=== PATIENT | female | born 1970 | race American Indian/Alaskan Native ===

== ENCOUNTER 2018-01-18 09:27 | Inpatient (IN) | payer MEDICARE ==
[2018-01-18] MEDS ORDERED: SOLU-Medrol IV ONE (09:54)
[2018-01-18] MEDS ORDERED: ATROVENT IH ONE (09:54)
[2018-01-18] MEDS ORDERED: PROVENTIL IH ONE (09:54)
[2018-01-18 10:16] LABS: Basophils # (Auto) 0.1 K/mm3 (0.0-0.1); Basophils % (Auto) 1.3 % (0.0-1.8); Eosinophils # (Auto) 0.1 K/mm3 (0.0-0.4); Eosinophils % (Auto) 1.2 % (0.0-4.3); Hematocrit 39.3 % (30.3-42.9); Hemoglobin 12.8 gm/dl (10.1-14.3); Lymphocytes # (Auto) 2.8 K/mm3 (1.2-5.4); Lymphocytes % (Auto) 37.7 % (13.4-35.0); Mean Corpuscular HGB Conc 33 % (30-34); Mean Corpuscular Hemoglobin 31 pg (28-32); Mean Corpuscular Volume 95 fl (79-97); Monocytes # (Auto) 0.8 K/mm3 (0.0-0.8); Monocytes % (Auto) 11.5 % (0.0-7.3); Platelet Count 247 K/mm3 (140-440); Red Blood Count 4.14 M/mm3 (3.65-5.03); Red Cell Distribution Width 15.2 % (13.2-15.2)
[2018-01-18] MEDS ORDERED: MAGNESIUM SULFATE 2GM/50ML 2 GM/50 ML BAG IV ONE (10:30)
[2018-01-18 10:32] LABS: BUN/Creatinine Ratio 20; Blood Urea Nitrogen 16 mg/dL (7-17); Calcium 9.4 mg/dL (8.4-10.2); Hemolysis Index 8
--- NOTE | 2018-01-18 10:35 | Emergency Department Report ---
ED Shortness of Breath HPI - General Chief Complaint: Dyspnea/Respdistress Stated Complaint: Time Seen by Provider: 01/18/18 09:43 Source: patient, EMS Mode of arrival: Stretcher Limitations: Other - History of Present Illness Initial Comments: 47 yo old female with a past medical history CHF, COPD (2 L oxygen dependent), diabetes, and hypertension presents to the hospital complaints of wheezing, shortness of breath, and hypoxia. Patient presents from [facility] with reported O2 saturation of 74% on room air. Patient apparently was recently discharged from [facility] with a diagnosis of pneumonia. Patient continues to have coughing, wheezing, and shortness of breath. Recently treated with antibiotics and steroids. As per medical record review patient was admitted here in September with acute hypoxic respiratory failure requiring intubation. No pain reported. - Related Data Home Medications Medication Instructions Recorded Confirmed Last Taken Docusate Sodium [Colace CAP] 100 mg PO BID 08/22/17 01/18/18 Unknown Fluticasone [Flonase] 1 spray NS BID 08/22/17 01/18/18 Unknown Loratadine [Claritin] 10 mg PO DAILY 08/22/17 01/18/18 Unknown Metformin HCl [Glucophage] 1,000 mg PO BID 08/22/17 01/18/18 Unknown Methadone [Dolophine] 5 mg PO BID 08/22/17 01/18/18 Unknown Furosemide [Lasix] 20 mg PO DAILY 01/18/18 01/18/18 Unknown Magnesium Citrate [Citrate of 300 ml PO DAILY 01/18/18 01/18/18 Unknown Magnesia] Previous Rx's Medication Instructions Recorded Last Taken Type Aspirin [Aspirin TAB] 325 mg PO QDAY #30 tablet 09/02/17 Unknown Rx Carvedilol [Coreg] 3.125 mg PO BID #60 tablet 09/02/17 Unknown Rx Losartan [Cozaar] 100 mg PO QDAY #30 tablet 09/02/17 Unknown Rx Famotidine [Pepcid] 20 mg PO BID #60 tablet 10/06/17 Unknown Rx Allergies Allergy/AdvReac Type Severity Reaction Status Date / Time Penicillins Allergy Unknown Verified 08/22/17 02:40 Sulfa (Sulfonamide Allergy Unknown Verified 08/22/17 02:41 Antibiotics) sulfabenzamide Allergy Unknown Verified 08/22/17 02:41 ED Review of Systems ROS: Stated complaint: Other details as noted in HPI Comment: All other systems reviewed and negative ED Past Medical Hx - Past Medical History Hx Hypertension: Yes Hx Heart Attack/AMI: No Hx Congestive Heart Failure: Yes Hx Diabetes: Yes Hx Deep Vein Thrombosis: No Hx Asthma: Yes Hx COPD: Yes - Surgical History Hx Pacemaker: No Hx Internal Defibrillator: No Additional Surgical History: Partial hysterectomy - Social History Smoking Status: Never Smoker Substance Use Type: None - Medications Home Medications: Home Medications Medication Instructions Recorded Confirmed Last Taken Type Docusate Sodium [Colace CAP] 100 mg PO BID 08/22/17 01/18/18 Unknown History Fluticasone [Flonase] 1 spray NS BID 08/22/17 01/18/18 Unknown History Loratadine [Claritin] 10 mg PO DAILY 08/22/17 01/18/18 Unknown History Metformin HCl [Glucophage] 1,000 mg PO BID 08/22/17 01/18/18 Unknown History Methadone [Dolophine] 5 mg PO BID 08/22/17 01/18/18 Unknown History Aspirin [Aspirin TAB] 325 mg PO QDAY #30 tablet 09/02/17 01/18/18 Unknown Rx Carvedilol [Coreg] 3.125 mg PO BID #60 tablet 09/02/17 01/18/18 Unknown Rx Losartan [Cozaar] 100 mg PO QDAY #30 tablet 09/02/17 01/18/18 Unknown Rx Famotidine [Pepcid] 20 mg PO BID #60 tablet 10/06/17 01/18/18 Unknown Rx Furosemide [Lasix] 20 mg PO DAILY 01/18/18 01/18/18 Unknown History Magnesium Citrate [Citrate of 300 ml PO DAILY 01/18/18 01/18/18 Unknown History Magnesia] ED Physical Exam - General Limitations: Other - Other Other exam information: General: No limitations, patient is alert in no acute distress Head exam: Atraumatic, normocephalic Eyes exam: Normal appearance ENT: Moist mucous membrane, nasal congestion Neck exam: Normal inspection, full range of motion, no meningismus nontender Respiratory exam: Bilateral wheezing, productive cough, chest wall nontender Cardiovascular: Normal rate and rhythm, normal heart sounds Abdomen: Soft, nondistended, and nontender, with normal bowel sounds, no rebound, or guarding Extremity: Full range of motion normal inspection no deformity, no edema or calf tenderness Back: Normal Inspection, full range of motion, no tenderness Neurologic: Alert, oriented x3, cranial nerves intact, right wrist drop from ( chronic). Equal arm and leg strength without focal deficit. Psychiatric: normal affect, normal mood Skin: Warm, dry, intact ED Course Vital Signs 01/18/18 01/18/18 01/18/18 09:59 10:00 10:15 Temperature Pulse Rate 90 104 H Pulse Rate [ 98 H Anterior Bilateral Throughout] Respiratory 21 18 Rate Respiratory 16 Rate [Anterior Bilateral Throughout] Blood Pressure 153/126 O2 Sat by Pulse 93 100 Oximetry 01/18/18 01/18/18 01/18/18 11:00 11:25 11:51 Temperature Pulse Rate 96 H 98 H Pulse Rate [ 97 H Anterior Bilateral Throughout] Respiratory 18 16 Rate Respiratory 16 Rate [Anterior Bilateral Throughout] Blood Pressure 119/82 119/82 O2 Sat by Pulse 95 97 Oximetry 01/18/18 01/18/18 01/18/18 11:56 12:00 12:11 Temperature 97.5 F L Pulse Rate 97 H 97 H Pulse Rate [ Anterior Bilateral Throughout] Respiratory 21 16 Rate Respiratory Rate [Anterior Bilateral Throughout] Blood Pressure 116/92 119/82 O2 Sat by Pulse 95 96 Oximetry 01/18/18 01/18/18 01/18/18 12:21 12:29 12:31 Temperature Pulse Rate 103 H 98 H 98 H Pulse Rate [ Anterior Bilateral Throughout] Respiratory 15 18 17 Rate Respiratory Rate [Anterior Bilateral Throughout] Blood Pressure 119/82 116/92 119/82 O2 Sat by Pulse 97 94 94 Oximetry 01/18/18 01/18/18 01/18/18 12:41 12:51 13:00 Temperature Pulse Rate 99 H 96 H 95 H Pulse Rate [ Anterior Bilateral Throughout] Respiratory 15 18 16 Rate Respiratory Rate [Anterior Bilateral Throughout] Blood Pressure 119/82 119/82 123/80 O2 Sat by Pulse 94 95 94 Oximetry ED Medical Decision Making - Lab Data Result diagrams: 01/18/18 09:53 01/18/18 09:53 Lab Results 01/18/18 01/18/18 01/18/18 Range/Units 09:53 09:53 10:05 WBC 7.4 (4.5-11.0) K/mm3 RBC 4.14 (3.65-5.03) M/mm3 Hgb 12.8 (10.1-14.3) gm/dl Hct 39.3 (30.3-42.9) % MCV 95 (79-97) fl MCH 31 (28-32) pg MCHC 33 (30-34) % RDW 15.2 (13.2-15.2) % Plt Count 247 (140-440) K/mm3 Lymph % (Auto) 37.7 H (13.4-35.0) % Ashley % (Auto) 11.5 H (0.0-7.3) % Eos % (Auto) 1.2 (0.0-4.3) % Baso % (Auto) 1.3 (0.0-1.8) % Lymph # 2.8 (1.2-5.4) K/mm3 Ashley # 0.8 (0.0-0.8) K/mm3 Eos # 0.1 (0.0-0.4) K/mm3 Baso # 0.1 (0.0-0.1) K/mm3 Seg Neutrophils % 48.3 (40.0-70.0) % Seg Neutrophils # 3.6 (1.8-7.7) K/mm3 POC ABG pH (7.35-7.45) POC ABG pCO2 (35-45) POC ABG pO2 (80-105) POC ABG HCO3 POC ABG Total CO2 POC ABG O2 Sat POC ABG Base Excess FiO2 % Sodium 136 L (137-145) mmol/L Potassium 4.5 (3.6-5.0) mmol/L Chloride 98.6 (98-107) mmol/L Carbon Dioxide 28 (22-30) mmol/L Anion Gap 14 mmol/L BUN 16 (7-17) mg/dL Creatinine 0.8 (0.7-1.2) mg/dL Estimated GFR > 60 ml/min BUN/Creatinine Ratio 20 % Glucose 105 H (65-100) mg/dL Calcium 9.4 (8.4-10.2) mg/dL NT-Pro-B Natriuret Pep 100.8 (0-450) pg/mL 01/18/18 Range/Units 10:16 WBC (4.5-11.0) K/mm3 RBC (3.65-5.03) M/mm3 Hgb (10.1-14.3) gm/dl Hct (30.3-42.9) % MCV (79-97) fl MCH (28-32) pg MCHC (30-34) % RDW (13.2-15.2) % Plt Count (140-440) K/mm3 Lymph % (Auto) (13.4-35.0) % Ashley % (Auto) (0.0-7.3) % Eos % (Auto) (0.0-4.3) % Baso % (Auto) (0.0-1.8) % Lymph # (1.2-5.4) K/mm3 Ashley # (0.0-0.8) K/mm3 Eos # (0.0-0.4) K/mm3 Baso # (0.0-0.1) K/mm3 Seg Neutrophils % (40.0-70.0) % Seg Neutrophils # (1.8-7.7) K/mm3 POC ABG pH 7.303 L (7.35-7.45) POC ABG pCO2 70.1 H (35-45) POC ABG pO2 68 L (80-105) POC ABG HCO3 34.7 POC ABG Total CO2 37 POC ABG O2 Sat 90 POC ABG Base Excess 8 FiO2 40 % Sodium (137-145) mmol/L Potassium (3.6-5.0) mmol/L Chloride (98-107) mmol/L Carbon Dioxide (22-30) mmol/L Anion Gap mmol/L BUN (7-17) mg/dL Creatinine (0.7-1.2) mg/dL Estimated GFR ml/min BUN/Creatinine Ratio % Glucose (65-100) mg/dL Calcium (8.4-10.2) mg/dL NT-Pro-B Natriuret Pep (0-450) pg/mL - EKG Data -: EKG Interpreted by Wi EKG shows normal: sinus rhythm, axis (qrs -16), QRS complexes (qrsd 89), ST-T waves (no stemi/t inv) Rate: tachycardia (101) - EKG Data When compared to previous EKG there are: no significant change - Radiology Data Radiology results: report reviewed AP CHEST: HISTORY: Shortness of breath Borderline heart size and pulmonary venous structures appear stable since 10/09/17. Mild linear scarring in the perihilar regions is also stable. No consolidation, pleural effusion or pneumothorax is identified. IMPRESSION: Borderline heart size and pulmonary venous structures. Perihilar scarring. No change since 10/09/17. - Medical Decision Making copd exacerbation pt requiring additional o2 support (above 2L) for adequate oxygenation tx with nebs, steroids, mag + co2 retention likely chronic given ph however compared to pervious values this year particulary May PH and co2 normal. BIPAP will be initiated cxr naf hosptitalist informed for admission repeat abg after 1.5 hr on bipap shows slightly worsening resp acidosis. BIPAP settings changed, Dr Daniels aware, dispo changed tele. pt will be monitored and abg repeated after changes as per further hospitalist orders - Differential Diagnosis pneumonia, CHF, bronchitis and COPD Critical Care Time: No Critical care attestation.: If time is entered above; I have spent that time in minutes in the direct care of this critically ill patient, excluding procedure time. ED Disposition Clinical Impression: COPD exacerbation, CO2 retention, Hypoxia, O2 dependent Disposition: 09 OP ADMIT IP TO THIS HOSP Is pt being admited?: Yes Condition: Stable Time of Disposition: 11:50 (Dr daniels/hosp)
--- NOTE | 2018-01-18 10:48 | XRay Report ---
AP CHEST: HISTORY: Shortness of breath Borderline heart size and pulmonary venous structures appear stable since 10/09/17. Mild linear scarring in the perihilar regions is also stable. No consolidation, pleural effusion or pneumothorax is identified. IMPRESSION: Borderline heart size and pulmonary venous structures. Perihilar scarring. No change since 10/09/17.
[2018-01-18] MEDS ORDERED: NON-FORMULARY (Metformin Hcl [Glucophage] 1,000 MG) PO SCH (15:30)
[2018-01-18] MEDS ORDERED: SODIUM CHLORIDE FLUSH SYRINGE 10 ML IV PRN ×2 (15:31→17:52)
[2018-01-18] MEDS ORDERED: DILAUDID IV PRN (15:31)
[2018-01-18] MEDS ORDERED: TYLENOL PO PRN ×2 (15:31→17:52)
[2018-01-18] MEDS ORDERED: ZOFRAN IV PRN ×2 (15:31→17:52)
[2018-01-18] MEDS ORDERED: PERCOCET 5/325 PO PRN ×2 (15:31→17:51)
[2018-01-18] MEDS ORDERED: SOLU-Medrol IV SCH (16:00)
[2018-01-18] MEDS: FLONASE NS SCH ×2 (16:00→22:00)
[2018-01-18] MEDS: DOLOPHINE PO SCH ×2 (16:00→22:53)
[2018-01-18] MEDS: CLARITIN PO SCH (16:00)
[2018-01-18] MEDS ORDERED: PEPCID PO SCH (16:00)
[2018-01-18] MEDS ORDERED: DUONEB *Not for PRN Use IH ONE (16:53)
[2018-01-18] MEDS: DUONEB *Not for PRN Use IH SCH ×2 (17:02→21:09)
[2018-01-18] MEDS: LEVAQUIN 750MG/150ML 750 MG/150 ML BAG IV SCH ×2 (17:53→18:06)
[2018-01-18] MEDS ORDERED: PROVENTIL IH PRN (17:56)
[2018-01-18] MEDS: ASPIRIN PO SCH (18:03)
[2018-01-18] MEDS ORDERED: HumuLIN R ONE (18:04)
[2018-01-18] MEDS ORDERED: GLUCOPHAGE ONE (18:05)
[2018-01-18] MEDS ORDERED: ASPIRIN ONE (18:05)
[2018-01-18] MEDS: GLUCOPHAGE PO SCH (18:06)
[2018-01-18] MEDS ORDERED: PERCOCET 5/325 ONE (18:06)
[2018-01-18] MEDS: HumaLOG SUB-Q SCH ×2 (18:06→21:51)
[2018-01-18] MEDS ORDERED: LEVAQUIN 750MG/150ML 750 MG/150 ML BAG IV ONE (18:09)
[2018-01-18] MEDS ORDERED: LASIX ONE (19:52)
[2018-01-18] MEDS ORDERED: PEPCID ONE (19:52)
[2018-01-18] MEDS ORDERED: CITRATE OF MAGNESIA PO ONE (19:52)
[2018-01-18] MEDS ORDERED: SOLU-Medrol ONE ×2 (19:53→19:54)
[2018-01-18] MEDS ORDERED: COLACE ONE (19:53)
[2018-01-18] MEDS ORDERED: COREG ONE (19:53)
[2018-01-18] MEDS ORDERED: COZAAR ONE (19:54)
[2018-01-18] MEDS: CITRATE OF MAGNESIA PO SCH (20:29)
[2018-01-18] MEDS: COLACE PO SCH ×2 (20:29→22:54)
[2018-01-18] MEDS: COREG PO SCH ×2 (20:29→22:55)
[2018-01-18] MEDS: SOLU-Medrol IV SCH ×2 (20:37→22:55)
[2018-01-18] MEDS: COZAAR PO SCH (20:37)
[2018-01-18] MEDS: LASIX PO SCH (20:37)
[2018-01-18] MEDS ORDERED: SODIUM CHLORIDE FLUSH SYRINGE 10 ML IV SCH (22:00)
[2018-01-18] MEDS: PEPCID PO SCH (22:54)
[2018-01-18] MEDS: SODIUM CHLORIDE FLUSH SYRINGE 10 ML IV SCH (22:56)
[2018-01-19 05:16] LABS: Basophils % (Auto) 0.3 % (0.0-1.8); Hematocrit 41.4 % (30.3-42.9); Lymphocytes % (Auto) 14.8 % (13.4-35.0); Mean Corpuscular HGB Conc 32 % (30-34); Mean Corpuscular Hemoglobin 30 pg (28-32); Mean Corpuscular Volume 95 fl (79-97); Monocytes # (Auto) 0.1 K/mm3 (0.0-0.8); Monocytes % (Auto) 1.8 % (0.0-7.3); Platelet Count 252 K/mm3 (140-440); Red Blood Count 4.35 M/mm3 (3.65-5.03)
[2018-01-19] MEDS: SOLU-Medrol IV SCH ×3 (05:34→21:59)
[2018-01-19 05:44] LABS: Alanine Aminotransferase 12 units/L (7-56); Albumin 4.2 g/dL (3.9-5); BUN/Creatinine Ratio 29; Blood Urea Nitrogen 23 mg/dL (7-17); Calcium 9.3 mg/dL (8.4-10.2); Hemolysis Index 3
[2018-01-19] MEDS: MORPHINE IV PRN ×2 (06:21→17:33)
[2018-01-19] MEDS: DUONEB *Not for PRN Use IH SCH ×3 (07:39→19:58)
--- NOTE | 2018-01-19 08:26 | History and Physical Report ---
History of Present Illness Date of examination: 01/18/18 Date of admission: 01/18/18 12:11 Chief complaint: CC Increasing SOB for 1 day History of present illness: History of Present Illness: 47 yo old female with a past medical history CHF, COPD (2 L oxygen dependent), diabetes, and hypertension presents to the hospital complaints of wheezing, shortness of breath, and hypoxia. Patient presents from [facility] with reported O2 saturation of 74% on room air. Patient apparently was recently discharged from [facility] with a diagnosis of pneumonia. Patient continues to have coughing, wheezing, and shortness of breath. Recently treated with antibiotics and steroids. As per medical record review patient was admitted here in September with acute hypoxic respiratory failure requiring intubation. No pain reported. Past Medical History Hx Hypertension: Yes Hx Heart Attack/AMI: No Hx Congestive Heart Failure: Yes Hx Diabetes: Yes Hx Deep Vein Thrombosis: No Hx Asthma: Yes Hx COPD: Yes Surgical History Partial hysterectomy Social History Smoking Status: Never Smoker Substance Use Type: None Family History Htn - Medications Home Medications: Home Medications Medication Instructions Recorded Confirmed Last Taken Type Docusate Sodium [Colace CAP] 100 mg PO BID 08/22/17 01/18/18 Unknown History Fluticasone [Flonase] 1 spray NS BID 08/22/17 01/18/18 Unknown History Loratadine [Claritin] 10 mg PO DAILY 08/22/17 01/18/18 Unknown History Metformin HCl [Glucophage] 1,000 mg PO BID 08/22/17 01/18/18 Unknown History Methadone [Dolophine] 5 mg PO BID 08/22/17 01/18/18 Unknown History Aspirin [Aspirin TAB] 325 mg PO QDAY #30 tablet 09/02/17 01/18/18 Unknown Rx Carvedilol [Coreg] 3.125 mg PO BID #60 tablet 09/02/17 01/18/18 Unknown Rx Losartan [Cozaar] 100 mg PO QDAY #30 tablet 09/02/17 01/18/18 Unknown Rx Famotidine [Pepcid] 20 mg PO BID #60 tablet 10/06/17 01/18/18 Unknown Rx Furosemide [Lasix] 20 mg PO DAILY 01/18/18 01/18/18 Unknown History Magnesium Citrate [Citrate of 300 ml PO DAILY 01/18/18 01/18/18 Unknown History Magnesia] Review of Systems ROS: Stated complaint: Other details as noted in HPI Comment: All other systems reviewed and negative Medications and Allergies Allergies Allergy/AdvReac Type Severity Reaction Status Date / Time Penicillins Allergy Unknown Verified 08/22/17 02:40 Sulfa (Sulfonamide Allergy Unknown Verified 08/22/17 02:41 Antibiotics) sulfabenzamide Allergy Unknown Verified 08/22/17 02:41 Home Medications Medication Instructions Recorded Confirmed Last Taken Type Docusate Sodium [Colace CAP] 100 mg PO BID 08/22/17 01/18/18 Unknown History Fluticasone [Flonase] 1 spray NS BID 08/22/17 01/18/18 Unknown History Loratadine [Claritin] 10 mg PO DAILY 08/22/17 01/18/18 Unknown History Metformin HCl [Glucophage] 1,000 mg PO BID 08/22/17 01/18/18 Unknown History Methadone [Dolophine] 5 mg PO BID 08/22/17 01/18/18 Unknown History Aspirin [Aspirin TAB] 325 mg PO QDAY #30 tablet 09/02/17 01/18/18 Unknown Rx Carvedilol [Coreg] 3.125 mg PO BID #60 tablet 09/02/17 01/18/18 Unknown Rx Losartan [Cozaar] 100 mg PO QDAY #30 tablet 09/02/17 01/18/18 Unknown Rx Famotidine [Pepcid] 20 mg PO BID #60 tablet 10/06/17 01/18/18 Unknown Rx Furosemide [Lasix] 20 mg PO DAILY 01/18/18 01/18/18 Unknown History Magnesium Citrate [Citrate of 300 ml PO DAILY 01/18/18 01/18/18 Unknown History Magnesia] Active Meds: Active Medications Acetaminophen (Tylenol) 650 mg PO Q4H PRN PRN Reason: Pain MILD(1-3)/Fever >100.5/ARMSTRONG Albuterol (Proventil) 2.5 mg IH Q4HRT PRN PRN Reason: Shortness Of Breath Albuterol/Ipratropium (Duoneb *Not For Prn Use*) 1 ampul IH TIDRT [facility] Aspirin (Aspirin) 325 mg PO QDAY [facility] Last Admin: 01/18/18 18:03 Dose: 325 mg Carvedilol (Coreg) 3.125 mg PO BID [facility] Last Admin: 01/18/18 22:55 Dose: 3.125 mg Docusate Sodium (Colace) 100 mg PO BID [facility] Last Admin: 01/18/18 22:54 Dose: 100 mg Famotidine (Pepcid) 20 mg PO BID [facility] Last Admin: 01/18/18 22:54 Dose: 20 mg Fluticasone Propionate (Flonase) 50 mcg NS BID [facility] Furosemide (Lasix) 20 mg PO DAILY [facility] Last Admin: 01/18/18 20:37 Dose: 20 mg Hydromorphone HCl (Dilaudid) 0.5 mg IV Q3H PRN PRN Reason: Pain , Severe (7-10) Levofloxacin/Dextrose (Levaquin 750mg/150ml) 750 mg in 150 mls @ 100 mls/hr IV Q24HR [facility]; Protocol Last Infusion: 01/18/18 19:36 Dose: Infused Insulin Human Lispro (Humalog) 0 unit SUB-Q ACHS [facility]; Protocol Last Admin: 01/18/18 21:51 Dose: 3 unit Loratadine (Claritin) 10 mg PO DAILY [facility] Losartan Potassium (Cozaar) 100 mg PO QDAY [facility] Last Admin: 01/18/18 20:37 Dose: 100 mg Magnesium Citrate (Citrate Of Magnesia) 300 ml PO DAILY [facility] Last Admin: 01/18/18 20:29 Dose: 300 ml Metformin HCl (Glucophage) 1,000 mg PO BIDDIAB [facility] Last Admin: 01/18/18 18:06 Dose: 1,000 mg Methadone HCl (Dolophine) 5 mg PO BID [facility] Last Admin: 01/18/18 22:53 Dose: 5 mg Methylprednisolone Sodium Succinate (Solu-Medrol) 80 mg IV Q8HR [facility] Last Admin: 01/19/18 05:34 Dose: 80 mg Morphine Sulfate (Morphine) 2 mg IV Q4H PRN PRN Reason: Pain, Moderate (4-6) Last Admin: 01/19/18 06:21 Dose: 2 mg Ondansetron HCl (Zofran) 4 mg IV Q8H PRN PRN Reason: Nausea And Vomiting Ondansetron HCl (Zofran) 4 mg IV Q8H PRN PRN Reason: Nausea And Vomiting Oxycodone/Acetaminophen (Percocet 5/325) 1 tab PO Q6H PRN PRN Reason: Pain, Moderate (4-6) Last Admin: 01/18/18 18:07 Dose: 1 tab Sodium Chloride (Sodium Chloride Flush Syringe 10 Ml) 10 ml IV BID [facility] Last Admin: 01/18/18 22:56 Dose: 10 ml Sodium Chloride (Sodium Chloride Flush Syringe 10 Ml) 10 ml IV PRN PRN PRN Reason: LINE FLUSH Exam - Constitutional Vitals: Temp Pulse Resp BP Pulse Ox 97.8 F 92 H 12 126/91 96 01/19/18 08:00 01/19/18 07:50 01/19/18 07:50 01/19/18 07:00 01/19/18 07:45 General appearance: Present: mild distress, well-nourished - EENT Eyes: Present: PERRL ENT: hearing intact, clear oral mucosa - Neck Neck: Present: supple, normal ROM - Respiratory Respiratory effort: normal Respiratory: bilateral: rhonchi - Cardiovascular Heart rate: 78 Rhythm: regular Heart Sounds: Present: S1 & S2. Absent: rub, click - Extremities Extremities: no ischemia, pulses intact, pulses symmetrical, No edema Peripheral Pulses: within normal limits - Abdominal General gastrointestinal: Present: soft, non-tender, non-distended, normal bowel sounds Female genitourinary: Present: normal - Integumentary Integumentary: Present: clear, warm, dry - Musculoskeletal Musculoskeletal: gait normal, strength equal bilaterally - Psychiatric Psychiatric: appropriate mood/affect, intact judgment & insight - Neurologic Neurologic: CNII-XII intact, moves all extremities - Allied Health Allied health notes reviewed: nursing, case management Results - Labs CBC & Chem 7: 01/19/18 04:09 01/19/18 04:09 Labs: Laboratory Last Values WBC 6.8 K/mm3 (4.5-11.0) 01/19/18 04:09 RBC 4.35 M/mm3 (3.65-5.03) 01/19/18 04:09 Hgb 13.0 gm/dl (10.1-14.3) 01/19/18 04:09 Hct 41.4 % (30.3-42.9) 01/19/18 04:09 MCV 95 fl (79-97) 01/19/18 04:09 MCH 30 pg (28-32) 01/19/18 04:09 MCHC 32 % (30-34) 01/19/18 04:09 RDW 15.0 % (13.2-15.2) 01/19/18 04:09 Plt Count 252 K/mm3 (140-440) 01/19/18 04:09 Lymph % (Auto) 14.8 % (13.4-35.0) 01/19/18 04:09 [place] % (Auto) 1.8 % (0.0-7.3) 01/19/18 04:09 Eos % (Auto) 0.0 % (0.0-4.3) 01/19/18 04:09 Baso % (Auto) 0.3 % (0.0-1.8) 01/19/18 04:09 Lymph # 1.0 K/mm3 (1.2-5.4) L 01/19/18 04:09 [place] # 0.1 K/mm3 (0.0-0.8) 01/19/18 04:09 Eos # 0.0 K/mm3 (0.0-0.4) 01/19/18 04:09 Baso # 0.0 K/mm3 (0.0-0.1) 01/19/18 04:09 Seg Neutrophils % 83.1 % (40.0-70.0) H 01/19/18 04:09 Seg Neutrophils # 5.7 K/mm3 (1.8-7.7) 01/19/18 04:09 POC ABG pH 7.431 (7.35-7.45) 01/19/18 06:30 POC ABG pCO2 50.9 (35-45) H 01/19/18 06:30 POC ABG pO2 91 (80-105) 01/19/18 06:30 POC ABG HCO3 33.9 01/19/18 06:30 POC ABG Total CO2 35 01/19/18 06:30 POC ABG O2 Sat 97 01/19/18 06:30 POC ABG Base Excess 10 01/19/18 06:30 FiO2 5 % 01/19/18 06:30 Sodium 138 mmol/L (137-145) 01/19/18 04:09 Potassium 5.7 mmol/L (3.6-5.0) H D 01/19/18 04:09 Chloride 98.8 mmol/L (98-107) 01/19/18 04:09 Carbon Dioxide 31 mmol/L (22-30) H 01/19/18 04:09 Anion Gap 14 mmol/L 01/19/18 04:09 BUN 23 mg/dL (7-17) H 01/19/18 04:09 Creatinine 0.8 mg/dL (0.7-1.2) 01/19/18 04:09 Estimated GFR > 60 ml/min 01/19/18 04:09 BUN/Creatinine Ratio 29 % 01/19/18 04:09 Glucose 169 mg/dL (65-100) H 01/19/18 04:09 POC Glucose 186 (70-105) H 01/19/18 07:59 Hemoglobin A1c 7.9 % (4-6) H 01/18/18 16:18 Calcium 9.3 mg/dL (8.4-10.2) 01/19/18 04:09 Total Bilirubin < 0.20 mg/dL (0.1-1.2) 01/19/18 04:09 AST 11 units/L (5-40) 01/19/18 04:09 ALT 12 units/L (7-56) 01/19/18 04:09 Alkaline Phosphatase 90 units/L (35-129) 01/19/18 04:09 NT-Pro-B Natriuret Pep 100.8 pg/mL (0-450) 01/18/18 10:05 Total Protein 7.1 g/dL (6.3-8.2) 01/19/18 04:09 Albumin 4.2 g/dL (3.9-5) 01/19/18 04:09 Albumin/Globulin Ratio 1.4 % 01/19/18 04:09 Short CBC 01/18/18 01/19/18 Range/Units 09:53 04:09 WBC 7.4 6.8 (4.5-11.0) K/mm3 Hgb 12.8 13.0 (10.1-14.3) gm/dl Hct 39.3 41.4 (30.3-42.9) % Plt Count 247 252 (140-440) K/mm3 BMP 01/18/18 01/19/18 09:53 04:09 Sodium 136 L 138 Potassium 4.5 5.7 H D Chloride 98.6 98.8 Carbon Dioxide 28 31 H BUN 16 23 H Creatinine 0.8 0.8 Glucose 105 H 169 H Calcium 9.4 9.3 Liver Function 01/19/18 Range/Units 04:09 Total Bilirubin < 0.20 (0.1-1.2) mg/dL AST 11 (5-40) units/L ALT 12 (7-56) units/L Alkaline Phosphatase 90 (35-129) units/L Albumin 4.2 (3.9-5) g/dL - Imaging and Cardiology EKG: report reviewed Imaging and Cardiology: CXR IMPRESSION: Borderline heart size and pulmonary venous structures. Perihilar scarring. No change since 10/09/17. Assessment and Plan Assessment and plan: Critical care Statement: The high probability of a clinically significant, sudden or life threatening deterioration of the [Pulmonary, cadiac, renal] system(s) required my full and direct attention, intervention and personal management. The aggregate critical care time was [45] minutes. This time is in addition to time spent performing reported procedures but includes the following: [x] Data Review and interpretation [x] Patient assessment and monitoring of vital signs [x] Documentation [x] Medication orders and management Advance Directives: Yes (Full code) VTE prophylaxis?: Chemical Plan of care discussed with patient/family: Yes - Patient Problems (1) Hypercapnic respiratory failure Current Visit: No Status: Acute Qualifiers: Chronicity: acute on chronic Qualified Code(s): J96.22 - Acute and chronic respiratory failure with hypercapnia Plan to address problem: COnt Bipap If necessary intubate ICU admit Senior System Operator consult (2) COPD exacerbation Current Visit: Yes Status: Acute Plan to address problem: IV Solumedrol IV Levaquin and Duonebs Bipap (3) HTN (hypertension) Current Visit: Yes Status: Chronic Qualifiers: Hypertension type: essential hypertension Qualified Code(s): I10 - Essential (primary) hypertension Plan to address problem: Cont Antihypertensives (4) CHF (congestive heart failure) Current Visit: Yes Status: Chronic Qualifiers: Heart failure type: combined systolic and diastolic Plan to address problem: Cont Furosemide ARB'sand Beta pedro (5) GERD (gastroesophageal reflux disease) Current Visit: Yes Status: Acute Qualifiers: Esophagitis presence: without esophagitis Qualified Code(s): K21.9 - Gastro -esophageal reflux disease without esophagitis Plan to address problem: Cont PPI's (6) T2DM (type 2 diabetes mellitus) Current Visit: Yes Status: Chronic Qualifiers: Diabetes mellitus intermediate frame tender insulin use: without intermediate frame tender use Plan to address problem: Cont Oral Hypoglycemics and coverage (7) DVT prophylaxis Current Visit: Yes Status: Acute Plan to address problem: On lovenox and GI prophylaxis
[2018-01-19] MEDS: HumaLOG SUB-Q SCH ×4 (08:58→22:13)
[2018-01-19] MEDS: COLACE PO SCH ×2 (09:04→22:00)
[2018-01-19] MEDS: ASPIRIN PO SCH (09:04)
[2018-01-19] MEDS: CLARITIN PO SCH (09:04)
[2018-01-19] MEDS: DOLOPHINE PO SCH ×2 (09:04→22:00)
[2018-01-19] MEDS: COZAAR PO SCH (09:04)
[2018-01-19] MEDS: LEVAQUIN 750MG/150ML 750 MG/150 ML BAG IV SCH (09:05)
[2018-01-19] MEDS: PEPCID PO SCH ×2 (09:05→22:00)
[2018-01-19] MEDS: GLUCOPHAGE PO SCH ×2 (09:05→17:33)
[2018-01-19] MEDS: COREG PO SCH ×2 (09:05→22:01)
[2018-01-19] MEDS: LASIX PO SCH (09:05)
[2018-01-19] MEDS: CITRATE OF MAGNESIA PO SCH (09:05)
[2018-01-19] MEDS: FLONASE NS SCH ×2 (09:06→22:19)
[2018-01-19] MEDS: SODIUM CHLORIDE FLUSH SYRINGE 10 ML IV SCH ×2 (09:06→22:03)
[2018-01-19] MEDS ORDERED: KIONEX PO ONE (10:00)
[2018-01-19] MEDS: ATIVAN PO SCH ×4 (10:00→22:12)
[2018-01-19] MEDS: MIRALAX 3350 PO SCH (10:01)
[2018-01-19] MEDS: celeXA PO SCH (10:01)
--- NOTE | 2018-01-19 10:57 | Consultation ---
History of Present Illness Consult date: 01/19/18 Requesting physician: JENNY JIMENEZ Medications and Allergies Allergies Allergy/AdvReac Type Severity Reaction Status Date / Time Penicillins Allergy Unknown Verified 08/22/17 02:40 Sulfa (Sulfonamide Allergy Unknown Verified 08/22/17 02:41 Antibiotics) sulfabenzamide Allergy Unknown Verified 08/22/17 02:41 Home Medications Medication Instructions Recorded Confirmed Last Taken Type Docusate Sodium [Colace CAP] 100 mg PO BID 08/22/17 01/18/18 Unknown History Fluticasone [Flonase] 1 spray NS BID 08/22/17 01/18/18 Unknown History Loratadine [Claritin] 10 mg PO DAILY 08/22/17 01/18/18 Unknown History Metformin HCl [Glucophage] 1,000 mg PO BID 08/22/17 01/18/18 Unknown History Methadone [Dolophine] 5 mg PO BID 08/22/17 01/18/18 Unknown History Aspirin [Aspirin TAB] 325 mg PO QDAY #30 tablet 09/02/17 01/18/18 Unknown Rx Carvedilol [Coreg] 3.125 mg PO BID #60 tablet 09/02/17 01/18/18 Unknown Rx Losartan [Cozaar] 100 mg PO QDAY #30 tablet 09/02/17 01/18/18 Unknown Rx Famotidine [Pepcid] 20 mg PO BID #60 tablet 10/06/17 01/18/18 Unknown Rx Furosemide [Lasix] 20 mg PO DAILY 01/18/18 01/18/18 Unknown History Magnesium Citrate [Citrate of 300 ml PO DAILY 01/18/18 01/18/18 Unknown History Magnesia] Active Meds: Active Medications Acetaminophen (Tylenol) 650 mg PO Q4H PRN PRN Reason: Pain MILD(1-3)/Fever >100.5/ARMSTRONG Albuterol (Proventil) 2.5 mg IH Q4HRT PRN PRN Reason: Shortness Of Breath Albuterol/Ipratropium (Duoneb *Not For Prn Use*) 1 ampul IH TIDRT [facility] Aspirin (Aspirin) 325 mg PO QDAY [facility] Last Admin: 01/19/18 09:04 Dose: 325 mg Carvedilol (Coreg) 3.125 mg PO BID [facility] Last Admin: 01/19/18 09:05 Dose: 3.125 mg Citalopram Hydrobromide (Celexa) 20 mg PO QDAY [facility] Last Admin: 01/19/18 10:01 Dose: 20 mg Docusate Sodium (Colace) 100 mg PO BID [facility] Last Admin: 01/19/18 09:04 Dose: 100 mg Famotidine (Pepcid) 20 mg PO BID [facility] Last Admin: 01/19/18 09:05 Dose: 20 mg Fluticasone Propionate (Flonase) 50 mcg NS BID [facility] Last Admin: 01/19/18 09:06 Dose: 50 mcg Furosemide (Lasix) 20 mg PO DAILY [facility] Last Admin: 01/19/18 09:05 Dose: 20 mg Heparin Sodium (Porcine) (Heparin) 5,000 unit SUB-Q Q8HR [facility] Hydromorphone HCl (Dilaudid) 0.5 mg IV Q3H PRN PRN Reason: Pain , Severe (7-10) Levofloxacin/Dextrose (Levaquin 750mg/150ml) 750 mg in 150 mls @ 100 mls/hr IV Q24HR [facility]; Protocol Last Admin: 01/19/18 09:05 Dose: 750 mls/hr Insulin Human Lispro (Humalog) 0 unit SUB-Q ACHS [facility]; Protocol Last Admin: 01/19/18 08:58 Dose: 2 unit Loratadine (Claritin) 10 mg PO DAILY [facility] Last Admin: 01/19/18 09:04 Dose: 10 mg Lorazepam (Ativan) 1 mg PO Q4H [facility] Last Admin: 01/19/18 10:00 Dose: 1 mg Losartan Potassium (Cozaar) 100 mg PO QDAY [facility] Last Admin: 01/19/18 09:04 Dose: 100 mg Magnesium Citrate (Citrate Of Magnesia) 300 ml PO DAILY [facility] Last Admin: 01/19/18 09:05 Dose: 300 ml Metformin HCl (Glucophage) 1,000 mg PO BIDDIAB [facility] Last Admin: 01/19/18 09:05 Dose: 1,000 mg Methadone HCl (Dolophine) 5 mg PO BID [facility] Last Admin: 01/19/18 09:04 Dose: 5 mg Methylprednisolone Sodium Succinate (Solu-Medrol) 40 mg IV Q8HR [facility] Morphine Sulfate (Morphine) 2 mg IV Q4H PRN PRN Reason: Pain, Moderate (4-6) Last Admin: 01/19/18 06:21 Dose: 2 mg Ondansetron HCl (Zofran) 4 mg IV Q8H PRN PRN Reason: Nausea And Vomiting Oxycodone/Acetaminophen (Percocet 5/325) 1 tab PO Q6H PRN PRN Reason: Pain, Moderate (4-6) Last Admin: 01/18/18 18:07 Dose: 1 tab Polyethylene Glycol (Miralax 3350) 17 gm PO QDAY [facility] Last Admin: 01/19/18 10:01 Dose: 17 gm Quetiapine Fumarate (Seroquel) 200 mg PO QHS [facility] Sodium Chloride (Sodium Chloride Flush Syringe 10 Ml) 10 ml IV BID [facility] Last Admin: 01/19/18 09:06 Dose: 10 ml Sodium Chloride (Sodium Chloride Flush Syringe 10 Ml) 10 ml IV PRN PRN PRN Reason: LINE FLUSH Trazodone HCl (Desyrel) 50 mg PO QHS [facility] Physical Examination Vital signs: Vital Signs Pulse Resp Pulse Ox 90 21 93 01/18/18 09:59 01/18/18 09:59 01/18/18 09:59 Results - Laboratory Findings CBC and BMP: 01/19/18 04:09 01/19/18 04:09 ABG POC ABG pH 7.431 (7.35-7.45) 01/19/18 06:30 POC ABG pCO2 50.9 (35-45) H 01/19/18 06:30 POC ABG pO2 91 (80-105) 01/19/18 06:30 POC ABG HCO3 33.9 01/19/18 06:30 POC ABG Total CO2 35 01/19/18 06:30 POC ABG O2 Sat 97 01/19/18 06:30 Abnormal lab findings: Abnormal Labs 01/18/18 01/18/18 01/18/18 09:53 09:53 10:16 Lymph % (Auto) 37.7 H [place] % (Auto) 11.5 H Lymph # Seg Neutrophils % POC ABG pH 7.303 L POC ABG pCO2 70.1 H POC ABG pO2 68 L Sodium 136 L Potassium Carbon Dioxide BUN Glucose 105 H POC Glucose Hemoglobin A1c 01/18/18 01/18/18 01/18/18 14:12 16:18 17:00 Lymph % (Auto) [place] % (Auto) Lymph # Seg Neutrophils % POC ABG pH 7.247 L 7.285 L POC ABG pCO2 74.3 H 68.6 H POC ABG pO2 Sodium Potassium Carbon Dioxide BUN Glucose POC Glucose Hemoglobin A1c 7.9 H 01/18/18 01/18/18 01/19/18 17:28 21:46 04:09 Lymph % (Auto) [place] % (Auto) Lymph # 1.0 L Seg Neutrophils % 83.1 H POC ABG pH POC ABG pCO2 POC ABG pO2 Sodium Potassium Carbon Dioxide BUN Glucose POC Glucose 153 H 236 H Hemoglobin A1c 01/19/18 01/19/18 01/19/18 04:09 06:30 07:59 Lymph % (Auto) [place] % (Auto) Lymph # Seg Neutrophils % POC ABG pH POC ABG pCO2 50.9 H POC ABG pO2 Sodium Potassium 5.7 H D Carbon Dioxide 31 H BUN 23 H Glucose 169 H POC Glucose 186 H Hemoglobin A1c
[2018-01-19] MEDS: HEPARIN SUB-Q SCH ×2 (14:16→21:59)
[2018-01-19] MEDS: DESYREL PO SCH (22:19)
[2018-01-20] MEDS: ATIVAN PO SCH ×6 (02:32→21:35)
[2018-01-20] MEDS: SOLU-Medrol IV SCH ×3 (05:51→21:34)
[2018-01-20] MEDS: HEPARIN SUB-Q SCH ×3 (05:51→21:37)
[2018-01-20] MEDS: HumaLOG SUB-Q SCH ×4 (09:23→21:37)
--- NOTE | 2018-01-20 09:23 | Progress Note ---
Subjective Date of service: 01/20/18 Objective Vital Signs - 12hr 01/19/18 01/19/18 01/19/18 22:00 22:01 23:35 Temperature 98.3 F Pulse Rate 97 H Respiratory 20 18 Rate Blood Pressure 129/62 111/63 O2 Sat by Pulse Oximetry 01/20/18 01/20/18 01/20/18 00:07 05:00 06:00 Temperature 97.9 F Pulse Rate 86 79 Respiratory 20 20 Rate Blood Pressure 149/89 O2 Sat by Pulse 96 95 88 Oximetry 01/20/18 09:00 Temperature Pulse Rate Respiratory 18 Rate Blood Pressure O2 Sat by Pulse Oximetry CBC and BMP: 01/19/18 04:09 01/19/18 04:09 ABG, PT/INR, D-dimer: ABG POC ABG pH 7.431 (7.35-7.45) 01/19/18 06:30 POC ABG pCO2 50.9 (35-45) H 01/19/18 06:30 POC ABG pO2 91 (80-105) 01/19/18 06:30 POC ABG HCO3 33.9 01/19/18 06:30 POC ABG Total CO2 35 01/19/18 06:30 POC ABG O2 Sat 97 01/19/18 06:30 Abnormal lab findings: Abnormal Labs 01/18/18 01/18/18 01/18/18 09:53 09:53 10:16 Lymph % (Auto) 37.7 H [place] % (Auto) 11.5 H Lymph # Seg Neutrophils % POC ABG pH 7.303 L POC ABG pCO2 70.1 H POC ABG pO2 68 L Sodium 136 L Potassium Carbon Dioxide BUN Glucose 105 H POC Glucose Hemoglobin A1c 01/18/18 01/18/18 01/18/18 14:12 16:18 17:00 Lymph % (Auto) [place] % (Auto) Lymph # Seg Neutrophils % POC ABG pH 7.247 L 7.285 L POC ABG pCO2 74.3 H 68.6 H POC ABG pO2 Sodium Potassium Carbon Dioxide BUN Glucose POC Glucose Hemoglobin A1c 7.9 H 01/18/18 01/18/18 01/19/18 17:28 21:46 04:09 Lymph % (Auto) [place] % (Auto) Lymph # 1.0 L Seg Neutrophils % 83.1 H POC ABG pH POC ABG pCO2 POC ABG pO2 Sodium Potassium Carbon Dioxide BUN Glucose POC Glucose 153 H 236 H Hemoglobin A1c 01/19/18 01/19/18 01/19/18 04:09 06:30 07:59 Lymph % (Auto) [place] % (Auto) Lymph # Seg Neutrophils % POC ABG pH POC ABG pCO2 50.9 H POC ABG pO2 Sodium Potassium 5.7 H D Carbon Dioxide 31 H BUN 23 H Glucose 169 H POC Glucose 186 H Hemoglobin A1c 01/19/18 01/19/18 01/19/18 11:54 16:05 21:39 Lymph % (Auto) [place] % (Auto) Lymph # Seg Neutrophils % POC ABG pH POC ABG pCO2 POC ABG pO2 Sodium Potassium Carbon Dioxide BUN Glucose POC Glucose 253 H 131 H 232 H Hemoglobin A1c 01/20/18 07:19 Lymph % (Auto) [place] % (Auto) Lymph # Seg Neutrophils % POC ABG pH POC ABG pCO2 POC ABG pO2 Sodium Potassium Carbon Dioxide BUN Glucose POC Glucose 230 H Hemoglobin A1c
[2018-01-20] MEDS: DUONEB *Not for PRN Use IH SCH ×3 (09:42→19:49)
[2018-01-20] MEDS: COZAAR PO SCH (10:12)
[2018-01-20] MEDS: DOLOPHINE PO SCH ×2 (10:12→21:34)
[2018-01-20] MEDS: COLACE PO SCH ×2 (10:13→21:35)
[2018-01-20] MEDS: FLONASE NS SCH ×2 (10:13→21:36)
[2018-01-20] MEDS: COREG PO SCH ×2 (10:13→21:35)
[2018-01-20] MEDS: PEPCID PO SCH ×2 (10:13→21:35)
[2018-01-20] MEDS: CLARITIN PO SCH (10:13)
[2018-01-20] MEDS: LASIX PO SCH (10:13)
[2018-01-20] MEDS: celeXA PO SCH (10:13)
[2018-01-20] MEDS: ASPIRIN PO SCH (10:14)
[2018-01-20] MEDS: LEVAQUIN 750MG/150ML 750 MG/150 ML BAG IV SCH (10:14)
[2018-01-20] MEDS: SODIUM CHLORIDE FLUSH SYRINGE 10 ML IV SCH ×2 (10:30→21:34)
[2018-01-20] MEDS: CITRATE OF MAGNESIA PO SCH (10:31)
[2018-01-20] MEDS: MIRALAX 3350 PO SCH (10:31)
[2018-01-20] MEDS: GLUCOPHAGE PO SCH ×2 (10:34→17:35)
[2018-01-20] MEDS: MORPHINE IV PRN ×2 (12:41→19:56)
--- NOTE | 2018-01-20 17:27 | Progress Note ---
Assessment and Plan Critical care Statement: The high probability of a clinically significant, sudden or life threatening deterioration of the [Pulmonary, cadiac, renal] system(s) required my full and direct attention, intervention and personal management. The aggregate critical care time was [45] minutes. This time is in addition to time spent performing reported procedures but includes the following: [x] Data Review and interpretation [x] Patient assessment and monitoring of vital signs [x] Documentation [x] Medication orders and management - Patient Problems (1) Hypercapnic respiratory failure Current Visit: No Status: Acute Qualifiers: Chronicity: acute on chronic Qualified Code(s): J96.22 - Acute and chronic respiratory failure with hypercapnia Plan to address problem: Improved Off Bipap Wants to be transferred to floor (2) COPD exacerbation Current Visit: Yes Status: Acute Plan to address problem: IV Solumedrol IV Levaquin and Duonebs Bipap (3) HTN (hypertension) Current Visit: Yes Status: Chronic Qualifiers: Hypertension type: essential hypertension Qualified Code(s): I10 - Essential (primary) hypertension Plan to address problem: Cont Antihypertensives (4) CHF (congestive heart failure) Current Visit: Yes Status: Chronic Qualifiers: Heart failure type: combined systolic and diastolic Plan to address problem: Cont Furosemide ARB'sand Beta pedro (5) GERD (gastroesophageal reflux disease) Current Visit: Yes Status: Acute Qualifiers: Esophagitis presence: without esophagitis Qualified Code(s): K21.9 - Gastro -esophageal reflux disease without esophagitis Plan to address problem: Cont PPI's (6) T2DM (type 2 diabetes mellitus) Current Visit: Yes Status: Chronic Qualifiers: Diabetes mellitus half-way insulin use: without heavy media operator use Plan to address problem: Cont Oral Hypoglycemics and coverage (7) DVT prophylaxis Current Visit: Yes Status: Acute Plan to address problem: On lovenox and GI prophylaxis Subjective Date of service: 01/19/18 Principal diagnosis: Acute resp failure Interval history: Doing better Off Bipap Objective - Constitutional Vitals: Vital Signs - 12hr 01/20/18 01/20/18 01/20/18 06:00 09:00 09:30 Temperature 97.9 F Pulse Rate 79 Pulse Rate [ 100 H Anterior Bilateral Throughout] Respiratory 20 18 Rate Respiratory 18 Rate [Anterior Bilateral Throughout] Blood Pressure 149/89 O2 Sat by Pulse 88 Oximetry 1001/20/18 01/20/18 09:37 10:12 11:43 Temperature Pulse Rate 95 H Pulse Rate [ 98 H Anterior Bilateral Throughout] Respiratory Rate Respiratory 18 Rate [Anterior Bilateral Throughout] Blood Pressure 127/62 O2 Sat by Pulse 94 Oximetry 01/20/18 01/20/18 01/20/18 12:02 12:04 12:06 Temperature 98.2 F 98.1 F 98.1 F Pulse Rate 68 85 Pulse Rate [ Anterior Bilateral Throughout] Respiratory 20 20 20 Rate Respiratory Rate [Anterior Bilateral Throughout] Blood Pressure 162/108 100/57 O2 Sat by Pulse 91 91 Oximetry 01/20/18 01/20/18 13:25 13:37 Temperature Pulse Rate Pulse Rate [ 102 H 100 H Anterior Bilateral Throughout] Respiratory Rate Respiratory 20 20 Rate [Anterior Bilateral Throughout] Blood Pressure O2 Sat by Pulse Oximetry General appearance: Present: no acute distress, mild distress, well-nourished - EENT Eyes: PERRL, EOM intact ENT: hearing intact, clear oral mucosa Ears: bilateral: normal - Neck Neck: supple, normal ROM - Respiratory Respiratory effort: normal Respiratory: bilateral: CTA, rhonchi - Breasts Breasts: deferred - Cardiovascular Heart rate: 86 Rhythm: regular Heart Sounds: Present: S1 & S2. Absent: gallop, rub Extremities: no ischemia, pulses intact, No edema, normal color, Full ROM - Gastrointestinal General gastrointestinal: Present: soft, non-tender, non-distended, normal bowel sounds - Genitourinary Female genitourinary: normal - Integumentary Integumentary: clear, warm, dry - Musculoskeletal Musculoskeletal: 1, strength equal bilaterally - Neurologic Neurologic: moves all extremities - Psychiatric Psychiatric: memory intact, appropriate mood/affect, intact judgment & insight - Labs CBC & Chem 7: 01/19/18 04:09 01/19/18 04:09 Labs: Abnormal lab results 01/19/18 01/20/18 01/20/18 Range/Units 21:39 07:19 11:14 POC Glucose 232 H 230 H 242 H (70-105) 01/20/18 Range/Units 16:20 POC Glucose 150 H (70-105)
--- NOTE | 2018-01-20 17:30 | Progress Note ---
Assessment and Plan Critical care Statement: The high probability of a clinically significant, sudden or life threatening deterioration of the [Pulmonary, cadiac, renal] system(s) required my full and direct attention, intervention and personal management. The aggregate critical care time was [45] minutes. This time is in addition to time spent performing reported procedures but includes the following: [x] Data Review and interpretation [x] Patient assessment and monitoring of vital signs [x] Documentation [x] Medication orders and management - Patient Problems (1) Hypercapnic respiratory failure Current Visit: No Status: Acute Qualifiers: Chronicity: acute on chronic Qualified Code(s): J96.22 - Acute and chronic respiratory failure with hypercapnia Plan to address problem: Improved Off Bipap Doing well (2) COPD exacerbation Current Visit: Yes Status: Acute Plan to address problem: IV Solumedrol IV Levaquin and Duonebs Bipap (3) HTN (hypertension) Current Visit: Yes Status: Chronic Qualifiers: Hypertension type: essential hypertension Qualified Code(s): I10 - Essential (primary) hypertension Plan to address problem: Cont Antihypertensives (4) CHF (congestive heart failure) Current Visit: Yes Status: Chronic Qualifiers: Heart failure type: combined systolic and diastolic Plan to address problem: Cont Furosemide ARB'sand Beta pedro (5) GERD (gastroesophageal reflux disease) Current Visit: Yes Status: Acute Qualifiers: Esophagitis presence: without esophagitis Qualified Code(s): K21.9 - Gastro -esophageal reflux disease without esophagitis Plan to address problem: Cont PPI's (6) T2DM (type 2 diabetes mellitus) Current Visit: Yes Status: Chronic Qualifiers: Diabetes mellitus fdc insulin use: without fdc use Plan to address problem: Cont Oral Hypoglycemics and coverage (7) DVT prophylaxis Current Visit: Yes Status: Acute Plan to address problem: On lovenox and GI prophylaxis Subjective Date of service: 01/20/18 Principal diagnosis: Acute resp failure Interval history: Doing better Off Bipap Objective - Constitutional Vitals: Vital Signs - 12hr 01/20/18 01/20/18 01/20/18 06:00 09:00 09:30 Temperature 97.9 F Pulse Rate 79 Pulse Rate [ 100 H Anterior Bilateral Throughout] Respiratory 20 18 Rate Respiratory 18 Rate [Anterior Bilateral Throughout] Blood Pressure 149/89 O2 Sat by Pulse 88 Oximetry 01/20/18 01/20/18 01/20/18 09:37 10:12 11:43 Temperature Pulse Rate 95 H Pulse Rate [ 98 H Anterior Bilateral Throughout] Respiratory Rate Respiratory 18 Rate [Anterior Bilateral Throughout] Blood Pressure 127/62 O2 Sat by Pulse 94 Oximetry 01/20/18 01/20/18 01/20/18 12:02 12:04 12:06 Temperature 98.2 F 98.1 F 98.1 F Pulse Rate 68 85 Pulse Rate [ Anterior Bilateral Throughout] Respiratory 20 20 20 Rate Respiratory Rate [Anterior Bilateral Throughout] Blood Pressure 162/108 100/57 O2 Sat by Pulse 91 91 Oximetry 01/20/18 01/20/18 13:25 13:37 Temperature Pulse Rate Pulse Rate [ 102 H 100 H Anterior Bilateral Throughout] Respiratory Rate Respiratory 20 20 Rate [Anterior Bilateral Throughout] Blood Pressure O2 Sat by Pulse Oximetry General appearance: Present: no acute distress, well-nourished - EENT Eyes: PERRL, EOM intact ENT: hearing intact, clear oral mucosa Ears: bilateral: normal - Neck Neck: supple, normal ROM - Respiratory Respiratory effort: normal Respiratory: bilateral: CTA, rhonchi - Breasts Breasts: deferred - Cardiovascular Heart rate: 78 Rhythm: regular Heart Sounds: Present: S1 & S2. Absent: gallop, rub Extremities: pulses intact, No edema, normal color, Full ROM - Gastrointestinal General gastrointestinal: Present: soft, non-tender, non-distended, normal bowel sounds Rectal Exam: deferred - Genitourinary Female genitourinary: normal - Integumentary Integumentary: clear, warm, dry - Musculoskeletal Musculoskeletal: 1, strength equal bilaterally - Neurologic Neurologic: moves all extremities - Psychiatric Psychiatric: memory intact, appropriate mood/affect, intact judgment & insight - Labs CBC & Chem 7: 01/19/18 04:09 01/19/18 04:09 Labs: Abnormal lab results 01/19/18 01/20/18 01/20/18 Range/Units 21:39 07:19 11:14 POC Glucose 232 H 230 H 242 H (70-105) 01/20/18 Range/Units 16:20 POC Glucose 150 H (70-105)
[2018-01-20] MEDS: DESYREL PO SCH (21:35)
[2018-01-21] MEDS: ATIVAN PO SCH ×6 (01:42→22:43)
[2018-01-21] MEDS: HEPARIN SUB-Q SCH ×3 (05:38→22:36)
[2018-01-21] MEDS: SOLU-Medrol IV SCH ×3 (05:39→22:34)
[2018-01-21] MEDS: MORPHINE IV PRN ×3 (05:43→20:44)
[2018-01-21] MEDS: DUONEB *Not for PRN Use IH SCH ×4 (08:32→19:32)
[2018-01-21] MEDS: GLUCOPHAGE PO SCH ×2 (08:37→18:36)
[2018-01-21] MEDS: HumaLOG SUB-Q SCH ×4 (08:38→22:35)
--- NOTE | 2018-01-21 09:04 | Progress Note ---
Assessment and Plan Acute on chronic respiratory failure with hypercapnia and hypoxia Acute COPD exacerbation HTN SIRS Chronic systolic CHF , EF 20-25% GERD Mild hyperkalemia, Undifferentiated Schizophrenia Diabetes type II Morbid obesity - Continue with BIPAP support qhs (prn daytime use) - continue supplemental oxygen to keep sats > 90% - continue VTE prophylaxis - complete empiric AB's (Levaquin) - continue Cardio-protective measures - continue to monitor electrolytes - continue systemic steroid taper (tapered to p.o. steroids) - continue accucheck with glycemic control per SSI - PT/OT as tolerated - continue other care per attending / other consultants ... re-evaluate in am & prn .....d/c planning for next 24 hours if no decompensation Subjective Date of service: 01/21/18 Principal diagnosis: Acute on Ch. hypercapnic hypoxemic respiratory failure; AE COPD; Obesity Interval history: Patient is seen today for: Acute on Ch. hypercapnic hypoxemic respiratory failure; AE COPD; Obesity Seen and examined at bedside; 24hour events reviewed; nursing and respiratory care staff consulted; no adverse overnight events reported to me; resting peacefully in bed; feels better; she is still on 3.5 L NC and has a home baseline of 2L/min flow; No N/V/F/C; no chest pains or palpitations Objective Vital Signs - 12hr 01/20/18 01/20/18 01/21/18 21:08 23:30 00:01 Temperature 97.3 F L Pulse Rate 72 74 Pulse Rate [ 92 H Anterior Bilateral Throughout] Respiratory 20 20 Rate Respiratory 20 Rate [Anterior Bilateral Throughout] Blood Pressure 158/97 O2 Sat by Pulse 94 97 Oximetry 01/21/18 04:38 Temperature 97.6 F Pulse Rate 83 Pulse Rate [ Anterior Bilateral Throughout] Respiratory 18 Rate Respiratory Rate [Anterior Bilateral Throughout] Blood Pressure 141/99 O2 Sat by Pulse 85 Oximetry Constitutional: no acute distress, alert, other (obese middle aged AAF, normocephalic and atraumatic) Eyes: non-icteric ENT: oropharynx moist, other (Mallampati 3) Neck: supple, no lymphadenopathy, no JVD, other (no thyromegaly; large neck circumference) Effort: mildly labored Ascultation: Bilateral: diminished breath sounds, rhonchi Percussion: Bilateral: not dull Cardiovascular: regular rate and rhythm, other (No R/M) Gastrointestinal: normoactive bowel sounds, soft, non-tender, non-distended, other (No HSM) Integumentary: normal Extremities: no cyanosis, no edema, pulses normal, no ischemia or petechiae Neurologic: normal mental status, non-focal exam (grossly), pupils equal and round, CN II-XII normal Psychiatric: mood appropriate, affect normal CBC and BMP: 01/19/18 04:09 01/19/18 04:09 ABG, PT/INR, D-dimer: ABG POC ABG pH 7.431 (7.35-7.45) 01/19/18 06:30 POC ABG pCO2 50.9 (35-45) H 01/19/18 06:30 POC ABG pO2 91 (80-105) 01/19/18 06:30 POC ABG HCO3 33.9 01/19/18 06:30 POC ABG Total CO2 35 01/19/18 06:30 POC ABG O2 Sat 97 01/19/18 06:30 Abnormal lab findings: Abnormal Labs 01/18/18 01/18/18 01/18/18 09:53 09:53 10:16 Lymph % (Auto) 37.7 H [place] % (Auto) 11.5 H Lymph # Seg Neutrophils % POC ABG pH 7.303 L POC ABG pCO2 70.1 H POC ABG pO2 68 L Sodium 136 L Potassium Carbon Dioxide BUN Glucose 105 H POC Glucose Hemoglobin A1c 01/18/18 01/18/18 01/18/18 14:12 16:18 17:00 Lymph % (Auto) [place] % (Auto) Lymph # Seg Neutrophils % POC ABG pH 7.247 L 7.285 L POC ABG pCO2 74.3 H 68.6 H POC ABG pO2 Sodium Potassium Carbon Dioxide BUN Glucose POC Glucose Hemoglobin A1c 7.9 H 01/18/18 01/18/18 01/19/18 17:28 21:46 04:09 Lymph % (Auto) [place] % (Auto) Lymph # 1.0 L Seg Neutrophils % 83.1 H POC ABG pH POC ABG pCO2 POC ABG pO2 Sodium Potassium Carbon Dioxide BUN Glucose POC Glucose 153 H 236 H Hemoglobin A1c 01/19/18 01/19/18 01/19/18 04:09 06:30 07:59 Lymph % (Auto) [place] % (Auto) Lymph # Seg Neutrophils % POC ABG pH POC ABG pCO2 50.9 H POC ABG pO2 Sodium Potassium 5.7 H D Carbon Dioxide 31 H BUN 23 H Glucose 169 H POC Glucose 186 H Hemoglobin A1c 01/19/18 01/19/18 01/19/18 11:54 16:05 21:39 Lymph % (Auto) [place] % (Auto) Lymph # Seg Neutrophils % POC ABG pH POC ABG pCO2 POC ABG pO2 Sodium Potassium Carbon Dioxide BUN Glucose POC Glucose 253 H 131 H 232 H Hemoglobin A1c 01/20/18 01/20/18 01/20/18 07:19 11:14 16:20 Lymph % (Auto) [place] % (Auto) Lymph # Seg Neutrophils % POC ABG pH POC ABG pCO2 POC ABG pO2 Sodium Potassium Carbon Dioxide BUN Glucose POC Glucose 230 H 242 H 150 H Hemoglobin A1c 01/20/18 01/21/18 20:50 07:52 Lymph % (Auto) [place] % (Auto) Lymph # Seg Neutrophils % POC ABG pH POC ABG pCO2 POC ABG pO2 Sodium Potassium Carbon Dioxide BUN Glucose POC Glucose 279 H 321 H Hemoglobin A1c Chest x-ray: image reviewed (chronic RLL scaring)
--- NOTE | 2018-01-21 10:11 | Progress Note ---
Assessment and Plan Assessment and plan: Acute hypoxemic hypercapnic respiratory failure. Continue O2 and BiPAP as clinically indicated. Acute COPD exacerbation. Continue IV Solu-Medrol, IV antibiotics and DuoNeb's. Taper steroids. Hypertension. Continue antibiotics his medications. Chronic CHF. Continue Lasix, ARB and beta pedro. Diabetes mellitus type 2. Continue oral hypoglycemics, Accu-Cheks and sliding scale insulin as needed. DVT prophylaxis. Continue Lovenox Disposition. Likely discharge in a.m. History Interval history: Doing better but still SOB with exertion on 3L here with 2 L at home Hospitalist Physical - Constitutional Vitals: Temp Pulse Resp BP Pulse Ox 97.6 F 83 18 141/99 85 01/21/18 04:38 01/21/18 04:38 01/21/18 04:38 01/21/18 04:38 01/21/18 04:38 General appearance: Present: no acute distress, well-nourished - EENT Eyes: Present: PERRL, EOM intact ENT: hearing intact, clear oral mucosa, dentition normal - Neck Neck: Present: supple, normal ROM - Respiratory Respiratory effort: normal Respiratory: bilateral: diminished, wheezing - Cardiovascular Rhythm: regular Heart Sounds: Present: S1 & S2. Absent: gallop, rub - Extremities Extremities: no ischemia, No edema, Full ROM - Abdominal General gastrointestinal: soft, non-tender, non-distended, normal bowel sounds - Integumentary Integumentary: Present: clear, warm, dry - Neurologic Neurologic: CNII-XII intact, moves all extremities Results - Labs CBC & Chem 7: 01/19/18 04:09 01/19/18 04:09 Labs: Laboratory Last Values WBC 6.8 K/mm3 (4.5-11.0) 01/19/18 04:09 RBC 4.35 M/mm3 (3.65-5.03) 01/19/18 04:09 Hgb 13.0 gm/dl (10.1-14.3) 01/19/18 04:09 Hct 41.4 % (30.3-42.9) 01/19/18 04:09 MCV 95 fl (79-97) 01/19/18 04:09 MCH 30 pg (28-32) 01/19/18 04:09 MCHC 32 % (30-34) 01/19/18 04:09 RDW 15.0 % (13.2-15.2) 01/19/18 04:09 Plt Count 252 K/mm3 (140-440) 01/19/18 04:09 Lymph % (Auto) 14.8 % (13.4-35.0) 01/19/18 04:09 [place] % (Auto) 1.8 % (0.0-7.3) 01/19/18 04:09 Eos % (Auto) 0.0 % (0.0-4.3) 01/19/18 04:09 Baso % (Auto) 0.3 % (0.0-1.8) 01/19/18 04:09 Lymph # 1.0 K/mm3 (1.2-5.4) L 01/19/18 04:09 [place] # 0.1 K/mm3 (0.0-0.8) 01/19/18 04:09 Eos # 0.0 K/mm3 (0.0-0.4) 01/19/18 04:09 Baso # 0.0 K/mm3 (0.0-0.1) 01/19/18 04:09 Seg Neutrophils % 83.1 % (40.0-70.0) H 01/19/18 04:09 Seg Neutrophils # 5.7 K/mm3 (1.8-7.7) 01/19/18 04:09 POC ABG pH 7.431 (7.35-7.45) 01/19/18 06:30 POC ABG pCO2 50.9 (35-45) H 01/19/18 06:30 POC ABG pO2 91 (80-105) 01/19/18 06:30 POC ABG HCO3 33.9 01/19/18 06:30 POC ABG Total CO2 35 01/19/18 06:30 POC ABG O2 Sat 97 01/19/18 06:30 POC ABG Base Excess 10 01/19/18 06:30 FiO2 5 % 01/19/18 06:30 Sodium 138 mmol/L (137-145) 01/19/18 04:09 Potassium 5.7 mmol/L (3.6-5.0) H D 01/19/18 04:09 Chloride 98.8 mmol/L (98-107) 01/19/18 04:09 Carbon Dioxide 31 mmol/L (22-30) H 01/19/18 04:09 Anion Gap 14 mmol/L 01/19/18 04:09 BUN 23 mg/dL (7-17) H 01/19/18 04:09 Creatinine 0.8 mg/dL (0.7-1.2) 01/19/18 04:09 Estimated GFR > 60 ml/min 01/19/18 04:09 BUN/Creatinine Ratio 29 % 01/19/18 04:09 Glucose 169 mg/dL (65-100) H 01/19/18 04:09 POC Glucose 321 (70-105) H 01/21/18 07:52 Hemoglobin A1c 7.9 % (4-6) H 01/18/18 16:18 Calcium 9.3 mg/dL (8.4-10.2) 01/19/18 04:09 Total Bilirubin < 0.20 mg/dL (0.1-1.2) 01/19/18 04:09 AST 11 units/L (5-40) 01/19/18 04:09 ALT 12 units/L (7-56) 01/19/18 04:09 Alkaline Phosphatase 90 units/L (35-129) 01/19/18 04:09 NT-Pro-B Natriuret Pep 100.8 pg/mL (0-450) 01/18/18 10:05 Total Protein 7.1 g/dL (6.3-8.2) 01/19/18 04:09 Albumin 4.2 g/dL (3.9-5) 01/19/18 04:09 Albumin/Globulin Ratio 1.4 % 01/19/18 04:09
[2018-01-21] MEDS: PEPCID PO SCH ×2 (11:44→22:33)
[2018-01-21] MEDS: MIRALAX 3350 PO SCH (11:44)
[2018-01-21] MEDS: ASPIRIN PO SCH (11:45)
[2018-01-21] MEDS: COZAAR PO SCH (11:46)
[2018-01-21] MEDS: CLARITIN PO SCH (11:46)
[2018-01-21] MEDS: LASIX PO SCH (11:46)
[2018-01-21] MEDS: COREG PO SCH ×2 (11:47→22:33)
[2018-01-21] MEDS: DOLOPHINE PO SCH ×2 (11:47→22:33)
[2018-01-21] MEDS: celeXA PO SCH (11:47)
[2018-01-21] MEDS: COLACE PO SCH ×2 (11:48→22:34)
[2018-01-21] MEDS: FLONASE NS SCH ×2 (11:52→22:36)
[2018-01-21] MEDS: LEVAQUIN 750MG/150ML 750 MG/150 ML BAG IV SCH (11:54)
[2018-01-21] MEDS: CITRATE OF MAGNESIA PO SCH (11:58)
[2018-01-21] MEDS: SODIUM CHLORIDE FLUSH SYRINGE 10 ML IV SCH ×2 (12:05→22:35)
[2018-01-21] MEDS: DESYREL PO SCH (22:34)
[2018-01-22] MEDS: ATIVAN PO SCH ×4 (01:52→13:54)
[2018-01-22] MEDS: HEPARIN SUB-Q SCH (06:00)
[2018-01-22] MEDS: SOLU-Medrol IV SCH (06:00)
[2018-01-22] MEDS: MORPHINE IV PRN (06:40)
[2018-01-22] MEDS: DUONEB *Not for PRN Use IH SCH ×2 (08:31→13:02)
--- NOTE | 2018-01-22 08:41 | Progress Note ---
Assessment and Plan Patient sleepy but easily arousable. Resting on 3 litres O2.O2 saturation 93% .Patient says she has home O2. Recommend sleep study as out patient. - Patient Problems (1) COPD exacerbation Current Visit: Yes Status: Acute Plan to address problem: O2 3 litres via nasal canula. Albuterol/atrovent aerosol treatments q 6 hours. Continue I/V solumedral. Continue S/C Heparin Continue Famotidine. Continue Levaquin. (2) GERD (gastroesophageal reflux disease) Current Visit: Yes Status: Acute Qualifiers: Esophagitis presence: without esophagitis Qualified Code(s): K21.9 - Gastro -esophageal reflux disease without esophagitis Plan to address problem: Patient is on famotidine. (3) CHF (congestive heart failure) Current Visit: Yes Status: Chronic Qualifiers: Heart failure type: combined systolic and diastolic (4) HTN (hypertension) Current Visit: Yes Status: Chronic Qualifiers: Hypertension type: essential hypertension Qualified Code(s): I10 - Essential (primary) hypertension Plan to address problem: Management as per primary care. (5) T2DM (type 2 diabetes mellitus) Current Visit: Yes Status: Chronic Qualifiers: Diabetes mellitus filler leaf cutter long insulin use: without filler leaf cutter long use Plan to address problem: Managent as per primary care. (6) Hypercapnic respiratory failure Current Visit: No Status: Acute Qualifiers: Chronicity: acute on chronic Qualified Code(s): J96.22 - Acute and chronic respiratory failure with hypercapnia Plan to address problem: O2 3 litres via nasal canula. BIPAP Albuterol/atrovent aerosol treatments q 6 hours. Continue I/V solumedral. Continue S/C Heparin Continue Famotidine. Continue Levaqui (7) Morbid obesity with BMI of 45.0-49.9, adult Current Visit: Yes Status: Acute Plan to address problem: Weight reduction diet. (8) Obesity hypoventilation syndrome Current Visit: Yes Status: Acute Plan to address problem: Recommend sleep study as out patient. (9) Sleep apnea syndrome Current Visit: Yes Status: Acute Plan to address problem: Recommend sleep study as out patient. Subjective Date of service: 01/22/18 Principal diagnosis: Acute on Ch. hypercapnic hypoxemic respiratory failure; AE COPD; Obesity Interval history: Patient sleepy but easily arousable. Resting on 3 litres O2.O2 saturation 93% .Patient says she has home O2. Recommend sleep study as out patient. Objective Vital Signs - 12hr 01/21/18 01/21/18 01/21/18 20:44 21:14 22:00 Temperature Pulse Rate Respiratory 22 19 20 Rate Blood Pressure O2 Sat by Pulse 92 Oximetry 01/21/18 01/21/18 01/21/18 22:33 23:24 23:33 Temperature 98.1 F Pulse Rate 90 85 Respiratory 21 18 19 Rate Blood Pressure 155/90 155/93 O2 Sat by Pulse 90 Oximetry 01/21/18 01/22/18 01/22/18 23:45 04:26 06:40 Temperature 97.6 F Pulse Rate 77 69 Respiratory 18 18 19 Rate Blood Pressure 146/102 O2 Sat by Pulse 98 93 Oximetry 01/22/18 07:10 Temperature Pulse Rate Respiratory 18 Rate Blood Pressure O2 Sat by Pulse Oximetry Constitutional: no acute distress, alert, other (obese middle aged AAF, normocephalic and atraumatic) Eyes: non-icteric ENT: oropharynx moist, other (Mallampati 3) Neck: supple, no lymphadenopathy, no JVD, other (no thyromegaly; large neck circumference) Effort: mildly labored Ascultation: Bilateral: diminished breath sounds, rhonchi Percussion: Bilateral: not dull Cardiovascular: regular rate and rhythm, other (No R/M) Gastrointestinal: normoactive bowel sounds, soft, non-tender, non-distended, other (No HSM) Integumentary: normal Extremities: no cyanosis, no edema, pulses normal, no ischemia or petechiae Neurologic: normal mental status, non-focal exam (grossly), pupils equal and round, CN II-XII normal Psychiatric: mood appropriate, affect normal CBC and BMP: 01/19/18 04:09 01/19/18 04:09 ABG, PT/INR, D-dimer: ABG POC ABG pH 7.431 (7.35-7.45) 01/19/18 06:30 POC ABG pCO2 50.9 (35-45) H 01/19/18 06:30 POC ABG pO2 91 (80-105) 01/19/18 06:30 POC ABG HCO3 33.9 01/19/18 06:30 POC ABG Total CO2 35 01/19/18 06:30 POC ABG O2 Sat 97 01/19/18 06:30 Abnormal lab findings: Abnormal Labs 01/18/18 01/18/18 01/18/18 09:53 09:53 10:16 Lymph % (Auto) 37.7 H [place] % (Auto) 11.5 H Lymph # Seg Neutrophils % POC ABG pH 7.303 L POC ABG pCO2 70.1 H POC ABG pO2 68 L Sodium 136 L Potassium Carbon Dioxide BUN Glucose 105 H POC Glucose Hemoglobin A1c 01/18/18 01/18/18 01/18/18 14:12 16:18 17:00 Lymph % (Auto) [place] % (Auto) Lymph # Seg Neutrophils % POC ABG pH 7.247 L 7.285 L POC ABG pCO2 74.3 H 68.6 H POC ABG pO2 Sodium Potassium Carbon Dioxide BUN Glucose POC Glucose Hemoglobin A1c 7.9 H 01/18/18 01/18/18 01/19/18 17:28 21:46 04:09 Lymph % (Auto) [place] % (Auto) Lymph # 1.0 L Seg Neutrophils % 83.1 H POC ABG pH POC ABG pCO2 POC ABG pO2 Sodium Potassium Carbon Dioxide BUN Glucose POC Glucose 153 H 236 H Hemoglobin A1c 01/19/18 01/19/18 01/19/18 04:09 06:30 07:59 Lymph % (Auto) [place] % (Auto) Lymph # Seg Neutrophils % POC ABG pH POC ABG pCO2 50.9 H POC ABG pO2 Sodium Potassium 5.7 H D Carbon Dioxide 31 H BUN 23 H Glucose 169 H POC Glucose 186 H Hemoglobin A1c 01/19/18 01/19/18 01/19/18 11:54 16:05 21:39 Lymph % (Auto) [place] % (Auto) Lymph # Seg Neutrophils % POC ABG pH POC ABG pCO2 POC ABG pO2 Sodium Potassium Carbon Dioxide BUN Glucose POC Glucose 253 H 131 H 232 H Hemoglobin A1c 01/20/18 01/20/18 01/20/18 07:19 11:14 16:20 Lymph % (Auto) [place] % (Auto) Lymph # Seg Neutrophils % POC ABG pH POC ABG pCO2 POC ABG pO2 Sodium Potassium Carbon Dioxide BUN Glucose POC Glucose 230 H 242 H 150 H Hemoglobin A1c 01/20/18 01/21/18 01/21/18 20:50 07:52 11:46 Lymph % (Auto) [place] % (Auto) Lymph # Seg Neutrophils % POC ABG pH POC ABG pCO2 POC ABG pO2 Sodium Potassium Carbon Dioxide BUN Glucose POC Glucose 279 H 321 H 306 H Hemoglobin A1c 01/21/18 01/21/18 01/22/18 17:03 21:59 07:29 Lymph % (Auto) [place] % (Auto) Lymph # Seg Neutrophils % POC ABG pH POC ABG pCO2 POC ABG pO2 Sodium Potassium Carbon Dioxide BUN Glucose POC Glucose 203 H 289 H 253 H Hemoglobin A1c Chest x-ray: report reviewed (Borderline hear size, perihilar scarring.), image reviewed
--- NOTE | 2018-01-22 08:42 | Discharge Summary ---
Providers - Providers Date of Admission: 01/18/18 12:11 Date of discharge: 01/22/18 Attending physician: CRISTELA RUFFIN 01/18/18 15:31 Consult to Physician [CONS] Routine Comment: Consulting Provider: MILEY GALLEGOS Physician Instructions: Reason For Exam: Resp failure Primary care physician: ARTIST CONSULTANT Hospitalization Reason for admission: COPD exac Condition: Stable Hospital course: 47 yo old female with a past medical history CHF, COPD (2 L oxygen dependent), diabetes, and hypertension presents to the hospital complaints of wheezing, shortness of breath, and hypoxia. Patient presented from [facility] with reported O2 saturation of 74% on room air. Patient apparently was recently discharged from [facility] with a diagnosis of pneumonia. The patient was admitted to our facility with acute on chronic respiratory failure with hypercapnia and hypoxia secondary to acute COPD exacerbation. Patient was treated appropriately with initially BiPAP support, supplemental oxygen, bronchodilators, empiric antibiotics and systemic steroids. The patient has slow but significant improvement throughout hospitalization. The patient returned to her respiratory baseline status of requiring 2 L of oxygen. Patient was felt to have received maximal hospital benefit and will be discharged home. Dedicated discharge time 32 minutes. Disposition: [id number] Time spent for discharge: 32 - Discharge Diagnoses (1) CO2 retention Status: Acute (2) COPD exacerbation Status: Acute (3) Hypoxia Status: Acute (4) O2 dependent Status: Acute (5) HTN (hypertension) Status: Chronic Qualifiers: Hypertension type: essential hypertension Qualified Code(s): I10 - Essential (primary) hypertension (6) T2DM (type 2 diabetes mellitus) Status: Chronic Qualifiers: Diabetes mellitus manager terminal insulin use: without alf use (7) Hypercapnic respiratory failure Status: Acute Qualifiers: Chronicity: acute on chronic Qualified Code(s): J96.22 - Acute and chronic respiratory failure with hypercapnia (8) Respiratory failure Status: Acute Core Measure Documentation - Palliative Care Palliative Care/ Comfort Measures: Not Applicable - Core Measures Any of the following diagnoses?: none Exam - Constitutional Vitals: Temp Pulse Resp BP Pulse Ox 97.6 F 69 18 146/102 93 01/22/18 04:26 01/22/18 04:26 01/22/18 07:10 01/22/18 04:26 01/22/18 04:26 General appearance: Present: no acute distress, obese - EENT Eyes: Present: PERRL ENT: hearing intact, clear oral mucosa - Neck Neck: Present: supple, normal ROM - Respiratory Respiratory effort: normal Respiratory: bilateral: CTA - Cardiovascular Heart Sounds: Present: S1 & S2. Absent: rub, click - Extremities Extremities: pulses symmetrical, No edema Peripheral Pulses: within normal limits - Abdominal General gastrointestinal: Present: soft, non-tender, non-distended, normal bowel sounds Female genitourinary: Present: normal - Integumentary Integumentary: Present: clear, warm, dry - Musculoskeletal Musculoskeletal: gait normal, strength equal bilaterally - Psychiatric Psychiatric: appropriate mood/affect, intact judgment & insight - Neurologic Neurologic: CNII-XII intact, moves all extremities Plan Activity: advance as tolerated Weight Bearing Status: Weight Bear as Tolerated Diet: low fat Follow up with: PRIMARY CARE, [Primary Care Provider] - 3-5 Days MILEY GALLEGOS MD [Staff Physician] - 7 Days Prescriptions: levoFLOXacin [Levaquin] 750 mg PO QDAY #7 tablet Prednisone [predniSONE 10 mg (6-Day Pack, 21 Tabs)] 10 mg PO .TAPER #1 tab.ds.pk
[2018-01-22] MEDS: HumaLOG SUB-Q SCH ×2 (09:03→13:55)
[2018-01-22] MEDS ORDERED: LEVAQUIN PO SCH (10:00)
[2018-01-22] MEDS: COZAAR PO SCH (11:11)
[2018-01-22] MEDS: PEPCID PO SCH (11:11)
[2018-01-22] MEDS: COLACE PO SCH (11:11)
[2018-01-22] MEDS: celeXA PO SCH (11:12)
[2018-01-22] MEDS: MIRALAX 3350 PO SCH (11:13)
[2018-01-22] MEDS: ASPIRIN PO SCH (11:13)
[2018-01-22] MEDS: DOLOPHINE PO SCH (11:13)
[2018-01-22] MEDS: CITRATE OF MAGNESIA PO SCH (11:13)
[2018-01-22] MEDS: CLARITIN PO SCH (11:14)
[2018-01-22] MEDS: COREG PO SCH (11:14)
[2018-01-22] MEDS: GLUCOPHAGE PO SCH (11:26)
[2018-01-22] MEDS: FLONASE NS SCH (11:31)
[2018-01-22] MEDS: LASIX PO SCH (11:31)
[2018-01-22] MEDS: SODIUM CHLORIDE FLUSH SYRINGE 10 ML IV SCH (11:33)
[2018-01-22] MEDS ORDERED: CATAPRES PO ONE (13:59)
[2018-01-22 15:06] VITALS: BP 170/90
== END 2018-01-22 13:00 | DRG 189 ==
LOC: ED 09:27 → 3A 12:11 → CC1 19:07 → 3A 01-19 14:36
PROVIDERS: ADMIT Internal Medicine; ATTEND Hospitalist
PROC: 5A09457 Assistance with Respiratory Ventilation, 24-96 Consecutive Hours, Continuous Positive Airway Pressure (ICD-10-PCS; principal; 2018-01-18)
PROC: 5A09357 Assistance with Respiratory Ventilation, Less than 24 Consecutive Hours, Continuous Positive Airway Pressure (ICD-10-PCS; 2018-01-18)
PROC: 4A033R1 Measurement of Arterial Saturation, Peripheral, Percutaneous Approach (ICD-10-PCS; 2018-01-18)
DX: J96.01 Acute respiratory failure with hypoxia (principal); E87.2 Acidosis; J44.1 Chronic obstructive pulmonary disease with (acute) exacerbation; I50.42 Chronic combined systolic (congestive) and diastolic (congestive) heart failure; Z68.42 Body mass index [BMI] 45.0-49.9, adult; E66.2 Morbid (severe) obesity with alveolar hypoventilation; R65.10 Systemic inflammatory response syndrome (SIRS) of non-infectious origin without acute organ dysfunction; J96.22 Acute and chronic respiratory failure with hypercapnia; I11.0 Hypertensive heart disease with heart failure; K21.9 Gastro-esophageal reflux disease without esophagitis; E11.9 Type 2 diabetes mellitus without complications; E87.5 Hyperkalemia; F20.3 Undifferentiated schizophrenia; Z88.0 Allergy status to penicillin; Z99.81 Dependence on supplemental oxygen; Z87.01 Personal history of pneumonia (recurrent); Z88.2 Allergy status to sulfonamides; Z79.82 Long term (current) use of aspirin; Z79.899 Other long term (current) drug therapy; Z90.710 Acquired absence of both cervix and uterus
CPT/HCPCS: 36415; 36600; 71045; 80048; 80053; 82803; 82962; 83036; 83880; 85025; 87040; 93005; 93010; 94640; 94660; 94760; 96365; 96367; 96375; J1644; J1815; J1956; J2270; J2920; J2930; J3475

== ENCOUNTER 2018-04-26 11:04 | Inpatient (IN) | payer MEDICARE ==
[2018-04-26] MEDS ORDERED: NACL 0.9% 500 ML 500 ML IV ONE ×2 (11:12→11:13)
[2018-04-26] MEDS ORDERED: PROVENTIL IH ONE (11:27)
[2018-04-26] MEDS ORDERED: SOLU-Medrol IV ONE (11:27)
[2018-04-26] MEDS ORDERED: ATROVENT IH ONE (11:27)
[2018-04-26] MEDS ORDERED: LASIX IV ONE (11:27)
--- NOTE | 2018-04-26 11:29 | Emergency Department Report ---
ED General Adult HPI - General Chief complaint: Dyspnea/Respdistress Stated complaint: ROBERTO Time Seen by Provider: 04/26/18 11:09 Source: patient, EMS (ems notes not available at time of chart dictation), RN notes reviewed, old records reviewed Mode of arrival: Wheelchair Limitations: Altered Mental Status, Physical Limitation - History of Present Illness Initial comments: This is a 47-year-old female. The patient has a history of respiratory failure, COPD, obesity, reported dilated nonischemic cardiomyopathy, with a reported documented left heart catheterization at [facility] in 2013 ( ? in [place]), which demonstrated an ejection fraction of 45% subsequently had echocardiogram in 2018 which demonstrated an ejection fraction of 20-25%, with chronically elevated troponin The patient has been admitted to this hospital in the past for multifactorial respiratory failure. She was admitted in March for respiratory failure. Patient was seen by cardiology, who recommended fluid and sodium restriction, continue medical therapy for chronic systolic heart failure, and conservative cardiac management. The patient is sent to the ER by her local assisted for weakness, malaise, shortness of breath and altered mental status. Unknown how long the symptoms have been going on for. The patient is not able to describe exacerbating or relieving factors. The patient is sleepy but arousable, and when she is woken up, she denies pain. Her primary care doctors are Dr. Hansen, and Dr. Washington, and her documented power of securities attorney is Genesisyumiko bledsoe; [phone]. In addition, the patient apparently has a DO NOT RESUSCITATE, DO NOT INTUBATE, which the assisted has faxed over. -: unknown Quality: other Consistency: other Improves with: other Worsens with: other Associated Symptoms: confusion, other - Related Data Home Medications Medication Instructions Recorded Confirmed Last Taken Docusate Sodium [Colace CAP] 100 mg PO BID 08/22/17 04/26/18 Unknown Fluticasone [Flonase] 1 spray NS BID 08/22/17 04/26/18 Unknown Loratadine [Claritin] 10 mg PO DAILY 08/22/17 04/26/18 Unknown AtorvaSTATin [Lipitor] 40 mg PO QHS 02/02/18 04/26/18 Unknown Budesonide [Pulmicort] 0.5 mg IH BID 02/02/18 04/26/18 Unknown Famotidine [Pepcid] 20 mg PO DAILY 02/02/18 04/26/18 Unknown Montelukast [Singulair] 10 mg PO QHS 02/02/18 04/26/18 Unknown Sennosides [Senna] 17.2 mg PO QHS 02/02/18 04/26/18 Unknown Sorbitol 70% 30 ml PO BID 02/02/18 04/26/18 Unknown Spironolactone [Aldactone] 12.5 mg PO DAILY 02/02/18 04/26/18 Unknown Hydralazine HCl 37.5 mg PO Q8H 03/28/18 04/26/18 Unknown Isosorbide Dinitrate [Isordil 20 mg PO Q8H 03/28/18 04/26/18 Unknown Titradose] Losartan [Cozaar] 100 mg PO QDAY 03/28/18 04/26/18 Unknown Metformin HCl [Glucophage] 1,000 mg PO BID 03/28/18 04/26/18 Unknown ALBUTEROL NEB's [Proventil 0.083% 2.5 mg IH Q4HR PRN 04/26/18 04/26/18 Unknown NEBS] Acetaminophen [Tylenol] 650 mg PO Q6HR PRN 04/26/18 04/26/18 Unknown Aspirin EC [Ecotrin] 325 mg PO QDAY 04/26/18 04/26/18 Unknown Insulin Regular, Human [HumuLIN R] See Protocol SUB-Q AC 04/26/18 04/26/18 Unknown Ipratropium/Albuterol Sulfate 1 ampul IH TID 04/26/18 04/26/18 Unknown [DUONEB *Not for PRN Use*] Polyethylene Glycol 3350 [Miralax 17 gm PO QDAY PRN 04/26/18 04/26/18 Unknown 3350] Potassium Chloride 20 meq PO QDAY 04/26/18 04/26/18 Unknown oxyCODONE /ACETAMINOPHEN [Percocet 1 tab PO DAILY PRN 04/26/18 04/26/18 Unknown 5/325] Previous Rx's Medication Instructions Recorded Last Taken Type Carvedilol [Coreg] 3.125 mg PO BID #60 tablet 09/02/17 Unknown Rx QUEtiapine [SEROquel] 200 mg PO QHS tablet 01/22/18 Unknown Rx traZODone [Desyrel] 50 mg PO QHS tablet 01/22/18 Unknown Rx Furosemide [Lasix TAB] 40 mg PO DAILY@0600 #30 tablet 02/05/18 Unknown Rx LORazepam [Ativan] 1 mg PO Q6H #7 tablet 02/05/18 Unknown Rx Methadone [Dolophine] 5 mg PO BID #7 tablet 02/05/18 Unknown Rx Allergies Allergy/AdvReac Type Severity Reaction Status Date / Time Penicillins Allergy Unknown Verified 03/28/18 09:27 Sulfa (Sulfonamide Allergy Unknown Verified 03/28/18 09:27 Antibiotics) sulfabenzamide Allergy Unknown Verified 03/28/18 09:27 ED Review of Systems ROS: Stated complaint: ROBERTO Other details as noted in HPI Comment: Unobtainable due to pts medical conditions ED Past Medical Hx - Past Medical History Previous Medical History?: Yes Hx Hypertension: Yes Hx Heart Attack/AMI: No Hx Congestive Heart Failure: Yes Hx Diabetes: Yes Hx Deep Vein Thrombosis: No Hx Psychiatric Treatment: Yes (hx of schizophrenia, major depressive disorder) Hx Asthma: Yes Hx COPD: Yes Additional medical history: Dysphasia. obstructive sleep apnea - Surgical History Past Surgical History?: Yes Hx Pacemaker: No Hx Internal Defibrillator: No Additional Surgical History: Partial hysterectomy. Tracheostomy - Social History Smoking Status: Unknown if ever smoked Substance Use Type: None - Medications Home Medications: Home Medications Medication Instructions Recorded Confirmed Last Taken Type Docusate Sodium [Colace CAP] 100 mg PO BID 08/22/17 04/26/18 Unknown History Fluticasone [Flonase] 1 spray NS BID 08/22/17 04/26/18 Unknown History Loratadine [Claritin] 10 mg PO DAILY 08/22/17 04/26/18 Unknown History Carvedilol [Coreg] 3.125 mg PO BID #60 tablet 09/02/17 04/26/18 Unknown Rx QUEtiapine [SEROquel] 200 mg PO QHS tablet 01/22/18 04/26/18 Unknown Rx traZODone [Desyrel] 50 mg PO QHS tablet 01/22/18 04/26/18 Unknown Rx AtorvaSTATin [Lipitor] 40 mg PO QHS 02/02/18 04/26/18 Unknown History Budesonide [Pulmicort] 0.5 mg IH BID 02/02/18 04/26/18 Unknown History Famotidine [Pepcid] 20 mg PO DAILY 02/02/18 04/26/18 Unknown History Montelukast [Singulair] 10 mg PO QHS 02/02/18 04/26/18 Unknown History Sennosides [Senna] 17.2 mg PO QHS 02/02/18 04/26/18 Unknown History Sorbitol 70% 30 ml PO BID 02/02/18 04/26/18 Unknown History Spironolactone [Aldactone] 12.5 mg PO DAILY 02/02/18 04/26/18 Unknown History Furosemide [Lasix TAB] 40 mg PO DAILY@0600 #30 tablet 02/05/18 04/26/18 Unknown Rx LORazepam [Ativan] 1 mg PO Q6H #7 tablet 02/05/18 04/26/18 Unknown Rx Methadone [Dolophine] 5 mg PO BID #7 tablet 02/05/18 04/26/18 Unknown Rx Hydralazine HCl 37.5 mg PO Q8H 03/28/18 04/26/18 Unknown History Isosorbide Dinitrate [Isordil 20 mg PO Q8H 03/28/18 04/26/18 Unknown History Titradose] Losartan [Cozaar] 100 mg PO QDAY 03/28/18 04/26/18 Unknown History Metformin HCl [Glucophage] 1,000 mg PO BID 03/28/18 04/26/18 Unknown History ALBUTEROL NEB's [Proventil 0.083% 2.5 mg IH Q4HR PRN 04/26/18 04/26/18 Unknown History NEBS] Acetaminophen [Tylenol] 650 mg PO Q6HR PRN 04/26/18 04/26/18 Unknown History Aspirin EC [Ecotrin] 325 mg PO QDAY 04/26/18 04/26/18 Unknown History Insulin Regular, Human [HumuLIN R] See Protocol SUB-Q AC 04/26/18 04/26/18 Un known History Ipratropium/Albuterol Sulfate 1 ampul IH TID 04/26/18 04/26/18 Unknown History [DUONEB *Not for PRN Use*] Polyethylene Glycol 3350 [Miralax 17 gm PO QDAY PRN 04/26/18 04/26/18 Unknown History 3350] Potassium Chloride 20 meq PO QDAY 04/26/18 04/26/18 Unknown History oxyCODONE /ACETAMINOPHEN [Percocet 1 tab PO DAILY PRN 04/26/18 04/26/18 Unknown History 5/325] ED Physical Exam - General Limitations: Altered Mental Status, Physical Limitation General appearance: lethargic - Head Head exam: Present: atraumatic - Eye Eye exam: Present: EOMI - ENT ENT exam: Present: normal exam, normal orophraynx, normal external ear exam - Neck Neck exam: Present: normal inspection. Absent: tenderness, meningismus - Respiratory Respiratory exam: Present: respiratory distress, wheezes, rales, rhonchi - Cardiovascular Cardiovascular Exam: Present: normal rhythm, tachycardia, normal heart sounds - GI/Abdominal GI/Abdominal exam: Present: soft. Absent: distended, tenderness, guarding, rebound, rigid, normal bowel sounds, pulsatile mass - Extremities Exam Extremities exam: Present: normal inspection, pedal edema, other (Extraocular movements intact. Tongue midline. No facial droop. Facial sensation intact to light touch in the V1, V2, V3 distribution bilaterally. 5 and 5 strength in 4 extremities.. Sensation is intact to light touch in 4 extremities.). Absent: calf tenderness - Back Exam Back exam: Present: full ROM. Absent: tenderness, CVA tenderness (R), paraspinal tenderness, vertebral tenderness - Neurological Exam Neurological exam: Present: altered, other (sleepy, but arousable. When aroused, was 4 extremities spontaneously and to command, answers her name ap propriately, year appropriately, location appropriately, has no obvious facial droop, and sensation is intact to light touch in 4 extremities) - Psychiatric Psychiatric exam: Present: flat affect - Skin Skin exam: Present: warm, dry, intact ED Course Vital Signs 04/26/18 04/26/18 04/26/18 10:54 11:00 11:08 Temperature 99.4 F Pulse Rate 104 H 103 H Respiratory 28 H 26 H Rate Blood Pressure 153/87 148/85 O2 Sat by Pulse 93 95 97 Oximetry 04/26/18 04/26/18 04/26/18 11:17 11:30 12:00 Temperature Pulse Rate 103 H 108 H Respiratory 33 H 25 H Rate Blood Pressure 148/93 141/76 O2 Sat by Pulse 97 97 91 Oximetry 04/26/18 04/26/1819 12:05 12:30 13:00 Temperature 100.0 F H Pulse Rate 106 H 102 H Respiratory 32 H 27 H Rate Blood Pressure 141/118 O2 Sat by Pulse 90 94 Oximetry 04/26/18 04/26/18 04/26/18 13:30 14:00 14:30 Temperature Pulse Rate 100 H 98 H 96 H Respiratory 22 23 23 Rate Blood Pressure 153/95 140/87 O2 Sat by Pulse 98 99 100 Oximetry 04/26/18 04/26/18 04/26/18 15:00 15:30 16:00 Temperature Pulse Rate 98 H 104 H 110 H Respiratory 31 H 29 H 27 H Rate Blood Pressure 143/77 143/77 136/97 O2 Sat by Pulse 98 98 95 Oximetry - Reevaluation(s) Reevaluation #1: 04/26/18 12:18 Differential diagnosis, including not limited to: Congestive heart failure, COPD exacerbation, pulmonary hypertension, multifactorial acute on chronic respiratory failure, pneumonia, vasomotor nephropathy Assessment and plan: 47-year-old female with multiple medical and respiratory co morbidities, presenting with multifactorial respiratory failure, most likely combination of her underlying chronic medical conditions. Has a low-grade temperature, sleepy but arousable, has a nonfocal motor examination. We will start the patient on high flow, high humidity nasal cannula, provide albuterol, Atrovent, steroids and diuretics. Clinically doubt pneumonia at this time. Elevated troponin reviewed and appreciated, this is a chronically elevated troponin, and I doubts that this is a manifestation of underlying acute coronary syndrome, given her documented cardiac history, but rather a leak secondary to her underlying cardiomyopathy. Lactic acid is reviewed and appreciated, clinically doubt pneumonia or bacteremia at this time, suspect that this is secondary to poor tissue perf usion, secondary to her underlying cardiac myopathy, and poor oxygenation based on acute on chronic respiratory failure. Nevertheless, given underlying history, for pulmonary toilet, low-grade temperature, we will cover empirically with Levaquin, as per review of old medical records, patient has tolerated this antibiotic in the past. Arterial blood gases pending at this time, patient has been maintained on high flow hydrating nasal cannula, they have vasomotor nephropathy, but appears to be globally fluid overloaded, and we will therefore withhold fluid therapy at this time. Case presented to Hospital physician, Dr. Martinez, who accepts the patient to the medical service. 04/26/18 12:22 Reevaluation #2: 04/26/18 12:33 Given poor mental status at this time, would consider BiPAP unsafe, given aspiration risk, therefore we will attempt trial of high flow high humidity nasal cannula. Reevaluation #3: 04/26/18 17:05 Mental status improved, therefore initiated trial of BiPAP therapy. ED Medical Decision Making - Lab Data Result diagrams: 04/26/18 11:19 04/26/18 11:19 Vital Signs 04/26/18 04/26/18 04/26/18 11:08 11:17 12:05 Temperature 99.4 F 100.0 F H Pulse Rate 103 H Respiratory 26 H Rate Blood Pressure 148/85 O2 Sat by Pulse 97 97 Oximetry Lab Results 04/26/18 04/26/18 04/26/18 Range/Units 11:19 11:19 11:19 WBC 8.9 (4.5-11.0) K/mm3 RBC 4.14 (3.65-5.03) M/mm3 Hgb 12.1 (10.1-14.3) gm/dl Hct 38.5 (30.3-42.9) % MCV 93 (79-97) fl MCH 29 (28-32) pg MCHC 31 (30-34) % RDW 19.3 H (13.2-15.2) % Plt Count 175 (140-440) K/mm3 Lymph % (Auto) 19.7 (13.4-35.0) % [place] % (Auto) 10.2 H (0.0-7.3) % Eos % (Auto) 0.1 (0.0-4.3) % Baso % (Auto) 0.6 (0.0-1.8) % Lymph # 1.8 (1.2-5.4) K/mm3 [place] # 0.9 H (0.0-0.8) K/mm3 Eos # 0.0 (0.0-0.4) K/mm3 Baso # 0.1 (0.0-0.1) K/mm3 Seg Neutrophils % 69.4 (40.0-70.0) % Seg Neutrophils # 6.2 (1.8-7.7) K/mm3 PT 14.1 (12.2-14.9) Sec. INR 1.05 (0.87-1.13) APTT (24.2-36.6) Sec. VBG pH (7.320-7.420) Sodium 136 L (137-145) mmol/L Potassium 5.6 H (3.6-5.0) mmol/L Chloride 96.9 L (98-107) mmol/L Carbon Dioxide 28 (22-30) mmol/L Anion Gap 17 mmol/L BUN 14 (7-17) mg/dL Creatinine 1.3 H (0.7-1.2) mg/dL Estimated GFR 53 ml/min BUN/Creatinine Ratio 11 % Glucose 113 H (65-100) mg/dL Lactic Acid (0.7-2.0) mmol/L Calcium 8.9 (8.4-10.2) mg/dL Total Bilirubin 0.30 (0.1-1.2) mg/dL AST 40 (5-40) units/L ALT 29 (7-56) units/L Alkaline Phosphatase 98 (35-129) units/L Total Creatine Kinase (30-135) units/L Troponin T (0.00-0.029) ng/mL Total Protein 7.1 (6.3-8.2) g/dL Albumin 4.3 (3.9-5) g/dL Albumin/Globulin Ratio 1.5 % Salicylates (2.8-20.0) mg/dL Acetaminophen (10.0-30.0) ug/mL 04/26/18 04/26/18 04/26/18 Range/Units 11:19 11:19 11:19 WBC (4.5-11.0) K/mm3 RBC (3.65-5.03) M/mm3 Hgb (10.1-14.3) gm/dl Hct (30.3-42.9) % MCV (79-97) fl MCH (28-32) pg MCHC (30-34) % RDW (13.2-15.2) % Plt Count (140-440) K/mm3 Lymph % (Auto) (13.4-35.0) % [place] % (Auto) (0.0-7.3) % Eos % (Auto) (0.0-4.3) % Baso % (Auto) (0.0-1.8) % Lymph # (1.2-5.4) K/mm3 [place] # (0.0-0.8) K/mm3 Eos # (0.0-0.4) K/mm3 Baso # (0.0-0.1) K/mm3 Seg Neutrophils % (40.0-70.0) % Seg Neutrophils # (1.8-7.7) K/mm3 PT (12.2-14.9) Sec. INR (0.87-1.13) APTT 30.9 (24.2-36.6) Sec. VBG pH 7.292 L (7.320-7.420) Sodium (137-145) mmol/L Potassium (3.6-5.0) mmol/L Chloride (98-107) mmol/L Carbon Dioxide (22-30) mmol/L Anion Gap mmol/L BUN (7-17) mg/dL Creatinine (0.7-1.2) mg/dL Estimated GFR ml/min BUN/Creatinine Ratio % Glucose (65-100) mg/dL Lactic Acid 2.10 H* (0.7-2.0) mmol/L Calcium (8.4-10.2) mg/dL Total Bilirubin (0.1-1.2) mg/dL AST (5-40) units/L ALT (7-56) units/L Alkaline Phosphatase (35-129) units/L Total Creatine Kinase (30-135) units/L Troponin T (0.00-0.029) ng/mL Total Protein (6.3-8.2) g/dL Albumin (3.9-5) g/dL Albumin/Globulin Ratio % Salicylates (2.8-20.0) mg/dL Acetaminophen (10.0-30.0) ug/mL 04/26/18 04/26/18 04/26/18 Range/Units 11:19 11:30 11:30 WBC (4.5-11.0) K/mm3 RBC (3.65-5.03) M/mm3 Hgb (10.1-14.3) gm/dl Hct (30.3-42.9) % MCV (79-97) fl MCH (28-32) pg MCHC (30-34) % RDW (13.2-15.2) % Plt Count (140-440) K/mm3 Lymph % (Auto) (13.4-35.0) % [place] % (Auto) (0.0-7.3) % Eos % (Auto) (0.0-4.3) % Baso % (Auto) (0.0-1.8) % Lymph # (1.2-5.4) K/mm3 [place] # (0.0-0.8) K/mm3 Eos # (0.0-0.4) K/mm3 Baso # (0.0-0.1) K/mm3 Seg Neutrophils % (40.0-70.0) % Seg Neutrophils # (1.8-7.7) K/mm3 PT (12.2-14.9) Sec. INR (0.87-1.13) APTT (24.2-36.6) Sec. VBG pH (7.320-7.420) Sodium (137-145) mmol/L Potassium (3.6-5.0) mmol/L Chloride (98-107) mmol/L Carbon Dioxide (22-30) mmol/L Anion Gap mmol/L BUN (7-17) mg/dL Creatinine (0.7-1.2) mg/dL Estimated GFR ml/min BUN/Creatinine Ratio % Glucose (65-100) mg/dL Lactic Acid (0.7-2.0) mmol/L Calcium (8.4-10.2) mg/dL Total Bilirubin (0.1-1.2) mg/dL AST (5-40) units/L ALT (7-56) units/L Alkaline Phosphatase (35-129) units/L Total Creatine Kinase 131 (30-135) units/L Troponin T 0.175 H* (0.00-0.029) ng/mL Total Protein (6.3-8.2) g/dL Albumin (3.9-5) g/dL Albumin/Globulin Ratio % Salicylates < 0.3 L (2.8-20.0) mg/dL Acetaminophen (10.0-30.0) ug/mL 04/26/18 Range/Units 11:30 WBC (4.5-11.0) K/mm3 RBC (3.65-5.03) M/mm3 Hgb (10.1-14.3) gm/dl Hct (30.3-42.9) % MCV (79-97) fl MCH (28-32) pg MCHC (30-34) % RDW (13.2-15.2) % Plt Count (140-440) K/mm3 Lymph % (Auto) (13.4-35.0) % [place] % (Auto) (0.0-7.3) % Eos % (Auto) (0.0-4.3) % Baso % (Auto) (0.0-1.8) % Lymph # (1.2-5.4) K/mm3 [place] # (0.0-0.8) K/mm3 Eos # (0.0-0.4) K/mm3 Baso # (0.0-0.1) K/mm3 Seg Neutrophils % (40.0-70.0) % Seg Neutrophils # (1.8-7.7) K/mm3 PT (12.2-14.9) Sec. INR (0.87-1.13) APTT (24.2-36.6) Sec. VBG pH (7.320-7.420) Sodium (137-145) mmol/L Potassium (3.6-5.0) mmol/L Chloride (98-107) mmol/L Carbon Dioxide (22-30) mmol/L Anion Gap mmol/L BUN (7-17) mg/dL Creatinine (0.7-1.2) mg/dL Estimated GFR ml/min BUN/Creatinine Ratio % Glucose (65-100) mg/dL Lactic Acid (0.7-2.0) mmol/L Calcium (8.4-10.2) mg/dL Total Bilirubin (0.1-1.2) mg/dL AST (5-40) units/L ALT (7-56) units/L Alkaline Phosphatase (35-129) units/L Total Creatine Kinase (30-135) units/L Troponin T (0.00-0.029) ng/mL Total Protein (6.3-8.2) g/dL Albumin (3.9-5) g/dL Albumin/Globulin Ratio % Salicylates (2.8-20.0) mg/dL Acetaminophen < 5.0 L (10.0-30.0) ug/mL - EKG Data -: EKG Interpreted by Me - EKG Data 04/26/18 12:17 Sinus tachycardia, 100 to be 2 minute, borderline left axis deviation, motion artifact, atrial enlargement, QTC prolonged, abnormal EKG, not consistent with ST elevation myocardial infarction. - Radiology Data Radiology results: report reviewed, image reviewed X-ray of the chest shows cardiomegaly, pulmonary vascular congestion Critical Care Time: Yes Critical care time in (mins) excluding proc time.: 35 Critical care attestation.: If time is entered above; I have spent that time in minutes in the direct care of this critically ill patient, excluding procedure time. ED Disposition Clinical Impression: Respiratory failure, Acute and chronic respiratory failure with hypercapnia Disposition: 09 OP ADMIT IP TO THIS HOSP Is pt being admited?: Yes Condition: Serious
[2018-04-26 11:32] LABS: Basophils # (Auto) 0.1 K/mm3 (0.0-0.1); Basophils % (Auto) 0.6 % (0.0-1.8); Eosinophils % (Auto) 0.1 % (0.0-4.3); Hematocrit 38.5 % (30.3-42.9); Hemoglobin 12.1 gm/dl (10.1-14.3); Lymphocytes # (Auto) 1.8 K/mm3 (1.2-5.4); Lymphocytes % (Auto) 19.7 % (13.4-35.0); Mean Corpuscular HGB Conc 31 % (30-34); Mean Corpuscular Volume 93 fl (79-97); Monocytes # (Auto) 0.9 K/mm3 (0.0-0.8); Monocytes % (Auto) 10.2 % (0.0-7.3); Platelet Count 175 K/mm3 (140-440); Red Blood Count 4.14 M/mm3 (3.65-5.03); Red Cell Distribution Width 19.3 % (13.2-15.2)
[2018-04-26 11:47] LABS: Albumin 4.3 g/dL (3.9-5); Calcium 8.9 mg/dL (8.4-10.2); INR 1.05 (0.87-1.13)
--- NOTE | 2018-04-26 11:55 | XRay Report ---
AP CHEST: HISTORY: Possible sepsis Mild cardiomegaly and mild pulmonary venous congestion. Minor linear scarring or atelectatic changes in the lower lung zones are noted. No evidence for consolidation, large pleural effusion or pneumothorax. No overwhelming change since 03/28/18. IMPRESSION: Mild cardiomegaly and pulmonary venous congestion.
[2018-04-26] MEDS ORDERED: KIONEX PR ONE (12:02)
[2018-04-26] MEDS ORDERED: SODIUM BICARBONATE IV ONE (12:02)
[2018-04-26] MEDS ORDERED: HumuLIN R IV ONE (12:02)
[2018-04-26] MEDS ORDERED: D50W (25GM) Syringe IV ONE (12:02)
[2018-04-26] MEDS ORDERED: LEVAQUIN 500MG/100ML 500 MG/100 ML BAG IV ONE (12:22)
[2018-04-26 12:23] LABS: Chol/HDL Ratio 2.11 %
[2018-04-26 12:51] LABS: Bacteria,Urine 2+ /HPF (Negative); Bilirubin,Urine NEG (Negative); Blood,Urine NEG (Negative); Color,Urine Yellow (Yellow); Protein,Urine <15 mg/dL mg/dL (Negative); Urobilinogen,Urine < 2.0 mg/dL (<2.0)
--- NOTE | 2018-04-26 14:47 | History and Physical Report ---
History of Present Illness Date of examination: 04/26/18 Date of admission: 04/26/18 12:21 Chief complaint: Increasing shortness of breath for 2 days History of present illness: 47-year-old female comes in for severe shortness of breath of 2 days' duration. Patient has history of nonischemic cardiomyopathy, COPD and chronic respiratory failure. Patient has been getting worsening shortness of breath in spite of using the nebulizer treatments. Cough productive of mucoid sputum. Orthopnea present. Shortness of breath on minimal exertion. No fever or chills. No PND attacks. No recent travel. Patient apparently has a ejection fraction of 45% by echocardiogram done in [place] which is decreased to 20-25% recently by echocardiogram. Patient is a resident of local retirement. Patient also send for weakness and malaise and out of mental status. Patient is not able to describe exacerbating or relieving factors. Patient is DO NOT RESUSCITATE and DO NOT INTUBATE Past Medical History Previous Medical History?: Yes Hypertension: Yes Congestive Heart Failure: Yes Diabetes: Yes Deep Vein Thrombosis: No Psychiatric Treatment: Yes (hx of schizophrenia, major depressive disorder) Asthma: Yes COPD: Yes Additional medical history: Dysphasia. obstructive sleep apnea Surgical History Past Surgical History?: Yes Hx Pacemaker: No Hx Internal Defibrillator: No Additional Surgical History: Partial hysterectomy. Tracheostomy Social History Smoking Status: Unknown if ever smoked Substance Use Type: None Family history Htn: Medications Home Medications: Home Medications Medication Instructions Recorded Confirmed Last Taken Type Docusate Sodium [Colace CAP] 100 mg PO BID 08/22/17 04/26/18 Unknown History Fluticasone [Flonase] 1 spray NS BID 08/22/17 04/26/18 Unknown History Loratadine [Claritin] 10 mg PO DAILY 08/22/17 04/26/18 Unknown History Carvedilol [Coreg] 3.125 mg PO BID #60 tablet 09/02/17 04/26/18 Unknown Rx QUEtiapine [SEROquel] 200 mg PO QHS tablet 01/22/18 04/26/18 Unknown Rx traZODone [Desyrel] 50 mg PO QHS tablet 01/22/18 04/26/18 Unknown Rx AtorvaSTATin [Lipitor] 40 mg PO QHS 02/02/18 04/26/18 Unknown History Budesonide [Pulmicort] 0.5 mg IH BID 02/02/18 04/26/18 Unknown History Famotidine [Pepcid] 20 mg PO DAILY 02/02/18 04/26/18 Unknown History Montelukast [Singulair] 10 mg PO QHS 02/02/18 04/26/18 Unknown History Sennosides [Senna] 17.2 mg PO QHS 02/02/18 04/26/18 Unknown History Sorbitol 70% 30 ml PO BID 02/02/18 04/26/18 Unknown History Spironolactone [Aldactone] 12.5 mg PO DAILY 02/02/18 04/26/18 Unknown History Furosemide [Lasix TAB] 40 mg PO DAILY@0600 #30 tablet 02/05/18 04/26/18 Unknown Rx LORazepam [Ativan] 1 mg PO Q6H #7 tablet 02/05/18 04/26/18 Unknown Rx Methadone [Dolophine] 5 mg PO BID #7 tablet 02/05/18 04/26/18 Unknown Rx Hydralazine HCl 37.5 mg PO Q8H 03/28/18 04/26/18 Unknown History Isosorbide Dinitrate [Isordil 20 mg PO Q8H 03/28/18 04/26/18 Unknown History Titradose] Losartan [Cozaar] 100 mg PO QDAY 03/28/18 04/26/18 Unknown History Metformin HCl [Glucophage] 1,000 mg PO BID 03/28/18 04/26/18 Unknown History ALBUTEROL NEB's [Proventil 0.083% 2.5 mg IH Q4HR PRN 04/26/18 04/26/18 Unknown History NEBS] Acetaminophen [Tylenol] 650 mg PO Q6HR PRN 04/26/18 04/26/18 Unknown History Aspirin EC [Ecotrin] 325 mg PO QDAY 04/26/18 04/26/18 Unknown History Insulin Regular, Human [HumuLIN R] See Protocol SUB-Q AC 04/26/18 04/26/18 Unknown History Ipratropium/Albuterol Sulfate 1 ampul IH TID 04/26/18 04/26/18 Unknown History [DUONEB *Not for PRN Use*] Polyethylene Glycol 3350 [Miralax 17 gm PO QDAY PRN 04/26/18 04/26/18 Unknown History 3350] Potassium Chloride 20 meq PO QDAY 04/26/18 04/26/18 Unknown History oxyCODONE /ACETAMINOPHEN [Percocet 1 tab PO DAILY PRN 04/26/18 04/26/18 Unknown History 5/325] Medications and Allergies Allergies Allergy/AdvReac Type Severity Reaction Status Date / Time Penicillins Allergy Unknown Verified 03/28/18 09:27 Sulfa (Sulfonamide Allergy Unknown Verified 03/28/18 09:27 Antibiotics) sulfabenzamide Allergy Unknown Verified 03/28/18 09:27 Home Medications Medication Instructions Recorded Confirmed Last Taken Type Docusate Sodium [Colace CAP] 100 mg PO BID 08/22/17 04/26/18 Unknown History Fluticasone [Flonase] 1 spray NS BID 08/22/17 04/26/18 Unknown History Loratadine [Claritin] 10 mg PO DAILY 08/22/17 04/26/18 Unknown History Carvedilol [Coreg] 3.125 mg PO BID #60 tablet 09/02/17 04/26/18 Unknown Rx QUEtiapine [SEROquel] 200 mg PO QHS tablet 01/22/18 04/26/18 Unknown Rx traZODone [Desyrel] 50 mg PO QHS tablet 01/22/18 04/26/18 Unknown Rx AtorvaSTATin [Lipitor] 40 mg PO QHS 02/02/18 04/26/18 Unknown History Budesonide [Pulmicort] 0.5 mg IH BID 02/02/18 04/26/18 Unknown History Famotidine [Pepcid] 20 mg PO DAILY 02/02/18 04/26/18 Unknown History Montelukast [Singulair] 10 mg PO QHS 02/02/18 04/26/18 Unknown History Sennosides [Senna] 17.2 mg PO QHS 02/02/18 04/26/18 Unknown History Sorbitol 70% 30 ml PO BID 02/02/18 04/26/18 Unknown History Spironolactone [Aldactone] 12.5 mg PO DAILY 02/02/18 04/26/18 Unknown History Furosemide [Lasix TAB] 40 mg PO DAILY@0600 #30 tablet 02/05/18 04/26/18 Unknown Rx LORazepam [Ativan] 1 mg PO Q6H #7 tablet 02/05/18 04/26/18 Unknown Rx Methadone [Dolophine] 5 mg PO BID #7 tablet 02/05/18 04/26/18 Unknown Rx Hydralazine HCl 37.5 mg PO Q8H 03/28/18 04/26/18 Unknown History Isosorbide Dinitrate [Isordil 20 mg PO Q8H 03/28/18 04/26/18 Unknown History Titradose] Losartan [Cozaar] 100 mg PO QDAY 03/28/18 04/26/18 Unknown History Metformin HCl [Glucophage] 1,000 mg PO BID 03/28/18 04/26/18 Unknown History ALBUTEROL NEB's [Proventil 0.083% 2.5 mg IH Q4HR PRN 04/26/18 04/26/18 Unknown History NEBS] Acetaminophen [Tylenol] 650 mg PO Q6HR PRN 04/26/18 04/26/18 Unknown History Aspirin EC [Ecotrin] 325 mg PO QDAY 04/26/18 04/26/18 Unknown History Insulin Regular, Human [HumuLIN R] See Protocol SUB-Q AC 04/26/18 04/26/18 Unknown History Ipratropium/Albuterol Sulfate 1 ampul IH TID 04/26/18 04/26/18 Unknown History [DUONEB *Not for PRN Use*] Polyethylene Glycol 3350 [Miralax 17 gm PO QDAY PRN 04/26/18 04/26/18 Unknown History 3350] Potassium Chloride 20 meq PO QDAY 04/26/18 04/26/18 Unknown History oxyCODONE /ACETAMINOPHEN [Percocet 1 tab PO DAILY PRN 04/26/18 04/26/18 Unknown History 5/325] Review of Systems All systems: negative Constitutional: no weight loss, no weight gain, no fever, no chills Ears, nose, mouth and throat: no dysphagia, no hoarseness, no sore throat, no swelling in mouth Breasts: no deferred Cardiovascular: shortness of breath, dyspnea on exertion, no chest pain, no orthopnea, no palpitations, no rapid/irregular heart beat, no edema, no syncope, no lightheadedness Respiratory: shortness of breath, dyspnea on exertion, congestion, wheezing Gastrointestinal: no abdominal pain, no nausea, no vomiting, no diarrhea, no constipation, no change in bowel habits, no hematemesis, no coffee ground emesis Rectal: no pain Musculoskeletal: no neck stiffness, no neck pain, no shooting arm pain, no arm numbness/tingling, no low back pain Integumentary: no rash, no pruritis, no redness, no sores Neurological: no seizures, no syncope Psychiatric: anxiety, sleep disturbances, hypersomnia Endocrine: no cold intolerance, no heat intolerance, no polyphagia, no excessive thirst, no polydipsia Hematologic/Lymphatic: no easy bruising, no easy bleeding Allergic/Immunologic: no urticaria, no allergic rhinitis, no wheezing Exam - Physical Exam Narrative exam: Patient lying on stretcher in serious distress with BiPAP mask on her She is tachypneic - Constitutional Vitals: Temp Pulse Resp BP Pulse Ox 100.0 F H 103 H 26 H 148/85 97 04/26/18 12:05 04/26/18 11:08 04/26/18 11:08 04/26/18 11:08 04/26/18 11:17 General appearance: Present: severe distress, well-nourished - EENT Eyes: Present: PERRL ENT: hearing intact, clear oral mucosa - Neck Neck: Present: supple, normal ROM - Respiratory Respiratory effort: normal Respiratory: bilateral: diminished, rhonchi, wheezing - Cardiovascular Heart rate: 88 Rhythm: irregularly irregular Heart Sounds: Present: S1 & S2. Absent: rub, click - Extremities Extremities: no ischemia, pulses intact, pulses symmetrical, No edema Extremity abnormal: edema Peripheral Pulses: within normal limits - Abdominal General gastrointestinal: Present: soft, non-tender, non-distended, normal bowel sounds Female genitourinary: Present: normal - Rectal Rectal Exam: deferred - Integumentary Integumentary: Present: clear, warm, dry - Musculoskeletal Musculoskeletal: gait normal, strength equal bilaterally - Psychiatric Psychiatric: appropriate mood/affect, intact judgment & insight - Neurologic Neurologic: CNII-XII intact, moves all extremities - Allied Health Allied health notes reviewed: nursing, case management Results - Labs CBC & Chem 7: 04/26/18 11:19 04/26/18 11:19 Labs: Laboratory Last Values WBC 8.9 K/mm3 (4.5-11.0) 04/26/18 11:19 RBC 4.14 M/mm3 (3.65-5.03) 04/26/18 11:19 Hgb 12.1 gm/dl (10.1-14.3) 04/26/18 11:19 Hct 38.5 % (30.3-42.9) 04/26/18 11:19 MCV 93 fl (79-97) 04/26/18 11:19 MCH 29 pg (28-32) 04/26/18 11:19 MCHC 31 % (30-34) 04/26/18 11:19 RDW 19.3 % (13.2-15.2) H 04/26/18 11:19 Plt Count 175 K/mm3 (140-440) 04/26/18 11:19 Lymph % (Auto) 19.7 % (13.4-35.0) 04/26/18 11:19 [place] % (Auto) 10.2 % (0.0-7.3) H 04/26/18 11:19 Eos % (Auto) 0.1 % (0.0-4.3) 04/26/18 11:19 Baso % (Auto) 0.6 % (0.0-1.8) 04/26/18 11:19 Lymph # 1.8 K/mm3 (1.2-5.4) 04/26/18 11:19 [place] # 0.9 K/mm3 (0.0-0.8) H 04/26/18 11:19 Eos # 0.0 K/mm3 (0.0-0.4) 04/26/18 11:19 Baso # 0.1 K/mm3 (0.0-0.1) 04/26/18 11:19 Seg Neutrophils % 69.4 % (40.0-70.0) 04/26/18 11:19 Seg Neutrophils # 6.2 K/mm3 (1.8-7.7) 04/26/18 11:19 PT 14.1 Sec. (12.2-14.9) 04/26/18 11:19 INR 1.05 (0.87-1.13) 04/26/18 11:19 APTT 30.9 Sec. (24.2-36.6) 04/26/18 11:19 VBG pH 7.292 (7.320-7.420) L 04/26/18 11:19 Sodium 136 mmol/L (137-145) L 04/26/18 11:19 Potassium 5.6 mmol/L (3.6-5.0) H 04/26/18 11:19 Chloride 96.9 mmol/L (98-107) L 04/26/18 11:19 Carbon Dioxide 28 mmol/L (22-30) 04/26/18 11:19 Anion Gap 17 mmol/L 04/26/18 11:19 BUN 14 mg/dL (7-17) 04/26/18 11:19 Creatinine 1.3 mg/dL (0.7-1.2) H 04/26/18 11:19 Estimated GFR 53 ml/min 04/26/18 11:19 BUN/Creatinine Ratio 11 % 04/26/18 11:19 Glucose 113 mg/dL (65-100) H 04/26/18 11:19 Lactic Acid 1.50 mmol/L (0.7-2.0) 04/26/18 12:09 Calcium 8.9 mg/dL (8.4-10.2) 04/26/18 11:19 Total Bilirubin 0.30 mg/dL (0.1-1.2) 04/26/18 11:19 AST 40 units/L (5-40) 04/26/18 11:19 ALT 29 units/L (7-56) 04/26/18 11:19 Alkaline Phosphatase 98 units/L (35-129) 04/26/18 11:19 Total Creatine Kinase 131 units/L (30-135) 04/26/18 11:30 Troponin T 0.175 ng/mL (0.00-0.029) H* 04/26/18 11:19 Total Protein 7.1 g/dL (6.3-8.2) 04/26/18 11:19 Albumin 4.3 g/dL (3.9-5) 04/26/18 11:19 Albumin/Globulin Ratio 1.5 % 04/26/18 11:19 Triglycerides 62 mg/dL (2-149) 04/26/18 11:19 Cholesterol 110 mg/dL (50-199) 04/26/18 11:19 LDL Cholesterol Direct 51 mg/dL (50-130) 04/26/18 11:19 HDL Cholesterol 52 mg/dL (40-59) 04/26/18 11:19 Cholesterol/HDL Ratio 2.11 % 04/26/18 11:19 Urine Color Yellow (Yellow) 04/26/18 12:05 Urine Turbidity Slightly-cloudy (Clear) 04/26/18 12:05 Urine pH 5.0 (5.0-7.0) 04/26/18 12:05 Ur Specific [place] 1.006 (1.003-1.030) 04/26/18 12:05 Urine Protein <15 mg/dl mg/dL (Negative) 04/26/18 12:05 Urine Glucose (UA) Neg mg/dL (Negative) 04/26/18 12:05 Urine Ketones Neg mg/dL (Negative) 04/26/18 12:05 Urine Blood Neg (Negative) 04/26/18 12:05 Urine Nitrite Neg (Negative) 04/26/18 12:05 Urine Bilirubin Neg (Negative) 04/26/18 12:05 Urine Urobilinogen < 2.0 mg/dL (<2.0) 04/26/18 12:05 Ur Leukocyte Esterase Tr (Negative) 04/26/18 12:05 Urine WBC (Auto) 3.0 /HPF (0.0-6.0) 04/26/18 12:05 Urine RBC (Auto) 6.0 /HPF (0.0-6.0) 04/26/18 12:05 Urine Bacteria (Auto) 2+ /HPF (Negative) 04/26/18 12:05 Salicylates < 0.3 mg/dL (2.8-20.0) L 04/26/18 11:30 Acetaminophen < 5.0 ug/mL (10.0-30.0) L 04/26/18 11:30 - Imaging and Cardiology EKG: report reviewed (atrial fibrillation heart rate of 88/m EKG interpreted by me) Chest x-ray: report reviewed Imaging and Cardiology: Chest x-ray Mild cardiomegaly and mild pulmonary venous congestion. Minor linear scarring or atelectatic changes in the lower lung zones are noted. No evidence for consolidation, large pleural effusion or pneumothorax. No overwhelming change since 03/28/18. IMPRESSION: Mild cardiomegaly and pulmonary venous congestion. Assessment and Plan Advance Directives: Yes VTE prophylaxis?: Chemical Plan of care discussed with patient/family: Yes - Patient Problems (1) Acute and chronic respiratory failure with hypercapnia Current Visit: Yes Status: Acute Plan to address problem: Patient in acute distress or failure with hypoxia and hypercapnia. Patient initiated on BiPAP machine. Tolerating well. Patient is DO NOT INTUBATE IV steroids and nebulizer treatments and IV antibiotics for now Pulmonary consult requested (2) COPD exacerbation Current Visit: No Status: Acute Plan to address problem: Nebulizer treatments IV Solu-Medrol and IV antibiotics Pulmicort inhalation twice a day (3) Hyperkalemia Current Visit: Yes Status: Acute Plan to address problem: Treated in the emergency room We will recheck the potassium level (4) Acute kidney injury Current Visit: Yes Status: Acute Plan to address problem: Gentle hydration Check BMP (5) Hyperlipidemia Current Visit: Yes Status: Chronic Qualifiers: Hyperlipidemia type: mixed hyperlipidemia Qualified Code(s): E78.2 - Mixed hyperlipidemia Plan to address problem: Continue statins (6) Asthma Current Visit: Yes Status: Chronic Qualifiers: Asthma severity: severe Plan to address problem: Continue Singulair (7) Hypertension Current Visit: Yes Status: Chronic Qualifiers: Hypertension type: essential hypertension Qualified Code(s): I10 - Essential (primary) hypertension Plan to address problem: Continue antihypertensive (8) Insulin dependent diabetes mellitus Current Visit: Yes Status: Chronic Plan to address problem: Continue home insulin and coverage Check hemoglobin A1c.. 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
[2018-04-26] MEDS ORDERED: ZOFRAN IV PRN (14:48)
[2018-04-26] MEDS ORDERED: TYLENOL PO PRN ×2 (14:48→14:57)
[2018-04-26] MEDS ORDERED: PROVENTIL IH PRN (14:53)
[2018-04-26] MEDS ORDERED: NON-FORMULARY (Losartan [Cozaar] 100 MG) PO SCH (15:00)
[2018-04-26] MEDS ORDERED: NON-FORMULARY (Potassium Chloride [Potassium Chloride] 20 MEQ) PO SCH (15:00)
[2018-04-26] MEDS ORDERED: NON-FORMULARY (Metformin Hcl [Glucophage] 1,000 MG) PO SCH (15:00)
[2018-04-26] MEDS ORDERED: ATIVAN ONE ×2 (16:08→20:54)
[2018-04-26] MEDS ORDERED: COREG ONE ×2 (16:09→21:48)
[2018-04-26] MEDS ORDERED: APRESOLINE ONE ×2 (16:10→21:48)
[2018-04-26] MEDS ORDERED: COZAAR ONE (16:10)
[2018-04-26] MEDS ORDERED: ASPIRIN ONE (16:11)
[2018-04-26] MEDS ORDERED: GLUCOPHAGE ONE (16:11)
[2018-04-26] MEDS: APRESOLINE PO SCH ×2 (16:16→22:18)
[2018-04-26] MEDS: ATIVAN PO SCH ×2 (16:16→21:23)
[2018-04-26] MEDS: COREG PO SCH ×2 (16:16→22:19)
[2018-04-26] MEDS: COZAAR PO SCH (16:16)
[2018-04-26] MEDS: GLUCOPHAGE PO SCH (16:16)
[2018-04-26] MEDS: ECOTRIN PO SCH (16:16)
[2018-04-26] MEDS: HumaLOG SUB-Q SCH ×2 (17:57→22:20)
[2018-04-26] MEDS ORDERED: PEPCID ONE (18:06)
[2018-04-26] MEDS ORDERED: COLACE ONE (18:06)
[2018-04-26] MEDS ORDERED: CLARITIN ONE (18:08)
[2018-04-26] MEDS: PEPCID PO SCH (18:12)
[2018-04-26] MEDS: CLARITIN PO SCH (18:12)
[2018-04-26] MEDS: COLACE PO SCH (18:12)
--- NOTE | 2018-04-26 19:21 | Consultation ---
History of Present Illness Consult date: 04/26/18 Reason for consult: dyspnea, cough, COPD History of present illness: pulmonary and critical care consultation Dr. Martinez thank you for asking us to participate in the care of this patient. 47-year-old female came to ER for severe shortness of breath of 2 days' duration. Patient has history of nonischemic cardiomyopathy, COPD and chronic respiratory failure. Patient has been getting worsening shortness of breath in spite of using the nebulizer treatments. Cough productive of mucoid sputum. Orthopnea present. Shortness of breath on minimal exertion. No fever or chills. No PND attacks. No recent travel. Patient apparently has a ejection fraction of 45% by echocardiogram done in [place] which is decreased to 20-25% recently by Echocardiogram. Patient is a resident of local [place] [facility]. Patient has history of smoking. Denies alcohol or drug abuse. Patient allergic to pencillins, Sulfa drugs and Sulfabenzamide. Patient has history of Tracheostomy in the past. Unable to get furthur history.Patient is sleepy. Past History Past Medical History: COPD, diabetes, hypertension Medications and Allergies Allergies Allergy/AdvReac Type Severity Reaction Status Date / Time Penicillins Allergy Unknown Verified 03/28/18 09:27 Sulfa (Sulfonamide Allergy Unknown Verified 03/28/18 09:27 Antibiotics) sulfabenzamide Allergy Unknown Verified 03/28/18 09:27 Home Medications Medication Instructions Recorded Confirmed Last Taken Type Docusate Sodium [Colace CAP] 100 mg PO BID 08/22/17 04/26/18 Unknown History Fluticasone [Flonase] 1 spray NS BID 08/22/17 04/26/18 Unknown History Loratadine [Claritin] 10 mg PO DAILY 08/22/17 04/26/18 Unknown History Carvedilol [Coreg] 3.125 mg PO BID #60 tablet 09/02/17 04/26/18 Unknown Rx QUEtiapine [SEROquel] 200 mg PO QHS tablet 01/22/18 04/26/18 Unknown Rx traZODone [Desyrel] 50 mg PO QHS tablet 01/22/18 04/26/18 Unknown Rx AtorvaSTATin [Lipitor] 40 mg PO QHS 02/02/18 04/26/18 Unknown History Budesonide [Pulmicort] 0.5 mg IH BID 02/02/18 04/26/18 Unknown History Famotidine [Pepcid] 20 mg PO DAILY 02/02/18 04/26/18 Unknown History Montelukast [Singulair] 10 mg PO QHS 02/02/18 04/26/18 Unknown History Sennosides [Senna] 17.2 mg PO QHS 02/02/18 04/26/18 Unknown History Sorbitol 70% 30 ml PO BID 02/02/18 04/26/18 Unknown History Spironolactone [Aldactone] 12.5 mg PO DAILY 02/02/18 04/26/18 Unknown History Furosemide [Lasix TAB] 40 mg PO DAILY@0600 #30 tablet 02/05/18 04/26/18 Unknown Rx LORazepam [Ativan] 1 mg PO Q6H #7 tablet 02/05/18 04/26/18 Unknown Rx Methadone [Dolophine] 5 mg PO BID #7 tablet 02/05/18 04/26/18 Unknown Rx Hydralazine HCl 37.5 mg PO Q8H 03/28/18 04/26/18 Unknown History Isosorbide Dinitrate [Isordil 20 mg PO Q8H 03/28/18 04/26/18 Unknown History Titradose] Losartan [Cozaar] 100 mg PO QDAY 03/28/18 04/26/18 Unknown History Metformin HCl [Glucophage] 1,000 mg PO BID 03/28/18 04/26/18 Unknown History ALBUTEROL NEB's [Proventil 0.083% 2.5 mg IH Q4HR PRN 04/26/18 04/26/18 Unknown History NEBS] Acetaminophen [Tylenol] 650 mg PO Q6HR PRN 04/26/18 04/26/18 Unknown History Aspirin EC [Ecotrin] 325 mg PO QDAY 04/26/18 04/26/18 Unknown History Insulin Regular, Human [HumuLIN R] See Protocol SUB-Q AC 04/26/18 04/26/18 Unknown History Ipratropium/Albuterol Sulfate 1 ampul IH TID 04/26/18 04/26/18 Unknown History [DUONEB *Not for PRN Use*] Polyethylene Glycol 3350 [Miralax 17 gm PO QDAY PRN 04/26/18 04/26/18 Unknown History 3350] Potassium Chloride 20 meq PO QDAY 04/26/18 04/26/18 Unknown History oxyCODONE /ACETAMINOPHEN [Percocet 1 tab PO DAILY PRN 04/26/18 04/26/18 Unknown History 5325] Active Meds: Active Medications Acetaminophen (Tylenol) 650 mg PO Q4H PRN PRN Reason: Pain MILD(1-3)/Fever >100.5/ARMSTRONG Albuterol (Proventil) 2.5 mg IH Q4HRT PRN PRN Reason: Shortness Of Breath Albuterol/Ipratropium (Duoneb *Not For Prn Use*) 1 ampul IH Q6HRT [facility] Aspirin (Ecotrin) 325 mg PO QDAY [facility] Last Admin: 04/26/18 16:16 Dose: 325 mg Documented by: Atorvastatin Calcium (Lipitor) 40 mg PO QHS [facility] Budesonide (Pulmicort) 0.5 mg IH Q12HRT [facility] Carvedilol (Coreg) 3.125 mg PO BID [facility] Last Admin: 04/26/18 16:16 Dose: 3.125 mg Documented by: Docusate Sodium (Colace) 100 mg PO BID [facility] Last Admin: 04/26/18 18:12 Dose: 100 mg Documented by: Famotidine (Pepcid) 20 mg PO DAILY [facility] Last Admin: 04/26/18 18:12 Dose: 20 mg Documented by: Fluticasone Propionate (Flonase) 50 mcg NS BID [facility] Furosemide (Lasix) 40 mg PO DAILY@0600 [facility] Hydralazine HCl (Apresoline) 37.5 mg PO Q8HR [facility] Last Admin: 04/26/18 16:16 Dose: 37.5 mg Documented by: Hydromorphone HCl (Dilaudid) 0.5 mg IV Q3H PRN PRN Reason: Pain , Severe (7-10) Levofloxacin/Dextrose (Levaquin 750mg/150ml) 750 mg in 150 mls @ 100 mls/hr IV Q24HR [facility]; Protocol Insulin Human Lispro (Humalog) 0 unit SUB-Q ACHS [facility]; Protocol Last Admin: 04/26/18 17:57 Dose: Not Given Documented by: Isosorbide Dinitrate (Isordil Titradose) 20 mg PO Q8HR [facility] Loratadine (Claritin) 10 mg PO DAILY [facility] Last Admin: 04/26/18 18:12 Dose: 10 mg Documented by: Lorazepam (Ativan) 1 mg PO Q6H [facility] Last Admin: 04/26/18 16:16 Dose: 1 mg Documented by: Losartan Potassium (Cozaar) 100 mg PO QDAY [facility] Last Admin: 04/26/18 16:16 Dose: 100 mg Documented by: Metformin HCl (Glucophage) 1,000 mg PO BIDDIAB [facility] Last Admin: 04/26/18 16:16 Dose: 1,000 mg Documented by: Methadone HCl (Dolophine) 5 mg PO BID [facility] Methylprednisolone Sodium Succinate (Solu-Medrol) 125 mg IV Q8H [facility] Montelukast Sodium (Singulair) 10 mg PO QHS [facility] Ondansetron HCl (Zofran) 4 mg IV Q8H PRN PRN Reason: Nausea And Vomiting Oxycodone/Acetaminophen (Percocet 5/325) 1 tab PO Q6H PRN PRN Reason: Pain, Moderate (4-6) Quetiapine Fumarate (Seroquel) 200 mg PO QHS [facility] Senna (Senokot) 17.2 mg PO QHS [facility] Sodium Chloride (Sodium Chloride Flush Syringe 10 Ml) 10 ml IV BID [facility] Sodium Chloride (Sodium Chloride Flush Syringe 10 Ml) 10 ml IV PRN PRN PRN Reason: LINE FLUSH Sorbitol (Sorbitol 70%) 30 ml PO BID [facility] Spironolactone (Aldactone) 12.5 mg PO DAILY [facility] Trazodone HCl (Desyrel) 50 mg PO QHS [facility] Review of Systems All systems: negative Physical Examination Vital signs: Vital Signs Pulse Ox 93 04/26/18 10:54 General appearance: asleep Eyes: non-icteric ENT: oropharynx moist Neck: supple, no JVD Ascultation: Bilateral: wheezes Cardiovascular: regular rate and rhythm Gastrointestinal: normoactive bowel sounds, soft, non-tender Integumentary: normal Extremities: no cyanosis, no edema Musculoskeletal: no deformities Gait: other (Unable to evaluate gait. Patient lying in bed.) non-focal exam, pupils equal and round, CN II-XII normal other (Patient sleeping at this time.) Results - Laboratory Findings CBC and BMP: 04/27/18 05:23 04/27/18 05:23 ABG POC ABG pH 7.316 (7.35-7.45) L 04/26/18 15:32 POC ABG pCO2 68.5 (35-45) H 04/26/18 15:32 POC ABG pO2 63 (80-105) L 04/26/18 15:32 POC ABG HCO3 35.0 04/26/18 15:32 POC ABG Total CO2 37 04/26/18 15:32 POC ABG O2 Sat 89 04/26/18 15:32 PT/INR, D-dimer PT 14.1 Sec. (12.2-14.9) 04/26/18 11:19 INR 1.05 (0.87-1.13) 04/26/18 11:19 Abnormal lab findings: Abnormal Labs 04/26/18 04/26/18 04/26/18 11:19 11:19 11:19 RDW 19.3 H [place] % (Auto) 10.2 H [place] # 0.9 H POC ABG pH POC ABG pCO2 POC ABG pO2 VBG pH Sodium 136 L Potassium 5.6 H Chloride 96.9 L Creatinine 1.3 H Glucose 113 H POC Glucose Lactic Acid 2.10 H* Troponin T Salicylates Acetaminophen 04/26/18 04/26/18 04/26/18 11:19 11:19 11:30 RDW [place] % (Auto) [place] # POC ABG pH POC ABG pCO2 POC ABG pO2 VBG pH 7.292 L Sodium Potassium Chloride Creatinine Glucose POC Glucose Lactic Acid Troponin T 0.175 H* Salicylates < 0.3 L Acetaminophen 04/26/18 04/26/18 04/26/18 11:30 13:14 15:32 RDW [place] % (Auto) [place] # POC ABG pH 7.277 L 7.316 L POC ABG pCO2 70.5 H 68.5 H POC ABG pO2 27 L 63 L VBG pH Sodium Potassium Chloride Creatinine Glucose POC Glucose Lactic Acid Troponin T Salicylates Acetaminophen < 5.0 L 04/26/18 17:56 RDW [place] % (Auto) [place] # POC ABG pH POC ABG pCO2 POC ABG pO2 VBG pH Sodium Potassium Chloride Creatinine Glucose POC Glucose 119 H Lactic Acid Troponin T Salicylates Acetaminophen - Diagnostic Findings Chest x-ray: report reviewed (Mild cardiomegaly and pulmonary vascular congestion.), image reviewed Assessment and Plan 47-year-old female came to ER for severe shortness of breath of 2 days' duration. Patient has history of nonischemic cardiomyopathy, COPD and chronic respiratory failure. Patient has been getting worsening shortness of breath in spite of using the nebulizer treatments. Cough productive of mucoid sputum. Orthopnea present. Shortness of breath on minimal exertion. No fever or chills. No PND attacks. No recent travel. Patient apparently has a ejection fraction of 45% by echocardiogram done in [place] which is decreased to 20-25% recently by Echocardiogram. Patient is a resident of local [place] [facility]. Patient has history of smoking. Denies alcohol or drug abuse. Patient allergic to pencillins, Sulfa drugs and Sulfabenzamide. Patient has history of Tracheostomy in the past. Unable to get furthur history.Patient is sleepy. - Patient Problems (1) Acute and chronic respiratory failure with hypercapnia Current Visit: Yes Status: Acute Plan to address problem: O2 4 litres via nasal canula. BIPAP 16/6, rate 16, FIO2 35% Albuterol/atrovent aerosol treatments q 6 hours. Continue I/V solumedral. SCDs Continue Famotidine Continue Levaquin. (2) Acute exacerbation of CHF (congestive heart failure) Current Visit: Yes Status: Acute Qualifiers: Heart failure type: combined systolic and diastolic Qualified Code(s): I50.43 - Acute on chronic combined systolic (congestive) and diastolic (congestive) heart failure Plan to address problem: Management as per cardiology. (3) Acute kidney injury Current Visit: Yes Status: Acute Plan to address problem: Management as per nephrology.
[2018-04-26] MEDS ORDERED: SOLU-Medrol ONE (20:52)
[2018-04-26] MEDS: SOLU-Medrol IV SCH (21:00)
[2018-04-26] MEDS: ISORDIL TITRADOSE PO SCH ×2 (21:22→22:20)
[2018-04-26] MEDS: ALDACTONE PO SCH (21:22)
[2018-04-26] MEDS ORDERED: DESYREL PO ONE (21:49)
[2018-04-26] MEDS: PULMICORT IH SCH (22:18)
[2018-04-26] MEDS: DUONEB *Not for PRN Use IH SCH (22:18)
[2018-04-26] MEDS: DOLOPHINE PO SCH (22:19)
[2018-04-26] MEDS: DESYREL PO SCH (22:19)
[2018-04-26] MEDS: FLONASE NS SCH (22:19)
[2018-04-26] MEDS: SODIUM CHLORIDE FLUSH SYRINGE 10 ML IV SCH (22:21)
[2018-04-26] MEDS: SINGULAIR PO SCH (22:21)
[2018-04-26] MEDS: SENOKOT PO SCH (23:30)
[2018-04-26] MEDS: SORBITOL 70% PO SCH (23:30)
[2018-04-27] MEDS: ATIVAN PO SCH ×4 (03:30→22:21)
[2018-04-27] MEDS: SOLU-Medrol IV SCH ×3 (04:30→20:37)
[2018-04-27] MEDS: ISORDIL TITRADOSE PO SCH ×3 (04:59→22:23)
[2018-04-27] MEDS: APRESOLINE PO SCH ×3 (05:06→22:20)
[2018-04-27 05:55] LABS: Basophils % (Auto) 0.4 % (0.0-1.8); Hematocrit 33.1 % (30.3-42.9); Hemoglobin 10.8 gm/dl (10.1-14.3); Lymphocytes # (Auto) 1.1 K/mm3 (1.2-5.4); Mean Corpuscular HGB Conc 33 % (30-34); Mean Corpuscular Volume 90 fl (79-97); Monocytes # (Auto) 0.4 K/mm3 (0.0-0.8); Monocytes % (Auto) 6.7 % (0.0-7.3); Platelet Count 178 K/mm3 (140-440); Red Blood Count 3.68 M/mm3 (3.65-5.03); Red Cell Distribution Width 18.4 % (13.2-15.2)
[2018-04-27] MEDS ORDERED: LASIX PO SCH (06:00)
[2018-04-27 06:22] LABS: Alanine Aminotransferase 22 units/L (7-56); Albumin 3.8 g/dL (3.9-5); BUN/Creatinine Ratio 23; Blood Urea Nitrogen 21 mg/dL (7-17); Calcium 8.2 mg/dL (8.4-10.2); Hemolysis Index 14
[2018-04-27] MEDS: DUONEB *Not for PRN Use IH SCH ×5 (07:52→20:36)
[2018-04-27] MEDS: PULMICORT IH SCH ×2 (07:52→20:36)
[2018-04-27] MEDS: COLACE PO SCH ×2 (09:32→22:22)
[2018-04-27] MEDS: LEVAQUIN 750MG/150ML 750 MG/150 ML BAG IV SCH (09:32)
[2018-04-27] MEDS: DOLOPHINE PO SCH ×2 (09:32→22:22)
[2018-04-27] MEDS: CLARITIN PO SCH (09:33)
[2018-04-27] MEDS: PEPCID PO SCH (09:33)
[2018-04-27] MEDS: ECOTRIN PO SCH (09:33)
[2018-04-27] MEDS: COREG PO SCH ×2 (09:33→22:23)
[2018-04-27] MEDS: GLUCOPHAGE PO SCH ×2 (09:34→16:08)
[2018-04-27] MEDS: FLONASE NS SCH ×2 (09:47→22:20)
[2018-04-27] MEDS: ALDACTONE PO SCH (09:47)
--- NOTE | 2018-04-27 12:33 | Progress Note ---
Assessment and Plan Assessment and plan: Acute on chronic hypoxemic respiratory failure. Continue BiPAP as clinically i ndicated. Patient is DO NOT INTUBATE. Pulmonary consult. Acute COPD exacerbation. Nebulizer treatments IV Solu-Medrol and IV antibiotics Pulmicort inhalation twice a day Acute kidney injury. Gentle hydration and follow-up BMP. Hyperlipidemia. Since the statins. Tobacco abuse. Patient reports smoking since age 14. Counseling on smoking cessation. Hypertension. Resume antihypertensive medications. Dilated Nonischemic Cardiomyopathy LHC at [facility] in 2013: no significant CAD, EF 45% moderately decrease LVEF 20-25% by echo 08/2017 Cardiology consultation. Diabetes mellitus type 2. Continue home insulin and coverage Check hemoglobin A1c. History Interval history: 47-year-old female comes in for severe shortness of breath of 2 days' duration. Patient has history of nonischemic cardiomyopathy, COPD and chronic respiratory failure. Patient has been getting worsening shortness of breath in spite of using the nebulizer treatments. Cough productive of mucoid sputum. Orthopnea present. Shortness of breath on minimal exertion. No fever or chills. No PND attacks. No recent travel. Patient apparently has a ejection fraction of 45% by echocardiogram done in [place] which is decreased to 20-25% recently by echocardiogram. [facility]. Hospitalist Physical - Constitutional Vitals: Temp Pulse Resp BP Pulse Ox 98.4 F 94 H 20 116/73 92 04/27/18 08:02 04/27/18 09:47 04/27/18 09:32 04/27/18 09:47 04/27/18 08:02 General appearance: Present: no acute distress, well-nourished - EENT Eyes: Present: PERRL, EOM intact ENT: hearing intact, clear oral mucosa, dentition normal - Neck Neck: Present: supple, normal ROM - Respiratory Respiratory effort: normal Respiratory: bilateral: CTA - Cardiovascular Rhythm: regular Heart Sounds: Present: S1 & S2. Absent: gallop, rub - Extremities Extremities: no ischemia, No edema, Full ROM - Abdominal General gastrointestinal: soft, non-tender, non-distended, normal bowel sounds - Integumentary Integumentary: Present: clear, warm, dry - Neurologic Neurologic: CNII-XII intact, moves all extremities Results - Labs CBC & Chem 7: 04/27/18 05:23 04/27/18 05:23 Labs: Laboratory Last Values WBC 6.6 K/mm3 (4.5-11.0) 04/27/18 05:23 RBC 3.68 M/mm3 (3.65-5.03) 04/27/18 05:23 Hgb 10.8 gm/dl (10.1-14.3) 04/27/18 05:23 Hct 33.1 % (30.3-42.9) 04/27/18 05:23 MCV 90 fl (79-97) 04/27/18 05:23 MCH 29 pg (28-32) 04/27/18 05:23 MCHC 33 % (30-34) 04/27/18 05:23 RDW 18.4 % (13.2-15.2) H 04/27/18 05:23 Plt Count 178 K/mm3 (140-440) 04/27/18 05:23 Lymph % (Auto) 17.0 % (13.4-35.0) 04/27/18 05:23 Bee % (Auto) 6.7 % (0.0-7.3) 04/27/18 05:23 Eos % (Auto) 0.0 % (0.0-4.3) 04/27/18 05:23 Baso % (Auto) 0.4 % (0.0-1.8) 04/27/18 05:23 Lymph # 1.1 K/mm3 (1.2-5.4) L 04/27/18 05:23 Bee # 0.4 K/mm3 (0.0-0.8) 04/27/18 05:23 Eos # 0.0 K/mm3 (0.0-0.4) 04/27/18 05:23 Baso # 0.0 K/mm3 (0.0-0.1) 04/27/18 05:23 Seg Neutrophils % 75.9 % (40.0-70.0) H 04/27/18 05:23 Seg Neutrophils # 5.0 K/mm3 (1.8-7.7) 04/27/18 05:23 PT 14.1 Sec. (12.2-14.9) 04/26/18 11:19 INR 1.05 (0.87-1.13) 04/26/18 11:19 APTT 30.9 Sec. (24.2-36.6) 04/26/18 11:19 POC ABG pH 7.316 (7.35-7.45) L 04/26/18 15:32 POC ABG pCO2 68.5 (35-45) H 04/26/18 15:32 POC ABG pO2 63 (80-105) L 04/26/18 15:32 POC ABG HCO3 35.0 04/26/18 15:32 POC ABG Total CO2 37 04/26/18 15:32 POC ABG O2 Sat 89 04/26/18 15:32 POC ABG Base Excess 9 04/26/18 15:32 VBG pH 7.292 (7.320-7.420) L 04/26/18 11:19 FiO2 45 % 04/26/18 15:32 Sodium 136 mmol/L (137-145) L 04/27/18 05:23 Potassium 4.7 mmol/L (3.6-5.0) 04/27/18 05:23 Chloride 94.8 mmol/L (98-107) L 04/27/18 05:23 Carbon Dioxide 30 mmol/L (22-30) 04/27/18 05:23 Anion Gap 16 mmol/L 04/27/18 05:23 BUN 21 mg/dL (7-17) H 04/27/18 05:23 Creatinine 0.9 mg/dL (0.7-1.2) 04/27/18 05:23 Estimated GFR > 60 ml/min 04/27/18 05:23 BUN/Creatinine Ratio 23 % 04/27/18 05:23 Glucose 183 mg/dL (65-100) H 04/27/18 05:23 POC Glucose 184 (70-105) H 04/27/18 11:45 Hemoglobin A1c 7.9 % (4-6) H 04/27/18 05:23 Lactic Acid 0.90 mmol/L (0.7-2.0) 04/26/18 15:50 Calcium 8.2 mg/dL (8.4-10.2) L 04/27/18 05:23 Total Bilirubin 0.20 mg/dL (0.1-1.2) 04/27/18 05:23 AST 19 units/L (5-40) 04/27/18 05:23 ALT 22 units/L (7-56) 04/27/18 05:23 Alkaline Phosphatase 76 units/L (35-129) 04/27/18 05:23 Total Creatine Kinase 131 units/L (30-135) 04/26/18 11:30 Troponin T 0.175 ng/mL (0.00-0.029) H* 04/26/18 11:19 Total Protein 6.1 g/dL (6.3-8.2) L 04/27/18 05:23 Albumin 3.8 g/dL (3.9-5) L 04/27/18 05:23 Albumin/Globulin Ratio 1.7 % 04/27/18 05:23 Triglycerides 62 mg/dL (2-149) 04/26/18 11:19 Cholesterol 110 mg/dL (50-199) 04/26/18 11:19 LDL Cholesterol Direct 51 mg/dL (50-130) 04/26/18 11:19 HDL Cholesterol 52 mg/dL (40-59) 04/26/18 11:19 Cholesterol/HDL Ratio 2.11 % 04/26/18 11:19 Urine Color Yellow (Yellow) 04/26/18 12:05 Urine Turbidity Slightly-cloudy (Clear) 04/26/18 12:05 Urine pH 5.0 (5.0-7.0) 04/26/18 12:05 Ur Specific [place] 1.006 (1.003-1.030) 04/26/18 12:05 Urine Protein <15 mg/dl mg/dL (Negative) 04/26/18 12:05 Urine Glucose (UA) Neg mg/dL (Negative) 04/26/18 12:05 Urine Ketones Neg mg/dL (Negative) 04/26/18 12:05 Urine Blood Neg (Negative) 04/26/18 12:05 Urine Nitrite Neg (Negative) 04/26/18 12:05 Urine Bilirubin Neg (Negative) 04/26/18 12:05 Urine Urobilinogen < 2.0 mg/dL (<2.0) 04/26/18 12:05 Ur Leukocyte Esterase Tr (Negative) 04/26/18 12:05 Urine WBC (Auto) 3.0 /HPF (0.0-6.0) 04/26/18 12:05 Urine RBC (Auto) 6.0 /HPF (0.0-6.0) 04/26/18 12:05 Urine Bacteria (Auto) 2+ /HPF (Negative) 04/26/18 12:05 Salicylates < 0.3 mg/dL (2.8-20.0) L 04/26/18 11:30 Acetaminophen < 5.0 ug/mL (10.0-30.0) L 04/26/18 11:30
[2018-04-27] MEDS: COZAAR PO SCH (12:41)
[2018-04-27] MEDS: HumaLOG SUB-Q SCH ×4 (12:53→22:24)
[2018-04-27] MEDS: SORBITOL 70% PO SCH ×2 (12:55→22:21)
[2018-04-27] MEDS: SODIUM CHLORIDE FLUSH SYRINGE 10 ML IV SCH ×2 (13:10→22:25)
--- NOTE | 2018-04-27 13:33 | Progress Note ---
Assessment and Plan Patient alert, awake. Says feeling better than yesterday.Patient is on 6 litres O2. O2 saturation 91%. - Patient Problems (1) Acute and chronic respiratory failure with hypercapnia Current Visit: Yes Status: Acute Plan to address problem: O2 6 litres via nasal canula. BIPAP 16/6, rate 16, FIO2 35% Albuterol/atrovent aerosol treatments q 6 hours. Continue I/V solumedral. SCDs Continue Famotidine Continue Levaquin. (2) Acute exacerbation of CHF (congestive heart failure) Current Visit: Yes Status: Acute Qualifiers: Heart failure type: combined systolic and diastolic Qualified Code(s): I50.43 - Acute on chronic combined systolic (congestive) and diastolic (congestive) heart failure Plan to address problem: Management as per cardiology. (3) Acute kidney injury Current Visit: Yes Status: Acute Plan to address problem: Management as per nephrology. Subjective Date of service: 04/27/18 Interval history: Patient alert, awake. Says feeling better than yesterday.Patient is on 6 litres O2. O2 saturation 91%. Objective Vital Signs - 12hr 04/27/18 04/27/18 04/27/18 04:00 04:14 04:59 Temperature 98.3 F 98.3 F Pulse Rate 93 H 94 H 94 H Pulse Rate [ Anterior Bilateral Throughout] Pulse Rate [ Bilateral] Respiratory 20 20 Rate Respiratory Rate [Anterior Bilateral Throughout] Respiratory Rate [Bilateral ] Blood Pressure 118/72 118/72 Blood Pressure 118/72 [Left] O2 Sat by Pulse 91 93 Oximetry 04/27/18 04/27/18 04/27/18 05:06 07:54 07:56 Temperature Pulse Rate 94 H Pulse Rate [ 97 H Anterior Bilateral Throughout] Pulse Rate [ 100 H Bilateral] Respiratory Rate Respiratory 20 Rate [Anterior Bilateral Throughout] Respiratory 18 Rate [Bilateral ] Blood Pressure 110/69 Blood Pressure [Left] O2 Sat by Pulse 91 Oximetry 04/27/18 04/27/18 04/27/18 08:02 09:32 09:33 Temperature 98.4 F Pulse Rate 94 H 94 H Pulse Rate [ Anterior Bilateral Throughout] Pulse Rate [ Bilateral] Respiratory 20 20 Rate Respiratory Rate [Anterior Bilateral Throughout] Respiratory Rate [Bilateral ] Blood Pressure 116/73 116/73 Blood Pressure [Left] O2 Sat by Pulse 92 Oximetry 04/27/18 04/27/18 04/27/18 09:47 10:32 12:41 Temperature Pulse Rate 94 H 67 Pulse Rate [ Anterior Bilateral Throughout] Pulse Rate [ Bilateral] Respiratory 20 Rate Respiratory Rate [Anterior Bilateral Throughout] Respiratory Rate [Bilateral ] Blood Pressure 116/73 113/63 Blood Pressure [Left] O2 Sat by Pulse Oximetry Constitutional: no acute distress, alert Eyes: non-icteric ENT: oropharynx moist Neck: supple, no JVD Ascultation: Bilateral: diminished breath sounds Cardiovascular: regular rate and rhythm Gastrointestinal: normoactive bowel sounds, soft, non-tender Integumentary: normal Extremities: no cyanosis, no edema Neurologic: non-focal exam, pupils equal and round, CN II-XII normal Psychiatric: other (Patient sleeping at this time.) CBC and BMP: 04/27/18 05:23 04/27/18 05:23 ABG, PT/INR, D-dimer: ABG POC ABG pH 7.316 (7.35-7.45) L 04/26/18 15:32 POC ABG pCO2 68.5 (35-45) H 04/26/18 15:32 POC ABG pO2 63 (80-105) L 04/26/18 15:32 POC ABG HCO3 35.0 04/26/18 15:32 POC ABG Total CO2 37 04/26/18 15:32 POC ABG O2 Sat 89 04/26/18 15:32 PT/INR, D-dimer PT 14.1 Sec. (12.2-14.9) 04/26/18 11:19 INR 1.05 (0.87-1.13) 04/26/18 11:19 Abnormal lab findings: Abnormal Labs 04/26/18 04/26/18 04/26/18 11:19 11:19 11:19 RDW 19.3 H [place] % (Auto) 10.2 H Lymph # [place] # 0.9 H Seg Neutrophils % POC ABG pH POC ABG pCO2 POC ABG pO2 VBG pH Sodium 136 L Potassium 5.6 H Chloride 96.9 L BUN Creatinine 1.3 H Glucose 113 H POC Glucose Hemoglobin A1c Lactic Acid 2.10 H* Calcium Troponin T Total Protein Albumin Salicylates Acetaminophen 04/26/18 04/26/18 04/26/18 11:19 11:19 11:30 RDW [place] % (Auto) Lymph # [place] # Seg Neutrophils % POC ABG pH POC ABG pCO2 POC ABG pO2 VBG pH 7.292 L Sodium Potassium Chloride BUN Creatinine Glucose POC Glucose Hemoglobin A1c Lactic Acid Calcium Troponin T 0.175 H* Total Protein Albumin Salicylates < 0.3 L Acetaminophen 04/26/18 04/26/18 04/26/18 11:30 13:14 15:32 RDW [place] % (Auto) Lymph # [place] # Seg Neutrophils % POC ABG pH 7.277 L 7.316 L POC ABG pCO2 70.5 H 68.5 H POC ABG pO2 27 L 63 L VBG pH Sodium Potassium Chloride BUN Creatinine Glucose POC Glucose Hemoglobin A1c Lactic Acid Calcium Troponin T Total Protein Albumin Salicylates Acetaminophen < 5.0 L 04/26/18 04/26/18 04/27/18 17:56 21:56 05:19 RDW [place] % (Auto) Lymph # [place] # Seg Neutrophils % POC ABG pH POC ABG pCO2 POC ABG pO2 VBG pH Sodium Potassium Chloride BUN Creatinine Glucose POC Glucose 119 H 164 H 184 H Hemoglobin A1c Lactic Acid Calcium Troponin T Total Protein Albumin Salicylates Acetaminophen 04/27/18 04/27/18 04/27/18 05:23 05:23 05:23 RDW 18.4 H [place] % (Auto) Lymph # 1.1 L [place] # Seg Neutrophils % 75.9 H POC ABG pH POC ABG pCO2 POC ABG pO2 VBG pH Sodium 136 L Potassium Chloride 94.8 L BUN 21 H Creatinine Glucose 183 H POC Glucose Hemoglobin A1c 7.9 H Lactic Acid Calcium 8.2 L Troponin T Total Protein 6.1 L Albumin 3.8 L Salicylates Acetaminophen 04/27/18 11:45 RDW [place] % (Auto) Lymph # [place] # Seg Neutrophils % POC ABG pH POC ABG pCO2 POC ABG pO2 VBG pH Sodium Potassium Chloride BUN Creatinine Glucose POC Glucose 184 H Hemoglobin A1c Lactic Acid Calcium Troponin T Total Protein Albumin Salicylates Acetaminophen
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
[2018-04-27] MEDS: PERCOCET 5/325 PO PRN (16:07)
[2018-04-27] MEDS ORDERED: NACL 0.9% 500 ML 500 ML IV SCH (19:00)
[2018-04-27] MEDS: LASIX IV SCH (20:38)
[2018-04-27] MEDS: ROBITUSSIN AC PO PRN (22:19)
[2018-04-27] MEDS: DESYREL PO SCH (22:21)
[2018-04-27] MEDS: SENOKOT PO SCH (22:22)
[2018-04-27] MEDS: SINGULAIR PO SCH (22:23)
[2018-04-28] MEDS: DUONEB *Not for PRN Use IH SCH ×4 (03:07→20:44)
[2018-04-28] MEDS: SOLU-Medrol IV SCH ×3 (05:32→20:40)
[2018-04-28] MEDS: ATIVAN PO SCH ×4 (05:32→20:40)
[2018-04-28 05:56] LABS: Basophils % (Auto) 0.1 % (0.0-1.8); Hematocrit 33.8 % (30.3-42.9); Lymphocytes # (Auto) 0.9 K/mm3 (1.2-5.4); Lymphocytes % (Auto) 11.7 % (13.4-35.0); Mean Corpuscular HGB Conc 32 % (30-34); Mean Corpuscular Volume 91 fl (79-97); Monocytes # (Auto) 0.5 K/mm3 (0.0-0.8); Monocytes % (Auto) 6.6 % (0.0-7.3); Platelet Count 194 K/mm3 (140-440); Red Blood Count 3.74 M/mm3 (3.65-5.03); Red Cell Distribution Width 18.6 % (13.2-15.2)
[2018-04-28 06:05] LABS: BUN/Creatinine Ratio 30; Blood Urea Nitrogen 27 mg/dL (7-17); Calcium 8.6 mg/dL (8.4-10.2); Hemolysis Index 18; INR 0.99 (0.87-1.13)
[2018-04-28] MEDS: APRESOLINE PO SCH ×3 (06:29→22:25)
[2018-04-28] MEDS: ISORDIL TITRADOSE PO SCH ×3 (06:29→22:23)
[2018-04-28] MEDS: HumaLOG SUB-Q SCH ×4 (07:30→22:27)
[2018-04-28] MEDS: PULMICORT IH SCH ×2 (08:20→20:44)
[2018-04-28] MEDS: DILAUDID IV PRN ×4 (08:20→18:30)
--- NOTE | 2018-04-28 08:32 | Progress Note ---
Assessment and Plan Patient alert, awake. Says feeling some what better to day. Patient was on BIPAP last night. Patient Presently receiving aerosol treatment. O2 saturation 96%. - Patient Problems (1) Acute and chronic respiratory failure with hypercapnia Current Visit: Yes Status: Acute Plan to address problem: Placing her on 4 litres O2 and monitor saturation. BIPAP 16/6, rate 16, FIO2 35% Albuterol/atrovent aerosol treatments q 6 hours. Continue I/V solumedral. SCDs Continue Famotidine Continue Levaquin. (2) Acute exacerbation of CHF (congestive heart failure) Current Visit: Yes Status: Acute Qualifiers: Heart failure type: combined systolic and diastolic Qualified Code(s): I50.43 - Acute on chronic combined systolic (congestive) and diastolic (congestive) heart failure Plan to address problem: Management as per cardiology. (3) Acute kidney injury Current Visit: Yes Status: Acute Plan to address problem: Management as per nephrology. (4) COPD exacerbation Current Visit: No Status: Acute Plan to address problem: Placing her on 4 litres O2 and monitor saturation. BIPAP 16/6, rate 16, FIO2 35% Albuterol/atrovent aerosol treatments q 6 hours. Continue I/V solumedral. SCDs Continue Famotidine Continue Levaquin. (5) Sleep apnea syndrome Current Visit: No Status: Acute Plan to address problem: BIPAP 16/6, rate 16, FIO2 35%. Recommend to loose weight. Explained sleep apnea. Subjective Date of service: 04/28/18 Interval history: Patient alert, awake. Says feeling some what better to day. Patient was on BIPAP last night. Patient Presently receiving aerosol treatment. O2 saturation 96%. Objective Vital Signs - 12hr 04/27/18 04/27/18 04/27/18 20:34 20:36 20:46 Temperature Pulse Rate Pulse Rate [ Apical] Pulse Rate [ 103 H 99 H Bilateral] Pulse Rate [ From Monitor] Respiratory Rate Respiratory 20 20 Rate [Bilateral ] Respiratory Rate [ Generalized] Blood Pressure O2 Sat by Pulse 93 Oximetry 04/27/18 04/27/18 04/27/18 20:52 22:00 22:20 Temperature 98.6 F Pulse Rate 99 H 99 H Pulse Rate [ Apical] Pulse Rate [ Bilateral] Pulse Rate [ From Monitor] Respiratory 22 Rate Respiratory Rate [Bilateral ] Respiratory 18 Rate [ Generalized] Blood Pressure 130/60 130/60 O2 Sat by Pulse 88 Oximetry 04/27/18 04/27/18 04/27/18 22:22 22:23 22:30 Temperature Pulse Rate 99 H Pulse Rate [ 99 H Apical] Pulse Rate [ Bilateral] Pulse Rate [ 99 H From Monitor] Respiratory 18 20 Rate Respiratory Rate [Bilateral ] Respiratory Rate [ Generalized] Blood Pressure 130/60 O2 Sat by Pulse 95 Oximetry 04/27/18 04/28/18 04/28/18 23:22 00:15 00:42 Temperature 98.8 F Pulse Rate 87 97 H Pulse Rate [ Apical] Pulse Rate [ Bilateral] Pulse Rate [ From Monitor] Respiratory 18 18 20 Rate Respiratory Rate [Bilateral ] Respiratory Rate [ Generalized] Blood Pressure 140/77 O2 Sat by Pulse 96 95 Oximetry 04/28/18 04/28/18 04/28/18 03:07 03:12 03:17 Temperature Pulse Rate 88 Pulse Rate [ Apical] Pulse Rate [ 93 H 87 Bilateral] Pulse Rate [ From Monitor] Respiratory 18 Rate Respiratory 17 18 Rate [Bilateral ] Respiratory Rate [ Generalized] Blood Pressure O2 Sat by Pulse 100 Oximetry 04/28/18 04/28/18 06:27 06:29 Temperature 97.3 F L Pulse Rate 80 80 Pulse Rate [ Apical] Pulse Rate [ Bilateral] Pulse Rate [ From Monitor] Respiratory 20 Rate Respiratory Rate [Bilateral ] Respiratory Rate [ Generalized] Blood Pressure 121/79 121/79 O2 Sat by Pulse 94 Oximetry Constitutional: no acute distress, alert Eyes: non-icteric ENT: oropharynx moist Neck: supple, no JVD Ascultation: Bilateral: diminished breath sounds, wheezes Cardiovascular: regular rate and rhythm Gastrointestinal: normoactive bowel sounds, soft, non-tender Integumentary: normal Extremities: no cyanosis, no edema Neurologic: non-focal exam, pupils equal and round, CN II-XII normal Psychiatric: other (Patient sleeping at this time.) CBC and BMP: 04/28/18 04:57 04/28/18 04:57 ABG, PT/INR, D-dimer: ABG POC ABG pH 7.316 (7.35-7.45) L 04/26/18 15:32 POC ABG pCO2 68.5 (35-45) H 04/26/18 15:32 POC ABG pO2 63 (80-105) L 04/26/18 15:32 POC ABG HCO3 35.0 04/26/18 15:32 POC ABG Total CO2 37 04/26/18 15:32 POC ABG O2 Sat 89 04/26/18 15:32 PT/INR, D-dimer PT 13.5 Sec. (12.2-14.9) 04/28/18 04:57 INR 0.99 (0.87-1.13) 04/28/18 04:57 Abnormal lab findings: Abnormal Labs 04/26/18 04/26/18 04/26/18 11:19 11:19 11:19 RDW 19.3 H Lymph % (Auto) [place] % (Auto) 10.2 H Lymph # [place] # 0.9 H Seg Neutrophils % POC ABG pH POC ABG pCO2 POC ABG pO2 VBG pH Sodium 136 L Potassium 5.6 H Chloride 96.9 L Carbon Dioxide BUN Creatinine 1.3 H Glucose 113 H POC Glucose Hemoglobin A1c Lactic Acid 2.10 H* Calcium Troponin T Total Protein Albumin Salicylates Acetaminophen 04/26/18 04/26/18 04/26/18 11:19 11:19 11:30 RDW Lymph % (Auto) [place] % (Auto) Lymph # [place] # Seg Neutrophils % POC ABG pH POC ABG pCO2 POC ABG pO2 VBG pH 7.292 L Sodium Potassium Chloride Carbon Dioxide BUN Creatinine Glucose POC Glucose Hemoglobin A1c Lactic Acid Calcium Troponin T 0.175 H* Total Protein Albumin Salicylates < 0.3 L Acetaminophen 04/26/18 04/26/18 04/26/18 11:30 13:14 15:32 RDW Lymph % (Auto) [place] % (Auto) Lymph # [place] # Seg Neutrophils % POC ABG pH 7.277 L 7.316 L POC ABG pCO2 70.5 H 68.5 H POC ABG pO2 27 L 63 L VBG pH Sodium Potassium Chloride Carbon Dioxide BUN Creatinine Glucose POC Glucose Hemoglobin A1c Lactic Acid Calcium Troponin T Total Protein Albumin Salicylates Acetaminophen < 5.0 L 04/26/18 04/26/18 04/27/18 17:56 21:56 05:19 RDW Lymph % (Auto) [place] % (Auto) Lymph # [place] # Seg Neutrophils % POC ABG pH POC ABG pCO2 POC ABG pO2 VBG pH Sodium Potassium Chloride Carbon Dioxide BUN Creatinine Glucose POC Glucose 119 H 164 H 184 H Hemoglobin A1c Lactic Acid Calcium Troponin T Total Protein Albumin Salicylates Acetaminophen 04/27/18 04/27/18 04/27/18 05:23 05:23 05:23 RDW 18.4 H Lymph % (Auto) [place] % (Auto) Lymph # 1.1 L [place] # Seg Neutrophils % 75.9 H POC ABG pH POC ABG pCO2 POC ABG pO2 VBG pH Sodium 136 L Potassium Chloride 94.8 L Carbon Dioxide BUN 21 H Creatinine Glucose 183 H POC Glucose Hemoglobin A1c 7.9 H Lactic Acid Calcium 8.2 L Troponin T Total Protein 6.1 L Albumin 3.8 L Salicylates Acetaminophen 04/27/18 04/27/18 04/27/18 11:45 15:42 21:51 RDW Lymph % (Auto) [place] % (Auto) Lymph # [place] # Seg Neutrophils % POC ABG pH POC ABG pCO2 POC ABG pO2 VBG pH Sodium Potassium Chloride Carbon Dioxide BUN Creatinine Glucose POC Glucose 184 H 108 H 230 H Hemoglobin A1c Lactic Acid Calcium Troponin T Total Protein Albumin Salicylates Acetaminophen 04/28/18 04/28/18 04/28/18 04:57 04:57 07:14 RDW 18.6 H Lymph % (Auto) 11.7 L [place] % (Auto) Lymph # 0.9 L [place] # Seg Neutrophils % 81.6 H POC ABG pH POC ABG pCO2 POC ABG pO2 VBG pH Sodium Potassium Chloride 97.0 L Carbon Dioxide 31 H BUN 27 H Creatinine Glucose 206 H POC Glucose 187 H Hemoglobin A1c Lactic Acid Calcium Troponin T Total Protein Albumin Salicylates Acetaminophen
[2018-04-28] MEDS: COZAAR PO SCH (10:03)
[2018-04-28] MEDS: DOLOPHINE PO SCH ×2 (10:03→22:23)
[2018-04-28] MEDS: LEVAQUIN 750MG/150ML 750 MG/150 ML BAG IV SCH (10:03)
[2018-04-28] MEDS: LASIX IV SCH (10:03)
[2018-04-28] MEDS: PEPCID PO SCH (10:04)
[2018-04-28] MEDS: CLARITIN PO SCH (10:04)
[2018-04-28] MEDS: COREG PO SCH ×2 (10:04→22:24)
[2018-04-28] MEDS: COLACE PO SCH ×2 (10:04→22:22)
[2018-04-28] MEDS: ALDACTONE PO SCH (10:04)
[2018-04-28] MEDS: ECOTRIN PO SCH (10:04)
[2018-04-28] MEDS: SODIUM CHLORIDE FLUSH SYRINGE 10 ML IV SCH ×2 (10:05→22:27)
[2018-04-28] MEDS: PERCOCET 5/325 PO PRN ×2 (10:30→17:10)
--- NOTE | 2018-04-28 10:36 | Progress Note ---
Assessment and Plan Assessment and plan: Acute on chronic hypoxemic respiratory failure. Continue BiPAP as clinically i ndicated. Patient is DO NOT INTUBATE. Etiology is multifactorial secondary to decompensated heart failure, COPD exacerbation and probable SHANIQUE/OHS. Acute COPD exacerbation. Nebulizer treatments IV Solu-Medrol and IV antibiotics Pulmicort inhalation twice a day Acute on chronic systolic heart failure. Cardiology recommends right left heart catheterization Dilated Nonischemic Cardiomyopathy [facility] at [facility] in 2013: no significant CAD, EF 45% moderately decrease LVEF 20-25% by echo 08/2017 Cardiology . Acute kidney injury. Gentle hydration and follow-up BMP. Hyperlipidemia. Since the statins. Tobacco abuse. Patient reports smoking since age 14. Counseling on smoking cessation. Hypertension. Cont. antihypertensive medications. Diabetes mellitus type 2. Continue home insulin and coverage Hemoglobin A1c is 7.9. History Interval history: 47-year-old female comes in for severe shortness of breath of 2 days' duration. Patient has history of nonischemic cardiomyopathy, COPD and chronic respiratory failure. Patient has been getting worsening shortness of breath in spite of using the nebulizer treatments. Cough productive of mucoid sputum. Orthopnea present. Shortness of breath on minimal exertion. No fever or chills. No PND attacks. No recent travel. Patient apparently has a ejection fraction of 45% by echocardiogram done in [place] which is decreased to 20-25% recently by echocardiogram. Patient is a resident of local custodial. Hospitalist Physical - Constitutional Vitals: Temp Pulse Resp BP Pulse Ox 97.5 F L 85 20 134/80 91 04/28/18 08:11 04/28/18 08:48 04/28/18 08:48 04/28/18 08:11 04/28/18 08:20 General appearance: Present: no acute distress, obese - EENT Eyes: Present: PERRL, EOM intact ENT: hearing intact, clear oral mucosa, dentition normal - Neck Neck: Present: supple, normal ROM - Respiratory Respiratory effort: normal Respiratory: bilateral: CTA - Cardiovascular Rhythm: regular Heart Sounds: Present: S1 & S2. Absent: gallop, rub - Extremities Extremities: no ischemia, No edema, Full ROM - Abdominal General gastrointestinal: soft, non-tender, non-distended, normal bowel sounds - Integumentary Integumentary: Present: clear, warm, dry - Neurologic Neurologic: CNII-XII intact, moves all extremities Results - Labs CBC & Chem 7: 04/28/18 04:57 04/28/18 04:57 Labs: Laboratory Last Values WBC 7.8 K/mm3 (4.5-11.0) 04/28/18 04:57 RBC 3.74 M/mm3 (3.65-5.03) 04/28/18 04:57 Hgb 11.0 gm/dl (10.1-14.3) 04/28/18 04:57 Hct 33.8 % (30.3-42.9) 04/28/18 04:57 MCV 91 fl (79-97) 04/28/18 04:57 MCH 29 pg (28-32) 04/28/18 04:57 MCHC 32 % (30-34) 04/28/18 04:57 RDW 18.6 % (13.2-15.2) H 04/28/18 04:57 Plt Count 194 K/mm3 (140-440) 04/28/18 04:57 Lymph % (Auto) 11.7 % (13.4-35.0) L 04/28/18 04:57 [place] % (Auto) 6.6 % (0.0-7.3) 04/28/18 04:57 Eos % (Auto) 0.0 % (0.0-4.3) 04/28/18 04:57 Baso % (Auto) 0.1 % (0.0-1.8) 04/28/18 04:57 Lymph # 0.9 K/mm3 (1.2-5.4) L 04/28/18 04:57 [place] # 0.5 K/mm3 (0.0-0.8) 04/28/18 04:57 Eos # 0.0 K/mm3 (0.0-0.4) 04/28/18 04:57 Baso # 0.0 K/mm3 (0.0-0.1) 04/28/18 04:57 Seg Neutrophils % 81.6 % (40.0-70.0) H 04/28/18 04:57 Seg Neutrophils # 6.4 K/mm3 (1.8-7.7) 04/28/18 04:57 PT 13.5 Sec. (12.2-14.9) 04/28/18 04:57 INR 0.99 (0.87-1.13) 04/28/18 04:57 APTT 30.9 Sec. (24.2-36.6) 04/26/18 11:19 POC ABG pH 7.316 (7.35-7.45) L 04/26/18 15:32 POC ABG pCO2 68.5 (35-45) H 04/26/18 15:32 POC ABG pO2 63 (80-105) L 04/26/18 15:32 POC ABG HCO3 35.0 04/26/18 15:32 POC ABG Total CO2 37 04/26/18 15:32 POC ABG O2 Sat 89 04/26/18 15:32 POC ABG Base Excess 9 04/26/18 15:32 VBG pH 7.292 (7.320-7.420) L 04/26/18 11:19 FiO2 45 % 04/26/18 15:32 Sodium 140 mmol/L (137-145) 04/28/18 04:57 Potassium 4.7 mmol/L (3.6-5.0) 04/28/18 04:57 Chloride 97.0 mmol/L (98-107) L 04/28/18 04:57 Carbon Dioxide 31 mmol/L (22-30) H 04/28/18 04:57 Anion Gap 17 mmol/L 04/28/18 04:57 BUN 27 mg/dL (7-17) H 04/28/18 04:57 Creatinine 0.9 mg/dL (0.7-1.2) 04/28/18 04:57 Estimated GFR > 60 ml/min 04/28/18 04:57 BUN/Creatinine Ratio 30 % 04/28/18 04:57 Glucose 206 mg/dL (65-100) H 04/28/18 04:57 POC Glucose 187 (70-105) H 04/28/18 07:14 Hemoglobin A1c 7.9 % (4-6) H 04/27/18 05:23 Lactic Acid 0.90 mmol/L (0.7-2.0) 04/26/18 15:50 Calcium 8.6 mg/dL (8.4-10.2) 04/28/18 04:57 Total Bilirubin 0.20 mg/dL (0.1-1.2) 04/27/18 05:23 AST 19 units/L (5-40) 04/27/18 05:23 ALT 22 units/L (7-56) 04/27/18 05:23 Alkaline Phosphatase 76 units/L (35-129) 04/27/18 05:23 Total Creatine Kinase 131 units/L (30-135) 04/26/18 11:30 Troponin T 0.175 ng/mL (0.00-0.029) H* 04/26/18 11:19 Total Protein 6.1 g/dL (6.3-8.2) L 04/27/18 05:23 Albumin 3.8 g/dL (3.9-5) L 04/27/18 05:23 Albumin/Globulin Ratio 1.7 % 04/27/18 05:23 Triglycerides 62 mg/dL (2-149) 04/26/18 11:19 Cholesterol 110 mg/dL (50-199) 04/26/18 11:19 LDL Cholesterol Direct 51 mg/dL (50-130) 04/26/18 11:19 HDL Cholesterol 52 mg/dL (40-59) 04/26/18 11:19 Cholesterol/HDL Ratio 2.11 % 04/26/18 11:19 Urine Color Yellow (Yellow) 04/26/18 12:05 Urine Turbidity Slightly-cloudy (Clear) 04/26/18 12:05 Urine pH 5.0 (5.0-7.0) 04/26/18 12:05 Ur Specific [place] 1.006 (1.003-1.030) 04/26/18 12:05 Urine Protein <15 mg/dl mg/dL (Negative) 04/26/18 12:05 Urine Glucose (UA) Neg mg/dL (Negative) 04/26/18 12:05 Urine Ketones Neg mg/dL (Negative) 04/26/18 12:05 Urine Blood Neg (Negative) 04/26/18 12:05 Urine Nitrite Neg (Negative) 04/26/18 12:05 Urine Bilirubin Neg (Negative) 04/26/18 12:05 Urine Urobilinogen < 2.0 mg/dL (<2.0) 04/26/18 12:05 Ur Leukocyte Esterase Tr (Negative) 04/26/18 12:05 Urine WBC (Auto) 3.0 /HPF (0.0-6.0) 04/26/18 12:05 Urine RBC (Auto) 6.0 /HPF (0.0-6.0) 04/26/18 12:05 Urine Bacteria (Auto) 2+ /HPF (Negative) 04/26/18 12:05 Salicylates < 0.3 mg/dL (2.8-20.0) L 04/26/18 11:30 Acetaminophen < 5.0 ug/mL (10.0-30.0) L 04/26/18 11:30
--- NOTE | 2018-04-28 10:48 | Progress Note ---
Addendum entered and electronically signed by PILLO NICKERSON MD 04/28/18 11:08: Patient is refusing cath today. She is requesting to be rescheduled for tomorrow when her family member is available Original Note: Assessment and Plan Acute respiratory failure Decompensated heart failure COPD on oxygen as an outpatient Dilated Nonischemic Cardiomyopathy LHC at [facility] in 2013: no significant CAD, EF 45% moderately decrease LVEF 20-25% by echo 08/2017 Chronic elevated troponin Recommend: Fluid/sodium restriction. Aggressive heart failure management including diuretics, afterload agents, beta blockers and oral antiplatelet therapy. Cardiac cath will be postponed until tomorrow. Subjective Date of service: 04/28/18 Interval history: Patient declines a cardiac cath today. She wants to have this done, tomorrow, when her family member is able to be present. Objective Vital Signs Temp Pulse Pulse Pulse Pulse Pulse Resp 04/28/18 08:48 85 85 04/28/18 08:20 86 86 04/28/18 08:11 97.5 F L 78 12 04/28/18 06:29 80 04/28/18 06:27 97.3 F L 80 20 04/28/18 03:17 87 04/28/18 03:12 88 18 04/28/18 03:07 93 H 04/28/18 00:42 98.8 F 97 H 20 04/28/18 00:15 87 18 04/27/18 23:22 18 04/27/18 22:30 99 H 99 H 20 04/27/18 22:23 99 H 04/27/18 22:22 18 04/27/18 22:20 99 H 04/27/18 22:00 04/27/18 20:52 98.6 F 99 H 22 04/27/18 20:46 99 H 04/27/18 20:36 103 H 04/27/18 20:34 04/27/18 19:12 101 H 04/27/18 17:07 18 04/27/18 16:07 20 04/27/18 16:06 90 04/27/18 15:43 98.0 F 90 20 04/27/18 13:28 100 H 101 H 04/27/18 12:41 67 04/27/18 11:44 98.0 F 52 L 20 Resp Resp Resp BP BP Pulse Ox 04/28/18 08:48 20 20 04/28/18 08:20 20 20 91 04/28/18 08:11 134/80 95 04/28/18 06:29 121/79 04/28/18 06:27 121/79 94 04/28/18 03:17 18 04/28/18 03:12 100 04/28/18 03:07 17 04/28/18 00:42 140/77 95 04/28/18 00:15 96 04/27/18 23:22 04/27/18 22:30 95 04/27/18 22:23 130/60 04/27/18 22:22 04/27/18 22:20 130/60 04/27/18 22:00 18 04/27/18 20:52 130/60 88 04/27/18 20:46 20 04/27/18 20:36 20 04/27/18 20:34 93 04/27/18 19:12 04/27/18 17:07 04/27/18 16:07 04/27/18 16:06 126/85 04/27/18 15:43 126/85 98 04/27/18 13:28 18 18 04/27/18 12:41 113/63 04/27/18 11:44 113/63 74 L - Physical Examination General: No Apparent Distress HEENT: Positive: PERRL Cardiac: Positive: Reg Rate and Rhythm Lungs: Positive: Decreased Breath Sounds - Labs and Meds Coagulation 04/28/18 Range/Units 04:57 PT 13.5 (12.2-14.9) Sec. INR 0.99 (0.87-1.13) CBC 04/28/18 Range/Units 04:57 WBC 7.8 (4.5-11.0) K/mm3 RBC 3.74 (3.65-5.03) M/mm3 Hgb 11.0 (10.1-14.3) gm/dl Hct 33.8 (30.3-42.9) % Plt Count 194 (140-440) K/mm3 Lymph # 0.9 L (1.2-5.4) K/mm3 Braxton # 0.5 (0.0-0.8) K/mm3 Eos # 0.0 (0.0-0.4) K/mm3 Baso # 0.0 (0.0-0.1) K/mm3 Comprehensive Metabolic Panel 04/28/18 Range/Units 04:57 Sodium 140 (137-145) mmol/L Potassium 4.7 (3.6-5.0) mmol/L Chloride 97.0 L (98-107) mmol/L Carbon Dioxide 31 H (22-30) mmol/L BUN 27 H (7-17) mg/dL Creatinine 0.9 (0.7-1.2) mg/dL Glucose 206 H (65-100) mg/dL Calcium 8.6 (8.4-10.2) mg/dL
[2018-04-28] MEDS: SORBITOL 70% PO SCH ×2 (11:11→22:26)
[2018-04-28] MEDS: FLONASE NS SCH ×2 (11:11→22:22)
--- NOTE | 2018-04-28 16:58 | Consultation ---
History of Present Illness - Reason for Consult Consult date: 04/28/18 ESBL Requesting physician: CRISTELA RUFFIN - History of Present Illness 47 y/o female with history of morbid obesity, CHF EF 25%, COPD s/p previous trach, morbid obesity, previous colectomy, multiple admissions in the past, known to ID due to admission on 08/21/17 from a [facility] due to progressive shortness of breath sound to have sepsis due to ESBL Escherichia coli UTI +/- RLL pneumonia due to H. flu. Patient treated with meropenem x 8 days. Last admission on 03/26/18 due to COPD exacerbation. Re-admitted on 04/26/18 due to worsening SOB and cough for 3 days associated with productive cough with white sputum. In the ED, temp 99.4-100.5, HR 103, R 28, BP 153/87. WBC 8.9. Hg 12.2. Plat 175. Creat 1.3. Lactate 2.1. CXR right perihilar infiltrate. Review of Systems: General: + fevers, chills no rigors HEENT: no new visual disturbance Respiratory: ++ cough, + sputum, hemoptysis, ++shortness of breath Cardiovascular: No chest pain, syncope + LAZARO Gastrointestinal: No nausea, vomiting. left lower quadrant abdominal pain Genitourinary: No dysuria or hematuria Musculoskeletal: No new or worsening neck pain or back pain Neurologic: No headaches, seizures Hematologic: No easy bruising or bleeding Endocrine: No night sweats. Skin: negative for rash, jaundice Psychiatric: No suicidal or homicidal ideation Past History Past Medical History: COPD, diabetes, heart failure, hypertension Medications and Allergies Allergies Allergy/AdvReac Type Severity Reaction Status Date / Time Penicillins Allergy Unknown Verified 03/28/18 09:27 Sulfa (Sulfonamide Allergy Unknown Verified 03/28/18 09:27 Antibiotics) sulfabenzamide Allergy Unknown Verified 03/28/18 09:27 Home Medications Medication Instructions Recorded Confirmed Last Taken Type Docusate Sodium [Colace CAP] 100 mg PO BID 08/22/17 04/26/18 Unknown History Fluticasone [Flonase] 1 spray NS BID 08/22/17 04/26/18 Unknown History Loratadine [Claritin] 10 mg PO DAILY 08/22/17 04/26/18 Unknown History Carvedilol [Coreg] 3.125 mg PO BID #60 tablet 09/02/17 04/26/18 Unknown Rx QUEtiapine [SEROquel] 200 mg PO QHS tablet 01/22/18 04/26/18 Unknown Rx traZODone [Desyrel] 50 mg PO QHS tablet 01/22/18 04/26/18 Unknown Rx AtorvaSTATin [Lipitor] 40 mg PO QHS 02/02/18 04/26/18 Unknown History Budesonide [Pulmicort] 0.5 mg IH BID 02/02/18 04/26/18 Unknown History Famotidine [Pepcid] 20 mg PO DAILY 02/02/18 04/26/18 Unknown History Montelukast [Singulair] 10 mg PO QHS 02/02/18 04/26/18 Unknown History Sennosides [Senna] 17.2 mg PO QHS 02/02/18 04/26/18 Unknown History Sorbitol 70% 30 ml PO BID 02/02/18 04/26/18 Unknown History Spironolactone [Aldactone] 12.5 mg PO DAILY 02/02/18 04/26/18 Unknown History Furosemide [Lasix TAB] 40 mg PO DAILY@0600 #30 tablet 02/05/18 04/26/18 Unknown Rx LORazepam [Ativan] 1 mg PO Q6H #7 tablet 02/05/18 04/26/18 Unknown Rx Methadone [Dolophine] 5 mg PO BID #7 tablet 02/05/18 04/26/18 Unknown Rx Hydralazine HCl 37.5 mg PO Q8H 03/28/18 04/26/18 Unknown History Isosorbide Dinitrate [Isordil 20 mg PO Q8H 03/28/18 04/26/18 Unknown History Titradose] Losartan [Cozaar] 100 mg PO QDAY 03/28/18 04/26/18 Unknown History Metformin HCl [Glucophage] 1,000 mg PO BID 03/28/18 04/26/18 Unknown History ALBUTEROL NEB's [Proventil 0.083% 2.5 mg IH Q4HR PRN 04/26/18 04/26/18 Unknown History NEBS] Acetaminophen [Tylenol] 650 mg PO Q6HR PRN 04/26/18 04/26/18 Unknown History Aspirin EC [Ecotrin] 325 mg PO QDAY 04/26/18 04/26/18 Unknown History Insulin Regular, Human [HumuLIN R] See Protocol SUB-Q AC 04/26/18 04/26/18 Unknown History Ipratropium/Albuterol Sulfate 1 ampul IH TID 04/26/18 04/26/18 Unknown History [DUONEB *Not for PRN Use*] Polyethylene Glycol 3350 [Miralax 17 gm PO QDAY PRN 04/26/18 04/26/18 Unknown History 3350] Potassium Chloride 20 meq PO QDAY 04/26/18 04/26/18 Unknown History oxyCODONE /ACETAMINOPHEN [Percocet 1 tab PO DAILY PRN 04/26/18 04/26/18 Unknown History 5325] Active Meds: Active Medications Acetaminophen (Tylenol) 650 mg PO Q4H PRN PRN Reason: Pain MILD(1-3)/Fever >100.5/ARMSTRONG Albuterol (Proventil) 2.5 mg IH Q4HRT PRN PRN Reason: Shortness Of Breath Albuterol/Ipratropium (Duoneb *Not For Prn Use*) 1 ampul IH Q6HRT [facility] Last Admin: 04/28/18 14:28 Dose: 1 ampul Documented by: Aspirin (Ecotrin) 325 mg PO QDAY [facility] Last Admin: 04/28/18 10:04 Dose: 325 mg Documented by: Atorvastatin Calcium (Lipitor) 40 mg PO QHS [facility] Last Admin: 04/27/18 22:21 Dose: 40 mg Documented by: Budesonide (Pulmicort) 0.5 mg IH Q12HRT [facility] Last Admin: 04/28/18 08:20 Dose: 0.5 mg Documented by: Carvedilol (Coreg) 3.125 mg PO BID [facility] Last Admin: 04/28/18 10:04 Dose: 3.125 mg Documented by: Docusate Sodium (Colace) 100 mg PO BID [facility] Last Admin: 04/28/18 10:04 Dose: 100 mg Documented by: Famotidine (Pepcid) 20 mg PO DAILY [facility] Last Admin: 04/28/18 10:04 Dose: 20 mg Documented by: Fluticasone Propionate (Flonase) 50 mcg NS BID [facility] Last Admin: 04/28/18 11:11 Dose: 50 mcg Documented by: Furosemide (Lasix) 40 mg IV QDAY [facility] Last Admin: 04/28/18 10:03 Dose: 40 mg Documented by: Hydralazine HCl (Apresoline) 37.5 mg PO Q8HR [facility] Last Admin: 04/28/18 13:16 Dose: 37.5 mg Documented by: Hydromorphone HCl (Dilaudid) 0.5 mg IV Q3H PRN PRN Reason: Pain , Severe (7-10) Last Admin: 04/28/18 15:10 Dose: 0.5 mg Documented by: Levofloxacin/Dextrose (Levaquin 750mg/150ml) 750 mg in 150 mls @ 100 mls/hr IV Q24HR [facility]; Protocol Last Admin: 04/28/18 10:03 Dose: 100 mls/hr Documented by: Insulin Human Lispro (Humalog) 0 unit SUB-Q ACHS [facility]; Protocol Last Admin: 04/28/18 13:17 Dose: 3 unit Documented by: Isosorbide Dinitrate (Isordil Titradose) 20 mg PO Q8HR [facility] Last Admin: 04/28/18 13:17 Dose: 20 mg Documented by: Loratadine (Claritin) 10 mg PO DAILY [facility] Last Admin: 04/28/18 10:04 Dose: 10 mg Documented by: Lorazepam (Ativan) 1 mg PO Q6H [facility] Last Admin: 04/28/18 15:39 Dose: 1 mg Documented by: Losartan Potassium (Cozaar) 100 mg PO QDAY [facility] Last Admin: 04/28/18 10:03 Dose: 100 mg Documented by: Methadone HCl (Dolophine) 5 mg PO BID [facility] Last Admin: 04/28/18 10:03 Dose: 5 mg Documented by: Methylprednisolone Sodium Succinate (Solu-Medrol) 125 mg IV Q8H [facility] Last Admin: 04/28/18 13:16 Dose: 125 mg Documented by: Montelukast Sodium (Singulair) 10 mg PO QHS [facility] Last Admin: 04/27/18 22:23 Dose: 10 mg Documented by: Ondansetron HCl (Zofran) 4 mg IV Q8H PRN PRN Reason: Nausea And Vomiting Oxycodone/Acetaminophen (Percocet 5/325) 1 tab PO Q6H PRN PRN Reason: Pain, Moderate (4-6) Last Admin: 04/28/18 10:30 Dose: 1 tab Documented by: Pseudoephedrine/Acetam/Chlorphenir (Robitussin Ac) 5 ml PO Q6H PRN PRN Reason: Cough Last Admin: 04/27/18 22:19 Dose: 5 ml Documented by: Quetiapine Fumarate (Seroquel) 200 mg PO QHS [facility] Last Admin: 04/27/18 22:21 Dose: 200 mg Documented by: Senna (Senokot) 17.2 mg PO QHS [facility] Last Admin: 04/27/18 22:22 Dose: 17.2 mg Documented by: Sodium Chloride (Sodium Chloride Flush Syringe 10 Ml) 10 ml IV BID [facility] Last Admin: 04/28/18 10:05 Dose: 10 ml Documented by: Sodium Chloride (Sodium Chloride Flush Syringe 10 Ml) 10 ml IV PRN PRN PRN Reason: LINE FLUSH Sorbitol (Sorbitol 70%) 30 ml PO BID [facility] Last Admin: 04/28/18 11:11 Dose: 30 ml Documented by: Spironolactone (Aldactone) 12.5 mg PO DAILY [facility] Last Admin: 04/28/18 10:04 Dose: 12.5 mg Documented by: Trazodone HCl (Desyrel) 50 mg PO QHS [facility] Last Admin: 04/27/18 22:21 Dose: 50 mg Documented by: Physical Examination - Physical Exam Narrative exam: Constitutional: Alert, cooperative. mild distress observed. Morbidly obese Head, Ears, Nose: Normocephalic, atraumatic. External ears, nose normal Breast: no mastitis, warmth or tenderness, soft no lumps, not lactating , no nipple drainage Eyes: Conjunctivae/corneas clear. No icterus. No ptosis. Neck: Supple, no meningeal signs Oral: dentition good, no thrush Cardiovascular: tachy Respiratory: distant BS GI: Soft, tender to palpation diffusely, normal bowel sounds Musculoskeletal: + cristina pedal edema, no cyanosis. Skin: No rash or abscess. Hem/Lymphatic: No palpable cervical or supraclavicular nodes. No lymphangitis Psych: Mood ok. Affect normal Neurological: Awake, alert, oriented. - Constitutional Vitals: Vital Signs Temp Pulse Resp BP Pulse Ox 97.5 F L 88 20 90/53 85 04/28/18 12:22 04/28/18 14:38 04/28/18 14:38 04/28/18 12:22 04/28/18 12:22 Temperature -Last 24 Hours Temperature 97.5 F Temperature 97.5 F Temperature 97.3 F Temperature 98.8 F Temperature 98.6 F Results - Labs CBC & Chem 7: 04/28/18 04:57 04/28/18 04:57 Labs: Abnormal lab results 04/27/18 04/28/18 04/28/18 Range/Units 21:51 04:57 04:57 RDW 18.6 H (13.2-15.2) % Lymph % (Auto) 11.7 L (13.4-35.0) % Lymph # 0.9 L (1.2-5.4) K/mm3 Seg Neutrophils % 81.6 H (40.0-70.0) % Chloride 97.0 L (98-107) mmol/L Carbon Dioxide 31 H (22-30) mmol/L BUN 27 H (7-17) mg/dL Glucose 206 H (65-100) mg/dL POC Glucose 230 H (70-105) 04/28/18 04/28/18 Range/Units 07:14 11:10 RDW (13.2-15.2) % Lymph % (Auto) (13.4-35.0) % Lymph # (1.2-5.4) K/mm3 Seg Neutrophils % (40.0-70.0) % Chloride (98-107) mmol/L Carbon Dioxide (22-30) mmol/L BUN (7-17) mg/dL Glucose (65-100) mg/dL POC Glucose 187 H 240 H (70-105) Assessment and Plan Cultures: 04/26/18 blood culture no growth so far 04/26/18 urine culture ESBL E coli Assessment: 47 y/o female with history of morbid obesity, CHF EF 25%, COPD s/p previous trach, morbid obesity, previous colectomy, multiple admissions in the past, known to ID due to admission on 08/21/17 due to ESBL Escherichia coli UTI +/- RLL pneumonia due to H. flu. Re-admitted on 04/26/18 due to worsening SOB and cough for 3 days associated with productive cough with white sputum. 1) Sepsis: present on admission with fever, tachycardia, elevated lactate; etio. pneumonia. UA neg. 2) Presumed pneumonia: likely Influenza vs CAP vs HAP (recent admssion). CXR right perihilar infiltrate. 3) Acute on chronic resp failure: multifactorial - CHF exacerbation +/- pneumonia 4) ESBL E coli urine colonization: UA not c/w UTI 5) CHF exacerbation Recommendations: - check influenza antigen / PCR - add tamiflu - check procal - continue levaquin for now - add po doxycycline to cover MRSA - contact isolation due to ESBL - check legionella/strep urine ag Overall prognosis guarded due to multiple admissions MD [facility] C: [phone] O: [phone] F: [phone]
[2018-04-28] MEDS: SENOKOT PO SCH (22:22)
[2018-04-28] MEDS: TAMIFLU PO SCH (22:23)
[2018-04-28] MEDS: SINGULAIR PO SCH (22:23)
[2018-04-28] MEDS: VIBRAMYCIN PO SCH (22:24)
[2018-04-28] MEDS: DESYREL PO SCH (22:26)
[2018-04-29] MEDS: SOLU-Medrol IV SCH ×3 (03:54→22:50)
[2018-04-29] MEDS: ATIVAN PO SCH ×4 (03:55→22:51)
[2018-04-29] MEDS: ISORDIL TITRADOSE PO SCH ×3 (05:05→22:53)
[2018-04-29] MEDS: APRESOLINE PO SCH ×3 (05:06→22:49)
[2018-04-29 05:42] LABS: Hematocrit 35.9 % (30.3-42.9); Hemoglobin 11.5 gm/dl (10.1-14.3); Mean Corpuscular HGB Conc 32 % (30-34); Mean Corpuscular Volume 91 fl (79-97); Platelet Count 203 K/mm3 (140-440); Red Blood Count 3.96 M/mm3 (3.65-5.03); Red Cell Distribution Width 18.8 % (13.2-15.2)
[2018-04-29 05:47] LABS: INR 0.98 (0.87-1.13)
[2018-04-29 06:02] LABS: BUN/Creatinine Ratio 36; Blood Urea Nitrogen 29 mg/dL (7-17); Calcium 8.7 mg/dL (8.4-10.2); Hemolysis Index 21
[2018-04-29] MEDS: DOLOPHINE PO SCH ×3 (08:37→22:53)
[2018-04-29] MEDS: PULMICORT IH SCH ×2 (09:22→20:12)
[2018-04-29] MEDS: DUONEB *Not for PRN Use IH SCH ×3 (09:22→20:12)
[2018-04-29] MEDS: LEVAQUIN 750MG/150ML 750 MG/150 ML BAG IV SCH (10:14)
[2018-04-29] MEDS: COLACE PO SCH ×2 (11:00→22:51)
[2018-04-29] MEDS: COREG PO SCH ×2 (11:00→22:55)
[2018-04-29] MEDS: PEPCID PO SCH (11:01)
[2018-04-29] MEDS: ECOTRIN PO SCH (11:01)
[2018-04-29] MEDS: ALDACTONE PO SCH (11:01)
[2018-04-29] MEDS: COZAAR PO SCH (11:03)
[2018-04-29] MEDS: CLARITIN PO SCH (11:03)
[2018-04-29] MEDS: VIBRAMYCIN PO SCH ×2 (11:03→22:51)
[2018-04-29] MEDS: HumaLOG SUB-Q SCH ×4 (11:04→22:54)
[2018-04-29] MEDS: FLONASE NS SCH ×2 (11:05→22:47)
[2018-04-29] MEDS: SODIUM CHLORIDE FLUSH SYRINGE 10 ML IV SCH ×2 (11:06→22:52)
--- NOTE | 2018-04-29 11:10 | Progress Note ---
Addendum entered and electronically signed by ELSA HAIRSTON MD 04/29/18 11:15: Patient has declined the recommendation for a right and left heart catheterizati on, we will therefore cancel the planned procedure and continue a conservative approach with medical therapy for nonischemic cardiomyopathy and chronic systolic heart failure, as well as further aggressive pulmonary evaluation and management of chronic lung disease. Original Note: Assessment and Plan Acute respiratory failure Decompensated heart failure COPD on oxygen as an outpatient Dilated Nonischemic Cardiomyopathy LHC at [facility] in 2013: no significant CAD, EF 45% moderately decrease LVEF 20-25% by echo 08/2017 Chronic elevated troponin Recommend: Fluid/sodium restriction. Continue heart failure management to include diuretics, afterload agents, beta blockers and oral antiplatelet therapy. Subjective Date of service: 04/29/18 Interval history: Patient declines to have a cardiac cath again today. No distress noted. Objective Vital Signs Temp Pulse Pulse Pulse Pulse Pulse Resp 04/29/18 09:32 88 04/29/18 09:22 86 04/29/18 05:06 74 04/29/18 05:05 74 04/29/18 04:57 97.4 F L 74 20 04/29/18 00:50 86 25 H 04/29/18 00:16 97.9 F 88 18 04/28/18 23:02 18 04/28/18 23:00 04/28/18 22:25 89 89 89 18 04/28/18 22:24 89 04/28/18 22:23 89 18 04/28/18 21:00 89 04/28/18 20:48 87 04/28/18 20:38 98.0 F 83 22 04/28/18 19:06 90 04/28/18 17:02 97.4 F L 80 22 04/28/18 14:38 88 04/28/18 14:29 88 88 04/28/18 12:22 97.5 F L 93 H 14 Resp Resp Resp BP Pulse Ox 04/29/18 09:32 20 04/29/18 09:22 20 93 04/29/18 05:06 134/84 04/29/18 05:05 134/84 04/29/18 04:57 134/84 93 04/29/18 00:50 94 04/29/18 00:16 140/95 93 04/28/18 23:02 04/28/18 23:00 18 04/28/18 22:25 124/80 94 04/28/18 22:24 124/80 04/28/18 22:23 124/80 04/28/18 21:00 20 04/28/18 20:48 20 04/28/18 20:38 124/80 94 04/28/18 19:06 04/28/18 17:02 133/81 94 04/28/18 14:38 20 04/28/18 14:29 20 20 04/28/18 12:22 90/53 85 - Physical Examination General: No Apparent Distress HEENT: Positive: PERRL Cardiac: Positive: Reg Rate and Rhythm Lungs: Positive: Decreased Breath Sounds - Labs and Meds Coagulation 04/29/18 Range/Units 04:57 PT 13.4 (12.2-14.9) Sec. INR 0.98 (0.87-1.13) CBC 04/29/18 Range/Units 04:57 WBC 8.7 (4.5-11.0) K/mm3 RBC 3.96 (3.65-5.03) M/mm3 Hgb 11.5 (10.1-14.3) gm/dl Hct 35.9 (30.3-42.9) % Plt Count 203 (140-440) K/mm3 Comprehensive Metabolic Panel 04/29/18 Range/Units 04:57 Sodium 140 (137-145) mmol/L Potassium 4.6 (3.6-5.0) mmol/L Chloride 96.1 L (98-107) mmol/L Carbon Dioxide 33 H (22-30) mmol/L BUN 29 H (7-17) mg/dL Creatinine 0.8 (0.7-1.2) mg/dL Glucose 252 H (65-100) mg/dL Calcium 8.7 (8.4-10.2) mg/dL
[2018-04-29] MEDS: SORBITOL 70% PO SCH ×2 (11:11→22:52)
[2018-04-29] MEDS: TAMIFLU PO SCH ×2 (11:12→22:51)
--- NOTE | 2018-04-29 11:53 | Progress Note ---
Assessment and Plan Assessment and plan: Sepsis. Present on admission manifested with fever, tachycardia, elevated lact ate and pneumonia. Continue antibiotics per ID. Presumed pneumonia. Etiology likely Influenza vs CAP vs HAP (recent admssion). CXR right perihilar infiltrate. Acute on chronic hypoxemic respiratory failure. Continue BiPAP as clinically indicated. Patient is DO NOT INTUBATE. Etiology is multifactorial secondary to decompensated heart failure, COPD exacerbation and probable SHANIQUE/OHS. Acute COPD exacerbation. Nebulizer treatments IV Solu-Medrol and IV antibiotics Pulmicort inhalation twice a day Acute on chronic systolic heart failure. Cardiology recommends right left heart catheterization Dilated Nonischemic Cardiomyopathy LHC at [facility] in 2013: no significant CAD, EF 45% moderately decrease LVEF 20-25% by echo 08/2017 Cardiology . Acute kidney injury. Gentle hydration and follow-up BMP. Hyperlipidemia. Since the statins. Tobacco abuse. Patient reports smoking since age 14. Counseling on smoking cessation. Hypertension. Cont. antihypertensive medications. Diabetes mellitus type 2. Continue home insulin and coverage Hemoglobin A1c is 7.9. History Interval history: 47-year-old female comes in for severe shortness of breath of 2 days' duration. Patient has history of nonischemic cardiomyopathy, COPD and chronic respiratory failure. Patient has been getting worsening shortness of breath in spite of using the nebulizer treatments. Cough productive of mucoid sputum. Orthopnea present. Shortness of breath on minimal exertion. No fever or chills. No PND attacks. No recent travel. Patient apparently has a ejection fraction of 45% by echocardiogram done in [place] which is decreased to 20-25% recently by echocardiogram. Patient is a resident of local [facility] Hospitalist Physical - Constitutional Vitals: Temp Pulse Resp BP Pulse Ox 97.4 F L 88 20 134/84 93 04/29/18 04:57 04/29/18 09:32 04/29/18 09:32 04/29/18 05:06 04/29/18 09:22 General appearance: Present: no acute distress, obese - EENT Eyes: Present: PERRL, EOM intact ENT: hearing intact, clear oral mucosa, dentition normal - Neck Neck: Present: supple, normal ROM - Respiratory Respiratory effort: normal Respiratory: bilateral: CTA - Cardiovascular Rhythm: regular Heart Sounds: Present: S1 & S2. Absent: gallop, rub - Extremities Extremities: no ischemia, No edema, Full ROM - Abdominal General gastrointestinal: soft, non-tender, non-distended, normal bowel sounds - Integumentary Integumentary: Present: clear, warm, dry - Neurologic Neurologic: CNII-XII intact, moves all extremities Results - Labs CBC & Chem 7: 04/29/18 04:57 04/29/18 04:57 Labs: Laboratory Last Values WBC 8.7 K/mm3 (4.5-11.0) 04/29/18 04:57 RBC 3.96 M/mm3 (3.65-5.03) 04/29/18 04:57 Hgb 11.5 gm/dl (10.1-14.3) 04/29/18 04:57 Hct 35.9 % (30.3-42.9) 04/29/18 04:57 MCV 91 fl (79-97) 04/29/18 04:57 MCH 29 pg (28-32) 04/29/18 04:57 MCHC 32 % (30-34) 04/29/18 04:57 RDW 18.8 % (13.2-15.2) H 04/29/18 04:57 Plt Count 203 K/mm3 (140-440) 04/29/18 04:57 Lymph % (Auto) 11.7 % (13.4-35.0) L 04/28/18 04:57 Wilkin % (Auto) 6.6 % (0.0-7.3) 04/28/18 04:57 Eos % (Auto) 0.0 % (0.0-4.3) 04/28/18 04:57 Baso % (Auto) 0.1 % (0.0-1.8) 04/28/18 04:57 Lymph # 0.9 K/mm3 (1.2-5.4) L 04/28/18 04:57 [place] # 0.5 K/mm3 (0.0-0.8) 04/28/18 04:57 Eos # 0.0 K/mm3 (0.0-0.4) 04/28/18 04:57 Baso # 0.0 K/mm3 (0.0-0.1) 04/28/18 04:57 Seg Neutrophils % 81.6 % (40.0-70.0) H 04/28/18 04:57 Seg Neutrophils # 6.4 K/mm3 (1.8-7.7) 04/28/18 04:57 PT 13.4 Sec. (12.2-14.9) 04/29/18 04:57 INR 0.98 (0.87-1.13) 04/29/18 04:57 APTT 30.9 Sec. (24.2-36.6) 04/26/18 11:19 POC ABG pH 7.316 (7.35-7.45) L 04/26/18 15:32 POC ABG pCO2 68.5 (35-45) H 04/26/18 15:32 POC ABG pO2 63 (80-105) L 04/26/18 15:32 POC ABG HCO3 35.0 04/26/18 15:32 POC ABG Total CO2 37 04/26/18 15:32 POC ABG O2 Sat 89 04/26/18 15:32 POC ABG Base Excess 9 04/26/18 15:32 VBG pH 7.292 (7.320-7.420) L 04/26/18 11:19 FiO2 45 % 04/26/18 15:32 Sodium 140 mmol/L (137-145) 04/29/18 04:57 Potassium 4.6 mmol/L (3.6-5.0) 04/29/18 04:57 Chloride 96.1 mmol/L (98-107) L 04/29/18 04:57 Carbon Dioxide 33 mmol/L (22-30) H 04/29/18 04:57 Anion Gap 16 mmol/L 04/29/18 04:57 BUN 29 mg/dL (7-17) H 04/29/18 04:57 Creatinine 0.8 mg/dL (0.7-1.2) 04/29/18 04:57 Estimated GFR > 60 ml/min 04/29/18 04:57 BUN/Creatinine Ratio 36 % 04/29/18 04:57 Glucose 252 mg/dL (65-100) H 04/29/18 04:57 POC Glucose 237 (70-105) H 04/29/18 05:01 Hemoglobin A1c 7.9 % (4-6) H 04/27/18 05:23 Lactic Acid 0.90 mmol/L (0.7-2.0) 04/26/18 15:50 Calcium 8.7 mg/dL (8.4-10.2) 04/29/18 04:57 Total Bilirubin 0.20 mg/dL (0.1-1.2) 04/27/18 05:23 AST 19 units/L (5-40) 04/27/18 05:23 ALT 22 units/L (7-56) 04/27/18 05:23 Alkaline Phosphatase 76 units/L (35-129) 04/27/18 05:23 Total Creatine Kinase 131 units/L (30-135) 04/26/18 11:30 Troponin T 0.175 ng/mL (0.00-0.029) H* 04/26/18 11:19 C-Reactive Protein 1.10 mg/dL (0.00-1.30) 04/28/18 17:34 Total Protein 6.1 g/dL (6.3-8.2) L 04/27/18 05:23 Albumin 3.8 g/dL (3.9-5) L 04/27/18 05:23 Albumin/Globulin Ratio 1.7 % 04/27/18 05:23 Triglycerides 62 mg/dL (2-149) 04/26/18 11:19 Cholesterol 110 mg/dL (50-199) 04/26/18 11:19 LDL Cholesterol Direct 51 mg/dL (50-130) 04/26/18 11:19 HDL Cholesterol 52 mg/dL (40-59) 04/26/18 11:19 Cholesterol/HDL Ratio 2.11 % 04/26/18 11:19 Urine Color Yellow (Yellow) 04/26/18 12:05 Urine Turbidity Slightly-cloudy (Clear) 04/26/18 12:05 Urine pH 5.0 (5.0-7.0) 04/26/18 12:05 Ur Specific [place] 1.006 (1.003-1.030) 04/26/18 12:05 Urine Protein <15 mg/dl mg/dL (Negative) 04/26/18 12:05 Urine Glucose (UA) Neg mg/dL (Negative) 04/26/18 12:05 Urine Ketones Neg mg/dL (Negative) 04/26/18 12:05 Urine Blood Neg (Negative) 04/26/18 12:05 Urine Nitrite Neg (Negative) 04/26/18 12:05 Urine Bilirubin Neg (Negative) 04/26/18 12:05 Urine Urobilinogen < 2.0 mg/dL (<2.0) 04/26/18 12:05 Ur Leukocyte Esterase Tr (Negative) 04/26/18 12:05 Urine WBC (Auto) 3.0 /HPF (0.0-6.0) 04/26/18 12:05 Urine RBC (Auto) 6.0 /HPF (0.0-6.0) 04/26/18 12:05 Urine Bacteria (Auto) 2+ /HPF (Negative) 04/26/18 12:05 Salicylates < 0.3 mg/dL (2.8-20.0) L 04/26/18 11:30 Acetaminophen < 5.0 ug/mL (10.0-30.0) L 04/26/18 11:30
[2018-04-29] MEDS: LASIX IV SCH (13:21)
--- NOTE | 2018-04-29 14:04 | Progress Note ---
Assessment and Plan Acute on chronic hypoxemic hypercapnic respiratory failure. Bilateral moderate volume atelectasis. Bilateral pneumonia. Acute COPD exacerbation Acute on chronic systolic CHF exacerbation, non-ischemic NSTEMI Psychizoaffective disorder Elevated D-dimer. Obstructive sleep apnea. History of hypertension. History of bipolar disorder. Tobacco use disorder. - continue supplemental oxygen to keep O2 sats > 90% - begin systemic steroid taper - continue inhaled corticosteroids - add LABA (Brovana) - VTE and stress ulcer prophylaxis - continue maintenance diuresis for CHF - Continue empiric antibiotics to complete course - continue SSI for glycemic control with target blood glucose <180mg/dL - continue cardio-protective measures - Mobility program for pressure ulcer prophylaxis - continue PT/OT as tolerated - tobacco abstinence strongly counseled - continue other care per attending / other consultants ... explained reason she cannot get extra cookies for better diabetic control issues ... re-evaluate in am & prn Subjective Date of service: 04/29/18 Principal diagnosis: Acute COPD exacerbation; Acute on chronic systolic CHF exacerbation Interval history: Patient is seen today for: Acute on chronic hypoxemic hypercapnic respiratory failure; Bilateral pneumonia; Acute COPD exacerbation; Acute on chronic systolic CHF exacerbation Seen and examined at bedside; 24hour events reviewed; nursing and respiratory care staff consulted; no adverse overnight events reported to me; resting peacefully is bed; states her breathing is ok; angry that she can not get "2 bags of chips and two bags of cookies"; No N/V/F/C Objective Vital Signs - 12hr 04/29/18 04/29/18 04/29/18 04:57 05:05 05:06 Temperature 97.4 F L Pulse Rate 74 74 74 Pulse Rate [ Anterior Bilateral Throughout] Respiratory 20 Rate Respiratory Rate [Anterior Bilateral Throughout] Blood Pressure 134/84 134/84 134/84 O2 Sat by Pulse 93 Oximetry 04/29/18 04/29/18 09:22 09:32 Temperature Pulse Rate Pulse Rate [ 86 88 Anterior Bilateral Throughout] Respiratory Rate Respiratory 20 20 Rate [Anterior Bilateral Throughout] Blood Pressure O2 Sat by Pulse 93 Oximetry Constitutional: no acute distress, alert, other (middle aged AAF, normocephalic and atraumatic with increased respiratory effort at rest) Eyes: non-icteric ENT: oropharynx moist, other (mallampati 3) Neck: supple, no JVD, other (no thyromegaly) Effort: mildly labored Ascultation: Bilateral: diminished breath sounds, rhonchi Percussion: Bilateral: not dull Cardiovascular: regular rate and rhythm Gastrointestinal: normoactive bowel sounds, soft, non-tender, non-distended Integumentary: normal Extremities: no cyanosis, no edema, pulses normal, no ischemia or petechiae Neurologic: non-focal exam, pupils equal and round, CN II-XII normal, motor strength normal and Psychiatric: mood appropriate, affect normal CBC and BMP: 04/30/18 05:04 04/30/18 05:04 ABG, PT/INR, D-dimer: ABG POC ABG pH 7.316 (7.35-7.45) L 04/26/18 15:32 POC ABG pCO2 68.5 (35-45) H 04/26/18 15:32 POC ABG pO2 63 (80-105) L 04/26/18 15:32 POC ABG HCO3 35.0 04/26/18 15:32 POC ABG Total CO2 37 04/26/18 15:32 POC ABG O2 Sat 89 04/26/18 15:32 PT/INR, D-dimer PT 13.4 Sec. (12.2-14.9) 04/29/18 04:57 INR 0.98 (0.87-1.13) 04/29/18 04:57 Abnormal lab findings: Abnormal Labs 04/26/18 04/26/18 04/26/18 11:19 11:19 11:19 RDW 19.3 H Lymph % (Auto) [place] % (Auto) 10.2 H Lymph # [place] # 0.9 H Seg Neutrophils % POC ABG pH POC ABG pCO2 POC ABG pO2 VBG pH Sodium 136 L Potassium 5.6 H Chloride 96.9 L Carbon Dioxide BUN Creatinine 1.3 H Glucose 113 H POC Glucose Hemoglobin A1c Lactic Acid 2.10 H* Calcium Troponin T Total Protein Albumin Salicylates Acetaminophen 04/26/18 04/26/18 04/26/18 11:19 11:19 11:30 RDW Lymph % (Auto) [place] % (Auto) Lymph # [place] # Seg Neutrophils % POC ABG pH POC ABG pCO2 POC ABG pO2 VBG pH 7.292 L Sodium Potassium Chloride Carbon Dioxide BUN Creatinine Glucose POC Glucose Hemoglobin A1c Lactic Acid Calcium Troponin T 0.175 H* Total Protein Albumin Salicylates < 0.3 L Acetaminophen 04/26/18 04/26/18 04/26/18 11:30 13:14 15:32 RDW Lymph % (Auto) [place] % (Auto) Lymph # [place] # Seg Neutrophils % POC ABG pH 7.277 L 7.316 L POC ABG pCO2 70.5 H 68.5 H POC ABG pO2 27 L 63 L VBG pH Sodium Potassium Chloride Carbon Dioxide BUN Creatinine Glucose POC Glucose Hemoglobin A1c Lactic Acid Calcium Troponin T Total Protein Albumin Salicylates Acetaminophen < 5.0 L 04/26/18 04/26/18 04/27/18 17:56 21:56 05:19 RDW Lymph % (Auto) [place] % (Auto) Lymph # [place] # Seg Neutrophils % POC ABG pH POC ABG pCO2 POC ABG pO2 VBG pH Sodium Potassium Chloride Carbon Dioxide BUN Creatinine Glucose POC Glucose 119 H 164 H 184 H Hemoglobin A1c Lactic Acid Calcium Troponin T Total Protein Albumin Salicylates Acetaminophen 04/27/18 04/27/18 04/27/18 05:23 05:23 05:23 RDW 18.4 H Lymph % (Auto) [place] % (Auto) Lymph # 1.1 L [place] # Seg Neutrophils % 75.9 H POC ABG pH POC ABG pCO2 POC ABG pO2 VBG pH Sodium 136 L Potassium Chloride 94.8 L Carbon Dioxide BUN 21 H Creatinine Glucose 183 H POC Glucose Hemoglobin A1c 7.9 H Lactic Acid Calcium 8.2 L Troponin T Total Protein 6.1 L Albumin 3.8 L Salicylates Acetaminophen 04/27/18 04/27/18 04/27/18 11:45 15:42 21:51 RDW Lymph % (Auto) [place] % (Auto) Lymph # [place] # Seg Neutrophils % POC ABG pH POC ABG pCO2 POC ABG pO2 VBG pH Sodium Potassium Chloride Carbon Dioxide BUN Creatinine Glucose POC Glucose 184 H 108 H 230 H Hemoglobin A1c Lactic Acid Calcium Troponin T Total Protein Albumin Salicylates Acetaminophen 04/28/18 04/28/18 04/28/18 04:57 04:57 07:14 RDW 18.6 H Lymph % (Auto) 11.7 L [place] % (Auto) Lymph # 0.9 L [place] # Seg Neutrophils % 81.6 H POC ABG pH POC ABG pCO2 POC ABG pO2 VBG pH Sodium Potassium Chloride 97.0 L Carbon Dioxide 31 H BUN 27 H Creatinine Glucose 206 H POC Glucose 187 H Hemoglobin A1c Lactic Acid Calcium Troponin T Total Protein Albumin Salicylates Acetaminophen 04/28/18 04/28/18 04/28/18 11:10 17:06 20:53 RDW Lymph % (Auto) [place] % (Auto) Lymph # [place] # Seg Neutrophils % POC ABG pH POC ABG pCO2 POC ABG pO2 VBG pH Sodium Potassium Chloride Carbon Dioxide BUN Creatinine Glucose POC Glucose 240 H 189 H 236 H Hemoglobin A1c Lactic Acid Calcium Troponin T Total Protein Albumin Salicylates Acetaminophen 04/29/18 04/29/18 04/29/18 04:57 04:57 05:01 RDW 18.8 H Lymph % (Auto) [place] % (Auto) Lymph # [place] # Seg Neutrophils % POC ABG pH POC ABG pCO2 POC ABG pO2 VBG pH Sodium Potassium Chloride 96.1 L Carbon Dioxide 33 H BUN 29 H Creatinine Glucose 252 H POC Glucose 237 H Hemoglobin A1c Lactic Acid Calcium Troponin T Total Protein Albumin Salicylates Acetaminophen 04/29/18 12:21 RDW Lymph % (Auto) [place] % (Auto) Lymph # [place] # Seg Neutrophils % POC ABG pH POC ABG pCO2 POC ABG pO2 VBG pH Sodium Potassium Chloride Carbon Dioxide BUN Creatinine Glucose POC Glucose 210 H Hemoglobin A1c Lactic Acid Calcium Troponin T Total Protein Albumin Salicylates Acetaminophen Chest x-ray: image reviewed (mild interstitial edema pattern) Allied health notes reviewed: nursing
--- NOTE | 2018-04-29 14:48 | Progress Note ---
Assessment and Plan Cultures: 04/26/18 blood culture no growth so far 04/26/18 urine culture ESBL E coli Assessment: 47 y/o female with history of morbid obesity, CHF EF 25%, COPD s/p previous trach, morbid obesity, previous colectomy, multiple admissions in the past, known to ID due to admission on 08/21/17 due to ESBL Escherichia coli UTI +/- RLL pneumonia due to H. flu. Re-admitted on 04/26/18 due to worsening SOB and cough for 3 days associated with productive cough with white sputum. 1) Sepsis: improving, fever resolved; etio. pneumonia. UA neg. Blood cx negative. 2) Presumed pneumonia: likely Influenza vs CAP vs HAP (recent admssion). CXR right perihilar infiltrate. 3) Acute on chronic resp failure: multifactorial - CHF exacerbation +/- pneumonia 4) ESBL E coli urine colonization: UA not c/w UTI 5) CHF exacerbation Recommendations: - f/u influenza antigen / PCR - continue tamiflu D2 of 5 - f/u procal - continue levaquin D3 of 5 - continue doxycycline D2 to cover empirically for MRSA pneumonia - contact isolation due to ESBL - f/u legionella/strep urine ag Overall prognosis guarded due to multiple admissions Dr Guy will round tomorrow. Kristin Jerry MD [facility] C: [phone] O: [phone] F: [phone] Subjective Date of service: 04/29/18 Principal diagnosis: fever Interval history: Patient reports feeling better. No fever for >3 days. Breathing is better. Wants to eat. Objective - Exam Narrative Exam: Constitutional: Alert, cooperative. mild distress observed. Morbidly obese Head, Ears, Nose: Normocephalic, atraumatic. External ears, nose normal Breast: no mastitis, warmth or tenderness, soft no lumps, not lactating , no nipple drainage Eyes: Conjunctivae/corneas clear. No icterus. No ptosis. Neck: Supple, no meningeal signs Oral: dentition good, no thrush Cardiovascular: tachy Respiratory: distant BS GI: Soft, tender to palpation diffusely, normal bowel sounds Musculoskeletal: + cristina pedal edema, no cyanosis. Skin: No rash or abscess. Hem/Lymphatic: No palpable cervical or supraclavicular nodes. No lymphangitis Psych: Mood ok. Affect normal Neurological: Awake, alert, oriented. - Constitutional Vitals: Vital Signs Temp Pulse Resp BP Pulse Ox 97.4 F L 89 20 117/64 92 04/29/18 13:09 04/29/18 13:59 04/29/18 13:59 04/29/18 13:09 04/29/18 13:09 Temperature -Last 24 Hours Temperature 97.4 F Temperature 97.5 F Temperature 97.4 F Temperature 97.9 F Temperature 98.0 F Temperature 97.4 F - Labs CBC & Chem 7: 04/29/18 04:57 04/29/18 04:57 Labs: Abnormal lab results 04/28/18 04/28/18 04/29/18 Range/Units 17:06 20:53 04:57 RDW 18.8 H (13.2-15.2) % Chloride (98-107) mmol/L Carbon Dioxide (22-30) mmol/L BUN (7-17) mg/dL Glucose (65-100) mg/dL POC Glucose 189 H 236 H (70-105) 04/29/18 04/29/18 04/29/18 Range/Units 04:57 05:01 12:21 RDW (13.2-15.2) % Chloride 96.1 L (98-107) mmol/L Carbon Dioxide 33 H (22-30) mmol/L BUN 29 H (7-17) mg/dL Glucose 252 H (65-100) mg/dL POC Glucose 237 H 210 H (70-105)
[2018-04-29] MEDS: ROBITUSSIN AC PO PRN (16:12)
[2018-04-29] MEDS: PERCOCET 5/325 PO PRN (17:26)
[2018-04-29] MEDS: DESYREL PO SCH (22:51)
[2018-04-29] MEDS: SENOKOT PO SCH (22:52)
[2018-04-29] MEDS: SINGULAIR PO SCH (22:53)
[2018-04-30] MEDS: APRESOLINE PO SCH ×3 (05:18→22:38)
[2018-04-30] MEDS: SOLU-Medrol IV SCH ×3 (05:18→20:36)
[2018-04-30] MEDS: ATIVAN PO SCH ×4 (05:19→22:35)
[2018-04-30] MEDS: ISORDIL TITRADOSE PO SCH ×3 (05:19→22:38)
[2018-04-30] MEDS: SODIUM CHLORIDE FLUSH SYRINGE 10 ML IV PRN ×2 (05:20→20:36)
[2018-04-30 05:33] LABS: Hematocrit 36.3 % (30.3-42.9); Hemoglobin 11.6 gm/dl (10.1-14.3); Lymphocytes % (Auto) 11.9 % (13.4-35.0); Mean Corpuscular HGB Conc 32 % (30-34); Mean Corpuscular Volume 91 fl (79-97); Monocytes # (Auto) 0.4 K/mm3 (0.0-0.8); Monocytes % (Auto) 5.4 % (0.0-7.3); Platelet Count 199 K/mm3 (140-440); Red Blood Count 4.01 M/mm3 (3.65-5.03); Red Cell Distribution Width 18.1 % (13.2-15.2)
[2018-04-30 05:54] LABS: BUN/Creatinine Ratio 36; Blood Urea Nitrogen 32 mg/dL (7-17); Calcium 8.8 mg/dL (8.4-10.2); Hemolysis Index 13
[2018-04-30] MEDS: HumaLOG SUB-Q SCH ×4 (08:00→22:35)
[2018-04-30] MEDS: DUONEB *Not for PRN Use IH SCH ×3 (09:35→20:30)
[2018-04-30] MEDS: PULMICORT IH SCH ×2 (09:35→20:30)
--- NOTE | 2018-04-30 09:54 | Progress Note ---
Assessment and Plan Cultures: 04/26/18 blood culture no growth so far 04/26/18 urine culture ESBL E coli 04/28/18 sputum culture: negative Assessment: 47 y/o female with history of morbid obesity, CHF EF 25%, COPD s/p previous trach, morbid obesity, previous colectomy, multiple admissions in the past, known to ID due to admission on 08/21/17 due to ESBL Escherichia coli UTI +/- RLL pneumonia due to H. flu. Re-admitted on 04/26/18 due to worsening SOB and cough for 3 days associated with productive cough with white sputum. 1) Sepsis: improving, fever resolved; etio. pneumonia. UA neg. Blood cx negative. 2) Presumed pneumonia: likely Influenza vs CAP vs HAP (recent admssion). CXR right perihilar infiltrate. 3) Acute on chronic resp failure: multifactorial - CHF exacerbation +/- pneumonia 4) ESBL E coli urine colonization: UA not c/w UTI 5) CHF exacerbation Recommendations: - f/u influenza antigen / PCR - continue tamiflu D3 of 5 - f/u procal - continue levaquin D4 of 5 - continue doxycycline D3 to cover empirically for MRSA pneumonia - contact isolation due to ESBL - f/u legionella/strep urine ag Dr. Jerry will be investigation clerk this weekend, she can be reached at [phone]. Xuan Weiss NP [facility] M: [phone] O:[phone] Subjective Date of service: 04/30/18 Principal diagnosis: fever Interval history: Patient seen and examined. Agitated, stated that she was ready to go home and did want to talk. Objective - Exam Narrative Exam: Constitutional: Alert, agitated, slightly combative. mild distress observed. Morbidly obese Head, Ears, Nose: Normocephalic, atraumatic. External ears, nose normal Breast: no mastitis, warmth or tenderness, soft no lumps, not lactating , no nipple drainage Eyes: Conjunctivae/corneas clear. No icterus. No ptosis. Neck: Supple, no meningeal signs Oral: dentition good, no thrush Cardiovascular: S1, S2 normal Respiratory: distant BS GI: exam limited Musculoskeletal: exam limited Skin: No rash or abscess. Hem/Lymphatic: No palpable cervical or supraclavicular nodes. No lymphangitis Psych: Mood agitated. Neurological: Awake, alert, oriented. - Constitutional Vitals: Vital Signs Temp Pulse Resp BP Pulse Ox 98.2 F 68 20 144/92 96 04/30/18 08:10 04/30/18 08:10 04/30/18 08:10 04/30/18 08:10 04/30/18 08:10 Temperature -Last 24 Hours Temperature 98.2 F Temperature 98.1 F Temperature 98.2 F Temperature 98.1 F Temperature 98.3 F Temperature 97.4 F - Labs CBC & Chem 7: 04/30/18 05:04 04/30/18 05:04 Labs: Abnormal lab results 04/29/18 04/29/18 04/29/18 Range/Units 12:21 16:42 20:34 RDW (13.2-15.2) % Lymph % (Auto) (13.4-35.0) % Lymph # (1.2-5.4) K/mm3 Seg Neutrophils % (40.0-70.0) % Chloride (98-107) mmol/L Carbon Dioxide (22-30) mmol/L BUN (7-17) mg/dL Glucose (65-100) mg/dL POC Glucose 210 H 258 H 226 H (70-105) 04/30/18 04/30/18 04/30/18 Range/Units 05:04 05:04 05:47 RDW 18.1 H (13.2-15.2) % Lymph % (Auto) 11.9 L (13.4-35.0) % Lymph # 1.0 L (1.2-5.4) K/mm3 Seg Neutrophils % 82.7 H (40.0-70.0) % Chloride 95.6 L (98-107) mmol/L Carbon Dioxide 35 H (22-30) mmol/L BUN 32 H (7-17) mg/dL Glucose 225 H (65-100) mg/dL POC Glucose 193 H (70-105)
--- NOTE | 2018-04-30 11:41 | Progress Note ---
Addendum entered and electronically signed by PILLO NICKERSON MD 04/30/18 11:49: Agree with CHAIN MAKER assessment and plan Patient refused coronary angio Patient is HD and clinically stable Patient on GDMT for heart failure No further cardiac intervention Outpatient follow-up Will sign off Original Note: Assessment and Plan Acute respiratory failure Decompensated heart failure UTI COPD on oxygen as an outpatient Dilated Nonischemic Cardiomyopathy LHC at [facility] in 2013: no significant CAD, EF 45% moderately decrease LVEF 20-25% by echo 08/2017 Chronic elevated troponin Recommend: Fluid/sodium restriction. Continue heart failure management to include diuretics, afterload agents, beta blockers and oral antiplatelet therapy. Otherwise, conservative cardiac management. Subjective Date of service: 04/30/18 Principal diagnosis: fever Interval history: Patient has no complaints. Reports her breathing is stable. No cardiac events on tele overnight. Objective Vital Signs Temp Pulse Pulse Resp Resp BP Pulse Ox 04/30/18 10:00 93 04/30/18 09:48 94 H 20 04/30/18 09:35 91 H 20 04/30/18 08:10 98.2 F 68 20 144/92 96 04/30/18 05:19 68 106/55 04/30/18 05:18 106/55 04/30/18 04:00 75 04/30/18 03:36 98.1 F 72 20 106/55 96 04/29/18 23:35 70 18 92 04/29/18 22:55 71 133/86 04/29/18 22:53 71 133/86 04/29/18 22:49 71 133/66 04/29/18 22:22 98.2 F 80 16 142/85 92 04/29/18 22:00 91 H 04/29/18 20:26 96 H 20 04/29/18 20:25 92 04/29/18 20:13 100 H 20 04/29/18 19:59 98.1 F 87 18 133/86 100 04/29/18 16:37 98.3 F 97 H 16 129/81 76 L 04/29/18 14:10 97 H 20 04/29/18 13:59 89 20 04/29/18 13:09 97.4 F L 96 H 16 117/64 92 - Physical Examination General: No Apparent Distress HEENT: Positive: PERRL Cardiac: Positive: Reg Rate and Rhythm Lungs: Positive: Decreased Breath Sounds - Labs and Meds CBC 04/30/18 Range/Units 05:04 WBC 8.0 (4.5-11.0) K/mm3 RBC 4.01 (3.65-5.03) M/mm3 Hgb 11.6 (10.1-14.3) gm/dl Hct 36.3 (30.3-42.9) % Plt Count 199 (140-440) K/mm3 Lymph # 1.0 L (1.2-5.4) K/mm3 [place] # 0.4 (0.0-0.8) K/mm3 Eos # 0.0 (0.0-0.4) K/mm3 Baso # 0.0 (0.0-0.1) K/mm3 Comprehensive Metabolic Panel 04/30/18 Range/Units 05:04 Sodium 141 (137-145) mmol/L Potassium 4.8 (3.6-5.0) mmol/L Chloride 95.6 L (98-107) mmol/L Carbon Dioxide 35 H (22-30) mmol/L BUN 32 H (7-17) mg/dL Creatinine 0.9 (0.7-1.2) mg/dL Glucose 225 H (65-100) mg/dL Calcium 8.8 (8.4-10.2) mg/dL
[2018-04-30] MEDS: LEVAQUIN 750MG/150ML 750 MG/150 ML BAG IV SCH (12:22)
[2018-04-30] MEDS: FLONASE NS SCH ×2 (12:23→22:40)
[2018-04-30] MEDS: SORBITOL 70% PO SCH ×2 (12:23→22:34)
--- NOTE | 2018-04-30 12:23 | Progress Note ---
Assessment and Plan Assessment and plan: Sepsis. Present on admission manifested with fever, tachycardia, elevated lact ate and pneumonia. Continue antibiotics per ID. Presumed pneumonia. Etiology likely Influenza vs CAP vs HAP (recent admssion). CXR right perihilar infiltrate. Acute on chronic hypoxemic respiratory failure. Continue BiPAP as clinically indicated. Patient is DO NOT INTUBATE. Etiology is multifactorial secondary to decompensated heart failure, COPD exacerbation and probable SHANIQUE/OHS. Acute COPD exacerbation. Nebulizer treatments IV Solu-Medrol and IV antibiotics Pulmicort inhalation twice a day Acute on chronic systolic heart failure. Cardiology recommends right left heart catheterization but patient refused. Dilated Nonischemic Cardiomyopathy LHC at [facility] in 2013: no significant CAD, EF 45% moderately decrease LVEF 20-25% by echo 08/2017 Cardiology . Acute kidney injury. Gentle hydration and follow-up BMP. Hyperlipidemia. Since the statins. Tobacco abuse. Patient reports smoking since age 14. Counseling on smoking cessation. Hypertension. Cont. antihypertensive medications. Diabetes mellitus type 2. Continue home insulin and coverage Hemoglobin A1c is 7.9. History Interval history: 47-year-old female comes in for severe shortness of breath of 2 days' duration. Patient has history of nonischemic cardiomyopathy, COPD and chronic respiratory failure. Patient has been getting worsening shortness of breath in spite of using the nebulizer treatments. Cough productive of mucoid sputum. Orthopnea present. Shortness of breath on minimal exertion. No fever or chills. No PND attacks. No recent travel. Patient apparently has a ejection fraction of 45% by echocardiogram done in [place] which is decreased to 20-25% recently by echocardiogram. [facility] is a [facility] The patient refused coronary angiogram. Hospitalist Physical - Constitutional Vitals: Temp Pulse Resp BP Pulse Ox 98.2 F 94 H 20 144/92 93 04/30/18 08:10 04/30/18 09:48 04/30/18 09:48 04/30/18 08:10 04/30/18 10:00 General appearance: Present: no acute distress, obese - EENT Eyes: Present: PERRL, EOM intact ENT: hearing intact, clear oral mucosa, dentition normal - Neck Neck: Present: supple, normal ROM - Respiratory Respiratory effort: normal Respiratory: bilateral: CTA - Cardiovascular Rhythm: regular Heart Sounds: Present: S1 & S2. Absent: gallop, rub - Extremities Extremities: no ischemia, No edema, Full ROM - Abdominal General gastrointestinal: soft, non-tender, non-distended, normal bowel sounds - Integumentary Integumentary: Present: clear, warm, dry - Neurologic Neurologic: CNII-XII intact, moves all extremities Results - Labs CBC & Chem 7: 04/30/18 05:04 04/30/18 05:04 Labs: Laboratory Last Values WBC 8.0 K/mm3 (4.5-11.0) 04/30/18 05:04 RBC 4.01 M/mm3 (3.65-5.03) 04/30/18 05:04 Hgb 11.6 gm/dl (10.1-14.3) 04/30/18 05:04 Hct 36.3 % (30.3-42.9) 04/30/18 05:04 MCV 91 fl (79-97) 04/30/18 05:04 MCH 29 pg (28-32) 04/30/18 05:04 MCHC 32 % (30-34) 04/30/18 05:04 RDW 18.1 % (13.2-15.2) H 04/30/18 05:04 Plt Count 199 K/mm3 (140-440) 04/30/18 05:04 Lymph % (Auto) 11.9 % (13.4-35.0) L 04/30/18 05:04 [place] % (Auto) 5.4 % (0.0-7.3) 04/30/18 05:04 Eos % (Auto) 0.0 % (0.0-4.3) 04/30/18 05:04 Baso % (Auto) 0.0 % (0.0-1.8) 04/30/18 05:04 Lymph # 1.0 K/mm3 (1.2-5.4) L 04/30/18 05:04 [place] # 0.4 K/mm3 (0.0-0.8) 04/30/18 05:04 Eos # 0.0 K/mm3 (0.0-0.4) 04/30/18 05:04 Baso # 0.0 K/mm3 (0.0-0.1) 04/30/18 05:04 Seg Neutrophils % 82.7 % (40.0-70.0) H 04/30/18 05:04 Seg Neutrophils # 6.6 K/mm3 (1.8-7.7) 04/30/18 05:04 PT 13.4 Sec. (12.2-14.9) 04/29/18 04:57 INR 0.98 (0.87-1.13) 04/29/18 04:57 APTT 30.9 Sec. (24.2-36.6) 04/26/18 11:19 POC ABG pH 7.316 (7.35-7.45) L 04/26/18 15:32 POC ABG pCO2 68.5 (35-45) H 04/26/18 15:32 POC ABG pO2 63 (80-105) L 04/26/18 15:32 POC ABG HCO3 35.0 04/26/18 15:32 POC ABG Total CO2 37 04/26/18 15:32 POC ABG O2 Sat 89 04/26/18 15:32 POC ABG Base Excess 9 04/26/18 15:32 VBG pH 7.292 (7.320-7.420) L 04/26/18 11:19 FiO2 45 % 04/26/18 15:32 Sodium 141 mmol/L (137-145) 04/30/18 05:04 Potassium 4.8 mmol/L (3.6-5.0) 04/30/18 05:04 Chloride 95.6 mmol/L (98-107) L 04/30/18 05:04 Carbon Dioxide 35 mmol/L (22-30) H 04/30/18 05:04 Anion Gap 15 mmol/L 04/30/18 05:04 BUN 32 mg/dL (7-17) H 04/30/18 05:04 Creatinine 0.9 mg/dL (0.7-1.2) 04/30/18 05:04 Estimated GFR > 60 ml/min 04/30/18 05:04 BUN/Creatinine Ratio 36 % 04/30/18 05:04 Glucose 225 mg/dL (65-100) H 04/30/18 05:04 POC Glucose 282 (70-105) H 04/30/18 11:36 Hemoglobin A1c 7.9 % (4-6) H 04/27/18 05:23 Lactic Acid 0.90 mmol/L (0.7-2.0) 04/26/18 15:50 Calcium 8.8 mg/dL (8.4-10.2) 04/30/18 05:04 Total Bilirubin 0.20 mg/dL (0.1-1.2) 04/27/18 05:23 AST 19 units/L (5-40) 04/27/18 05:23 ALT 22 units/L (7-56) 04/27/18 05:23 Alkaline Phosphatase 76 units/L (35-129) 04/27/18 05:23 Total Creatine Kinase 131 units/L (30-135) 04/26/18 11:30 Troponin T 0.175 ng/mL (0.00-0.029) H* 04/26/18 11:19 C-Reactive Protein 1.10 mg/dL (0.00-1.30) 04/28/18 17:34 Total Protein 6.1 g/dL (6.3-8.2) L 04/27/18 05:23 Albumin 3.8 g/dL (3.9-5) L 04/27/18 05:23 Albumin/Globulin Ratio 1.7 % 04/27/18 05:23 Triglycerides 62 mg/dL (2-149) 04/26/18 11:19 Cholesterol 110 mg/dL (50-199) 04/26/18 11:19 LDL Cholesterol Direct 51 mg/dL (50-130) 04/26/18 11:19 HDL Cholesterol 52 mg/dL (40-59) 04/26/18 11:19 Cholesterol/HDL Ratio 2.11 % 04/26/18 11:19 Urine Color Yellow (Yellow) 04/26/18 12:05 Urine Turbidity Slightly-cloudy (Clear) 04/26/18 12:05 Urine pH 5.0 (5.0-7.0) 04/26/18 12:05 Ur Specific [place] 1.006 (1.003-1.030) 04/26/18 12:05 Urine Protein <15 mg/dl mg/dL (Negative) 04/26/18 12:05 Urine Glucose (UA) Neg mg/dL (Negative) 04/26/18 12:05 Urine Ketones Neg mg/dL (Negative) 04/26/18 12:05 Urine Blood Neg (Negative) 04/26/18 12:05 Urine Nitrite Neg (Negative) 04/26/18 12:05 Urine Bilirubin Neg (Negative) 04/26/18 12:05 Urine Urobilinogen < 2.0 mg/dL (<2.0) 04/26/18 12:05 Ur Leukocyte Esterase Tr (Negative) 04/26/18 12:05 Urine WBC (Auto) 3.0 /HPF (0.0-6.0) 04/26/18 12:05 Urine RBC (Auto) 6.0 /HPF (0.0-6.0) 04/26/18 12:05 Urine Bacteria (Auto) 2+ /HPF (Negative) 04/26/18 12:05 Salicylates < 0.3 mg/dL (2.8-20.0) L 04/26/18 11:30 Acetaminophen < 5.0 ug/mL (10.0-30.0) L 04/26/18 11:30 Influenza A (Rapid) Negative (Negative) 04/29/18 15:50 Influenza B (Rapid) Negative (Negative) 04/29/18 15:50
[2018-04-30] MEDS: TAMIFLU PO SCH ×2 (12:24→22:34)
[2018-04-30] MEDS: DOLOPHINE PO SCH ×2 (12:25→22:36)
[2018-04-30] MEDS: PEPCID PO SCH (12:25)
[2018-04-30] MEDS: VIBRAMYCIN PO SCH ×2 (12:25→22:35)
[2018-04-30] MEDS: CLARITIN PO SCH (12:26)
[2018-04-30] MEDS: ECOTRIN PO SCH (12:26)
[2018-04-30] MEDS: ALDACTONE PO SCH (12:26)
[2018-04-30] MEDS: LASIX IV SCH (12:26)
[2018-04-30] MEDS: COREG PO SCH ×2 (12:26→22:37)
[2018-04-30] MEDS: COLACE PO SCH ×2 (12:26→22:34)
[2018-04-30] MEDS: COZAAR PO SCH (13:03)
[2018-04-30] MEDS: SODIUM CHLORIDE FLUSH SYRINGE 10 ML IV SCH ×2 (13:08→22:40)
--- NOTE | 2018-04-30 13:42 | Progress Note ---
Assessment and Plan Acute on chronic hypoxemic hypercapnic respiratory failure. Bilateral moderate volume atelectasis. Bilateral pneumonia. Acute COPD exacerbation Acute on chronic systolic CHF exacerbation, non-ischemic NSTEMI Psychizoaffective disorder Elevated D-dimer. Obstructive sleep apnea. History of hypertension. History of bipolar disorder. Tobacco use disorder. - continue supplemental oxygen to keep O2 sats > 90% - continue systemic steroids with slow taper - continue inhaled corticosteroids - add LABA (Brovana) - VTE and stress ulcer prophylaxis - continue maintenance diuresis for CHF - Continue empiric antibiotics to complete course - continue SSI for glycemic control with target blood glucose <180mg/dL - continue cardio-protective measures - Mobility program for pressure ulcer prophylaxis - continue PT/OT as tolerated - tobacco abstinence strongly counseled throughout this admission - continue other care per attending / other consultants ... re-evaluate in am & prn Subjective Date of service: 04/30/18 Principal diagnosis: Acute COPD exacerbation; Acute on chronic systolic CHF exacerbation Interval history: Patient is seen today for: Acute on chronic hypoxemic hypercapnic respiratory failure; Bilateral pneumonia; Acute COPD exacerbation; Acute on chronic systolic CHF exacerbation Seen and examined at bedside; 24hour events reviewed; nursing and respiratory care staff consulted; no adverse overnight events reported to me; resting peacefully is bed; still SOB; still on supplemental oxygen; No N/V/F/C Objective Vital Signs - 12hr 04/30/18 04/30/18 04/30/18 03:36 04:00 05:18 Temperature 98.1 F Pulse Rate 72 75 Pulse Rate [ Anterior Bilateral Throughout] Respiratory 20 Rate Respiratory Rate [Anterior Bilateral Throughout] Blood Pressure 106/55 106/55 O2 Sat by Pulse 96 Oximetry 04/30/18 04/30/18 04/30/18 05:19 08:10 09:35 Temperature 98.2 F Pulse Rate 68 68 Pulse Rate [ 91 H Anterior Bilateral Throughout] Respiratory 20 Rate Respiratory 20 Rate [Anterior Bilateral Throughout] Blood Pressure 106/55 144/92 O2 Sat by Pulse 96 Oximetry 04/30/18 04/30/18 09:48 10:00 Temperature Pulse Rate Pulse Rate [ 94 H Anterior Bilateral Throughout] Respiratory Rate Respiratory 20 Rate [Anterior Bilateral Throughout] Blood Pressure O2 Sat by Pulse 93 Oximetry Constitutional: no acute distress, alert, other (middle aged AAF, normocephalic and atraumatic with increased respiratory effort at rest) Eyes: non-icteric ENT: oropharynx moist, other (mallampati 3) Neck: supple, no JVD, other (no thyromegaly) Effort: mildly labored Ascultation: Bilateral: diminished breath sounds, rhonchi Percussion: Bilateral: not dull Cardiovascular: regular rate and rhythm Gastrointestinal: normoactive bowel sounds, soft, non-tender, non-distended Integumentary: normal Extremities: no cyanosis, no edema, pulses normal, no ischemia or petechiae Neurologic: non-focal exam, pupils equal and round, CN II-XII normal, motor strength normal and Psychiatric: mood appropriate, affect normal CBC and BMP: 05/04/18 04:56 05/04/18 20:14 ABG, PT/INR, D-dimer: ABG POC ABG pH 7.316 (7.35-7.45) L 04/26/18 15:32 POC ABG pCO2 68.5 (35-45) H 04/26/18 15:32 POC ABG pO2 63 (80-105) L 04/26/18 15:32 POC ABG HCO3 35.0 04/26/18 15:32 POC ABG Total CO2 37 04/26/18 15:32 POC ABG O2 Sat 89 04/26/18 15:32 PT/INR, D-dimer PT 13.4 Sec. (12.2-14.9) 04/29/18 04:57 INR 0.98 (0.87-1.13) 04/29/18 04:57 Abnormal lab findings: Abnormal Labs 04/26/18 04/26/18 04/26/18 11:19 11:19 11:19 RDW 19.3 H Lymph % (Auto) [place] % (Auto) 10.2 H Lymph # [place] # 0.9 H Seg Neutrophils % POC ABG pH POC ABG pCO2 POC ABG pO2 VBG pH Sodium 136 L Potassium 5.6 H Chloride 96.9 L Carbon Dioxide BUN Creatinine 1.3 H Glucose 113 H POC Glucose Hemoglobin A1c Lactic Acid 2.10 H* Calcium Troponin T Total Protein Albumin Salicylates Acetaminophen 04/26/18 04/26/18 04/26/18 11:19 11:19 11:30 RDW Lymph % (Auto) [place] % (Auto) Lymph # [place] # Seg Neutrophils % POC ABG pH POC ABG pCO2 POC ABG pO2 VBG pH 7.292 L Sodium Potassium Chloride Carbon Dioxide BUN Creatinine Glucose POC Glucose Hemoglobin A1c Lactic Acid Calcium Troponin T 0.175 H* Total Protein Albumin Salicylates < 0.3 L Acetaminophen 04/26/18 04/26/18 04/26/18 11:30 13:14 15:32 RDW Lymph % (Auto) [place] % (Auto) Lymph # [place] # Seg Neutrophils % POC ABG pH 7.277 L 7.316 L POC ABG pCO2 70.5 H 68.5 H POC ABG pO2 27 L 63 L VBG pH Sodium Potassium Chloride Carbon Dioxide BUN Creatinine Glucose POC Glucose Hemoglobin A1c Lactic Acid Calcium Troponin T Total Protein Albumin Salicylates Acetaminophen < 5.0 L 04/26/18 04/26/18 04/27/18 17:56 21:56 05:19 RDW Lymph % (Auto) [place] % (Auto) Lymph # [place] # Seg Neutrophils % POC ABG pH POC ABG pCO2 POC ABG pO2 VBG pH Sodium Potassium Chloride Carbon Dioxide BUN Creatinine Glucose POC Glucose 119 H 164 H 184 H Hemoglobin A1c Lactic Acid Calcium Troponin T Total Protein Albumin Salicylates Acetaminophen 04/27/18 04/27/18 04/27/18 05:23 05:23 05:23 RDW 18.4 H Lymph % (Auto) [place] % (Auto) Lymph # 1.1 L [place] # Seg Neutrophils % 75.9 H POC ABG pH POC ABG pCO2 POC ABG pO2 VBG pH Sodium 136 L Potassium Chloride 94.8 L Carbon Dioxide BUN 21 H Creatinine Glucose 183 H POC Glucose Hemoglobin A1c 7.9 H Lactic Acid Calcium 8.2 L Troponin T Total Protein 6.1 L Albumin 3.8 L Salicylates Acetaminophen 04/27/18 04/27/18 04/27/18 11:45 15:42 21:51 RDW Lymph % (Auto) [place] % (Auto) Lymph # [place] # Seg Neutrophils % POC ABG pH POC ABG pCO2 POC ABG pO2 VBG pH Sodium Potassium Chloride Carbon Dioxide BUN Creatinine Glucose POC Glucose 184 H 108 H 230 H Hemoglobin A1c Lactic Acid Calcium Troponin T Total Protein Albumin Salicylates Acetaminophen 04/28/18 04/28/18 04/28/18 04:57 04:57 07:14 RDW 18.6 H Lymph % (Auto) 11.7 L [place] % (Auto) Lymph # 0.9 L [place] # Seg Neutrophils % 81.6 H POC ABG pH POC ABG pCO2 POC ABG pO2 VBG pH Sodium Potassium Chloride 97.0 L Carbon Dioxide 31 H BUN 27 H Creatinine Glucose 206 H POC Glucose 187 H Hemoglobin A1c Lactic Acid Calcium Troponin T Total Protein Albumin Salicylates Acetaminophen 04/28/18 04/28/18 04/28/18 11:10 17:06 20:53 RDW Lymph % (Auto) [place] % (Auto) Lymph # [place] # Seg Neutrophils % POC ABG pH POC ABG pCO2 POC ABG pO2 VBG pH Sodium Potassium Chloride Carbon Dioxide BUN Creatinine Glucose POC Glucose 240 H 189 H 236 H Hemoglobin A1c Lactic Acid Calcium Troponin T Total Protein Albumin Salicylates Acetaminophen 04/29/18 04/29/18 04/29/18 04:57 04:57 05:01 RDW 18.8 H Lymph % (Auto) [place] % (Auto) Lymph # [place] # Seg Neutrophils % POC ABG pH POC ABG pCO2 POC ABG pO2 VBG pH Sodium Potassium Chloride 96.1 L Carbon Dioxide 33 H BUN 29 H Creatinine Glucose 252 H POC Glucose 237 H Hemoglobin A1c Lactic Acid Calcium Troponin T Total Protein Albumin Salicylates Acetaminophen 04/29/18 04/29/18 04/29/18 12:21 16:42 20:34 RDW Lymph % (Auto) [place] % (Auto) Lymph # [place] # Seg Neutrophils % POC ABG pH POC ABG pCO2 POC ABG pO2 VBG pH Sodium Potassium Chloride Carbon Dioxide BUN Creatinine Glucose POC Glucose 210 H 258 H 226 H Hemoglobin A1c Lactic Acid Calcium Troponin T Total Protein Albumin Salicylates Acetaminophen 04/30/18 04/30/18 04/30/18 05:04 05:04 05:47 RDW 18.1 H Lymph % (Auto) 11.9 L [place] % (Auto) Lymph # 1.0 L [place] # Seg Neutrophils % 82.7 H POC ABG pH POC ABG pCO2 POC ABG pO2 VBG pH Sodium Potassium Chloride 95.6 L Carbon Dioxide 35 H BUN 32 H Creatinine Glucose 225 H POC Glucose 193 H Hemoglobin A1c Lactic Acid Calcium Troponin T Total Protein Albumin Salicylates Acetaminophen 04/30/18 11:36 RDW Lymph % (Auto) [place] % (Auto) Lymph # [place] # Seg Neutrophils % POC ABG pH POC ABG pCO2 POC ABG pO2 VBG pH Sodium Potassium Chloride Carbon Dioxide BUN Creatinine Glucose POC Glucose 282 H Hemoglobin A1c Lactic Acid Calcium Troponin T Total Protein Albumin Salicylates Acetaminophen Allied health notes reviewed: nursing
[2018-04-30] MEDS: PERCOCET 5/325 PO PRN (13:43)
[2018-04-30] MEDS ORDERED: SOLU-Medrol IV SCH (16:00)
[2018-04-30] MEDS: SENOKOT PO SCH (22:34)
[2018-04-30] MEDS: SINGULAIR PO SCH (22:35)
[2018-04-30] MEDS: DESYREL PO SCH (22:36)
[2018-04-30] MEDS: CEPHULAC PO SCH ×2 (22:39→22:55)
[2018-04-30] MEDS: ROBITUSSIN AC PO PRN (22:56)
[2018-05-01] MEDS: SOLU-Medrol IV SCH ×3 (03:42→20:00)
[2018-05-01] MEDS: ATIVAN PO SCH ×3 (03:42→22:08)
[2018-05-01] MEDS: SODIUM CHLORIDE FLUSH SYRINGE 10 ML IV PRN (03:42)
[2018-05-01] MEDS: APRESOLINE PO SCH ×3 (06:07→21:59)
[2018-05-01] MEDS: ISORDIL TITRADOSE PO SCH ×3 (06:07→21:58)
[2018-05-01] MEDS: HumaLOG SUB-Q SCH ×4 (07:58→22:08)
[2018-05-01] MEDS: DUONEB *Not for PRN Use IH SCH ×3 (09:54→21:10)
[2018-05-01] MEDS: PULMICORT IH SCH ×2 (09:55→21:10)
[2018-05-01] MEDS: CEPHULAC PO SCH ×2 (10:28→21:56)
[2018-05-01] MEDS: COZAAR PO SCH (10:29)
[2018-05-01] MEDS: TAMIFLU PO SCH ×2 (10:29→21:57)
[2018-05-01] MEDS: COREG PO SCH ×2 (10:30→21:58)
[2018-05-01] MEDS: CLARITIN PO SCH (10:30)
[2018-05-01] MEDS: VIBRAMYCIN PO SCH ×2 (10:30→21:58)
[2018-05-01] MEDS: ECOTRIN PO SCH (10:31)
[2018-05-01] MEDS: COLACE PO SCH ×2 (10:31→21:58)
[2018-05-01] MEDS: PEPCID PO SCH (10:31)
[2018-05-01] MEDS: LASIX IV SCH (10:32)
[2018-05-01] MEDS: SORBITOL 70% PO SCH ×2 (10:54→22:00)
[2018-05-01] MEDS: LEVAQUIN 750MG/150ML 750 MG/150 ML BAG IV SCH (10:57)
[2018-05-01] MEDS: DOLOPHINE PO SCH ×2 (11:28→21:57)
--- NOTE | 2018-05-01 12:15 | Progress Note ---
Assessment and Plan Assessment and plan: Sepsis. Continue antibiotics per ID. Presumed pneumonia. Etiology likely Influenza vs CAP vs HAP (recent admssion). CXR right perihilar infiltrate. Acute on chronic hypoxemic respiratory failure. Continue BiPAP as clinically indicated. Patient is DO NOT INTUBATE. Etiology is multifactorial secondary to decompensated heart failure, COPD exacerbation and probable SHANIQUE/OHS. Acute COPD exacerbation. Nebulizer treatments IV Solu-Medrol and IV antibiotics Pulmicort inhalation twice a day Acute on chronic systolic heart failure. Cardiology recommends right left heart catheterization but patient refused. Dilated Nonischemic Cardiomyopathy LHC at [facility] in 2013: no significant CAD, EF 45% moderately decrease LVEF 20-25% by echo 08/2017 Cardiology . Acute kidney injury. Gentle hydration and follow-up BMP. Hyperlipidemia. Since the statins. Tobacco abuse. Patient reports smoking since age 14. Counseling on smoking cessation. Hypertension. Cont. antihypertensive medications. Diabetes mellitus type 2. Continue home insulin and coverage Hemoglobin A1c is 7.9. History Interval history: 47-year-old female comes in for severe shortness of breath of 2 days' duration. Patient has history of nonischemic cardiomyopathy, COPD and chronic respiratory failure. Patient has been getting worsening shortness of breath in spite of using the nebulizer treatments. Cough productive of mucoid sputum. Orthopnea present. Shortness of breath on minimal exertion. No fever or chills. No PND attacks. No recent travel. Patient apparently has a ejection fraction of 45% by echocardiogram done in [place] which is decreased to 20-25% recently by echocardiogram. Patient is a resident of local residential. The patient refused coronary angiogram. Hospitalist Physical - Constitutional Vitals: Temp Pulse Resp BP Pulse Ox 98.4 F 100 H 20 131/77 95 05/01/18 08:18 05/01/18 10:14 05/01/18 10:14 05/01/18 08:18 05/01/18 10:00 General appearance: Present: no acute distress, obese - EENT Eyes: Present: PERRL, EOM intact ENT: hearing intact, clear oral mucosa, dentition normal - Neck Neck: Present: supple, normal ROM - Respiratory Respiratory effort: normal Respiratory: bilateral: CTA - Cardiovascular Rhythm: regular Heart Sounds: Present: S1 & S2. Absent: gallop, rub - Extremities Extremities: no ischemia, No edema, Full ROM - Abdominal General gastrointestinal: soft, non-tender, non-distended, normal bowel sounds - Integumentary Integumentary: Present: clear, warm, dry - Neurologic Neurologic: CNII-XII intact, moves all extremities Results - Labs CBC & Chem 7: 04/30/18 05:04 04/30/18 05:04 Labs: Laboratory Last Values WBC 8.0 K/mm3 (4.5-11.0) 04/30/18 05:04 RBC 4.01 M/mm3 (3.65-5.03) 04/30/18 05:04 Hgb 11.6 gm/dl (10.1-14.3) 04/30/18 05:04 Hct 36.3 % (30.3-42.9) 04/30/18 05:04 MCV 91 fl (79-97) 04/30/18 05:04 MCH 29 pg (28-32) 04/30/18 05:04 MCHC 32 % (30-34) 04/30/18 05:04 RDW 18.1 % (13.2-15.2) H 04/30/18 05:04 Plt Count 199 K/mm3 (140-440) 04/30/18 05:04 Lymph % (Auto) 11.9 % (13.4-35.0) L 04/30/18 05:04 [place] % (Auto) 5.4 % (0.0-7.3) 04/30/18 05:04 Eos % (Auto) 0.0 % (0.0-4.3) 04/30/18 05:04 Baso % (Auto) 0.0 % (0.0-1.8) 04/30/18 05:04 Lymph # 1.0 K/mm3 (1.2-5.4) L 04/30/18 05:04 [place] # 0.4 K/mm3 (0.0-0.8) 04/30/18 05:04 Eos # 0.0 K/mm3 (0.0-0.4) 04/30/18 05:04 Baso # 0.0 K/mm3 (0.0-0.1) 04/30/18 05:04 Seg Neutrophils % 82.7 % (40.0-70.0) H 04/30/18 05:04 Seg Neutrophils # 6.6 K/mm3 (1.8-7.7) 04/30/18 05:04 PT 13.4 Sec. (12.2-14.9) 04/29/18 04:57 INR 0.98 (0.87-1.13) 04/29/18 04:57 APTT 30.9 Sec. (24.2-36.6) 04/26/18 11:19 POC ABG pH 7.316 (7.35-7.45) L 04/26/18 15:32 POC ABG pCO2 68.5 (35-45) H 04/26/18 15:32 POC ABG pO2 63 (80-105) L 04/26/18 15:32 POC ABG HCO3 35.0 04/26/18 15:32 POC ABG Total CO2 37 04/26/18 15:32 POC ABG O2 Sat 89 04/26/18 15:32 POC ABG Base Excess 9 04/26/18 15:32 VBG pH 7.292 (7.320-7.420) L 04/26/18 11:19 FiO2 45 % 04/26/18 15:32 Sodium 141 mmol/L (137-145) 04/30/18 05:04 Potassium 4.8 mmol/L (3.6-5.0) 04/30/18 05:04 Chloride 95.6 mmol/L (98-107) L 04/30/18 05:04 Carbon Dioxide 35 mmol/L (22-30) H 04/30/18 05:04 Anion Gap 15 mmol/L 04/30/18 05:04 BUN 32 mg/dL (7-17) H 04/30/18 05:04 Creatinine 0.9 mg/dL (0.7-1.2) 04/30/18 05:04 Estimated GFR > 60 ml/min 04/30/18 05:04 BUN/Creatinine Ratio 36 % 04/30/18 05:04 Glucose 225 mg/dL (65-100) H 04/30/18 05:04 POC Glucose 252 (70-105) H 05/01/18 05:52 Hemoglobin A1c 7.9 % (4-6) H 04/27/18 05:23 Lactic Acid 0.90 mmol/L (0.7-2.0) 04/26/18 15:50 Calcium 8.8 mg/dL (8.4-10.2) 04/30/18 05:04 Total Bilirubin 0.20 mg/dL (0.1-1.2) 04/27/18 05:23 AST 19 units/L (5-40) 04/27/18 05:23 ALT 22 units/L (7-56) 04/27/18 05:23 Alkaline Phosphatase 76 units/L (35-129) 04/27/18 05:23 Total Creatine Kinase 131 units/L (30-135) 04/26/18 11:30 Troponin T 0.175 ng/mL (0.00-0.029) H* 04/26/18 11:19 C-Reactive Protein 1.10 mg/dL (0.00-1.30) 04/28/18 17:34 Total Protein 6.1 g/dL (6.3-8.2) L 04/27/18 05:23 Albumin 3.8 g/dL (3.9-5) L 04/27/18 05:23 Albumin/Globulin Ratio 1.7 % 04/27/18 05:23 Triglycerides 62 mg/dL (2-149) 04/26/18 11:19 Cholesterol 110 mg/dL (50-199) 04/26/18 11:19 LDL Cholesterol Direct 51 mg/dL (50-130) 04/26/18 11:19 HDL Cholesterol 52 mg/dL (40-59) 04/26/18 11:19 Cholesterol/HDL Ratio 2.11 % 04/26/18 11:19 Urine Color Yellow (Yellow) 04/26/18 12:05 Urine Turbidity Slightly-cloudy (Clear) 04/26/18 12:05 Urine pH 5.0 (5.0-7.0) 04/26/18 12:05 Ur Specific [place] 1.006 (1.003-1.030) 04/26/18 12:05 Urine Protein <15 mg/dl mg/dL (Negative) 04/26/18 12:05 Urine Glucose (UA) Neg mg/dL (Negative) 04/26/18 12:05 Urine Ketones Neg mg/dL (Negative) 04/26/18 12:05 Urine Blood Neg (Negative) 04/26/18 12:05 Urine Nitrite Neg (Negative) 04/26/18 12:05 Urine Bilirubin Neg (Negative) 04/26/18 12:05 Urine Urobilinogen < 2.0 mg/dL (<2.0) 04/26/18 12:05 Ur Leukocyte Esterase Tr (Negative) 04/26/18 12:05 Urine WBC (Auto) 3.0 /HPF (0.0-6.0) 04/26/18 12:05 Urine RBC (Auto) 6.0 /HPF (0.0-6.0) 04/26/18 12:05 Urine Bacteria (Auto) 2+ /HPF (Negative) 04/26/18 12:05 Salicylates < 0.3 mg/dL (2.8-20.0) L 04/26/18 11:30 Acetaminophen < 5.0 ug/mL (10.0-30.0) L 04/26/18 11:30 Influenza A (Rapid) Negative (Negative) 04/29/18 15:50 Influenza B (Rapid) Negative (Negative) 04/29/18 15:50
[2018-05-01] MEDS: ROBITUSSIN AC PO PRN (13:51)
[2018-05-01] MEDS: ALDACTONE PO SCH (13:52)
--- NOTE | 2018-05-01 18:51 | Progress Note ---
Assessment and Plan Cultures: 04/26/18 blood culture no growth so far 04/26/18 urine culture ESBL E coli Assessment: 47 y/o female with history of morbid obesity, CHF EF 25%, COPD s/p previous trach, morbid obesity, previous colectomy, multiple admissions in the past, known to ID due to admission on 08/21/17 due to ESBL Escherichia coli UTI +/- RLL pneumonia due to H. flu. Re-admitted on 04/26/18 due to worsening SOB and cough for 3 days associated with productive cough with white sputum. 1) Sepsis: improving, fever resolved; etio. pneumonia. UA neg. Blood cx negative. 2) Presumed pneumonia: likely Influenza vs CAP vs HAP (recent admssion). CXR right perihilar infiltrate. Influenza ag neg 3) Acute on chronic resp failure: multifactorial - CHF exacerbation +/- pneumonia 4) ESBL E coli urine colonization: UA not c/w UTI 5) CHF exacerbation Recommendations: - continue tamiflu D4 of 5 - stop levaquin D5 of 5 - continue doxycycline D4 of 5 to cover empirically for MRSA pneumonia - contact isolation due to ESBL - f/u legionella/strep urine ag - refused cardiac cath Dr Guy will round Thursday MD [facility] C: [phone] O: [phone] F: [phone] Subjective Date of service: 05/01/18 Principal diagnosis: fever Interval history: Patient reports feeling better. Wants to go home. Objective - Exam Narrative Exam: Constitutional: Alert, cooperative. mild distress observed. Morbidly obese Head, Ears, Nose: Normocephalic, atraumatic. External ears, nose normal Breast: no mastitis, warmth or tenderness, soft no lumps, not lactating , no nipple drainage Eyes: Conjunctivae/corneas clear. No icterus. No ptosis. Neck: Supple, no meningeal signs Oral: dentition good, no thrush Cardiovascular rrr Respiratory: distant BS GI: Soft, tender to palpation diffusely, normal bowel sounds Musculoskeletal: + cristina pedal edema, no cyanosis. Skin: No rash or abscess. Hem/Lymphatic: No palpable cervical or supraclavicular nodes. No lymphangitis Psych: Mood ok. Affect normal Neurological: Awake, alert, oriented. - Constitutional Vitals: Vital Signs Temp Pulse Resp BP Pulse Ox 98.4 F 96 H 20 140/72 97 05/01/18 16:39 05/01/18 16:39 05/01/18 16:39 05/01/18 16:39 05/01/18 16:39 Temperature -Last 24 Hours Temperature 98.4 F Temperature 98.0 F Temperature 98.4 F Temperature 98.2 F Temperature 97.1 F Temperature 97.3 F - Labs CBC & Chem 7: 04/30/18 05:04 04/30/18 05:04 Labs: Abnormal lab results 04/30/18 05/01/18 05/01/18 Range/Units 20:42 05:52 12:04 POC Glucose 266 H 252 H 292 H (70-105) 05/01/18 Range/Units 16:26 POC Glucose 217 H (70-105)
[2018-05-01] MEDS: DESYREL PO SCH (21:56)
[2018-05-01] MEDS: SINGULAIR PO SCH (21:57)
[2018-05-01] MEDS: SODIUM CHLORIDE FLUSH SYRINGE 10 ML IV SCH (22:00)
[2018-05-01] MEDS: SENOKOT PO SCH (22:00)
--- NOTE | 2018-05-01 22:53 | Progress Note ---
Assessment and Plan Patient alert, awake. Says feeling some what better to day. Patient Goes on BIPAP during night time. Patient Presently on 3 litres O2. O2 saturation 93%.. - Patient Problems (1) Acute and chronic respiratory failure with hypercapnia Current Visit: Yes Status: Acute Plan to address problem: Placing her on 3 litres O2 and monitor saturation. BIPAP 16/6, rate 16, FIO2 35% Albuterol/atrovent aerosol treatments q 6 hours. Continue I/V solumedral. SCDs Continue Famotidine Continue Levaquin. (2) Acute exacerbation of CHF (congestive heart failure) Current Visit: Yes Status: Acute Qualifiers: Heart failure type: combined systolic and diastolic Qualified Code(s): I50.43 - Acute on chronic combined systolic (congestive) and diastolic (congestive) heart failure Plan to address problem: Management as per cardiology. (3) Acute kidney injury Current Visit: Yes Status: Acute Plan to address problem: Management as per nephrology. (4) COPD exacerbation Current Visit: No Status: Acute Plan to address problem: Placing her on 3 litres O2 and monitor saturation. BIPAP 16/6, rate 16, FIO2 35% Albuterol/atrovent aerosol treatments q 6 hours. Continue I/V solumedral. SCDs Continue Famotidine Continue Levaquin. (5) Sleep apnea syndrome Current Visit: No Status: Acute Plan to address problem: BIPAP 16/6, rate 16, FIO2 35%. Recommend to loose weight. Explained sleep apnea. Subjective Date of service: 05/01/18 Principal diagnosis: fever Interval history: Patient alert, awake. Says feeling some what better to day. Patient Goes on BIPAP during night time. Patient Presently on 3 litres O2. O2 saturation 93%. Objective Vital Signs - 12hr 05/01/18 05/01/18 05/01/18 12:36 15:12 15:32 Temperature 98.0 F Pulse Rate 64 Pulse Rate [ 96 H 102 H Anterior Bilateral Throughout] Respiratory 18 Rate Respiratory 18 20 Rate [Anterior Bilateral Throughout] Blood Pressure Blood Pressure 136/76 [Left] O2 Sat by Pulse 96 Oximetry 05/01/18 05/01/18 05/01/18 16:39 19:41 21:15 Temperature 98.4 F 98.0 F Pulse Rate 96 H Pulse Rate [ 97 H Anterior Bilateral Throughout] Respiratory 20 18 Rate Respiratory 20 Rate [Anterior Bilateral Throughout] Blood Pressure 113/65 Blood Pressure 140/72 [Left] O2 Sat by Pulse 97 97 Oximetry 05/01/18 05/01/18 21:58 21:59 Temperature Pulse Rate 97 H 97 H Pulse Rate [ Anterior Bilateral Throughout] Respiratory Rate Respiratory Rate [Anterior Bilateral Throughout] Blood Pressure 113/65 113/65 Blood Pressure [Left] O2 Sat by Pulse Oximetry Constitutional: no acute distress, alert, other (middle aged AAF, normocephalic and atraumatic with increased respiratory effort at rest) Eyes: non-icteric ENT: oropharynx moist, other (mallampati 3) Neck: supple, no JVD, other (no thyromegaly) Effort: mildly labored Ascultation: Bilateral: diminished breath sounds, wheezes, rhonchi Percussion: Bilateral: not dull Cardiovascular: regular rate and rhythm Gastrointestinal: normoactive bowel sounds, soft, non-tender, non-distended Integumentary: normal Extremities: no cyanosis, no edema, pulses normal, no ischemia or petechiae Neurologic: non-focal exam, pupils equal and round, CN II-XII normal, motor strength normal and Psychiatric: mood appropriate, affect normal CBC and BMP: 04/30/18 05:04 04/30/18 05:04 ABG, PT/INR, D-dimer: ABG POC ABG pH 7.316 (7.35-7.45) L 04/26/18 15:32 POC ABG pCO2 68.5 (35-45) H 04/26/18 15:32 POC ABG pO2 63 (80-105) L 04/26/18 15:32 POC ABG HCO3 35.0 04/26/18 15:32 POC ABG Total CO2 37 04/26/18 15:32 POC ABG O2 Sat 89 04/26/18 15:32 PT/INR, D-dimer PT 13.4 Sec. (12.2-14.9) 04/29/18 04:57 INR 0.98 (0.87-1.13) 04/29/18 04:57 Abnormal lab findings: Abnormal Labs 04/26/18 04/26/18 04/26/18 11:19 11:19 11:19 RDW 19.3 H Lymph % (Auto) [place] % (Auto) 10.2 H Lymph # [place] # 0.9 H Seg Neutrophils % POC ABG pH POC ABG pCO2 POC ABG pO2 VBG pH Sodium 136 L Potassium 5.6 H Chloride 96.9 L Carbon Dioxide BUN Creatinine 1.3 H Glucose 113 H POC Glucose Hemoglobin A1c Lactic Acid 2.10 H* Calcium Troponin T Total Protein Albumin Salicylates Acetaminophen 04/26/18 04/26/18 04/26/18 11:19 11:19 11:30 RDW Lymph % (Auto) [place] % (Auto) Lymph # [place] # Seg Neutrophils % POC ABG pH POC ABG pCO2 POC ABG pO2 VBG pH 7.292 L Sodium Potassium Chloride Carbon Dioxide BUN Creatinine Glucose POC Glucose Hemoglobin A1c Lactic Acid Calcium Troponin T 0.175 H* Total Protein Albumin Salicylates < 0.3 L Acetaminophen 04/26/18 04/26/18 04/26/18 11:30 13:14 15:32 RDW Lymph % (Auto) [place] % (Auto) Lymph # [place] # Seg Neutrophils % POC ABG pH 7.277 L 7.316 L POC ABG pCO2 70.5 H 68.5 H POC ABG pO2 27 L 63 L VBG pH Sodium Potassium Chloride Carbon Dioxide BUN Creatinine Glucose POC Glucose Hemoglobin A1c Lactic Acid Calcium Troponin T Total Protein Albumin Salicylates Acetaminophen < 5.0 L 04/26/18 04/26/18 04/27/18 17:56 21:56 05:19 RDW Lymph % (Auto) [place] % (Auto) Lymph # [place] # Seg Neutrophils % POC ABG pH POC ABG pCO2 POC ABG pO2 VBG pH Sodium Potassium Chloride Carbon Dioxide BUN Creatinine Glucose POC Glucose 119 H 164 H 184 H Hemoglobin A1c Lactic Acid Calcium Troponin T Total Protein Albumin Salicylates Acetaminophen 04/27/18 04/27/18 04/27/18 05:23 05:23 05:23 RDW 18.4 H Lymph % (Auto) [place] % (Auto) Lymph # 1.1 L [place] # Seg Neutrophils % 75.9 H POC ABG pH POC ABG pCO2 POC ABG pO2 VBG pH Sodium 136 L Potassium Chloride 94.8 L Carbon Dioxide BUN 21 H Creatinine Glucose 183 H POC Glucose Hemoglobin A1c 7.9 H Lactic Acid Calcium 8.2 L Troponin T Total Protein 6.1 L Albumin 3.8 L Salicylates Acetaminophen 04/27/18 04/27/18 04/27/18 11:45 15:42 21:51 RDW Lymph % (Auto) [place] % (Auto) Lymph # [place] # Seg Neutrophils % POC ABG pH POC ABG pCO2 POC ABG pO2 VBG pH Sodium Potassium Chloride Carbon Dioxide BUN Creatinine Glucose POC Glucose 184 H 108 H 230 H Hemoglobin A1c Lactic Acid Calcium Troponin T Total Protein Albumin Salicylates Acetaminophen 04/28/18 04/28/18 04/28/18 04:57 04:57 07:14 RDW 18.6 H Lymph % (Auto) 11.7 L [place] % (Auto) Lymph # 0.9 L [place] # Seg Neutrophils % 81.6 H POC ABG pH POC ABG pCO2 POC ABG pO2 VBG pH Sodium Potassium Chloride 97.0 L Carbon Dioxide 31 H BUN 27 H Creatinine Glucose 206 H POC Glucose 187 H Hemoglobin A1c Lactic Acid Calcium Troponin T Total Protein Albumin Salicylates Acetaminophen 04/28/18 04/28/18 04/28/18 11:10 17:06 20:53 RDW Lymph % (Auto) [place] % (Auto) Lymph # [place] # Seg Neutrophils % POC ABG pH POC ABG pCO2 POC ABG pO2 VBG pH Sodium Potassium Chloride Carbon Dioxide BUN Creatinine Glucose POC Glucose 240 H 189 H 236 H Hemoglobin A1c Lactic Acid Calcium Troponin T Total Protein Albumin Salicylates Acetaminophen 04/29/18 04/29/18 04/29/18 04:57 04:57 05:01 RDW 18.8 H Lymph % (Auto) [place] % (Auto) Lymph # [place] # Seg Neutrophils % POC ABG pH POC ABG pCO2 POC ABG pO2 VBG pH Sodium Potassium Chloride 96.1 L Carbon Dioxide 33 H BUN 29 H Creatinine Glucose 252 H POC Glucose 237 H Hemoglobin A1c Lactic Acid Calcium Troponin T Total Protein Albumin Salicylates Acetaminophen 04/29/18 04/29/18 04/29/18 12:21 16:42 20:34 RDW Lymph % (Auto) [place] % (Auto) Lymph # [place] # Seg Neutrophils % POC ABG pH POC ABG pCO2 POC ABG pO2 VBG pH Sodium Potassium Chloride Carbon Dioxide BUN Creatinine Glucose POC Glucose 210 H 258 H 226 H Hemoglobin A1c Lactic Acid Calcium Troponin T Total Protein Albumin Salicylates Acetaminophen 04/30/18 04/30/18 04/30/18 05:04 05:04 05:47 RDW 18.1 H Lymph % (Auto) 11.9 L [place] % (Auto) Lymph # 1.0 L [place] # Seg Neutrophils % 82.7 H POC ABG pH POC ABG pCO2 POC ABG pO2 VBG pH Sodium Potassium Chloride 95.6 L Carbon Dioxide 35 H BUN 32 H Creatinine Glucose 225 H POC Glucose 193 H Hemoglobin A1c Lactic Acid Calcium Troponin T Total Protein Albumin Salicylates Acetaminophen 04/30/18 04/30/18 04/30/18 11:36 16:28 20:42 RDW Lymph % (Auto) [place] % (Auto) Lymph # [place] # Seg Neutrophils % POC ABG pH POC ABG pCO2 POC ABG pO2 VBG pH Sodium Potassium Chloride Carbon Dioxide BUN Creatinine Glucose POC Glucose 282 H 259 H 266 H Hemoglobin A1c Lactic Acid Calcium Troponin T Total Protein Albumin Salicylates Acetaminophen 05/01/18 05/01/18 05/01/18 05:52 12:04 16:26 RDW Lymph % (Auto) [place] % (Auto) Lymph # [place] # Seg Neutrophils % POC ABG pH POC ABG pCO2 POC ABG pO2 VBG pH Sodium Potassium Chloride Carbon Dioxide BUN Creatinine Glucose POC Glucose 252 H 292 H 217 H Hemoglobin A1c Lactic Acid Calcium Troponin T Total Protein Albumin Salicylates Acetaminophen 05/01/18 21:07 RDW Lymph % (Auto) [place] % (Auto) Lymph # [place] # Seg Neutrophils % POC ABG pH POC ABG pCO2 POC ABG pO2 VBG pH Sodium Potassium Chloride Carbon Dioxide BUN Creatinine Glucose POC Glucose 237 H Hemoglobin A1c Lactic Acid Calcium Troponin T Total Protein Albumin Salicylates Acetaminophen Chest x-ray: report reviewed, image reviewed Allied health notes reviewed: nursing
[2018-05-02] MEDS: SOLU-Medrol IV SCH ×3 (04:45→20:30)
[2018-05-02] MEDS: ISORDIL TITRADOSE PO SCH ×3 (06:00→21:51)
[2018-05-02] MEDS: APRESOLINE PO SCH ×3 (06:00→21:52)
[2018-05-02] MEDS: PULMICORT IH SCH ×2 (08:12→21:45)
[2018-05-02] MEDS: DUONEB *Not for PRN Use IH SCH ×3 (08:12→21:45)
--- NOTE | 2018-05-02 09:07 | Progress Note ---
Assessment and Plan Assessment and plan: Sepsis. Continue Tamiflu and doxycycline per ID recommendations. Presumed pneumonia. Etiology likely Influenza vs CAP vs HAP (recent admssion). CXR right perihilar infiltrate. Follow-up Legionella/strep urine antigen Acute on chronic hypoxemic respiratory failure. Continue BiPAP as clinically indicated. Patient is DO NOT INTUBATE. Etiology is multifactorial secondary to decompensated heart failure, COPD exacerbation and probable SHANIQUE/OHS. Acute COPD exacerbation. Nebulizer treatments IV Solu-Medrol and IV antibiotics Pulmicort inhalation twice a day Acute on chronic systolic heart failure. Cardiology recommends right left heart catheterization but patient refused. Dilated Nonischemic Cardiomyopathy LHC at [facility] in 2013: no significant CAD, EF 45% moderately decrease LVEF 20-25% by echo 08/2017 Cardiology . Acute kidney injury. Gentle hydration and follow-up BMP. Hyperlipidemia. Since the statins. Tobacco abuse. Patient reports smoking since age 14. Counseling on smoking cessation. Hypertension. Cont. antihypertensive medications. Diabetes mellitus type 2. Continue home insulin and coverage Hemoglobin A1c is 7.9. History Interval history: 47-year-old female comes in for severe shortness of breath of 2 days' duration. Patient has history of nonischemic cardiomyopathy, COPD and chronic respiratory failure. Patient has been getting worsening shortness of breath in spite of using the nebulizer treatments. Cough productive of mucoid sputum. Orthopnea present. Shortness of breath on minimal exertion. No fever or chills. No PND attacks. No recent travel. Patient apparently has a ejection fraction of 45% by echocardiogram done in [place] which is decreased to 20-25% recently by echocardiogram. [place] The patient refused coronary angiogram. Patient resting comfortably on BiPAP. No new issues overnight. Hospitalist Physical - Constitutional Vitals: Temp Pulse Resp BP Pulse Ox 98.2 F 72 18 144/90 88 05/02/18 08:51 05/02/18 08:51 05/02/18 08:51 05/02/18 08:51 05/02/18 08:51 General appearance: Present: no acute distress, obese - EENT Eyes: Present: PERRL, EOM intact ENT: hearing intact, clear oral mucosa, dentition normal - Neck Neck: Present: supple, normal ROM - Respiratory Respiratory effort: normal Respiratory: bilateral: CTA - Cardiovascular Rhythm: regular Heart Sounds: Present: S1 & S2. Absent: gallop, rub - Extremities Extremities: no ischemia, No edema, Full ROM - Abdominal General gastrointestinal: soft, non-tender, non-distended, normal bowel sounds - Integumentary Integumentary: Present: clear, warm, dry - Neurologic Neurologic: CNII-XII intact, moves all extremities Results - Labs CBC & Chem 7: 04/30/18 05:04 04/30/18 05:04 Labs: Laboratory Last Values WBC 8.0 K/mm3 (4.5-11.0) 04/30/18 05:04 RBC 4.01 M/mm3 (3.65-5.03) 04/30/18 05:04 Hgb 11.6 gm/dl (10.1-14.3) 04/30/18 05:04 Hct 36.3 % (30.3-42.9) 04/30/18 05:04 MCV 91 fl (79-97) 04/30/18 05:04 MCH 29 pg (28-32) 04/30/18 05:04 MCHC 32 % (30-34) 04/30/18 05:04 RDW 18.1 % (13.2-15.2) H 04/30/18 05:04 Plt Count 199 K/mm3 (140-440) 04/30/18 05:04 Lymph % (Auto) 11.9 % (13.4-35.0) L 04/30/18 05:04 [place] % (Auto) 5.4 % (0.0-7.3) 04/30/18 05:04 Eos % (Auto) 0.0 % (0.0-4.3) 04/30/18 05:04 Baso % (Auto) 0.0 % (0.0-1.8) 04/30/18 05:04 Lymph # 1.0 K/mm3 (1.2-5.4) L 04/30/18 05:04 [place] # 0.4 K/mm3 (0.0-0.8) 04/30/18 05:04 Eos # 0.0 K/mm3 (0.0-0.4) 04/30/18 05:04 Baso # 0.0 K/mm3 (0.0-0.1) 04/30/18 05:04 Seg Neutrophils % 82.7 % (40.0-70.0) H 04/30/18 05:04 Seg Neutrophils # 6.6 K/mm3 (1.8-7.7) 04/30/18 05:04 PT 13.4 Sec. (12.2-14.9) 04/29/18 04:57 INR 0.98 (0.87-1.13) 04/29/18 04:57 APTT 30.9 Sec. (24.2-36.6) 04/26/18 11:19 POC ABG pH 7.316 (7.35-7.45) L 04/26/18 15:32 POC ABG pCO2 68.5 (35-45) H 04/26/18 15:32 POC ABG pO2 63 (80-105) L 04/26/18 15:32 POC ABG HCO3 35.0 04/26/18 15:32 POC ABG Total CO2 37 04/26/18 15:32 POC ABG O2 Sat 89 04/26/18 15:32 POC ABG Base Excess 9 04/26/18 15:32 VBG pH 7.292 (7.320-7.420) L 04/26/18 11:19 FiO2 45 % 04/26/18 15:32 Sodium 141 mmol/L (137-145) 04/30/18 05:04 Potassium 4.8 mmol/L (3.6-5.0) 04/30/18 05:04 Chloride 95.6 mmol/L (98-107) L 04/30/18 05:04 Carbon Dioxide 35 mmol/L (22-30) H 04/30/18 05:04 Anion Gap 15 mmol/L 04/30/18 05:04 BUN 32 mg/dL (7-17) H 04/30/18 05:04 Creatinine 0.9 mg/dL (0.7-1.2) 04/30/18 05:04 Estimated GFR > 60 ml/min 04/30/18 05:04 BUN/Creatinine Ratio 36 % 04/30/18 05:04 Glucose 225 mg/dL (65-100) H 04/30/18 05:04 POC Glucose 263 (70-105) H 05/02/18 06:13 Hemoglobin A1c 7.9 % (4-6) H 04/27/18 05:23 Lactic Acid 0.90 mmol/L (0.7-2.0) 04/26/18 15:50 Calcium 8.8 mg/dL (8.4-10.2) 04/30/18 05:04 Total Bilirubin 0.20 mg/dL (0.1-1.2) 04/27/18 05:23 AST 19 units/L (5-40) 04/27/18 05:23 ALT 22 units/L (7-56) 04/27/18 05:23 Alkaline Phosphatase 76 units/L (35-129) 04/27/18 05:23 Total Creatine Kinase 131 units/L (30-135) 04/26/18 11:30 Troponin T 0.175 ng/mL (0.00-0.029) H* 04/26/18 11:19 C-Reactive Protein 1.10 mg/dL (0.00-1.30) 04/28/18 17:34 Total Protein 6.1 g/dL (6.3-8.2) L 04/27/18 05:23 Albumin 3.8 g/dL (3.9-5) L 04/27/18 05:23 Albumin/Globulin Ratio 1.7 % 04/27/18 05:23 Triglycerides 62 mg/dL (2-149) 04/26/18 11:19 Cholesterol 110 mg/dL (50-199) 04/26/18 11:19 LDL Cholesterol Direct 51 mg/dL (50-130) 04/26/18 11:19 HDL Cholesterol 52 mg/dL (40-59) 04/26/18 11:19 Cholesterol/HDL Ratio 2.11 % 04/26/18 11:19 Urine Color Yellow (Yellow) 04/26/18 12:05 Urine Turbidity Slightly-cloudy (Clear) 04/26/18 12:05 Urine pH 5.0 (5.0-7.0) 04/26/18 12:05 Ur Specific [place] 1.006 (1.003-1.030) 04/26/18 12:05 Urine Protein <15 mg/dl mg/dL (Negative) 04/26/18 12:05 Urine Glucose (UA) Neg mg/dL (Negative) 04/26/18 12:05 Urine Ketones Neg mg/dL (Negative) 04/26/18 12:05 Urine Blood Neg (Negative) 04/26/18 12:05 Urine Nitrite Neg (Negative) 04/26/18 12:05 Urine Bilirubin Neg (Negative) 04/26/18 12:05 Urine Urobilinogen < 2.0 mg/dL (<2.0) 04/26/18 12:05 Ur Leukocyte Esterase Tr (Negative) 04/26/18 12:05 Urine WBC (Auto) 3.0 /HPF (0.0-6.0) 04/26/18 12:05 Urine RBC (Auto) 6.0 /HPF (0.0-6.0) 04/26/18 12:05 Urine Bacteria (Auto) 2+ /HPF (Negative) 04/26/18 12:05 Salicylates < 0.3 mg/dL (2.8-20.0) L 04/26/18 11:30 Acetaminophen < 5.0 ug/mL (10.0-30.0) L 04/26/18 11:30 Influenza A (Rapid) Negative (Negative) 04/29/18 15:50 Influenza B (Rapid) Negative (Negative) 04/29/18 15:50
[2018-05-02] MEDS: COZAAR PO SCH (11:07)
[2018-05-02] MEDS: PEPCID PO SCH (11:07)
[2018-05-02] MEDS: SORBITOL 70% PO SCH ×2 (11:08→21:53)
[2018-05-02] MEDS: TAMIFLU PO SCH ×2 (11:08→21:56)
[2018-05-02] MEDS: ALDACTONE PO SCH (11:08)
[2018-05-02] MEDS: ECOTRIN PO SCH (11:09)
[2018-05-02] MEDS: LASIX IV SCH (11:09)
[2018-05-02] MEDS: COLACE PO SCH ×2 (11:09→21:51)
[2018-05-02] MEDS: ATIVAN PO SCH ×3 (11:09→21:49)
[2018-05-02] MEDS: CLARITIN PO SCH (11:09)
[2018-05-02] MEDS: VIBRAMYCIN PO SCH ×2 (11:09→21:51)
[2018-05-02] MEDS: CEPHULAC PO SCH ×2 (11:09→21:49)
[2018-05-02] MEDS: DOLOPHINE PO SCH ×2 (11:10→21:52)
[2018-05-02] MEDS: COREG PO SCH ×2 (11:10→21:51)
[2018-05-02] MEDS: SODIUM CHLORIDE FLUSH SYRINGE 10 ML IV SCH ×2 (11:10→21:53)
[2018-05-02] MEDS: HumaLOG SUB-Q SCH ×4 (11:11→22:20)
[2018-05-02] MEDS: FLONASE NS SCH (11:12)
--- NOTE | 2018-05-02 15:22 | Progress Note ---
Assessment and Plan Patient alert, awake. Says feeling some what better to day. Patient Goes on BIPAP during night time. Patient Presently on 4 litres O2. O2 saturation 93%.. - Patient Problems (1) Acute and chronic respiratory failure with hypercapnia Current Visit: Yes Status: Acute Plan to address problem: Placing her on 4 litres O2 and monitor saturation. BIPAP 16/6, rate 16, FIO2 35% Albuterol/atrovent aerosol treatments q 6 hours. Continue I/V solumedral. SCDs Continue Famotidine Continue Levaquin. (2) Acute exacerbation of CHF (congestive heart failure) Current Visit: Yes Status: Acute Qualifiers: Heart failure type: combined systolic and diastolic Qualified Code(s): I50.43 - Acute on chronic combined systolic (congestive) and diastolic (congestive) heart failure Plan to address problem: Management as per cardiology. (3) Acute kidney injury Current Visit: Yes Status: Acute Plan to address problem: Management as per nephrology. (4) COPD exacerbation Current Visit: No Status: Acute Plan to address problem: Placing her on 4 litres O2 and monitor saturation. BIPAP 16/6, rate 16, FIO2 35% Albuterol/atrovent aerosol treatments q 6 hours. Continue I/V solumedral. SCDs Continue Famotidine Continue Levaquin. (5) Sleep apnea syndrome Current Visit: No Status: Acute Plan to address problem: BIPAP 16/6, rate 16, FIO2 35%. Recommend to loose weight. Explained sleep apnea. Subjective Date of service: 05/02/18 Principal diagnosis: fever Interval history: Patient alert, awake. Says feeling some what better to day. Patient Goes on BIPAP during night time. Patient Presently on 4 litres O2. O2 saturation 93%. Objective Vital Signs - 12hr 05/02/18 05/02/18 05/02/18 04:55 06:00 08:12 Temperature 98.0 F Pulse Rate 80 80 Pulse Rate [ 96 H Anterior Bilateral Throughout] Respiratory 18 Rate Respiratory 17 Rate [Anterior Bilateral Throughout] Blood Pressure 138/94 138/94 O2 Sat by Pulse 97 Oximetry 05/02/18 05/02/18 05/02/18 08:20 08:23 08:51 Temperature 98.2 F Pulse Rate 72 Pulse Rate [ 104 H Anterior Bilateral Throughout] Respiratory 18 Rate Respiratory 18 Rate [Anterior Bilateral Throughout] Blood Pressure 144/90 O2 Sat by Pulse 98 88 Oximetry 05/02/18 05/02/18 05/02/18 12:33 14:11 14:22 Temperature 98.3 F Pulse Rate 76 Pulse Rate [ 101 H 108 H Anterior Bilateral Throughout] Respiratory 18 Rate Respiratory 16 16 Rate [Anterior Bilateral Throughout] Blood Pressure 149/93 O2 Sat by Pulse 92 Oximetry Constitutional: no acute distress, alert, other (middle aged AAF, normocephalic and atraumatic with increased respiratory effort at rest) Eyes: non-icteric ENT: oropharynx moist, other (mallampati 3) Neck: supple, no JVD, other (no thyromegaly) Effort: mildly labored Ascultation: Bilateral: diminished breath sounds, wheezes, rhonchi Percussion: Bilateral: not dull Cardiovascular: regular rate and rhythm Gastrointestinal: normoactive bowel sounds, soft, non-tender, non-distended Integumentary: normal Extremities: no cyanosis, no edema, pulses normal, no ischemia or petechiae Neurologic: non-focal exam, pupils equal and round, CN II-XII normal, motor strength normal and Psychiatric: mood appropriate, affect normal CBC and BMP: 04/30/18 05:04 04/30/18 05:04 ABG, PT/INR, D-dimer: ABG POC ABG pH 7.316 (7.35-7.45) L 04/26/18 15:32 POC ABG pCO2 68.5 (35-45) H 04/26/18 15:32 POC ABG pO2 63 (80-105) L 04/26/18 15:32 POC ABG HCO3 35.0 04/26/18 15:32 POC ABG Total CO2 37 04/26/18 15:32 POC ABG O2 Sat 89 04/26/18 15:32 PT/INR, D-dimer PT 13.4 Sec. (12.2-14.9) 04/29/18 04:57 INR 0.98 (0.87-1.13) 04/29/18 04:57 Abnormal lab findings: Abnormal Labs 04/26/18 04/26/18 04/26/18 11:19 11:19 11:19 RDW 19.3 H Lymph % (Auto) [place] % (Auto) 10.2 H Lymph # [place] # 0.9 H Seg Neutrophils % POC ABG pH POC ABG pCO2 POC ABG pO2 VBG pH Sodium 136 L Potassium 5.6 H Chloride 96.9 L Carbon Dioxide BUN Creatinine 1.3 H Glucose 113 H POC Glucose Hemoglobin A1c Lactic Acid 2.10 H* Calcium Troponin T Total Protein Albumin Salicylates Acetaminophen 04/26/18 04/26/18 04/26/18 11:19 11:19 11:30 RDW Lymph % (Auto) [place] % (Auto) Lymph # [place] # Seg Neutrophils % POC ABG pH POC ABG pCO2 POC ABG pO2 VBG pH 7.292 L Sodium Potassium Chloride Carbon Dioxide BUN Creatinine Glucose POC Glucose Hemoglobin A1c Lactic Acid Calcium Troponin T 0.175 H* Total Protein Albumin Salicylates < 0.3 L Acetaminophen 04/26/18 04/26/18 04/26/18 11:30 13:14 15:32 RDW Lymph % (Auto) [place] % (Auto) Lymph # [place] # Seg Neutrophils % POC ABG pH 7.277 L 7.316 L POC ABG pCO2 70.5 H 68.5 H POC ABG pO2 27 L 63 L VBG pH Sodium Potassium Chloride Carbon Dioxide BUN Creatinine Glucose POC Glucose Hemoglobin A1c Lactic Acid Calcium Troponin T Total Protein Albumin Salicylates Acetaminophen < 5.0 L 04/26/18 04/26/18 04/27/18 17:56 21:56 05:19 RDW Lymph % (Auto) [place] % (Auto) Lymph # [place] # Seg Neutrophils % POC ABG pH POC ABG pCO2 POC ABG pO2 VBG pH Sodium Potassium Chloride Carbon Dioxide BUN Creatinine Glucose POC Glucose 119 H 164 H 184 H Hemoglobin A1c Lactic Acid Calcium Troponin T Total Protein Albumin Salicylates Acetaminophen 04/27/18 04/27/18 04/27/18 05:23 05:23 05:23 RDW 18.4 H Lymph % (Auto) [place] % (Auto) Lymph # 1.1 L [place] # Seg Neutrophils % 75.9 H POC ABG pH POC ABG pCO2 POC ABG pO2 VBG pH Sodium 136 L Potassium Chloride 94.8 L Carbon Dioxide BUN 21 H Creatinine Glucose 183 H POC Glucose Hemoglobin A1c 7.9 H Lactic Acid Calcium 8.2 L Troponin T Total Protein 6.1 L Albumin 3.8 L Salicylates Acetaminophen 04/27/18 04/27/18 04/27/18 11:45 15:42 21:51 RDW Lymph % (Auto) [place] % (Auto) Lymph # [place] # Seg Neutrophils % POC ABG pH POC ABG pCO2 POC ABG pO2 VBG pH Sodium Potassium Chloride Carbon Dioxide BUN Creatinine Glucose POC Glucose 184 H 108 H 230 H Hemoglobin A1c Lactic Acid Calcium Troponin T Total Protein Albumin Salicylates Acetaminophen 04/28/18 04/28/18 04/28/18 04:57 04:57 07:14 RDW 18.6 H Lymph % (Auto) 11.7 L [place] % (Auto) Lymph # 0.9 L [place] # Seg Neutrophils % 81.6 H POC ABG pH POC ABG pCO2 POC ABG pO2 VBG pH Sodium Potassium Chloride 97.0 L Carbon Dioxide 31 H BUN 27 H Creatinine Glucose 206 H POC Glucose 187 H Hemoglobin A1c Lactic Acid Calcium Troponin T Total Protein Albumin Salicylates Acetaminophen 04/28/18 04/28/18 04/28/18 11:10 17:06 20:53 RDW Lymph % (Auto) [place] % (Auto) Lymph # [place] # Seg Neutrophils % POC ABG pH POC ABG pCO2 POC ABG pO2 VBG pH Sodium Potassium Chloride Carbon Dioxide BUN Creatinine Glucose POC Glucose 240 H 189 H 236 H Hemoglobin A1c Lactic Acid Calcium Troponin T Total Protein Albumin Salicylates Acetaminophen 04/29/18 04/29/18 04/29/18 04:57 04:57 05:01 RDW 18.8 H Lymph % (Auto) [place] % (Auto) Lymph # [place] # Seg Neutrophils % POC ABG pH POC ABG pCO2 POC ABG pO2 VBG pH Sodium Potassium Chloride 96.1 L Carbon Dioxide 33 H BUN 29 H Creatinine Glucose 252 H POC Glucose 237 H Hemoglobin A1c Lactic Acid Calcium Troponin T Total Protein Albumin Salicylates Acetaminophen 04/29/18 04/29/18 04/29/18 12:21 16:42 20:34 RDW Lymph % (Auto) [place] % (Auto) Lymph # [place] # Seg Neutrophils % POC ABG pH POC ABG pCO2 POC ABG pO2 VBG pH Sodium Potassium Chloride Carbon Dioxide BUN Creatinine Glucose POC Glucose 210 H 258 H 226 H Hemoglobin A1c Lactic Acid Calcium Troponin T Total Protein Albumin Salicylates Acetaminophen 04/30/18 04/30/18 04/30/18 05:04 05:04 05:47 RDW 18.1 H Lymph % (Auto) 11.9 L [place] % (Auto) Lymph # 1.0 L [place] # Seg Neutrophils % 82.7 H POC ABG pH POC ABG pCO2 POC ABG pO2 VBG pH Sodium Potassium Chloride 95.6 L Carbon Dioxide 35 H BUN 32 H Creatinine Glucose 225 H POC Glucose 193 H Hemoglobin A1c Lactic Acid Calcium Troponin T Total Protein Albumin Salicylates Acetaminophen 04/30/18 04/30/18 04/30/18 11:36 16:28 20:42 RDW Lymph % (Auto) [place] % (Auto) Lymph # [place] # Seg Neutrophils % POC ABG pH POC ABG pCO2 POC ABG pO2 VBG pH Sodium Potassium Chloride Carbon Dioxide BUN Creatinine Glucose POC Glucose 282 H 259 H 266 H Hemoglobin A1c Lactic Acid Calcium Troponin T Total Protein Albumin Salicylates Acetaminophen 05/01/18 05/01/18 05/01/18 05:52 12:04 16:26 RDW Lymph % (Auto) [place] % (Auto) Lymph # [place] # Seg Neutrophils % POC ABG pH POC ABG pCO2 POC ABG pO2 VBG pH Sodium Potassium Chloride Carbon Dioxide BUN Creatinine Glucose POC Glucose 252 H 292 H 217 H Hemoglobin A1c Lactic Acid Calcium Troponin T Total Protein Albumin Salicylates Acetaminophen 05/01/18 05/02/18 05/02/18 21:07 06:13 12:37 RDW Lymph % (Auto) [place] % (Auto) Lymph # [place] # Seg Neutrophils % POC ABG pH POC ABG pCO2 POC ABG pO2 VBG pH Sodium Potassium Chloride Carbon Dioxide BUN Creatinine Glucose POC Glucose 237 H 263 H 331 H Hemoglobin A1c Lactic Acid Calcium Troponin T Total Protein Albumin Salicylates Acetaminophen Allied health notes reviewed: nursing
[2018-05-02] MEDS: PERCOCET 5/325 PO PRN (18:26)
[2018-05-02] MEDS: SINGULAIR PO SCH (21:49)
[2018-05-02] MEDS: DESYREL PO SCH (21:51)
[2018-05-02] MEDS: SENOKOT PO SCH (21:52)
[2018-05-03] MEDS: ATIVAN PO SCH ×4 (03:00→22:10)
[2018-05-03] MEDS: SOLU-Medrol IV SCH ×3 (04:40→20:14)
[2018-05-03] MEDS: APRESOLINE PO SCH ×3 (06:18→22:11)
[2018-05-03] MEDS: ISORDIL TITRADOSE PO SCH ×3 (06:19→22:09)
[2018-05-03] MEDS: HumaLOG SUB-Q SCH ×3 (09:06→22:11)
[2018-05-03] MEDS: ECOTRIN PO SCH (09:24)
[2018-05-03] MEDS: CEPHULAC PO SCH ×2 (09:24→22:07)
[2018-05-03] MEDS: COREG PO SCH ×2 (09:24→22:11)
[2018-05-03] MEDS: PULMICORT IH SCH ×2 (09:26→20:47)
[2018-05-03] MEDS: DUONEB *Not for PRN Use IH SCH ×3 (09:26→20:47)
--- NOTE | 2018-05-03 09:27 | Progress Note ---
Assessment and Plan Cultures: 04/26/18 blood culture no growth so far 04/26/18 urine culture ESBL E coli Assessment: 47 y/o female with history of morbid obesity, CHF EF 25%, COPD s/p previous trach, morbid obesity, previous colectomy, multiple admissions in the past, known to ID due to admission on 08/21/17 due to ESBL Escherichia coli UTI +/- RLL pneumonia due to H. flu. Re-admitted on 04/26/18 due to worsening SOB and cough for 3 days associated with productive cough with white sputum. 1) Sepsis: Resolved. resolved; etio. pneumonia. UA neg. Blood cx negative. 2) Presumed pneumonia: likely Influenza vs CAP vs HAP (recent admssion). CXR right perihilar infiltrate. Influenza ag neg 3) Acute on chronic resp failure: multifactorial - CHF exacerbation +/- pneumonia 4) ESBL E coli urine colonization: UA not c/w UTI 5) CHF exacerbation Recommendations: - continue contact isolation due to ESBL - f/u legionella/strep urine ag - Monitor off antibiotics [facility] M: [phone] O:[phone] Subjective Date of service: 05/03/18 Principal diagnosis: fever Interval history: Patient seen and examined. Stated that she was doing better, ready to go home. Objective - Exam Narrative Exam: Constitutional: Alert, conversant, no acute distress. Morbidly obese Head, Ears, Nose: Normocephalic, atraumatic. External ears, nose normal Breast: no mastitis, warmth or tenderness, soft no lumps, not lactating , no nipple drainage Eyes: Conjunctivae/corneas clear. No icterus. No ptosis. Neck: Supple, no meningeal signs Oral: dentition good, no thrush Cardiovascular: S1, S2 normal Respiratory: distant BS GI: exam limited Musculoskeletal: exam limited Skin: No rash or abscess. Hem/Lymphatic: No palpable cervical or supraclavicular nodes. No lymphangitis Psych: Mood ok Neurological: Awake, alert, oriented. - Constitutional Vitals: Vital Signs Temp Pulse Resp BP Pulse Ox 98.2 F 66 18 141/92 99 05/03/18 01:01 05/03/18 06:19 05/03/18 01:01 05/03/18 06:19 05/03/18 01:01 Temperature -Last 24 Hours Temperature 98.2 F Temperature 98.6 F Temperature 98.3 F - Labs CBC & Chem 7: 04/30/18 05:04 04/30/18 05:04 Labs: Abnormal lab results 05/02/18 05/02/18 05/02/18 Range/Units 12:37 17:38 21:33 POC Glucose 331 H 224 H 241 H (70-105) 05/03/18 Range/Units 06:21 POC Glucose 259 H (70-105)
[2018-05-03] MEDS: CLARITIN PO SCH (09:29)
[2018-05-03] MEDS: COZAAR PO SCH (09:29)
[2018-05-03] MEDS: PEPCID PO SCH (09:29)
[2018-05-03] MEDS: COLACE PO SCH ×2 (09:29→22:10)
[2018-05-03] MEDS: SORBITOL 70% PO SCH ×2 (09:30→22:08)
[2018-05-03] MEDS: DOLOPHINE PO SCH ×2 (09:31→22:10)
[2018-05-03] MEDS: LASIX IV SCH (09:31)
[2018-05-03] MEDS: ALDACTONE PO SCH (09:32)
[2018-05-03] MEDS: SODIUM CHLORIDE FLUSH SYRINGE 10 ML IV SCH ×3 (09:33→22:12)
[2018-05-03] MEDS: VIBRAMYCIN PO SCH (09:34)
[2018-05-03] MEDS: TAMIFLU PO SCH (09:34)
[2018-05-03] MEDS: FLONASE NS SCH ×2 (10:14→10:15)
--- NOTE | 2018-05-03 10:48 | Progress Note ---
Assessment and Plan Assessment and plan: Sepsis. Continue Tamiflu and doxycycline per ID recommendations. Presumed pneumonia. Etiology likely Influenza vs CAP vs HAP (recent admssion). CXR right perihilar infiltrate. Follow-up Legionella/strep urine antigen Acute on chronic hypoxemic respiratory failure. Continue BiPAP as clinically indicated. Patient is DO NOT INTUBATE. Etiology is multifactorial secondary to decompensated heart failure, COPD exacerbation and probable SHANIQUE/OHS. Acute COPD exacerbation. Nebulizer treatments IV Solu-Medrol and IV antibiotics Pulmicort inhalation twice a day Acute on chronic systolic heart failure. Cardiology recommends right left heart catheterization but patient refused. Dilated Nonischemic Cardiomyopathy LHC at [facility] in 2013: no significant CAD, EF 45% moderately decrease LVEF 20-25% by echo 08/2017 Cardiology . Acute kidney injury. Resolved. Hyperlipidemia. Continued statins. Tobacco abuse. Patient reports smoking since age 14. Counseling on smoking cessation. Hypertension. Cont. antihypertensive medications. Diabetes mellitus type 2. Continue home insulin and coverage Hemoglobin A1c is 7.9. Disposition Likely discharge in next 1-2 days if okay with ID History Interval history: 47-year-old female comes in for severe shortness of breath of 2 days' duration. Patient has history of nonischemic cardiomyopathy, COPD and chronic respiratory failure. Patient has been getting worsening shortness of breath in spite of using the nebulizer treatments. Cough productive of mucoid sputum. Orthopnea present. Shortness of breath on minimal exertion. No fever or chills. No PND attacks. No recent travel. Patient apparently has a ejection fraction of 45% by echocardiogram done in [place] which is decreased to 20-25% recently by echocardiogram. Patient [place] The patient r efused coronary angiogram. Patient resting comfortably on BiPAP. No new issues overnight. Hospitalist Physical - Constitutional Vitals: Temp Pulse Resp BP Pulse Ox 97.3 F L 85 18 140/85 91 05/03/18 08:25 05/03/18 09:32 05/03/18 08:25 05/03/18 08:25 05/03/18 08:25 General appearance: Present: no acute distress, obese - EENT Eyes: Present: PERRL, EOM intact ENT: hearing intact, clear oral mucosa, dentition normal - Neck Neck: Present: supple, normal ROM - Respiratory Respiratory effort: normal Respiratory: bilateral: CTA - Cardiovascular Rhythm: regular Heart Sounds: Present: S1 & S2. Absent: gallop, rub - Extremities Extremities: no ischemia, No edema, Full ROM - Abdominal General gastrointestinal: soft, non-tender, non-distended, normal bowel sounds - Integumentary Integumentary: Present: clear, warm, dry - Neurologic Neurologic: CNII-XII intact, moves all extremities Results - Labs CBC & Chem 7: 04/30/18 05:04 04/30/18 05:04 Labs: Laboratory Last Values WBC 8.0 K/mm3 (4.5-11.0) 04/30/18 05:04 RBC 4.01 M/mm3 (3.65-5.03) 04/30/18 05:04 Hgb 11.6 gm/dl (10.1-14.3) 04/30/18 05:04 Hct 36.3 % (30.3-42.9) 04/30/18 05:04 MCV 91 fl (79-97) 04/30/18 05:04 MCH 29 pg (28-32) 04/30/18 05:04 MCHC 32 % (30-34) 04/30/18 05:04 RDW 18.1 % (13.2-15.2) H 04/30/18 05:04 Plt Count 199 K/mm3 (140-440) 04/30/18 05:04 Lymph % (Auto) 11.9 % (13.4-35.0) L 04/30/18 05:04 [place] % (Auto) 5.4 % (0.0-7.3) 04/30/18 05:04 Eos % (Auto) 0.0 % (0.0-4.3) 04/30/18 05:04 Baso % (Auto) 0.0 % (0.0-1.8) 04/30/18 05:04 Lymph # 1.0 K/mm3 (1.2-5.4) L 04/30/18 05:04 [place] # 0.4 K/mm3 (0.0-0.8) 04/30/18 05:04 Eos # 0.0 K/mm3 (0.0-0.4) 04/30/18 05:04 Baso # 0.0 K/mm3 (0.0-0.1) 04/30/18 05:04 Seg Neutrophils % 82.7 % (40.0-70.0) H 04/30/18 05:04 Seg Neutrophils # 6.6 K/mm3 (1.8-7.7) 04/30/18 05:04 PT 13.4 Sec. (12.2-14.9) 04/29/18 04:57 INR 0.98 (0.87-1.13) 04/29/18 04:57 APTT 30.9 Sec. (24.2-36.6) 04/26/18 11:19 POC ABG pH 7.316 (7.35-7.45) L 04/26/18 15:32 POC ABG pCO2 68.5 (35-45) H 04/26/18 15:32 POC ABG pO2 63 (80-105) L 04/26/18 15:32 POC ABG HCO3 35.0 04/26/18 15:32 POC ABG Total CO2 37 04/26/18 15:32 POC ABG O2 Sat 89 04/26/18 15:32 POC ABG Base Excess 9 04/26/18 15:32 VBG pH 7.292 (7.320-7.420) L 04/26/18 11:19 FiO2 45 % 04/26/18 15:32 Sodium 141 mmol/L (137-145) 04/30/18 05:04 Potassium 4.8 mmol/L (3.6-5.0) 04/30/18 05:04 Chloride 95.6 mmol/L (98-107) L 04/30/18 05:04 Carbon Dioxide 35 mmol/L (22-30) H 04/30/18 05:04 Anion Gap 15 mmol/L 04/30/18 05:04 BUN 32 mg/dL (7-17) H 04/30/18 05:04 Creatinine 0.9 mg/dL (0.7-1.2) 04/30/18 05:04 Estimated GFR > 60 ml/min 04/30/18 05:04 BUN/Creatinine Ratio 36 % 04/30/18 05:04 Glucose 225 mg/dL (65-100) H 04/30/18 05:04 POC Glucose 259 (70-105) H 05/03/18 06:21 Hemoglobin A1c 7.9 % (4-6) H 04/27/18 05:23 Lactic Acid 0.90 mmol/L (0.7-2.0) 04/26/18 15:50 Calcium 8.8 mg/dL (8.4-10.2) 04/30/18 05:04 Total Bilirubin 0.20 mg/dL (0.1-1.2) 04/27/18 05:23 AST 19 units/L (5-40) 04/27/18 05:23 ALT 22 units/L (7-56) 04/27/18 05:23 Alkaline Phosphatase 76 units/L (35-129) 04/27/18 05:23 Total Creatine Kinase 131 units/L (30-135) 04/26/18 11:30 Troponin T 0.175 ng/mL (0.00-0.029) H* 04/26/18 11:19 C-Reactive Protein 1.10 mg/dL (0.00-1.30) 04/28/18 17:34 Total Protein 6.1 g/dL (6.3-8.2) L 04/27/18 05:23 Albumin 3.8 g/dL (3.9-5) L 04/27/18 05:23 Albumin/Globulin Ratio 1.7 % 04/27/18 05:23 Triglycerides 62 mg/dL (2-149) 04/26/18 11:19 Cholesterol 110 mg/dL (50-199) 04/26/18 11:19 LDL Cholesterol Direct 51 mg/dL (50-130) 04/26/18 11:19 HDL Cholesterol 52 mg/dL (40-59) 04/26/18 11:19 Cholesterol/HDL Ratio 2.11 % 04/26/18 11:19 Urine Color Yellow (Yellow) 04/26/18 12:05 Urine Turbidity Slightly-cloudy (Clear) 04/26/18 12:05 Urine pH 5.0 (5.0-7.0) 04/26/18 12:05 Ur Specific [place] 1.006 (1.003-1.030) 04/26/18 12:05 Urine Protein <15 mg/dl mg/dL (Negative) 04/26/18 12:05 Urine Glucose (UA) Neg mg/dL (Negative) 04/26/18 12:05 Urine Ketones Neg mg/dL (Negative) 04/26/18 12:05 Urine Blood Neg (Negative) 04/26/18 12:05 Urine Nitrite Neg (Negative) 04/26/18 12:05 Urine Bilirubin Neg (Negative) 04/26/18 12:05 Urine Urobilinogen < 2.0 mg/dL (<2.0) 04/26/18 12:05 Ur Leukocyte Esterase Tr (Negative) 04/26/18 12:05 Urine WBC (Auto) 3.0 /HPF (0.0-6.0) 04/26/18 12:05 Urine RBC (Auto) 6.0 /HPF (0.0-6.0) 04/26/18 12:05 Urine Bacteria (Auto) 2+ /HPF (Negative) 04/26/18 12:05 Salicylates < 0.3 mg/dL (2.8-20.0) L 04/26/18 11:30 Acetaminophen < 5.0 ug/mL (10.0-30.0) L 04/26/18 11:30 Influenza A (Rapid) Negative (Negative) 04/29/18 15:50 Influenza B (Rapid) Negative (Negative) 04/29/18 15:50
[2018-05-03] MEDS: PERCOCET 5/325 PO PRN (17:38)
--- NOTE | 2018-05-03 19:48 | Progress Note ---
Assessment and Plan Patient alert, awake. Says feeling some what better to day. Patient Goes on BIPAP during night time. Patient Presently on 4 litres O2. O2 saturation 92%.. - Patient Problems (1) Acute and chronic respiratory failure with hypercapnia Current Visit: Yes Status: Acute Plan to address problem: Placing her on 4 litres O2 and monitor saturation. BIPAP 16/6, rate 16, FIO2 35% Albuterol/atrovent aerosol treatments q 6 hours. Continue I/V solumedral. SCDs Continue Famotidine Continue Levaquin. (2) Acute exacerbation of CHF (congestive heart failure) Current Visit: Yes Status: Acute Qualifiers: Heart failure type: combined systolic and diastolic Qualified Code(s): I50.43 - Acute on chronic combined systolic (congestive) and diastolic (congestive) heart failure Plan to address problem: Management as per cardiology. (3) Acute kidney injury Current Visit: Yes Status: Acute Plan to address problem: Management as per nephrology. (4) COPD exacerbation Current Visit: No Status: Acute Plan to address problem: Placing her on 4 litres O2 and monitor saturation. BIPAP 16/6, rate 16, FIO2 35% Albuterol/atrovent aerosol treatments q 6 hours. Continue I/V solumedral. SCDs Continue Famotidine Continue Levaquin. (5) Sleep apnea syndrome Current Visit: No Status: Acute Plan to address problem: BIPAP 16/6, rate 16, FIO2 35%. Recommend to loose weight. Explained sleep apnea. Subjective Date of service: 05/03/18 Principal diagnosis: fever Interval history: Patient alert, awake. Says feeling some what better to day. Patient Goes on BIPAP during night time. Patient Presently on 4 litres O2. O2 saturation 92%. Objective Vital Signs - 12hr 05/03/18 05/03/18 05/03/18 08:25 09:24 09:26 Temperature 97.3 F L Pulse Rate 74 85 Pulse Rate [ 76 Anterior Bilateral Throughout] Respiratory 18 Rate Respiratory 20 Rate [Anterior Bilateral Throughout] Blood Pressure 140/85 O2 Sat by Pulse 91 93 Oximetry 05/03/18 05/03/18 05/03/18 09:29 09:32 09:36 Temperature Pulse Rate 85 85 Pulse Rate [ 81 Anterior Bilateral Throughout] Respiratory Rate Respiratory 20 Rate [Anterior Bilateral Throughout] Blood Pressure O2 Sat by Pulse Oximetry 05/03/18 05/03/18 05/03/18 13:39 13:50 16:02 Temperature 98.4 F Pulse Rate 77 Pulse Rate [ 85 83 Anterior Bilateral Throughout] Respiratory 20 Rate Respiratory 18 20 Rate [Anterior Bilateral Throughout] Blood Pressure 143/87 O2 Sat by Pulse 92 Oximetry 05/03/18 05/03/18 17:50 17:51 Temperature Pulse Rate Pulse Rate [ Anterior Bilateral Throughout] Respiratory Rate Respiratory Rate [Anterior Bilateral Throughout] Blood Pressure 143/87 143/87 O2 Sat by Pulse Oximetry Constitutional: no acute distress, alert, other (middle aged AAF, normocephalic and atraumatic with increased respiratory effort at rest) Eyes: non-icteric ENT: oropharynx moist, other (mallampati 3) Neck: supple, no JVD, other (no thyromegaly) Effort: mildly labored Ascultation: Bilateral: diminished breath sounds, wheezes, rhonchi Percussion: Bilateral: not dull Cardiovascular: regular rate and rhythm Gastrointestinal: normoactive bowel sounds, soft, non-tender, non-distended Integumentary: normal Extremities: no cyanosis, no edema, pulses normal, no ischemia or petechiae Neurologic: non-focal exam, pupils equal and round, CN II-XII normal, motor strength normal and Psychiatric: mood appropriate, affect normal CBC and BMP: 04/30/18 05:04 04/30/18 05:04 ABG, PT/INR, D-dimer: ABG POC ABG pH 7.316 (7.35-7.45) L 04/26/18 15:32 POC ABG pCO2 68.5 (35-45) H 04/26/18 15:32 POC ABG pO2 63 (80-105) L 04/26/18 15:32 POC ABG HCO3 35.0 04/26/18 15:32 POC ABG Total CO2 37 04/26/18 15:32 POC ABG O2 Sat 89 04/26/18 15:32 PT/INR, D-dimer PT 13.4 Sec. (12.2-14.9) 04/29/18 04:57 INR 0.98 (0.87-1.13) 04/29/18 04:57 Abnormal lab findings: Abnormal Labs 04/26/18 04/26/18 04/26/18 11:19 11:19 11:19 RDW 19.3 H Lymph % (Auto) [place] % (Auto) 10.2 H Lymph # [place] # 0.9 H Seg Neutrophils % POC ABG pH POC ABG pCO2 POC ABG pO2 VBG pH Sodium 136 L Potassium 5.6 H Chloride 96.9 L Carbon Dioxide BUN Creatinine 1.3 H Glucose 113 H POC Glucose Hemoglobin A1c Lactic Acid 2.10 H* Calcium Troponin T Total Protein Albumin Salicylates Acetaminophen 04/26/18 04/26/18 04/26/18 11:19 11:19 11:30 RDW Lymph % (Auto) [place] % (Auto) Lymph # [place] # Seg Neutrophils % POC ABG pH POC ABG pCO2 POC ABG pO2 VBG pH 7.292 L Sodium Potassium Chloride Carbon Dioxide BUN Creatinine Glucose POC Glucose Hemoglobin A1c Lactic Acid Calcium Troponin T 0.175 H* Total Protein Albumin Salicylates < 0.3 L Acetaminophen 04/26/18 04/26/18 04/26/18 11:30 13:14 15:32 RDW Lymph % (Auto) [place] % (Auto) Lymph # [place] # Seg Neutrophils % POC ABG pH 7.277 L 7.316 L POC ABG pCO2 70.5 H 68.5 H POC ABG pO2 27 L 63 L VBG pH Sodium Potassium Chloride Carbon Dioxide BUN Creatinine Glucose POC Glucose Hemoglobin A1c Lactic Acid Calcium Troponin T Total Protein Albumin Salicylates Acetaminophen < 5.0 L 04/26/18 04/26/18 04/27/18 17:56 21:56 05:19 RDW Lymph % (Auto) [place] % (Auto) Lymph # [place] # Seg Neutrophils % POC ABG pH POC ABG pCO2 POC ABG pO2 VBG pH Sodium Potassium Chloride Carbon Dioxide BUN Creatinine Glucose POC Glucose 119 H 164 H 184 H Hemoglobin A1c Lactic Acid Calcium Troponin T Total Protein Albumin Salicylates Acetaminophen 04/27/18 04/27/18 04/27/18 05:23 05:23 05:23 RDW 18.4 H Lymph % (Auto) [place] % (Auto) Lymph # 1.1 L [place] # Seg Neutrophils % 75.9 H POC ABG pH POC ABG pCO2 POC ABG pO2 VBG pH Sodium 136 L Potassium Chloride 94.8 L Carbon Dioxide BUN 21 H Creatinine Glucose 183 H POC Glucose Hemoglobin A1c 7.9 H Lactic Acid Calcium 8.2 L Troponin T Total Protein 6.1 L Albumin 3.8 L Salicylates Acetaminophen 04/27/18 04/27/18 04/27/18 11:45 15:42 21:51 RDW Lymph % (Auto) [place] % (Auto) Lymph # [place] # Seg Neutrophils % POC ABG pH POC ABG pCO2 POC ABG pO2 VBG pH Sodium Potassium Chloride Carbon Dioxide BUN Creatinine Glucose POC Glucose 184 H 108 H 230 H Hemoglobin A1c Lactic Acid Calcium Troponin T Total Protein Albumin Salicylates Acetaminophen 04/28/18 04/28/18 04/28/18 04:57 04:57 07:14 RDW 18.6 H Lymph % (Auto) 11.7 L [place] % (Auto) Lymph # 0.9 L [place] # Seg Neutrophils % 81.6 H POC ABG pH POC ABG pCO2 POC ABG pO2 VBG pH Sodium Potassium Chloride 97.0 L Carbon Dioxide 31 H BUN 27 H Creatinine Glucose 206 H POC Glucose 187 H Hemoglobin A1c Lactic Acid Calcium Troponin T Total Protein Albumin Salicylates Acetaminophen 04/28/18 04/28/18 04/28/18 11:10 17:06 20:53 RDW Lymph % (Auto) [place] % (Auto) Lymph # [place] # Seg Neutrophils % POC ABG pH POC ABG pCO2 POC ABG pO2 VBG pH Sodium Potassium Chloride Carbon Dioxide BUN Creatinine Glucose POC Glucose 240 H 189 H 236 H Hemoglobin A1c Lactic Acid Calcium Troponin T Total Protein Albumin Salicylates Acetaminophen 04/29/18 04/29/18 04/29/18 04:57 04:57 05:01 RDW 18.8 H Lymph % (Auto) [place] % (Auto) Lymph # [place] # Seg Neutrophils % POC ABG pH POC ABG pCO2 POC ABG pO2 VBG pH Sodium Potassium Chloride 96.1 L Carbon Dioxide 33 H BUN 29 H Creatinine Glucose 252 H POC Glucose 237 H Hemoglobin A1c Lactic Acid Calcium Troponin T Total Protein Albumin Salicylates Acetaminophen 04/29/18 04/29/18 04/29/18 12:21 16:42 20:34 RDW Lymph % (Auto) [place] % (Auto) Lymph # [place] # Seg Neutrophils % POC ABG pH POC ABG pCO2 POC ABG pO2 VBG pH Sodium Potassium Chloride Carbon Dioxide BUN Creatinine Glucose POC Glucose 210 H 258 H 226 H Hemoglobin A1c Lactic Acid Calcium Troponin T Total Protein Albumin Salicylates Acetaminophen 04/30/18 04/30/18 04/30/18 05:04 05:04 05:47 RDW 18.1 H Lymph % (Auto) 11.9 L [place] % (Auto) Lymph # 1.0 L [place] # Seg Neutrophils % 82.7 H POC ABG pH POC ABG pCO2 POC ABG pO2 VBG pH Sodium Potassium Chloride 95.6 L Carbon Dioxide 35 H BUN 32 H Creatinine Glucose 225 H POC Glucose 193 H Hemoglobin A1c Lactic Acid Calcium Troponin T Total Protein Albumin Salicylates Acetaminophen 04/30/18 04/30/18 04/30/18 11:36 16:28 20:42 RDW Lymph % (Auto) [place] % (Auto) Lymph # [place] # Seg Neutrophils % POC ABG pH POC ABG pCO2 POC ABG pO2 VBG pH Sodium Potassium Chloride Carbon Dioxide BUN Creatinine Glucose POC Glucose 282 H 259 H 266 H Hemoglobin A1c Lactic Acid Calcium Troponin T Total Protein Albumin Salicylates Acetaminophen 05/01/18 05/01/18 05/01/18 05:52 12:04 16:26 RDW Lymph % (Auto) [place] % (Auto) Lymph # [place] # Seg Neutrophils % POC ABG pH POC ABG pCO2 POC ABG pO2 VBG pH Sodium Potassium Chloride Carbon Dioxide BUN Creatinine Glucose POC Glucose 252 H 292 H 217 H Hemoglobin A1c Lactic Acid Calcium Troponin T Total Protein Albumin Salicylates Acetaminophen 05/01/18 05/02/18 05/02/18 21:07 06:13 12:37 RDW Lymph % (Auto) [place] % (Auto) Lymph # [place] # Seg Neutrophils % POC ABG pH POC ABG pCO2 POC ABG pO2 VBG pH Sodium Potassium Chloride Carbon Dioxide BUN Creatinine Glucose POC Glucose 237 H 263 H 331 H Hemoglobin A1c Lactic Acid Calcium Troponin T Total Protein Albumin Salicylates Acetaminophen 05/02/18 05/02/18 05/03/18 17:38 21:33 06:21 RDW Lymph % (Auto) [place] % (Auto) Lymph # [place] # Seg Neutrophils % POC ABG pH POC ABG pCO2 POC ABG pO2 VBG pH Sodium Potassium Chloride Carbon Dioxide BUN Creatinine Glucose POC Glucose 224 H 241 H 259 H Hemoglobin A1c Lactic Acid Calcium Troponin T Total Protein Albumin Salicylates Acetaminophen 05/03/18 16:03 RDW Lymph % (Auto) [place] % (Auto) Lymph # [place] # Seg Neutrophils % POC ABG pH POC ABG pCO2 POC ABG pO2 VBG pH Sodium Potassium Chloride Carbon Dioxide BUN Creatinine Glucose POC Glucose 287 H Hemoglobin A1c Lactic Acid Calcium Troponin T Total Protein Albumin Salicylates Acetaminophen Allied health notes reviewed: nursing
[2018-05-03] MEDS: SENOKOT PO SCH (22:09)
[2018-05-03] MEDS: DESYREL PO SCH (22:10)
[2018-05-03] MEDS: SINGULAIR PO SCH (22:11)
[2018-05-04] MEDS: ATIVAN PO SCH ×4 (03:00→21:00)
[2018-05-04] MEDS: SOLU-Medrol IV SCH ×3 (04:00→21:00)
[2018-05-04] MEDS: APRESOLINE PO SCH ×3 (06:18→22:30)
[2018-05-04] MEDS: ISORDIL TITRADOSE PO SCH ×3 (06:21→22:31)
[2018-05-04 07:03] LABS: Basophils % (Auto) 0.4 % (0.0-1.8); Hemoglobin 12.8 gm/dl (10.1-14.3); Lymphocytes # (Auto) 1.6 K/mm3 (1.2-5.4); Mean Corpuscular HGB Conc 31 % (30-34); Mean Corpuscular Volume 91 fl (79-97); Monocytes # (Auto) 0.8 K/mm3 (0.0-0.8); Monocytes % (Auto) 7.8 % (0.0-7.3); Platelet Count 250 K/mm3 (140-440); Red Blood Count 4.51 M/mm3 (3.65-5.03); Red Cell Distribution Width 18.2 % (13.2-15.2)
[2018-05-04 07:29] LABS: BUN/Creatinine Ratio 39; Blood Urea Nitrogen 31 mg/dL (7-17); Calcium 9.1 mg/dL (8.4-10.2); Hemolysis Index 34
[2018-05-04] MEDS: HumaLOG SUB-Q SCH ×3 (07:30→22:29)
[2018-05-04] MEDS: DUONEB *Not for PRN Use IH SCH ×3 (08:32→23:03)
[2018-05-04] MEDS: PULMICORT IH SCH ×2 (08:32→23:03)
[2018-05-04] MEDS ORDERED: D50W (25GM) Vial IV STA (08:37)
[2018-05-04] MEDS ORDERED: HumuLIN R IV ONE (09:00)
[2018-05-04] MEDS ORDERED: D50W (25GM) Syringe IV ONE ×2 (09:15→11:51)
--- NOTE | 2018-05-04 09:55 | Progress Note ---
Assessment and Plan Cultures: 04/26/18 blood culture no growth so far 04/26/18 urine culture ESBL E coli Assessment: 47 y/o female with history of morbid obesity, CHF EF 25%, COPD s/p previous trach, morbid obesity, previous colectomy, multiple admissions in the past, known to ID due to admission on 08/21/17 due to ESBL Escherichia coli UTI +/- RLL pneumonia due to H. flu. Re-admitted on 04/26/18 due to worsening SOB and cough for 3 days associated with productive cough with white sputum. 1) Sepsis: Resolved. resolved; etio. pneumonia. UA neg. Blood cx negative. 2) Presumed pneumonia: likely Influenza vs CAP vs HAP (recent admssion). CXR right perihilar infiltrate. Influenza ag neg 3) Acute on chronic resp failure: multifactorial - CHF exacerbation +/- pneumonia 4) ESBL E coli urine colonization: UA not c/w UTI 5) CHF exacerbation Recommendations: - continue contact isolation due to ESBL - f/u legionella/strep urine ag - Monitor off antibiotics -ok to be discharged from ID standpoint -ID is signing off [facility] M: [phone] O:[phone] Subjective Date of service: 05/04/18 Principal diagnosis: fever Interval history: Patient seen and examined. Screaming and agitated today about going home. Objective - Exam Narrative Exam: Constitutional: Alert, screaming, agitated Morbidly obese Head, Ears, Nose: Normocephalic, atraumatic. External ears, nose normal Breast: no mastitis, warmth or tenderness, soft no lumps, not lactating , no nipple drainage Eyes: Conjunctivae/corneas clear. No icterus. No ptosis. Neck: Supple, no meningeal signs Oral: dentition good, no thrush Cardiovascular: S1, S2 normal Respiratory: exam limited GI: exam limited Musculoskeletal: exam limited Skin: No rash or abscess. Hem/Lymphatic: No palpable cervical or supraclavicular nodes. No lymphangitis Psych: Mood agitated Neurological: Awake, alert, agitated - Constitutional Vitals: Vital Signs Temp Pulse Resp BP Pulse Ox 98.4 F 74 20 161/104 96 05/04/18 08:32 05/04/18 08:32 05/04/18 08:32 05/04/18 08:32 05/04/18 08:41 Temperature -Last 24 Hours Temperature 98.4 F Temperature 122.0 F Temperature 97.5 F Temperature 97.5 F Temperature 98.4 F - Labs CBC & Chem 7: 05/04/18 04:56 05/04/18 04:56 Labs: Abnormal lab results 05/03/18 05/03/18 05/04/18 Range/Units 16:03 20:59 04:56 RDW 18.2 H (13.2-15.2) % [place] % (Auto) 7.8 H (0.0-7.3) % Seg Neutrophils % 75.8 H (40.0-70.0) % Sodium (137-145) mmol/L Potassium (3.6-5.0) mmol/L Chloride (98-107) mmol/L BUN (7-17) mg/dL Glucose (65-100) mg/dL POC Glucose 287 H 304 H (70-105) 05/04/18 05/04/18 Range/Units 04:56 05:31 RDW (13.2-15.2) % [place] % (Auto) (0.0-7.3) % Seg Neutrophils % (40.0-70.0) % Sodium 136 L (137-145) mmol/L Potassium 5.2 H (3.6-5.0) mmol/L Chloride 93.4 L (98-107) mmol/L BUN 31 H (7-17) mg/dL Glucose 264 H (65-100) mg/dL POC Glucose 221 H (70-105)
[2018-05-04] MEDS ORDERED: KIONEX PO ONE (10:00)
[2018-05-04] MEDS: COZAAR PO SCH (11:24)
[2018-05-04] MEDS: PEPCID PO SCH (11:25)
[2018-05-04] MEDS: CLARITIN PO SCH (11:25)
[2018-05-04] MEDS: DOLOPHINE PO SCH ×2 (11:25→22:28)
[2018-05-04] MEDS: ALDACTONE PO SCH (11:26)
[2018-05-04] MEDS: COREG PO SCH ×2 (11:26→22:31)
[2018-05-04] MEDS: ECOTRIN PO SCH (11:26)
[2018-05-04] MEDS: LASIX IV SCH (11:28)
[2018-05-04] MEDS: SODIUM CHLORIDE FLUSH SYRINGE 10 ML IV SCH ×2 (11:28→22:34)
[2018-05-04] MEDS: CEPHULAC PO SCH ×2 (11:29→22:30)
[2018-05-04] MEDS: FLONASE NS SCH ×3 (11:29→22:32)
[2018-05-04] MEDS: COLACE PO SCH ×2 (11:40→22:28)
[2018-05-04] MEDS: SORBITOL 70% PO SCH (13:42)
--- NOTE | 2018-05-04 13:46 | Progress Note ---
Assessment and Plan Patient alert, awake. Says feeling some what better to day. Patient Goes on BIPAP during night time. Patient Presently on 3 litres O2. O2 saturation 96%.. - Patient Problems (1) Acute and chronic respiratory failure with hypercapnia Current Visit: Yes Status: Acute Plan to address problem: Placing her on 3 litres O2 and monitor saturation. BIPAP 16/6, rate 16, FIO2 35% Albuterol/atrovent aerosol treatments q 6 hours. Continue I/V solumedral. SCDs Continue Famotidine (2) Acute exacerbation of CHF (congestive heart failure) Current Visit: Yes Status: Acute Qualifiers: Heart failure type: combined systolic and diastolic Qualified Code(s): I50.43 - Acute on chronic combined systolic (congestive) and diastolic (congestive) heart failure Plan to address problem: Management as per cardiology. (3) Acute kidney injury Current Visit: Yes Status: Acute Plan to address problem: Management as per nephrology. (4) COPD exacerbation Current Visit: No Status: Acute Plan to address problem: Placing her on 4 litres O2 and monitor saturation. BIPAP 16/6, rate 16, FIO2 35% Albuterol/atrovent aerosol treatments q 6 hours. Continue I/V solumedral. SCDs Continue Famotidine Continue Levaquin. (5) Sleep apnea syndrome Current Visit: No Status: Acute Plan to address problem: BIPAP 16/6, rate 16, FIO2 35%. Recommend to loose weight. Explained sleep apnea. Subjective Date of service: 05/04/18 Principal diagnosis: fever Interval history: Patient alert, awake. Says feeling some what better to day. Patient Goes on BIPAP during night time. Patient Presently on 3 litres O2. O2 saturation 96%. Objective Vital Signs - 12hr 05/04/18 05/04/18 05/04/18 03:33 05:19 06:18 Temperature 122.0 F H Pulse Rate 72 92 H Pulse Rate [ Anterior Bilateral Throughout] Pulse Rate [ Throughout] Respiratory 17 Rate Respiratory Rate [Anterior Bilateral Throughout] Respiratory Rate [ Throughout] Blood Pressure 104/70 104/70 Blood Pressure [Left] O2 Sat by Pulse 98 95 Oximetry 05/04/18 05/04/18 05/04/18 06:21 08:00 08:32 Temperature 98.4 F Pulse Rate 92 H 74 Pulse Rate [ 68 Anterior Bilateral Throughout] Pulse Rate [ 74 Throughout] Respiratory 20 Rate Respiratory 20 Rate [Anterior Bilateral Throughout] Respiratory 18 Rate [ Throughout] Blood Pressure 104/70 Blood Pressure 161/104 [Left] O2 Sat by Pulse 90 Oximetry 05/04/18 05/04/18 05/04/18 08:41 10:56 11:24 Temperature 98.4 F Pulse Rate 80 Pulse Rate [ Anterior Bilateral Throughout] Pulse Rate [ Throughout] Respiratory 20 Rate Respiratory Rate [Anterior Bilateral Throughout] Respiratory Rate [ Throughout] Blood Pressure 119/73 Blood Pressure [Left] O2 Sat by Pulse 96 Oximetry 05/04/18 11:26 Temperature Pulse Rate 80 Pulse Rate [ Anterior Bilateral Throughout] Pulse Rate [ Throughout] Respiratory Rate Respiratory Rate [Anterior Bilateral Throughout] Respiratory Rate [ Throughout] Blood Pressure Blood Pressure [Left] O2 Sat by Pulse Oximetry Constitutional: no acute distress, alert, other (middle aged AAF, normocephalic and atraumatic with increased respiratory effort at rest) Eyes: non-icteric ENT: oropharynx moist, other (mallampati 3) Neck: supple, no JVD, other (no thyromegaly) Effort: mildly labored Ascultation: Bilateral: diminished breath sounds, wheezes, rhonchi Percussion: Bilateral: not dull Cardiovascular: regular rate and rhythm Gastrointestinal: normoactive bowel sounds, soft, non-tender, non-distended Integumentary: normal Extremities: no cyanosis, no edema, pulses normal, no ischemia or petechiae Neurologic: non-focal exam, pupils equal and round, CN II-XII normal, motor strength normal and Psychiatric: mood appropriate, affect normal CBC and BMP: 05/04/18 04:56 05/04/18 04:56 ABG, PT/INR, D-dimer: ABG POC ABG pH 7.316 (7.35-7.45) L 04/26/18 15:32 POC ABG pCO2 68.5 (35-45) H 04/26/18 15:32 POC ABG pO2 63 (80-105) L 04/26/18 15:32 POC ABG HCO3 35.0 04/26/18 15:32 POC ABG Total CO2 37 04/26/18 15:32 POC ABG O2 Sat 89 04/26/18 15:32 PT/INR, D-dimer PT 13.4 Sec. (12.2-14.9) 04/29/18 04:57 INR 0.98 (0.87-1.13) 04/29/18 04:57 Abnormal lab findings: Abnormal Labs 04/26/18 04/26/18 04/26/18 11:19 11:19 11:19 RDW 19.3 H Lymph % (Auto) [place] % (Auto) 10.2 H Lymph # [place] # 0.9 H Seg Neutrophils % POC ABG pH POC ABG pCO2 POC ABG pO2 VBG pH Sodium 136 L Potassium 5.6 H Chloride 96.9 L Carbon Dioxide BUN Creatinine 1.3 H Glucose 113 H POC Glucose Hemoglobin A1c Lactic Acid 2.10 H* Calcium Troponin T Total Protein Albumin Salicylates Acetaminophen 04/26/18 04/26/18 04/26/18 11:19 11:19 11:30 RDW Lymph % (Auto) [place] % (Auto) Lymph # [place] # Seg Neutrophils % POC ABG pH POC ABG pCO2 POC ABG pO2 VBG pH 7.292 L Sodium Potassium Chloride Carbon Dioxide BUN Creatinine Glucose POC Glucose Hemoglobin A1c Lactic Acid Calcium Troponin T 0.175 H* Total Protein Albumin Salicylates < 0.3 L Acetaminophen 04/26/18 04/26/18 04/26/18 11:30 13:14 15:32 RDW Lymph % (Auto) [place] % (Auto) Lymph # [place] # Seg Neutrophils % POC ABG pH 7.277 L 7.316 L POC ABG pCO2 70.5 H 68.5 H POC ABG pO2 27 L 63 L VBG pH Sodium Potassium Chloride Carbon Dioxide BUN Creatinine Glucose POC Glucose Hemoglobin A1c Lactic Acid Calcium Troponin T Total Protein Albumin Salicylates Acetaminophen < 5.0 L 04/26/18 04/26/18 04/27/18 17:56 21:56 05:19 RDW Lymph % (Auto) [place] % (Auto) Lymph # [place] # Seg Neutrophils % POC ABG pH POC ABG pCO2 POC ABG pO2 VBG pH Sodium Potassium Chloride Carbon Dioxide BUN Creatinine Glucose POC Glucose 119 H 164 H 184 H Hemoglobin A1c Lactic Acid Calcium Troponin T Total Protein Albumin Salicylates Acetaminophen 04/27/18 04/27/18 04/27/18 05:23 05:23 05:23 RDW 18.4 H Lymph % (Auto) [place] % (Auto) Lymph # 1.1 L [place] # Seg Neutrophils % 75.9 H POC ABG pH POC ABG pCO2 POC ABG pO2 VBG pH Sodium 136 L Potassium Chloride 94.8 L Carbon Dioxide BUN 21 H Creatinine Glucose 183 H POC Glucose Hemoglobin A1c 7.9 H Lactic Acid Calcium 8.2 L Troponin T Total Protein 6.1 L Albumin 3.8 L Salicylates Acetaminophen 04/27/18 04/27/18 04/27/18 11:45 15:42 21:51 RDW Lymph % (Auto) [place] % (Auto) Lymph # [place] # Seg Neutrophils % POC ABG pH POC ABG pCO2 POC ABG pO2 VBG pH Sodium Potassium Chloride Carbon Dioxide BUN Creatinine Glucose POC Glucose 184 H 108 H 230 H Hemoglobin A1c Lactic Acid Calcium Troponin T Total Protein Albumin Salicylates Acetaminophen 04/28/18 04/28/18 04/28/18 04:57 04:57 07:14 RDW 18.6 H Lymph % (Auto) 11.7 L [place] % (Auto) Lymph # 0.9 L [place] # Seg Neutrophils % 81.6 H POC ABG pH POC ABG pCO2 POC ABG pO2 VBG pH Sodium Potassium Chloride 97.0 L Carbon Dioxide 31 H BUN 27 H Creatinine Glucose 206 H POC Glucose 187 H Hemoglobin A1c Lactic Acid Calcium Troponin T Total Protein Albumin Salicylates Acetaminophen 04/28/18 04/28/18 04/28/18 11:10 17:06 20:53 RDW Lymph % (Auto) [place] % (Auto) Lymph # [place] # Seg Neutrophils % POC ABG pH POC ABG pCO2 POC ABG pO2 VBG pH Sodium Potassium Chloride Carbon Dioxide BUN Creatinine Glucose POC Glucose 240 H 189 H 236 H Hemoglobin A1c Lactic Acid Calcium Troponin T Total Protein Albumin Salicylates Acetaminophen 04/29/18 04/29/18 04/29/18 04:57 04:57 05:01 RDW 18.8 H Lymph % (Auto) [place] % (Auto) Lymph # [place] # Seg Neutrophils % POC ABG pH POC ABG pCO2 POC ABG pO2 VBG pH Sodium Potassium Chloride 96.1 L Carbon Dioxide 33 H BUN 29 H Creatinine Glucose 252 H POC Glucose 237 H Hemoglobin A1c Lactic Acid Calcium Troponin T Total Protein Albumin Salicylates Acetaminophen 04/29/18 04/29/18 04/29/18 12:21 16:42 20:34 RDW Lymph % (Auto) [place] % (Auto) Lymph # [place] # Seg Neutrophils % POC ABG pH POC ABG pCO2 POC ABG pO2 VBG pH Sodium Potassium Chloride Carbon Dioxide BUN Creatinine Glucose POC Glucose 210 H 258 H 226 H Hemoglobin A1c Lactic Acid Calcium Troponin T Total Protein Albumin Salicylates Acetaminophen 04/30/18 04/30/18 04/30/18 05:04 05:04 05:47 RDW 18.1 H Lymph % (Auto) 11.9 L [place] % (Auto) Lymph # 1.0 L [place] # Seg Neutrophils % 82.7 H POC ABG pH POC ABG pCO2 POC ABG pO2 VBG pH Sodium Potassium Chloride 95.6 L Carbon Dioxide 35 H BUN 32 H Creatinine Glucose 225 H POC Glucose 193 H Hemoglobin A1c Lactic Acid Calcium Troponin T Total Protein Albumin Salicylates Acetaminophen 04/30/18 04/30/18 04/30/18 11:36 16:28 20:42 RDW Lymph % (Auto) [place] % (Auto) Lymph # [place] # Seg Neutrophils % POC ABG pH POC ABG pCO2 POC ABG pO2 VBG pH Sodium Potassium Chloride Carbon Dioxide BUN Creatinine Glucose POC Glucose 282 H 259 H 266 H Hemoglobin A1c Lactic Acid Calcium Troponin T Total Protein Albumin Salicylates Acetaminophen 05/01/18 05/01/18 05/01/18 05:52 12:04 16:26 RDW Lymph % (Auto) [place] % (Auto) Lymph # [place] # Seg Neutrophils % POC ABG pH POC ABG pCO2 POC ABG pO2 VBG pH Sodium Potassium Chloride Carbon Dioxide BUN Creatinine Glucose POC Glucose 252 H 292 H 217 H Hemoglobin A1c Lactic Acid Calcium Troponin T Total Protein Albumin Salicylates Acetaminophen 05/01/18 05/02/18 05/02/18 21:07 06:13 12:37 RDW Lymph % (Auto) [place] % (Auto) Lymph # [place] # Seg Neutrophils % POC ABG pH POC ABG pCO2 POC ABG pO2 VBG pH Sodium Potassium Chloride Carbon Dioxide BUN Creatinine Glucose POC Glucose 237 H 263 H 331 H Hemoglobin A1c Lactic Acid Calcium Troponin T Total Protein Albumin Salicylates Acetaminophen 05/02/18 05/02/18 05/03/18 17:38 21:33 06:21 RDW Lymph % (Auto) [place] % (Auto) Lymph # [place] # Seg Neutrophils % POC ABG pH POC ABG pCO2 POC ABG pO2 VBG pH Sodium Potassium Chloride Carbon Dioxide BUN Creatinine Glucose POC Glucose 224 H 241 H 259 H Hemoglobin A1c Lactic Acid Calcium Troponin T Total Protein Albumin Salicylates Acetaminophen 05/03/18 05/03/18 05/04/18 16:03 20:59 04:56 RDW 18.2 H Lymph % (Auto) [place] % (Auto) 7.8 H Lymph # [place] # Seg Neutrophils % 75.8 H POC ABG pH POC ABG pCO2 POC ABG pO2 VBG pH Sodium Potassium Chloride Carbon Dioxide BUN Creatinine Glucose POC Glucose 287 H 304 H Hemoglobin A1c Lactic Acid Calcium Troponin T Total Protein Albumin Salicylates Acetaminophen 05/04/18 05/04/18 05/04/18 04:56 05:31 10:55 RDW Lymph % (Auto) [place] % (Auto) Lymph # [place] # Seg Neutrophils % POC ABG pH POC ABG pCO2 POC ABG pO2 VBG pH Sodium 136 L Potassium 5.2 H Chloride 93.4 L Carbon Dioxide BUN 31 H Creatinine Glucose 264 H POC Glucose 221 H 298 H Hemoglobin A1c Lactic Acid Calcium Troponin T Total Protein Albumin Salicylates Acetaminophen Allied health notes reviewed: nursing
--- NOTE | 2018-05-04 14:40 | Progress Note ---
Assessment and Plan Assessment and plan: Sepsis. Continue Tamiflu and doxycycline per ID recommendations. Presumed pneumonia. Etiology likely Influenza vs CAP vs HAP (recent admssion). CXR right perihilar infiltrate. Follow-up Legionella/strep urine antigen Acute on chronic hypoxemic respiratory failure. Continue BiPAP as clinically indicated. Patient is DO NOT INTUBATE. Etiology is multifactorial secondary to decompensated heart failure, COPD exacerbation and probable SHANIQUE/OHS. Acute COPD exacerbation. Nebulizer treatments IV Solu-Medrol and IV antibiotics Pulmicort inhalation twice a day Acute on chronic systolic heart failure. Cardiology recommends right left heart catheterization but patient refused. Dilated Nonischemic Cardiomyopathy LHC at [facility] in 2013: no significant CAD, EF 45% moderately decrease LVEF 20-25% by echo 08/2017 Cardiology . Acute kidney injury. Resolved. Hyperlipidemia. Continued statins. Tobacco abuse. Patient reports smoking since age 14. Counseling on smoking cessation. Hypertension. Cont. antihypertensive medications. Diabetes mellitus type 2. Continue home insulin and coverage Hemoglobin A1c is 7.9. Hyperkalemia. Give kayexalate, Insulin, recheck Disposition Likely discharge tomorrow if Potassium normal History Interval history: Feels better, No fever No more SOB Hospitalist Physical - Physical exam Narrative exam: GEN: Not in acute distress,lying in bed,morbidly obese HEENT: Normocephalic, atraumatic, Neck: supple, No JVD Lungs:Bilateral rhonchi, wheeze Heart:S1 and S2 regular, no murmurs, rubs or gallop, Abd:soft, non tender, non distended, normal bowel sounds Ext: No edema, no clubbing or cyanosis Neuro: Awake,alert, oriented x 3, No focal signs Psych:Normal mood - Constitutional Vitals: Temp Pulse Resp BP Pulse Ox 98.4 F 75 20 119/73 96 05/04/18 10:56 05/04/18 14:06 05/04/18 10:56 05/04/18 10:56 05/04/18 08:41 General appearance: Present: no acute distress, obese Results - Labs CBC & Chem 7: 05/04/18 04:56 05/04/18 20:14 Labs: Laboratory Last Values WBC 10.2 K/mm3 (4.5-11.0) 05/04/18 04:56 RBC 4.51 M/mm3 (3.65-5.03) 05/04/18 04:56 Hgb 12.8 gm/dl (10.1-14.3) 05/04/18 04:56 Hct 41.0 % (30.3-42.9) 05/04/18 04:56 MCV 91 fl (79-97) 05/04/18 04:56 MCH 28 pg (28-32) 05/04/18 04:56 MCHC 31 % (30-34) 05/04/18 04:56 RDW 18.2 % (13.2-15.2) H 05/04/18 04:56 Plt Count 250 K/mm3 (140-440) 05/04/18 04:56 Lymph % (Auto) 16.0 % (13.4-35.0) 05/04/18 04:56 [place] % (Auto) 7.8 % (0.0-7.3) H 05/04/18 04:56 Eos % (Auto) 0.0 % (0.0-4.3) 05/04/18 04:56 Baso % (Auto) 0.4 % (0.0-1.8) 05/04/18 04:56 Lymph # 1.6 K/mm3 (1.2-5.4) 05/04/18 04:56 [place] # 0.8 K/mm3 (0.0-0.8) 05/04/18 04:56 Eos # 0.0 K/mm3 (0.0-0.4) 05/04/18 04:56 Baso # 0.0 K/mm3 (0.0-0.1) 05/04/18 04:56 Seg Neutrophils % 75.8 % (40.0-70.0) H 05/04/18 04:56 Seg Neutrophils # 7.7 K/mm3 (1.8-7.7) 05/04/18 04:56 PT 13.4 Sec. (12.2-14.9) 04/29/18 04:57 INR 0.98 (0.87-1.13) 04/29/18 04:57 APTT 30.9 Sec. (24.2-36.6) 04/26/18 11:19 POC ABG pH 7.316 (7.35-7.45) L 04/26/18 15:32 POC ABG pCO2 68.5 (35-45) H 04/26/18 15:32 POC ABG pO2 63 (80-105) L 04/26/18 15:32 POC ABG HCO3 35.0 04/26/18 15:32 POC ABG Total CO2 37 04/26/18 15:32 POC ABG O2 Sat 89 04/26/18 15:32 POC ABG Base Excess 9 04/26/18 15:32 VBG pH 7.292 (7.320-7.420) L 04/26/18 11:19 FiO2 45 % 04/26/18 15:32 Sodium 136 mmol/L (137-145) L 05/04/18 04:56 Potassium 5.2 mmol/L (3.6-5.0) H 05/04/18 04:56 Chloride 93.4 mmol/L (98-107) L 05/04/18 04:56 Carbon Dioxide 30 mmol/L (22-30) 05/04/18 04:56 Anion Gap 18 mmol/L 05/04/18 04:56 BUN 31 mg/dL (7-17) H 05/04/18 04:56 Creatinine 0.8 mg/dL (0.7-1.2) 05/04/18 04:56 Estimated GFR > 60 ml/min 05/04/18 04:56 BUN/Creatinine Ratio 39 % 05/04/18 04:56 Glucose 264 mg/dL (65-100) H 05/04/18 04:56 POC Glucose 298 (70-105) H 05/04/18 10:55 Hemoglobin A1c 7.9 % (4-6) H 04/27/18 05:23 Lactic Acid 0.90 mmol/L (0.7-2.0) 04/26/18 15:50 Calcium 9.1 mg/dL (8.4-10.2) 05/04/18 04:56 Total Bilirubin 0.20 mg/dL (0.1-1.2) 04/27/18 05:23 AST 19 units/L (5-40) 04/27/18 05:23 ALT 22 units/L (7-56) 04/27/18 05:23 Alkaline Phosphatase 76 units/L (35-129) 04/27/18 05:23 Total Creatine Kinase 131 units/L (30-135) 04/26/18 11:30 Troponin T 0.175 ng/mL (0.00-0.029) H* 04/26/18 11:19 C-Reactive Protein 1.10 mg/dL (0.00-1.30) 04/28/18 17:34 Total Protein 6.1 g/dL (6.3-8.2) L 04/27/18 05:23 Albumin 3.8 g/dL (3.9-5) L 04/27/18 05:23 Albumin/Globulin Ratio 1.7 % 04/27/18 05:23 Triglycerides 62 mg/dL (2-149) 04/26/18 11:19 Cholesterol 110 mg/dL (50-199) 04/26/18 11:19 LDL Cholesterol Direct 51 mg/dL (50-130) 04/26/18 11:19 HDL Cholesterol 52 mg/dL (40-59) 04/26/18 11:19 Cholesterol/HDL Ratio 2.11 % 04/26/18 11:19 Urine Color Yellow (Yellow) 04/26/18 12:05 Urine Turbidity Slightly-cloudy (Clear) 04/26/18 12:05 Urine pH 5.0 (5.0-7.0) 04/26/18 12:05 Ur Specific [place] 1.006 (1.003-1.030) 04/26/18 12:05 Urine Protein <15 mg/dl mg/dL (Negative) 04/26/18 12:05 Urine Glucose (UA) Neg mg/dL (Negative) 04/26/18 12:05 Urine Ketones Neg mg/dL (Negative) 04/26/18 12:05 Urine Blood Neg (Negative) 04/26/18 12:05 Urine Nitrite Neg (Negative) 04/26/18 12:05 Urine Bilirubin Neg (Negative) 04/26/18 12:05 Urine Urobilinogen < 2.0 mg/dL (<2.0) 04/26/18 12:05 Ur Leukocyte Esterase Tr (Negative) 04/26/18 12:05 Urine WBC (Auto) 3.0 /HPF (0.0-6.0) 04/26/18 12:05 Urine RBC (Auto) 6.0 /HPF (0.0-6.0) 04/26/18 12:05 Urine Bacteria (Auto) 2+ /HPF (Negative) 04/26/18 12:05 Salicylates < 0.3 mg/dL (2.8-20.0) L 04/26/18 11:30 Acetaminophen < 5.0 ug/mL (10.0-30.0) L 04/26/18 11:30 Influenza A (Rapid) Negative (Negative) 04/29/18 15:50 Influenza B (Rapid) Negative (Negative) 04/29/18 15:50 Miscellaneous Test Flexitest 1 04/28/18 06:48 Nutrition/Malnutrition Assess - Dietary Evaluation Nutrition/Malnutrition Findings: Nutrition Notes Start: 05/03/18 15:35 Freq: Status: Active Protocol: Document 05/03/18 15:36 OL (Rec: 05/03/18 15:42 OL [id number]) Nutrition Notes Need for Assessment generated from: LOS Initial or Follow up Brief Note Current Diet cardiac/consistent CHO Subjective/Other Information RD screen for LOS. Pt. reports eating well, 100% of most meals. Pt. denies N/V/C/D. Pt. used to [facility] between meals [facility] and is requesting bananas and cookies. Discussed diet order, CHO controlled restrictions, blood sugar levels with pt. Will update chart to reflect preferences and add diabetic ONS for snack . Pt. with no other questions/ concerns at this time. Burn Absent Trauma Absent Nutrition Intervention Revisit per MD consult or patient Sign Off request:
[2018-05-04 21:12] LABS: BUN/Creatinine Ratio 34; Blood Urea Nitrogen 31 mg/dL (7-17); Calcium 9.1 mg/dL (8.4-10.2); Hemolysis Index 13
[2018-05-04] MEDS: DESYREL PO SCH (22:27)
[2018-05-04] MEDS: SINGULAIR PO SCH (22:27)
[2018-05-04] MEDS: SENOKOT PO SCH (22:28)
[2018-05-05] MEDS: SORBITOL 70% PO SCH ×2 (01:36→10:09)
[2018-05-05] MEDS: SOLU-Medrol IV SCH ×2 (05:06→13:59)
[2018-05-05] MEDS: ATIVAN PO SCH ×2 (05:07→10:22)
[2018-05-05] MEDS: ISORDIL TITRADOSE PO SCH (05:18)
[2018-05-05] MEDS: APRESOLINE PO SCH (05:21)
[2018-05-05] MEDS: HumaLOG SUB-Q SCH ×2 (07:30→12:09)
[2018-05-05] MEDS: DUONEB *Not for PRN Use IH SCH ×2 (08:55→14:51)
[2018-05-05] MEDS: PULMICORT IH SCH (08:55)
[2018-05-05] MEDS: ECOTRIN PO SCH (10:04)
[2018-05-05] MEDS: CEPHULAC PO SCH (10:04)
[2018-05-05] MEDS: COLACE PO SCH (10:04)
[2018-05-05] MEDS: CLARITIN PO SCH (10:04)
[2018-05-05] MEDS: COREG PO SCH (10:06)
[2018-05-05] MEDS: COZAAR PO SCH (10:07)
[2018-05-05] MEDS: LASIX IV SCH (10:08)
[2018-05-05] MEDS: PEPCID PO SCH (10:08)
[2018-05-05] MEDS: SODIUM CHLORIDE FLUSH SYRINGE 10 ML IV SCH (10:09)
[2018-05-05] MEDS: ALDACTONE PO SCH (10:10)
[2018-05-05] MEDS: DOLOPHINE PO SCH (10:13)
[2018-05-05] MEDS: FLONASE NS SCH (10:17)
--- NOTE | 2018-05-05 11:04 | Discharge Summary ---
Providers - Providers Date of Admission: 04/26/18 12:21 Date of discharge: 05/05/18 Attending physician: STEPHANIE TALLEY 04/26/18 14:48 Consult to Physician [CONS] Routine Comment: Consulting Provider: MAYTE KOVACS Physician Instructions: Reason For Exam: COPD exacerbation 04/28/18 13:16 Consult to Physician [CONS] Routine Comment: Consulting Provider: YOVANI HOFFMAN Physician Instructions: Reason For Exam: ESBL 05/03/18 10:48 Physical Therapy Evaluation and Treat [CONS] Routine Comment: Reason For Exam: discharge planning. Assistive devices?: pt is almost 300 pounds Date of last referral: 05/03/18 05/04/18 12:25 Consult to Dietitian/Nutrition [CONS] Stat Physician Instructions: dietary /nutrition consult lacy Reason For Exam: non- compliance Reason for Consult: Diet education Primary care physician: [employer] Hospitalization Condition: Fair Hospital course: Patient is 47 yo presented with shortness of breath. She was diagnosed with acute on chronic resp failure due to COPD exacerbation, pneumonia, CHF exacerbation. Sepsis. Continue Tamiflu and doxycycline per ID recommendations. Presumed pneumonia. Etiology likely Influenza vs CAP vs HAP (recent admssion). CXR right perihilar infiltrate. Follow-up Legionella/strep urine antigen Acute on chronic hypoxemic respiratory failure. Etiology is multifactorial secondary to decompensated heart failure, COPD exacerbation and probable SHANIQUE/OHS. Acute COPD exacerbation. Nebulizer treatments IV Solu-Medrol and IV antibiotics Pulmicort inhalation twice a day Acute on chronic systolic heart failure. Cardiology recommends right left heart catheterization but patient refused. Dilated Nonischemic Cardiomyopathy LHC at [facility] in 2013: no significant CAD, EF 45% moderately decrease LVEF 20-25% by echo 08/2017 Cardiology . Acute kidney injury. Resolved. Hyperlipidemia. Continued statins. Tobacco abuse. Patient reports smoking since age 14. Counseling on smoking cessation. Hypertension. Cont. antihypertensive medications. Diabetes mellitus type 2. Continue home insulin and coverage Hemoglobin A1c is 7.9. Total time spent on discharge, 34 mins Disposition: [id number]/[id number] SNF W [facility] CERT - Discharge Diagnoses (1) Acute and chronic respiratory failure with hypercapnia Status: Acute (2) Acute exacerbation of CHF (congestive heart failure) Status: Acute Qualifiers: Heart failure type: combined systolic and diastolic Qualified Code(s): I50.43 - Acute on chronic combined systolic (congestive) and diastolic (congestive) heart failure (3) Acute on chronic systolic heart failure Status: Acute (4) Bipolar 1 disorder Status: Acute (5) COPD exacerbation Status: Acute (6) Dilated cardiomyopathy Status: Acute (7) GERD (gastroesophageal reflux disease) Status: Acute Qualifiers: Esophagitis presence: without esophagitis Qualified Code(s): K21.9 - Gastro-esophageal reflux disease without esophagitis (8) Hyperkalemia Status: Acute (9) Pneumonia Status: Acute Qualifiers: Pneumonia type: due to unspecified organism Laterality: right Lung location: unspecified part of lung Qualified Code(s): J18.9 - Pneumonia, unspecified organism (10) Sepsis Status: Acute (11) Hyperlipidemia Status: Chronic Qualifiers: Hyperlipidemia type: mixed hyperlipidemia Qualified Code(s): E78.2 - Mixed hyperlipidemia (12) Hypertension Status: Chronic Qualifiers: (13) T2DM (type 2 diabetes mellitus) Status: Chronic Core Measure Documentation - Palliative Care Palliative Care/ Comfort Measures: Not Applicable - Core Measures Any of the following diagnoses?: heart failure - Heart Failure Discharge Requirements IVONE/ARB for LVSD if EF <40%: Yes Beta pedro at discharge: Yes Exam - Constitutional Vitals: Temp Pulse Resp BP Pulse Ox 97.6 F 84 20 98/53 93 05/05/18 10:00 05/05/18 10:10 05/05/18 10:13 05/05/18 10:10 05/05/18 10:00 Plan Activity: advance as tolerated Diet: low fat, low cholesterol, low salt, diabetic Additional Instructions: 1.Follow up with Physician at SNF in 2-3 days. 2.Follow up with Dr. Morris, Pulmonology in 1 week. 3.Follow up with Dr. williamson, cardiology in 1 week. 4.Continue Oxygen continuous at 3l/min Follow up with: PRIMARY CAREMD [Primary Care Provider] - 3-5 Days
--- NOTE | 2018-05-05 11:17 | Progress Note ---
Assessment and Plan Patient alert, awake. Says feeling some what better to day. Patient Goes on BIPAP during night time. Patient Presently on 3 litres O2. O2 saturation 93%.. - Patient Problems (1) Acute and chronic respiratory failure with hypercapnia Current Visit: Yes Status: Acute Plan to address problem: Placing her on 3 litres O2 and monitor saturation. BIPAP 16/6, rate 16, FIO2 35% Albuterol/atrovent aerosol treatments q 6 hours. Continue I/V solumedral. SCDs Continue Famotidine (2) Acute exacerbation of CHF (congestive heart failure) Current Visit: Yes Status: Acute Qualifiers: Heart failure type: combined systolic and diastolic Qualified Code(s): I50.43 - Acute on chronic combined systolic (congestive) and diastolic (congestive) heart failure Plan to address problem: Management as per cardiology. (3) Acute kidney injury Current Visit: Yes Status: Acute Plan to address problem: Management as per nephrology. (4) COPD exacerbation Current Visit: No Status: Acute Plan to address problem: Placing her on 4 litres O2 and monitor saturation. BIPAP 16/6, rate 16, FIO2 35% Albuterol/atrovent aerosol treatments q 6 hours. Continue I/V solumedral. SCDs Continue Famotidine Continue Levaquin. (5) Sleep apnea syndrome Current Visit: No Status: Acute Plan to address problem: BIPAP 16/6, rate 16, FIO2 35%. Recommend to loose weight. Explained sleep apnea. Subjective Date of service: 05/05/18 Principal diagnosis: fever Interval history: Patient alert, awake. Says feeling some what better to day. Patient Goes on BIPAP during night time. Patient Presently on 3 litres O2. O2 saturation 93%. Objective Vital Signs - 12hr 05/04/18 05/05/18 05/05/18 23:54 05:14 05:18 Temperature 98.1 F 97.4 F L Pulse Rate 85 69 69 Pulse Rate [ Throughout] Respiratory 20 20 Rate Respiratory Rate [ Throughout] Blood Pressure 112/60 133/73 133/73 Blood Pressure [Left] O2 Sat by Pulse 94 96 Oximetry 05/05/18 05/05/18 05/05/18 05:21 09:00 09:10 Temperature Pulse Rate 69 Pulse Rate [ 84 86 Throughout] Respiratory Rate Respiratory 18 18 Rate [ Throughout] Blood Pressure 133/73 Blood Pressure [Left] O2 Sat by Pulse 94 Oximetry 05/05/18 05/05/18 05/05/18 10:00 10:06 10:07 Temperature 97.6 F Pulse Rate 84 84 84 Pulse Rate [ Throughout] Respiratory 20 Rate Respiratory Rate [ Throughout] Blood Pressure 98/53 98/53 Blood Pressure 98/53 [Left] O2 Sat by Pulse 93 Oximetry 05/05/18 05/05/18 10:10 10:13 Temperature Pulse Rate 84 Pulse Rate [ Throughout] Respiratory 20 Rate Respiratory Rate [ Throughout] Blood Pressure 98/53 Blood Pressure [Left] O2 Sat by Pulse Oximetry Constitutional: no acute distress, alert, other (middle aged AAF, normocephalic and atraumatic with increased respiratory effort at rest) Eyes: non-icteric ENT: oropharynx moist, other (mallampati 3) Neck: supple, no JVD, other (no thyromegaly) Effort: mildly labored Ascultation: Bilateral: diminished breath sounds, wheezes, rhonchi Percussion: Bilateral: not dull Cardiovascular: regular rate and rhythm Gastrointestinal: normoactive bowel sounds, soft, non-tender, non-distended Integumentary: normal Extremities: no cyanosis, no edema, pulses normal, no ischemia or petechiae Neurologic: non-focal exam, pupils equal and round, CN II-XII normal, motor strength normal and Psychiatric: mood appropriate, affect normal CBC and BMP: 05/04/18 04:56 05/04/18 20:14 ABG, PT/INR, D-dimer: ABG POC ABG pH 7.316 (7.35-7.45) L 04/26/18 15:32 POC ABG pCO2 68.5 (35-45) H 04/26/18 15:32 POC ABG pO2 63 (80-105) L 04/26/18 15:32 POC ABG HCO3 35.0 04/26/18 15:32 POC ABG Total CO2 37 04/26/18 15:32 POC ABG O2 Sat 89 04/26/18 15:32 PT/INR, D-dimer PT 13.4 Sec. (12.2-14.9) 04/29/18 04:57 INR 0.98 (0.87-1.13) 04/29/18 04:57 Abnormal lab findings: Abnormal Labs 04/26/18 04/26/18 04/26/18 11:19 11:19 11:19 RDW 19.3 H Lymph % (Auto) [place] % (Auto) 10.2 H Lymph # [place] # 0.9 H Seg Neutrophils % POC ABG pH POC ABG pCO2 POC ABG pO2 VBG pH Sodium 136 L Potassium 5.6 H Chloride 96.9 L Carbon Dioxide BUN Creatinine 1.3 H Glucose 113 H POC Glucose Hemoglobin A1c Lactic Acid 2.10 H* Calcium Troponin T Total Protein Albumin Salicylates Acetaminophen 04/26/18 04/26/18 04/26/18 11:19 11:19 11:30 RDW Lymph % (Auto) [place] % (Auto) Lymph # [place] # Seg Neutrophils % POC ABG pH POC ABG pCO2 POC ABG pO2 VBG pH 7.292 L Sodium Potassium Chloride Carbon Dioxide BUN Creatinine Glucose POC Glucose Hemoglobin A1c Lactic Acid Calcium Troponin T 0.175 H* Total Protein Albumin Salicylates < 0.3 L Acetaminophen 04/26/18 04/26/18 04/26/18 11:30 13:14 15:32 RDW Lymph % (Auto) [place] % (Auto) Lymph # [place] # Seg Neutrophils % POC ABG pH 7.277 L 7.316 L POC ABG pCO2 70.5 H 68.5 H POC ABG pO2 27 L 63 L VBG pH Sodium Potassium Chloride Carbon Dioxide BUN Creatinine Glucose POC Glucose Hemoglobin A1c Lactic Acid Calcium Troponin T Total Protein Albumin Salicylates Acetaminophen < 5.0 L 04/26/18 04/26/18 04/27/18 17:56 21:56 05:19 RDW Lymph % (Auto) [place] % (Auto) Lymph # [place] # Seg Neutrophils % POC ABG pH POC ABG pCO2 POC ABG pO2 VBG pH Sodium Potassium Chloride Carbon Dioxide BUN Creatinine Glucose POC Glucose 119 H 164 H 184 H Hemoglobin A1c Lactic Acid Calcium Troponin T Total Protein Albumin Salicylates Acetaminophen 04/27/18 04/27/18 04/27/18 05:23 05:23 05:23 RDW 18.4 H Lymph % (Auto) [place] % (Auto) Lymph # 1.1 L [place] # Seg Neutrophils % 75.9 H POC ABG pH POC ABG pCO2 POC ABG pO2 VBG pH Sodium 136 L Potassium Chloride 94.8 L Carbon Dioxide BUN 21 H Creatinine Glucose 183 H POC Glucose Hemoglobin A1c 7.9 H Lactic Acid Calcium 8.2 L Troponin T Total Protein 6.1 L Albumin 3.8 L Salicylates Acetaminophen 04/27/18 04/27/18 04/27/18 11:45 15:42 21:51 RDW Lymph % (Auto) [place] % (Auto) Lymph # [place] # Seg Neutrophils % POC ABG pH POC ABG pCO2 POC ABG pO2 VBG pH Sodium Potassium Chloride Carbon Dioxide BUN Creatinine Glucose POC Glucose 184 H 108 H 230 H Hemoglobin A1c Lactic Acid Calcium Troponin T Total Protein Albumin Salicylates Acetaminophen 04/28/18 04/28/18 04/28/18 04:57 04:57 07:14 RDW 18.6 H Lymph % (Auto) 11.7 L [place] % (Auto) Lymph # 0.9 L [place] # Seg Neutrophils % 81.6 H POC ABG pH POC ABG pCO2 POC ABG pO2 VBG pH Sodium Potassium Chloride 97.0 L Carbon Dioxide 31 H BUN 27 H Creatinine Glucose 206 H POC Glucose 187 H Hemoglobin A1c Lactic Acid Calcium Troponin T Total Protein Albumin Salicylates Acetaminophen 04/28/18 04/28/18 04/28/18 11:10 17:06 20:53 RDW Lymph % (Auto) [place] % (Auto) Lymph # [place] # Seg Neutrophils % POC ABG pH POC ABG pCO2 POC ABG pO2 VBG pH Sodium Potassium Chloride Carbon Dioxide BUN Creatinine Glucose POC Glucose 240 H 189 H 236 H Hemoglobin A1c Lactic Acid Calcium Troponin T Total Protein Albumin Salicylates Acetaminophen 04/29/18 04/29/18 04/29/18 04:57 04:57 05:01 RDW 18.8 H Lymph % (Auto) [place] % (Auto) Lymph # [place] # Seg Neutrophils % POC ABG pH POC ABG pCO2 POC ABG pO2 VBG pH Sodium Potassium Chloride 96.1 L Carbon Dioxide 33 H BUN 29 H Creatinine Glucose 252 H POC Glucose 237 H Hemoglobin A1c Lactic Acid Calcium Troponin T Total Protein Albumin Salicylates Acetaminophen 04/29/18 04/29/18 04/29/18 12:21 16:42 20:34 RDW Lymph % (Auto) [place] % (Auto) Lymph # [place] # Seg Neutrophils % POC ABG pH POC ABG pCO2 POC ABG pO2 VBG pH Sodium Potassium Chloride Carbon Dioxide BUN Creatinine Glucose POC Glucose 210 H 258 H 226 H Hemoglobin A1c Lactic Acid Calcium Troponin T Total Protein Albumin Salicylates Acetaminophen 04/30/18 04/30/18 04/30/18 05:04 05:04 05:47 RDW 18.1 H Lymph % (Auto) 11.9 L [place] % (Auto) Lymph # 1.0 L [place] # Seg Neutrophils % 82.7 H POC ABG pH POC ABG pCO2 POC ABG pO2 VBG pH Sodium Potassium Chloride 95.6 L Carbon Dioxide 35 H BUN 32 H Creatinine Glucose 225 H POC Glucose 193 H Hemoglobin A1c Lactic Acid Calcium Troponin T Total Protein Albumin Salicylates Acetaminophen 04/30/18 04/30/18 04/30/18 11:36 16:28 20:42 RDW Lymph % (Auto) [place] % (Auto) Lymph # [place] # Seg Neutrophils % POC ABG pH POC ABG pCO2 POC ABG pO2 VBG pH Sodium Potassium Chloride Carbon Dioxide BUN Creatinine Glucose POC Glucose 282 H 259 H 266 H Hemoglobin A1c Lactic Acid Calcium Troponin T Total Protein Albumin Salicylates Acetaminophen 05/01/18 05/01/18 05/01/18 05:52 12:04 16:26 RDW Lymph % (Auto) [place] % (Auto) Lymph # [place] # Seg Neutrophils % POC ABG pH POC ABG pCO2 POC ABG pO2 VBG pH Sodium Potassium Chloride Carbon Dioxide BUN Creatinine Glucose POC Glucose 252 H 292 H 217 H Hemoglobin A1c Lactic Acid Calcium Troponin T Total Protein Albumin Salicylates Acetaminophen 05/01/18 05/02/18 05/02/18 21:07 06:13 12:37 RDW Lymph % (Auto) [place] % (Auto) Lymph # [place] # Seg Neutrophils % POC ABG pH POC ABG pCO2 POC ABG pO2 VBG pH Sodium Potassium Chloride Carbon Dioxide BUN Creatinine Glucose POC Glucose 237 H 263 H 331 H Hemoglobin A1c Lactic Acid Calcium Troponin T Total Protein Albumin Salicylates Acetaminophen 05/02/18 05/02/18 05/03/18 17:38 21:33 06:21 RDW Lymph % (Auto) [place] % (Auto) Lymph # [place] # Seg Neutrophils % POC ABG pH POC ABG pCO2 POC ABG pO2 VBG pH Sodium Potassium Chloride Carbon Dioxide BUN Creatinine Glucose POC Glucose 224 H 241 H 259 H Hemoglobin A1c Lactic Acid Calcium Troponin T Total Protein Albumin Salicylates Acetaminophen 05/03/18 05/03/18 05/04/18 16:03 20:59 04:56 RDW 18.2 H Lymph % (Auto) [place] % (Auto) 7.8 H Lymph # [place] # Seg Neutrophils % 75.8 H POC ABG pH POC ABG pCO2 POC ABG pO2 VBG pH Sodium Potassium Chloride Carbon Dioxide BUN Creatinine Glucose POC Glucose 287 H 304 H Hemoglobin A1c Lactic Acid Calcium Troponin T Total Protein Albumin Salicylates Acetaminophen 05/04/18 05/04/18 05/04/18 04:56 05:31 10:55 RDW Lymph % (Auto) [place] % (Auto) Lymph # [place] # Seg Neutrophils % POC ABG pH POC ABG pCO2 POC ABG pO2 VBG pH Sodium 136 L Potassium 5.2 H Chloride 93.4 L Carbon Dioxide BUN 31 H Creatinine Glucose 264 H POC Glucose 221 H 298 H Hemoglobin A1c Lactic Acid Calcium Troponin T Total Protein Albumin Salicylates Acetaminophen 05/04/18 05/04/18 05/04/18 15:41 20:14 21:20 RDW Lymph % (Auto) [place] % (Auto) Lymph # [place] # Seg Neutrophils % POC ABG pH POC ABG pCO2 POC ABG pO2 VBG pH Sodium Potassium Chloride 93.1 L Carbon Dioxide 38 H D BUN 31 H Creatinine Glucose 228 H POC Glucose 261 H 210 H Hemoglobin A1c Lactic Acid Calcium Troponin T Total Protein Albumin Salicylates Acetaminophen 05/05/18 07:48 RDW Lymph % (Auto) [place] % (Auto) Lymph # [place] # Seg Neutrophils % POC ABG pH POC ABG pCO2 POC ABG pO2 VBG pH Sodium Potassium Chloride Carbon Dioxide BUN Creatinine Glucose POC Glucose 254 H Hemoglobin A1c Lactic Acid Calcium Troponin T Total Protein Albumin Salicylates Acetaminophen Allied health notes reviewed: nursing
[2018-05-05 13:44] VITALS: BP 120/74
== END 2018-05-05 15:15 | DRG 871 ==
LOC: ED 11:04 → IMCU 12:21 → 4A 22:34 → 3A 05-04 22:01
PROVIDERS: ADMIT Internal Medicine; ATTEND Internal Medicine
PROC: 4A033R1 Measurement of Arterial Saturation, Peripheral, Percutaneous Approach (ICD-10-PCS; principal; 2018-04-26)
PROC: 5A09457 Assistance with Respiratory Ventilation, 24-96 Consecutive Hours, Continuous Positive Airway Pressure (ICD-10-PCS; 2018-04-26)
PROC: 5A09457 Assistance with Respiratory Ventilation, 24-96 Consecutive Hours, Continuous Positive Airway Pressure (ICD-10-PCS; 2018-05-01)
PROC: 5A09357 Assistance with Respiratory Ventilation, Less than 24 Consecutive Hours, Continuous Positive Airway Pressure (ICD-10-PCS; 2018-05-04)
DX: A41.51 Sepsis due to Escherichia coli [E. coli] (principal); J18.9 Pneumonia, unspecified organism; J96.21 Acute and chronic respiratory failure with hypoxia; J96.22 Acute and chronic respiratory failure with hypercapnia; I50.43 Acute on chronic combined systolic (congestive) and diastolic (congestive) heart failure; N17.9 Acute kidney failure, unspecified; Z68.42 Body mass index [BMI] 45.0-49.9, adult; J44.1 Chronic obstructive pulmonary disease with (acute) exacerbation; I42.0 Dilated cardiomyopathy; J98.11 Atelectasis; N39.0 Urinary tract infection, site not specified; Z66 Do not resuscitate; E78.5 Hyperlipidemia, unspecified; F17.200 Nicotine dependence, unspecified, uncomplicated; I11.0 Hypertensive heart disease with heart failure; E87.5 Hyperkalemia; E66.01 Morbid (severe) obesity due to excess calories; F25.9 Schizoaffective disorder, unspecified; G47.33 Obstructive sleep apnea (adult) (pediatric); F31.9 Bipolar disorder, unspecified; Z71.6 Tobacco abuse counseling; Z90.49 Acquired absence of other specified parts of digestive tract; Z88.0 Allergy status to penicillin; Z88.2 Allergy status to sulfonamides; Z79.82 Long term (current) use of aspirin; Z79.899 Other long term (current) drug therapy; Z79.4 Long term (current) use of insulin; Z90.710 Acquired absence of both cervix and uterus; Z82.49 Family history of ischemic heart disease and other diseases of the circulatory system
CPT/HCPCS: 36415; 36600; 71045; 80048; 80053; 80061; 80320; 81001; 82140; 82550; 82803; 82805; 82962; 83036; 84484; 85025; 85027; 85610; 85730; 86140; 87040; 87076; 87086; 87186; 87205; 87400; 87449; 93005; 93010; 94640; 94660; 94760; 96365; 96375; G0378; A9270-GY; G0480; J1170; J1815; J1940; J1956; J2920; J2930

== ENCOUNTER 2018-05-19 02:59 | Inpatient (IN) | payer MEDICARE ==
[2018-05-19] MEDS ORDERED: MAGNESIUM SULFATE 2GM/50ML 2 GM/50 ML BAG IV ONE ×2 (03:12→03:19)
[2018-05-19] MEDS ORDERED: PROVENTIL IH ONE (03:27)
[2018-05-19] MEDS ORDERED: ATROVENT IH ONE (03:27)
--- NOTE | 2018-05-19 03:43 | Emergency Department Report ---
ED Shortness of Breath HPI - General Chief Complaint: Dyspnea/Respdistress Stated Complaint: ROBERTO Time Seen by Provider: 05/19/18 03:18 Source: EMS, old records reviewed Mode of arrival: Stretcher Limitations: Altered Mental Status - History of Present Illness Initial Comments: 47 yo female with a past medical history COPD with O2 dependence and previous tracheostomy, hypertension, CHF with EF of 25%, type 2 diabetes, bipolar disorder, sleep apnea, and hyperlipidemia since the hospital with alteration in mental status and shortness of breath. Patient presents from [facility]. He knows patient was hypoxic in the 80s despite being on 4 L nasal cannula. She did receive Ativan tonight as well. Patient answers yes to everything and does not follow commands and is unable to have a conversation therefore, no further history of present illness is available at this time. Previous medical record reviewed. Patient was just discharged from the hospital on May 05. She was admitted for sepsis secondary to pneumonia influenza versus CAP versus HAP and CHF exacerbation. Patient also has a history of urine colonization with ESBL Escherichia coli and pneumonia secondary to H influenza in the past. - Related Data Home Medications Medication Instructions Recorded Confirmed Last Taken Docusate Sodium [Colace CAP] 100 mg PO BID 08/22/17 04/26/18 Unknown Fluticasone [Flonase] 1 spray NS BID 08/22/17 04/26/18 Unknown Loratadine [Claritin] 10 mg PO DAILY 08/22/17 04/26/18 Unknown AtorvaSTATin [Lipitor] 40 mg PO QHS 02/02/18 04/26/18 Unknown Budesonide [Pulmicort] 0.5 mg IH BID 02/02/18 04/26/18 Unknown Famotidine [Pepcid] 20 mg PO DAILY 02/02/18 04/26/18 Unknown Montelukast [Singulair] 10 mg PO QHS 02/02/18 04/26/18 Unknown Sennosides [Senna] 17.2 mg PO QHS 02/02/18 04/26/18 Unknown Sorbitol 70% 30 ml PO BID 02/02/18 04/26/18 Unknown Spironolactone [Aldactone] 12.5 mg PO DAILY 02/02/18 04/26/18 Unknown Hydralazine HCl 37.5 mg PO Q8H 03/28/18 04/26/18 Unknown Isosorbide Dinitrate [Isordil 20 mg PO Q8H 03/28/18 04/26/18 Unknown Titradose] Losartan [Cozaar] 100 mg PO QDAY 03/28/18 04/26/18 Unknown Metformin HCl [Glucophage] 1,000 mg PO BID 03/28/18 04/26/18 Unknown ALBUTEROL NEB's [Proventil 0.083% 2.5 mg IH Q4HR PRN 04/26/18 04/26/18 Unknown NEBS] Acetaminophen [Acetaminophen TAB] 650 mg PO Q6HR PRN 04/26/18 04/26/18 Unknown Aspirin EC [Aspirin Enteric Coated 325 mg PO QDAY 04/26/18 04/26/18 Unknown TAB] Insulin Regular, Human [HumuLIN R] See Protocol SUB-Q AC 04/26/18 04/26/18 Unknown Ipratropium/Albuterol Sulfate 1 ampul IH TID 04/26/18 04/26/18 Unknown [DUONEB *Not for PRN Use*] Polyethylene Glycol 3350 [Miralax 17 gm PO QDAY PRN 04/26/18 04/26/18 Unknown 3350] Potassium Chloride 20 meq PO QDAY 04/26/18 04/26/18 Unknown oxyCODONE /ACETAMINOPHEN [Percocet 1 tab PO DAILY PRN 04/26/18 04/26/18 Unknown 5/325 mg] Previous Rx's Medication Instructions Recorded Last Taken Type Carvedilol [Coreg] 3.125 mg PO BID #60 tablet 09/02/17 Unknown Rx QUEtiapine [SEROquel] 200 mg PO QHS tablet 01/22/18 Unknown Rx traZODone [Desyrel] 50 mg PO QHS tablet 01/22/18 Unknown Rx Furosemide [Lasix TAB] 40 mg PO DAILY@0600 #30 tablet 02/05/18 Unknown Rx LORazepam [Ativan] 1 mg PO Q6H #7 tablet 02/05/18 Unknown Rx Methadone [Dolophine] 5 mg PO BID #7 tablet 02/05/18 Unknown Rx Prednisone [predniSONE 5 mg (6-Day 5 mg PO .TAPER #1 tab.ds.pk 05/05/18 Unknown Rx Pack, 21 Tabs)] Allergies Allergy/AdvReac Type Severity Reaction Status Date / Time Penicillins Allergy Unknown Verified 03/28/18 09:27 Sulfa (Sulfonamide Allergy Unknown Verified 03/28/18 09:27 Antibiotics) sulfabenzamide Allergy Unknown Verified 03/28/18 09:27 ED Review of Systems ROS: Stated complaint: ROBERTO Other details as noted in HPI Comment: Unobtainable due to pts medical conditions ED Past Medical Hx - Past Medical History Hx Hypertension: Yes Hx Heart Attack/AMI: No Hx Congestive Heart Failure: Yes Hx Diabetes: Yes Hx Deep Vein Thrombosis: No Hx Psychiatric Treatment: Yes (hx of schizophrenia, major depressive disorder) Hx Asthma: Yes Hx COPD: Yes Additional medical history: Dysphasia. obstructive sleep apnea - Surgical History Hx Pacemaker: No Hx Internal Defibrillator: No Additional Surgical History: Partial hysterectomy. Tracheostomy - Social History Smoking Status: Unknown if ever smoked - Medications Home Medications: Home Medications Medication Instructions Recorded Confirmed Last Taken Type Docusate Sodium [Colace CAP] 100 mg PO BID 08/22/17 04/26/18 Unknown History Fluticasone [Flonase] 1 spray NS BID 08/22/17 04/26/18 Unknown History Loratadine [Claritin] 10 mg PO DAILY 08/22/17 04/26/18 Unknown History Carvedilol [Coreg] 3.125 mg PO BID #60 tablet 09/02/17 04/26/18 Unknown Rx QUEtiapine [SEROquel] 200 mg PO QHS tablet 01/22/18 04/26/18 Unknown Rx traZODone [Desyrel] 50 mg PO QHS tablet 01/22/18 04/26/18 Unknown Rx AtorvaSTATin [Lipitor] 40 mg PO QHS 02/02/18 04/26/18 Unknown History Budesonide [Pulmicort] 0.5 mg IH BID 02/02/18 04/26/18 Unknown History Famotidine [Pepcid] 20 mg PO DAILY 02/02/18 04/26/18 Unknown History Montelukast [Singulair] 10 mg PO QHS 02/02/18 04/26/18 Unknown History Sennosides [Senna] 17.2 mg PO QHS 02/02/18 04/26/18 Unknown History Sorbitol 70% 30 ml PO BID 02/02/18 04/26/18 Unknown History Spironolactone [Aldactone] 12.5 mg PO DAILY 02/02/18 04/26/18 Unknown History Furosemide [Lasix TAB] 40 mg PO DAILY@0600 #30 tablet 02/05/18 04/26/18 Unknown Rx LORazepam [Ativan] 1 mg PO Q6H #7 tablet 02/05/18 04/26/18 Unknown Rx Methadone [Dolophine] 5 mg PO BID #7 tablet 02/05/18 04/26/18 Unknown Rx Hydralazine HCl 37.5 mg PO Q8H 03/28/18 04/26/18 Unknown History Isosorbide Dinitrate [Isordil 20 mg PO Q8H 03/28/18 04/26/18 Unknown History Titradose] Losartan [Cozaar] 100 mg PO QDAY 03/28/18 04/26/18 Unknown History Metformin HCl [Glucophage] 1,000 mg PO BID 03/28/18 04/26/18 Unknown History ALBUTEROL NEB's [Proventil 0.083% 2.5 mg IH Q4HR PRN 04/26/18 04/26/18 Unknown History NEBS] Acetaminophen [Acetaminophen TAB] 650 mg PO Q6HR PRN 04/26/18 04/26/18 Unknown History Aspirin EC [Aspirin Enteric Coated 325 mg PO QDAY 04/26/18 04/26/18 Unknown History TAB] Insulin Regular, Human [HumuLIN R] See Protocol SUB-Q AC 04/26/18 04/26/18 Unknown History Ipratropium/Albuterol Sulfate 1 ampul IH TID 04/26/18 04/26/18 Unknown History [DUONEB *Not for PRN Use*] Polyethylene Glycol 3350 [Miralax 17 gm PO QDAY PRN 04/26/18 04/26/18 Unknown History 3350] Potassium Chloride 20 meq PO QDAY 04/26/18 04/26/18 Unknown History oxyCODONE /ACETAMINOPHEN [Percocet 1 tab PO DAILY PRN 04/26/18 04/26/18 Unknown History 5/325 mg] Prednisone [predniSONE 5 mg (6-Day 5 mg PO .TAPER #1 tab.ds.pk 05/05/18 Unknown Rx Pack, 21 Tabs)] ED Physical Exam - General Limitations: Altered Mental Status - Other Other exam information: General: Limited by mental status Head exam: Atraumatic, normocephalic Eyes exam: Normal appearance, pupils equal reactive to light, extraocular movements intact ENT: Moist mucous membrane Neck exam: Tracheostomy scar noted Respiratory exam: Tachypnea, bilateral wheezing Cardiovascular: Normal rate and rhythm Abdomen: Soft, nondistended, significant midline vertical scar in the abdomen. No PEG tube Extremity: No deformity Neurologic: Lethargic but arousable to tactile stimulation, answers yes to all questions. Moves all extremities equally, sensation grossly intact ED Course Vital Signs 05/19/18 05/19/18 05/19/18 03:01 03:10 03:15 Temperature 97.6 F Pulse Rate 106 H 105 H 104 H Pulse Rate [ Anterior Bilateral Upper Lobe] Respiratory 28 H 25 H 22 Rate Respiratory Rate [Anterior Bilateral Upper Lobe] Blood Pressure 118/79 [Left] O2 Sat by Pulse 87 88 94 Oximetry 05/19/18 05/19/18 05/19/18 03:26 03:34 05:02 Temperature Pulse Rate Pulse Rate [ 105 H 103 H Anterior Bilateral Upper Lobe] Respiratory 22 Rate Respiratory 26 H 23 Rate [Anterior Bilateral Upper Lobe] Blood Pressure [Left] O2 Sat by Pulse 96 Oximetry ED Medical Decision Making - Lab Data Result diagrams: 05/19/18 03:30 05/19/18 03:30 Lab Results 05/19/18 05/19/18 05/19/18 Range/Units 03:15 03:30 03:30 WBC 8.2 (4.5-11.0) K/mm3 RBC 4.01 (3.65-5.03) M/mm3 Hgb 11.7 (10.1-14.3) gm/dl Hct 36.9 (30.3-42.9) % MCV 92 (79-97) fl MCH 29 (28-32) pg MCHC 32 (30-34) % RDW 18.2 H (13.2-15.2) % Plt Count 126 L (140-440) K/mm3 Lymph % (Auto) 23.8 (13.4-35.0) % [place] % (Auto) 14.0 H (0.0-7.3) % Eos % (Auto) 0.7 (0.0-4.3) % Baso % (Auto) 0.7 (0.0-1.8) % Lymph # 2.0 (1.2-5.4) K/mm3 [place] # 1.1 H (0.0-0.8) K/mm3 Eos # 0.1 (0.0-0.4) K/mm3 Baso # 0.1 (0.0-0.1) K/mm3 Seg Neutrophils % 60.8 (40.0-70.0) % Seg Neutrophils # 5.0 (1.8-7.7) K/mm3 PT 14.1 (12.2-14.9) Sec. INR 1.05 (0.87-1.13) APTT 26.8 (24.2-36.6) Sec. POC ABG pH 7.220 L (7.35-7.45) POC ABG pCO2 94.1 H (35-45) POC ABG pO2 66 L (80-105) POC ABG HCO3 38.6 POC ABG Total CO2 41 POC ABG O2 Sat 87 POC ABG Base Excess 11 FiO2 45 % Sodium (137-145) mmol/L Potassium (3.6-5.0) mmol/L Chloride (98-107) mmol/L Carbon Dioxide (22-30) mmol/L Anion Gap mmol/L BUN (7-17) mg/dL Creatinine (0.7-1.2) mg/dL Estimated GFR ml/min BUN/Creatinine Ratio % Glucose (65-100) mg/dL Calcium (8.4-10.2) mg/dL Total Creatine Kinase (30-135) units/L CK-MB (CK-2) (0.0-4.0) ng/mL CK-MB (CK-2) Rel Index (0-4) Troponin T (0.00-0.029) ng/mL NT-Pro-B Natriuret Pep (0-450) pg/mL Cholesterol (50-199) mg/dL LDL Cholesterol Direct (50-130) mg/dL HDL Cholesterol (40-59) mg/dL Cholesterol/HDL Ratio % 05/19/18 05/19/18 05/19/18 Range/Units 03:30 03:41 05:00 WBC (4.5-11.0) K/mm3 RBC (3.65-5.03) M/mm3 Hgb (10.1-14.3) gm/dl Hct (30.3-42.9) % MCV (79-97) fl MCH (28-32) pg MCHC (30-34) % RDW (13.2-15.2) % Plt Count (140-440) K/mm3 Lymph % (Auto) (13.4-35.0) % [place] % (Auto) (0.0-7.3) % Eos % (Auto) (0.0-4.3) % Baso % (Auto) (0.0-1.8) % Lymph # (1.2-5.4) K/mm3 [place] # (0.0-0.8) K/mm3 Eos # (0.0-0.4) K/mm3 Baso # (0.0-0.1) K/mm3 Seg Neutrophils % (40.0-70.0) % Seg Neutrophils # (1.8-7.7) K/mm3 PT (12.2-14.9) Sec. INR (0.87-1.13) APTT (24.2-36.6) Sec. POC ABG pH 7.244 L (7.35-7.45) POC ABG pCO2 85.3 H (35-45) POC ABG pO2 83 (80-105) POC ABG HCO3 36.9 POC ABG Total CO2 39 POC ABG O2 Sat 93 POC ABG Base Excess 10 FiO2 55 % Sodium 143 (137-145) mmol/L Potassium 5.0 (3.6-5.0) mmol/L Chloride 99.3 (98-107) mmol/L Carbon Dioxide 35 H (22-30) mmol/L Anion Gap 14 mmol/L BUN 14 (7-17) mg/dL Creatinine 0.8 (0.7-1.2) mg/dL Estimated GFR > 60 ml/min BUN/Creatinine Ratio 18 % Glucose 114 H (65-100) mg/dL Calcium 8.8 (8.4-10.2) mg/dL Total Creatine Kinase 95 (30-135) units/L CK-MB (CK-2) 5.8 H (0.0-4.0) ng/mL CK-MB (CK-2) Rel Index 6.1 H (0-4) Troponin T 0.233 H* (0.00-0.029) ng/mL NT-Pro-B Natriuret Pep 4192 H (0-450) pg/mL Cholesterol 125 (50-199) mg/dL LDL Cholesterol Direct 58 (50-130) mg/dL HDL Cholesterol 53 (40-59) mg/dL Cholesterol/HDL Ratio 2.35 % - EKG Data -: EKG Interpreted by Me EKG shows normal: sinus rhythm, axis (qrs -68), QRS complexes (qrs 88), ST-T waves (no stemi) Rate: normal (97) - Radiology Data Radiology results: report reviewed HISTORY: sob COMPARISON: 03/28/2010 FINDINGS: Heart: Normal. Mediastinum/Vessels: Normal. Lungs/Pleural space: Bilateral hilar infiltrates have slightly increased since prior study. Mild atelectasis left lower lung. No effusion or pneumothorax.. Bony thorax: No acute osseous abnormality. Life support devices: None. IMPRESSION: Bilateral hilar infiltrate has slightly increased prior study. Mild atelectasis left lower lung. - Medical Decision Making Patient was on BiPAP for about an hour and a half and there is about a 10 point drop his CO2 (from the 94 to 85) and a gradual increase in arterial pH. In the past patient has had a normal pH with a CO2 in the 50's to low 60's therefore she is a chronic CO2 retainer. Patient is also more alert and responsive but able to say her name and follow commands. Patient does not require intubation at this time and BiPAP will be continued. She was treated with additional nebulized treatment via BiPAP. cX-ray shows bilateral perihilar infiltrates slightly increased compared to previous. Patient has had multiple x-rays here and multiple admissions for respiratory failure and pneumonia over the last several months. Patient does not have a fever or leukocytosis but based on x- ray she will be given initial dose of Levaquin and vancomycin since infiltrates are worse compared to previous. Hospitalist informed for admission. troponin elevated but chronically elevated without acute EKG abnormalities. - Differential Diagnosis copd, pneumonia, CHF Critical Care Time: No Critical care attestation.: If time is entered above; I have spent that time in minutes in the direct care of this critically ill patient, excluding procedure time. ED Disposition Clinical Impression: CHF (congestive heart failure), COPD exacerbation, CO2 retention, Pulmonary infiltrate, Sleep apnea syndrome, T2DM (type 2 diabetes mellitus), Morbid obesity with BMI of 45.0-49.9, adult, HTN (hypertension), Elevated troponin Disposition: OP ADMIT IP TO THIS HOSP Is pt being admited?: Yes Condition: Stable Time of Disposition: 05:22
[2018-05-19 03:47] LABS: Basophils # (Auto) 0.1 K/mm3 (0.0-0.1); Basophils % (Auto) 0.7 % (0.0-1.8); Eosinophils # (Auto) 0.1 K/mm3 (0.0-0.4); Eosinophils % (Auto) 0.7 % (0.0-4.3); Hematocrit 36.9 % (30.3-42.9); Hemoglobin 11.7 gm/dl (10.1-14.3); Lymphocytes % (Auto) 23.8 % (13.4-35.0); Mean Corpuscular HGB Conc 32 % (30-34); Mean Corpuscular Volume 92 fl (79-97); Monocytes # (Auto) 1.1 K/mm3 (0.0-0.8); Platelet Count 126 K/mm3 (140-440); Red Blood Count 4.01 M/mm3 (3.65-5.03); Red Cell Distribution Width 18.2 % (13.2-15.2)
--- NOTE | 2018-05-19 03:47 | XRay Report ---
FINAL REPORT PROCEDURE: XR CHEST 1V AP TECHNIQUE: Chest radiograph anteroposterior view. CPT 87077 HISTORY: sob COMPARISON: 03/28/2010 FINDINGS: Heart: Normal. Mediastinum/Vessels: Normal. Lungs/Pleural space: Bilateral hilar infiltrates have slightly increased since prior study. Mild atel ectasis left lower lung. No effusion or pneumothorax.. Bony thorax: No acute osseous abnormality. Life support devices: None. IMPRESSION: Bilateral hilar infiltrate has slightly increased prior study. Mild atelectasis left lower lung.
[2018-05-19 03:57] LABS: INR 1.05 (0.87-1.13)
[2018-05-19 03:58] LABS: Partial Thromboplastin Time 26.8 Sec. (24.2-36.6)
[2018-05-19 04:10] LABS: Creatine Kinase MB 5.8 ng/mL (0.0-4.0)
[2018-05-19 04:12] LABS: BUN/Creatinine Ratio 18; Blood Urea Nitrogen 14 mg/dL (7-17); Calcium 8.8 mg/dL (8.4-10.2); Hemolysis Index 4
[2018-05-19] MEDS ORDERED: LEVAQUIN 750MG/150ML 750 MG/150 ML BAG IV ONE (04:13)
[2018-05-19 04:47] LABS: LDL Cholesterol,Direct 58 mg/dL (50-130)
[2018-05-19] MEDS ORDERED: VANCOMYCIN 2,000 MG in NACL 0.9% 500 ML 500 ML IV ONE (05:00)
[2018-05-19 05:12] LABS: Chol/HDL Ratio 2.35 %; HDL Cholesterol 53 mg/dL (40-59)
[2018-05-19] MEDS ORDERED: SODIUM CHLORIDE FLUSH SYRINGE 10 ML IV PRN (06:14)
[2018-05-19] MEDS ORDERED: D50W (25GM) Syringe IV PRN (06:14)
[2018-05-19] MEDS ORDERED: TYLENOL PO PRN (06:14)
--- NOTE | 2018-05-19 06:20 | History and Physical Report ---
History of Present Illness Date of examination: 05/19/18 History of present illness: 47-year-old woman with a history of COPD, CHF, diabetes, hyperlipidemia, schizophrenia, depression, sleep apnea, bipolar, hypertension, morbid obesity was sent to the emergency room from senior care for evaluation of shortness of breath, confusion. The patient was hypercarbic and was started on BiPAP, her CO2 is improved and she is more alert. She states she does not know why she is here. Further history is difficult to obtain, review of systems difficult to obtain PAST MEDICAL HISTORY: COPD, CHF, diabetes, hyperlipidemia, schizophrenia, depression, sleep apnea, bipolar, hypertension, morbid obesity PAST SURGICAL HISTORY: Hysterectomy, colectomy, previous trach SOCIAL HISTORY: Denies alcohol, drugs,+ tobacco FAMILY HISTORY: Hypertension Medications and Allergies Allergies Allergy/AdvReac Type Severity Reaction Status Date / Time Penicillins Allergy Unknown Verified 03/28/18 09:27 Sulfa (Sulfonamide Allergy Unknown Verified 03/28/18 09:27 Antibiotics) sulfabenzamide Allergy Unknown Verified 03/28/18 09:27 Home Medications Medication Instructions Recorded Confirmed Last Taken Type Budesonide [Pulmicort] 0.5 mg IH BID 02/02/18 05/19/18 Unknown History Metformin HCl [Glucophage] 1,000 mg PO BID 03/28/18 05/19/18 Unknown History Ipratropium/Albuterol Sulfate 1 ampul IH TID 04/26/18 05/19/18 Unknown History [DUONEB *Not for PRN Use*] Acetaminophen [Acetaminophen TAB] 650 mg PO Q4H PRN tablet 05/25/18 Unknown Rx Arformoterol Nebu [Brovana Nebu] 15 mcg IH Q12HRT ml 05/25/18 Unknown Rx Aspirin EC [Aspirin Enteric Coated 325 mg PO QDAY tablet 05/25/18 Unknown Rx TAB] AtorvaSTATin [Lipitor] 40 mg PO QHS tablet 05/25/18 Unknown Rx Budesonide [Pulmicort Respules] 0.5 mg IH Q12HRT nebu 05/25/18 Unknown Rx Carvedilol [Coreg] 6.25 mg PO BID tablet 05/25/18 Unknown Rx Docusate Sodium [Colace CAP] 100 mg PO BID capsule 05/25/18 Unknown Rx Famotidine [Pepcid] 20 mg PO DAILY tablet 05/25/18 Unknown Rx Fluticasone [Flonase] 50 mcg NS BID bottle 05/25/18 Unknown Rx Ipratropium/Albuterol Sulfate 1 ampul IH Q6HRT ampul.neb 05/25/18 Unknown Rx [DUONEB *Not for PRN Use*] Isosorbide Dinitrate [Isordil 20 mg PO Q8H tablet 05/25/18 Unknown Rx Titradose] Loratadine [Claritin] 10 mg PO DAILY tablet 05/25/18 Unknown Rx Losartan [Cozaar] 50 mg PO QDAY tablet 05/25/18 Unknown Rx Methadone [Dolophine] 5 mg PO BID tablet 05/25/18 Unknown Rx Montelukast [Singulair] 10 mg PO QHS tablet 05/25/18 Unknown Rx Polyethylene Glycol 3350 [Miralax 17 gm PO QDAY PRN powd.pack 05/25/18 Unknown Rx 3350] QUEtiapine [SEROquel] 200 mg PO QHS tablet 05/25/18 Unknown Rx Sennosides Tab [Senokot] 17.2 mg PO QHS tablet 05/25/18 Unknown Rx Simple Syrup 30 ml FEEDTUBE PRN PRN oral.liqd 05/25/18 Unknown Rx Sodium Bicarbonate 325 mg FEEDTUBE PRN PRN tablet 05/25/18 Unknown Rx Spironolactone [Aldactone] 25 mg PO QDAY tablet 05/25/18 Unknown Rx hydrALAZINE [Apresoline TAB] 37.5 mg PO Q8H tablet 05/25/18 Unknown Rx methylPREDNISolone Sod Suc 60 mg IV Q8H vial 05/25/18 Unknown Rx [Solu-MEDROL] traZODone [Desyrel] 50 mg PO QHS tablet 05/25/18 Unknown Rx Active Meds: Active Medications Acetaminophen (Tylenol) 650 mg PO Q4H PRN PRN Reason: Pain MILD(1-3)/Fever >100.5/ARMSTRONG Albuterol/Ipratropium (Duoneb *Not For Prn Use*) 1 ampul IH Q6HRT JOE Dextrose (D50w (25gm) Syringe) 50 ml IV PRN PRN PRN Reason: Hypoglycemia Vancomycin HCl 2,000 mg/ (Sodium Chloride) 540 mls @ 333 mls/hr IV ONCE ONE; Protocol Stop: 05/19/18 06:37 Last Admin: 05/19/18 06:12 Dose: 333 mls/hr Documented by: Insulin Human Lispro (Humalog) 0 unit SUB-Q Q6HR [facility]; Protocol Methylprednisolone Sodium Succinate (Solu-Medrol) 125 mg IV Q6H JOE Ondansetron HCl (Zofran) 4 mg IV Q8H PRN PRN Reason: Nausea And Vomiting Sodium Chloride (Sodium Chloride Flush Syringe 10 Ml) 10 ml IV BID JOE Sodium Chloride (Sodium Chloride Flush Syringe 10 Ml) 10 ml IV PRN PRN PRN Reason: LINE FLUSH Exam - Physical Exam Narrative exam: General Apperance: The patient lying in bed, breathing comfortable HEENT: Normocephalic, atraumatic. Pupils equally round and reactive to light, EOMI, no sclericterus or JVD or thyromegaly or nodule. , no carotid bruit, mucous membranes moist, no exudate or erythema Heart: S1-S2, regular is rhythm Lungs: Wheezing bilaterally, breathing comfortable Abdomen: Positive bowel sounds, soft, nontender, nondistended, no organomegaly Extremities: No edema cyanosis clubbing Skin: no rash, nodule, warm and dry Neuro: Difficult to assess - Constitutional Vitals: Temp Pulse Resp BP Pulse Ox 97.6 F 103 H 23 118/79 96 05/19/18 03:01 05/19/18 05:02 05/19/18 05:02 05/19/18 03:01 05/19/18 03:26 Results - Labs CBC & Chem 7: 05/25/18 05:52 05/25/18 05:52 Labs: Abnormal lab results 05/19/18 05/19/18 05/19/18 Range/Units 03:15 03:30 03:30 RDW 18.2 H (13.2-15.2) % Plt Count 126 L (140-440) K/mm3 [place] % (Auto) 14.0 H (0.0-7.3) % [place] # 1.1 H (0.0-0.8) K/mm3 POC ABG pH 7.220 L (7.35-7.45) POC ABG pCO2 94.1 H (35-45) POC ABG pO2 66 L (80-105) Carbon Dioxide 35 H (22-30) mmol/L Glucose 114 H (65-100) mg/dL CK-MB (CK-2) 5.8 H (0.0-4.0) ng/mL CK-MB (CK-2) Rel Index 6.1 H (0-4) Troponin T 0.233 H* (0.00-0.029) ng/mL NT-Pro-B Natriuret Pep (0-450) pg/mL 05/19/18 05/19/18 Range/Units 03:41 05:00 RDW (13.2-15.2) % Plt Count (140-440) K/mm3 [place] % (Auto) (0.0-7.3) % [place] # (0.0-0.8) K/mm3 POC ABG pH 7.244 L (7.35-7.45) POC ABG pCO2 85.3 H (35-45) POC ABG pO2 (80-105) Carbon Dioxide (22-30) mmol/L Glucose (65-100) mg/dL CK-MB (CK-2) (0.0-4.0) ng/mL CK-MB (CK-2) Rel Index (0-4) Troponin T (0.00-0.029) ng/mL NT-Pro-B Natriuret Pep 4192 H (0-450) pg/mL - Imaging and Cardiology EKG: image reviewed Chest x-ray: report reviewed Assessment and Plan Assessment Acute on chronic respiratory failure, hypercarbic COPD exacerbation Pneumonia Abnormal cardiac enzymes CHF, stable diabetes hyperlipidemia schizophrenia depression sleep apnea bipolar hypertension morbid obesity Plan Admit to medicine Start high-dose steroids, nebulization treatment, IV Levaquin Continue BiPAP, consult pulmonary, check CT head Check cardiac enzymes, echo, consult cardiology Check fingersticks and initiate insulin sliding scale Continue appropriate outpatient medications 2 prophylaxis
[2018-05-19 07:17] LABS: Creatine Kinase MB 5.8 ng/mL (0.0-4.0)
[2018-05-19] MEDS ORDERED: NORMODYNE IV ONE (07:53)
[2018-05-19] MEDS ORDERED: LASIX IV ONE (07:57)
[2018-05-19] MEDS ORDERED: SOLU-Medrol IV SCH (08:00)
[2018-05-19] MEDS ORDERED: HALDOL IM ONE ×2 (08:05→08:43)
--- NOTE | 2018-05-19 08:07 | Emergency Department Report ---
Kasey Doc - Documentation Documentation: 47-year-old female who is admitted to the hospitalist service. I was called to come into the room to "intubate the patient". I found the patient to be a morbidly obese lady with previous trach. She was hypoxic. She did clearly know what an endotracheal tube was when I asked her. She had adequate mental capacity to refuse an endotracheal tube. She did so and comprehended the consequences. I explained to her that the BiPAP should not have been removed and was likely to help her. I told her if the BiPAP failed than the only other treatment we had was endotracheal intubation. She understood this. She accepted the replacement of her BiPAP mask. A BiPAP mask was replaced and her hypoxia rapidly improved. Examination The patient was in respiratory distress. Her breath sounds were somewhat distant. She is morbidly obese. Cardiovascular regular rate without significant murmur GI the abdomen was soft and nontender to palpation Musculoskeletal the patient does have some pretibial edema. Neurological exam very limited secondary to patient respiratory distress Physical limitations. However do not think the patient has any acute focal deficit Review of data The patient was apparently treated for sepsis. I did review her x-rays. She has bilateral hilar infiltrates. I believe she has cephalization of flow. I believe this is likely due to congestive heart failure. She has proBNP of over 4000. Impression #1 respiratory distress #2 perihilar infiltrates #3 hypoxic and hypercapnic respiratory failure #4 just for failure Plan Patient was replaced on BiPAP. This was immediately beneficial with her returning to saturations above 96. A blood gas will be reordered. The patient was given Lasix 60 mg. I spoke with her hospitalist Dr. Marley. He confirmed that the patient does have a history of CHF and cardiomyopathy. He also confirmed that patient is DO NOT RESUSCITATE status. I am glad I took an appropriate history and did not rushed to intubations. This is clearly not what the patient desires at this time. She did appear to be stable on BiPAP. Lasix is likely to be of benefit. The BiPAP mask will likely improve her hypercapnic respiratory failure as well. Further care will be per the hospitalist who states he will be seeing the patient shortly Critical care time with this patient is 35 minutes.
[2018-05-19] MEDS ORDERED: LASIX ONE ×2 (08:35→08:51)
--- NOTE | 2018-05-19 08:40 | Event Note ---
Date: 05/19/18 Patient admitted this morning. Acute on chronic resp failure with hypoxia and hypercarbia. I encouraged her to keep BIPAP on. I asked about code status and she wants everything done to keep her alive - full code. Will add lasix bid. Will repeat ABG after 1 hr on BIPAP.
[2018-05-19] MEDS ORDERED: SOLU-Medrol ONE (08:51)
[2018-05-19] MEDS ORDERED: HALDOL ONE (09:06)
[2018-05-19] MEDS: DUONEB *Not for PRN Use IH SCH ×3 (10:15→19:16)
[2018-05-19] MEDS ORDERED: DUONEB *Not for PRN Use IH ONE (10:53)
--- NOTE | 2018-05-19 11:49 | Consultation ---
Addendum entered and electronically signed by PILLO NICKERSON MD 05/19/18 12:49: Acute hypercapneic respiratory failure Chronic systolic heart failure Non-specific troponin Non-compliance Continue supportive care with BiPAP, diuresis, afterload reduction Patient refused coronary angio last admission Original Note: History of Present Illness Consult date: 05/19/18 Consult reason: abnormal cardiac enzymes History of present illness: Patient is a 47 year old woman with multiple prior admission. He has a history of COPD and is on chronic oxygen therapy. She is on medical therapy for a nonischemic cardiomyopathy. In 2013, a cardiac cath at [facility] revealed normal coronaries, EF 45%. A follow up echocardiogram 8 months ago documents an ejection fraction 20-25%. Patient presented with acute respiratory failure. Currently on Bipap therapy. Chest x-ray reports cardiomegaly with bilateral hilar infiltrates. Medications and Allergies Allergies Allergy/AdvReac Type Severity Reaction Status Date / Time Penicillins Allergy Unknown Verified 03/28/18 09:27 Sulfa (Sulfonamide Allergy Unknown Verified 03/28/18 09:27 Antibiotics) sulfabenzamide Allergy Unknown Verified 03/28/18 09:27 Home Medications Medication Instructions Recorded Confirmed Last Taken Type Docusate Sodium [Colace CAP] 100 mg PO BID 08/22/17 05/19/18 Unknown History Fluticasone [Flonase] 1 spray NS BID 08/22/17 05/19/18 Unknown History Loratadine [Claritin] 10 mg PO DAILY 08/22/17 05/19/18 Unknown History Carvedilol [Coreg] 3.125 mg PO BID #60 tablet 09/02/17 05/19/18 Unknown Rx QUEtiapine [SEROquel] 200 mg PO QHS tablet 01/22/18 05/19/18 Unknown Rx traZODone [Desyrel] 50 mg PO QHS tablet 01/22/18 05/19/18 Unknown Rx AtorvaSTATin [Lipitor] 40 mg PO QHS 02/02/18 05/19/18 Unknown History Budesonide [Pulmicort] 0.5 mg IH BID 02/02/18 05/19/18 Unknown History Famotidine [Pepcid] 20 mg PO DAILY 02/02/18 05/19/18 Unknown History Montelukast [Singulair] 10 mg PO QHS 02/02/18 05/19/18 Unknown History Sennosides [Senna] 17.2 mg PO QHS 02/02/18 05/19/18 Unknown History Sorbitol 70% 30 ml PO BID 02/02/18 05/19/18 Unknown History Spironolactone [Aldactone] 12.5 mg PO DAILY 02/02/18 05/19/18 Unknown History Furosemide [Lasix TAB] 40 mg PO DAILY@0600 #30 tablet 02/05/18 05/19/18 Unknown Rx LORazepam [Ativan] 1 mg PO Q6H #7 tablet 02/05/18 05/19/18 Unknown Rx Methadone [Dolophine] 5 mg PO BID #7 tablet 02/05/18 05/19/18 Unknown Rx Hydralazine HCl 37.5 mg PO Q8H 03/28/18 05/19/18 Unknown History Isosorbide Dinitrate [Isordil 20 mg PO Q8H 03/28/18 05/19/18 Unknown History Titradose] Losartan [Cozaar] 100 mg PO QDAY 03/28/18 05/19/18 Unknown History Metformin HCl [Glucophage] 1,000 mg PO BID 03/28/18 05/19/18 Unknown History ALBUTEROL NEB's [Proventil 0.083% 2.5 mg IH Q4HR PRN 04/26/18 05/19/18 Unknown History NEBS] Acetaminophen [Acetaminophen TAB] 650 mg PO Q6HR PRN 04/26/18 05/19/18 Unknown History Aspirin EC [Aspirin Enteric Coated 325 mg PO QDAY 04/26/18 05/19/18 Unknown History TAB] Insulin Regular, Human [HumuLIN R] See Protocol SUB-Q AC 04/26/18 05/19/18 Unk nown History Ipratropium/Albuterol Sulfate 1 ampul IH TID 04/26/18 05/19/18 Unknown History [DUONEB *Not for PRN Use*] Polyethylene Glycol 3350 [Miralax 17 gm PO QDAY PRN 04/26/18 05/19/18 Unknown History 3350] Potassium Chloride 20 meq PO QDAY 04/26/18 05/19/18 Unknown History Active Meds: Active Medications Acetaminophen (Tylenol) 650 mg PO Q4H PRN PRN Reason: Pain MILD(1-3)/Fever >100.5/ARMSTRONG Albuterol/Ipratropium (Duoneb *Not For Prn Use*) 1 ampul IH Q6HRT [facility] Dextrose (D50w (25gm) Syringe) 50 ml IV PRN PRN PRN Reason: Hypoglycemia Furosemide (Lasix) 40 mg IV 0600,1800 JOE Levofloxacin/Dextrose (Levaquin 750mg/150ml) 750 mg in 150 mls @ 100 mls/hr IV Q24HR JOE; Protocol Insulin Human Lispro (Humalog) 0 unit SUB-Q Q6HR JOE; Protocol Methylprednisolone Sodium Succinate (Solu-Medrol) 125 mg IV Q6H JOE Last Admin: 05/19/18 08:55 Dose: 125 mg Documented by: Ondansetron HCl (Zofran) 4 mg IV Q8H PRN PRN Reason: Nausea And Vomiting Sodium Chloride (Sodium Chloride Flush Syringe 10 Ml) 10 ml IV BID JOE Sodium Chloride (Sodium Chloride Flush Syringe 10 Ml) 10 ml IV PRN PRN PRN Reason: LINE FLUSH Physical Examination Vital Signs Pulse Resp 103 H 14 05/19/18 03:00 05/19/18 03:00 General appearance: other (on Bipap therapy) Cardiac: Positive: Reg Rate and Rhythm Lungs: Positive: Decreased Breath Sounds Results 05/19/18 03:30 05/19/18 03:30 Cardiac Enzymes 05/19/18 05/19/18 Range/Units 03:30 06:44 CK-MB (CK-2) 5.8 H 5.8 H (0.0-4.0) ng/mL Coagulation 05/19/18 Range/Units 03:30 PT 14.1 (12.2-14.9) Sec. INR 1.05 (0.87-1.13) APTT 26.8 (24.2-36.6) Sec. Lipids 05/19/18 Range/Units 03:30 Triglycerides 81 (2-149) mg/dL Cholesterol 125 (50-199) mg/dL HDL Cholesterol 53 (40-59) mg/dL Cholesterol/HDL Ratio 2.35 % CBC 05/19/18 Range/Units 03:30 WBC 8.2 (4.5-11.0) K/mm3 RBC 4.01 (3.65-5.03) M/mm3 Hgb 11.7 (10.1-14.3) gm/dl Hct 36.9 (30.3-42.9) % Plt Count 126 L (140-440) K/mm3 Lymph # 2.0 (1.2-5.4) K/mm3 [place] # 1.1 H (0.0-0.8) K/mm3 Eos # 0.1 (0.0-0.4) K/mm3 Baso # 0.1 (0.0-0.1) K/mm3 Comprehensive Metabolic Panel 05/19/18 Range/Units 03:30 Sodium 143 (137-145) mmol/L Potassium 5.0 (3.6-5.0) mmol/L Chloride 99.3 (98-107) mmol/L Carbon Dioxide 35 H (22-30) mmol/L BUN 14 (7-17) mg/dL Creatinine 0.8 (0.7-1.2) mg/dL Glucose 114 H (65-100) mg/dL Calcium 8.8 (8.4-10.2) mg/dL Assessment and Plan Acute respiratory failure Decompensated heart failure COPD on oxygen as an outpatient Dilated Nonischemic Cardiomyopathy LHC at [facility] in 2013: no significant CAD, EF 45% moderately decrease LVEF 20-25% by echo 08/2017 Chronic elevated troponin Recommend: Fluid/sodium restriction. Aggressive heart failure management including diuretics, afterload agents, beta blockers and oral antiplatelet therapy.
[2018-05-19] MEDS ORDERED: HumaLOG SUB-Q ONE (12:14)
[2018-05-19] MEDS: HumaLOG SUB-Q SCH ×2 (12:15→20:02)
--- NOTE | 2018-05-19 12:30 | Consultation ---
History of Present Illness Consult date: 05/19/18 Requesting physician: ALEX GUNN Reason for consult: COPD, other (Acute CHF Exacerbation; Acute on Chronic Hypoxemidc Respiratory Failure) History of present illness: PULMONARY/CCM CONSULT NOTE (Full dictation # [id number]) Please see dictated notes for full details Medications and Allergies Allergies Allergy/AdvReac Type Severity Reaction Status Date / Time Penicillins Allergy Unknown Verified 03/28/18 09:27 Sulfa (Sulfonamide Allergy Unknown Verified 03/28/18 09:27 Antibiotics) sulfabenzamide Allergy Unknown Verified 03/28/18 09:27 Home Medications Medication Instructions Recorded Confirmed Last Taken Type Docusate Sodium [Colace CAP] 100 mg PO BID 08/22/17 05/19/18 Unknown History Fluticasone [Flonase] 1 spray NS BID 08/22/17 05/19/18 Unknown History Loratadine [Claritin] 10 mg PO DAILY 08/22/17 05/19/18 Unknown History Carvedilol [Coreg] 3.125 mg PO BID #60 tablet 09/02/17 05/19/18 Unknown Rx QUEtiapine [SEROquel] 200 mg PO QHS tablet 01/22/18 05/19/18 Unknown Rx traZODone [Desyrel] 50 mg PO QHS tablet 01/22/18 05/19/18 Unknown Rx AtorvaSTATin [Lipitor] 40 mg PO QHS 02/02/18 05/19/18 Unknown History Budesonide [Pulmicort] 0.5 mg IH BID 02/02/18 05/19/18 Unknown History Famotidine [Pepcid] 20 mg PO DAILY 02/02/18 05/19/18 Unknown History Montelukast [Singulair] 10 mg PO QHS 02/02/18 05/19/18 Unknown History Sennosides [Senna] 17.2 mg PO QHS 02/02/18 05/19/18 Unknown History Sorbitol 70% 30 ml PO BID 02/02/18 05/19/18 Unknown History Spironolactone [Aldactone] 12.5 mg PO DAILY 02/02/18 05/19/18 Unknown History Furosemide [Lasix TAB] 40 mg PO DAILY@0600 #30 tablet 02/05/18 05/19/18 Unknown Rx LORazepam [Ativan] 1 mg PO Q6H #7 tablet 02/05/18 05/19/18 Unknown Rx Methadone [Dolophine] 5 mg PO BID #7 tablet 02/05/18 05/19/18 Unknown Rx Hydralazine HCl 37.5 mg PO Q8H 03/28/18 05/19/18 Unknown History Isosorbide Dinitrate [Isordil 20 mg PO Q8H 03/28/18 05/19/18 Unknown History Titradose] Losartan [Cozaar] 100 mg PO QDAY 03/28/18 05/19/18 Unknown History Metformin HCl [Glucophage] 1,000 mg PO BID 03/28/18 05/19/18 Unknown History ALBUTEROL NEB's [Proventil 0.083% 2.5 mg IH Q4HR PRN 04/26/18 05/19/18 Unknown History NEBS] Acetaminophen [Acetaminophen TAB] 650 mg PO Q6HR PRN 04/26/18 05/19/18 Unknown History Aspirin EC [Aspirin Enteric Coated 325 mg PO QDAY 04/26/18 05/19/18 Unknown History TAB] Insulin Regular, Human [HumuLIN R] See Protocol SUB-Q AC 04/26/18 05/19/18 Unknown History Ipratropium/Albuterol Sulfate 1 ampul IH TID 04/26/18 05/19/18 Unknown History [DUONEB *Not for PRN Use*] Polyethylene Glycol 3350 [Miralax 17 gm PO QDAY PRN 04/26/18 05/19/18 Unknown History 3350] Potassium Chloride 20 meq PO QDAY 04/26/18 05/19/18 Unknown History Active Meds: Active Medications Acetaminophen (Tylenol) 650 mg PO Q4H PRN PRN Reason: Pain MILD(1-3)/Fever >100.5/ARMSTRONG Albuterol/Ipratropium (Duoneb *Not For Prn Use*) 1 ampul IH Q6HRT [facility] Dextrose (D50w (25gm) Syringe) 50 ml IV PRN PRN PRN Reason: Hypoglycemia Furosemide (Lasix) 40 mg IV 0600,1800 JOE Levofloxacin/Dextrose (Levaquin 750mg/150ml) 750 mg in 150 mls @ 100 mls/hr IV Q24HR [facility]; Protocol Insulin Human Lispro (Humalog) 0 unit SUB-Q Q6HR [facility]; Protocol Last Admin: 05/19/18 12:15 Dose: 3 unit Documented by: Methylprednisolone Sodium Succinate (Solu-Medrol) 125 mg IV Q6H [facility] Last Admin: 05/19/18 08:55 Dose: 125 mg Documented by: Ondansetron HCl (Zofran) 4 mg IV Q8H PRN PRN Reason: Nausea And Vomiting Sodium Chloride (Sodium Chloride Flush Syringe 10 Ml) 10 ml IV BID JOE Sodium Chloride (Sodium Chloride Flush Syringe 10 Ml) 10 ml IV PRN PRN PRN Reason: LINE FLUSH Physical Examination Vital signs: Vital Signs Pulse Resp 103 H 14 05/19/18 03:00 05/19/18 03:00 Results - Laboratory Findings CBC and BMP: 05/19/18 03:30 05/19/18 03:30 ABG POC ABG pH 7.244 (7.35-7.45) L 05/19/18 10:12 POC ABG pCO2 85.2 (35-45) H 05/19/18 10:12 POC ABG pO2 62 (80-105) L 05/19/18 10:12 POC ABG HCO3 36.8 05/19/18 10:12 POC ABG Total CO2 39 05/19/18 10:12 POC ABG O2 Sat 85 05/19/18 10:12 PT/INR, D-dimer PT 14.1 Sec. (12.2-14.9) 05/19/18 03:30 INR 1.05 (0.87-1.13) 05/19/18 03:30 Abnormal lab findings: Abnormal Labs 05/19/18 05/19/18 05/19/18 03:15 03:30 03:30 RDW 18.2 H Plt Count 126 L [place] % (Auto) 14.0 H [place] # 1.1 H POC ABG pH 7.220 L POC ABG pCO2 94.1 H POC ABG pO2 66 L Carbon Dioxide 35 H Glucose 114 H POC Glucose CK-MB (CK-2) 5.8 H CK-MB (CK-2) Rel Index 6.1 H Troponin T 0.233 H* NT-Pro-B Natriuret Pep 05/19/18 05/19/18 05/19/18 03:41 05:00 06:39 RDW Plt Count [place] % (Auto) [place] # POC ABG pH 7.244 L POC ABG pCO2 85.3 H POC ABG pO2 Carbon Dioxide Glucose POC Glucose 112 H CK-MB (CK-2) CK-MB (CK-2) Rel Index Troponin T NT-Pro-B Natriuret Pep 4192 H 05/19/18 05/19/18 05/19/18 06:44 10:12 12:04 RDW Plt Count [place] % (Auto) [place] # POC ABG pH 7.244 L POC ABG pCO2 85.2 H POC ABG pO2 62 L Carbon Dioxide Glucose POC Glucose 152 H CK-MB (CK-2) 5.8 H CK-MB (CK-2) Rel Index 6.9 H Troponin T 0.197 H* NT-Pro-B Natriuret Pep
--- NOTE | 2018-05-19 13:57 | Cat Scan Report ---
FINAL REPORT EXAM: CT HEAD/BRAIN WO CON HISTORY: ams TECHNIQUE: CT examination of the head without IV contrast PRIORS: None. FINDINGS: Nonspecific partial opacification in the right mastoid air cells. Small mastoid air cell fluid levels inferiorly. Left mastoid air cells clear as well as bilateral middle ear cavities. Slight mucosal thickening left sphenoid sinus. Otherwise clear paranasal sinuses. Cortical and subcortical white matter hypodensity is nonspecific in the parietal lobe bilaterally and relatively symmetrically. There appears to be associated volume loss and likely encephalomalacia. Fi ndings suggest chronic infarcts or chronic sequela from prior trauma. An acute or subacute component cannot be entirely excluded with CT and would require MRI with diffusion-weighted imaging. Cerebrovascular atherosclerosis is manifest as calcified plaque in the carotid siphons and the verteb ral arteries. Bone windows demonstrate no acute fracture. The brain is without hemorrhage. There is no extra-axial intracranial bleed, brain bleed, or midline shift. The ventricles and sulci are age-appropriate. IMPRESSION: Nonspecific cortical and subcortical white matter hypodensity is nonspecific and relatively symmetric bilaterally in the parietal lobe. There appears to be associated volume loss and likely encephalomal acia. Findings suggest chronic infarcts or chronic sequela from prior trauma. An acute or subacute co mponent cannot be entirely excluded with CT and would require MRI follow-up with diffusion-weighted i maging. Right mastoid air cell opacity with small fluid levels may reflect eustachian tube dysfunction. Diffe rential includes acute right mastoiditis
[2018-05-19 14:31] LABS: Creatine Kinase MB 6.1 ng/mL (0.0-4.0)
[2018-05-19] MEDS: MORPHINE IV PRN (15:13)
[2018-05-19] MEDS: SOLU-Medrol IV SCH ×2 (15:13→21:18)
[2018-05-19] MEDS: ZOFRAN IV PRN (15:39)
[2018-05-19] MEDS ORDERED: ATIVAN IV PRN (19:11)
[2018-05-19] MEDS: PULMICORT IH SCH (19:16)
[2018-05-19] MEDS: BROVANA NEBU IH SCH (19:16)
[2018-05-19] MEDS: LASIX IV SCH (20:01)
[2018-05-19] MEDS: ATIVAN IV PRN (20:02)
[2018-05-19] MEDS: SODIUM CHLORIDE FLUSH SYRINGE 10 ML IV SCH ×2 (20:32→21:18)
[2018-05-20] MEDS: HumaLOG SUB-Q SCH ×3 (00:18→15:32)
[2018-05-20] MEDS: ATIVAN IV PRN ×4 (00:18→20:31)
--- NOTE | 2018-05-20 00:27 | Consultation ---
PULMONARY CRITICAL CARE CONSULT NOTE CONSULTING PHYSICIAN: Lise Hwang MD REASON FOR CONSULTATION: [id number] hypoxemic respiratory failure, acute congestive heart failure exacerbation. CHIEF COMPLAINT AND HISTORY OF PRESENT ILLNESS: As follows: The patient is a 47-year-old -[place]ammar[place] female known to me from prior admissions with past medical history significant amongst other things both for a diagnosis of COPD and CHF, but also will be having a diagnosis of schizophrenia. She came into the Emergency Room from the care home secondary to increasing shortness of breath and confusion. She was hypercapnic. She was hypoxemic. She was started on bilevel positive airway pressure ventilation therapy and she got a little bit better; however, she soon began to have fits of anger and pulling off her BiPAP. Her hypercapnia increased. ICU admission was requested. When I stopped by to see her in the Emergency Room, she was feeling a little bit better. She was still trying to not use the BiPAP mask. She said she is tired of it all. She has wanted to be do not resuscitate at 2 prior admissions, and today, she tells me she does not want me to put her on a breathing machine. She denies nausea, vomiting, or overt aspiration. She denies chest pains or palpitations. This really is much of the history of presentation that she is going to give me. She does admit to still continuing to smoke. PAST MEDICAL HISTORY: COPD, CHF, diabetes, hyperlipidemia, schizophrenia, depression, obstructive sleep apnea, bipolar disorder, hypertension, morbid obesity. PAST SURGICAL HISTORY: She has had a hysterectomy, colectomy and a previous tracheostomy tube. MEDICATIONS: She was on at the time I stopped by to see were reviewed, pertinent medications include the following: Tylenol 650 mg p.o. q. 4 hours p.r.n. mild pain or fevers, DuoNeb nebulizer treatments nebulized q. 6 hours scheduled, Lasix 40 mg IV b.i.d., insulin via sliding scale, Levaquin 750 mg IV daily, Solu-Medrol 125 mg IV q. 6 hours scheduled, Zofran 4 mg IV q. 8 hours p.r.n. nausea and vomiting. ALLERGIES: PENICILLINS AND SULFA DRUGS. Nature of this allergy is unknown. DIET: Morbidly obese. No significant weight loss since I have last seen her. FAMILY AND SOCIAL HISTORY: longterm resident. Denies current alcohol or illicit drug use or abuse. She used to smoke tobacco, has a 10+ pack year tobacco smoking history. There is a family history of hypertension. REVIEW OF SYSTEMS: Difficult to obtain because of her mental condition at this time, but since she has been here, no gross hematochezia or melena, no gross hematuria. She denies dysuria. No new onset focal weakness. No witnessed seizures. Review of systems; otherwise, unobtainable or as in the body of the history above. PHYSICAL EXAMINATION: VITAL SIGNS: At presentation in the emergency room, she was afebrile, temperature 97.6 degrees Fahrenheit, pulse 103, respiratory rate 14, blood pressure 118/79 and O2 sats were 92%, inspired oxygen concentration was not recorded. At the time I saw her, she was on a BiPAP machine 20 IPAP, 10 EPAP at a rate of 16 with 60% FIO2. Her O2 sats were 98%. GENERAL: She is obese, middle-aged -[place] female, normocephalic with a tracheostomy scar over her neck with mildly to moderately increased respiratory distress at rest. HEAD, EYES, EARS, NOSE AND THROAT: She is anicteric. No conjunctival erythema. Oropharynx is dry. It is a Mallampati #3 oropharynx. She has a midline old healed tracheostomy scar in her neck. No gross thyromegaly. No jugular venous distention. Grossly, no palpable lymph nodes in the supraclavicular or submandibular lymph node chains. LUNGS: Auscultation of both lung yu revealed diminished breath sounds, bilateral rales, prolonged expiratory phase. No active wheezing. HEART: Heart sounds 1 and 2 are heard. They were regular in rate and rhythm at the time of my evaluation without rubs or murmurs. ABDOMEN: Soft, full, bowel sounds are positive, nontender. No palpable hepatosplenomegaly. EXTREMITIES: Without overt digital clubbing or cyanosis. She has 1+ bipedal pitting edema. Dorsalis pedis pulses are palpable bilaterally. NEUROLOGIC: Pupils are equal, round, about 4 mm, reactive to light. Extraocular muscle movements are intact. She moves all 4 extremities spontaneously. The skin is of normal turgor without cellulitis or rash. LABORATORY DATA: From my review, white cell count 8200, hemoglobin 11.7, hematocrit 36.9, platelet count 126. No manual differential. INR within normal limits. Arterial blood gas showed a pH of 7.22, pCO2 of 94 and a pO2 of 66,000 on 45% FiO2. Most recent gas, the pH of 7.24, pCO2 was 85, pO2 of 62 that was on 60% FiO2. Serum sodium 143, potassium 5.0, chloride 99, bicarbonate 35, BUN 14, creatinine 0.8, glucose was 114. Troponin is up at 0.233. BNP is up at 4192. MICROBIOLOGY STUDIES: Blood cultures 2 sets have been sent, no growth to date. Chest x-ray has been reviewed and I have compared it with an x-ray from 04/26/2018 of the same year. There are increased interstitial markings including hilar congestion, worse than the 04/26/2018 x-ray and consistent with moderate interstitial edema. I cannot rule out obviously an occult pneumonia. ASSESSMENT AND PLAN: 1. Dbrxo-pr-ubaxnuw hypercapnic hypoxemic respiratory failure. 2. Acute chronic obstructive pulmonary disease exacerbation. 3. Acute congestive heart failure exacerbation. 4. Possible pneumonia. 5. Respiratory acidosis. 6. Non-ST elevation myocardial infarction. 7. Morbid obesity. 8. Schizophrenia. 9. Diabetes. 10. Hyperlipidemia. 11. Obstructive sleep apnea. 12. Depression. 13. Hypertension. 14. Morbid obesity. PLAN: I have spoken with her at length. She agrees to use the BiPAP 4 hours on, 4 hours off to give her breaks in between. She still maintains that she does not want to be intubated. We will continue the b.i.d. diuresis at the current dose. She is putting out good urine. We will also continue systemic steroids; however, I will reduce the dose. I think this is primarily CHF as against COPD flare-up per se. I will reduce the Solu-Medrol to 60 mg IV q. 8 hours. We will continue DuoNeb treatments as ordered. I will also add long-acting bronchodilators, Brovana as well as inhaled corticosteroids, Pulmicort. Oxygen will be weaned to keep sats greater than or equal to about 90%. Aspiration precautions will be maintained. She will get sips of water p.r.n. and the BiPAP will be humidified to help improve her tolerance. Cardiology evaluation is ongoing for an acute coronary syndrome. I will defer to them. Electrolytes will be followed and corrected as necessary. Glucose control will be via sliding scale insulin for target blood glucose of 140-180 mg/dL acutely. We will continue her chronic home medications. We will continue empiric antibiotics with IV Levaquin therapy. Follow cultures. I will get a CRP level also to help make clinical decisions and deescalate antibiotics. She is appropriately going to be put on GI and DVT prophylaxis. Flu and pneumonia vaccination will be addressed per protocol. Thank you very much for the consult. We will follow along and make further recommendations as picture progresses/becomes clearer. She is critically ill on life-sustaining interventions including the continuous noninvasive ventilation, at high risk for from decompensation in the cardiopulmonary systems. If she maintains the BiPAP and continues to oxygenate well, I will downgrade her to the step-down unit. I have discussed also her code status requirements with the attending and we will document this. Again, at this time, I spent about 35-40 minutes of critical care time without overlap and excluding any procedural time that may be necessary. JOB# [id number] CHELSEA/BRITNI
[2018-05-20] MEDS: DUONEB *Not for PRN Use IH SCH ×4 (01:52→20:15)
[2018-05-20] MEDS: MORPHINE IV PRN ×2 (04:51→19:35)
[2018-05-20] MEDS: SOLU-Medrol IV SCH ×3 (04:51→21:42)
[2018-05-20] MEDS: LASIX IV SCH ×2 (05:00→18:45)
[2018-05-20 05:54] LABS: Hemoglobin 11.4 gm/dl (10.1-14.3); Red Blood Count 3.93 M/mm3 (3.65-5.03)
[2018-05-20 05:55] LABS: Basophils % (Auto) 0.1 % (0.0-1.8); Hematocrit 36.2 % (30.3-42.9); Lymphocytes # (Auto) 0.9 K/mm3 (1.2-5.4); Lymphocytes % (Auto) 14.6 % (13.4-35.0); Mean Corpuscular HGB Conc 32 % (30-34); Mean Corpuscular Volume 92 fl (79-97); Monocytes # (Auto) 0.4 K/mm3 (0.0-0.8); Monocytes % (Auto) 5.4 % (0.0-7.3); Platelet Count 143 K/mm3 (140-440); Red Cell Distribution Width 18.1 % (13.2-15.2)
[2018-05-20 06:08] LABS: BUN/Creatinine Ratio 23; Blood Urea Nitrogen 18 mg/dL (7-17); Calcium 9.2 mg/dL (8.4-10.2); Hemolysis Index 33
[2018-05-20] MEDS: PULMICORT IH SCH ×2 (08:45→20:13)
[2018-05-20] MEDS: BROVANA NEBU IH SCH ×2 (08:45→20:13)
--- NOTE | 2018-05-20 09:03 | Progress Note ---
Assessment and Plan -Acute and chronic hypercapnic respiratory failure -Acute hypoxemic respiratory failure -h/o trachesotomy -AE-COPD -Hypernatremia Metabolic alkalosis -CHF exacerbation -NSTEMI -Morbid obesity -Sleep apnea -Schizophrenia Supplemental oxygen to keep O2 sats 88-90% -Oxygen restrictive strategies -ABG -VTE prophylaxis -Bronchodilators -NIPPV QHS and prn -Limit narcotics and benzodiazepines -Cardioprotective measures -Heart failure measures -Place small bowel feeding tube to resume chronic home medications -Free water to treat hypernatremia -Limit diuretic therapy as she appears to have contraction alkalosis as evidenced by hypernatremia and metabolic alkalosis -Short steroid taper -Analgesia -Nutritional support -PT/OT to evaluate and treat -Life style modifications and weight loss strategies on discharge Discussed extensively with RT and RN CODE STATUS: FULL CONDITION: CRITICAL PROGNOSIS: GUARDED The high probability of a clinically significant, sudden or life threatening deterioration of the [Pulmonary,cardiac & neurologic] system(s) required my full and direct attention, intervention and personal management. The aggregate critical care time was [35] minutes. This time is in addition to time spent performing reported procedures but includes the following: [x] Data Review and interpretation [x] Patient assessment and monitoring of vital signs [x] Documentation Subjective Date of service: 05/20/18 Principal diagnosis: Acute on chronic hypercapnic, hypoxemic resp failure, AE- COPD, Interval history: Follow up for :Acute on chronic hypercapnic, hypoxemic resp failure, AE-COPD, Acute encephaloapthy, Morbid obesity with sleep apnea Seen and examined. 24 hour events reviewed with RN. De La Vega, labs, medications, cahrt and imaging reviewed Patient is encephaloapthic, received lorazepam prior to 2D echocardiogram was done. Currently on Venturi-mask at 35% Somnolent but will arouse with stimulation. No documented fevers, no vomiting, on going intermittent complains of pain Objective - Exam Narrative Exam: GEN: Not in acute distress, Obese, on Venturi mask at 35% Obese, in restrains, healed tracheal stoma scar HEENT: Normocephalic, atraumatic, Neck: supple, No JVD, no adenopathy Lungs: Decreased breath sounds bilaterally, bilateral rhonchi, crackles Heart:S1 and S2 regular, no murmurs, rubs or gallop, Abd:soft, non tender, non distended, normal bowel sounds Ext: No edema, no clubbing or cyanosis Neuro: Lethargic, moves all extremities, but not following commands Vital Signs - 12hr 05/19/18 05/19/18 05/19/18 21:11 21:21 21:31 Temperature Pulse Rate 107 H 95 H 97 H Pulse Rate [ Anterior Bilateral Upper Lobe] Pulse Rate [ From Monitor] Respiratory 19 15 14 Rate Respiratory Rate [Anterior Bilateral Upper Lobe] Blood Pressure 145/74 145/74 145/74 O2 Sat by Pulse 70 L 95 98 Oximetry 05/19/18 05/19/18 05/19/18 21:41 21:51 22:00 Temperature Pulse Rate 97 H 96 H 92 H Pulse Rate [ Anterior Bilateral Upper Lobe] Pulse Rate [ From Monitor] Respiratory 17 13 14 Rate Respiratory Rate [Anterior Bilateral Upper Lobe] Blood Pressure 145/74 145/74 144/79 O2 Sat by Pulse 98 97 Oximetry 05/19/18 05/19/18 05/19/18 22:11 22:21 22:31 Temperature Pulse Rate 94 H 92 H 94 H Pulse Rate [ Anterior Bilateral Upper Lobe] Pulse Rate [ From Monitor] Respiratory 16 13 12 Rate Respiratory Rate [Anterior Bilateral Upper Lobe] Blood Pressure 144/79 144/79 144/79 O2 Sat by Pulse 98 96 96 Oximetry 05/19/18 05/19/18 05/19/18 22:41 22:51 23:00 Temperature Pulse Rate 97 H 98 H 90 Pulse Rate [ Anterior Bilateral Upper Lobe] Pulse Rate [ From Monitor] Respiratory 18 11 L 20 Rate Respiratory Rate [Anterior Bilateral Upper Lobe] Blood Pressure 144/79 144/79 147/83 O2 Sat by Pulse 98 95 97 Oximetry 05/19/18 05/19/18 05/19/18 23:11 23:21 23:31 Temperature Pulse Rate 94 H 110 H 91 H Pulse Rate [ Anterior Bilateral Upper Lobe] Pulse Rate [ From Monitor] Respiratory 15 26 H 16 Rate Respiratory Rate [Anterior Bilateral Upper Lobe] Blood Pressure 147/83 147/83 147/83 O2 Sat by Pulse 96 61 L 98 Oximetry 05/19/18 05/19/18 05/20/18 23:41 23:51 00:00 Temperature 97.9 F Pulse Rate 96 H 96 H 99 H Pulse Rate [ Anterior Bilateral Upper Lobe] Pulse Rate [ 95 H From Monitor] Respiratory 20 17 11 L Rate Respiratory Rate [Anterior Bilateral Upper Lobe] Blood Pressure 147/83 147/83 128/91 O2 Sat by Pulse 99 100 96 Oximetry 05/20/18 05/20/18 05/20/18 00:11 00:15 00:21 Temperature Pulse Rate 90 89 87 Pulse Rate [ Anterior Bilateral Upper Lobe] Pulse Rate [ From Monitor] Respiratory 10 L 10 L 11 L Rate Respiratory Rate [Anterior Bilateral Upper Lobe] Blood Pressure 128/91 128/91 128/91 O2 Sat by Pulse 97 98 98 Oximetry 05/20/18 05/20/18 05/20/18 00:24 00:31 00:41 Temperature Pulse Rate 94 H 90 97 H Pulse Rate [ Anterior Bilateral Upper Lobe] Pulse Rate [ From Monitor] Respiratory 26 H 14 16 Rate Respiratory Rate [Anterior Bilateral Upper Lobe] Blood Pressure 128/91 128/91 O2 Sat by Pulse 98 94 97 Oximetry 05/20/18 05/20/18 05/20/18 00:51 01:01 01:11 Temperature Pulse Rate 100 H 93 H 88 Pulse Rate [ Anterior Bilateral Upper Lobe] Pulse Rate [ From Monitor] Respiratory 16 13 17 Rate Respiratory Rate [Anterior Bilateral Upper Lobe] Blood Pressure 128/91 138/83 138/83 O2 Sat by Pulse 96 94 95 Oximetry 05/20/18 05/20/18 05/20/18 01:21 01:31 01:41 Temperature Pulse Rate 90 96 H 95 H Pulse Rate [ Anterior Bilateral Upper Lobe] Pulse Rate [ From Monitor] Respiratory 16 17 14 Rate Respiratory Rate [Anterior Bilateral Upper Lobe] Blood Pressure 138/83 138/83 138/83 O2 Sat by Pulse 97 96 96 Oximetry 05/20/18 05/20/18 05/20/18 01:51 01:52 02:00 Temperature Pulse Rate 95 H 87 Pulse Rate [ 94 H 90 Anterior Bilateral Upper Lobe] Pulse Rate [ From Monitor] Respiratory 13 13 Rate Respiratory 26 H 25 H Rate [Anterior Bilateral Upper Lobe] Blood Pressure 138/83 131/83 O2 Sat by Pulse 96 98 Oximetry 05/20/18 05/20/18 05/20/18 02:11 02:17 02:21 Temperature Pulse Rate 82 91 H 97 H Pulse Rate [ Anterior Bilateral Upper Lobe] Pulse Rate [ From Monitor] Respiratory 12 26 H 19 Rate Respiratory Rate [Anterior Bilateral Upper Lobe] Blood Pressure 131/83 131/83 O2 Sat by Pulse 95 97 98 Oximetry 05/20/18 05/20/18 05/20/18 02:31 02:41 02:51 Temperature Pulse Rate 82 80 87 Pulse Rate [ Anterior Bilateral Upper Lobe] Pulse Rate [ From Monitor] Respiratory 13 11 L 17 Rate Respiratory Rate [Anterior Bilateral Upper Lobe] Blood Pressure 131/83 131/83 131/83 O2 Sat by Pulse 95 96 95 Oximetry 05/20/18 05/20/18 05/20/18 03:00 03:11 03:21 Temperature Pulse Rate 86 108 H 107 H Pulse Rate [ Anterior Bilateral Upper Lobe] Pulse Rate [ From Monitor] Respiratory 16 23 24 Rate Respiratory Rate [Anterior Bilateral Upper Lobe] Blood Pressure 118/68 118/68 118/68 O2 Sat by Pulse 95 96 98 Oximetry 05/20/18 05/20/18 05/20/18 03:31 03:41 03:51 Temperature Pulse Rate 107 H 103 H 96 H Pulse Rate [ Anterior Bilateral Upper Lobe] Pulse Rate [ From Monitor] Respiratory 24 15 23 Rate Respiratory Rate [Anterior Bilateral Upper Lobe] Blood Pressure 118/68 118/68 118/68 O2 Sat by Pulse 96 96 94 Oximetry 05/20/18 05/20/18 05/20/18 04:00 04:01 04:51 Temperature 98.1 F Pulse Rate 100 H Pulse Rate [ Anterior Bilateral Upper Lobe] Pulse Rate [ 93 H From Monitor] Respiratory 16 18 14 Rate Respiratory Rate [Anterior Bilateral Upper Lobe] Blood Pressure 116/81 O2 Sat by Pulse 95 92 Oximetry 05/20/18 05/20/18 05/20/18 05:01 06:00 07:01 Temperature Pulse Rate 92 H 80 112 H Pulse Rate [ Anterior Bilateral Upper Lobe] Pulse Rate [ From Monitor] Respiratory 11 L 12 19 Rate Respiratory Rate [Anterior Bilateral Upper Lobe] Blood Pressure 139/103 113/65 113/65 O2 Sat by Pulse 93 94 92 Oximetry 05/20/18 05/20/18 05/20/18 08:00 08:01 08:45 Temperature Pulse Rate 81 92 H Pulse Rate [ 82 84 Anterior Bilateral Upper Lobe] Pulse Rate [ From Monitor] Respiratory 25 H 16 Rate Respiratory 25 H 17 Rate [Anterior Bilateral Upper Lobe] Blood Pressure 137/85 113/65 O2 Sat by Pulse 95 98 Oximetry CBC and BMP: 05/21/18 05:03 05/21/18 05:03 ABG, PT/INR, D-dimer: ABG POC ABG pH 7.271 (7.35-7.45) L 05/19/18 18:26 POC ABG pCO2 84.6 (35-45) H 05/19/18 18:26 POC ABG pO2 66 (80-105) L 05/19/18 18:26 POC ABG HCO3 39.0 05/19/18 18:26 POC ABG Total CO2 42 05/19/18 18:26 POC ABG O2 Sat 88 05/19/18 18:26 PT/INR, D-dimer PT 14.1 Sec. (12.2-14.9) 05/19/18 03:30 INR 1.05 (0.87-1.13) 05/19/18 03:30 Abnormal lab findings: Abnormal Labs 05/19/18 05/19/18 05/19/18 03:15 03:30 03:30 RDW 18.2 H Plt Count 126 L [place] % (Auto) 14.0 H Lymph # [place] # 1.1 H Seg Neutrophils % POC ABG pH 7.220 L POC ABG pCO2 94.1 H POC ABG pO2 66 L Sodium Carbon Dioxide 35 H BUN Glucose 114 H POC Glucose CK-MB (CK-2) 5.8 H CK-MB (CK-2) Rel Index 6.1 H Troponin T 0.233 H* NT-Pro-B Natriuret Pep 05/19/18 05/19/18 05/19/18 03:41 05:00 06:39 RDW Plt Count [place] % (Auto) Lymph # [place] # Seg Neutrophils % POC ABG pH 7.244 L POC ABG pCO2 85.3 H POC ABG pO2 Sodium Carbon Dioxide BUN Glucose POC Glucose 112 H CK-MB (CK-2) CK-MB (CK-2) Rel Index Troponin T NT-Pro-B Natriuret Pep 4192 H 05/19/18 05/19/18 05/19/18 06:44 10:12 12:04 RDW Plt Count [place] % (Auto) Lymph # [place] # Seg Neutrophils % POC ABG pH 7.244 L POC ABG pCO2 85.2 H POC ABG pO2 62 L Sodium Carbon Dioxide BUN Glucose POC Glucose 152 H CK-MB (CK-2) 5.8 H CK-MB (CK-2) Rel Index 6.9 H Troponin T 0.197 H* NT-Pro-B Natriuret Pep 05/19/18 05/19/18 05/19/18 13:56 18:26 19:55 RDW Plt Count [place] % (Auto) Lymph # [place] # Seg Neutrophils % POC ABG pH 7.271 L POC ABG pCO2 84.6 H POC ABG pO2 66 L Sodium Carbon Dioxide BUN Glucose POC Glucose 170 H CK-MB (CK-2) 6.1 H CK-MB (CK-2) Rel Index 7.1 H Troponin T 0.138 H* D NT-Pro-B Natriuret Pep 05/19/18 05/20/18 05/20/18 23:31 04:53 05:06 RDW 18.1 H Plt Count [place] % (Auto) Lymph # 0.9 L [place] # Seg Neutrophils % 79.9 H POC ABG pH POC ABG pCO2 POC ABG pO2 Sodium Carbon Dioxide BUN Glucose POC Glucose 168 H 148 H CK-MB (CK-2) CK-MB (CK-2) Rel Index Troponin T NT-Pro-B Natriuret Pep 05/20/18 05:06 RDW Plt Count [place] % (Auto) Lymph # [place] # Seg Neutrophils % POC ABG pH POC ABG pCO2 POC ABG pO2 Sodium 147 H Carbon Dioxide 35 H BUN 18 H Glucose 171 H POC Glucose CK-MB (CK-2) CK-MB (CK-2) Rel Index Troponin T NT-Pro-B Natriuret Pep Chest x-ray: image reviewed Allied health notes reviewed: RT
[2018-05-20] MEDS: LEVAQUIN 750MG/150ML 750 MG/150 ML BAG IV SCH (09:11)
[2018-05-20] MEDS ORDERED: SODIUM BICARBONATE FEEDTUBE PRN (09:22)
[2018-05-20] MEDS ORDERED: SIMPLE SYRUP FEEDTUBE PRN ×2 (09:22)
[2018-05-20] MEDS ORDERED: PANCREAZE DR 10,500 UNIT FEEDTUBE PRN (09:22)
--- NOTE | 2018-05-20 11:21 | Progress Note ---
Assessment and Plan Acute respiratory failure Chronic systolic heart failure COPD on oxygen as an outpatient Dilated Nonischemic Cardiomyopathy LHC at [facility] in 2014: no significant CAD, EF 45% moderately decrease LVEF 20-25% by echo 08/2017 Chronic elevated troponin, nonspecific Recommend: Fluid/sodium restriction. Medical management for heart failure to include diuretics, afterload agents, beta blockers and oral antiplatelet therapy. Subjective Date of service: 05/20/18 Interval history: Patient appears restless. Wrist restraints in place. Remains on Bipap Objective Vital Signs Temp Pulse Pulse Pulse Resp Resp BP 05/20/18 10:00 93 H 05/20/18 08:45 84 17 05/20/18 08:01 92 H 16 113/65 05/20/18 08:00 98.4 F 81 82 90 17 25 H 137/85 05/20/18 07:01 112 H 19 113/65 05/20/18 06:00 80 12 113/65 05/20/18 05:01 92 H 11 L 139/103 05/20/18 04:51 14 05/20/18 04:01 100 H 18 116/81 05/20/18 04:00 98.1 F 93 H 16 05/20/18 03:51 96 H 23 118/68 05/20/18 03:41 103 H 15 118/68 05/20/18 03:31 107 H 24 118/68 05/20/18 03:21 107 H 24 118/68 05/20/18 03:11 108 H 23 118/68 05/20/18 03:00 86 16 118/68 05/20/18 02:51 87 17 131/83 05/20/18 02:41 80 11 L 131/83 05/20/18 02:31 82 13 131/83 05/20/18 02:21 97 H 19 131/83 05/20/18 02:17 91 H 26 H 05/20/18 02:11 82 12 131/83 05/20/18 02:00 87 90 13 25 H 131/83 05/20/18 01:52 94 H 26 H 05/20/18 01:51 95 H 13 138/83 05/20/18 01:41 95 H 14 138/83 05/20/18 01:31 96 H 17 138/83 05/20/18 01:21 90 16 138/83 05/20/18 01:11 88 17 138/83 05/20/18 01:01 93 H 13 138/83 05/20/18 00:51 100 H 16 128/91 05/20/18 00:41 97 H 16 128/91 05/20/18 00:31 90 14 128/91 05/20/18 00:24 94 H 26 H 05/20/18 00:21 87 11 L 128/91 05/20/18 00:15 89 10 L 128/91 05/20/18 00:11 90 10 L 128/91 05/20/18 00:00 97.9 F 99 H 95 H 11 L 128/91 05/19/18 23:51 96 H 17 147/83 05/19/18 23:41 96 H 20 147/83 05/19/18 23:31 91 H 16 147/83 05/19/18 23:21 110 H 26 H 147/83 05/19/18 23:11 94 H 15 147/83 05/19/18 23:00 90 20 147/83 05/19/18 22:51 98 H 11 L 144/79 05/19/18 22:41 97 H 18 144/79 05/19/18 22:31 94 H 12 144/79 05/19/18 22:21 92 H 13 144/79 05/19/18 22:11 94 H 16 144/79 05/19/18 22:00 92 H 14 144/79 05/19/18 21:51 96 H 13 145/74 05/19/18 21:41 97 H 17 145/74 05/19/18 21:31 97 H 14 145/74 05/19/18 21:21 95 H 15 145/74 05/19/18 21:11 107 H 19 145/74 05/19/18 21:01 96 H 12 145/74 05/19/18 20:51 97 H 16 149/84 05/19/18 20:41 99 H 12 149/84 05/19/18 20:31 95 H 10 L 149/84 05/19/18 20:21 101 H 15 149/84 05/19/18 20:11 99 H 11 L 149/84 05/19/18 20:01 108 H 15 149/84 05/19/18 20:00 98.2 F 93 H 11 L 05/19/18 19:53 96 H 26 H 01/30/19 19:51 110 H 96 H 15 20 136/85 05/19/18 19:41 110 H 14 136/85 05/19/18 19:31 100 H 15 136/85 05/19/18 19:21 96 H 25 H 136/85 05/19/18 19:16 95 H 26 H 05/19/18 19:11 17 136/85 05/19/18 19:00 98 H 24 136/85 05/19/18 18:51 98 H 10 L 137/79 05/19/18 18:41 99 H 19 137/79 05/19/18 18:31 96 H 17 137/79 05/19/18 18:21 98 H 13 137/79 05/19/18 18:11 100 H 20 05/19/18 18:06 98 H 15 05/19/18 17:51 99 H 19 05/19/18 17:43 99 H 20 05/19/18 16:00 101 H 16 05/19/18 15:50 98.5 F 05/19/18 14:32 93 H 22 05/19/18 14:31 89 16 05/19/18 13:06 124/74 05/19/18 13:00 124/74 05/19/18 12:56 124/74 05/19/18 12:50 124/74 05/19/18 12:46 124/74 05/19/18 12:44 124/74 05/19/18 12:26 86 19 124/74 05/19/18 12:20 88 21 124/74 05/19/18 12:16 90 19 124/74 05/19/18 12:10 91 H 19 124/74 05/19/18 12:06 89 19 124/74 05/19/18 12:00 89 24 124/74 05/19/18 11:56 90 19 124/74 05/19/18 11:50 88 25 H 124/74 05/19/18 11:46 87 18 145/81 05/19/18 11:40 88 15 145/81 05/19/18 11:36 93 H 19 145/81 05/19/18 11:30 87 16 138/83 05/19/18 11:26 88 21 138/83 05/19/18 11:20 87 17 138/83 Pulse Ox 05/20/18 10:00 05/20/18 08:45 05/20/18 08:01 98 05/20/18 08:00 94 05/20/18 07:01 92 05/20/18 06:00 94 05/20/18 05:01 93 05/20/18 04:51 05/20/18 04:01 92 05/20/18 04:00 95 05/20/18 03:51 94 05/20/18 03:41 96 05/20/18 03:31 96 05/20/18 03:21 98 05/20/18 03:11 96 05/20/18 03:00 95 05/20/18 02:51 95 05/20/18 02:41 96 05/20/18 02:31 95 05/20/18 02:21 98 05/20/18 02:17 97 05/20/18 02:11 95 05/20/18 02:00 98 05/20/18 01:52 05/20/18 01:51 96 05/20/18 01:41 96 05/20/18 01:31 96 05/20/18 01:21 97 05/20/18 01:11 95 05/20/18 01:01 94 05/20/18 00:51 96 05/20/18 00:41 97 05/20/18 00:31 94 05/20/18 00:24 98 05/20/18 00:21 98 05/20/18 00:15 98 05/20/18 00:11 97 05/20/18 00:00 96 05/19/18 23:51 100 05/19/18 23:41 99 05/19/18 23:31 98 05/19/18 23:21 61 L 05/19/18 23:11 96 05/19/18 23:00 97 05/19/18 22:51 95 05/19/18 22:41 98 05/19/18 22:31 96 05/19/18 22:21 96 05/19/18 22:11 98 05/19/18 22:00 97 05/19/18 21:51 98 05/19/18 21:41 05/19/18 21:31 98 05/19/18 21:21 95 05/19/18 21:11 70 L 05/19/18 21:01 96 05/19/18 20:51 97 05/19/18 20:41 98 05/19/18 20:31 97 05/19/18 20:21 93 05/19/18 20:11 92 05/19/18 20:01 05/19/18 20:00 99 05/19/18 19:53 96 05/19/18 19:51 05/19/18 19:41 98 05/19/18 19:31 97 05/19/18 19:21 93 05/19/18 19:16 05/19/18 19:11 94 05/19/18 19:00 93 05/19/18 18:51 98 05/19/18 18:41 97 05/19/18 18:31 94 05/19/18 18:21 98 05/19/18 18:11 92 05/19/18 18:06 93 05/19/18 17:51 95 05/19/18 17:43 92 05/19/18 16:00 96 05/19/18 15:50 05/19/18 14:32 05/19/18 14:31 05/19/18 13:06 96 05/19/18 13:00 93 05/19/18 12:56 97 05/19/18 12:50 94 05/19/18 12:46 98 05/19/18 12:44 100 05/19/18 12:26 97 05/19/18 12:20 97 05/19/18 12:16 98 05/19/18 12:10 98 05/19/18 12:06 98 05/19/18 12:00 99 05/19/18 11:56 98 05/19/18 11:50 98 05/19/18 11:46 98 05/19/18 11:40 99 05/19/18 11:36 98 05/19/18 11:30 99 05/19/18 11:26 98 05/19/18 11:20 95 - Physical Examination General: No Apparent Distress Cardiac: Positive: Reg Rate and Rhythm - Labs and Meds Cardiac Enzymes 05/19/18 Range/Units 13:56 CK-MB (CK-2) 6.1 H (0.0-4.0) ng/mL CBC 05/20/18 Range/Units 05:06 WBC 6.5 (4.5-11.0) K/mm3 RBC 3.93 (3.65-5.03) M/mm3 Hgb 11.4 (10.1-14.3) gm/dl Hct 36.2 (30.3-42.9) % Plt Count 143 (140-440) K/mm3 Lymph # 0.9 L (1.2-5.4) K/mm3 [place] # 0.4 (0.0-0.8) K/mm3 Eos # 0.0 (0.0-0.4) K/mm3 Baso # 0.0 (0.0-0.1) K/mm3 Comprehensive Metabolic Panel 05/20/18 Range/Units 05:06 Sodium 147 H (137-145) mmol/L Potassium 5.0 (3.6-5.0) mmol/L Chloride 98.6 (98-107) mmol/L Carbon Dioxide 35 H (22-30) mmol/L BUN 18 H (7-17) mg/dL Creatinine 0.8 (0.7-1.2) mg/dL Glucose 171 H (65-100) mg/dL Calcium 9.2 (8.4-10.2) mg/dL
--- NOTE | 2018-05-20 14:59 | Discharge Summary ---
Providers - Providers Date of Admission: 05/19/18 06:14 Attending physician: STEPHANIE TALLEY 05/19/18 06:14 Consult to Physician [CONS] Routine Comment: CALLED OFC/PAGED RONDA 0759/HE ADOLPH 0759 Consulting Provider: ASHANTI DAVIS Physician Instructions: Reason For Exam: copd 05/19/18 06:29 Consult to Physician [CONS] Routine Comment: Consulting Provider: ELSA HAIRSTON Physician Instructions: Reason For Exam: ab ce 05/20/18 09:22 Consult to Dietitian/Nutrition [CONS] Routine Physician Instructions: Reason For Exam: Reason for Consult: Write/Manage Tube Feeding Consult to Dietitian/Nutrition [CONS] Routine Physician Instructions: Assess nutrtn needs, initiate, modify, manage TF Reason For Exam: Reason for Consult: Write/Manage Tube Feeding Reason for Consult: Write/Manage Tube Feeding Primary care physician: PAMELA YAN Hospitalization Condition: Stable Disposition: DC-30 STILL A PATIENT Core Measure Documentation - Palliative Care Palliative Care/ Comfort Measures: Not Applicable Exam - Constitutional Vitals: Temp Pulse Resp BP Pulse Ox 98 F 111 H 17 144/83 90 05/20/18 12:00 05/20/18 14:00 05/20/18 14:00 05/20/18 12:01 05/20/18 12:01 Plan Follow up with: PAMELA YAN MD [Primary Care Provider] - 3-5 Days
--- NOTE | 2018-05-20 14:59 | Progress Note ---
Assessment and Plan Assessment and plan: Acute on chronic resp failure with hypoxia, hypercapnea. admitted to [facility] COPD exacerbation. solumedrol BIPAP Acute on chronic systolic CHF. Continue lasix iv cardiology consulted Diabetes mellitus type 2. fingerstick glucose q ac and hs Hypelipidemia hypertension Sleep apnea Full code History Interval history: Shortness of breath On BIPAP Hospitalist Physical - Physical exam Narrative exam: GEN: Not in acute distress, Obese HEENT: Normocephalic, atraumatic, Neck: supple, No JVD Lungs: Decreased breath sounds bilat, bilat rhonchi, crackles Heart:S1 and S2 regular, no murmurs, rubs or gallop, Abd:soft, non tender, non distended, normal bowel sounds Ext: No edema, no clubbing or cyanosis Neuro: Lethargic, follows commands, moves all ext - Constitutional Vitals: Temp Pulse Resp BP Pulse Ox 98 F 111 H 17 144/83 90 05/20/18 12:00 05/20/18 14:00 05/20/18 14:00 05/20/18 12:01 05/20/18 12:01 General appearance: Present: other (on Bipap therapy) Results - Labs CBC & Chem 7: 05/22/18 05:06 05/22/18 05:06 Labs: Laboratory Last Values WBC 6.5 K/mm3 (4.5-11.0) 05/20/18 05:06 RBC 3.93 M/mm3 (3.65-5.03) 05/20/18 05:06 Hgb 11.4 gm/dl (10.1-14.3) 05/20/18 05:06 Hct 36.2 % (30.3-42.9) 05/20/18 05:06 MCV 92 fl (79-97) 05/20/18 05:06 MCH 29 pg (28-32) 05/20/18 05:06 MCHC 32 % (30-34) 05/20/18 05:06 RDW 18.1 % (13.2-15.2) H 05/20/18 05:06 Plt Count 143 K/mm3 (140-440) 05/20/18 05:06 Lymph % (Auto) 14.6 % (13.4-35.0) 05/20/18 05:06 [place] % (Auto) 5.4 % (0.0-7.3) 05/20/18 05:06 Eos % (Auto) 0.0 % (0.0-4.3) 05/20/18 05:06 Baso % (Auto) 0.1 % (0.0-1.8) 05/20/18 05:06 Lymph # 0.9 K/mm3 (1.2-5.4) L 05/20/18 05:06 [place] # 0.4 K/mm3 (0.0-0.8) 05/20/18 05:06 Eos # 0.0 K/mm3 (0.0-0.4) 05/20/18 05:06 Baso # 0.0 K/mm3 (0.0-0.1) 05/20/18 05:06 Seg Neutrophils % 79.9 % (40.0-70.0) H 05/20/18 05:06 Seg Neutrophils # 5.2 K/mm3 (1.8-7.7) 05/20/18 05:06 PT 14.1 Sec. (12.2-14.9) 05/19/18 03:30 INR 1.05 (0.87-1.13) 05/19/18 03:30 APTT 26.8 Sec. (24.2-36.6) 05/19/18 03:30 POC ABG pH 7.303 (7.35-7.45) L 05/20/18 11:38 POC ABG pCO2 90.0 (35-45) H 05/20/18 11:38 POC ABG pO2 103 (80-105) 05/20/18 11:38 POC ABG HCO3 44.6 05/20/18 11:38 POC ABG Total CO2 47 05/20/18 11:38 POC ABG O2 Sat 97 05/20/18 11:38 POC ABG Base Excess 18 05/20/18 11:38 FiO2 60 % 05/20/18 11:38 Sodium 147 mmol/L (137-145) H 05/20/18 05:06 Potassium 5.0 mmol/L (3.6-5.0) 05/20/18 05:06 Chloride 98.6 mmol/L (98-107) 05/20/18 05:06 Carbon Dioxide 35 mmol/L (22-30) H 05/20/18 05:06 Anion Gap 18 mmol/L 05/20/18 05:06 BUN 18 mg/dL (7-17) H 05/20/18 05:06 Creatinine 0.8 mg/dL (0.7-1.2) 05/20/18 05:06 Estimated GFR > 60 ml/min 05/20/18 05:06 BUN/Creatinine Ratio 23 % 05/20/18 05:06 Glucose 171 mg/dL (65-100) H 05/20/18 05:06 POC Glucose 183 (70-105) H 05/20/18 12:13 Calcium 9.2 mg/dL (8.4-10.2) 05/20/18 05:06 Total Creatine Kinase 85 units/L (30-135) 05/19/18 13:56 CK-MB (CK-2) 6.1 ng/mL (0.0-4.0) H 05/19/18 13:56 CK-MB (CK-2) Rel Index 7.1 (0-4) H 05/19/18 13:56 Troponin T 0.138 ng/mL (0.00-0.029) H* D 05/19/18 13:56 NT-Pro-B Natriuret Pep 4192 pg/mL (0-450) H 05/19/18 03:41 Triglycerides 81 mg/dL (2-149) 05/19/18 03:30 Cholesterol 125 mg/dL (50-199) 05/19/18 03:30 LDL Cholesterol Direct 58 mg/dL (50-130) 05/19/18 03:30 HDL Cholesterol 53 mg/dL (40-59) 05/19/18 03:30 Cholesterol/HDL Ratio 2.35 % 05/19/18 03:30 HCG, Qual Negative (Negative) 05/19/18 03:30 Nutrition/Malnutrition Assess - Dietary Evaluation Nutrition/Malnutrition Findings: Nutrition Notes Start: 05/20/18 13:35 Freq: Status: Active Protocol: Document 05/20/18 13:36 TW (Rec: 05/20/18 14:17 TW [id number]) Co-Sign 05/20/18 13:36 OL Nutrition Notes Need for Assessment generated from: MD Order Initial or Follow up Brief Note Current Diagnosis COPD Diabetes Hypertension Heart Failure Current Diet NPO Subjective/Other Information MD consult for TF. Pt's power of energy attorney/ primary caregiver reports that pt can eat by mouth and had no indications for needing a TF. Per RN, MD was consulted for placement of NG tube for medication administration and TF consult was ordered by accident. RN states that pt is able to eat by mouth but may need [employer] evaluation because pt was choking on water given last night. Burn Absent Trauma Absent Nutrition Intervention Follow-Up By: 05/21/18 Additional Comments F/U for [employer] note/ diet advancement
[2018-05-20] MEDS: SODIUM CHLORIDE FLUSH SYRINGE 10 ML IV SCH ×2 (15:32→21:43)
[2018-05-20] MEDS ORDERED: TORADOL IV ONE (22:35)
[2018-05-21] MEDS: HumaLOG SUB-Q SCH ×4 (00:16→18:31)
[2018-05-21] MEDS: ATIVAN IV PRN ×3 (01:17→16:18)
[2018-05-21] MEDS: DUONEB *Not for PRN Use IH SCH ×4 (01:44→19:30)
[2018-05-21] MEDS: MORPHINE IV PRN ×3 (03:28→13:14)
[2018-05-21] MEDS: ZOFRAN IV PRN (03:29)
[2018-05-21 05:37] LABS: Hemoglobin 11.2 gm/dl (10.1-14.3); Mean Corpuscular HGB Conc 31 % (30-34); Mean Corpuscular Volume 93 fl (79-97); Platelet Count 154 K/mm3 (140-440); Red Blood Count 3.86 M/mm3 (3.65-5.03); Red Cell Distribution Width 18.2 % (13.2-15.2)
[2018-05-21] MEDS: LASIX IV SCH (05:37)
[2018-05-21] MEDS: SOLU-Medrol IV SCH ×3 (05:37→22:03)
[2018-05-21 06:06] LABS: BUN/Creatinine Ratio 29; Blood Urea Nitrogen 32 mg/dL (7-17); Calcium 9.6 mg/dL (8.4-10.2); Hemolysis Index 2
[2018-05-21] MEDS: PULMICORT IH SCH ×2 (08:04→19:25)
[2018-05-21] MEDS: BROVANA NEBU IH SCH ×2 (08:04→19:25)
[2018-05-21] MEDS: LEVAQUIN 750MG/150ML 750 MG/150 ML BAG IV SCH (09:07)
[2018-05-21] MEDS: SODIUM CHLORIDE FLUSH SYRINGE 10 ML IV SCH ×2 (09:08→22:03)
--- NOTE | 2018-05-21 09:44 | Progress Note ---
Assessment and Plan Acute respiratory failure Chronic systolic heart failure COPD on oxygen as an outpatient Dilated Nonischemic Cardiomyopathy LHC at [facility] in 2013: no significant CAD, EF 45% moderately decrease LVEF 20-25% by echo 08/2017 Chronic elevated troponin, nonspecific Recommend: Fluid/sodium restriction. Medical management for heart failure to include diuretics, afterload agents and beta blockers. Subjective Date of service: 05/21/18 Interval history: Patient is resting in bed comfortably on high flow oxygen. Family member is at bedside. Objective Vital Signs Temp Pulse Pulse Pulse Resp Resp BP 05/21/18 08:17 100 H 18 05/21/18 08:16 05/21/18 08:04 101 H 20 05/21/18 08:03 05/21/18 06:00 98 H 05/21/18 05:05 05/21/18 04:01 98 H 17 171/93 05/21/18 04:00 95 H 14 05/21/18 03:00 78 16 158/88 05/21/18 02:41 87 05/21/18 02:00 85 21 144/81 05/21/18 01:55 82 18 05/21/18 01:48 05/21/18 01:44 78 19 05/21/18 01:01 91 H 15 144/81 05/21/18 00:01 86 13 158/91 05/21/18 00:00 98.1 F 87 96 H 15 158/91 05/20/18 23:41 101 H 28 H 170/82 05/20/18 23:00 81 13 170/82 05/20/18 22:41 90 05/20/18 22:01 94 H 20 150/81 05/20/18 22:00 98 H 05/20/18 21:07 104 H 26 H 05/20/18 21:01 101 H 21 129/74 05/20/18 20:15 98 H 101 H 28 H 28 H 129/74 05/20/18 20:00 98.3 F 86 116 H 15 129/74 05/20/18 19:01 109 H 21 153/91 05/20/18 18:01 87 15 181/135 05/20/18 17:01 110 H 26 H 181/135 05/20/18 16:01 100 H 27 H 161/110 05/20/18 16:00 98.6 F 84 22 05/20/18 15:01 99 H 30 H 151/89 05/20/18 14:01 109 H 22 180/150 05/20/18 14:00 111 H 17 05/20/18 13:01 98 H 13 138/81 05/20/18 12:01 88 19 144/83 05/20/18 12:00 98 F 92 H 22 05/20/18 11:36 93 H 16 136/91 05/20/18 11:00 86 11 L 136/91 05/20/18 10:01 88 17 139/89 05/20/18 10:00 93 H Pulse Ox 05/21/18 08:17 05/21/18 08:16 95 05/21/18 08:04 05/21/18 08:03 96 05/21/18 06:00 05/21/18 05:05 94 05/21/18 04:01 95 05/21/18 04:00 94 05/21/18 03:00 97 05/21/18 02:41 05/21/18 02:00 93 05/21/18 01:55 05/21/18 01:48 97 05/21/18 01:44 05/21/18 01:01 97 05/21/18 00:01 98 05/21/18 00:00 98 05/20/18 23:41 98 05/20/18 23:00 98 05/20/18 22:41 05/20/18 22:01 97 05/20/18 22:00 05/20/18 21:07 05/20/18 21:01 98 05/20/18 20:15 98 05/20/18 20:00 97 05/20/18 19:01 95 05/20/18 18:01 99 05/20/18 17:01 05/20/18 16:01 05/20/18 16:00 97 05/20/18 15:01 05/20/18 14:01 88 05/20/18 14:00 05/20/18 13:01 90 05/20/18 12:01 90 05/20/18 12:00 95 05/20/18 11:36 98 05/20/18 11:00 97 05/20/18 10:01 94 05/20/18 10:00 - Physical Examination General: No Apparent Distress HEENT: Positive: PERRL Cardiac: Positive: Reg Rate and Rhythm Lungs: Positive: Decreased Breath Sounds - Labs and Meds CBC 05/21/18 Range/Units 05:03 WBC 9.0 (4.5-11.0) K/mm3 RBC 3.86 (3.65-5.03) M/mm3 Hgb 11.2 (10.1-14.3) gm/dl Hct 36.0 (30.3-42.9) % Plt Count 154 (140-440) K/mm3 Comprehensive Metabolic Panel 05/21/18 Range/Units 05:03 Sodium 152 H (137-145) mmol/L Potassium 4.6 (3.6-5.0) mmol/L Chloride 101.2 (98-107) mmol/L Carbon Dioxide 39 H (22-30) mmol/L BUN 32 H (7-17) mg/dL Creatinine 1.1 (0.7-1.2) mg/dL Glucose 162 H (65-100) mg/dL Calcium 9.6 (8.4-10.2) mg/dL
--- NOTE | 2018-05-21 10:13 | Progress Note ---
Assessment and Plan Assessment and plan: Acute on chronic resp failure with hypoxia, hypercapnea. admitted to [facility] feels better pulm following COPD exacerbation. solumedrol BIPAP Acute on chronic systolic CHF. Continue lasix iv Cardiology following Diabetes mellitus type 2. fingerstick glucose q ac and hs Hypelipidemia hypertension Sleep apnea Schizophrenia Agitation on and off haldol prn Full code status. I discussed with patient and sister, Gladys Yates at bedside. sister is POA abd says patient is Full code History Interval history: Shortness of breath On BIPAP Hospitalist Physical - Physical exam Narrative exam: GEN: Not in acute distress, Obese HEENT: Normocephalic, atraumatic, Neck: supple, No JVD Lungs: Decreased breath sounds bilat, bilat rhonchi, crackles Heart:S1 and S2 regular, no murmurs, rubs or gallop, Abd:soft, non tender, non distended, normal bowel sounds Ext: No edema, no clubbing or cyanosis Neuro: Lethargic, follows commands, moves all ext - Constitutional Vitals: Temp Pulse Resp BP Pulse Ox 98.1 F 100 H 18 171/93 95 05/21/18 00:00 05/21/18 08:17 05/21/18 08:17 05/21/18 04:01 05/21/18 08:16 General appearance: Present: other (on Bipap therapy) Results - Labs CBC & Chem 7: 05/22/18 05:06 05/22/18 05:06 Labs: Laboratory Last Values WBC 9.0 K/mm3 (4.5-11.0) 05/21/18 05:03 RBC 3.86 M/mm3 (3.65-5.03) 05/21/18 05:03 Hgb 11.2 gm/dl (10.1-14.3) 05/21/18 05:03 Hct 36.0 % (30.3-42.9) 05/21/18 05:03 MCV 93 fl (79-97) 05/21/18 05:03 MCH 29 pg (28-32) 05/21/18 05:03 MCHC 31 % (30-34) 05/21/18 05:03 RDW 18.2 % (13.2-15.2) H 05/21/18 05:03 Plt Count 154 K/mm3 (140-440) 05/21/18 05:03 Lymph % (Auto) 14.6 % (13.4-35.0) 05/20/18 05:06 [place] % (Auto) 5.4 % (0.0-7.3) 05/20/18 05:06 Eos % (Auto) 0.0 % (0.0-4.3) 05/20/18 05:06 Baso % (Auto) 0.1 % (0.0-1.8) 05/20/18 05:06 Lymph # 0.9 K/mm3 (1.2-5.4) L 05/20/18 05:06 [place] # 0.4 K/mm3 (0.0-0.8) 05/20/18 05:06 Eos # 0.0 K/mm3 (0.0-0.4) 05/20/18 05:06 Baso # 0.0 K/mm3 (0.0-0.1) 05/20/18 05:06 Seg Neutrophils % 79.9 % (40.0-70.0) H 05/20/18 05:06 Seg Neutrophils # 5.2 K/mm3 (1.8-7.7) 05/20/18 05:06 PT 14.1 Sec. (12.2-14.9) 05/19/18 03:30 INR 1.05 (0.87-1.13) 05/19/18 03:30 APTT 26.8 Sec. (24.2-36.6) 05/19/18 03:30 POC ABG pH 7.377 (7.35-7.45) 05/21/18 05:57 POC ABG pCO2 73.2 (35-45) H 05/21/18 05:57 POC ABG pO2 64 (80-105) L 05/21/18 05:57 POC ABG HCO3 43.0 05/21/18 05:57 POC ABG Total CO2 45 05/21/18 05:57 POC ABG O2 Sat 90 05/21/18 05:57 POC ABG Base Excess 18 05/21/18 05:57 FiO2 80 % 05/21/18 05:57 Sodium 152 mmol/L (137-145) H 05/21/18 05:03 Potassium 4.6 mmol/L (3.6-5.0) 05/21/18 05:03 Chloride 101.2 mmol/L (98-107) 05/21/18 05:03 Carbon Dioxide 39 mmol/L (22-30) H 05/21/18 05:03 Anion Gap 16 mmol/L 05/21/18 05:03 BUN 32 mg/dL (7-17) H 05/21/18 05:03 Creatinine 1.1 mg/dL (0.7-1.2) 05/21/18 05:03 Estimated GFR > 60 ml/min 05/21/18 05:03 BUN/Creatinine Ratio 29 % 05/21/18 05:03 Glucose 162 mg/dL (65-100) H 05/21/18 05:03 POC Glucose 175 (70-105) H 05/21/18 05:28 Calcium 9.6 mg/dL (8.4-10.2) 05/21/18 05:03 Total Creatine Kinase 85 units/L (30-135) 05/19/18 13:56 CK-MB (CK-2) 6.1 ng/mL (0.0-4.0) H 05/19/18 13:56 CK-MB (CK-2) Rel Index 7.1 (0-4) H 05/19/18 13:56 Troponin T 0.138 ng/mL (0.00-0.029) H* D 05/19/18 13:56 NT-Pro-B Natriuret Pep 4192 pg/mL (0-450) H 05/19/18 03:41 Triglycerides 81 mg/dL (2-149) 05/19/18 03:30 Cholesterol 125 mg/dL (50-199) 05/19/18 03:30 LDL Cholesterol Direct 58 mg/dL (50-130) 05/19/18 03:30 HDL Cholesterol 53 mg/dL (40-59) 05/19/18 03:30 Cholesterol/HDL Ratio 2.35 % 05/19/18 03:30 HCG, Qual Negative (Negative) 05/19/18 03:30 Nutrition/Malnutrition Assess - Dietary Evaluation Nutrition/Malnutrition Findings: Nutrition Notes Start: 05/20/18 13 :35 Freq: Status: Active Protocol: Document 05/21/18 09:14 TW (Rec: 05/21/18 10:02 TW [id number]) Co-Sign 02/01/19 09:14 NHALL Nutrition Notes Initial or Follow up Brief Note Current Diagnosis COPD Diabetes Hypertension Heart Failure Respiratory Failure Current Diet CHO consistent Subjective/Other Information F/U for diet advancement. Per RN pt is able to eat by mouth without signs of aspiration. RN states that they have charity feeding pt applesauce. RN called MD to discuss diet order change to CHO consistent . Burn Absent Trauma Absent Nutrition Intervention Follow-Up By: 05/24/18 Additional Comments F/U for PO intakes and need for assessment
[2018-05-21] MEDS ORDERED: MIRALAX 3350 PO PRN (10:23)
[2018-05-21] MEDS ORDERED: COREG PO SCH (11:00)
--- NOTE | 2018-05-21 11:06 | Progress Note ---
Assessment and Plan -Acute and chronic hypercapnic respiratory failure -Acute hypoxemic respiratory failure -h/o trachesotomy -AE-COPD -Hypernatremia Metabolic alkalosis -CHF exacerbation -NSTEMI -Morbid obesity -Sleep apnea -Schizophrenia Supplemental oxygen to keep O2 sats 88-90% -Oxygen restrictive strategies -ABG and CXR prn -VTE prophylaxis -Bronchodilators -NIPPV QHS and prn -Limit narcotics and benzodiazepines -Cardioprotective measures -Heart failure measures -Place small bowel feeding tube to resume chronic home medications -Free water to treat hypernatremia -Limit diuretic therapy as she appears to have contraction alkalosis as evidenced by hypernatremia and metabolic alkalosis -Short steroid taper -Analgesia -Nutritional support -PT/OT to evaluate and treat -Life style modifications and weight loss strategies on discharge -ABG in the morning Discussed extensively with RT and RN CODE STATUS: FULL CONDITION: CRITICAL PROGNOSIS: GUARDED The high probability of a clinically significant, sudden or life threatening deterioration of the [Pulmonary,cardiac & neurologic] system(s) required my full and direct attention, intervention and personal management. The aggregate critical care time was [35] minutes. This time is in addition to time spent performing reported procedures but includes the following: [x] Data Review and interpretation [x] Patient assessment and monitoring of vital signs [x] Documentation Subjective Date of service: 05/21/18 Interval history: Follow up for :Acute on chronic hypercapnic, hypoxemic resp failure, AE-COPD, Acute encephaloapthy, Morbid obesity with sleep apnea Seen and examined. 24 hour events reviewed with RN. De La Vega, labs, medications, chart and imaging reviewed Patient is encephaloapthic, received morphine for back pain, sister at the bedside Currently high flow vapotherm, 35L 60% with oxygen saturations between 90-93% Somnolent but will arouse with stimulation. No documented fevers, no vomiting, Objective - Exam Narrative Exam: GEN: Not in acute distress, Obese, on Venturi mask at 35% Obese, in restrains, healed tracheal stoma scar HEENT: Normocephalic, atraumatic, Neck: supple, No JVD, no adenopathy Lungs: Decreased breath sounds bilaterally, bilateral rhonchi, crackles Heart:S1 and S2 regular, no murmurs, rubs or gallop, Abd:soft, non tender, non distended, normal bowel sounds Ext: No edema, no clubbing or cyanosis Neuro: Lethargic, moves all extremities, but not following commands Vital Signs - 12hr 05/20/18 05/21/18 05/21/18 23:41 00:00 00:01 Temperature 98.1 F Pulse Rate 101 H 87 86 Pulse Rate [ Anterior Bilateral Upper Lobe] Pulse Rate [ 96 H From Monitor] Respiratory 28 H 15 13 Rate Respiratory Rate [Anterior Bilateral Upper Lobe] Blood Pressure 170/82 158/91 158/91 O2 Sat by Pulse 98 98 98 Oximetry 05/21/18 05/21/18 05/21/18 01:01 01:44 01:48 Temperature Pulse Rate 91 H Pulse Rate [ 78 Anterior Bilateral Upper Lobe] Pulse Rate [ From Monitor] Respiratory 15 Rate Respiratory 19 Rate [Anterior Bilateral Upper Lobe] Blood Pressure 144/81 O2 Sat by Pulse 97 97 Oximetry 05/21/18 05/21/18 05/21/18 01:55 02:00 02:41 Temperature Pulse Rate 85 87 Pulse Rate [ 82 Anterior Bilateral Upper Lobe] Pulse Rate [ From Monitor] Respiratory 21 Rate Respiratory 18 Rate [Anterior Bilateral Upper Lobe] Blood Pressure 144/81 O2 Sat by Pulse 93 Oximetry 05/21/18 05/21/18 05/21/18 03:00 04:00 04:01 Temperature Pulse Rate 78 98 H Pulse Rate [ Anterior Bilateral Upper Lobe] Pulse Rate [ 95 H From Monitor] Respiratory 16 14 17 Rate Respiratory Rate [Anterior Bilateral Upper Lobe] Blood Pressure 158/88 171/93 O2 Sat by Pulse 97 94 95 Oximetry 05/21/18 05/21/18 05/21/18 05:01 05:05 06:00 Temperature Pulse Rate 96 H 98 H Pulse Rate [ Anterior Bilateral Upper Lobe] Pulse Rate [ From Monitor] Respiratory 19 Rate Respiratory Rate [Anterior Bilateral Upper Lobe] Blood Pressure 156/89 O2 Sat by Pulse 89 94 Oximetry 05/21/18 05/21/18 05/21/18 06:01 07:00 08:00 Temperature 98.8 F Pulse Rate 98 H 83 Pulse Rate [ Anterior Bilateral Upper Lobe] Pulse Rate [ 105 H From Monitor] Respiratory 19 13 23 Rate Respiratory Rate [Anterior Bilateral Upper Lobe] Blood Pressure 153/92 155/86 O2 Sat by Pulse 88 100 95 Oximetry 05/21/18 05/21/18 05/21/18 08:01 08:03 08:04 Temperature Pulse Rate 104 H Pulse Rate [ 101 H Anterior Bilateral Upper Lobe] Pulse Rate [ From Monitor] Respiratory 18 Rate Respiratory 20 Rate [Anterior Bilateral Upper Lobe] Blood Pressure 155/86 O2 Sat by Pulse 93 96 Oximetry 05/21/18 05/21/18 05/21/18 08:16 08:17 09:01 Temperature Pulse Rate 95 H Pulse Rate [ 100 H Anterior Bilateral Upper Lobe] Pulse Rate [ From Monitor] Respiratory 17 Rate Respiratory 18 Rate [Anterior Bilateral Upper Lobe] Blood Pressure 168/71 O2 Sat by Pulse 95 92 Oximetry 05/21/18 05/21/18 10:00 10:01 Temperature Pulse Rate 105 H 91 H Pulse Rate [ Anterior Bilateral Upper Lobe] Pulse Rate [ From Monitor] Respiratory 20 Rate Respiratory Rate [Anterior Bilateral Upper Lobe] Blood Pressure 168/71 O2 Sat by Pulse 93 Oximetry CBC and BMP: 05/21/18 05:03 05/21/18 05:03 ABG, PT/INR, D-dimer: ABG POC ABG pH 7.377 (7.35-7.45) 05/21/18 05:57 POC ABG pCO2 73.2 (35-45) H 05/21/18 05:57 POC ABG pO2 64 (80-105) L 05/21/18 05:57 POC ABG HCO3 43.0 05/21/18 05:57 POC ABG Total CO2 45 05/21/18 05:57 POC ABG O2 Sat 90 05/21/18 05:57 PT/INR, D-dimer PT 14.1 Sec. (12.2-14.9) 05/19/18 03:30 INR 1.05 (0.87-1.13) 05/19/18 03:30 Abnormal lab findings: Abnormal Labs 05/19/18 05/19/18 05/19/18 03:15 03:30 03:30 RDW 18.2 H Plt Count 126 L Tillman % (Auto) 14.0 H Lymph # Tillman # 1.1 H Seg Neutrophils % POC ABG pH 7.220 L POC ABG pCO2 94.1 H POC ABG pO2 66 L Sodium Carbon Dioxide 35 H BUN Glucose 114 H POC Glucose CK-MB (CK-2) 5.8 H CK-MB (CK-2) Rel Index 6.1 H Troponin T 0.233 H* NT-Pro-B Natriuret Pep 05/19/18 05/19/18 05/19/18 03:41 05:00 06:39 RDW Plt Count [place] % (Auto) Lymph # [place]man # Seg Neutrophils % POC ABG pH 7.244 L POC ABG pCO2 85.3 H POC ABG pO2 Sodium Carbon Dioxide BUN Glucose POC Glucose 112 H CK-MB (CK-2) CK-MB (CK-2) Rel Index Troponin T NT-Pro-B Natriuret Pep 4192 H 05/19/18 05/19/18 05/19/18 06:44 10:12 12:04 RDW Plt Count [place] % (Auto) Lymph # [place]man # Seg Neutrophils % POC ABG pH 7.244 L POC ABG pCO2 85.2 H POC ABG pO2 62 L Sodium Carbon Dioxide BUN Glucose POC Glucose 152 H CK-MB (CK-2) 5.8 H CK-MB (CK-2) Rel Index 6.9 H Troponin T 0.197 H* NT-Pro-B Natriuret Pep 05/19/18 05/19/18 05/19/18 13:56 18:26 19:55 RDW Plt Count [place] % (Auto) Lymph # [place] # Seg Neutrophils % POC ABG pH 7.271 L POC ABG pCO2 84.6 H POC ABG pO2 66 L Sodium Carbon Dioxide BUN Glucose POC Glucose 170 H CK-MB (CK-2) 6.1 H CK-MB (CK-2) Rel Index 7.1 H Troponin T 0.138 H* D NT-Pro-B Natriuret Pep 05/19/18 05/20/18 05/20/18 23:31 04:53 05:06 RDW 18.1 H Plt Count [place] % (Auto) Lymph # 0.9 L [place] # Seg Neutrophils % 79.9 H POC ABG pH POC ABG pCO2 POC ABG pO2 Sodium Carbon Dioxide BUN Glucose POC Glucose 168 H 148 H CK-MB (CK-2) CK-MB (CK-2) Rel Index Troponin T NT-Pro-B Natriuret Pep 05/20/18 05/20/18 05/20/18 05:06 11:38 12:13 RDW Plt Count [place] % (Auto) Lymph # [place]man # Seg Neutrophils % POC ABG pH 7.303 L POC ABG pCO2 90.0 H POC ABG pO2 Sodium 147 H Carbon Dioxide 35 H BUN 18 H Glucose 171 H POC Glucose 183 H CK-MB (CK-2) CK-MB (CK-2) Rel Index Troponin T NT-Pro-B Natriuret Pep 05/20/18 05/21/18 05/21/18 18:07 00:17 05:03 RDW 18.2 H Plt Count [place] % (Auto) Lymph # [place]man # Seg Neutrophils % POC ABG pH POC ABG pCO2 POC ABG pO2 Sodium Carbon Dioxide BUN Glucose POC Glucose 112 H 133 H CK-MB (CK-2) CK-MB (CK-2) Rel Index Troponin T NT-Pro-B Natriuret Pep 05/21/18 05/21/18 05/21/18 05:03 05:28 05:57 RDW Plt Count [place] % (Auto) Lymph # [place]man # Seg Neutrophils % POC ABG pH POC ABG pCO2 73.2 H POC ABG pO2 64 L Sodium 152 H Carbon Dioxide 39 H BUN 32 H Glucose 162 H POC Glucose 175 H CK-MB (CK-2) CK-MB (CK-2) Rel Index Troponin T NT-Pro-B Natriuret Pep
[2018-05-21] MEDS: ALDACTONE PO SCH (12:02)
[2018-05-21] MEDS: APRESOLINE PO SCH ×2 (12:04→22:03)
[2018-05-21] MEDS: COZAAR PO SCH (12:06)
[2018-05-21] MEDS: ISORDIL TITRADOSE PO SCH ×2 (12:06→22:03)
[2018-05-21] MEDS: PEPCID PO SCH (12:11)
[2018-05-21] MEDS: ECOTRIN PO SCH (12:11)
[2018-05-21] MEDS: COLACE PO SCH ×2 (12:11→22:05)
[2018-05-21] MEDS: COREG PO SCH ×2 (12:11→22:04)
[2018-05-21] MEDS: HALDOL IM PRN (12:13)
[2018-05-21] MEDS ORDERED: PULMICORT IH SCH (22:00)
[2018-05-21] MEDS: DOLOPHINE PO SCH (22:03)
[2018-05-21] MEDS: SINGULAIR PO SCH (22:04)
[2018-05-21] MEDS: SENOKOT PO SCH (22:04)
[2018-05-21] MEDS: FLONASE NS SCH (22:05)
[2018-05-21] MEDS: DESYREL PO SCH (22:05)
[2018-05-22] MEDS: DUONEB *Not for PRN Use IH SCH ×4 (02:11→19:37)
[2018-05-22] MEDS: HumaLOG SUB-Q SCH ×4 (03:04→17:19)
[2018-05-22] MEDS: MORPHINE IV PRN ×3 (03:05→15:20)
[2018-05-22 05:51] LABS: Mean Corpuscular HGB Conc 30 % (30-34); Mean Corpuscular Volume 96 fl (79-97); Platelet Count 172 K/mm3 (140-440); Red Blood Count 4.15 M/mm3 (3.65-5.03)
[2018-05-22 05:58] LABS: BUN/Creatinine Ratio 39; Blood Urea Nitrogen 43 mg/dL (7-17); Hemolysis Index 29
[2018-05-22 06:12] LABS: Hematocrit 39.7 % (30.3-42.9)
[2018-05-22] MEDS: SOLU-Medrol IV SCH ×3 (06:17→22:06)
[2018-05-22] MEDS: APRESOLINE PO SCH ×3 (06:18→21:57)
[2018-05-22] MEDS: ISORDIL TITRADOSE PO SCH ×3 (06:19→21:57)
--- NOTE | 2018-05-22 09:05 | Progress Note ---
Assessment and Plan Assessment and plan: Acute on chronic resp failure with hypoxia, hypercapnea. admitted to [facility] feels better pulm following COPD exacerbation. solumedrol BIPAP Acute on chronic systolic CHF. Continue lasix iv Cardiology following Diabetes mellitus type 2. fingerstick glucose q ac and hs Hypelipidemia hypertension. Monitor BP Sleep apnea Schizophrenia Agitation on and off haldol prn Full code status. I discussed with patient and sister, Gladys Yates at bedside. Sister is POA and says patient is Full code History Interval history: Shortness of breath improved On BIPAP Hospitalist Physical - Physical exam Narrative exam: GEN: Not in acute distress, Obese HEENT: Normocephalic, atraumatic, Neck: supple, No JVD Lungs: Decreased breath sounds bilat, bilat rhonchi, crackles Heart:S1 and S2 regular, no murmurs, rubs or gallop, Abd:soft, non tender, non distended, normal bowel sounds Ext: No edema, no clubbing or cyanosis Neuro: Lethargic, follows commands, moves all ext - Constitutional Vitals: Temp Pulse Resp BP Pulse Ox 97.5 F L 93 H 16 110/49 91 05/22/18 04:00 05/22/18 06:19 05/22/18 05:12 05/22/18 06:19 05/22/18 05:12 General appearance: Present: other (on Bipap therapy) Results - Labs CBC & Chem 7: 05/22/18 05:06 05/22/18 05:06 Labs: Laboratory Last Values WBC 8.8 K/mm3 (4.5-11.0) 05/22/18 05:06 RBC 4.15 M/mm3 (3.65-5.03) 05/22/18 05:06 Hgb 12.0 gm/dl (10.1-14.3) 05/22/18 05:06 Hct 39.7 % (30.3-42.9) 05/22/18 05:06 MCV 96 fl (79-97) 05/22/18 05:06 MCH 29 pg (28-32) 05/22/18 05:06 MCHC 30 % (30-34) 05/22/18 05:06 RDW 19.0 % (13.2-15.2) H 05/22/18 05:06 Plt Count 172 K/mm3 (140-440) 05/22/18 05:06 Lymph % (Auto) 14.6 % (13.4-35.0) 05/20/18 05:06 Luce % (Auto) 5.4 % (0.0-7.3) 05/20/18 05:06 Eos % (Auto) 0.0 % (0.0-4.3) 05/20/18 05:06 Baso % (Auto) 0.1 % (0.0-1.8) 05/20/18 05:06 Lymph # 0.9 K/mm3 (1.2-5.4) L 05/20/18 05:06 Luce # 0.4 K/mm3 (0.0-0.8) 05/20/18 05:06 Eos # 0.0 K/mm3 (0.0-0.4) 05/20/18 05:06 Baso # 0.0 K/mm3 (0.0-0.1) 05/20/18 05:06 Seg Neutrophils % 79.9 % (40.0-70.0) H 05/20/18 05:06 Seg Neutrophils # 5.2 K/mm3 (1.8-7.7) 05/20/18 05:06 PT 14.1 Sec. (12.2-14.9) 05/19/18 03:30 INR 1.05 (0.87-1.13) 05/19/18 03:30 APTT 26.8 Sec. (24.2-36.6) 05/19/18 03:30 POC ABG pH 7.377 (7.35-7.45) 05/21/18 05:57 POC ABG pCO2 73.2 (35-45) H 05/21/18 05:57 POC ABG pO2 64 (80-105) L 05/21/18 05:57 POC ABG HCO3 43.0 05/21/18 05:57 POC ABG Total CO2 45 05/21/18 05:57 POC ABG O2 Sat 90 05/21/18 05:57 POC ABG Base Excess 18 05/21/18 05:57 FiO2 80 % 05/21/18 05:57 Sodium 151 mmol/L (137-145) H 05/22/18 05:06 Potassium 5.0 mmol/L (3.6-5.0) 05/22/18 05:06 Chloride 103.1 mmol/L (98-107) 05/22/18 05:06 Carbon Dioxide 37 mmol/L (22-30) H 05/22/18 05:06 Anion Gap 16 mmol/L 05/22/18 05:06 BUN 43 mg/dL (7-17) H 05/22/18 05:06 Creatinine 1.1 mg/dL (0.7-1.2) 05/22/18 05:06 Estimated GFR > 60 ml/min 05/22/18 05:06 BUN/Creatinine Ratio 39 % 05/22/18 05:06 Glucose 267 mg/dL (65-100) H 05/22/18 05:06 POC Glucose 283 (70-105) H 05/22/18 05:20 Calcium 9.0 mg/dL (8.4-10.2) 05/22/18 05:06 Total Creatine Kinase 85 units/L (30-135) 05/19/18 13:56 CK-MB (CK-2) 6.1 ng/mL (0.0-4.0) H 05/19/18 13:56 CK-MB (CK-2) Rel Index 7.1 (0-4) H 05/19/18 13:56 Troponin T 0.138 ng/mL (0.00-0.029) H* D 05/19/18 13:56 NT-Pro-B Natriuret Pep 4192 pg/mL (0-450) H 05/19/18 03:41 Triglycerides 81 mg/dL (2-149) 05/19/18 03:30 Cholesterol 125 mg/dL (50-199) 05/19/18 03:30 LDL Cholesterol Direct 58 mg/dL (50-130) 05/19/18 03:30 HDL Cholesterol 53 mg/dL (40-59) 05/19/18 03:30 Cholesterol/HDL Ratio 2.35 % 05/19/18 03:30 HCG, Qual Negative (Negative) 05/19/18 03:30 Nutrition/Malnutrition Assess - Dietary Evaluation Nutrition/Malnutrition Findings: Nutrition Notes Start: 05/20/18 13:35 Freq: Status: Active Protocol: Document 05/21/18 09:14 TW (Rec: 05/21/18 10:02 TW [id number]) Co-Sign 05/21/18 09:14 NHALL Nutrition Notes Initial or Follow up Brief Note Current Diagnosis COPD Diabetes Hypertension Heart Failure Respiratory Failure Current Diet CHO consistent Subjective/Other Information F/U for diet advancement. Per RN pt is able to eat by mouth without signs of aspiration. RN states that they have charity feeding pt applesauce. RN called MD to discuss diet order change to CHO consistent . Burn Absent Trauma Absent Nutrition Intervention Follow-Up By: 05/24/18 Additional Comments F/U for PO intakes and need for assessment
--- NOTE | 2018-05-22 09:32 | Progress Note ---
Assessment and Plan - Patient Problems (1) COPD exacerbation Current Visit: Yes Status: Acute (2) Morbid obesity with BMI of 45.0-49.9, adult Current Visit: Yes Status: Acute (3) Sleep apnea syndrome Current Visit: Yes Status: Acute (4) CHF (congestive heart failure) Current Visit: Yes Status: Chronic Qualifiers: Subjective Date of service: 05/22/18 Principal diagnosis: Acute on chronic hypercapnic, hypoxemic resp failure, AE- COPD, Interval history: SOMNULENT,,,,NO C\O Objective Vital Signs Temp Pulse Pulse Pulse Resp Resp BP 05/22/18 06:19 93 H 110/49 05/22/18 06:18 93 H 110/49 05/22/18 06:00 95 H 05/22/18 05:12 93 H 16 110/49 05/22/18 05:01 98 H 13 110/49 05/22/18 04:01 93 H 17 110/49 05/22/18 04:00 97.5 F L 94 H 14 05/22/18 03:01 89 18 137/68 05/22/18 02:26 94 H 27 H 05/22/18 02:11 92 H 27 H 05/22/18 02:01 92 H 19 137/68 05/22/18 02:00 94 H 05/22/18 01:01 85 18 137/68 05/22/18 00:00 98.1 F 93 H 95 H 19 137/68 05/21/18 23:01 88 17 136/74 05/21/18 22:04 87 136/74 05/21/18 22:03 87 136/74 05/21/18 22:01 95 H 17 136/74 05/21/18 22:00 90 05/21/18 21:01 136/74 05/21/18 20:00 98.9 F 92 H 24 136/74 05/21/18 19:40 94 H 26 H 05/21/18 19:26 05/21/18 19:25 92 H 26 H 05/21/18 19:01 95 H 21 156/79 05/21/18 18:01 98 H 29 H 156/79 05/21/18 18:00 101 H 05/21/18 17:11 87 18 156/79 05/21/18 17:01 86 23 156/79 05/21/18 16:00 98.6 F 96 H 102 H 21 158/78 05/21/18 15:01 105 H 21 158/78 05/21/18 14:01 98 H 19 158/78 05/21/18 14:00 102 H 05/21/18 13:59 96 H 18 05/21/18 13:50 102 H 20 05/21/18 13:01 105 H 25 H 158/78 05/21/18 12:02 100 H 158/78 05/21/18 12:01 102 H 18 158/78 05/21/18 12:00 98.7 F 104 H 21 05/21/18 11:01 107 H 20 168/71 05/21/18 10:01 91 H 20 168/71 05/21/18 10:00 105 H Pulse Ox 05/22/18 06:19 05/22/18 06:18 05/22/18 06:00 05/22/18 05:12 91 05/22/18 05:01 97 05/22/18 04:01 93 05/22/18 04:00 94 05/22/18 03:01 94 05/22/18 02:26 05/22/18 02:11 05/22/18 02:01 96 05/22/18 02:00 05/22/18 01:01 95 05/22/18 00:00 80 L 05/21/18 23:01 96 05/21/18 22:04 05/21/18 22:03 05/21/18 22:01 93 05/21/18 22:00 05/21/18 21:01 93 05/21/18 20:00 97 05/21/18 19:40 05/21/18 19:26 94 05/21/18 19:25 05/21/18 19:01 96 05/21/18 18:01 92 05/21/18 18:00 05/21/18 17:11 97 05/21/18 17:01 93 05/21/18 16:00 92 05/21/18 15:01 85 05/21/18 14:01 98 05/21/18 14:00 05/21/18 13:59 05/21/18 13:50 05/21/18 13:01 96 05/21/18 12:02 02/01/19 12:01 92 05/21/18 12:00 95 05/21/18 11:01 91 05/21/18 10:01 93 05/21/18 10:00 - Physical Examination General: No Apparent Distress HEENT: Positive: PERRL Neck: Positive: neck supple Cardiac: Positive: Reg Rate and Rhythm Lungs: Positive: clear to auscultation - Labs and Meds CBC 05/22/18 Range/Units 05:06 WBC 8.8 (4.5-11.0) K/mm3 RBC 4.15 (3.65-5.03) M/mm3 Hgb 12.0 (10.1-14.3) gm/dl Hct 39.7 (30.3-42.9) % Plt Count 172 (140-440) K/mm3 Comprehensive Metabolic Panel 05/22/18 Range/Units 05:06 Sodium 151 H (137-145) mmol/L Potassium 5.0 (3.6-5.0) mmol/L Chloride 103.1 (98-107) mmol/L Carbon Dioxide 37 H (22-30) mmol/L BUN 43 H (7-17) mg/dL Creatinine 1.1 (0.7-1.2) mg/dL Glucose 267 H (65-100) mg/dL Calcium 9.0 (8.4-10.2) mg/dL - Imaging and Cardiology EKG: image reviewed - Allied health notes Allied health notes reviewed: RT
[2018-05-22] MEDS: PULMICORT IH SCH ×2 (09:41→19:37)
[2018-05-22] MEDS: BROVANA NEBU IH SCH ×2 (09:41→19:37)
[2018-05-22] MEDS: FLONASE NS SCH ×2 (10:34→21:58)
[2018-05-22] MEDS: DOLOPHINE PO SCH ×2 (10:35→21:52)
[2018-05-22] MEDS: LEVAQUIN 750MG/150ML 750 MG/150 ML BAG IV SCH (10:35)
[2018-05-22] MEDS: ALDACTONE PO SCH (10:35)
[2018-05-22] MEDS: COZAAR PO SCH (10:36)
[2018-05-22] MEDS: ECOTRIN PO SCH (10:36)
[2018-05-22] MEDS: COLACE PO SCH ×2 (10:37→21:52)
[2018-05-22] MEDS: COREG PO SCH ×2 (10:37→21:52)
[2018-05-22] MEDS: CLARITIN PO SCH (10:37)
[2018-05-22] MEDS: PEPCID PO SCH (10:37)
[2018-05-22] MEDS: SODIUM CHLORIDE FLUSH SYRINGE 10 ML IV SCH (10:39)
[2018-05-22] MEDS: ATIVAN IV PRN (13:42)
--- NOTE | 2018-05-22 21:35 | Progress Note ---
Assessment and Plan Patient sleeping at this time on BIPAP 16/8, rate 20, FIO2 60%.O2 saturation 97%. Patient morbidly Obese. No acute respiratory distress on BIPAP. - Patient Problems (1) COPD exacerbation Current Visit: Yes Status: Acute Plan to address problem: BIPAP 16/8, rate 20, FIO2 60% Albuterol/atrovent aerosol treatments q 6 hours. Continue I/V solumedrol. Continue Levaquin. S/C Lovenox or SCDs Continue famotidine. (2) Pulmonary infiltrate Current Visit: Yes Status: Acute Plan to address problem: Continue Levaquin. (3) Morbid obesity with BMI of 45.0-49.9, adult Current Visit: Yes Status: Acute Plan to address problem: Cosult powdered sugar supervisor for weight reduction diet. (4) Sleep apnea syndrome Current Visit: Yes Status: Acute Plan to address problem: Patient is on BIPAP 16/8, rate 20, FIO2 60%. (5) CHF (congestive heart failure) Current Visit: Yes Status: Chronic Qualifiers: Plan to address problem: Management as per primary care and cardiology. (6) Hypertension Current Visit: Yes Status: Chronic Qualifiers: Plan to address problem: Mangement as per primary care. (7) T2DM (type 2 diabetes mellitus) Current Visit: Yes Status: Chronic Plan to address problem: Management as per primary care. (8) Acute and chronic respiratory failure with hypercapnia Current Visit: No Status: Acute Plan to address problem: BIPAP 16/8, rate 20, FIO2 60% Albuterol/atrovent aerosol treatments q 6 hours. Continue I/V solumedrol. Continue Levaquin. S/C Lovenox or SCDs Continue famotidine (9) Acute kidney injury Current Visit: No Status: Acute Plan to address problem: Management as per nephrology. (10) GERD (gastroesophageal reflux disease) Current Visit: No Status: Acute Qualifiers: Esophagitis presence: without esophagitis Qualified Code(s): K21.9 - Gastro-esophageal reflux disease without esophagitis Plan to address problem: Patient is on famotidine. (11) Sepsis Current Visit: No Status: Acute Plan to address problem: Continue Levaquin. Subjective Date of service: 05/22/18 Principal diagnosis: Acute on chronic hypercapnic, hypoxemic resp failure, AE- COPD, Interval history: Patient sleeping at this time on BIPAP 16/8, rate 20, FIO2 60%.O2 saturation 97%. Patient morbidly Obese. No acute respiratory distress on BIPAP. Objective Vital Signs - 12hr 05/22/18 05/22/18 05/22/18 09:41 10:00 10:01 Temperature Pulse Rate 95 H 81 Pulse Rate [ 86 Anterior Bilateral Upper Lobe] Pulse Rate [ From Monitor] Respiratory 11 L Rate Respiratory 16 Rate [Anterior Bilateral Upper Lobe] Blood Pressure 94/52 O2 Sat by Pulse 95 Oximetry 05/22/18 05/22/18 05/22/18 10:11 10:18 10:35 Temperature Pulse Rate 84 Pulse Rate [ 83 Anterior Bilateral Upper Lobe] Pulse Rate [ From Monitor] Respiratory Rate Respiratory 26 H Rate [Anterior Bilateral Upper Lobe] Blood Pressure 104/62 O2 Sat by Pulse 95 Oximetry 05/22/18 05/22/18 05/22/18 10:36 10:37 11:01 Temperature Pulse Rate 84 84 82 Pulse Rate [ Anterior Bilateral Upper Lobe] Pulse Rate [ From Monitor] Respiratory 12 Rate Respiratory Rate [Anterior Bilateral Upper Lobe] Blood Pressure 104/62 104/62 94/52 O2 Sat by Pulse 87 Oximetry 05/22/18 05/22/18 05/22/18 12:00 13:01 14:00 Temperature 97.8 F Pulse Rate 76 74 92 H Pulse Rate [ Anterior Bilateral Upper Lobe] Pulse Rate [ 94 H From Monitor] Respiratory 14 13 Rate Respiratory Rate [Anterior Bilateral Upper Lobe] Blood Pressure 98/61 98/61 O2 Sat by Pulse 94 96 Oximetry 05/22/18 05/22/18 05/22/18 14:01 14:02 14:13 Temperature Pulse Rate 84 Pulse Rate [ 83 82 Anterior Bilateral Upper Lobe] Pulse Rate [ From Monitor] Respiratory 16 Rate Respiratory 24 22 Rate [Anterior Bilateral Upper Lobe] Blood Pressure 98/61 O2 Sat by Pulse 97 95 Oximetry 05/22/18 05/22/18 05/22/18 15:01 16:00 17:01 Temperature 97.5 F L Pulse Rate 83 79 82 Pulse Rate [ Anterior Bilateral Upper Lobe] Pulse Rate [ 94 H From Monitor] Respiratory 18 15 12 Rate Respiratory Rate [Anterior Bilateral Upper Lobe] Blood Pressure 98/61 132/85 132/85 O2 Sat by Pulse 97 97 96 Oximetry 05/22/18 05/22/18 05/22/18 18:00 18:01 19:01 Temperature Pulse Rate 92 H 90 91 H Pulse Rate [ Anterior Bilateral Upper Lobe] Pulse Rate [ From Monitor] Respiratory 12 19 Rate Respiratory Rate [Anterior Bilateral Upper Lobe] Blood Pressure 132/85 132/85 O2 Sat by Pulse 95 95 Oximetry 05/22/18 05/22/18 05/22/18 19:39 19:40 19:54 Temperature Pulse Rate Pulse Rate [ 80 82 Anterior Bilateral Upper Lobe] Pulse Rate [ From Monitor] Respiratory Rate Respiratory 15 15 Rate [Anterior Bilateral Upper Lobe] Blood Pressure O2 Sat by Pulse 94 Oximetry 05/22/18 20:00 Temperature 98.3 F Pulse Rate 87 Pulse Rate [ Anterior Bilateral Upper Lobe] Pulse Rate [ 99 H From Monitor] Respiratory 16 Rate Respiratory Rate [Anterior Bilateral Upper Lobe] Blood Pressure 136/86 O2 Sat by Pulse 93 Oximetry Constitutional: no acute distress, asleep Eyes: non-icteric Neck: supple, no lymphadenopathy Ascultation: Bilateral: diminished breath sounds Cardiovascular: regular rate and rhythm Gastrointestinal: normoactive bowel sounds Integumentary: normal, rash Extremities: no cyanosis, no edema, other (Sleeping at this time.) CBC and BMP: 05/22/18 05:06 05/23/18 16:13 ABG, PT/INR, D-dimer: ABG POC ABG pH 7.377 (7.35-7.45) 05/21/18 05:57 POC ABG pCO2 73.2 (35-45) H 05/21/18 05:57 POC ABG pO2 64 (80-105) L 05/21/18 05:57 POC ABG HCO3 43.0 05/21/18 05:57 POC ABG Total CO2 45 05/21/18 05:57 POC ABG O2 Sat 90 05/21/18 05:57 PT/INR, D-dimer PT 14.1 Sec. (12.2-14.9) 05/19/18 03:30 INR 1.05 (0.87-1.13) 05/19/18 03:30 Abnormal lab findings: Abnormal Labs 05/19/18 05/19/18 05/19/18 03:15 03:30 03:30 RDW 18.2 H Plt Count 126 L [place] % (Auto) 14.0 H Lymph # [place] # 1.1 H Seg Neutrophils % POC ABG pH 7.220 L POC ABG pCO2 94.1 H POC ABG pO2 66 L Sodium Carbon Dioxide 35 H BUN Glucose 114 H POC Glucose CK-MB (CK-2) 5.8 H CK-MB (CK-2) Rel Index 6.1 H Troponin T 0.233 H* NT-Pro-B Natriuret Pep 05/19/18 05/19/18 05/19/18 03:41 05:00 06:39 RDW Plt Count [place] % (Auto) Lymph # [place] # Seg Neutrophils % POC ABG pH 7.244 L POC ABG pCO2 85.3 H POC ABG pO2 Sodium Carbon Dioxide BUN Glucose POC Glucose 112 H CK-MB (CK-2) CK-MB (CK-2) Rel Index Troponin T NT-Pro-B Natriuret Pep 4192 H 05/19/18 05/19/18 05/19/18 06:44 10:12 12:04 RDW Plt Count [place] % (Auto) Lymph # [place] # Seg Neutrophils % POC ABG pH 7.244 L POC ABG pCO2 85.2 H POC ABG pO2 62 L Sodium Carbon Dioxide BUN Glucose POC Glucose 152 H CK-MB (CK-2) 5.8 H CK-MB (CK-2) Rel Index 6.9 H Troponin T 0.197 H* NT-Pro-B Natriuret Pep 05/19/18 05/19/18 05/19/18 13:56 18:26 19:55 RDW Plt Count [place] % (Auto) Lymph # [place] # Seg Neutrophils % POC ABG pH 7.271 L POC ABG pCO2 84.6 H POC ABG pO2 66 L Sodium Carbon Dioxide BUN Glucose POC Glucose 170 H CK-MB (CK-2) 6.1 H CK-MB (CK-2) Rel Index 7.1 H Troponin T 0.138 H* D NT-Pro-B Natriuret Pep 05/19/18 05/20/18 05/20/18 23:31 04:53 05:06 RDW 18.1 H Plt Count [place] % (Auto) Lymph # 0.9 L [place] # Seg Neutrophils % 79.9 H POC ABG pH POC ABG pCO2 POC ABG pO2 Sodium Carbon Dioxide BUN Glucose POC Glucose 168 H 148 H CK-MB (CK-2) CK-MB (CK-2) Rel Index Troponin T NT-Pro-B Natriuret Pep 05/20/18 05/20/18 05/20/18 05:06 11:38 12:13 RDW Plt Count [place] % (Auto) Lymph # [place] # Seg Neutrophils % POC ABG pH 7.303 L POC ABG pCO2 90.0 H POC ABG pO2 Sodium 147 H Carbon Dioxide 35 H BUN 18 H Glucose 171 H POC Glucose 183 H CK-MB (CK-2) CK-MB (CK-2) Rel Index Troponin T NT-Pro-B Natriuret Pep 05/20/18 05/21/18 05/21/18 18:07 00:17 05:03 RDW 18.2 H Plt Count [place] % (Auto) Lymph # [place] # Seg Neutrophils % POC ABG pH POC ABG pCO2 POC ABG pO2 Sodium Carbon Dioxide BUN Glucose POC Glucose 112 H 133 H CK-MB (CK-2) CK-MB (CK-2) Rel Index Troponin T NT-Pro-B Natriuret Pep 05/21/18 05/21/18 05/21/18 05:03 05:28 05:57 RDW Plt Count [place] % (Auto) Lymph # [place] # Seg Neutrophils % POC ABG pH POC ABG pCO2 73.2 H POC ABG pO2 64 L Sodium 152 H Carbon Dioxide 39 H BUN 32 H Glucose 162 H POC Glucose 175 H CK-MB (CK-2) CK-MB (CK-2) Rel Index Troponin T NT-Pro-B Natriuret Pep 05/21/18 05/21/18 05/21/18 11:46 17:02 22:14 RDW Plt Count [place] % (Auto) Lymph # [place] # Seg Neutrophils % POC ABG pH POC ABG pCO2 POC ABG pO2 Sodium Carbon Dioxide BUN Glucose POC Glucose 225 H 120 H 273 H CK-MB (CK-2) CK-MB (CK-2) Rel Index Troponin T NT-Pro-B Natriuret Pep 05/22/18 05/22/18 05/22/18 05:06 05:06 05:20 RDW 19.0 H Plt Count [place] % (Auto) Lymph # [place] # Seg Neutrophils % POC ABG pH POC ABG pCO2 POC ABG pO2 Sodium 151 H Carbon Dioxide 37 H BUN 43 H Glucose 267 H POC Glucose 283 H CK-MB (CK-2) CK-MB (CK-2) Rel Index Troponin T NT-Pro-B Natriuret Pep 05/22/18 17:12 RDW Plt Count [place] % (Auto) Lymph # [place] # Seg Neutrophils % POC ABG pH POC ABG pCO2 POC ABG pO2 Sodium Carbon Dioxide BUN Glucose POC Glucose 263 H CK-MB (CK-2) CK-MB (CK-2) Rel Index Troponin T NT-Pro-B Natriuret Pep Chest x-ray: report reviewed (Bilateral hilar infiltrates.), image reviewed Allied health notes reviewed: RT
[2018-05-22] MEDS: SENOKOT PO SCH (21:51)
[2018-05-22] MEDS: DESYREL PO SCH (21:52)
[2018-05-22] MEDS: HALDOL IM PRN (21:53)
[2018-05-22] MEDS: SINGULAIR PO SCH (22:03)
[2018-05-23] MEDS: SODIUM CHLORIDE FLUSH SYRINGE 10 ML IV SCH ×2 (00:16→12:07)
[2018-05-23] MEDS: HumaLOG SUB-Q SCH ×4 (00:43→17:53)
[2018-05-23] MEDS: DUONEB *Not for PRN Use IH SCH ×4 (02:58→19:56)
[2018-05-23] MEDS: APRESOLINE PO SCH ×3 (06:00→21:19)
[2018-05-23] MEDS: ISORDIL TITRADOSE PO SCH ×3 (06:01→22:50)
[2018-05-23] MEDS: SOLU-Medrol IV SCH ×3 (06:01→22:51)
[2018-05-23] MEDS: BROVANA NEBU IH SCH ×2 (08:04→19:56)
[2018-05-23] MEDS: PULMICORT IH SCH ×2 (08:04→19:56)
--- NOTE | 2018-05-23 09:03 | Progress Note ---
Assessment and Plan Assessment and plan: Acute on chronic resp failure with hypoxia, hypercapnea. admitted to [facility] feels better pulm following COPD exacerbation. solumedrol BIPAP Toxic metabolic encephalopathy. improved, now awake,alert Acute on chronic systolic CHF. Continue lasix iv Cardiology following Diabetes mellitus type 2. fingerstick glucose q ac and hs Hypelipidemia hypertension. Monitor BP Sleep apnea Schizophrenia Agitation on and off haldol prn Full code status. I discussed with patient and sister, Gladys Yates at bedside. Sister is POA and says patient is Full code History Interval history: Shortness of breath improved She feels better On high flow nasal canula Hospitalist Physical - Physical exam Narrative exam: GEN: Not in acute distress, Obese HEENT: Normocephalic, atraumatic, Neck: supple, No JVD Lungs: Decreased breath sounds bilat, bilat rhonchi, crackles Heart:S1 and S2 regular, no murmurs, rubs or gallop, Abd:soft, non tender, non distended, normal bowel sounds Ext: No edema, no clubbing or cyanosis Neuro: awake,alert,follows commands, moves all ext - Constitutional Vitals: Temp Pulse Resp BP Pulse Ox 98.4 F 82 20 125/70 97 05/23/18 07:40 05/23/18 08:04 05/23/18 08:04 05/23/18 05:00 05/23/18 08:04 General appearance: Present: other (on Bipap therapy) Results - Labs CBC & Chem 7: 05/22/18 05:06 05/22/18 05:06 Labs: Laboratory Last Values WBC 8.8 K/mm3 (4.5-11.0) 05/22/18 05:06 RBC 4.15 M/mm3 (3.65-5.03) 05/22/18 05:06 Hgb 12.0 gm/dl (10.1-14.3) 05/22/18 05:06 Hct 39.7 % (30.3-42.9) 05/22/18 05:06 MCV 96 fl (79-97) 05/22/18 05:06 MCH 29 pg (28-32) 05/22/18 05:06 MCHC 30 % (30-34) 05/22/18 05:06 RDW 19.0 % (13.2-15.2) H 05/22/18 05:06 Plt Count 172 K/mm3 (140-440) 05/22/18 05:06 Lymph % (Auto) 14.6 % (13.4-35.0) 05/20/18 05:06 [place] % (Auto) 5.4 % (0.0-7.3) 05/20/18 05:06 Eos % (Auto) 0.0 % (0.0-4.3) 05/20/18 05:06 Baso % (Auto) 0.1 % (0.0-1.8) 05/20/18 05:06 Lymph # 0.9 K/mm3 (1.2-5.4) L 05/20/18 05:06 [place] # 0.4 K/mm3 (0.0-0.8) 05/20/18 05:06 Eos # 0.0 K/mm3 (0.0-0.4) 05/20/18 05:06 Baso # 0.0 K/mm3 (0.0-0.1) 05/20/18 05:06 Seg Neutrophils % 79.9 % (40.0-70.0) H 05/20/18 05:06 Seg Neutrophils # 5.2 K/mm3 (1.8-7.7) 05/20/18 05:06 PT 14.1 Sec. (12.2-14.9) 05/19/18 03:30 INR 1.05 (0.87-1.13) 05/19/18 03:30 APTT 26.8 Sec. (24.2-36.6) 05/19/18 03:30 POC ABG pH 7.377 (7.35-7.45) 05/21/18 05:57 POC ABG pCO2 73.2 (35-45) H 05/21/18 05:57 POC ABG pO2 64 (80-105) L 05/21/18 05:57 POC ABG HCO3 43.0 05/21/18 05:57 POC ABG Total CO2 45 05/21/18 05:57 POC ABG O2 Sat 90 05/21/18 05:57 POC ABG Base Excess 18 05/21/18 05:57 FiO2 80 % 05/21/18 05:57 Sodium 151 mmol/L (137-145) H 05/22/18 05:06 Potassium 5.0 mmol/L (3.6-5.0) 05/22/18 05:06 Chloride 103.1 mmol/L (98-107) 05/22/18 05:06 Carbon Dioxide 37 mmol/L (22-30) H 05/22/18 05:06 Anion Gap 16 mmol/L 05/22/18 05:06 BUN 43 mg/dL (7-17) H 05/22/18 05:06 Creatinine 1.1 mg/dL (0.7-1.2) 05/22/18 05:06 Estimated GFR > 60 ml/min 05/22/18 05:06 BUN/Creatinine Ratio 39 % 05/22/18 05:06 Glucose 267 mg/dL (65-100) H 05/22/18 05:06 POC Glucose 240 (70-105) H 05/23/18 00:40 Calcium 9.0 mg/dL (8.4-10.2) 05/22/18 05:06 Total Creatine Kinase 85 units/L (30-135) 05/19/18 13:56 CK-MB (CK-2) 6.1 ng/mL (0.0-4.0) H 05/19/18 13:56 CK-MB (CK-2) Rel Index 7.1 (0-4) H 05/19/18 13:56 Troponin T 0.138 ng/mL (0.00-0.029) H* D 05/19/18 13:56 NT-Pro-B Natriuret Pep 4192 pg/mL (0-450) H 05/19/18 03:41 Triglycerides 81 mg/dL (2-149) 05/19/18 03:30 Cholesterol 125 mg/dL (50-199) 05/19/18 03:30 LDL Cholesterol Direct 58 mg/dL (50-130) 05/19/18 03:30 HDL Cholesterol 53 mg/dL (40-59) 05/19/18 03:30 Cholesterol/HDL Ratio 2.35 % 05/19/18 03:30 HCG, Qual Negative (Negative) 05/19/18 03:30 Nutrition/Malnutrition Assess - Dietary Evaluation Nutrition/Malnutrition Findings: Nutrition Notes Start: 05/20/18 13:35 Freq: Status: Active Protocol: Document 05/21/18 09:14 TW (Rec: 05/21/18 10:02 TW [id number]) Co-Sign 05/21/18 09:14 NHALL Nutrition Notes Initial or Follow up Brief Note Current Diagnosis COPD Diabetes Hypertension Heart Failure Respiratory Failure Current Diet CHO consistent Subjective/Other Information F/U for diet advancement. Per RN pt is able to eat by mouth without signs of aspiration. RN states that they have charity feeding pt applesauce. RN called MD to discuss diet order change to CHO consistent . Burn Absent Trauma Absent Nutrition Intervention Follow-Up By: 05/24/18 Additional Comments F/U for PO intakes and need for assessment
[2018-05-23] MEDS: FLONASE NS SCH ×2 (11:57→21:23)
[2018-05-23] MEDS: LEVAQUIN 750MG/150ML 750 MG/150 ML BAG IV SCH (11:57)
[2018-05-23] MEDS: PEPCID PO SCH (11:58)
[2018-05-23] MEDS: DOLOPHINE PO SCH ×2 (11:58→21:18)
[2018-05-23] MEDS: COZAAR PO SCH (11:58)
[2018-05-23] MEDS: ECOTRIN PO SCH (11:59)
[2018-05-23] MEDS: ALDACTONE PO SCH (12:00)
[2018-05-23] MEDS: COLACE PO SCH ×2 (12:01→21:21)
[2018-05-23] MEDS: CLARITIN PO SCH (12:01)
[2018-05-23] MEDS: ATIVAN IV PRN ×3 (12:02→22:34)
[2018-05-23] MEDS: COREG PO SCH ×2 (12:06→22:08)
[2018-05-23 17:44] LABS: BUN/Creatinine Ratio 32; Blood Urea Nitrogen 32 mg/dL (7-17); Calcium 9.1 mg/dL (8.4-10.2); Hemolysis Index 18
[2018-05-23] MEDS: HALDOL IM PRN (17:50)
--- NOTE | 2018-05-23 18:25 | Progress Note ---
Assessment and Plan - Patient Problems (1) COPD exacerbation Current Visit: Yes Status: Acute (2) Morbid obesity with BMI of 45.0-49.9, adult Current Visit: Yes Status: Acute (3) Sleep apnea syndrome Current Visit: Yes Status: Acute (4) CHF (congestive heart failure) Current Visit: Yes Status: Chronic Qualifiers: Subjective Date of service: 05/23/18 Principal diagnosis: Acute on chronic hypercapnic, hypoxemic resp failure, AE- COPD, Interval history: no cv c/o Objective Vital Signs Temp Pulse Pulse Pulse Resp Resp BP 05/23/18 16:00 83 83 18 158/92 05/23/18 15:43 05/23/18 15:00 82 17 130/75 05/23/18 14:58 83 22 05/23/18 14:37 78 22 05/23/18 14:36 05/23/18 14:00 75 20 130/74 05/23/18 13:00 78 16 115/68 05/23/18 12:06 85 128/78 05/23/18 12:00 98.5 F 83 83 18 127/78 05/23/18 11:59 85 163/93 05/23/18 11:58 86 163/93 05/23/18 11:00 75 16 163/93 05/23/18 10:00 78 18 163/93 05/23/18 09:00 86 19 163/93 05/23/18 08:20 78 22 05/23/18 08:04 82 20 05/23/18 08:00 82 85 19 163/93 05/23/18 07:40 98.4 F 05/23/18 07:00 82 15 125/70 05/23/18 06:00 81 17 125/70 05/23/18 05:00 70 17 125/70 05/23/18 04:00 97.9 F 65 68 18 125/70 05/23/18 03:13 78 23 05/23/18 03:00 74 14 05/23/18 02:58 76 23 05/23/18 02:10 79 19 05/23/18 02:00 86 05/23/18 01:01 86 20 111/70 05/23/18 00:28 82 14 111/70 05/23/18 00:00 98.1 F 77 94 H 19 111/70 05/22/18 23:01 93 H 17 136/86 05/22/18 23:00 95 H 19 136/86 05/22/18 22:01 89 17 136/86 05/22/18 22:00 95 H 05/22/18 21:57 90 136/86 05/22/18 21:52 89 136/86 05/22/18 21:01 103 H 23 136/86 05/22/18 20:15 87 19 136/86 05/22/18 20:00 98.3 F 87 99 H 16 136/86 05/22/18 19:54 82 15 05/22/18 19:40 05/22/18 19:39 80 15 05/22/18 19:01 91 H 19 132/85 Pulse Ox 05/23/18 16:00 90 05/23/18 15:43 92 05/23/18 15:00 87 05/23/18 14:58 05/23/18 14:37 05/23/18 14:36 95 05/23/18 14:00 96 05/23/18 13:00 98 05/23/18 12:06 05/23/18 12:00 95 05/23/18 11:59 05/23/18 11:58 05/23/18 11:00 95 05/23/18 10:00 94 05/23/18 09:00 94 05/23/18 08:20 05/23/18 08:04 97 05/23/18 08:00 96 05/23/18 07:40 05/23/18 07:00 90 05/23/18 06:00 94 05/23/18 05:00 97 05/23/18 04:00 96 05/23/18 03:13 05/23/18 03:00 96 05/23/18 02:58 05/23/18 02:10 93 05/23/18 02:00 05/23/18 01:01 91 05/23/18 00:28 92 05/23/18 00:00 90 05/22/18 23:01 93 05/22/18 23:00 96 05/22/18 22:01 87 05/22/18 22:00 05/22/18 21:57 05/22/18 21:52 05/22/18 21:01 05/22/18 20:15 05/22/18 20:00 93 05/22/18 19:54 05/22/18 19:40 94 05/22/18 19:39 05/22/18 19:01 95 - Physical Examination General: No Apparent Distress HEENT: Positive: PERRL Neck: Positive: neck supple Cardiac: Positive: Reg Rate and Rhythm Lungs: Positive: clear to auscultation Abdomen: Positive: Tender Extremities: Present: normal - Labs and Meds Comprehensive Metabolic Panel 05/23/18 Range/Units 16:13 Sodium 144 (137-145) mmol/L Potassium 4.6 (3.6-5.0) mmol/L Chloride 98.8 (98-107) mmol/L Carbon Dioxide 36 H (22-30) mmol/L BUN 32 H (7-17) mg/dL Creatinine 1.0 (0.7-1.2) mg/dL Glucose 204 H (65-100) mg/dL Calcium 9.1 (8.4-10.2) mg/dL - Imaging and Cardiology EKG: image reviewed - Allied health notes Allied health notes reviewed: RT
[2018-05-23] MEDS: MORPHINE IV PRN ×2 (18:26→22:35)
[2018-05-23] MEDS: SINGULAIR PO SCH (21:21)
[2018-05-23] MEDS: SENOKOT PO SCH (21:22)
[2018-05-23] MEDS: DESYREL PO SCH (21:24)
--- NOTE | 2018-05-23 22:55 | Progress Note ---
Assessment and Plan Patient sleeping at this time on BIPAP 16/8, rate 20, FIO2 60%.O2 saturation 95%. Patient morbidly Obese. No acute respiratory distress on BIPAP. - Patient Problems (1) COPD exacerbation Current Visit: Yes Status: Acute Plan to address problem: BIPAP 16/8, rate 20, FIO2 60% Albuterol/atrovent aerosol treatments q 6 hours. Continue I/V solumedrol. Continue Levaquin. S/C Lovenox or SCDs Continue famotidine. (2) Pulmonary infiltrate Current Visit: Yes Status: Acute Plan to address problem: Continue Levaquin. 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 (4) Sleep apnea syndrome Current Visit: Yes Status: Acute Plan to address problem: Patient is on BIPAP 16/8, rate 20, FIO2 60%. (5) CHF (congestive heart failure) Current Visit: Yes Status: Chronic Qualifiers: Plan to address problem: Management as per primary care and cardiology. (6) Hypertension Current Visit: Yes Status: Chronic Qualifiers: Plan to address problem: Mangement as per primary care. (7) T2DM (type 2 diabetes mellitus) Current Visit: Yes Status: Chronic Plan to address problem: Management as per primary care. (8) Acute and chronic respiratory failure with hypercapnia Current Visit: No Status: Acute Plan to address problem: BIPAP 16/8, rate 20, FIO2 60% Albuterol/atrovent aerosol treatments q 6 hours. Continue I/V solumedrol. Continue Levaquin. S/C Lovenox or SCDs Continue famotidine (9) Acute kidney injury Current Visit: No Status: Acute Plan to address problem: Management as per nephrology. (10) GERD (gastroesophageal reflux disease) Current Visit: No Status: Acute Qualifiers: Esophagitis presence: without esophagitis Qualified Code(s): K21.9 - Gastro-esophageal reflux disease without esophagitis Plan to address problem: Patient is on famotidine. (11) Sepsis Current Visit: No Status: Acute Plan to address problem: Continue Levaquin. Subjective Date of service: 05/23/18 Principal diagnosis: Acute on chronic hypercapnic, hypoxemic resp failure, AE- COPD, Interval history: Patient sleeping at this time on BIPAP 16/8, rate 20, FIO2 60%.O2 saturation 95%. Patient morbidly Obese. No acute respiratory distress on BIPAP. Objective Vital Signs - 12hr 05/23/18 05/23/18 05/23/18 11:00 11:58 11:59 Temperature Pulse Rate 75 86 85 Pulse Rate [ Anterior Bilateral Throughout] Pulse Rate [ Anterior Bilateral Upper Lobe] Pulse Rate [ From Monitor] Respiratory 16 Rate Respiratory Rate [Anterior Bilateral Throughout] Respiratory Rate [Anterior Bilateral Upper Lobe] Blood Pressure 163/93 163/93 163/93 O2 Sat by Pulse 95 Oximetry 05/23/18 05/23/18 05/23/18 12:00 12:06 13:00 Temperature 98.5 F Pulse Rate 83 85 78 Pulse Rate [ Anterior Bilateral Throughout] Pulse Rate [ Anterior Bilateral Upper Lobe] Pulse Rate [ 83 From Monitor] Respiratory 18 16 Rate Respiratory Rate [Anterior Bilateral Throughout] Respiratory Rate [Anterior Bilateral Upper Lobe] Blood Pressure 127/78 128/78 115/68 O2 Sat by Pulse 95 98 Oximetry 05/23/18 05/23/18 05/23/18 14:00 14:36 14:37 Temperature Pulse Rate 75 Pulse Rate [ Anterior Bilateral Throughout] Pulse Rate [ 78 Anterior Bilateral Upper Lobe] Pulse Rate [ From Monitor] Respiratory 20 Rate Respiratory Rate [Anterior Bilateral Throughout] Respiratory 22 Rate [Anterior Bilateral Upper Lobe] Blood Pressure 130/74 O2 Sat by Pulse 96 95 Oximetry 05/23/18 05/23/18 05/23/18 14:58 15:00 15:43 Temperature Pulse Rate 82 Pulse Rate [ Anterior Bilateral Throughout] Pulse Rate [ 83 Anterior Bilateral Upper Lobe] Pulse Rate [ From Monitor] Respiratory 17 Rate Respiratory Rate [Anterior Bilateral Throughout] Respiratory 22 Rate [Anterior Bilateral Upper Lobe] Blood Pressure 130/75 O2 Sat by Pulse 87 92 Oximetry 05/23/18 05/23/18 05/23/18 16:00 19:26 19:54 Temperature 99 F 99.1 F Pulse Rate 83 Pulse Rate [ 82 Anterior Bilateral Throughout] Pulse Rate [ Anterior Bilateral Upper Lobe] Pulse Rate [ 83 From Monitor] Respiratory 18 Rate Respiratory 17 Rate [Anterior Bilateral Throughout] Respiratory Rate [Anterior Bilateral Upper Lobe] Blood Pressure 158/92 O2 Sat by Pulse 90 Oximetry 05/23/18 05/23/18 05/23/18 19:55 20:08 21:19 Temperature Pulse Rate 88 Pulse Rate [ 89 Anterior Bilateral Throughout] Pulse Rate [ Anterior Bilateral Upper Lobe] Pulse Rate [ From Monitor] Respiratory Rate Respiratory 17 Rate [Anterior Bilateral Throughout] Respiratory Rate [Anterior Bilateral Upper Lobe] Blood Pressure 177/103 O2 Sat by Pulse 93 Oximetry 05/23/18 22:50 Temperature Pulse Rate 109 H Pulse Rate [ Anterior Bilateral Throughout] Pulse Rate [ Anterior Bilateral Upper Lobe] Pulse Rate [ From Monitor] Respiratory Rate Respiratory Rate [Anterior Bilateral Throughout] Respiratory Rate [Anterior Bilateral Upper Lobe] Blood Pressure 168/120 O2 Sat by Pulse Oximetry Constitutional: no acute distress, asleep Eyes: non-icteric Neck: supple, no lymphadenopathy Ascultation: Bilateral: diminished breath sounds Cardiovascular: regular rate and rhythm Gastrointestinal: normoactive bowel sounds, soft Integumentary: normal, rash Extremities: no cyanosis, no edema, other (Sleeping at this time.) Neurologic: other (Patient is sleeping.) Psychiatric: other (Patient sleeping.) CBC and BMP: 05/22/18 05:06 05/23/18 16:13 ABG, PT/INR, D-dimer: ABG POC ABG pH 7.377 (7.35-7.45) 05/21/18 05:57 POC ABG pCO2 73.2 (35-45) H 05/21/18 05:57 POC ABG pO2 64 (80-105) L 05/21/18 05:57 POC ABG HCO3 43.0 05/21/18 05:57 POC ABG Total CO2 45 05/21/18 05:57 POC ABG O2 Sat 90 05/21/18 05:57 PT/INR, D-dimer PT 14.1 Sec. (12.2-14.9) 05/19/18 03:30 INR 1.05 (0.87-1.13) 05/19/18 03:30 Abnormal lab findings: Abnormal Labs 05/19/18 05/19/18 05/19/18 03:15 03:30 03:30 RDW 18.2 H Plt Count 126 L Rich % (Auto) 14.0 H Lymph # Rich # 1.1 H Seg Neutrophils % POC ABG pH 7.220 L POC ABG pCO2 94.1 H POC ABG pO2 66 L Sodium Carbon Dioxide 35 H BUN Glucose 114 H POC Glucose CK-MB (CK-2) 5.8 H CK-MB (CK-2) Rel Index 6.1 H Troponin T 0.233 H* NT-Pro-B Natriuret Pep 05/19/18 05/19/18 05/19/18 03:41 05:00 06:39 RDW Plt Count Rich % (Auto) Lymph # Rich # Seg Neutrophils % POC ABG pH 7.244 L POC ABG pCO2 85.3 H POC ABG pO2 Sodium Carbon Dioxide BUN Glucose POC Glucose 112 H CK-MB (CK-2) CK-MB (CK-2) Rel Index Troponin T NT-Pro-B Natriuret Pep 4192 H 05/19/18 05/19/18 05/19/18 06:44 10:12 12:04 RDW Plt Count Rich % (Auto) Lymph # Rich # Seg Neutrophils % POC ABG pH 7.244 L POC ABG pCO2 85.2 H POC ABG pO2 62 L Sodium Carbon Dioxide BUN Glucose POC Glucose 152 H CK-MB (CK-2) 5.8 H CK-MB (CK-2) Rel Index 6.9 H Troponin T 0.197 H* NT-Pro-B Natriuret Pep 05/19/18 05/19/18 05/19/18 13:56 18:26 19:55 RDW Plt Count Rich % (Auto) Lymph # Rich # Seg Neutrophils % POC ABG pH 7.271 L POC ABG pCO2 84.6 H POC ABG pO2 66 L Sodium Carbon Dioxide BUN Glucose POC Glucose 170 H CK-MB (CK-2) 6.1 H CK-MB (CK-2) Rel Index 7.1 H Troponin T 0.138 H* D NT-Pro-B Natriuret Pep 05/19/18 05/20/18 05/20/18 23:31 04:53 05:06 RDW 18.1 H Plt Count Rich % (Auto) Lymph # 0.9 L Rich # Seg Neutrophils % 79.9 H POC ABG pH POC ABG pCO2 POC ABG pO2 Sodium Carbon Dioxide BUN Glucose POC Glucose 168 H 148 H CK-MB (CK-2) CK-MB (CK-2) Rel Index Troponin T NT-Pro-B Natriuret Pep 05/20/18 05/20/18 05/20/18 05:06 11:38 12:13 RDW Plt Count Rich % (Auto) Lymph # Rich # Seg Neutrophils % POC ABG pH 7.303 L POC ABG pCO2 90.0 H POC ABG pO2 Sodium 147 H Carbon Dioxide 35 H BUN 18 H Glucose 171 H POC Glucose 183 H CK-MB (CK-2) CK-MB (CK-2) Rel Index Troponin T NT-Pro-B Natriuret Pep 05/20/18 05/21/18 05/21/18 18:07 00:17 05:03 RDW 18.2 H Plt Count Rich % (Auto) Lymph # Rich # Seg Neutrophils % POC ABG pH POC ABG pCO2 POC ABG pO2 Sodium Carbon Dioxide BUN Glucose POC Glucose 112 H 133 H CK-MB (CK-2) CK-MB (CK-2) Rel Index Troponin T NT-Pro-B Natriuret Pep 05/21/18 05/21/18 05/21/18 05:03 05:28 05:57 RDW Plt Count Rich % (Auto) Lymph # Rich # Seg Neutrophils % POC ABG pH POC ABG pCO2 73.2 H POC ABG pO2 64 L Sodium 152 H Carbon Dioxide 39 H BUN 32 H Glucose 162 H POC Glucose 175 H CK-MB (CK-2) CK-MB (CK-2) Rel Index Troponin T NT-Pro-B Natriuret Pep 05/21/18 05/21/18 05/21/18 11:46 17:02 22:14 RDW Plt Count Rich % (Auto) Lymph # Rich # Seg Neutrophils % POC ABG pH POC ABG pCO2 POC ABG pO2 Sodium Carbon Dioxide BUN Glucose POC Glucose 225 H 120 H 273 H CK-MB (CK-2) CK-MB (CK-2) Rel Index Troponin T NT-Pro-B Natriuret Pep 05/22/18 05/22/18 05/22/18 05:06 05:06 05:20 RDW 19.0 H Plt Count Rich % (Auto) Lymph # Rich # Seg Neutrophils % POC ABG pH POC ABG pCO2 POC ABG pO2 Sodium 151 H Carbon Dioxide 37 H BUN 43 H Glucose 267 H POC Glucose 283 H CK-MB (CK-2) CK-MB (CK-2) Rel Index Troponin T NT-Pro-B Natriuret Pep 05/22/18 05/23/18 05/23/18 17:12 00:40 11:40 RDW Plt Count Rich % (Auto) Lymph # Rich # Seg Neutrophils % POC ABG pH POC ABG pCO2 POC ABG pO2 Sodium Carbon Dioxide BUN Glucose POC Glucose 263 H 240 H 235 H CK-MB (CK-2) CK-MB (CK-2) Rel Index Troponin T NT-Pro-B Natriuret Pep 05/23/18 05/23/18 16:13 17:11 RDW Plt Count Rich % (Auto) Lymph # Rich # Seg Neutrophils % POC ABG pH POC ABG pCO2 POC ABG pO2 Sodium Carbon Dioxide 36 H BUN 32 H Glucose 204 H POC Glucose 188 H CK-MB (CK-2) CK-MB (CK-2) Rel Index Troponin T NT-Pro-B Natriuret Pep Allied health notes reviewed: RT
[2018-05-23] MEDS ORDERED: LOVENOX SUB-Q SCH (23:45)
[2018-05-24] MEDS: DUONEB *Not for PRN Use IH SCH ×4 (01:41→20:54)
[2018-05-24] MEDS: APRESOLINE PO SCH ×3 (04:00→20:31)
[2018-05-24] MEDS: ISORDIL TITRADOSE PO SCH ×3 (04:00→20:30)
[2018-05-24] MEDS: BROVANA NEBU IH SCH ×2 (07:44→20:42)
[2018-05-24] MEDS: PULMICORT IH SCH ×2 (07:44→20:42)
[2018-05-24] MEDS: SOLU-Medrol IV SCH ×3 (08:05→21:40)
--- NOTE | 2018-05-24 09:03 | Progress Note ---
Assessment and Plan Assessment and plan: Acute on chronic resp failure with hypoxia, hypercapnea. admitted to [facility] feels much better pulm following COPD exacerbation. solumedrol BIPAP Toxic metabolic encephalopathy. Much improved, now awake,alert, oriented x 3 Acute on chronic systolic CHF. Continue lasix iv Cardiology following Diabetes mellitus type 2. fingerstick glucose q ac and hs Hypelipidemia hypertension. Monitor BP Sleep apnea Schizophrenia Agitation on and off haldol prn Full code status. I discussed with patient and sister, Gladys Yates at bedside. Sister is POA and says patient is Full code Disposition: To discharge to SNF when weaned off high flow and down to [place] History Interval history: Shortness of breath improved She feels much better Still on high flow nasal canula Asking that she wants to go home Hospitalist Physical - Physical exam Narrative exam: GEN: Not in acute distress, Obese HEENT: Normocephalic, atraumatic, Neck: supple, No JVD Lungs: Decreased breath sounds bilat, bilat rhonchi, crackles Heart:S1 and S2 regular, no murmurs, rubs or gallop, Abd:soft, non tender, non distended, normal bowel sounds Ext: No edema, no clubbing or cyanosis Neuro: Awake,alert,follows commands, moves all ext - Constitutional Vitals: Temp Pulse Resp BP Pulse Ox 97.7 F 76 18 144/86 99 05/24/18 08:00 05/24/18 07:44 05/24/18 07:44 05/24/18 06:00 05/24/18 07:44 General appearance: Present: other (on Bipap therapy) Results - Labs CBC & Chem 7: 05/22/18 05:06 05/23/18 16:13 Labs: Laboratory Last Values WBC 8.8 K/mm3 (4.5-11.0) 05/22/18 05:06 RBC 4.15 M/mm3 (3.65-5.03) 05/22/18 05:06 Hgb 12.0 gm/dl (10.1-14.3) 05/22/18 05:06 Hct 39.7 % (30.3-42.9) 05/22/18 05:06 MCV 96 fl (79-97) 05/22/18 05:06 MCH 29 pg (28-32) 05/22/18 05:06 MCHC 30 % (30-34) 05/22/18 05:06 RDW 19.0 % (13.2-15.2) H 05/22/18 05:06 Plt Count 172 K/mm3 (140-440) 05/22/18 05:06 Lymph % (Auto) 14.6 % (13.4-35.0) 05/20/18 05:06 [place] % (Auto) 5.4 % (0.0-7.3) 05/20/18 05:06 Eos % (Auto) 0.0 % (0.0-4.3) 05/20/18 05:06 Baso % (Auto) 0.1 % (0.0-1.8) 05/20/18 05:06 Lymph # 0.9 K/mm3 (1.2-5.4) L 05/20/18 05:06 [place] # 0.4 K/mm3 (0.0-0.8) 05/20/18 05:06 Eos # 0.0 K/mm3 (0.0-0.4) 05/20/18 05:06 Baso # 0.0 K/mm3 (0.0-0.1) 05/20/18 05:06 Seg Neutrophils % 79.9 % (40.0-70.0) H 05/20/18 05:06 Seg Neutrophils # 5.2 K/mm3 (1.8-7.7) 05/20/18 05:06 PT 14.1 Sec. (12.2-14.9) 05/19/18 03:30 INR 1.05 (0.87-1.13) 05/19/18 03:30 APTT 26.8 Sec. (24.2-36.6) 05/19/18 03:30 POC ABG pH 7.377 (7.35-7.45) 05/21/18 05:57 POC ABG pCO2 73.2 (35-45) H 05/21/18 05:57 POC ABG pO2 64 (80-105) L 05/21/18 05:57 POC ABG HCO3 43.0 05/21/18 05:57 POC ABG Total CO2 45 05/21/18 05:57 POC ABG O2 Sat 90 05/21/18 05:57 POC ABG Base Excess 18 02/01/19 05:57 FiO2 80 % 05/21/18 05:57 Sodium 144 mmol/L (137-145) 05/23/18 16:13 Potassium 4.6 mmol/L (3.6-5.0) 05/23/18 16:13 Chloride 98.8 mmol/L (98-107) 05/23/18 16:13 Carbon Dioxide 36 mmol/L (22-30) H 05/23/18 16:13 Anion Gap 14 mmol/L 05/23/18 16:13 BUN 32 mg/dL (7-17) H 05/23/18 16:13 Creatinine 1.0 mg/dL (0.7-1.2) 05/23/18 16:13 Estimated GFR > 60 ml/min 05/23/18 16:13 BUN/Creatinine Ratio 32 % 05/23/18 16:13 Glucose 204 mg/dL (65-100) H 05/23/18 16:13 POC Glucose 144 (70-105) H 05/24/18 05:20 Calcium 9.1 mg/dL (8.4-10.2) 05/23/18 16:13 Total Creatine Kinase 85 units/L (30-135) 05/19/18 13:56 CK-MB (CK-2) 6.1 ng/mL (0.0-4.0) H 05/19/18 13:56 CK-MB (CK-2) Rel Index 7.1 (0-4) H 05/19/18 13:56 Troponin T 0.138 ng/mL (0.00-0.029) H* D 05/19/18 13:56 NT-Pro-B Natriuret Pep 4192 pg/mL (0-450) H 05/19/18 03:41 Triglycerides 81 mg/dL (2-149) 05/19/18 03:30 Cholesterol 125 mg/dL (50-199) 05/19/18 03:30 LDL Cholesterol Direct 58 mg/dL (50-130) 05/19/18 03:30 HDL Cholesterol 53 mg/dL (40-59) 05/19/18 03:30 Cholesterol/HDL Ratio 2.35 % 05/19/18 03:30 HCG, Qual Negative (Negative) 05/19/18 03:30 Nutrition/Malnutrition Assess - Dietary Evaluation Nutrition/Malnutrition Findings: Nutrition Notes Start: 05/20/18 13:35 Freq: Status: Active Protocol: Document 05/21/18 09:14 TW (Rec: 05/21/18 10:02 TW [id number]) Co-Sign 05/21/18 09:14 NHALL Nutrition Notes Initial or Follow up Brief Note Current Diagnosis COPD Diabetes Hypertension Heart Failure Respiratory Failure Current Diet CHO consistent Subjective/Other Information F/U for diet advancement. Per RN pt is able to eat by mouth without signs of aspiration. RN states that they have charity feeding pt applesauce. RN called MD to discuss diet order change to CHO consistent . Burn Absent Trauma Absent Nutrition Intervention Follow-Up By: 05/24/18 Additional Comments F/U for PO intakes and need for assessment
[2018-05-24] MEDS: FLONASE NS SCH ×2 (09:41→22:00)
[2018-05-24] MEDS: COZAAR PO SCH (09:42)
[2018-05-24] MEDS: ECOTRIN PO SCH (09:42)
[2018-05-24] MEDS: ATIVAN IV PRN ×4 (09:42→23:16)
[2018-05-24] MEDS: COREG PO SCH ×2 (09:42→21:42)
[2018-05-24] MEDS: ALDACTONE PO SCH (09:42)
[2018-05-24] MEDS: COLACE PO SCH ×2 (09:43→21:41)
[2018-05-24] MEDS: CLARITIN PO SCH (09:43)
[2018-05-24] MEDS: SODIUM CHLORIDE FLUSH SYRINGE 10 ML IV SCH ×2 (09:43→21:39)
[2018-05-24] MEDS: DOLOPHINE PO SCH ×2 (09:43→21:45)
[2018-05-24] MEDS: PEPCID PO SCH (09:43)
[2018-05-24] MEDS: LEVAQUIN 750MG/150ML 750 MG/150 ML BAG IV SCH (09:43)
--- NOTE | 2018-05-24 10:12 | Progress Note ---
Addendum entered and electronically signed by ELSA HAIRSTON MD 05/24/18 18:12: Conservative cardiac management. Original Note: Assessment and Plan Acute respiratory failure Chronic systolic heart failure COPD on oxygen as an outpatient Dilated Nonischemic Cardiomyopathy LHC at [facility] in 2013: no significant CAD, EF 45% moderately decrease LVEF 20-25% by echo 08/2017 Chronic elevated troponin, nonspecific Recommend: Fluid/sodium restriction. Continue medical management for heart failure to include diuretics, afterload agents and beta blockers. Subjective Date of service: 05/24/18 Principal diagnosis: Acute on chronic hypercapnic, hypoxemic resp failure, AE- COPD, Interval history: Patient is resting in bed comfortably with eyes closed, on high flow oxygen. Objective Vital Signs Temp Pulse Pulse Pulse Pulse Resp Resp 05/24/18 08:00 97.7 F 05/24/18 07:44 76 18 05/24/18 06:00 78 14 05/24/18 05:00 68 12 05/24/18 04:00 68 83 13 05/24/18 03:08 98.9 F 05/24/18 03:00 78 12 05/24/18 02:00 79 14 05/24/18 01:50 79 17 05/24/18 01:46 05/24/18 01:41 82 19 05/24/18 01:00 85 19 05/24/18 00:00 97 H 83 28 H 05/23/18 23:00 80 16 05/23/18 22:56 98.8 F 82 28 H 05/23/18 22:50 109 H 05/23/18 22:08 88 05/23/18 22:00 93 H 28 H 05/23/18 21:19 88 05/23/18 21:00 91 H 17 05/23/18 20:08 89 17 05/23/18 20:00 82 83 16 05/23/18 19:55 05/23/18 19:54 82 17 05/23/18 19:26 99.1 F 05/23/18 19:00 85 13 05/23/18 18:00 90 19 05/23/18 17:00 75 18 05/23/18 16:56 79 24 05/23/18 16:00 99 F 83 83 18 05/23/18 15:43 05/23/18 15:00 82 17 05/23/18 14:58 83 05/23/18 14:37 78 05/23/18 14:36 05/23/18 14:00 75 20 05/23/18 13:00 78 16 05/23/18 12:06 85 05/23/18 12:00 98.5 F 83 83 18 05/23/18 11:59 85 05/23/18 11:58 86 05/23/18 11:00 75 16 Resp BP Pulse Ox 05/24/18 08:00 05/24/18 07:44 99 05/24/18 06:00 144/86 05/24/18 05:00 147/92 95 05/24/18 04:00 144/75 92 05/24/18 03:08 05/24/18 03:00 127/71 97 05/24/18 02:00 140/80 96 05/24/18 01:50 05/24/18 01:46 94 05/24/18 01:41 05/24/18 01:00 153/96 05/24/18 00:00 136/84 90 05/23/18 23:00 170/97 05/23/18 22:56 136/84 95 05/23/18 22:50 168/120 05/23/18 22:08 168/95 05/23/18 22:00 177/103 05/23/18 21:19 177/103 05/23/18 21:00 177/103 05/23/18 20:08 05/23/18 20:00 136/88 90 05/23/18 19:55 93 05/23/18 19:54 05/23/18 19:26 05/23/18 19:00 136/88 97 05/23/18 18:00 146/92 92 05/23/18 17:00 176/101 95 05/23/18 16:56 158/92 94 05/23/18 16:00 158/92 90 05/23/18 15:43 92 05/23/18 15:00 130/75 87 05/23/18 14:58 22 05/23/18 14:37 22 05/23/18 14:36 95 05/23/18 14:00 130/74 96 05/23/18 13:00 115/68 98 05/23/18 12:06 128/78 05/23/18 12:00 127/78 95 05/23/18 11:59 163/93 05/23/18 11:58 163/93 05/23/18 11:00 163/93 95 - Physical Examination General: No Apparent Distress Cardiac: Positive: Reg Rate and Rhythm Lungs: Positive: Decreased Breath Sounds - Labs and Meds Comprehensive Metabolic Panel 05/23/18 Range/Units 16:13 Sodium 144 (137-145) mmol/L Potassium 4.6 (3.6-5.0) mmol/L Chloride 98.8 (98-107) mmol/L Carbon Dioxide 36 H (22-30) mmol/L BUN 32 H (7-17) mg/dL Creatinine 1.0 (0.7-1.2) mg/dL Glucose 204 H (65-100) mg/dL Calcium 9.1 (8.4-10.2) mg/dL - Allied health notes Allied health notes reviewed: RT
[2018-05-24] MEDS: HumaLOG SUB-Q SCH ×2 (12:31→18:02)
[2018-05-24] MEDS: HALDOL IM PRN (14:00)
--- NOTE | 2018-05-24 19:37 | Progress Note ---
Assessment and Plan Patient awake. Resting on high flow O2, Vapotherm 40% FIO2 . O2 saturation 93%. Patient going to go back on BIPAP during night time. Patient morbidly Obese. No acute respiratory distress . - Patient Problems (1) COPD exacerbation Current Visit: Yes Status: Acute Plan to address problem: Patient is on Vapotherm , FIO2 40%. BIPAP 16/8, rate 20, FIO2 60% Albuterol/atrovent aerosol treatments q 6 hours. Continue I/V solumedrol. Continue Levaquin. S/C Lovenox or SCDs Continue famotidine. (2) Pulmonary infiltrate Current Visit: Yes Status: Acute Plan to address problem: Continue Levaquin. (3) Morbid obesity with BMI of 45.0-49.9, adult Current Visit: Yes Status: Acute Plan to address problem: Cosult services coordinator for weight reduction diet. (4) Sleep apnea syndrome Current Visit: Yes Status: Acute Plan to address problem: Patient is on BIPAP 16/8, rate 20, FIO2 60%. (5) CHF (congestive heart failure) Current Visit: Yes Status: Chronic Qualifiers: Plan to address problem: Management as per primary care and cardiology. (6) Hypertension Current Visit: Yes Status: Chronic Qualifiers: Plan to address problem: Mangement as per primary care. (7) T2DM (type 2 diabetes mellitus) Current Visit: Yes Status: Chronic Plan to address problem: Management as per primary care. (8) Acute and chronic respiratory failure with hypercapnia Current Visit: No Status: Acute Plan to address problem: Patient is on Vapotherm , FIO2 40%. BIPAP 16/8, rate 20, FIO2 60% Albuterol/atrovent aerosol treatments q 6 hours. Continue I/V solumedrol. Continue Levaquin. S/C Lovenox or SCDs Continue famotidin (9) Acute kidney injury Current Visit: No Status: Acute Plan to address problem: Management as per nephrology. (10) GERD (gastroesophageal reflux disease) Current Visit: No Status: Acute Qualifiers: Esophagitis presence: without esophagitis Qualified Code(s): K21.9 - Gastro-esophageal reflux disease without esophagitis Plan to address problem: Patient is on famotidine. (11) Sepsis Current Visit: No Status: Acute Plan to address problem: Continue Levaquin. Subjective Date of service: 05/24/18 Principal diagnosis: Acute on chronic hypercapnic, hypoxemic resp failure, AE- COPD, Interval history: Patient awake. Resting on high flow O2, Vapotherm 40% FIO2 . O2 saturation 93%. Patient going to go back on BIPAP during night time. Patient morbidly Obese. No acute respiratory distress . Objective Vital Signs - 12hr 05/24/18 05/24/18 05/24/18 07:44 07:54 08:00 Temperature 97.7 F Pulse Rate 81 Pulse Rate [ 76 80 Anterior Bilateral Throughout] Respiratory 13 Rate Respiratory 18 20 Rate [Anterior Bilateral Throughout] Blood Pressure 148/87 O2 Sat by Pulse 99 93 Oximetry 05/24/18 05/24/18 05/24/18 08:10 09:00 10:00 Temperature Pulse Rate 97 H 81 Pulse Rate [ Anterior Bilateral Throughout] Respiratory 22 19 Rate Respiratory Rate [Anterior Bilateral Throughout] Blood Pressure 145/82 148/86 O2 Sat by Pulse 95 96 92 Oximetry 05/24/18 05/24/18 05/24/18 11:00 12:00 13:00 Temperature 97.6 F Pulse Rate 81 80 89 Pulse Rate [ Anterior Bilateral Throughout] Respiratory 19 25 H 23 Rate Respiratory Rate [Anterior Bilateral Throughout] Blood Pressure 144/86 129/96 129/84 O2 Sat by Pulse 93 93 92 Oximetry 05/24/18 05/24/18 05/24/18 14:00 14:50 15:00 Temperature Pulse Rate 89 94 H Pulse Rate [ 90 91 H Anterior Bilateral Throughout] Respiratory 23 22 Rate Respiratory 20 20 Rate [Anterior Bilateral Throughout] Blood Pressure 117/79 113/86 O2 Sat by Pulse 96 93 Oximetry 05/24/18 05/24/18 05/24/18 16:00 17:00 18:00 Temperature 98.4 F Pulse Rate 98 H 102 H 92 H Pulse Rate [ Anterior Bilateral Throughout] Respiratory 25 H 23 26 H Rate Respiratory Rate [Anterior Bilateral Throughout] Blood Pressure 106/73 118/79 132/87 O2 Sat by Pulse 87 94 97 Oximetry 05/24/18 19:00 Temperature Pulse Rate 92 H Pulse Rate [ Anterior Bilateral Throughout] Respiratory 24 Rate Respiratory Rate [Anterior Bilateral Throughout] Blood Pressure 128/83 O2 Sat by Pulse 96 Oximetry Constitutional: no acute distress, asleep Eyes: non-icteric Neck: supple, no lymphadenopathy Ascultation: Bilateral: diminished breath sounds Cardiovascular: regular rate and rhythm Gastrointestinal: normoactive bowel sounds Integumentary: normal, rash Extremities: no cyanosis, no edema, other (Sleeping at this time.) CBC and BMP: 05/22/18 05:06 05/23/18 16:13 ABG, PT/INR, D-dimer: ABG POC ABG pH 7.377 (7.35-7.45) 05/21/18 05:57 POC ABG pCO2 73.2 (35-45) H 05/21/18 05:57 POC ABG pO2 64 (80-105) L 05/21/18 05:57 POC ABG HCO3 43.0 05/21/18 05:57 POC ABG Total CO2 45 05/21/18 05:57 POC ABG O2 Sat 90 05/21/18 05:57 PT/INR, D-dimer PT 14.1 Sec. (12.2-14.9) 05/19/18 03:30 INR 1.05 (0.87-1.13) 05/19/18 03:30 Abnormal lab findings: Abnormal Labs 05/19/18 05/19/18 05/19/18 03:15 03:30 03:30 RDW 18.2 H Plt Count 126 L Saline % (Auto) 14.0 H Lymph # Saline # 1.1 H Seg Neutrophils % POC ABG pH 7.220 L POC ABG pCO2 94.1 H POC ABG pO2 66 L Sodium Carbon Dioxide 35 H BUN Glucose 114 H POC Glucose CK-MB (CK-2) 5.8 H CK-MB (CK-2) Rel Index 6.1 H Troponin T 0.233 H* NT-Pro-B Natriuret Pep 05/19/18 05/19/18 05/19/18 03:41 05:00 06:39 RDW Plt Count Saline % (Auto) Lymph # Saline # Seg Neutrophils % POC ABG pH 7.244 L POC ABG pCO2 85.3 H POC ABG pO2 Sodium Carbon Dioxide BUN Glucose POC Glucose 112 H CK-MB (CK-2) CK-MB (CK-2) Rel Index Troponin T NT-Pro-B Natriuret Pep 4192 H 05/19/18 05/19/18 05/19/18 06:44 10:12 12:04 RDW Plt Count Saline % (Auto) Lymph # Saline # Seg Neutrophils % POC ABG pH 7.244 L POC ABG pCO2 85.2 H POC ABG pO2 62 L Sodium Carbon Dioxide BUN Glucose POC Glucose 152 H CK-MB (CK-2) 5.8 H CK-MB (CK-2) Rel Index 6.9 H Troponin T 0.197 H* NT-Pro-B Natriuret Pep 05/19/18 05/19/18 05/19/18 13:56 18:26 19:55 RDW Plt Count Saline % (Auto) Lymph # Saline # Seg Neutrophils % POC ABG pH 7.271 L POC ABG pCO2 84.6 H POC ABG pO2 66 L Sodium Carbon Dioxide BUN Glucose POC Glucose 170 H CK-MB (CK-2) 6.1 H CK-MB (CK-2) Rel Index 7.1 H Troponin T 0.138 H* D NT-Pro-B Natriuret Pep 05/19/18 05/20/18 05/20/18 23:31 04:53 05:06 RDW 18.1 H Plt Count Saline % (Auto) Lymph # 0.9 L Saline # Seg Neutrophils % 79.9 H POC ABG pH POC ABG pCO2 POC ABG pO2 Sodium Carbon Dioxide BUN Glucose POC Glucose 168 H 148 H CK-MB (CK-2) CK-MB (CK-2) Rel Index Troponin T NT-Pro-B Natriuret Pep 05/20/18 05/20/18 05/20/18 05:06 11:38 12:13 RDW Plt Count Saline % (Auto) Lymph # Saline # Seg Neutrophils % POC ABG pH 7.303 L POC ABG pCO2 90.0 H POC ABG pO2 Sodium 147 H Carbon Dioxide 35 H BUN 18 H Glucose 171 H POC Glucose 183 H CK-MB (CK-2) CK-MB (CK-2) Rel Index Troponin T NT-Pro-B Natriuret Pep 05/20/18 05/21/18 05/21/18 18:07 00:17 05:03 RDW 18.2 H Plt Count Saline % (Auto) Lymph # Saline # Seg Neutrophils % POC ABG pH POC ABG pCO2 POC ABG pO2 Sodium Carbon Dioxide BUN Glucose POC Glucose 112 H 133 H CK-MB (CK-2) CK-MB (CK-2) Rel Index Troponin T NT-Pro-B Natriuret Pep 05/21/18 05/21/18 05/21/18 05:03 05:28 05:57 RDW Plt Count Saline % (Auto) Lymph # Saline # Seg Neutrophils % POC ABG pH POC ABG pCO2 73.2 H POC ABG pO2 64 L Sodium 152 H Carbon Dioxide 39 H BUN 32 H Glucose 162 H POC Glucose 175 H CK-MB (CK-2) CK-MB (CK-2) Rel Index Troponin T NT-Pro-B Natriuret Pep 05/21/18 05/21/18 05/21/18 11:46 17:02 22:14 RDW Plt Count Saline % (Auto) Lymph # Saline # Seg Neutrophils % POC ABG pH POC ABG pCO2 POC ABG pO2 Sodium Carbon Dioxide BUN Glucose POC Glucose 225 H 120 H 273 H CK-MB (CK-2) CK-MB (CK-2) Rel Index Troponin T NT-Pro-B Natriuret Pep 05/22/18 05/22/18 05/22/18 05:06 05:06 05:20 RDW 19.0 H Plt Count Saline % (Auto) Lymph # Saline # Seg Neutrophils % POC ABG pH POC ABG pCO2 POC ABG pO2 Sodium 151 H Carbon Dioxide 37 H BUN 43 H Glucose 267 H POC Glucose 283 H CK-MB (CK-2) CK-MB (CK-2) Rel Index Troponin T NT-Pro-B Natriuret Pep 05/22/18 05/23/18 05/23/18 17:12 00:40 11:40 RDW Plt Count Saline % (Auto) Lymph # Saline # Seg Neutrophils % POC ABG pH POC ABG pCO2 POC ABG pO2 Sodium Carbon Dioxide BUN Glucose POC Glucose 263 H 240 H 235 H CK-MB (CK-2) CK-MB (CK-2) Rel Index Troponin T NT-Pro-B Natriuret Pep 05/23/18 05/23/18 05/23/18 16:13 17:11 23:27 RDW Plt Count Saline % (Auto) Lymph # Saline # Seg Neutrophils % POC ABG pH POC ABG pCO2 POC ABG pO2 Sodium Carbon Dioxide 36 H BUN 32 H Glucose 204 H POC Glucose 188 H 250 H CK-MB (CK-2) CK-MB (CK-2) Rel Index Troponin T NT-Pro-B Natriuret Pep 05/24/18 05/24/18 05/24/18 05:20 11:36 16:16 RDW Plt Count Saline % (Auto) Lymph # Saline # Seg Neutrophils % POC ABG pH POC ABG pCO2 POC ABG pO2 Sodium Carbon Dioxide BUN Glucose POC Glucose 144 H 211 H 249 H CK-MB (CK-2) CK-MB (CK-2) Rel Index Troponin T NT-Pro-B Natriuret Pep Allied health notes reviewed: RT
[2018-05-24] MEDS: SENOKOT PO SCH (21:40)
[2018-05-24] MEDS: DESYREL PO SCH (21:41)
[2018-05-24] MEDS: SINGULAIR PO SCH (22:00)
[2018-05-24] MEDS: MORPHINE IV PRN (23:17)
[2018-05-25] MEDS: DUONEB *Not for PRN Use IH SCH ×4 (02:57→19:20)
[2018-05-25] MEDS: HumaLOG SUB-Q SCH ×4 (03:32→18:39)
[2018-05-25] MEDS: ISORDIL TITRADOSE PO SCH ×2 (05:01→13:59)
[2018-05-25] MEDS: APRESOLINE PO SCH ×2 (05:02→13:58)
[2018-05-25] MEDS: SOLU-Medrol IV SCH ×2 (05:04→13:59)
[2018-05-25 06:22] LABS: Hematocrit 37.6 % (30.3-42.9); Hemoglobin 11.9 gm/dl (10.1-14.3); Mean Corpuscular HGB Conc 32 % (30-34); Mean Corpuscular Volume 92 fl (79-97); Platelet Count 161 K/mm3 (140-440); Red Blood Count 4.09 M/mm3 (3.65-5.03); Red Cell Distribution Width 17.9 % (13.2-15.2)
[2018-05-25 06:27] LABS: BUN/Creatinine Ratio 31; Blood Urea Nitrogen 22 mg/dL (7-17); Calcium 8.6 mg/dL (8.4-10.2); Hemolysis Index 51
[2018-05-25] MEDS: BROVANA NEBU IH SCH ×2 (09:01→19:21)
[2018-05-25] MEDS: PULMICORT IH SCH ×2 (09:01→19:21)
[2018-05-25] MEDS: MORPHINE IV PRN ×2 (09:31→18:38)
--- NOTE | 2018-05-25 10:23 | Progress Note ---
Addendum entered and electronically signed by ELSA HAIRSTON MD 05/25/18 11:57: Conservative cardiac medical management. Original Note: Assessment and Plan Acute respiratory failure Chronic systolic heart failure COPD on oxygen as an outpatient Dilated Nonischemic Cardiomyopathy [facility] at [facility] in 2013: no significant CAD, EF 45% moderately decrease LVEF 20-25% by echo 08/2017 Chronic elevated troponin, nonspecific Recommend: Fluid/sodium restriction. Continue medical management for heart failure to include diuretics, afterload agents and beta blockers. Conservative cardiac management. Subjective Date of service: 05/25/18 Principal diagnosis: Acute on chronic hypercapnic, hypoxemic resp failure, AE- COPD, Interval history: Patient is resting in bed comfortably. Objective Vital Signs Temp Pulse Pulse Pulse Resp Resp Resp 05/25/18 09:05 05/25/18 08:00 98.0 F 81 80 22 21 05/25/18 07:00 69 20 05/25/18 06:00 72 17 05/25/18 05:10 71 15 05/25/18 05:02 72 05/25/18 05:01 70 05/25/18 04:00 97.0 F L 75 15 05/25/18 03:00 79 18 05/25/18 02:00 81 91 H 20 20 05/25/18 01:00 89 28 H 05/25/18 00:00 98.6 F 91 H 25 H 05/24/18 23:00 89 20 05/24/18 22:00 86 22 05/24/18 21:42 91 H 05/24/18 21:00 89 23 05/24/18 20:51 91 H 20 05/24/18 20:44 05/24/18 20:31 93 H 05/24/18 20:30 90 05/24/18 20:00 96.8 F L 97 H 90 25 H 20 05/24/18 19:20 94 H 24 05/24/18 19:00 92 H 24 05/24/18 18:00 92 H 26 H 05/24/18 17:00 102 H 23 05/24/18 16:00 98.4 F 98 H 25 H 05/24/18 15:00 94 H 91 H 22 20 05/24/18 14:50 90 20 05/24/18 14:00 89 23 05/24/18 13:00 89 23 05/24/18 12:00 97.6 F 80 25 H 05/24/18 11:00 81 19 BP Pulse Ox 05/25/18 09:05 97 05/25/18 08:00 05/25/18 07:00 165/92 96 05/25/18 06:00 166/99 96 05/25/18 05:10 95 05/25/18 05:02 140/78 05/25/18 05:01 140/80 05/25/18 04:00 132/79 95 05/25/18 03:00 150/89 94 05/25/18 02:00 112/71 93 05/25/18 01:00 123/74 94 05/25/18 00:00 142/82 94 05/24/18 23:00 145/77 89 05/24/18 22:00 145/89 96 05/24/18 21:42 136/88 05/24/18 21:00 136/88 95 05/24/18 20:51 05/24/18 20:44 98 05/24/18 20:31 133/78 05/24/18 20:30 114/90 05/24/18 20:00 114/90 92 05/24/18 19:20 128/83 95 05/24/18 19:00 128/83 96 05/24/18 18:00 132/87 97 05/24/18 17:00 118/79 94 05/24/18 16:00 106/73 87 05/24/18 15:00 113/86 93 05/24/18 14:50 05/24/18 14:00 117/79 96 05/24/18 13:00 129/84 92 05/24/18 12:00 129/96 93 05/24/18 11:00 144/86 93 - Physical Examination General: No Apparent Distress HEENT: Positive: PERRL Neck: Positive: trachea midline Cardiac: Positive: Reg Rate and Rhythm Lungs: Positive: Decreased Breath Sounds Extremities: Present: normal - Labs and Meds CBC 05/25/18 Range/Units 05:52 WBC 7.5 (4.5-11.0) K/mm3 RBC 4.09 (3.65-5.03) M/mm3 Hgb 11.9 (10.1-14.3) gm/dl Hct 37.6 (30.3-42.9) % Plt Count 161 (140-440) K/mm3 Comprehensive Metabolic Panel 05/25/18 Range/Units 05:52 Sodium 141 (137-145) mmol/L Potassium 4.7 (3.6-5.0) mmol/L Chloride 98.3 (98-107) mmol/L Carbon Dioxide 37 H (22-30) mmol/L BUN 22 H (7-17) mg/dL Creatinine 0.7 (0.7-1.2) mg/dL Glucose 273 H (65-100) mg/dL Calcium 8.6 (8.4-10.2) mg/dL - Allied health notes Allied health notes reviewed: RT
[2018-05-25] MEDS: DOLOPHINE PO SCH (10:52)
[2018-05-25] MEDS: COLACE PO SCH (10:54)
[2018-05-25] MEDS: CLARITIN PO SCH (10:54)
[2018-05-25] MEDS: ALDACTONE PO SCH (10:54)
[2018-05-25] MEDS: PEPCID PO SCH (10:55)
[2018-05-25] MEDS: ECOTRIN PO SCH (10:55)
[2018-05-25] MEDS: COZAAR PO SCH (10:55)
[2018-05-25] MEDS: LEVAQUIN 750MG/150ML 750 MG/150 ML BAG IV SCH (10:55)
[2018-05-25] MEDS: COREG PO SCH (10:55)
[2018-05-25] MEDS: SODIUM CHLORIDE FLUSH SYRINGE 10 ML IV SCH (10:57)
--- NOTE | 2018-05-25 13:08 | Discharge Summary ---
Providers - Providers Date of Admission: 05/19/18 06:14 Date of discharge: 05/25/18 Attending physician: CRISTELA RUFFIN 05/19/18 06:14 Consult to Physician [CONS] Routine Comment: CALLED OFC/PAGED RONDA 0759/HE CLD 0759 Consulting Provider: ASHANTI DAVIS Physician Instructions: Reason For Exam: copd 05/19/18 06:29 Consult to Physician [CONS] Routine Comment: Consulting Provider: ELSA HAIRSTON Physician Instructions: Reason For Exam: ab ce 05/20/18 09:22 Consult to Dietitian/Nutrition [CONS] Routine Physician Instructions: Reason For Exam: Reason for Consult: Write/Manage Tube Feeding Consult to Dietitian/Nutrition [CONS] Routine Physician Instructions: Assess nutrtn needs, initiate, modify, manage TF Reason For Exam: Reason for Consult: Write/Manage Tube Feeding Reason for Consult: Write/Manage Tube Feeding 05/24/18 18:07 Midline [Consult to PICC Line RN] [CONS] Routine Reason For Exam: Difficulty stick/ Poor vein access Type Line:: Midline Primary care physician: PAMELA YAN Hospitalization Reason for admission: resp failure Condition: Stable Hospital course: 47-year-old female with a history of COPD, dilated ischemic cardiomyopathy, diabetes mellitus type 2, hyperlipidemia, schizophrenia, depression, sleep apnea, bipolar, hypertension, morbid obesity and chronic respiratory failure on home O2 was sent to the emergency room from intermediate for evaluation of shortness of breath, confusion. The patient was admitted with diagnosis of acute on chronic hypoxemic respiratory failure that etiology was multifactorial secondary to COPD and CHF exacerbation as well as SHANIQUE/OHS. The patient was seen by pulmonary and cardiology in consultation. Cardiology opted for conservative medical management of heart failure that included diuretics, afterload agents beta blockers and antiplatelet therapy. Patient has a history of left heart cath and [facility] 2013 with no significant coronary artery disease and EF of 45% mildly decreased LVEF of 20-25% by echocardiogram August 2017. Patient has a chronically elevated troponin and it is nonspecific. With regards to the COPD exacerbation, patient was treated with nebulizer treatments, IV Solu-Medrol and high flow oxygen that has been steadily weaned. Patient was also noted to have pneumonia treated with IV Levaquin. Case management was consulted with regards to the chronic respiratory failure and weaning of oxygen for placement. Case management was able to arrange for LTAC placement and the patient will be discharged. Dedicated discharge time 35 minutes. Disposition: [id number]/TX-[id number] ANOTHER TYPE HLTHCARE Time spent for discharge: 35 - Discharge Diagnoses (1) CO2 retention Status: Acute (2) COPD exacerbation Status: Acute (3) Morbid obesity with BMI of 45.0-49.9, adult Status: Acute (4) Pulmonary infiltrate Status: Acute (5) Sleep apnea syndrome Status: Acute (6) CHF (congestive heart failure) Status: Chronic Qualifiers: (7) Elevated troponin level Status: Chronic (8) Hypertension Status: Chronic Qualifiers: Core Measure Documentation - Palliative Care Palliative Care/ Comfort Measures: Not Applicable - Core Measures Any of the following diagnoses?: none Exam - Constitutional Vitals: Temp Pulse Resp BP Pulse Ox 98.0 F 93 H 22 143/76 97 05/25/18 11:32 05/25/18 10:55 05/25/18 08:00 05/25/18 10:55 05/25/18 09:05 General appearance: Present: no acute distress, well-nourished - EENT Eyes: Present: PERRL ENT: hearing intact, clear oral mucosa - Neck Neck: Present: supple, normal ROM - Respiratory Respiratory effort: normal Respiratory: bilateral: CTA - Cardiovascular Heart Sounds: Present: S1 & S2. Absent: rub, click - Extremities Extremities: pulses symmetrical, No edema Peripheral Pulses: within normal limits - Abdominal General gastrointestinal: Present: soft, non-tender, non-distended, normal bowel sounds Female genitourinary: Present: normal - Integumentary Integumentary: Present: clear, warm, dry - Musculoskeletal Musculoskeletal: gait normal, strength equal bilaterally - Psychiatric Psychiatric: appropriate mood/affect, intact judgment & insight - Neurologic Neurologic: CNII-XII intact, moves all extremities Plan Activity: advance as tolerated Weight Bearing Status: Weight Bear as Tolerated Follow up with: PAMELA YAN MD [Primary Care Provider] - 3-5 Days MAYTE KOVACS MD [Staff Physician] - 7 Days ELSA HAIRSTON MD [Staff Physician] - 7 Days
--- NOTE | 2018-05-25 13:16 | Progress Note ---
Assessment and Plan Patient awake. Resting on high flow O2, Vapotherm 44% FIO2 . O2 saturation 90%. Patient going to go back on BIPAP during night time. Patient morbidly Obese. No acute respiratory distress . - Patient Problems (1) COPD exacerbation Current Visit: Yes Status: Acute Plan to address problem: Patient is on Vapotherm , FIO2 44%. BIPAP 16/8, rate 20, FIO2 50% Albuterol/atrovent aerosol treatments q 6 hours. Continue I/V solumedrol. Continue Levaquin. S/C Lovenox or SCDs Continue famotidine. (2) Pulmonary infiltrate Current Visit: Yes Status: Acute Plan to address problem: Continue Levaquin. (3) Morbid obesity with BMI of 45.0-49.9, adult Current Visit: Yes Status: Acute Plan to address problem: [facility] child and family services specialist for weight reduction diet. (4) Sleep apnea syndrome Current Visit: Yes Status: Acute Plan to address problem: Patient is on BIPAP 16/8, rate 20, FIO2 60%. (5) CHF (congestive heart failure) Current Visit: Yes Status: Chronic Qualifiers: Plan to address problem: Management as per primary care and cardiology. (6) Hypertension Current Visit: Yes Status: Chronic Qualifiers: Plan to address problem: Mangement as per primary care. (7) T2DM (type 2 diabetes mellitus) Current Visit: Yes Status: Chronic Plan to address problem: Management as per primary care. (8) Acute and chronic respiratory failure with hypercapnia Current Visit: No Status: Acute Plan to address problem: Patient is on Vapotherm , FIO2 44%. BIPAP 16/8, rate 20, FIO2 50% Albuterol/atrovent aerosol treatments q 6 hours. Continue I/V solumedrol. Continue Levaquin. S/C Lovenox or SCDs Continue famotidin (9) Acute kidney injury Current Visit: No Status: Acute Plan to address problem: Management as per nephrology. (10) GERD (gastroesophageal reflux disease) Current Visit: No Status: Acute Qualifiers: Esophagitis presence: without esophagitis Qualified Code(s): K21.9 - Gastro-esophageal reflux disease without esophagitis Plan to address problem: Patient is on famotidine. (11) Sepsis Current Visit: No Status: Acute Plan to address problem: Continue Levaquin. Subjective Date of service: 05/25/18 Principal diagnosis: Acute on chronic hypercapnic, hypoxemic resp failure, AE- COPD, Interval history: Patient awake. Resting on high flow O2, Vapotherm 44% FIO2 . O2 saturation 90%. Patient going to go back on BIPAP during night time. Patient morbidly Obese. No acute respiratory distress . Objective Vital Signs - 12hr 05/25/18 05/25/18 05/25/18 02:00 03:00 04:00 Temperature 97.0 F L Pulse Rate 81 79 75 Pulse Rate [ Anterior Bilateral Throughout] Pulse Rate [ 91 H Anterior Bilateral Upper Lobe] Respiratory 20 18 15 Rate Respiratory Rate [Anterior Bilateral Throughout] Respiratory 20 Rate [Anterior Bilateral Upper Lobe] Blood Pressure 112/71 150/89 132/79 O2 Sat by Pulse 93 94 95 Oximetry 05/25/18 05/25/18 05/25/18 05:01 05:02 05:10 Temperature Pulse Rate 70 72 71 Pulse Rate [ Anterior Bilateral Throughout] Pulse Rate [ Anterior Bilateral Upper Lobe] Respiratory 15 Rate Respiratory Rate [Anterior Bilateral Throughout] Respiratory Rate [Anterior Bilateral Upper Lobe] Blood Pressure 140/80 140/78 O2 Sat by Pulse 95 Oximetry 05/25/18 05/25/18 05/25/18 06:00 07:00 08:00 Temperature 98.0 F Pulse Rate 72 69 Pulse Rate [ 81 Anterior Bilateral Throughout] Pulse Rate [ 80 Anterior Bilateral Upper Lobe] Respiratory 17 20 Rate Respiratory 22 Rate [Anterior Bilateral Throughout] Respiratory 21 Rate [Anterior Bilateral Upper Lobe] Blood Pressure 166/99 165/92 O2 Sat by Pulse 96 96 Oximetry 05/25/18 05/25/18 05/25/18 09:05 10:54 10:55 Temperature Pulse Rate 93 H 93 H Pulse Rate [ Anterior Bilateral Throughout] Pulse Rate [ Anterior Bilateral Upper Lobe] Respiratory Rate Respiratory Rate [Anterior Bilateral Throughout] Respiratory Rate [Anterior Bilateral Upper Lobe] Blood Pressure 143/76 143/76 O2 Sat by Pulse 97 Oximetry 05/25/18 11:32 Temperature 98.0 F Pulse Rate Pulse Rate [ Anterior Bilateral Throughout] Pulse Rate [ Anterior Bilateral Upper Lobe] Respiratory Rate Respiratory Rate [Anterior Bilateral Throughout] Respiratory Rate [Anterior Bilateral Upper Lobe] Blood Pressure O2 Sat by Pulse Oximetry Constitutional: no acute distress, alert Eyes: non-icteric Neck: supple, no lymphadenopathy Ascultation: Bilateral: diminished breath sounds Cardiovascular: regular rate and rhythm Gastrointestinal: normoactive bowel sounds Integumentary: normal, rash Extremities: no cyanosis, no edema, other (Sleeping at this time.) Neurologic: other (Patient is sleeping.) Psychiatric: other (Patient sleeping.) CBC and BMP: 05/25/18 05:52 05/25/18 05:52 ABG, PT/INR, D-dimer: ABG POC ABG pH 7.377 (7.35-7.45) 05/21/18 05:57 POC ABG pCO2 73.2 (35-45) H 05/21/18 05:57 POC ABG pO2 64 (80-105) L 05/21/18 05:57 POC ABG HCO3 43.0 05/21/18 05:57 POC ABG Total CO2 45 05/21/18 05:57 POC ABG O2 Sat 90 05/21/18 05:57 PT/INR, D-dimer PT 14.1 Sec. (12.2-14.9) 05/19/18 03:30 INR 1.05 (0.87-1.13) 05/19/18 03:30 Abnormal lab findings: Abnormal Labs 05/19/18 05/19/18 05/19/18 03:15 03:30 03:30 RDW 18.2 H Plt Count 126 L Merrick % (Auto) 14.0 H Lymph # Merrick # 1.1 H Seg Neutrophils % POC ABG pH 7.220 L POC ABG pCO2 94.1 H POC ABG pO2 66 L Sodium Carbon Dioxide 35 H BUN Glucose 114 H POC Glucose CK-MB (CK-2) 5.8 H CK-MB (CK-2) Rel Index 6.1 H Troponin T 0.233 H* NT-Pro-B Natriuret Pep 05/19/18 05/19/18 05/19/18 03:41 05:00 06:39 RDW Plt Count Merrick % (Auto) Lymph # Merrick # Seg Neutrophils % POC ABG pH 7.244 L POC ABG pCO2 85.3 H POC ABG pO2 Sodium Carbon Dioxide BUN Glucose POC Glucose 112 H CK-MB (CK-2) CK-MB (CK-2) Rel Index Troponin T NT-Pro-B Natriuret Pep 4192 H 05/19/18 05/19/18 05/19/18 06:44 10:12 12:04 RDW Plt Count Merrick % (Auto) Lymph # Merrick # Seg Neutrophils % POC ABG pH 7.244 L POC ABG pCO2 85.2 H POC ABG pO2 62 L Sodium Carbon Dioxide BUN Glucose POC Glucose 152 H CK-MB (CK-2) 5.8 H CK-MB (CK-2) Rel Index 6.9 H Troponin T 0.197 H* NT-Pro-B Natriuret Pep 05/19/18 05/19/18 05/19/18 13:56 18:26 19:55 RDW Plt Count Merrick % (Auto) Lymph # Merrick # Seg Neutrophils % POC ABG pH 7.271 L POC ABG pCO2 84.6 H POC ABG pO2 66 L Sodium Carbon Dioxide BUN Glucose POC Glucose 170 H CK-MB (CK-2) 6.1 H CK-MB (CK-2) Rel Index 7.1 H Troponin T 0.138 H* D NT-Pro-B Natriuret Pep 05/19/18 05/20/18 05/20/18 23:31 04:53 05:06 RDW 18.1 H Plt Count Merrick % (Auto) Lymph # 0.9 L Merrick # Seg Neutrophils % 79.9 H POC ABG pH POC ABG pCO2 POC ABG pO2 Sodium Carbon Dioxide BUN Glucose POC Glucose 168 H 148 H CK-MB (CK-2) CK-MB (CK-2) Rel Index Troponin T NT-Pro-B Natriuret Pep 05/20/18 05/20/18 05/20/18 05:06 11:38 12:13 RDW Plt Count Merrick % (Auto) Lymph # Merrick # Seg Neutrophils % POC ABG pH 7.303 L POC ABG pCO2 90.0 H POC ABG pO2 Sodium 147 H Carbon Dioxide 35 H BUN 18 H Glucose 171 H POC Glucose 183 H CK-MB (CK-2) CK-MB (CK-2) Rel Index Troponin T NT-Pro-B Natriuret Pep 05/20/18 05/21/18 05/21/18 18:07 00:17 05:03 RDW 18.2 H Plt Count Merrick % (Auto) Lymph # Merrick # Seg Neutrophils % POC ABG pH POC ABG pCO2 POC ABG pO2 Sodium Carbon Dioxide BUN Glucose POC Glucose 112 H 133 H CK-MB (CK-2) CK-MB (CK-2) Rel Index Troponin T NT-Pro-B Natriuret Pep 05/21/18 05/21/18 05/21/18 05:03 05:28 05:57 RDW Plt Count Merrick % (Auto) Lymph # Merrick # Seg Neutrophils % POC ABG pH POC ABG pCO2 73.2 H POC ABG pO2 64 L Sodium 152 H Carbon Dioxide 39 H BUN 32 H Glucose 162 H POC Glucose 175 H CK-MB (CK-2) CK-MB (CK-2) Rel Index Troponin T NT-Pro-B Natriuret Pep 05/21/18 05/21/18 05/21/18 11:46 17:02 22:14 RDW Plt Count Merrick % (Auto) Lymph # Merrick # Seg Neutrophils % POC ABG pH POC ABG pCO2 POC ABG pO2 Sodium Carbon Dioxide BUN Glucose POC Glucose 225 H 120 H 273 H CK-MB (CK-2) CK-MB (CK-2) Rel Index Troponin T NT-Pro-B Natriuret Pep 05/22/18 05/22/18 05/22/18 05:06 05:06 05:20 RDW 19.0 H Plt Count Merrick % (Auto) Lymph # Merrick # Seg Neutrophils % POC ABG pH POC ABG pCO2 POC ABG pO2 Sodium 151 H Carbon Dioxide 37 H BUN 43 H Glucose 267 H POC Glucose 283 H CK-MB (CK-2) CK-MB (CK-2) Rel Index Troponin T NT-Pro-B Natriuret Pep 05/22/18 05/23/18 05/23/18 17:12 00:40 11:40 RDW Plt Count Merrick % (Auto) Lymph # Merrick # Seg Neutrophils % POC ABG pH POC ABG pCO2 POC ABG pO2 Sodium Carbon Dioxide BUN Glucose POC Glucose 263 H 240 H 235 H CK-MB (CK-2) CK-MB (CK-2) Rel Index Troponin T NT-Pro-B Natriuret Pep 05/23/18 05/23/18 05/23/18 16:13 17:11 23:27 RDW Plt Count Merrick % (Auto) Lymph # Merrick # Seg Neutrophils % POC ABG pH POC ABG pCO2 POC ABG pO2 Sodium Carbon Dioxide 36 H BUN 32 H Glucose 204 H POC Glucose 188 H 250 H CK-MB (CK-2) CK-MB (CK-2) Rel Index Troponin T NT-Pro-B Natriuret Pep 05/24/18 05/24/18 05/24/18 05:20 11:36 16:16 RDW Plt Count Merrick % (Auto) Lymph # Merrick # Seg Neutrophils % POC ABG pH POC ABG pCO2 POC ABG pO2 Sodium Carbon Dioxide BUN Glucose POC Glucose 144 H 211 H 249 H CK-MB (CK-2) CK-MB (CK-2) Rel Index Troponin T NT-Pro-B Natriuret Pep 05/24/18 05/25/18 05/25/18 23:38 05:52 05:52 RDW 17.9 H Plt Count Merrick % (Auto) Lymph # Merrick # Seg Neutrophils % POC ABG pH POC ABG pCO2 POC ABG pO2 Sodium Carbon Dioxide 37 H BUN 22 H Glucose 273 H POC Glucose 106 H CK-MB (CK-2) CK-MB (CK-2) Rel Index Troponin T NT-Pro-B Natriuret Pep 05/25/18 05/25/18 08:53 11:30 RDW Plt Count Merrick % (Auto) Lymph # Merrick # Seg Neutrophils % POC ABG pH POC ABG pCO2 POC ABG pO2 Sodium Carbon Dioxide BUN Glucose POC Glucose 271 H 289 H CK-MB (CK-2) CK-MB (CK-2) Rel Index Troponin T NT-Pro-B Natriuret Pep [facility] notes reviewed: RT
[2018-05-25 18:33] VITALS: BP 120/53
[2018-05-25] MEDS: FLONASE NS SCH (18:39)
[2018-05-25] MEDS: ATIVAN IV PRN (20:27)
== END 2018-05-25 20:25 | DRG 871 ==
LOC: ED 02:59 → SUATTDRO 02:59 → IMCU 06:14 → CC1 11:01 → IMCU 12:30
PROVIDERS: ADMIT Internal Medicine; ATTEND Hospitalist
PROC: 5A09357 Assistance with Respiratory Ventilation, Less than 24 Consecutive Hours, Continuous Positive Airway Pressure (ICD-10-PCS; principal; 2018-05-19)
PROC: 4A033R1 Measurement of Arterial Saturation, Peripheral, Percutaneous Approach (ICD-10-PCS; 2018-05-19)
PROC: 5A09357 Assistance with Respiratory Ventilation, Less than 24 Consecutive Hours, Continuous Positive Airway Pressure (ICD-10-PCS; 2018-05-20)
PROC: 5A09357 Assistance with Respiratory Ventilation, Less than 24 Consecutive Hours, Continuous Positive Airway Pressure (ICD-10-PCS; 2018-05-21)
PROC: 5A09357 Assistance with Respiratory Ventilation, Less than 24 Consecutive Hours, Continuous Positive Airway Pressure (ICD-10-PCS; 2018-05-22)
PROC: 5A09357 Assistance with Respiratory Ventilation, Less than 24 Consecutive Hours, Continuous Positive Airway Pressure (ICD-10-PCS; 2018-05-23)
PROC: 5A09357 Assistance with Respiratory Ventilation, Less than 24 Consecutive Hours, Continuous Positive Airway Pressure (ICD-10-PCS; 2018-05-24)
PROC: 05HY33Z Insertion of Infusion Device into Upper Vein, Percutaneous Approach (ICD-10-PCS; 2018-05-25)
DX: A41.9 Sepsis, unspecified organism (principal); I21.4 Non-ST elevation (NSTEMI) myocardial infarction; J96.22 Acute and chronic respiratory failure with hypercapnia; J18.9 Pneumonia, unspecified organism; J96.21 Acute and chronic respiratory failure with hypoxia; I50.23 Acute on chronic systolic (congestive) heart failure; G92 Toxic encephalopathy; J44.1 Chronic obstructive pulmonary disease with (acute) exacerbation; I42.0 Dilated cardiomyopathy; E87.0 Hyperosmolality and hypernatremia; N17.9 Acute kidney failure, unspecified; E66.2 Morbid (severe) obesity with alveolar hypoventilation; Z68.42 Body mass index [BMI] 45.0-49.9, adult; I11.0 Hypertensive heart disease with heart failure; E11.9 Type 2 diabetes mellitus without complications; E78.5 Hyperlipidemia, unspecified; F20.9 Schizophrenia, unspecified; F31.9 Bipolar disorder, unspecified; Z82.49 Family history of ischemic heart disease and other diseases of the circulatory system; Z90.710 Acquired absence of both cervix and uterus; Z90.49 Acquired absence of other specified parts of digestive tract; Z88.8 Allergy status to other drugs, medicaments and biological substances; Z88.2 Allergy status to sulfonamides; Z79.899 Other long term (current) drug therapy; Z79.51 Long term (current) use of inhaled steroids; Z91.14 Patient's other noncompliance with medication regimen; Z79.82 Long term (current) use of aspirin; Z79.4 Long term (current) use of insulin
CPT/HCPCS: 36415; 36600; 70450; 71045; 80048; 80061; 82550; 82553; 82803; 82962; 83880; 84484; 84703; 85025; 85027; 85610; 85730; 87040; 93005; 93010; 93306; 94640; 94660; 94760; G0378; A9270-GY; J1630; J1650; J1815; J1885; J1940; J1956; J2060; J2270; J2405; J2930; J3370; J3475; J7040

== ENCOUNTER 2018-08-10 17:47 | Inpatient (IN) | payer MEDICARE ==
[2018-08-10] MEDS ORDERED: ATROVENT IH ONE ×2 (19:08→21:42)
[2018-08-10] MEDS ORDERED: PROVENTIL IH ONE ×3 (19:08→21:43)
[2018-08-10] MEDS ORDERED: SOLU-Medrol IV ONE (19:09)
[2018-08-10] MEDS ORDERED: ZOFRAN IV ONE (19:09)
[2018-08-10] MEDS ORDERED: MORPHINE IV ONE (19:09)
--- NOTE | 2018-08-10 19:13 | Emergency Department Report ---
ED General Adult HPI - General Chief complaint: Pain General Stated complaint: PAIN ALL OVER Time Seen by Provider: 08/10/18 18:43 Source: patient, EMS Mode of arrival: Stretcher Limitations: No Limitations - History of Present Illness Initial comments: Patient is 48 years old female, half-way resident with history of morbid obesity, CHF, COPD, hypertension and schizophrenia. Patient presented to the ER via EMS for evaluation of back pain and shortness of breath. EMS stated that patient is on 4 L of seen at home and when they picked tab she was not on her on scene and her oxygen saturation dropped to 80%, patient put on nonrebreather and her oxygen saturation went to 98%. Patient denied any chest pain. Patient is actively coughing in the ER.. Patient denied any fever or chills. No nausea or vomiting. Patient is asking for pain medicine for her back. Patient stated that she had history of chronic back pain. She denied any recent injury. -: This morning - Related Data Home Medications Medication Instructions Recorded Confirmed Last Taken Budesonide [Pulmicort] 0.5 mg IH BID 02/02/18 05/19/18 Unknown Metformin HCl [Glucophage] 1,000 mg PO BID 03/28/18 05/19/18 Unknown Ipratropium/Albuterol Sulfate 1 ampul IH TID 04/26/18 05/19/18 Unknown [DUONEB *Not for PRN Use*] Previous Rx's Medication Instructions Recorded Last Taken Type Acetaminophen [Acetaminophen TAB] 650 mg PO Q4H PRN tablet 05/25/18 Unknown Rx Arformoterol Nebu [Brovana Nebu] 15 mcg IH Q12HRT ml 05/25/18 Unknown Rx Aspirin EC [Aspirin Enteric Coated 325 mg PO QDAY tablet 05/25/18 Unknown Rx TAB] AtorvaSTATin [Lipitor] 40 mg PO QHS tablet 05/25/18 Unknown Rx Budesonide [Pulmicort Respules] 0.5 mg IH Q12HRT nebu 05/25/18 Unknown Rx Carvedilol [Coreg] 6.25 mg PO BID tablet 05/25/18 Unknown Rx Docusate Sodium [Colace CAP] 100 mg PO BID capsule 05/25/18 Unknown Rx Famotidine [Pepcid] 20 mg PO DAILY tablet 05/25/18 Unknown Rx Fluticasone [Flonase] 50 mcg NS BID bottle 05/25/18 Unknown Rx Ipratropium/Albuterol Sulfate 1 ampul IH Q6HRT ampul.neb 05/25/18 Unknown Rx [DUONEB *Not for PRN Use*] Isosorbide Dinitrate [Isordil 20 mg PO Q8H tablet 05/25/18 Unknown Rx Titradose] Loratadine [Claritin] 10 mg PO DAILY tablet 05/25/18 Unknown Rx Losartan [Cozaar] 50 mg PO QDAY tablet 05/25/18 Unknown Rx Methadone [Dolophine] 5 mg PO BID tablet 05/25/18 Unknown Rx Montelukast [Singulair] 10 mg PO QHS tablet 05/25/18 Unknown Rx Polyethylene Glycol 3350 [Miralax 17 gm PO QDAY PRN powd.pack 05/25/18 Unknown Rx 3350] QUEtiapine [SEROquel] 200 mg PO QHS tablet 05/25/18 Unknown Rx Sennosides Tab [Senokot] 17.2 mg PO QHS tablet 05/25/18 Unknown Rx Simple Syrup 30 ml FEEDTUBE PRN PRN oral.liqd 05/25/18 Unknown Rx Sodium Bicarbonate 325 mg FEEDTUBE PRN PRN tablet 05/25/18 Unknown Rx Spironolactone [Aldactone] 25 mg PO QDAY tablet 05/25/18 Unknown Rx hydrALAZINE [Apresoline TAB] 37.5 mg PO Q8H tablet 05/25/18 Unknown Rx methylPREDNISolone Sod Suc 60 mg IV Q8H vial 05/25/18 Unknown Rx [Solu-MEDROL] traZODone [Desyrel] 50 mg PO QHS tablet 05/25/18 Unknown Rx Allergies Allergy/AdvReac Type Severity Reaction Status Date / Time Penicillins Allergy Unknown Verified 03/28/18 09:27 Sulfa (Sulfonamide Allergy Unknown Verified 03/28/18 09:27 Antibiotics) sulfabenzamide Allergy Unknown Verified 03/28/18 09:27 ED Review of Systems ROS: Stated complaint: PAIN ALL OVER Other details as noted in HPI Comment: All other systems reviewed and negative Constitutional: denies: chills, fever Respiratory: cough, orthopnea, shortness of breath, SOB with exertion. denies: wheezing Cardiovascular: denies: chest pain, palpitations, dyspnea on exertion Gastrointestinal: denies: abdominal pain, nausea, vomiting, diarrhea, constipation, hematemesis, melena, hematochezia Musculoskeletal: back pain Neurological: denies: headache ED Past Medical Hx - Past Medical History Previous Medical History?: Yes Hx Hypertension: Yes Hx Heart Attack/AMI: Yes Hx Congestive Heart Failure: Yes Hx Diabetes: No Hx Deep Vein Thrombosis: No Hx Pulmonary Embolism: Yes Hx Liver Disease: No Hx Arthritis: Yes Hx Psychiatric Treatment: Yes (hx of schizophrenia, major depressive disorder) Hx Asthma: Yes Hx COPD: Yes Hx Dementia: Yes Hx HIV: No Additional medical history: Dysphasia. obstructive sleep apnea - Surgical History Past Surgical History?: Yes Hx Pacemaker: No Hx Internal Defibrillator: No Additional Surgical History: Partial hysterectomy. Tracheostomy - Social History Smoking Status: Former Smoker Substance Use Type: None - Medications Home Medications: Home Medications Medication Instructions Recorded Confirmed Last Taken Type Budesonide [Pulmicort] 0.5 mg IH BID 02/02/18 05/19/18 Unknown History Metformin HCl [Glucophage] 1,000 mg PO BID 03/28/18 05/19/18 Unknown History Ipratropium/Albuterol Sulfate 1 ampul IH TID 04/26/18 05/19/18 Unknown History [DUONEB *Not for PRN Use*] Acetaminophen [Acetaminophen TAB] 650 mg PO Q4H PRN tablet 05/25/18 Unknown Rx Arformoterol Nebu [Brovana Nebu] 15 mcg IH Q12HRT ml 05/25/18 Unknown Rx Aspirin EC [Aspirin Enteric Coated 325 mg PO QDAY tablet 05/25/18 Unknown Rx TAB] AtorvaSTATin [Lipitor] 40 mg PO QHS tablet 05/25/18 Unknown Rx Budesonide [Pulmicort Respules] 0.5 mg IH Q12HRT nebu 05/25/18 Unknown Rx Carvedilol [Coreg] 6.25 mg PO BID tablet 05/25/18 Unknown Rx Docusate Sodium [Colace CAP] 100 mg PO BID capsule 05/25/18 Unknown Rx Famotidine [Pepcid] 20 mg PO DAILY tablet 05/25/18 Unknown Rx Fluticasone [Flonase] 50 mcg NS BID bottle 05/25/18 Unknown Rx Ipratropium/Albuterol Sulfate 1 ampul IH Q6HRT ampul.neb 05/25/18 Unknown Rx [DUONEB *Not for PRN Use*] Isosorbide Dinitrate [Isordil 20 mg PO Q8H tablet 05/25/18 Unknown Rx Titradose] Loratadine [Claritin] 10 mg PO DAILY tablet 05/25/18 Unknown Rx Losartan [Cozaar] 50 mg PO QDAY tablet 05/25/18 Unknown Rx Methadone [Dolophine] 5 mg PO BID tablet 05/25/18 Unknown Rx Montelukast [Singulair] 10 mg PO QHS tablet 05/25/18 Unknown Rx Polyethylene Glycol 3350 [Miralax 17 gm PO QDAY PRN powd.pack 05/25/18 Unknown Rx 3350] QUEtiapine [SEROquel] 200 mg PO QHS tablet 05/25/18 Unknown Rx Sennosides Tab [Senokot] 17.2 mg PO QHS tablet 05/25/18 Unknown Rx Simple Syrup 30 ml FEEDTUBE PRN PRN oral.liqd 05/25/18 Unknown Rx Sodium Bicarbonate 325 mg FEEDTUBE PRN PRN tablet 05/25/18 Unknown Rx Spironolactone [Aldactone] 25 mg PO QDAY tablet 05/25/18 Unknown Rx hydrALAZINE [Apresoline TAB] 37.5 mg PO Q8H tablet 05/25/18 Unknown Rx methylPREDNISolone Sod Suc 60 mg IV Q8H vial 05/25/18 Unknown Rx [Solu-MEDROL] traZODone [Desyrel] 50 mg PO QHS tablet 05/25/18 Unknown Rx ED Physical Exam - General Limitations: No Limitations General appearance: alert, in no apparent distress - Head Head exam: Present: atraumatic, normocephalic, normal inspection - Eye Eye exam: Present: normal appearance, PERRL - ENT ENT exam: Present: normal exam, normal orophraynx, mucous membranes moist - Neck Neck exam: Present: normal inspection, full ROM. Absent: tenderness, meningismus, lymphadenopathy, thyromegaly - Respiratory Respiratory exam: Present: wheezes, rales, rhonchi. Absent: stridor, accessory muscle use, decreased breath sounds, prolonged expiratory - Cardiovascular Cardiovascular Exam: Present: regular rate, normal rhythm, normal heart sounds - GI/Abdominal GI/Abdominal exam: Present: soft, normal bowel sounds. Absent: distended, tenderness, guarding, rebound, rigid, organomegaly, mass, bruit, pulsatile mass, hernia - Extremities Exam Extremities exam: Present: normal inspection, full ROM, pedal edema. Absent: calf tenderness - Back Exam Back exam: Present: normal inspection, full ROM. Absent: tenderness, CVA tenderness (R), CVA tenderness (L), muscle spasm, paraspinal tenderness, vertebral tenderness - Neurological Exam Neurological exam: Present: alert, oriented X3, CN II-XII intact - Psychiatric Psychiatric exam: Absent: depressed, agitated, anxious, flat affect, manic, homicidal ideation, suicidal ideation - Skin Skin exam: Present: warm, intact, normal color ED Course Vital Signs 08/10/18 08/10/18 08/10/18 17:55 19:19 19:30 Temperature 98.0 F Pulse Rate 111 H Respiratory 24 25 H Rate Blood Pressure 150/100 O2 Sat by Pulse 98 91 88 Oximetry 08/10/18 08/10/18 08/10/18 19:45 20:00 20:16 Temperature Pulse Rate 98 H 97 H 101 H Respiratory 28 H 31 H 18 Rate Blood Pressure 145/84 145/94 145/94 O2 Sat by Pulse 89 92 89 Oximetry 08/10/18 08/10/18 08/10/18 20:30 20:45 21:00 Temperature Pulse Rate 105 H 98 H 98 H Respiratory 16 34 H 35 H Rate Blood Pressure 145/94 171/117 174/111 O2 Sat by Pulse 86 85 82 L Oximetry 08/10/18 21:16 Temperature Pulse Rate 97 H Respiratory 35 H Rate Blood Pressure 167/110 O2 Sat by Pulse Oximetry ED Medical Decision Making - Lab Data Result diagrams: 08/10/18 20:26 08/10/18 19:38 - EKG Data -: EKG Interpreted by [place] EKG shows normal: sinus rhythm Rate: normal - EKG Data Interpretation: no acute changes - Radiology Data Radiology results: report reviewed Referring Physician: ASHLY MOURA Patient Name: ORIN SOUZA Date of : 1970 Sex: Female Report Date: 2018-08-10 Report Status: Finalized Findings [facility] [address] [place] [address] XRay Report Signed Patient: ORIN SOUZA#: [id number] : 1970 Acct:[id number] Age/Sex: 48 / F ADM Date: 08/10/18 Loc: ED Attending Dr: Ordering Physician: ASHLY MOURA Date of Service: 08/10/18 Procedure(s): XR chest routine 2V Accession Number(s): [id number] cc: ASHLY MOURA Fluoro Time In Minutes: PROCEDURE: XR CHEST ROUTINE 2V TECHNIQUE: PA and lateral chest radiographs were obtained. HISTORY: WEAK COMPARISONS: 05/19/2018. FINDINGS: Heart: Normal. Mediastinum/Vessels: Stable prominent right hilum may related to vascular prominence or adenopathy. Lungs/Pleural space: No airspace infiltrate or effusion. Bony thorax: No acute osseous abnormality. IMPRESSION: No significant change compared to prior study. Prominent torsten may related to adenopathy or vascular prominence. This document is electronically signed by Roseline Stephens MD., August 10 2018 08:24:26 PM ET Transcribed By: [facility] Dictated By: ROSELINE STEPHENS M.D. Electronically Authenticated By: ROSELINE STEPHENS M.D. Signed Date/Time: 08/10/182025 DD/ 06 TD/TT: 08/10/181906 - Medical Decision Making Patient is 48 years old female, half-way resident with history of morbid obesity, CHF, COPD, hypertension and schizophrenia. Patient presented to the ER via EMS for evaluation of back pain and shortness of breath. EMS stated that patient is on 4 L of seen at home and when they picked tab she was not on her on scene and her oxygen saturation dropped to 80%, patient put on nonrebreather and her oxygen saturation went to 98%. Patient denied any chest pain. Patient is actively coughing in the ER.. Patient denied any fever or chills. No nausea or vomiting. Patient is asking for pain medicine for her back. Patient stated that she had history of chronic back pain. She denied any recent injury. Patient received albuterol/Atrovent, Solu-Medrol and Lasix. Patient stated that she is feeling better. EKG no ST elevation. Chest x-ray shows CHF. I discussed the patient is , he agreed to admit the patient to medical service. Critical Care Time: Yes Critical care time in (mins) excluding proc time.: 30 Critical care attestation.: If time is entered above; I have spent that time in minutes in the direct care of this critically ill patient, excluding procedure time. ED Disposition Clinical Impression: Acute exacerbation of CHF (congestive heart failure), COPD exacerbation Disposition: OP ADMIT IP TO THIS HOSP Is pt being admited?: Yes Condition: Stable Instructions: Chronic Obstructive Pulmonary Disease (ED) Referrals: CORINNE HALL MD [Primary Care Provider] - 3-5 Days
[2018-08-10 20:03] LABS: Hematocrit TNR % (30.3-42.9); Hemoglobin TNR gm/dl (10.1-14.3); Mean Corpuscular HGB Conc TNR % (30-34); Mean Corpuscular Volume TNR fl (79-97); Red Blood Count TNR M/mm3 (3.65-5.03); Red Cell Distribution Width TNR % (13.2-15.2)
[2018-08-10 20:04] LABS: Mean Platelet Volume TNR fl (6-12); Platelet Count TNR K/mm3 (140-440)
[2018-08-10 20:14] LABS: Albumin 3.8 g/dL (3.9-5)
--- NOTE | 2018-08-10 20:26 | XRay Report ---
PROCEDURE: XR CHEST ROUTINE 2V TECHNIQUE: PA and lateral chest radiographs were obtained. HISTORY: WEAK COMPARISONS: 05/19/2018. FINDINGS: Heart: Normal. Mediastinum/Vessels: Stable prominent right hilum may related to vascular prominence or adenopathy. Lungs/Pleural space: No airspace infiltrate or effusion. Bony thorax: No acute osseous abnormality. IMPRESSION: No significant change compared to prior study. Prominent torsten may related to adenopathy or vascular prominence. This document is electronically signed by Roseline Stephens MD., August 10 2018 08:24:26 PM ET
[2018-08-10] MEDS ORDERED: LASIX IV ONE (20:31)
[2018-08-10 20:38] LABS: Basophils # (Auto) 0.1 K/mm3 (0.0-0.1); Basophils % (Auto) 0.8 % (0.0-1.8); Hematocrit 42.9 % (30.3-42.9); Hemoglobin 13.6 gm/dl (10.1-14.3); Lymphocytes # (Auto) 1.7 K/mm3 (1.2-5.4); Lymphocytes % (Auto) 14.9 % (13.4-35.0); Mean Corpuscular HGB Conc 32 % (30-34); Mean Corpuscular Volume 98 fl (79-97); Monocytes # (Auto) 1.5 K/mm3 (0.0-0.8); Platelet Count 225 K/mm3 (140-440); Red Cell Distribution Width 18.7 % (13.2-15.2)
[2018-08-10 21:10] LABS: Chol/HDL Ratio 2.17 %
[2018-08-10] MEDS ORDERED: MORPHINE ONE (21:38)
[2018-08-10] MEDS ORDERED: SOLU-Medrol ONE (21:38)
[2018-08-10] MEDS ORDERED: ZOFRAN ONE (21:39)
[2018-08-10] MEDS ORDERED: HumuLIN R IV ONE (22:06)
[2018-08-10 22:52] LABS: Amorphous Crystals,Urine 2+; Bilirubin,Urine NEG (Negative); Blood,Urine LG (Negative); Color,Urine Yellow (Yellow); Mucus,Urine 1+ /HPF; Urobilinogen,Urine < 2.0 mg/dL (<2.0)
[2018-08-10] MEDS ORDERED: NITROSTAT SL PRN (23:52)
[2018-08-10] MEDS ORDERED: ZOFRAN IV PRN (23:58)
[2018-08-11 01:32] LABS: Creatine Kinase MB 6.9 ng/mL (0.0-4.0)
[2018-08-11] MEDS ORDERED: HEPARIN 10,000 UNITS/10 ML IV ONE (02:16)
[2018-08-11] MEDS ORDERED: HEPARIN/ 0.45% NACL-25,000 UNIT/500 ML 25,000 UNIT/500 ML BAG IV SCH (03:00)
[2018-08-11] MEDS ORDERED: D50W (25GM) Syringe IV PRN (05:10)
[2018-08-11] MEDS: NITRO-BID 2% TP SCH ×4 (06:02→18:15)
[2018-08-11] MEDS: SOLU-Medrol IV SCH ×3 (06:03→22:10)
[2018-08-11 06:10] LABS: Hematocrit 43.6 % (30.3-42.9); Hemoglobin 13.7 gm/dl (10.1-14.3)
[2018-08-11 06:19] LABS: INR 0.97 (0.87-1.13)
[2018-08-11 06:21] LABS: Partial Thromboplastin Time 57.9 Sec. (24.2-36.6)
[2018-08-11] MEDS: HumaLOG SUB-Q SCH ×5 (06:47→22:10)
[2018-08-11 08:01] LABS: Creatine Kinase MB 6.4 ng/mL (0.0-4.0)
--- NOTE | 2018-08-11 08:06 | History and Physical Report ---
CHIEF COMPLAINT: Generalized body pain. OTHER COMPLAINT: Include shortness of breath. HISTORY OF PRESENT ILLNESS: The patient is a 48-year-old female, who came in with generalized body pain and shortness of breath. She has no history of chest pain. There is also history of cough and the patient says that cough is productive of yellow sputum. There is no history of nausea or vomiting. There is history of back pain and pain in the buttocks area. The patient says she has history of chronic back pain. There is no history of recent trauma. PAST MEDICAL HISTORY: Pertinent for hypertension, congestive heart failure, pulmonary embolism, arthritis, psychiatric illness like schizophrenia and major depressive disorder. Also, the patient has past medical history of asthma, COPD, dementia, dysphagia and obstructive sleep apnea. PAST SURGICAL HISTORY: Pertinent for partial hysterectomy and tracheostomy. FAMILY HISTORY: Family history is noncontributory. SOCIAL HISTORY: The patient is a former cigarette smoker, but does not smoke currently. MEDICATIONS: The patient is on the following medications Pulmicort 0.5 mg twice daily, metformin 1000 mg by mouth twice daily, DuoNeb nebulizer 1 by inhalation 3 times daily, Tylenol 650 mg by mouth every 4 hours as needed for pain and fever and headache. The patient is also on Brovana 15 mcg by inhalation q. 12, aspirin 325 mg by mouth daily, Lipitor 40 mg by mouth at bedtime. The patient is on carvedilol 6.25 mg by mouth twice daily, docusate sodium 100 mg by mouth daily, Pepcid 20 mg by mouth daily, Flonase 50 mcg nasally twice daily, DuoNeb nebulizer 1 by inhalation q. 6 hours. The patient is also on isosorbide dinitrate or Isordil 20 mg by mouth every 8 hours and loratadine or Claritin 10 mg by mouth daily. The patient is on Cozaar 50 mg by mouth daily and Dolophine 5 mg by mouth daily. The patient is on Singulair 10 mg by mouth at bedtime and MiraLax 17 g by mouth daily as needed for constipation. Also, the patient is on Seroquel 200 mg at bedtime and Senokot 17.2 mg by mouth at bedtime. Also, the patient is on sodium bicarbonate 325 mg as needed and also on hydralazine every 8 hours, dose is not clear. The patient is on troxidone 50 mg by mouth at bedtime and Solu-Medrol 60 mg IV q. 8 hours, is not clear how long the patient has been on IV Solu-Medrol. ALLERGIES: THE PATIENT IS ALLERGIC TO PENICILLINS AND SULFA DRUGS. REVIEW OF SYSTEMS: CONSTITUTIONAL: There is no fever, no chills, no diaphoresis. HEENT: There is no headache or sore throat. CARDIOVASCULAR SYSTEM: There is no chest pain or orthopnea. RESPIRATORY SYSTEM: There is shortness of breath and there is cough. GASTROINTESTINAL SYSTEM: There is no nausea, no vomiting, no abdominal pain, diarrhea or constipation. NEUROLOGICAL SYSTEM: There is no numbness, no dizziness, no altered mental status. MUSCULOSKELETAL SYSTEM: There is no joint pain or swelling. DERMATOLOGICAL SYSTEM: There is no skin rash or itching. GENITOURINARY SYSTEM: There is no dysuria, hematuria or flank pain. Rest of system review is normal. PHYSICAL EXAMINATION: GENERAL: At the time of exam, the patient was found to be alert, oriented x 3 and not in acute distress. VITAL SIGNS: At the initial time of presentation showed temperature of 98 degrees Fahrenheit, pulse of 111, respiratory rate of 24, blood pressure of 150/100, O2 sat 98% on room air. HEENT: Shows pupils to be equal, round, reactive to light and accommodating. Extraocular muscles are intact. NECK: Neck is supple with no JVD or carotid bruits. CARDIOVASCULAR SYSTEM: Show normal first and second heart sounds with no gallops or murmurs. RESPIRATORY SYSTEM: Show reduced air entry on both sides of the lung with bibasilar rales. GASTROINTESTINAL SYSTEM: Show abdomen to be full, soft, nontender with no organomegaly or rigidity. NEUROLOGICAL: Shows no focal deficit. MUSCULOSKELETAL SYSTEM: Show no joint swelling or tenderness. DERMATOLOGICAL SYSTEM: Show no skin rash. GENITOURINARY SYSTEM: Showing no costovertebral angle tenderness. PERTINENT LABORATORY AND IMAGING STUDIES: The patient had chest x-ray done that shows no acute cardiopulmonary lesion and the patient has lab done with a CBC showing elevated white count of 11,600 with normal hemoglobin and normal hematocrit with CBC differential showing elevated segmented neutrophil count of 71.3%. The patient's chemistry showed slightly elevated potassium level of 5.2 with a low chloride level of 95.1 and elevated CO2 of 37 and the patient's glucose level was high with a value of 354. The patient's cardiac enzymes show elevated troponin level of 0.154 and brain natriuretic peptide level is high with a value of 3867. The patient's lipid panel show elevated HDL of 80 with a low LDL cholesterol. The patient's urinalysis showed yellow turbid urine with large urine leukocyte esterase and elevated urine wbc's of 74 and elevated urine rbc's of 10 with negative urine nitrite and normal urine epithelial cells. DIAGNOSES: 1. Congestive heart failure exacerbation. 2. Chronic obstructive pulmonary disease exacerbation. 3. Elevated troponin level. 4. Urinary tract infection. 5. Sacral decubitus ulcer. PLAN OF CARE: 1. The patient will be admitted to telemetry. 2. The patient will have a serial cardiac enzymes involving troponin, total CK and CK-MB checked q. 6 hours x 2 more levels. 3. The patient will be on heparin per NSTEMI protocol. 4. The patient will have Cardiology consult with Dr. Fernandes because cause of elevated troponin level and CHF exacerbation. 5. The patient will remain n.p.o. until seen by the baked and graphite inspector. 6. The patient will be on Tylenol 650 mg by mouth every 4 hours for fever and headache and will be on home medication as shown in the medication reconciliation section. 7. The patient will be on DuoNeb nebulizer q.i.d. and will be on IV Levaquin 750 mg daily. 8. The patient will be on IV Solu-Medrol 60 mg IV q. 8 hours, will be on Zofran IV 4 mg q. 8 hours for nausea and vomiting. 9. The patient will be on nitro paste half inch to anterior chest wall q.i.d. 10. The patient will be on oxygen by nasal cannula at 2 liters per minute. 11. The patient will have 2D echo done this morning. JOB# [id number] OCN/NTS
[2018-08-11] MEDS: DUONEB *Not for PRN Use IH SCH ×4 (08:15→20:34)
[2018-08-11] MEDS: PULMICORT IH SCH ×2 (08:15→20:34)
[2018-08-11] MEDS: BROVANA NEBU IH SCH ×2 (08:15→20:34)
[2018-08-11] MEDS ORDERED: HEPARIN SUB-Q SCH (10:00)
[2018-08-11] MEDS: COLACE PO SCH ×2 (10:08→22:09)
--- NOTE | 2018-08-11 10:34 | Consultation ---
History of Present Illness Consult date: 08/11/18 History of present illness: Patient is a 48 year old woman who resides in a [facility] and has multiple medical problems. She has a history of COPD and is on chronic oxygen therapy. She is on medical therapy for a chronic systolic heart failure and nonischemic cardiomyopathy. In 2013, a cardiac cath at [facility] revealed normal coronaries, EF 45%. A follow up echocardiogram 3 months ago reports evidence of moderate pulmonary hypertension, RVSP of 43 mmHg. There was a mildly decrease left ventricular systolic function with an ejection fraction 40-45%. Patient was sent to this hospital with complaints of generalized pain. On EMS arrival, she was found hypoxic with oxygen saturation of 82%, admitted for further management. Patient denies chest pain, unusual shortness of breath and palpitations. Noted with coughs and fever today. Chest x-ray reports stable prominent right hilum. No evidence of interstitial edema. Medications and Allergies Allergies Allergy/AdvReac Type Severity Reaction Status Date / Time Penicillins Allergy Unknown Verified 03/28/18 09:27 Sulfa (Sulfonamide Allergy Unknown Verified 03/28/18 09:27 Antibiotics) sulfabenzamide Allergy Unknown Verified 03/28/18 09:27 Home Medications Medication Instructions Recorded Confirmed Last Taken Type Budesonide [Pulmicort] 0.5 mg IH BID 02/02/18 05/19/18 Unknown History Metformin HCl [Glucophage] 1,000 mg PO BID 03/28/18 05/19/18 Unknown History Ipratropium/Albuterol Sulfate 1 ampul IH TID 04/26/18 05/19/18 Unknown History [DUONEB *Not for PRN Use*] Acetaminophen [Acetaminophen TAB] 650 mg PO Q4H PRN tablet 05/25/18 Unknown Rx Arformoterol Nebu [Brovana Nebu] 15 mcg IH Q12HRT ml 05/25/18 Unknown Rx Aspirin EC [Aspirin Enteric Coated 325 mg PO QDAY tablet 05/25/18 Unknown Rx TAB] AtorvaSTATin [Lipitor] 40 mg PO QHS tablet 05/25/18 Unknown Rx Budesonide [Pulmicort Respules] 0.5 mg IH Q12HRT nebu 05/25/18 Unknown Rx Carvedilol [Coreg] 6.25 mg PO BID tablet 05/25/18 Unknown Rx Docusate Sodium [Colace CAP] 100 mg PO BID capsule 05/25/18 Unknown Rx Famotidine [Pepcid] 20 mg PO DAILY tablet 05/25/18 Unknown Rx Fluticasone [Flonase] 50 mcg NS BID bottle 05/25/18 Unknown Rx Ipratropium/Albuterol Sulfate 1 ampul IH Q6HRT ampul.neb 05/25/18 Unknown Rx [DUONEB *Not for PRN Use*] Isosorbide Dinitrate [Isordil 20 mg PO Q8H tablet 05/25/18 Unknown Rx Titradose] Loratadine [Claritin] 10 mg PO DAILY tablet 05/25/18 Unknown Rx Losartan [Cozaar] 50 mg PO QDAY tablet 05/25/18 Unknown Rx Methadone [Dolophine] 5 mg PO BID tablet 05/25/18 Unknown Rx Montelukast [Singulair] 10 mg PO QHS tablet 05/25/18 Unknown Rx Polyethylene Glycol 3350 [Miralax 17 gm PO QDAY PRN powd.pack 05/25/18 Unknown Rx 3350] QUEtiapine [SEROquel] 200 mg PO QHS tablet 05/25/18 Unknown Rx Sennosides Tab [Senokot] 17.2 mg PO QHS tablet 05/25/18 Unknown Rx Simple Syrup 30 ml FEEDTUBE PRN PRN oral.liqd 05/25/18 Unknown Rx Sodium Bicarbonate 325 mg FEEDTUBE PRN PRN tablet 05/25/18 Unknown Rx Spironolactone [Aldactone] 25 mg PO QDAY tablet 05/25/18 Unknown Rx hydrALAZINE [Apresoline TAB] 37.5 mg PO Q8H tablet 05/25/18 Unknown Rx methylPREDNISolone Sod Suc 60 mg IV Q8H vial 05/25/18 Unknown Rx [Solu-MEDROL] traZODone [Desyrel] 50 mg PO QHS tablet 05/25/18 Unknown Rx Active Meds: Active Medications Acetaminophen (Tylenol) 650 mg PO Q4H PRN PRN Reason: Fever >101 Albuterol/Ipratropium (Duoneb *Not For Prn Use*) 1 ampul IH QIDRT [facility] Last Admin: 08/11/18 08:15 Dose: 1 ampul Documented by: Arformoterol Tartrate (Blayne Holloway) 15 mcg IH Q12HRT [facility] Last Admin: 08/11/18 08:15 Dose: 15 mcg Documented by: Aspirin (Ecotrin) 325 mg PO QDAY [facility] Atorvastatin Calcium (Lipitor) 40 mg PO QHS [facility] Budesonide (Pulmicort) 0.5 mg IH BIDRT [facility] Last Admin: 08/11/18 08:15 Dose: 0.5 mg Documented by: Carvedilol (Coreg) 6.25 mg PO BID [facility] Dextrose (D50w (25gm) Syringe) 50 ml IV PRN PRN PRN Reason: Hypoglycemia Docusate Sodium (Colace) 100 mg PO BID JOE Furosemide (Lasix) 40 mg IV QDAY [facility] Guaifenesin (Robitussin) 200 mg PO Q4H PRN PRN Reason: Cough Levofloxacin/Dextrose (Levaquin 750mg/150ml) 750 mg in 150 mls @ 100 mls/hr IV Q24HR [facility]; Protocol Heparin Sodium/Sodium Chloride (Heparin/ 0.45% Nacl-25,000 Unit/500 Ml) 25,000 unit in 500 mls @ 20 mls/hr IV TITRATE [facility]; Protocol Last Admin: 08/11/18 04:04 Dose: 1,000 units/hr, 20 mls/hr Documented by: Insulin Human Lispro (Humalog) 0 unit SUB-Q Q4H [facility]; Protocol Last Admin: 08/11/18 06:47 Dose: 3 unit Documented by: Methylprednisolone Sodium Succinate (Solu-Medrol) 60 mg IV Q8HR [facility] Last Admin: 08/11/18 06:03 Dose: 60 mg Documented by: Nitroglycerin (Nitrostat) 0.4 mg SL .Q5MIN PRN PRN Reason: Chest Pain Nitroglycerin (Nitro-Bid 2%) 0.5 inch TP QIDNTG [facility]; Protocol Last Admin: 08/11/18 06:02 Dose: 0.5 inch Documented by: Ondansetron HCl (Zofran) 4 mg IV Q8H PRN PRN Reason: Nausea And Vomiting Physical Examination Vital Signs Temp Pulse Resp BP Pulse Ox 98.0 F 111 H 24 150/100 98 08/10/18 17:55 08/10/18 17:55 08/10/18 17:55 08/10/18 17:55 08/10/18 17:55 General appearance: no acute distress HEENT: Positive: PERRL Results 08/11/18 04:53 08/10/18 19:38 Cardiac Enzymes 08/10/18 08/11/18 08/11/18 Range/Units 19:38 01:03 05:01 AST 14 (5-40) units/L CK-MB (CK-2) 6.9 H 6.4 H (0.0-4.0) ng/mL Coagulation 08/11/18 Range/Units 05:01 PT 13.5 (12.2-14.9) Sec. INR 0.97 (0.87-1.13) APTT 57.9 H (24.2-36.6) Sec. Lipids 08/10/18 Range/Units 19:38 Triglycerides 122 (2-149) mg/dL Cholesterol 174 (50-199) mg/dL HDL Cholesterol 80 H (40-59) mg/dL Cholesterol/HDL Ratio 2.17 % CBC 08/10/18 08/10/18 08/11/18 Range/Units 19:38 20:26 04:53 WBC TNR 11.6 H RBC TNR 4.40 Hgb TNR 13.6 13.7 Hct TNR 42.9 43.6 H Plt Count TNR 225 222 Lymph # 1.7 (1.2-5.4) K/mm3 [place] # 1.5 H (0.0-0.8) K/mm3 Eos # 0.0 (0.0-0.4) K/mm3 Baso # 0.1 (0.0-0.1) K/mm3 Comprehensive Metabolic Panel 08/10/18 Range/Units 19:38 Sodium 142 (137-145) mmol/L Potassium 5.2 H (3.6-5.0) mmol/L Chloride 95.1 L (98-107) mmol/L Carbon Dioxide 37 H (22-30) mmol/L BUN 20 H (7-17) mg/dL Creatinine 1.2 (0.7-1.2) mg/dL Glucose 354 H (65-100) mg/dL Calcium 9.0 (8.4-10.2) mg/dL AST 14 (5-40) units/L ALT 28 (7-56) units/L Alkaline Phosphatase 63 (35-129) units/L Total Protein 6.4 (6.3-8.2) g/dL Albumin 3.8 L (3.9-5) g/dL Assessment and Plan Acute respiratory failure Fever Chronic systolic heart failure COPD on oxygen as an outpatient Dilated Nonischemic Cardiomyopathy LHC at [facility] in 2013: no significant CAD, EF 45% EF 40-45% by echo 04/2018 Chronic elevated troponin, nonspecific Recommend: Fluid/sodium restriction. Continue medical management for heart failure to include diuretics, afterload agents and beta blockers. Conservative cardiac management.
[2018-08-11] MEDS: LEVAQUIN 750MG/150ML 750 MG/150 ML BAG IV SCH (13:30)
[2018-08-11] MEDS: LASIX IV SCH (14:06)
[2018-08-11] MEDS: COREG PO SCH ×2 (14:07→22:09)
[2018-08-11] MEDS: ECOTRIN PO SCH (14:08)
[2018-08-11] MEDS: TYLENOL PO PRN ×2 (18:15→22:09)
[2018-08-11] MEDS: ROBITUSSIN PO PRN (18:15)
--- NOTE | 2018-08-11 18:16 | Progress Note ---
Assessment and Plan Assessment and plan: --Acute exacerbation of COPD ; oxygen titrate O2 sats to more than 90% Nebulizers, IV steroids, IV antibiotics, pulmonary consult if needed --Generalized body pains;Continue supportive care --Acute on chronic systolic congestive heart failure; Continue anti-failure medications --Nonischemic cardiomyopathy; ejection fraction 40-45% in April2018 Continue anti-failure medications --Chronic elevation cardiac enzymes; nonspecific Cardiology does not recommend ischemic workup at this point --Urinary tract infection; empiric antibiotics, follow cultures --History of schizophrenia; patient medications Consult psych if needed --DVT prophylaxis; Lovenox Monitor the patient closely and adjust management as needed Closely monitor the patient and adjust management as needed History Interval history: Patient seen and examined medical records reviewed Admitted with atypical chest pain and positive troponins Patient feels slightly better this morning alert awake oriented Vital signs reviewed Cardiology evaluation and recommendation noted and appreciated Hospitalist Physical - Constitutional Vitals: Temp Pulse Resp BP Pulse Ox 100.3 F H 102 H 20 146/76 95 08/11/18 07:47 08/11/18 17:00 08/11/18 16:12 08/11/18 07:47 08/11/18 11:41 General appearance: Present: no acute distress, well-nourished, obese (morbidly obese) - EENT Eyes: Present: PERRL, EOM intact - Neck Neck: Present: supple, normal ROM - Respiratory Respiratory effort: normal Respiratory: bilateral: diminished, negative: rales, rhonchi, wheezing - Cardiovascular Rhythm: regular Heart Sounds: Present: S1 & S2 - Extremities Extremities: no ischemia, No edema - Abdominal General gastrointestinal: soft, non-tender, non-distended, normal bowel sounds - Integumentary Integumentary: Present: clear, warm - Psychiatric Psychiatric: appropriate mood/affect, cooperative - Neurologic Neurologic: CNII-XII intact, moves all extremities Results - Labs CBC & Chem 7: 08/11/18 04:53 08/10/18 19:38 Labs: Laboratory Last Values WBC 11.6 K/mm3 (4.5-11.0) H 08/10/18 20:26 RBC 4.40 M/mm3 (3.65-5.03) 08/10/18 20:26 Hgb 13.7 gm/dl (10.1-14.3) 08/11/18 04:53 Hct 43.6 % (30.3-42.9) H 08/11/18 04:53 MCV 98 fl (79-97) H 08/10/18 20: MCH 31 pg (28-32) 08/10/18 20:26 MCHC 32 % (30-34) 08/10/18 20:26 RDW 18.7 % (13.2-15.2) H 08/10/18 20:26 Plt Count 222 K/mm3 (140-440) 08/11/18 04:53 Lymph % (Auto) 14.9 % (13.4-35.0) 08/10/18 20: [place] % (Auto) 13.0 % (0.0-7.3) H 08/10/18 20: Eos % (Auto) 0.0 % (0.0-4.3) 08/10/18 20:26 Baso % (Auto) 0.8 % (0.0-1.8) 08/10/18 20: Lymph # 1.7 K/mm3 (1.2-5.4) 08/10/18 20:26 [place] # 1.5 K/mm3 (0.0-0.8) H 08/10/18 20: Eos # 0.0 K/mm3 (0.0-0.4) 08/10/18 20: Baso # 0.1 K/mm3 (0.0-0.1) 08/10/18 20:26 Seg Neutrophils % 71.3 % (40.0-70.0) H 08/10/18 20: Seg Neutrophils # 8.3 K/mm3 (1.8-7.7) H 08/10/18 20:26 PT 13.5 Sec. (12.2-14.9) 08/11/18 05:01 INR 0.97 (0.87-1.13) 08/11/18 05:01 APTT 57.9 Sec. (24.2-36.6) H 08/11/18 05:01 Heparin Anti-Xa Level < 0.10 U.I./ml (0.3-0.7) L 08/11/18 11:08 Sodium 142 mmol/L (137-145) 08/10/18 19:38 Potassium 5.2 mmol/L (3.6-5.0) H 08/10/18 19:38 Chloride 95.1 mmol/L (98-107) L 08/10/18 19:38 Carbon Dioxide 37 mmol/L (22-30) H 08/10/18 19:38 Anion Gap 15 mmol/L 08/10/18 19:38 BUN 20 mg/dL (7-17) H 08/10/18 19:38 Creatinine 1.2 mg/dL (0.7-1.2) 08/10/18 19:38 Estimated GFR 58 ml/min 08/10/18 19:38 BUN/Creatinine Ratio 17 % 08/10/18 19:38 Glucose 354 mg/dL (65-100) H 08/10/18 19:38 POC Glucose 299 (70-105) H 08/11/18 17:32 Calcium 9.0 mg/dL (8.4-10.2) 08/10/18 19:38 Total Bilirubin 0.20 mg/dL (0.1-1.2) 08/10/18 19:38 AST 14 units/L (5-40) 08/10/18 19:38 ALT 28 units/L (7-56) 08/10/18 19:38 Alkaline Phosphatase 63 units/L (35-129) 08/10/18 19:38 Total Creatine Kinase 167 units/L (30-135) H 08/11/18 05:01 CK-MB (CK-2) 6.4 ng/mL (0.0-4.0) H 08/11/18 05:01 CK-MB (CK-2) Rel Index 3.8 (0-4) 08/11/18 05:01 Troponin T 0.111 ng/mL (0.00-0.029) H* D 08/11/18 05:01 NT-Pro-B Natriuret Pep 3867 pg/mL (0-450) H 08/10/18 19:38 Total Protein 6.4 g/dL (6.3-8.2) 08/10/18 19:38 Albumin 3.8 g/dL (3.9-5) L 08/10/18 19:38 Albumin/Globulin Ratio 1.5 % 08/10/18 19:38 Triglycerides 122 mg/dL (2-149) 08/10/18 19:38 Cholesterol 174 mg/dL (50-199) 08/10/18 19:38 LDL Cholesterol Direct 84 mg/dL (50-130) 08/10/18 19:38 HDL Cholesterol 80 mg/dL (40-59) H 08/10/18 19:38 Cholesterol/HDL Ratio 2.17 % 08/10/18 19:38 Urine Color Yellow (Yellow) 08/10/18 22:32 Urine Turbidity Turbid (Clear) 08/10/18 22:32 Urine pH 6.0 (5.0-7.0) 08/10/18 22:32 Ur Specific [place] 1.023 (1.003-1.030) 08/10/18 22:32 Urine Protein 100 mg/dl mg/dL (Negative) 08/10/18 22:32 Urine Glucose (UA) >=500 mg/dL (Negative) 08/10/18 22:32 Urine Ketones Neg mg/dL (Negative) 08/10/18 22:32 Urine Blood Lg (Negative) 08/10/18 22:32 Urine Nitrite Neg (Negative) 08/10/18 22:32 Urine Bilirubin Neg (Negative) 08/10/18 22:32 Urine Urobilinogen < 2.0 mg/dL (<2.0) 08/10/18 22:32 Ur Leukocyte Esterase Lg (Negative) 08/10/18 22:32 Urine WBC (Auto) 74.0 /HPF (0.0-6.0) H 08/10/18 22:32 Urine RBC (Auto) 10.0 /HPF (0.0-6.0) 08/10/18 22:32 U Epithel Cells (Auto) 9.0 /HPF (0-13.0) 08/10/18 22:32 Amorphous Crystals 2+ 08/10/18 22:32 Urine Mucus 1+ /HPF 08/10/18 22:32 Active Medications - Current Medications Current Medications: Generic Name Dose Route Start Last Admin Trade Name Freq PRN Reason Stop Dose Admin Acetaminophen 650 mg 08/10/18 23:57 08/11/18 18:15 Tylenol PO 650 mg Q4H PRN Administration Fever >101 Albuterol/Ipratropium 1 ampul 08/11/18 08:00 08/11/18 16:10 Duoneb *Not For Prn Use* IH 1 ampul QIDRT JOE Administration Arformoterol Tartrate 15 mcg 08/11/18 08:00 08/11/18 08:15 Broprecious [place] IH 15 mcg Q12HRT JOE Administration Aspirin 325 mg 08/11/18 10:00 08/11/18 14:08 Ecotrin PO 325 mg QDAY JOE Administration Atorvastatin Calcium 40 mg 08/11/18 22:00 Lipitor PO QHS JOE Budesonide 0.5 mg 08/11/18 08:00 08/11/18 08:15 Pulmicort IH 0.5 mg BIDRT JOE Administration Carvedilol 6.25 mg 08/11/18 10:00 08/11/18 14:07 Coreg PO 6.25 mg BID JOE Administration Dextrose 50 ml 08/11/18 05:10 D50w (25gm) Syringe IV PRN PRN Hypoglycemia Docusate Sodium 100 mg 08/11/18 10:00 08/11/18 10:08 Colace PO Not Given BID JOE Enoxaparin Sodium 40 mg 08/12/18 10:00 Lovenox SUB-Q QDAY@1000 JOE Furosemide 40 mg 08/11/18 10:00 08/11/18 14:06 Lasix IV 40 mg QDAY [facility] Administration Guaifenesin 200 mg 08/10/18 23:56 08/11/18 18:15 Robitussin PO 200 mg Q4H PRN Administration Cough Levofloxacin/Dextrose 750 mg in 150 mls @ 100 mls/hr 08/11/18 10:00 08/11/18 13:30 Levaquin 750mg/150ml IV 100 mls/hr Q24HR [facility] Administration Protocol Insulin Human Lispro 0 unit 08/11/18 06:00 08/11/18 18:15 Humalog SUB-Q 3 unit Q4H [facility] Administration Protocol Methylprednisolone Sodium Succinate 60 mg 08/11/18 06:00 08/11/18 14:06 Solu-Medrol IV 60 mg Q8HR JOE Administration Nitroglycerin 0.4 mg 08/10/18 23:52 Nitrostat SL .Q5MIN PRN Chest Pain Nitroglycerin 0.5 inch 08/11/18 06:00 08/11/18 18:15 Nitro-Bid 2% TP 0.5 inch QIDNTG [facility] Administration Protocol Ondansetron HCl 4 mg 08/10/18 23:58 Zofran IV Q8H PRN Nausea And Vomiting
[2018-08-12] MEDS: HumaLOG SUB-Q SCH ×6 (02:00→21:39)
[2018-08-12] MEDS: NITRO-BID 2% TP SCH ×4 (05:47→18:16)
[2018-08-12] MEDS: SOLU-Medrol IV SCH ×3 (05:47→21:35)
--- NOTE | 2018-08-12 08:59 | Progress Note ---
Assessment and Plan Acute respiratory failure Fever Chronic systolic heart failure COPD on oxygen as an outpatient Dilated Nonischemic Cardiomyopathy LHC at [facility] in 2013: no significant CAD, EF 45% EF 40-45% by echo 04/2018 Chronic elevated troponin, nonspecific Diabetes Hypertension Recommend: Fluid/sodium restriction. Continue medical management for heart failure to include diuretics, afterload agents and beta blockers. Conservative cardiac management. Subjective Date of service: 08/12/18 Interval history: Patient reports she is feeling better. Still with coughs and active wheezing. Objective Vital Signs Temp Pulse Pulse Resp Resp Resp BP 08/12/18 06:14 109 H 08/12/18 06:13 18 08/12/18 03:48 98.4 F 109 H 16 126/74 08/11/18 23:47 99.8 F H 90 20 134/99 08/11/18 22:38 20 08/11/18 20:35 08/11/18 20:34 91 H 18 08/11/18 20:00 08/11/18 19:45 98.6 F 95 H 14 132/82 08/11/18 17:24 99.3 F 88 20 124/61 08/11/18 17:00 102 H 08/11/18 16:12 98 H 20 08/11/18 16:00 96 H 20 08/11/18 13:30 99.6 F 103 H 18 141/81 08/11/18 13:05 102 H 20 08/11/18 13:00 18 08/11/18 12:55 96 H 18 08/11/18 11:41 08/11/18 09:00 102 H Pulse Ox 08/12/18 06:14 08/12/18 06:13 08/12/18 03:48 90 08/11/18 23:47 90 08/11/18 22:38 08/11/18 20:35 93 08/11/18 20:34 08/11/18 20:00 94 08/11/18 19:45 84 08/11/18 17:24 85 08/11/18 17:00 08/11/18 16:12 08/11/18 16:00 08/11/18 13:30 88 08/11/18 13:05 08/11/18 13:00 08/11/18 12:55 08/11/18 11:41 95 08/11/18 09:00 - Physical Examination General: No Apparent Distress HEENT: Positive: PERRL Cardiac: Positive: Reg Rate and Rhythm Lungs: Positive: Decreased Breath Sounds, Wheezes
[2018-08-12] MEDS ORDERED: MILK OF MAGNESIA PO ONE (09:11)
[2018-08-12] MEDS ORDERED: MILK OF MAGNESIA PO PRN (09:11)
[2018-08-12] MEDS ORDERED: DULCOLAX PR PRN (09:12)
[2018-08-12] MEDS ORDERED: MIRALAX 3350 PO PRN (09:14)
--- NOTE | 2018-08-12 09:18 | Progress Note ---
Assessment and Plan Assessment and plan: --Constipation 5 to 7 days; Milk of magnesia, Dulcolax suppository , if no improvement consider enema --Acute exacerbation of COPD ; oxygen titrate O2 sats to more than 90% Nebulizers, IV steroids, IV antibiotics, pulmonary consult if needed --Type 2 diabetes mellitus; uncontrolled, Accu-Chek sliding scale coverage and ADA diet Resume metformin --Generalized body pains;Continue supportive care --Acute on chronic systolic congestive heart failure; Continue anti-failure medications --Nonischemic cardiomyopathy; ejection fraction 40-45% in April2018 Continue anti-failure medications --Chronic elevation cardiac enzymes; nonspecific Cardiology does not recommend ischemic workup at this point --Urinary tract infection; empiric antibiotics, follow cultures --History of schizophrenia; patient medications Consult psych if needed --DVT prophylaxis; Lovenox Monitor the patient closely and adjust management as needed Closely monitor the patient and adjust management as needed History Interval history: Patient seen and examined medical record reviewed Patient and family member complaining of 5-7 days of constipation Denies chest pain shortness of breath Vitals reviewed Hospitalist Physical - Constitutional Vitals: Temp Pulse Resp BP Pulse Ox 98.4 F 109 H 18 126/74 90 08/12/18 03:48 08/12/18 06:14 08/12/18 06:13 08/12/18 03:48 08/12/18 03:48 General appearance: Present: no acute distress, well-nourished, obese (morbidly obese) - EENT Eyes: Present: PERRL, EOM intact - Neck Neck: Present: supple, normal ROM - Respiratory Respiratory effort: normal Respiratory: bilateral: diminished, negative: rales, rhonchi, wheezing - Cardiovascular Rhythm: regular Heart Sounds: Present: S1 & S2 - Extremities Extremities: no ischemia, No edema - Abdominal General gastrointestinal: soft, non-tender, non-distended, normal bowel sounds - Integumentary Integumentary: Present: clear, warm - Psychiatric Psychiatric: other (minimally communicative) - Neurologic Neurologic: other (encephalopathy,) Results - Labs CBC & Chem 7: 08/11/18 04:53 08/10/18 19:38 Labs: Laboratory Last Values WBC 11.6 K/mm3 (4.5-11.0) H 08/10/18 20:26 RBC 4.40 M/mm3 (3.65-5.03) 08/10/18 20: Hgb 13.7 gm/dl (10.1-14.3) 08/11/18 04:53 Hct 43.6 % (30.3-42.9) H 08/11/18 04:53 MCV 98 fl (79-97) H 08/10/18 20: MCH 31 pg (28-32) 08/10/18 20: MCHC 32 % (30-34) 08/10/18 20: RDW 18.7 % (13.2-15.2) H 08/10/18 20:26 Plt Count 222 K/mm3 (140-440) 08/11/18 04:53 Lymph % (Auto) 14.9 % (13.4-35.0) 08/10/18 20: [place] % (Auto) 13.0 % (0.0-7.3) H 08/10/18 20: Eos % (Auto) 0.0 % (0.0-4.3) 08/10/18 20: Baso % (Auto) 0.8 % (0.0-1.8) 08/10/18 20: Lymph # 1.7 K/mm3 (1.2-5.4) 08/10/18 20: [place] # 1.5 K/mm3 (0.0-0.8) H 08/10/18 20: Eos # 0.0 K/mm3 (0.0-0.4) 08/10/18 20: Baso # 0.1 K/mm3 (0.0-0.1) 08/10/18 20: Seg Neutrophils % 71.3 % (40.0-70.0) H 08/10/18 20: Seg Neutrophils # 8.3 K/mm3 (1.8-7.7) H 08/10/18 20: PT 13.5 Sec. (12.2-14.9) 08/11/18 05:01 INR 0.97 (0.87-1.13) 08/11/18 05:01 APTT 57.9 Sec. (24.2-36.6) H 08/11/18 05:01 Heparin Anti-Xa Level < 0.10 U.I./ml (0.3-0.7) L 08/11/18 11:08 Sodium 142 mmol/L (137-145) 08/10/18 19:38 Potassium 5.2 mmol/L (3.6-5.0) H 08/10/18 19:38 Chloride 95.1 mmol/L (98-107) L 08/10/18 19:38 Carbon Dioxide 37 mmol/L (22-30) H 08/10/18 19:38 Anion Gap 15 mmol/L 08/10/18 19:38 BUN 20 mg/dL (7-17) H 08/10/18 19:38 Creatinine 1.2 mg/dL (0.7-1.2) 08/10/18 19:38 Estimated GFR 58 ml/min 08/10/18 19:38 BUN/Creatinine Ratio 17 % 08/10/18 19:38 Glucose 354 mg/dL (65-100) H 08/10/18 19:38 POC Glucose 214 (70-105) H 08/12/18 07:27 Calcium 9.0 mg/dL (8.4-10.2) 08/10/18 19:38 Total Bilirubin 0.20 mg/dL (0.1-1.2) 08/10/18 19:38 AST 14 units/L (5-40) 08/10/18 19:38 ALT 28 units/L (7-56) 08/10/18 19:38 Alkaline Phosphatase 63 units/L (35-129) 08/10/18 19:38 Total Creatine Kinase 167 units/L (30-135) H 08/11/18 05:01 CK-MB (CK-2) 6.4 ng/mL (0.0-4.0) H 08/11/18 05:01 CK-MB (CK-2) Rel Index 3.8 (0-4) 08/11/18 05:01 Troponin T 0.111 ng/mL (0.00-0.029) H* D 08/11/18 05:01 NT-Pro-B Natriuret Pep 3867 pg/mL (0-450) H 08/10/18 19:38 Total Protein 6.4 g/dL (6.3-8.2) 08/10/18 19:38 Albumin 3.8 g/dL (3.9-5) L 08/10/18 19:38 Albumin/Globulin Ratio 1.5 % 08/10/18 19:38 Triglycerides 122 mg/dL (2-149) 08/10/18 19:38 Cholesterol 174 mg/dL (50-199) 08/10/18 19:38 LDL Cholesterol Direct 84 mg/dL (50-130) 08/10/18 19:38 HDL Cholesterol 80 mg/dL (40-59) H 08/10/18 19:38 Cholesterol/HDL Ratio 2.17 % 08/10/18 19:38 Urine Color Yellow (Yellow) 08/10/18 22:32 Urine Turbidity Turbid (Clear) 08/10/18 22:32 Urine pH 6.0 (5.0-7.0) 08/10/18 22:32 Ur Specific [place] 1.023 (1.003-1.030) 08/10/18 22:32 Urine Protein 100 mg/dl mg/dL (Negative) 08/10/18 22:32 Urine Glucose (UA) >=500 mg/dL (Negative) 08/10/18 22:32 Urine Ketones Neg mg/dL (Negative) 08/10/18 22:32 Urine Blood Lg (Negative) 08/10/18 22:32 Urine Nitrite Neg (Negative) 08/10/18 22:32 Urine Bilirubin Neg (Negative) 08/10/18 22:32 Urine Urobilinogen < 2.0 mg/dL (<2.0) 08/10/18 22:32 Ur Leukocyte Esterase Lg (Negative) 08/10/18 22:32 Urine WBC (Auto) 74.0 /HPF (0.0-6.0) H 08/10/18 22:32 Urine RBC (Auto) 10.0 /HPF (0.0-6.0) 08/10/18 22:32 U Epithel Cells (Auto) 9.0 /HPF (0-13.0) 08/10/18 22:32 Amorphous Crystals 2+ 08/10/18 22:32 Urine Mucus 1+ /HPF 08/10/18 22:32 Active Medications - Current Medications Current Medications: Generic Name Dose Route Start Last Admin Trade Name Freq PRN Reason Stop Dose Admin Acetaminophen 650 mg 08/10/18 23:57 08/11/18 22:09 Tylenol PO 650 mg Q4H PRN Administration Fever >101 Albuterol/Ipratropium 1 ampul 08/11/18 08:00 08/11/18 20:34 Duoneb *Not For Prn Use* IH 1 ampul QIDRT JOE Administration Arformoterol Tartrate 15 mcg 08/11/18 08:00 08/11/18 20:34 Blayne Beltranu IH 15 mcg Q12HRT JOE Administration Aspirin 325 mg 08/11/18 10:00 08/11/18 14:08 Ecotrin PO 325 mg QDAY JOE Administration Atorvastatin Calcium 40 mg 08/11/18 22:00 08/11/18 22:09 Lipitor PO 40 mg QHS JOE Administration Budesonide 0.5 mg 08/11/18 08:00 08/11/18 20:34 Pulmicort IH 0.5 mg BIDRT JOE Administration Carvedilol 6.25 mg 08/11/18 10:00 08/11/18 22:09 Coreg PO 6.25 mg BID JOE Administration Dextrose 50 ml 08/11/18 05:10 D50w (25gm) Syringe IV PRN PRN Hypoglycemia Docusate Sodium 100 mg 08/11/18 10:00 08/11/18 22:09 Colace PO 100 mg BID [facility] Administration Enoxaparin Sodium 40 mg 08/12/18 10:00 Lovenox SUB-Q QDAY@1000 JOE Furosemide 40 mg 08/11/18 10:00 08/11/18 14:06 Lasix IV 40 mg QDAY [facility] Administration Guaifenesin 200 mg 08/10/18 23:56 08/11/18 18:15 Robitussin PO 200 mg Q4H PRN Administration Cough Hydralazine HCl 25 mg 08/12/18 14:00 Apresoline PO Q8HR [facility] Levofloxacin/Dextrose 750 mg in 150 mls @ 100 mls/hr 08/11/18 10:00 08/11/18 13:30 Levaquin 750mg/150ml IV 08/15/18 11:29 100 mls/hr Q24HR [facility] Administration Protocol Insulin Human Lispro 0 unit 08/11/18 06:00 08/12/18 05:51 Humalog SUB-Q 4 unit Q4H [facility] Administration Protocol Methylprednisolone Sodium Succinate 40 mg 08/12/18 14:00 Solu-Medrol IV Q8HR [facility] Nitroglycerin 0.4 mg 08/10/18 23:52 Nitrostat SL .Q5MIN PRN Chest Pain Nitroglycerin 0.5 inch 08/11/18 06:00 08/12/18 05:47 Nitro-Bid 2% TP 0.5 inch QIDNTG [facility] Administration Protocol Ondansetron HCl 4 mg 08/10/18 23:58 Zofran IV Q8H PRN Nausea And Vomiting
[2018-08-12] MEDS: DUONEB *Not for PRN Use IH SCH ×5 (09:46→19:10)
[2018-08-12] MEDS: PULMICORT IH SCH ×2 (09:46→19:10)
[2018-08-12] MEDS: BROVANA NEBU IH SCH ×2 (09:46→19:10)
[2018-08-12] MEDS: APRESOLINE PO SCH ×4 (10:00→21:34)
[2018-08-12] MEDS ORDERED: NON-FORMULARY (Metformin Hcl [Glucophage] 1,000 MG) PO SCH (10:00)
[2018-08-12] MEDS ORDERED: LOVENOX SUB-Q SCH (10:00)
[2018-08-12] MEDS: DOLOPHINE PO SCH ×2 (11:59→21:34)
[2018-08-12] MEDS: ECOTRIN PO SCH (12:00)
[2018-08-12] MEDS: LEVAQUIN 750MG/150ML 750 MG/150 ML BAG IV SCH (12:00)
[2018-08-12] MEDS: LASIX IV SCH (12:00)
[2018-08-12] MEDS: COREG PO SCH ×2 (12:01→21:33)
[2018-08-12] MEDS: COLACE PO SCH ×2 (12:01→21:33)
[2018-08-12] MEDS: PEPCID PO SCH (12:01)
[2018-08-12] MEDS: ISORDIL TITRADOSE PO SCH ×2 (12:01→18:21)
[2018-08-12] MEDS: ALDACTONE PO SCH (12:01)
[2018-08-12] MEDS: LOVENOX SUB-Q SCH (12:02)
[2018-08-12] MEDS: COZAAR PO SCH (12:02)
[2018-08-12] MEDS: GLUCOPHAGE PO SCH ×2 (13:00→21:34)
[2018-08-12] MEDS: PERCOCET 5/325 PO PRN (20:14)
[2018-08-12] MEDS ORDERED: SINGULAIR PO SCH (22:00)
[2018-08-12] MEDS ORDERED: DESYREL PO SCH (22:00)
[2018-08-13] MEDS: APRESOLINE PO SCH ×4 (01:31→15:59)
[2018-08-13] MEDS: ISORDIL TITRADOSE PO SCH ×2 (01:31→11:44)
[2018-08-13] MEDS: DUONEB *Not for PRN Use IH SCH ×3 (01:31→13:55)
[2018-08-13] MEDS: HumaLOG SUB-Q SCH ×4 (02:21→15:59)
[2018-08-13] MEDS: PERCOCET 5/325 PO PRN ×2 (05:05→10:02)
[2018-08-13] MEDS: NITRO-BID 2% TP SCH ×3 (05:06→15:59)
[2018-08-13] MEDS: SOLU-Medrol IV SCH ×2 (05:07→15:59)
[2018-08-13] MEDS: ROBITUSSIN PO PRN (05:12)
[2018-08-13 05:55] LABS: Hematocrit 42.5 % (30.3-42.9); Hemoglobin 13.6 gm/dl (10.1-14.3); Mean Corpuscular HGB Conc 32 % (30-34); Mean Corpuscular Volume 97 fl (79-97); Platelet Count 157 K/mm3 (140-440); Red Blood Count 4.38 M/mm3 (3.65-5.03); Red Cell Distribution Width 18.3 % (13.2-15.2)
[2018-08-13 06:08] LABS: Basophils % (Auto) 0.5 % (0.0-1.8); Eosinophils % (Auto) 0.3 % (0.0-4.3); Lymphocytes # (Auto) 1.3 K/mm3 (1.2-5.4); Lymphocytes % (Auto) 17.1 % (13.4-35.0); Monocytes # (Auto) 0.7 K/mm3 (0.0-0.8); Monocytes % (Auto) 8.9 % (0.0-7.3)
[2018-08-13 06:12] LABS: Alanine Aminotransferase 20 units/L (7-56); Albumin 3.4 g/dL (3.9-5); BUN/Creatinine Ratio 17; Blood Urea Nitrogen 17 mg/dL (7-17); Calcium 8.6 mg/dL (8.4-10.2); Hemolysis Index 7
[2018-08-13] MEDS: PULMICORT IH SCH (07:56)
[2018-08-13] MEDS: BROVANA NEBU IH SCH (07:56)
--- NOTE | 2018-08-13 08:37 | Discharge Summary ---
Providers - Providers Date of Admission: 08/10/18 23:43 Date of discharge: 08/13/18 Attending physician: SKIP CASTILLO 08/11/18 06:00 Consult to Physician [CONS] Routine Comment: Consulting Provider: PILLO NICKERSON Physician Instructions: Reason For Exam: CHF EXACERBATION WITH ELEVATED TROPONIN LEVEL 08/12/18 09:19 Physical Therapy Evaluation and Treat [CONS] Routine Comment: Reason For Exam: evaluate and treat Primary care physician: CORINNE HALL Hospitalization Reason for admission: Gen.Body pain and worsening shortness of breath 3-4 days Condition: Stable Pertinent studies: CXR Hospital course: 48 year old female patient who resides in a Assisted with multiple medical problems history of COPD and is on chronic oxygen therapy, chronic systolic heart failure and nonischemic cardiomyopathy. In 2013, a cardiac cath at [facility] revealed normal coronaries, EF 45%. A follow up echocardiogram 3 months ago reports evidence of moderate pulmonary hypertension, RVSP of 43 mmHg. There was a mildly decrease left ventricular systolic function with an ejection fraction 40-45% was admitted through ER with generalized body pain and worsening shortness of breath. Noted to be in acute exacerbation of COPD.Symptomatically managed,Evaluated by cardiology Medications optimised.Symptoms improved ,today patient is comfortable,No new complaints,vitals stable. Discharge and f/u cardiology,PMD per schedule Discharge Diagnosis: --Acute exacerbation of COPD ; oxygen titrate O2 sats to more than 90% Nebulizers, IV steroids, IV antibiotics, pulmonary consult if needed --Type 2 diabetes mellitus; uncontrolled, Accu-Chek sliding scale coverage and ADA diet Resume metformin --Generalized body pains;Continue supportive care --Acute on chronic systolic congestive heart failure; Continue anti-failure medications --Nonischemic cardiomyopathy; ejection fraction 40-45% in April2018 Continue anti-failure medications --Chronic elevation cardiac enzymes; nonspecific Cardiology does not recommend ischemic workup at this point --Constipation 5 to 7 days; Milk of magnesia, Dulcolax suppository , if no improvement consider enema --Urinary tract infection; empiric antibiotics, follow cultures --History of schizophrenia; patient medications Consult psych if needed --DVT prophylaxis; Lovenox Stable at discharge Disposition: [id number]/[place]-[id number] [facility] Time spent for discharge: 32 min Core Measure Documentation - Palliative Care Palliative Care/ Comfort Measures: Not Applicable - Core Measures Any of the following diagnoses?: none Exam - Constitutional Vitals: Temp Pulse Resp BP Pulse Ox 98.5 F 88 18 138/79 91 08/13/18 07:34 08/13/18 07:56 08/13/18 07:56 08/13/18 07:34 08/13/18 07:56 General appearance: Present: no acute distress, well-nourished, obese - EENT Eyes: Present: PERRL, EOM intact - Neck Neck: Present: supple, normal ROM - Respiratory Respiratory effort: normal Respiratory: bilateral: diminished, negative: rales, rhonchi, wheezing - Cardiovascular Rhythm: regular Heart Sounds: Present: S1 & S2 - Extremities Extremities: no ischemia Extremity abnormal: edema - Abdominal General gastrointestinal: Present: soft, non-tender, non-distended, normal bowel sounds - Integumentary Integumentary: Present: clear, warm - Musculoskeletal Musculoskeletal: generalized weakness - Psychiatric Psychiatric: cooperative, other (confused at times) - Neurologic Neurologic: other (residual weakness) Plan Activity: advance as tolerated, fall precautions Diet: diabetic Special Instructions: physical therapy Additional Instructions: Fall precautions. If you have chest pain or shortness of breath contact M.D. or go to emergency room Follow up with: CORINNE HALL MD [Primary Care Provider] - 3-5 Days PILLO NICKERSON MD [Staff Physician] - 7 Days
--- NOTE | 2018-08-13 09:57 | Progress Note ---
Assessment and Plan Acute respiratory failure Fever -resolved Chronic systolic heart failure COPD on oxygen as an outpatient Dilated Nonischemic Cardiomyopathy LHC at [facility] in 2013: no significant CAD, EF 45% EF 40-45% by echo 04/2018 Chronic elevated troponin, nonspecific Diabetes Hypertension Recommend: Fluid/sodium restriction. Continue medical management for heart failure to include diuretics, after-load agents and beta blockers. Conservative cardiac management. Subjective Date of service: 08/13/18 Interval history: Patient reports she is feeling better. Still with active wheezing. Objective Vital Signs Temp Pulse Pulse Pulse Resp Resp Resp 08/13/18 07:56 88 18 08/13/18 07:34 98.5 F 91 H 20 08/13/18 05:05 20 08/13/18 04:22 98.4 F 84 16 08/13/18 01:31 92 H 08/12/18 23:20 98.2 F 92 H 16 08/12/18 20:30 20 08/12/18 20:00 90 16 08/12/18 19:53 98.6 F 16 08/12/18 19:20 69 17 08/12/18 19:12 08/12/18 19:11 96 H 21 08/12/18 18:42 84 08/12/18 16:15 99.2 F 94 H 18 08/12/18 15:12 94 H 18 08/12/18 15:01 96 H 18 08/12/18 13:04 97.2 F L 92 H 18 08/12/18 10:00 08/12/18 09:58 76 20 BP Pulse Ox 08/13/18 07:56 91 08/13/18 07:34 138/79 92 08/13/18 05:05 08/13/18 04:22 131/83 98 08/13/18 01:31 95/67 08/12/18 23:20 95/67 91 08/12/18 20:30 08/12/18 20:00 91 08/12/18 19:53 126/71 08/12/18 19:20 08/12/18 19:12 91 08/12/18 19:11 08/12/18 18:42 08/12/18 16:15 137/68 89 08/12/18 15:12 08/12/18 15:01 08/12/18 13:04 151/101 86 08/12/18 10:00 93 08/12/18 09:58 - Physical Examination General: No Apparent Distress HEENT: Positive: PERRL Cardiac: Positive: Reg Rate and Rhythm Lungs: Positive: Decreased Breath Sounds, Wheezes - Labs and Meds Cardiac Enzymes 08/13/18 Range/Units 04:35 AST 8 (5-40) units/L CBC 08/13/18 Range/Units 04:35 WBC 7.4 (4.5-11.0) K/mm3 RBC 4.38 (3.65-5.03) M/mm3 Hgb 13.6 (10.1-14.3) gm/dl Hct 42.5 (30.3-42.9) % Plt Count 157 (140-440) K/mm3 Lymph # 1.3 (1.2-5.4) K/mm3 [place] # 0.7 (0.0-0.8) K/mm3 Eos # 0.0 (0.0-0.4) K/mm3 Baso # 0.0 (0.0-0.1) K/mm3 Comprehensive Metabolic Panel 08/13/18 Range/Units 04:35 Sodium 144 (137-145) mmol/L Potassium 4.5 (3.6-5.0) mmol/L Chloride 98.0 (98-107) mmol/L Carbon Dioxide 36 H (22-30) mmol/L BUN 17 (7-17) mg/dL Creatinine 1.0 (0.7-1.2) mg/dL Glucose 215 H (65-100) mg/dL Calcium 8.6 (8.4-10.2) mg/dL AST 8 (5-40) units/L ALT 20 (7-56) units/L Alkaline Phosphatase 51 (35-129) units/L Total Protein 5.6 L (6.3-8.2) g/dL Albumin 3.4 L (3.9-5) g/dL
[2018-08-13] MEDS: DOLOPHINE PO SCH (10:33)
[2018-08-13] MEDS: LASIX IV SCH (10:34)
[2018-08-13] MEDS: GLUCOPHAGE PO SCH (10:35)
[2018-08-13] MEDS: COREG PO SCH (10:35)
[2018-08-13] MEDS: ALDACTONE PO SCH (10:36)
[2018-08-13] MEDS: LOVENOX SUB-Q SCH (10:36)
[2018-08-13] MEDS: PEPCID PO SCH (10:39)
[2018-08-13] MEDS: COLACE PO SCH (10:39)
[2018-08-13] MEDS: ECOTRIN PO SCH (10:39)
[2018-08-13] MEDS: COZAAR PO SCH (10:39)
[2018-08-13] MEDS: LEVAQUIN 750MG/150ML 750 MG/150 ML BAG IV SCH (10:54)
[2018-08-13 11:45] VITALS: BP 138/79
== END 2018-08-13 16:01 | DRG 291 ==
LOC: ED 17:47 → 4A 23:43
PROVIDERS: ADMIT Internal Medicine; ATTEND Internal Medicine
DX: I11.0 Hypertensive heart disease with heart failure (principal); J96.00 Acute respiratory failure, unspecified whether with hypoxia or hypercapnia; N39.0 Urinary tract infection, site not specified; J44.1 Chronic obstructive pulmonary disease with (acute) exacerbation; Z68.42 Body mass index [BMI] 45.0-49.9, adult; I50.23 Acute on chronic systolic (congestive) heart failure; I42.0 Dilated cardiomyopathy; E66.01 Morbid (severe) obesity due to excess calories; F20.9 Schizophrenia, unspecified; M54.9 Dorsalgia, unspecified; M19.90 Unspecified osteoarthritis, unspecified site; K59.00 Constipation, unspecified; F32.9 Major depressive disorder, single episode, unspecified; F03.90 Unspecified dementia, unspecified severity, without behavioral disturbance, psychotic disturbance, mood disturbance, and anxiety; L89.159 Pressure ulcer of sacral region, unspecified stage; E11.9 Type 2 diabetes mellitus without complications; G89.29 Other chronic pain; I25.2 Old myocardial infarction; Z87.891 Personal history of nicotine dependence; Z90.710 Acquired absence of both cervix and uterus; Z91.19 Patient's noncompliance with other medical treatment and regimen; Z86.711 Personal history of pulmonary embolism; I69.391 Dysphagia following cerebral infarction; Z88.0 Allergy status to penicillin; Z88.2 Allergy status to sulfonamides; Z71.3 Dietary counseling and surveillance
CPT/HCPCS: 36415; 71046; 80053; 80061; 81001; 82550; 82553; 82962; 83735; 83880; 84484; 85014; 85018; 85025; 85027; 85049; 85520; 85610; 85730; 87086; 87116; 93005; 93010; 94640; 94760; 96374; 96375; 99406; G0378; A9270-GY; J1644; J1650; J1815; J1940; J1956; J2270; J2405; J2920; J2930

== ENCOUNTER 2018-09-24 11:16 | Inpatient (IN) | payer MEDICARE ==
--- NOTE | 2018-09-24 11:29 | Emergency Department Report ---
HPI - General Time Seen by Provider: 09/24/18 11:19 - HPI HPI: 48-year-old -[place] female presents to the emergency department via EMS from her [facility] with a complaint of progressively worsening shortness of breath. The patient has a significant past medical history including dilated cardiomyopathy, CHF, COPD, diabetes, morbid obesity, sleep apnea. The patient has been here in the past for similar symptoms and has required mechanical ventilation. Currently the patient is a poor historian secondary to her current respiratory status. The patient was found by EMS to be slightly hypoxic presents into the emergency department moderately to severely hypoxic. She receives some CPAP in route. ED Past Medical Hx - Past Medical History Hx Hypertension: Yes Hx Heart Attack/AMI: Yes Hx Congestive Heart Failure: Yes Hx Diabetes: Yes Hx Deep Vein Thrombosis: No Hx Pulmonary Embolism: Yes Hx Liver Disease: No Hx Arthritis: Yes Hx Psychiatric Treatment: Yes (hx of schizophrenia, major depressive disorder) Hx Asthma: Yes Hx COPD: Yes Hx Dementia: Yes Hx HIV: No Additional medical history: Dysphasia. obstructive sleep apnea - Surgical History Hx Pacemaker: No Hx Internal Defibrillator: No Additional Surgical History: Partial hysterectomy. Tracheostomy - Social History Smoking Status: Never Smoker Substance Use Type: None - Medications Home Medications: Home Medications Medication Instructions Recorded Confirmed Last Taken Type Metformin HCl [Glucophage] 1,000 mg PO BID 03/28/18 09/24/18 Unknown History AtorvaSTATin [Lipitor] 40 mg PO QHS tablet 05/25/18 09/24/18 Unknown Rx Carvedilol [Coreg] 6.25 mg PO BID tablet 05/25/18 09/24/18 Unknown Rx Famotidine [Pepcid] 20 mg PO DAILY tablet 05/25/18 09/24/18 Unknown Rx Isosorbide Dinitrate [Isordil 20 mg PO Q8H tablet 05/25/18 09/24/18 Unknown Rx Titradose] Losartan [Cozaar] 50 mg PO QDAY tablet 05/25/18 09/24/18 Unknown Rx Methadone [Dolophine] 5 mg PO BID tablet 05/25/18 09/24/18 Unknown Rx Montelukast [Singulair] 10 mg PO QHS tablet 05/25/18 09/24/18 Unknown Rx Polyethylene Glycol 3350 [Miralax 17 gm PO QDAY PRN powd.pack 05/25/18 09/24/18 Unknown Rx 3350] Spironolactone [Aldactone] 25 mg PO QDAY tablet 05/25/18 09/24/18 Unknown Rx hydrALAZINE [Apresoline TAB] 37.5 mg PO Q8H tablet 05/25/18 09/24/18 Unknown Rx Budesonide [Pulmicort Respules] 0.5 mg IH Q12HR 08/25/18 09/24/18 Unknown History Insulin Detemir [Levemir VIAL] 10 units SUB-Q QHS 08/25/18 09/24/18 Unknown History Insulin Regular, Human [HumuLIN R] See Protocol SUB-Q ACHS 08/25/18 09/24/18 Unknown History Sorbitol 70% 30 ml PO Q12H 08/25/18 09/24/18 Unknown History carBAMazepine [Carbamazepine] 200 mg PO DAILY 08/25/18 09/24/18 Unknown History traZODone [Desyrel] 50 mg PO QHS 08/25/18 09/24/18 Unknown History Acetaminophen [Tylenol] 650 mg PO Q12H PRN 09/24/18 09/24/18 Unknown History Aspirin EC 325 mg PO DAILY 09/24/18 09/24/18 Unknown History Fluticasone [Flonase] 1 spray NS BID 09/24/18 09/24/18 Unknown History Ipratropium/Albuterol Sulfate 1 ampul IH Q8HR 09/24/18 09/24/18 Unknown History [DUONEB *Not for PRN Use*] LORazepam [Ativan] 0.5 mg PO DAILY 09/24/18 09/24/18 Unknown History LORazepam [Ativan] 1 mg PO QHS 09/24/18 09/24/18 Unknown History Loratadine [Claritin] 10 mg PO DAILY 09/24/18 09/24/18 Unknown History Quetiapine Fumarate [SEROquel] 300 mg PO Q12H 09/24/18 09/24/18 Unknown History Sennosides Tab [Senokot] 17.2 mg PO HS 09/24/18 09/24/18 Unknown History Zolpidem [Ambien] 5 mg PO QHS PRN 09/24/18 09/24/18 Unknown History buPROPion SR [Wellbutrin SR] 100 mg PO DAILY 09/24/18 09/24/18 Unknown History guaiFENesin 400 mg PO BID 09/24/18 09/24/18 Unknown History oxyCODONE /ACETAMINOPHEN [Percocet 1 tab PO DAILY@1700 09/24/18 09/24/18 Unknown History 5/325] predniSONE [Deltasone] 40 mg PO DAILY 09/24/18 09/24/18 Unknown History ED Review of Systems ROS: Stated complaint: ROBERTO Other details as noted in HPI Comment: Unobtainable due to pts medical conditions Respiratory: cough, shortness of breath, wheezing Physical Exam - Physical Exam Physical Exam: GENERAL: Ill appearing. HENT: Normocephalic. Atraumatic. Patient has moist mucous membranes. EYES: Extraocular motions are intact. Pupils equal reactive to light bilaterally. NECK: Supple. Trachea is midline. CHEST/LUNGS: Coarse breath sounds. Patient has tachypnea and accessory muscle use. There is conversational dyspnea. There is respiratory distress noted. HEART/CARDIOVASCULAR: Regular. There is n mild to moderate tachycardia. There is no murmur. ABDOMEN: Abdomen is soft, nontender. Patient has normal bowel sounds. Morbidly obese habitus. SKIN: Skin is warm and dry. NEURO: The patient is awake, alert. The patient has no focal neurologic defi cits. The patient has normal speech. MUSCULOSKELETAL: There is no tenderness or deformity. There is no evidence of acute injury. - ABG Interpretation Ph: 7.256 PCO2: 92 PO2: 161 Bicarbonate: 42 Interpretation: respiratory acidosis - Pulse Oximetry Interpretation Digit-Finger Initial Pulse Oximetry Readin O2 Sat by Pulse Oximetry: 46 Actions Taken: placed on BiPAP ED Medical Decision Making - Lab Data Result diagrams: 09/24/18 11:28 09/24/18 11:28 - EKG Data -: EKG Interpreted by Me EKG shows normal: sinus rhythm, axis (left axis deviation), intervals, QRS complexes (left anterior fascicular block, low voltage), ST-T waves (nonspecific ST-T waves) Rate: tachycardia (107 bpm) - EKG Data When compared to previous EKG there are: no significant change Interpretation: unchanged when compared t (08/24/18) - Radiology Data Radiology results: report reviewed, image reviewed interpreted by me: Chest x-ray shows some pulmonary vascular congestion and some mild pulmonary edema. Abdominal x-ray shows nonspecific nonobstructive bowel gas PROCEDURE: US ABDOMEN LIMITED TECHNIQUE: Grayscale and color-flow imaging of the right upper quadrant was performed. HISTORY: upper abd pain COMPARISONS: Ultrasound kidneys dated August 26, 2017. The report of that study is not available for review at the time of this dictation. FINDINGS: Pancreas: Not well visualized due to artifact. Upper abdominal aorta: Upper limits of normal caliber (2.5 cm). Liver: Demonstrates homogeneous echogenicity. There is no demonstration of a focal mass. Right kidney: Measures 11.5 cm in the maximal craniocaudal dimension. There is increased echogenicity of the liver suggestive of medical renal disease. There is no demonstration of hydronephrosis, renal calculi or renal mass. Main portal vein: Normal hepatopedal flow. Gallbladder: Moderately distended. There is no demonstration of gallstones or gallbladder wall thickening (2.2 mm). There is no demonstration of pericholecystic fluid. Common bile duct: Normal caliber (2.6 mm). No free fluid is demonstrated in the right upper quadrant. IMPRESSION: 1. No ultrasound evidence of gallstones or acute cholecystitis. 2. Findings suggestive of medical renal disease right kidney. 3. The upper abdominal aorta is upper limits of normal caliber (2.5 cm). 4. The pancreas is not well visualized with this study due to artifact. This document is electronically signed by Rosenda Farah MD., September 24 2018 07:16:40 PM ET Transcribed By: ED Dictated By: ROSENDA FARAH MD Electronically Authenticated By: ROSENDA FARAH MD Signed Date/Time: 09/24/181917 - Medical Decision Making Patient presents to the emergency department from her [facility] with respiratory distress. She has coarse breath sounds, tachypnea and accessory muscle use. Patient had significant hypoxia upon arrival but greatly improved once placed on the BiPAP. Chest x-ray shows some pulmonary vascular congestion and mild pulmonary edema. The patient was given a dose of Lasix to start diuresis. The patient's first ABG showed significant hypercapnia with a PCO2 of about 90. Some changes were made to the BiPAP and it was rechecked in about one hour and the PCO2 has started to come down to 80 and then on the third ABG it was down to 75 with a resolution of the acidosis and improvement of the patient's mentation. Therefore, for now, the patient will remain on the BiPAP and will go to the IMCU instead of requiring intubation at this time. Patient has had multiple abnormal labs including hyperkalemia with a potassium of 5.9, BNP greater than 2000, elevated troponin and hyperglycemia. The hyperkalemia was treated with some Kayexalate. The elevated BMP, along with her chest x-ray and physical examination shows signs of CHF and we have started diuresis. The patient has a history of elevated troponins in the past and this is consistent with previous visits. While she has some hyperglycemia, she does not appear to be in diabetic ketoacidosis. Later on during her ED course, the patient suddenly started complaining of some abdominal pain. It was in the upper abdom en but not associated with any nausea or vomiting, constipation or diarrhea, dysuria. Abdominal WAS DONE THAT DID NOT SHOW ANY ACUTE PROCESS. ABDOMINAL X- RAY SHOWS NONSPECIFIC NONOBSTRUCTIVE BOWEL GAS. Patient will be admitted to the IM and was accepted for admission by the hospitalist, Dr. Martinez. - Differential Diagnosis CHF, pneumonia, FL, asthma, COPD Critical Care Time: Yes Critical care time in (mins) excluding proc time.: 35 Critical care attestation.: If time is entered above; I have spent that time in minutes in the direct care of this critically ill patient, excluding procedure time. Critical care time was spent on this patient during her initial evaluation, multiple re-evalu ations, ordering and interpretation of labs and imaging, multiple evaluations of ABGs, discussion with the admitting hospitalist. Critical Care Time: 35 minutes ED Disposition Clinical Impression: Respiratory distress, COPD exacerbation, Obesity hypoventilation syndrome, Elevated troponin Acute exacerbation of CHF (congestive heart failure) Qualifiers: Heart failure type: unspecified Qualified Code(s): I50.9 - Heart failure, unspecified Hypercapnic respiratory failure Qualifiers: Chronicity: unspecified Qualified Code(s): J96.92 - Respiratory failure, unspecified with hypercapnia Disposition: OP ADMIT IP TO THIS HOSP Is pt being admited?: Yes Condition: Serious Time of Disposition: 20:08
[2018-09-24] MEDS ORDERED: PROVENTIL IH ONE ×2 (11:31→11:44)
[2018-09-24] MEDS ORDERED: ATROVENT IH ONE ×2 (11:31→11:45)
[2018-09-24] MEDS ORDERED: MAGNESIUM SULFATE 2GM/50ML 2 GM/50 ML BAG IV ONE (11:58)
[2018-09-24] MEDS ORDERED: CORDARONE 150 MG in D5W 97 ML IV ONE (12:00)
[2018-09-24] MEDS ORDERED: CORDARONE 900 MG in D5W 482 ML IV SCH (12:00)
[2018-09-24 12:02] LABS: Mean Corpuscular HGB Conc 31 % (30-34); Mean Corpuscular Volume 97 fl (79-97); Platelet Count 149 K/mm3 (140-440); Red Blood Count 4.37 M/mm3 (3.65-5.03)
[2018-09-24 12:09] LABS: Hematocrit 42.6 % (30.3-42.9); Hemoglobin 13.1 gm/dl (10.1-14.3)
--- NOTE | 2018-09-24 12:15 | XRay Report ---
AP CHEST: HISTORY: chest pain Mild cardiomegaly and pulmonary venous congestion are identified which have decreased slightly since 08/24/18. Small left pleural effusion is suspected. Mild linear scarring or discoid atelectasis in the lower lung zones are noted. No infiltrate or pneumothorax. IMPRESSION: Mild CHF.
[2018-09-24 12:18] LABS: INR 0.97 (0.87-1.13)
[2018-09-24 12:19] LABS: Partial Thromboplastin Time 25.8 Sec. (24.2-36.6)
[2018-09-24 12:39] LABS: BUN/Creatinine Ratio 19; Blood Urea Nitrogen 13 mg/dL (7-17); Calcium 9.1 mg/dL (8.4-10.2)
[2018-09-24 12:40] LABS: Albumin 3.5 g/dL (3.9-5); Hemolysis Index 264
[2018-09-24] MEDS ORDERED: LASIX IV ONE (13:03)
[2018-09-24 13:54] LABS: Anisocytosis Few; Basophils % (Manual) 0 % (0.0-1.8); Myelocytes # (Manual) 0.3 K/mm3; Platelet Estimate Consistent w Auto; Poikilocytosis Few; Total Cells Counted 100
[2018-09-24 13:55] LABS: HDL Cholesterol 93 mg/dL (40-59); LDL Cholesterol,Direct 73 mg/dL (50-130)
[2018-09-24 14:05] LABS: Alanine Aminotransferase 21 units/L (7-56)
[2018-09-24] MEDS: KIONEX PO ONE ×2 (14:24→19:02)
[2018-09-24] MEDS ORDERED: ATIVAN IV ONE (16:50)
[2018-09-24] MEDS ORDERED: MORPHINE IV ONE ×2 (17:53→19:17)
--- NOTE | 2018-09-24 19:18 | Ultrasound Report ---
PROCEDURE: US ABDOMEN LIMITED TECHNIQUE: Grayscale and color-flow imaging of the right upper quadrant was performed. HISTORY: upper abd pain COMPARISONS: Ultrasound kidneys dated August 26, 2017. The report of that study is not available for jesus brown at the time of this dictation. FINDINGS: Pancreas: Not well visualized due to artifact. Upper abdominal aorta: Upper limits of normal caliber (2.5 cm). Liver: Demonstrates homogeneous echogenicity. There is no demonstration of a focal mass. Right kidney: Measures 11.5 cm in the maximal craniocaudal dimension. There is increased echogenicity of the liver suggestive of medical renal disease. There is no demonstration of hydronephrosis, renal calculi or renal mass. Main portal vein: Normal hepatopedal flow. Gallbladder: Moderately distended. There is no demonstration of gallstones or gallbladder wall thicke marta (2.2 mm). There is no demonstration of pericholecystic fluid. Common bile duct: Normal caliber (2.6 mm). No free fluid is demonstrated in the right upper quadrant. IMPRESSION: 1. No ultrasound evidence of gallstones or acute cholecystitis. 2. Findings suggestive of medical renal disease right kidney. 3. The upper abdominal aorta is upper limits of normal caliber (2.5 cm). 4. The pancreas is not well visualized with this study due to artifact. This document is electronically signed by Arabella Farah MD., September 24 2018 07:16:40 PM ET
--- NOTE | 2018-09-24 20:15 | XRay Report ---
PROCEDURE: XR ABDOMEN 2V TECHNIQUE: Frontal view of the abdomen. HISTORY: abd pain COMPARISONS: Ultrasound abdomen also performed today FINDINGS: Evaluation of the abdomen is significantly limited artifact created by large body habitus. The bowel gas pattern is nonspecific with air in distended loops of bowel in the abdomen and pelvis. There is no definite evidence of pneumoperitoneum on the supine images. However, pneumoperitoneum cou ld be missed due to artifact. An IVC filter is demonstrated. IMPRESSION: 1. Study significantly degraded by artifact created by large body habitus. 2. Nonspecific bowel gas pattern. 3. IVC filter. If there is a clinical concern of an acute intra-abdominal process, CT imaging may be helpful. This document is electronically signed by Arabella Farah MD., September 24 2018 08:13:48 PM ET
[2018-09-24] MEDS ORDERED: PROVENTIL IH PRN (22:29)
[2018-09-24] MEDS ORDERED: NON-FORMULARY (Quetiapine Fumarate [Seroquel] 300 MG) PO SCH (22:45)
[2018-09-24] MEDS: SOLU-Medrol IV SCH (23:41)
[2018-09-24] MEDS: AMBIEN PO PRN (23:42)
[2018-09-24] MEDS: TYLENOL PO PRN (23:42)
[2018-09-24] MEDS: ISORDIL TITRADOSE PO SCH (23:44)
[2018-09-25] MEDS: APRESOLINE PO SCH ×4 (02:13→22:17)
[2018-09-25] MEDS: COREG PO SCH ×3 (02:13→22:18)
[2018-09-25] MEDS: SOLU-Medrol IV SCH ×4 (06:08→23:11)
[2018-09-25] MEDS: ISORDIL TITRADOSE PO SCH ×3 (07:00→22:18)
--- NOTE | 2018-09-25 07:07 | Event Note ---
Date: 09/24/18 See H/p in reports Acute resp failure BIPAP Hypovrntilation Morbid obesity
[2018-09-25] MEDS: PULMICORT IH SCH ×3 (07:10→20:25)
[2018-09-25] MEDS ORDERED: HumuLIN R SUB-Q SCH (07:30)
[2018-09-25] MEDS: HumaLOG SUB-Q SCH ×4 (07:30→23:15)
[2018-09-25] MEDS: DUONEB *Not for PRN Use IH SCH ×4 (08:24→20:25)
--- NOTE | 2018-09-25 08:50 | History and Physical Report ---
CHIEF COMPLAINT: Severe respiratory distress. HISTORY OF PRESENT ILLNESS: A 48-year-old female with morbid obesity and history of CHF, COPD, diabetes, and sleep apnea, comes in for severe shortness of breath. The patient was intubated in the past. Very poor historian. Also, lethargic. Hypoxic at the time of admission. Cough productive of mucoid sputum. No fever or chills. No recent travel. PAST MEDICAL HISTORY: Significant for hypertension, coronary artery disease, acute VT in the past, diabetes, pulmonary embolism in the past, arthritis, schizophrenia, COPD, dementia, obstructive sleep apnea, and dysphagia. PAST SURGICAL HISTORY: Partial hysterectomy and tracheostomy. SOCIAL HISTORY: Does not smoke. Severely obese. [facility] resident. FAMILY HISTORY: Hypertension. CURRENT MEDICATIONS: On the chart. REVIEW OF SYSTEMS: Significant for severe shortness of breath and hypoxia, and also cough and wheezing. Otherwise, review of systems negative. PHYSICAL EXAMINATION: GENERAL: Middle-aged female, obese morbidly. VITAL SIGNS: Sats are 85-90%. Pulse is 127, respiratory rate is 22, blood pressure 116/66. HEENT: Unremarkable. Pupils equal and reactive. NECK: Supple, no lymphadenopathy, no thyromegaly. LUNGS: Scattered rhonchi bilaterally and wheezing present. Diminished air entry. CARDIOVASCULAR: S1, S2 heard. No gallop, no murmur, no rub. Apical impulse in left fifth intercostal space and midclavicular line. ABDOMEN: Soft and benign. No hepatosplenomegaly. No guarding, no rigidity. Hernial orifices are normal. EXTREMITIES: Good pedal pulses. No pedal edema. CENTRAL NERVOUS SYSTEM: Alert, slightly lethargic. SKIN: Normal. LABORATORY DATA: Significant for normal CBC. Sodium is 137, potassium is 5.9, BUN and creatinine is 13 and 0.7, glucose is 280. Troponin 0.069. BNP is 2191. HDL is 93. Also, ABG was significant for pCO2 of 90, pH of 7.336. First ABG report showed pCO2 of 90, but spending on the labs, pH was 7.336, pO2 of 68. ASSESSMENT AND PLAN: 1. Acute respiratory failure with hypercarbia and hypoxia. The patient initiated on BiPAP, IV Solu-Medrol 125 q.8, IV antibiotics and DuoNebs around the clock and albuterol p.r.n. Pulmonary consult was requested. 2. Hyperkalemia was treated. 3. Elevated troponin. Cardiology consult requested. 4. Congestive heart failure. BNP is elevated, Lasix initiated. 5. Type 2 diabetes. Insulin coverage for now. 6. Deep venous thrombosis prophylaxis. The patient on Lovenox. 7. Hyperlipidemia, statins initiated and continued. Critical care time is 40 minutes. JOB# [id number] SAMAN/BRITNI GALLO
[2018-09-25] MEDS ORDERED: NON-FORMULARY (Metformin Hcl [Glucophage] 1,000 MG) PO SCH (10:00)
[2018-09-25] MEDS: ATIVAN PO SCH ×2 (10:05→23:13)
[2018-09-25] MEDS: DOLOPHINE PO SCH ×2 (10:05→22:17)
[2018-09-25] MEDS: ALDACTONE PO SCH (10:06)
[2018-09-25] MEDS: PEPCID PO SCH (10:06)
[2018-09-25] MEDS: CLARITIN PO SCH (10:06)
[2018-09-25] MEDS: COZAAR PO SCH (10:06)
[2018-09-25] MEDS: ECOTRIN PO SCH (10:06)
[2018-09-25] MEDS: ROCEPHIN/NS 2 GM/100 ML 2 GM/100 ML BAG IV SCH (10:07)
[2018-09-25] MEDS: GLUCOPHAGE PO SCH ×2 (10:07→18:16)
[2018-09-25] MEDS: ZITHROMAX 500 MG in NACL 0.9% 250ML 250 ML IV SCH (10:08)
[2018-09-25] MEDS: FLONASE NS SCH ×2 (11:00→23:12)
--- NOTE | 2018-09-25 13:20 | Consultation ---
History of Present Illness Consult date: 09/25/18 Consult reason: elevated troponin History of present illness: This is one of many admissions for this 48-year-old woman who lives in [facility]. She has multiple medical problems including COPD on ambulatory oxygen, sleep apnea and dementia. There is a history of a nonischemic cardiomyopathy and chronic systolic heart failure. A cardiac catheterization several years ago in [place] reported the absence of coronary disease, documented a nonischemic cardiomyopathy. Over the past year, has been some improvement in left ventricular systolic function. Ejection fraction was 20-25% in August 2017, and more recently generally 2018 it was 40-45%. There is moderate pulmonary hypertension with a pulmonary artery systolic pressure of 43. Patient is currently in the ICU, awake, breathing comfortably on face mask o xygen. Heart rate is 105, sinus. Blood pressure is stable. Past History Past Medical History: heart failure, hypertension Medications and Allergies Allergies Allergy/AdvReac Type Severity Reaction Status Date / Time Penicillins Allergy Unknown Verified 08/24/18 22:32 Sulfa (Sulfonamide Allergy Unknown Verified 08/24/18 22:32 Antibiotics) sulfabenzamide Allergy Unknown Verified 08/24/18 22:32 Home Medications Medication Instructions Recorded Confirmed Last Taken Type Metformin HCl [Glucophage] 1,000 mg PO BID 03/28/18 09/24/18 Unknown History AtorvaSTATin [Lipitor] 40 mg PO QHS tablet 05/25/18 09/24/18 Unknown Rx Carvedilol [Coreg] 6.25 mg PO BID tablet 05/25/18 09/24/18 Unknown Rx Famotidine [Pepcid] 20 mg PO DAILY tablet 05/25/18 09/24/18 Unknown Rx Isosorbide Dinitrate [Isordil 20 mg PO Q8H tablet 05/25/18 09/24/18 Unknown Rx Titradose] Losartan [Cozaar] 50 mg PO QDAY tablet 05/25/18 09/24/18 Unknown Rx Methadone [Dolophine] 5 mg PO BID tablet 05/25/18 09/24/18 Unknown Rx Montelukast [Singulair] 10 mg PO QHS tablet 05/25/18 09/24/18 Unknown Rx Polyethylene Glycol 3350 [Miralax 17 gm PO QDAY PRN powd.pack 05/25/18 09/24/18 Unknown Rx 3350] Spironolactone [Aldactone] 25 mg PO QDAY tablet 05/25/18 09/24/18 Unknown Rx hydrALAZINE [Apresoline TAB] 37.5 mg PO Q8H tablet 05/25/18 09/24/18 Unknown Rx Budesonide [Pulmicort Respules] 0.5 mg IH Q12HR 08/25/18 09/24/18 Unknown History Insulin Detemir [Levemir VIAL] 10 units SUB-Q QHS 08/25/18 09/24/18 Unknown History Insulin Regular, Human [HumuLIN R] See Protocol SUB-Q ACHS 08/25/18 09/24/18 Unknown History Sorbitol 70% 30 ml PO Q12H 08/25/18 09/24/18 Unknown History carBAMazepine [Carbamazepine] 200 mg PO DAILY 08/25/18 09/24/18 Unknown History traZODone [Desyrel] 50 mg PO QHS 08/25/18 09/24/18 Unknown History Acetaminophen [Tylenol] 650 mg PO Q12H PRN 09/24/18 09/24/18 Unknown History Aspirin EC 325 mg PO DAILY 09/24/18 09/24/18 Unknown History Fluticasone [Flonase] 1 spray NS BID 09/24/18 09/24/18 Unknown History Ipratropium/Albuterol Sulfate 1 ampul IH Q8HR 09/24/18 09/24/18 Unknown History [DUONEB *Not for PRN Use*] LORazepam [Ativan] 0.5 mg PO DAILY 09/24/18 09/24/18 Unknown History LORazepam [Ativan] 1 mg PO QHS 09/24/18 09/24/18 Unknown History Loratadine [Claritin] 10 mg PO DAILY 09/24/18 09/24/18 Unknown History Quetiapine Fumarate [SEROquel] 300 mg PO Q12H 09/24/18 09/24/18 Unknown History Sennosides Tab [Senokot] 17.2 mg PO HS 09/24/18 09/24/18 Unknown History Zolpidem [Ambien] 5 mg PO QHS PRN 09/24/18 09/24/18 Unknown History buPROPion SR [Wellbutrin SR] 100 mg PO DAILY 09/24/18 09/24/18 Unknown History guaiFENesin 400 mg PO BID 09/24/18 09/24/18 Unknown History oxyCODONE /ACETAMINOPHEN [Percocet 1 tab PO DAILY@1700 09/24/18 09/24/18 Unknown History 5/325] predniSONE [Deltasone] 40 mg PO DAILY 09/24/18 09/24/18 Unknown History Active Meds: Active Medications Acetaminophen (Tylenol) 650 mg PO Q12H PRN PRN Reason: Non Cardiac Pain or Temp>100.5 Last Admin: 09/24/18 23:42 Dose: 650 mg Documented by: Albuterol (Proventil) 2.5 mg IH Q4HRT PRN PRN Reason: Shortness Of Breath Albuterol/Ipratropium (Duoneb *Not For Prn Use*) 1 ampul IH QIDRT [facility] Last Admin: 09/25/18 12:43 Dose: 1 ampul Documented by: Aspirin (Ecotrin) 325 mg PO DAILY [facility] Last Admin: 09/25/18 10:06 Dose: 325 mg Documented by: Atorvastatin Calcium (Lipitor) 40 mg PO QHS [facility] Budesonide (Pulmicort) 0.5 mg IH Q12HRT [facility] Last Admin: 09/25/18 08:24 Dose: 0.5 mg Documented by: Bupropion HCl (Wellbutrin Sr) 100 mg PO DAILY [facility] Carbamazepine (Tegretol) 200 mg PO DAILY [facility] Last Admin: 09/25/18 10:08 Dose: 200 mg Documented by: Carvedilol (Coreg) 6.25 mg PO BID [facility] Last Admin: 09/25/18 10:06 Dose: 6.25 mg Documented by: Enoxaparin Sodium (Lovenox) 40 mg SUB-Q QDAY@2200 [facility] Famotidine (Pepcid) 20 mg PO DAILY [facility] Last Admin: 09/25/18 10:06 Dose: 20 mg Documented by: Fluticasone Propionate (Flonase) 50 mcg NS BID [facility] Hydralazine HCl (Apresoline) 37.5 mg PO Q8HR [facility] Last Admin: 09/25/18 07:00 Dose: Not Given Documented by: Ceftriaxone Sodium (Rocephin/Ns 2 Gm/100 Ml) 2 gm in 100 mls @ 200 mls/hr IV Q24HR [facility]; Protocol Last Admin: 09/25/18 10:07 Dose: 200 mls/hr Documented by: Azithromycin 500 mg/ Sodium (Chloride) 250 mls @ 250 mls/hr IV Q24HR [facility] Last Admin: 09/25/18 10:08 Dose: 250 mls/hr Documented by: Insulin Glargine (Lantus) 10 units SUB-Q QHS [facility] Insulin Human Lispro (Humalog) 0 unit SUB-Q [facility]; Protocol Insulin Human Regular (Humulin R) 0 units SUB-Q [facility]; Protocol Isosorbide Dinitrate (Isordil Titradose) 20 mg PO Q8HR [facility] Last Admin: 09/25/18 07:00 Dose: Not Given Documented by: Loratadine (Claritin) 10 mg PO DAILY [facility] Last Admin: 09/25/18 10:06 Dose: 10 mg Documented by: Lorazepam (Ativan) 0.5 mg PO DAILY [facility] Last Admin: 09/25/18 10:05 Dose: 0.5 mg Documented by: Lorazepam (Ativan) 1 mg PO QHS [facility] Losartan Potassium (Cozaar) 50 mg PO QDAY [facility] Last Admin: 09/25/18 10:06 Dose: 50 mg Documented by: Metformin HCl (Glucophage) 1,000 mg PO BIDDIAB [facility] Last Admin: 09/25/18 10:07 Dose: 1,000 mg Documented by: Methadone HCl (Dolophine) 5 mg PO BID [facility] Last Admin: 09/25/18 10:05 Dose: 5 mg Documented by: Methylprednisolone Sodium Succinate (Solu-Medrol) 125 mg IV Q8HR [facility] Last Admin: 09/25/18 06:08 Dose: 125 mg Documented by: Montelukast Sodium (Singulair) 10 mg PO QHS [facility] Polyethylene Glycol (Miralax 3350) 17 gm PO QDAY PRN PRN Reason: Constipation Quetiapine Fumarate (Seroquel) 300 mg PO Q12HR [facility] Last Admin: 09/25/18 10:06 Dose: 300 mg Documented by: Spironolactone (Aldactone) 25 mg PO QDAY [facility] Last Admin: 09/25/18 10:06 Dose: 25 mg Documented by: Trazodone HCl (Desyrel) 50 mg PO QHS [facility] Zolpidem Tartrate (Ambien) 5 mg PO QHS PRN PRN Reason: Insomnia Last Admin: 09/24/18 23:42 Dose: 5 mg Documented by: Review of Systems ROS unobtainable: due to mental status Physical Examination Vital Signs Temp Pulse Resp BP Pulse Ox 97.7 F 120 H 19 175/105 94 09/24/18 11:27 09/24/18 11:27 09/24/18 11:27 09/24/18 11:27 09/24/18 11:27 General appearance: mild distress HEENT: Positive: PERRL Neck: Positive: neck supple Cardiac: Positive: Regular Rhythm Lungs: Positive: Decreased Breath Sounds Neuro: Positive: Grossly Intact Abdomen: Positive: Soft Female genitourinary: deferred Skin: Positive: Clear Extremities: Present: +1 Edema Results 09/24/18 11:28 09/24/18 11:28 Cardiac Enzymes 09/24/18 Range/Units 11:28 AST 28 (5-40) units/L Lipids 09/24/18 Range/Units 11:28 Triglycerides 87 (2-149) mg/dL Cholesterol 186 (50-199) mg/dL HDL Cholesterol 93 H (40-59) mg/dL Cholesterol/HDL Ratio 2.00 % Comprehensive Metabolic Panel 09/24/18 Range/Units 11:28 Potassium 5.9 H (3.6-5.0) mmol/L AST 28 (5-40) units/L ALT 21 (7-56) units/L Alkaline Phosphatase 64 (35-129) units/L EKG interpretations - Telemetry EKG Rhythm: Sinus Rhythm Assessment and Plan - Patient Problems (1) Shortness of breath Current Visit: Yes Status: Acute Plan to address problem: Patient presents with shortness of breath due to COPD exacerbation, and mild fluid overload. The isolated mild elevation of troponin is likely a nonspecific finding in this clinical setting. We will continue optimal medical management of nonischemic cardiomyopathy and chronic systolic heart failure.
--- NOTE | 2018-09-25 14:33 | Progress Note ---
Assessment and Plan Assessment and plan: 48-year-old -[place] female with medical history significant for morbid obesity, chronic systolic CHF, COPD, diabetes, sleep apnea presented to the emergency department from [facility] with complaints of shortness of breath. Patient was placed on BiPAP and admitted to MICU. Patient was intubated previously. Patient's also complaining of cough which is productive with white sputum but denied fever, chills. Acute respiratory failure with Hypercarbia and hypoxia - Patient was placed on BiPAP, currently on facemask and will be transitioned to intranasal and oxygen - Improving COPD exacerbation - Patient is on IV Solu-Medrol, antibiotic, DuoNeb's and nebulizer treatment Acute exacerbation of Chronic systolic heart failure, elevated troponin - Cardiology consulted - Recommend medical management Diabetes mellitus - Sliding-scale insulin, ADA diet, Accu-Chek and adjust insulin as needed HLD - Continue statin DVT prophylaxis - On Lovenox Disposition; continue MICU care History Interval history: Patient was seen and evaluated this morning at the bedside, patient states she is feeling much better. Currently patient is on facemask. She said she is hungry. Hospitalist Physical - Physical exam Narrative exam: Not in cardiopulmonary distress. The patient is obese. Vital signs as documented. Head exam is unremarkable. No scleral icterus . Neck is without jugular venous distension, thyromegaly, or carotid bruits. Lungs are clear to auscultation. Cardiac exam reveals regular rate and Rhythm. First and second heart sounds normal. No murmurs, rubs or gallops. Abdominal exam reveals normal bowel sounds, no masses, no organomegaly and no aortic enlargement. Extremities are nonedematous and both femoral and pedal pulses are normal. LINE ASSIGNER: Alert and oriented 3. No focal weakness. - Constitutional Vitals: Temp Pulse Resp BP Pulse Ox 99.5 F 113 H 24 113/66 94 09/25/18 11:57 09/25/18 12:58 09/25/18 12:58 09/25/18 08:21 09/25/18 08:21 General appearance: Present: mild distress Results - Labs CBC & Chem 7: 09/24/18 11:28 09/24/18 11:28 Labs: Laboratory Last Values WBC 9.9 K/mm3 (4.5-11.0) 09/24/18 11:28 RBC 4.37 M/mm3 (3.65-5.03) 09/24/18 11:28 Hgb 13.1 gm/dl (10.1-14.3) 09/24/18 11:28 Hct 42.6 % (30.3-42.9) 09/24/18 11:28 MCV 97 fl (79-97) 09/24/18 11:28 MCH 30 pg (28-32) 09/24/18 11:28 MCHC 31 % (30-34) 09/24/18 11:28 RDW 17.0 % (13.2-15.2) H 09/24/18 11:28 Plt Count 149 K/mm3 (140-440) 09/24/18 11:28 Add Manual Diff Complete 09/24/18 11:28 Total Counted 100 09/24/18 11:28 Seg Neuts % (Manual) 77.0 % (40.0-70.0) H 09/24/18 11:28 0 % 09/24/18 11:28 16.0 % (13.4-35.0) 09/24/18 11:28 Reactive Lymphs % (Man) 0 % 09/24/18 11:28 3.0 % (0.0-7.3) 09/24/18 11:28 1.0 % (0.0-4.3) 09/24/18 11:28 0 % (0.0-1.8) 09/24/18 11:28 0 % 09/24/18 11:28 3.0 % 09/24/18 11:28 0 % 09/24/18 11:28 0 % 09/24/18 11:28 Nucleated RBC % Not Reportable 09/24/18 11:28 Seg Neutrophils # Man 7.6 K/mm3 (1.8-7.7) 09/24/18 11:28 Band Neutrophils # 0.0 K/mm3 09/24/18 11:28 1.6 K/mm3 (1.2-5.4) 09/24/18 11:28 Abs React Lymphs (Man) 0.0 K/mm3 09/24/18 11:28 0.3 K/mm3 (0.0-0.8) 09/24/18 11:28 0.1 K/mm3 (0.0-0.4) 09/24/18 11:28 0.0 K/mm3 (0.0-0.1) 09/24/18 11:28 0.0 K/mm3 09/24/18 11:28 0.3 K/mm3 09/24/18 11:28 0.0 K/mm3 09/24/18 11:28 Blast Cells # 0.0 K/mm3 09/24/18 11:28 WBC Morphology Not Reportable 09/24/18 11:28 Hypersegmented Neuts Not Reportable 09/24/18 11:28 Hyposegmented Neuts Not Reportable 09/24/18 11:28 Hypogranular Neuts Not Reportable 09/24/18 11:28 Not Reportable 09/24/18 11:28 Not Reportable 09/24/18 11:28 Not Reportable 09/24/18 11:28 Not Reportable 09/24/18 11:28 Not Reportable 09/24/18 11:28 Not Reportable 09/24/18 11:28 Consistent w auto 09/24/18 11:28 Not Reportable 09/24/18 11:28 Plt Clumps, EDTA Not Reportable 09/24/18 11:28 Not Reportable 09/24/18 11:28 Not Reportable 09/24/18 11:28 Not Reportable 09/24/18 11:28 Plt Morphology Comment Not Reportable 09/24/18 11:28 RBC Morphology Not Reportable 09/24/18 11:28 Dimorphic RBCs Not Reportable 09/24/18 11:28 Not Reportable 09/24/18 11:28 Not Reportable 09/24/18 11:28 Few 09/24/18 11:28 Few 09/24/18 11:28 Not Reportable 09/24/18 11:28 Not Reportable 09/24/18 11:28 Not Reportable 09/24/18 11:28 Not Reportable 09/24/18 11:28 Not Reportable 09/24/18 11:28 Not Reportable 09/24/18 11:28 Not Reportable 09/24/18 11:28 Not Reportable 09/24/18 11:28 Not Reportable 09/24/18 11:28 Not Reportable 09/24/18 11:28 Not Reportable 09/24/18 11:28 Not Reportable 09/24/18 11:28 Not Reportable 09/24/18 11:28 Not Reportable 09/24/18 11:28 Not Reportable 09/24/18 11:28 Acanthocytes (Spur) Not Reportable 09/24/18 11:28 Rouleaux Not Reportable 09/24/18 11:28 Not Reportable 09/24/18 11:28 Not Reportable 09/24/18 11:28 Not Reportable 09/24/18 11:28 Not Reportable 09/24/18 11:28 Hem Pathologist Commnt No 09/24/18 11:28 PT 13.5 Sec. (12.2-14.9) 09/24/18 11:28 INR 0.97 (0.87-1.13) 09/24/18 11:28 APTT 25.8 Sec. (24.2-36.6) 09/24/18 11:28 POC ABG pH 7.375 (7.35-7.45) 09/24/18 17:11 POC ABG pO2 61 (80-105) L 09/24/18 17:11 POC ABG HCO3 44.4 (22-26 mml/L) 09/24/18 17:11 POC ABG Total CO2 47 (23-27mmol/L) 09/24/18 17:11 POC ABG O2 Sat 89 09/24/18 17:11 POC ABG Base Excess 19 ((-2) - (+3)mmol/L) 09/24/18 17:11 50 % 09/24/18 17:11 Sodium 137 mmol/L (137-145) 09/24/18 11:28 Potassium 5.9 mmol/L (3.6-5.0) H 09/24/18 11:28 Chloride 92.3 mmol/L (98-107) L 09/24/18 11:28 Carbon Dioxide 31 mmol/L (22-30) H 09/24/18 11:28 20 mmol/L 09/24/18 11:28 BUN 13 mg/dL (7-17) 09/24/18 11:28 0.7 mg/dL (0.7-1.2) 09/24/18 11:28 Estimated GFR > 60 ml/min 09/24/18 11:28 19 % 09/24/18 11:28 Glucose 280 mg/dL (65-100) H 09/24/18 11:28 POC Glucose 307 (70-105) H 09/25/18 11:48 Calcium 9.1 mg/dL (8.4-10.2) 09/24/18 11:28 0.20 mg/dL (0.1-1.2) 09/24/18 11:28 AST 28 units/L (5-40) 09/24/18 11:28 ALT 21 units/L (7-56) 09/24/18 11:28 64 units/L (35-129) 09/24/18 11:28 0.110 ng/mL (0.00-0.029) H* D 09/24/18 16:55 NT-Pro-B Natriuret Pep 2191 pg/mL (0-450) H 09/24/18 11:28 6.6 g/dL (6.3-8.2) 09/24/18 11:28 3.5 g/dL (3.9-5) L 09/24/18 11:28 1.1 % 09/24/18 11:28 Triglycerides 87 mg/dL (2-149) 09/24/18 11:28 Cholesterol 186 mg/dL (50-199) 09/24/18 11:28 73 mg/dL (50-130) 09/24/18 11:28 93 mg/dL (40-59) H 09/24/18 11:28 2.00 % 09/24/18 11:28 Active Medications - Current Medications Current Medications: Generic Name Dose Route Start Last Admin Trade Name Freq PRN Reason Stop Dose Admin Acetaminophen 650 mg 09/24/18 22:38 09/24/18 23:42 Tylenol PO 650 mg Q12H PRN Administration Non Cardiac Pain or Temp>100.5 Albuterol 2.5 mg 09/24/18 22:29 Proventil IH Q4HRT PRN Shortness Of Breath Albuterol/Ipratropium 1 ampul 09/25/18 08:00 09/25/18 12:43 Duoneb *Not For Prn Use* IH 1 ampul QIDRT JOE Administration Aspirin 325 mg 09/25/18 10:00 09/25/18 10:06 Ecotrin PO 325 mg DAILY JOE Administration Atorvastatin Calcium 40 mg 09/25/18 22:00 Lipitor PO QHS [facility] Budesonide 0.5 mg 09/24/18 22:45 09/25/18 08:24 Pulmicort IH 0.5 mg Q12HRT JOE Administration Bupropion HCl 100 mg 09/25/18 10:00 Wellbutrin Sr PO DAILY JOE Carbamazepine 200 mg 09/25/18 10:00 09/25/18 10:08 Tegretol PO 200 mg DAILY JOE Administration Carvedilol 6.25 mg 09/24/18 23:00 09/25/18 10:06 Coreg PO 6.25 mg BID JOE Administration Enoxaparin Sodium 40 mg 09/25/18 22:00 Lovenox SUB-Q QDAY@2200 [facility] Famotidine 20 mg 09/25/18 10:00 09/25/18 10:06 Pepcid PO 20 mg DAILY [facility] Administration Fluticasone Propionate 50 mcg 09/25/18 10:00 Flonase NS BID [facility] Hydralazine HCl 37.5 mg 09/24/18 23:00 09/25/18 07:00 Apresoline PO Not Given Q8HR [facility] Ceftriaxone Sodium 2 gm in 100 mls @ 200 mls/hr 09/25/18 10:00 09/25/18 10:07 Rocephin/Ns 2 Gm/100 Ml IV 200 mls/hr Q24HR [facility] Administration Protocol Azithromycin 500 mg/ Sodium 250 mls @ 250 mls/hr 09/25/18 10:00 09/25/18 10:08 Chloride IV 250 mls/hr Q24HR [facility] Administration Insulin Glargine 10 units 09/25/18 22:00 Lantus SUB-Q QHS [facility] Insulin Human Lispro 0 unit 09/25/18 07:30 Humalog SUB-Q [facility] Protocol Insulin Human Regular 0 units 09/25/18 07:30 Humulin R SUB-Q [facility] Protocol Isosorbide Dinitrate 20 mg 09/24/18 23:00 09/25/18 07:00 Isordil Titradose PO Not Given Q8HR [facility] Loratadine 10 mg 09/25/18 10:00 09/25/18 10:06 Claritin PO 10 mg DAILY [facility] Administration Lorazepam 0.5 mg 09/25/18 10:00 09/25/18 10:05 Ativan PO 0.5 mg DAILY [facility]E Administration Lorazepam 1 mg 09/25/18 22:00 Ativan PO QHS [facility]E Losartan Potassium 50 mg 09/25/18 10:00 09/25/18 10:06 Cozaar PO 50 mg QDAY [facility]E Administration Metformin HCl 1,000 mg 09/25/18 08:00 09/25/18 10:07 Glucophage PO 1,000 mg BIDDIAB JOE Administration Methadone HCl 5 mg 09/25/18 10:00 09/25/18 10:05 Dolophine PO 5 mg BID JOE Administration Methylprednisolone Sodium Succinate 125 mg 09/24/18 23:00 09/25/18 06:08 Solu-Medrol IV 125 mg Q8HR [facility]E Administration Montelukast Sodium 10 mg 09/25/18 22:00 Singulair PO QHS [facility]E Polyethylene Glycol 17 gm 09/24/18 22:38 Miralax 3350 PO QDAY PRN Constipation Quetiapine Fumarate 300 mg 09/24/18 23:00 09/25/18 10:06 Seroquel PO 300 mg Q12HR [facility]E Administration Spironolactone 25 mg 09/25/18 10:00 09/25/18 10:06 Aldactone PO 25 mg QDAY JOE Administration Trazodone HCl 50 mg 09/25/18 22:00 Desyrel PO QHS [facility] Zolpidem Tartrate 5 mg 09/24/18 22:38 09/24/18 23:42 Ambien PO 5 mg QHS PRN Administration Insomnia
[2018-09-25] MEDS: WELLBUTRIN SR PO SCH (14:48)
--- NOTE | 2018-09-25 15:19 | Consultation ---
History of Present Illness Consult date: 09/25/18 Requesting physician: JENNY JIMENEZ Reason for consult: other (acute respiatory failure secondary to volume overload) History of present illness: 48 y/o female, appears older than stated age, morbidly obese and extremely poor historian admitted with hypoxic respiratory failure. Patient currently resides in a halfway, not exactly sure why, but is very upset about this home not providing her with her meds, specifically her ativan. She endorses a positive history of sleep apnea and does not wear positive pressure at night. She also states that she does have COPD as well but takes no medication for it as the f acility (halfway) will not give it to her. Past History Past Medical History: heart failure, hypertension Medications and Allergies Allergies Allergy/AdvReac Type Severity Reaction Status Date / Time Penicillins Allergy Unknown Verified 08/24/18 22:32 Sulfa (Sulfonamide Allergy Unknown Verified 08/24/18 22:32 Antibiotics) sulfabenzamide Allergy Unknown Verified 08/24/18 22:32 Home Medications Medication Instructions Recorded Confirmed Last Taken Type Metformin HCl [Glucophage] 1,000 mg PO BID 03/28/18 09/24/18 Unknown History AtorvaSTATin [Lipitor] 40 mg PO QHS tablet 05/25/18 09/24/18 Unknown Rx Carvedilol [Coreg] 6.25 mg PO BID tablet 05/25/18 09/24/18 Unknown Rx Famotidine [Pepcid] 20 mg PO DAILY tablet 05/25/18 09/24/18 Unknown Rx Isosorbide Dinitrate [Isordil 20 mg PO Q8H tablet 05/25/18 09/24/18 Unknown Rx Titradose] Losartan [Cozaar] 50 mg PO QDAY tablet 05/25/18 09/24/18 Unknown Rx Methadone [Dolophine] 5 mg PO BID tablet 05/25/18 09/24/18 Unknown Rx Montelukast [Singulair] 10 mg PO QHS tablet 05/25/18 09/24/18 Unknown Rx Polyethylene Glycol 3350 [Miralax 17 gm PO QDAY PRN powd.pack 05/25/18 09/24/18 Unknown Rx 3350] Spironolactone [Aldactone] 25 mg PO QDAY tablet 05/25/18 09/24/18 Unknown Rx hydrALAZINE [Apresoline TAB] 37.5 mg PO Q8H tablet 05/25/18 09/24/18 Unknown Rx Budesonide [Pulmicort Respules] 0.5 mg IH Q12HR 08/25/18 09/24/18 Unknown History Insulin Detemir [Levemir VIAL] 10 units SUB-Q QHS 08/25/18 09/24/18 Unknown History Insulin Regular, Human [HumuLIN R] See Protocol SUB-Q ACHS 08/25/18 09/24/18 Unknown History Sorbitol 70% 30 ml PO Q12H 08/25/18 09/24/18 Unknown History carBAMazepine [Carbamazepine] 200 mg PO DAILY 08/25/18 09/24/18 Unknown History traZODone [Desyrel] 50 mg PO QHS 08/25/18 09/24/18 Unknown History Acetaminophen [Tylenol] 650 mg PO Q12H PRN 09/24/18 09/24/18 Unknown History Aspirin EC 325 mg PO DAILY 09/24/18 09/24/18 Unknown History Fluticasone [Flonase] 1 spray NS BID 09/24/18 09/24/18 Unknown History Ipratropium/Albuterol Sulfate 1 ampul IH Q8HR 09/24/18 09/24/18 Unknown History [DUONEB *Not for PRN Use*] LORazepam [Ativan] 0.5 mg PO DAILY 09/24/18 09/24/18 Unknown History LORazepam [Ativan] 1 mg PO QHS 09/24/18 09/24/18 Unknown History Loratadine [Claritin] 10 mg PO DAILY 09/24/18 09/24/18 Unknown History Quetiapine Fumarate [SEROquel] 300 mg PO Q12H 09/24/18 09/24/18 Unknown History Sennosides Tab [Senokot] 17.2 mg PO HS 09/24/18 09/24/18 Unknown History Zolpidem [Ambien] 5 mg PO QHS PRN 09/24/18 09/24/18 Unknown History buPROPion SR [Wellbutrin SR] 100 mg PO DAILY 09/24/18 09/24/18 Unknown History guaiFENesin 400 mg PO BID 09/24/18 09/24/18 Unknown History oxyCODONE /ACETAMINOPHEN [Percocet 1 tab PO DAILY@1700 09/24/18 09/24/18 Unknown History 5/325] predniSONE [Deltasone] 40 mg PO DAILY 09/24/18 09/24/18 Unknown History Active Meds: Active Medications Acetaminophen (Tylenol) 650 mg PO Q12H PRN PRN Reason: Non Cardiac Pain or Temp>100.5 Last Admin: 09/24/18 23:42 Dose: 650 mg Documented by: Albuterol (Proventil) 2.5 mg IH Q4HRT PRN PRN Reason: Shortness Of Breath Albuterol/Ipratropium (Duoneb *Not For Prn Use*) 1 ampul IH QIDRT [facility] Last Admin: 09/25/18 12:43 Dose: 1 ampul Documented by: Aspirin (Ecotrin) 325 mg PO DAILY [facility] Last Admin: 09/25/18 10:06 Dose: 325 mg Documented by: Atorvastatin Calcium (Lipitor) 40 mg PO QHS [facility] Budesonide (Pulmicort) 0.5 mg IH Q12HRT [facility] Last Admin: 09/25/18 08:24 Dose: 0.5 mg Documented by: Bupropion HCl (Wellbutrin Sr) 100 mg PO DAILY [facility] Last Admin: 09/25/18 14:48 Dose: 100 mg Documented by: Carbamazepine (Tegretol) 200 mg PO DAILY [facility] Last Admin: 09/25/18 10:08 Dose: 200 mg Documented by: Carvedilol (Coreg) 6.25 mg PO BID [facility] Last Admin: 09/25/18 10:06 Dose: 6.25 mg Documented by: Enoxaparin Sodium (Lovenox) 40 mg SUB-Q QDAY@2200 [facility] Famotidine (Pepcid) 20 mg PO DAILY [facility] Last Admin: 09/25/18 10:06 Dose: 20 mg Documented by: Fluticasone Propionate (Flonase) 50 mcg NS BID [facility] Last Admin: 09/25/18 11:00 Dose: 50 mcg Documented by: Furosemide (Lasix) 20 mg IV ONCE ONE Stop: 09/25/18 16:15 Hydralazine HCl (Apresoline) 37.5 mg PO Q8HR [facility] Last Admin: 09/25/18 14:43 Dose: Not Given Documented by: Ceftriaxone Sodium (Rocephin/Ns 2 Gm/100 Ml) 2 gm in 100 mls @ 200 mls/hr IV Q24HR [facility]; Protocol Last Admin: 09/25/18 10:07 Dose: 200 mls/hr Documented by: Azithromycin 500 mg/ Sodium (Chloride) 250 mls @ 250 mls/hr IV Q24HR [facility] Last Admin: 09/25/18 10:08 Dose: 250 mls/hr Documented by: Insulin Glargine (Lantus) 10 units SUB-Q QHS [facility] Insulin Human Lispro (Humalog) 0 unit SUB-Q [facility]; Protocol Last Admin: 09/25/18 14:38 Dose: 10 unit Documented by: Insulin Human Regular (Humulin R) 0 units SUB-Q [facility]; Protocol Last Admin: 09/25/18 14:42 Dose: Not Given Documented by: Isosorbide Dinitrate (Isordil Titradose) 20 mg PO Q8HR [facility] Last Admin: 09/25/18 14:44 Dose: Not Given Documented by: Loratadine (Claritin) 10 mg PO DAILY [facility] Last Admin: 09/25/18 10:06 Dose: 10 mg Documented by: Lorazepam (Ativan) 0.5 mg PO DAILY [facility] Last Admin: 09/25/18 10:05 Dose: 0.5 mg Documented by: Lorazepam (Ativan) 1 mg PO QHS [facility] Losartan Potassium (Cozaar) 50 mg PO QDAY [facility] Last Admin: 09/25/18 10:06 Dose: 50 mg Documented by: Metformin HCl (Glucophage) 1,000 mg PO BIDDIAB [facility] Last Admin: 09/25/18 10:07 Dose: 1,000 mg Documented by: Methadone HCl (Dolophine) 5 mg PO BID [facility] Last Admin: 09/25/18 10:05 Dose: 5 mg Documented by: Methylprednisolone Sodium Succinate (Solu-Medrol) 60 mg IV Q8HR [facility] Montelukast Sodium (Singulair) 10 mg PO QHS [facility] Polyethylene Glycol (Miralax 3350) 17 gm PO QDAY PRN PRN Reason: Constipation Quetiapine Fumarate (Seroquel) 300 mg PO Q12HR [facility] Last Admin: 09/25/18 10:06 Dose: 300 mg Documented by: Spironolactone (Aldactone) 25 mg PO QDAY [facility] Last Admin: 09/25/18 10:06 Dose: 25 mg Documented by: Trazodone HCl (Desyrel) 50 mg PO QHS [facility] Zolpidem Tartrate (Ambien) 5 mg PO QHS PRN PRN Reason: Insomnia Last Admin: 09/24/18 23:42 Dose: 5 mg Documented by: Review of Systems All systems: negative Physical Examination Vital signs: Vital Signs Temp Pulse Resp BP Pulse Ox 97.7 F 120 H 19 175/105 94 09/24/18 11:27 09/24/18 11:27 09/24/18 11:27 09/24/18 11:27 09/24/18 11:27 General appearance: no acute distress, alert, other (obese and appears older than stated age) Eyes: non-icteric ENT: oropharynx moist Neck: supple, other (large in circumference) Effort: normal Ascultation: Bilateral: diminished breath sounds, rales (bibasilar) Percussion: Bilateral: not dull Tactile fremitus: Bilateral: normal Cardiovascular: regular rate and rhythm Gastrointestinal: soft Extremities: edema Results - Laboratory Findings CBC and BMP: 09/26/18 05:23 09/26/18 05:23 ABG POC ABG pH 7.375 (7.35-7.45) 09/24/18 17:11 POC ABG pO2 61 (80-105) L 09/24/18 17:11 POC ABG HCO3 44.4 (22-26 mml/L) 09/24/18 17:11 POC ABG Total CO2 47 (23-27mmol/L) 09/24/18 17:11 POC ABG O2 Sat 89 09/24/18 17:11 PT/INR, D-dimer PT 13.5 Sec. (12.2-14.9) 09/24/18 11:28 INR 0.97 (0.87-1.13) 09/24/18 11:28 Abnormal lab findings: Abnormal Labs 09/24/18 09/24/18 09/24/18 11:28 11:28 12:46 RDW 17.0 H Seg Neuts % (Manual) 77.0 H POC ABG pH 7.256 L POC ABG pO2 161 H Potassium 5.9 H Chloride 92.3 L Carbon Dioxide 31 H Glucose 280 H POC Glucose Troponin T 0.069 H NT-Pro-B Natriuret Pep 2191 H Albumin 3.5 L HDL Cholesterol 93 H 09/24/18 09/24/18 09/24/18 14:15 14:46 16:55 RDW Seg Neuts % (Manual) POC ABG pH 7.336 L POC ABG pO2 68 L Potassium Chloride Carbon Dioxide Glucose POC Glucose Troponin T 0.067 H 0.110 H* D NT-Pro-B Natriuret Pep Albumin HDL Cholesterol 09/24/18 09/24/18 09/25/18 17:11 23:51 07:27 RDW Seg Neuts % (Manual) POC ABG pH POC ABG pO2 61 L Potassium Chloride Carbon Dioxide Glucose POC Glucose 160 H 231 H Troponin T NT-Pro-B Natriuret Pep Albumin HDL Cholesterol 09/25/18 11:48 RDW Seg Neuts % (Manual) POC ABG pH POC ABG pO2 Potassium Chloride Carbon Dioxide Glucose POC Glucose 307 H Troponin T NT-Pro-B Natriuret Pep Albumin HDL Cholesterol - Diagnostic Findings Chest x-ray: image reviewed (pulmonary edema) Assessment and Plan 48 y/o male with known systolic heart failure, and COPD, admitted with acute respiratory failure secondary to volume overload with COPD exacerbation. 1. Change steroids to 60q8 2. Gave an additional dose of lasix today (20Mg IV x1) 3. Wean FiO2 for sats >88%
[2018-09-25] MEDS ORDERED: LASIX IV ONE (16:14)
[2018-09-25 16:49] LABS: BUN/Creatinine Ratio 21; Blood Urea Nitrogen 19 mg/dL (7-17); Calcium 8.3 mg/dL (8.4-10.2); Hemolysis Index 7
[2018-09-25] MEDS ORDERED: LASIX ONE (18:29)
[2018-09-25] MEDS ORDERED: INSULIN DETEMIR 10 UNIT SUB-Q SCH (22:00)
[2018-09-25] MEDS: DESYREL PO SCH (22:17)
[2018-09-25] MEDS: LOVENOX SUB-Q SCH (22:18)
[2018-09-25] MEDS: AMBIEN PO PRN (22:25)
[2018-09-25] MEDS: TYLENOL PO PRN (22:25)
[2018-09-25] MEDS: LANTUS SUB-Q SCH (23:12)
[2018-09-25] MEDS: SINGULAIR PO SCH (23:12)
[2018-09-26] MEDS: APRESOLINE PO SCH ×3 (05:20→22:00)
[2018-09-26 06:07] LABS: BUN/Creatinine Ratio 27; Blood Urea Nitrogen 24 mg/dL (7-17); Hemolysis Index 171
[2018-09-26 06:14] LABS: Hematocrit 38.1 % (30.3-42.9); Hemoglobin 12.1 gm/dl (10.1-14.3); Mean Corpuscular HGB Conc 32 % (30-34); Mean Corpuscular Volume 96 fl (79-97); Red Blood Count 3.98 M/mm3 (3.65-5.03); Red Cell Distribution Width 16.5 % (13.2-15.2)
[2018-09-26 06:29] LABS: Platelet Count 129 K/mm3 (140-440)
[2018-09-26] MEDS: SOLU-Medrol IV SCH ×3 (06:30→22:01)
[2018-09-26] MEDS: ISORDIL TITRADOSE PO SCH ×3 (06:31→22:02)
[2018-09-26 06:53] LABS: Anisocytosis 1+; Band Neutrophils # (Manual) 0.2 K/mm3; Basophils % (Manual) 0 % (0.0-1.8); Eosinophils % (Manual) 0 % (0.0-4.3); Total Cells Counted 100
[2018-09-26 06:54] LABS: Platelet Estimate Consistent w Auto; Poikilocytosis 1+
[2018-09-26] MEDS: GLUCOPHAGE PO SCH ×2 (08:00→17:44)
[2018-09-26] MEDS ORDERED: LASIX IV ONE (08:35)
--- NOTE | 2018-09-26 08:44 | Progress Note ---
Assessment and Plan 48 y/o male with known systolic heart failure, and COPD, admitted with acute respiratory failure secondary to volume overload with COPD exacerbation. 1. Continue steroids at 60q8 2. Gave lasix 40mg IV again this am. 3. Wean FiO2 for sats >88% 4. PPV at night Subjective Date of service: 09/26/18 Interval history: Still positive based on I/O in chart. Wore PPV last night. Objective Vital Signs - 12hr 09/25/18 09/25/18 09/25/18 20:43 22:00 22:02 Temperature 99.5 F Pulse Rate Pulse Rate [ 108 H Anterior Bilateral Throughout] Pulse Rate [ From Monitor] Respiratory Rate Respiratory 27 H Rate [Anterior Bilateral Throughout] Blood Pressure Blood Pressure [Right] O2 Sat by Pulse 93 Oximetry 09/25/18 09/25/18 09/26/18 23:11 23:28 00:00 Temperature Pulse Rate 98 H 98 H 104 H Pulse Rate [ Anterior Bilateral Throughout] Pulse Rate [ 98 H From Monitor] Respiratory 26 H 22 Rate Respiratory Rate [Anterior Bilateral Throughout] Blood Pressure Blood Pressure 103/55 [Right] O2 Sat by Pulse 93 95 Oximetry 09/26/18 09/26/18 09/26/18 03:00 04:00 04:07 Temperature 98.9 F Pulse Rate 104 H 92 H Pulse Rate [ Anterior Bilateral Throughout] Pulse Rate [ 91 H From Monitor] Respiratory 16 Rate Respiratory Rate [Anterior Bilateral Throughout] Blood Pressure Blood Pressure 101/58 [Right] O2 Sat by Pulse 95 Oximetry 09/26/18 09/26/18 05:20 06:31 Temperature Pulse Rate 92 H 94 H Pulse Rate [ Anterior Bilateral Throughout] Pulse Rate [ From Monitor] Respiratory Rate Respiratory Rate [Anterior Bilateral Throughout] Blood Pressure 101/58 115/68 Blood Pressure [Right] O2 Sat by Pulse Oximetry Constitutional: no acute distress, alert, other (obese and appears older than stated age) Eyes: non-icteric ENT: oropharynx moist Neck: supple, other (large in circumference) Effort: normal Ascultation: Bilateral: diminished breath sounds, rales (bibasilar) Percussion: Bilateral: not dull Tactile fremitus: Bilateral: normal Cardiovascular: regular rate and rhythm Gastrointestinal: soft Extremities: edema CBC and BMP: 09/26/18 05:23 09/26/18 05:23 ABG, PT/INR, D-dimer: ABG POC ABG pH 7.375 (7.35-7.45) 09/24/18 17:11 POC ABG pO2 61 (80-105) L 09/24/18 17:11 POC ABG HCO3 44.4 (22-26 mml/L) 09/24/18 17:11 POC ABG Total CO2 47 (23-27mmol/L) 09/24/18 17:11 POC ABG O2 Sat 89 09/24/18 17:11 PT/INR, D-dimer PT 13.5 Sec. (12.2-14.9) 09/24/18 11:28 INR 0.97 (0.87-1.13) 09/24/18 11:28 Abnormal lab findings: Abnormal Labs 09/24/18 09/24/18 09/24/18 11:28 11:28 12:46 WBC RDW 17.0 H Plt Count Seg Neuts % (Manual) 77.0 H Lymphocytes % (Manual) Seg Neutrophils # Man POC ABG pH 7.256 L POC ABG pO2 161 H Potassium 5.9 H Chloride 92.3 L Carbon Dioxide 31 H BUN Glucose 280 H POC Glucose Calcium Troponin T 0.069 H NT-Pro-B Natriuret Pep 2191 H Albumin 3.5 L HDL Cholesterol 93 H 09/24/18 09/24/18 09/24/18 14:15 14:46 16:55 WBC RDW Plt Count Seg Neuts % (Manual) Lymphocytes % (Manual) Seg Neutrophils # Man POC ABG pH 7.336 L POC ABG pO2 68 L Potassium Chloride Carbon Dioxide BUN Glucose POC Glucose Calcium Troponin T 0.067 H 0.110 H* D NT-Pro-B Natriuret Pep Albumin HDL Cholesterol 09/24/18 09/24/18 09/25/18 17:11 23:51 07:27 WBC RDW Plt Count Seg Neuts % (Manual) Lymphocytes % (Manual) Seg Neutrophils # Man POC ABG pH POC ABG pO2 61 L Potassium Chloride Carbon Dioxide BUN Glucose POC Glucose 160 H 231 H Calcium Troponin T NT-Pro-B Natriuret Pep Albumin HDL Cholesterol 09/25/18 09/25/18 09/25/18 11:48 15:47 16:24 WBC RDW Plt Count Seg Neuts % (Manual) Lymphocytes % (Manual) Seg Neutrophils # Man POC ABG pH POC ABG pO2 Potassium Chloride 92.2 L Carbon Dioxide 40 H D BUN 19 H Glucose 183 H POC Glucose 307 H 272 H Calcium 8.3 L Troponin T NT-Pro-B Natriuret Pep Albumin HDL Cholesterol 09/25/18 09/26/18 09/26/18 20:13 05:23 05:23 WBC 17.3 H RDW 16.5 H Plt Count 129 L Seg Neuts % (Manual) 87.0 H Lymphocytes % (Manual) 8.0 L Seg Neutrophils # Man 15.1 H POC ABG pH POC ABG pO2 Potassium 5.1 H Chloride 90.2 L Carbon Dioxide 40 H BUN 24 H Glucose 288 H POC Glucose 144 H Calcium 8.0 L Troponin T NT-Pro-B Natriuret Pep Albumin HDL Cholesterol
[2018-09-26] MEDS: PEPCID PO SCH (10:00)
[2018-09-26] MEDS: COZAAR PO SCH (10:22)
[2018-09-26] MEDS: ALDACTONE PO SCH (10:23)
[2018-09-26] MEDS: ECOTRIN PO SCH (10:24)
[2018-09-26] MEDS: FLONASE NS SCH ×2 (10:24→22:03)
[2018-09-26] MEDS: CLARITIN PO SCH (10:24)
[2018-09-26] MEDS: ATIVAN PO SCH ×2 (10:24→22:01)
[2018-09-26] MEDS: ROCEPHIN/NS 2 GM/100 ML 2 GM/100 ML BAG IV SCH (10:25)
[2018-09-26] MEDS: WELLBUTRIN SR PO SCH (10:27)
[2018-09-26] MEDS: HumaLOG SUB-Q SCH ×4 (10:30→22:01)
[2018-09-26] MEDS: COREG PO SCH ×2 (10:30→22:02)
[2018-09-26] MEDS: MIRALAX 3350 PO PRN (10:38)
[2018-09-26] MEDS: DOLOPHINE PO SCH ×2 (10:51→22:02)
[2018-09-26] MEDS: DUONEB *Not for PRN Use IH SCH ×4 (11:06→20:25)
[2018-09-26] MEDS: PULMICORT IH SCH ×2 (11:06→20:25)
--- NOTE | 2018-09-26 12:00 | Progress Note ---
Assessment and Plan Assessment and plan: 48-year-old -[place] female with medical history significant for morbid obesity, chronic systolic CHF, COPD, diabetes, sleep apnea presented to the emergency department from [facility] with complaints of shortness of breath. Patient was placed on BiPAP and admitted to MICU. Patient was intubated previously. Patient's also complaining of cough which is productive with white sputum but denied fever, chills. Acute respiratory failure with Hypercarbia and hypoxia - Patient was placed on BiPAP, currently on facemask and will be transitioned to intranasal and oxygen - Improving COPD exacerbation - Patient is on IV Solu-Medrol, antibiotic, DuoNeb's and nebulizer treatment Acute exacerbation of Chronic systolic heart failure, elevated troponin - Cardiology consulted - Recommend medical management Diabetes mellitus - Sliding-scale insulin, ADA diet, Accu-Chek and adjust insulin as needed HLD - Continue statin DVT prophylaxis - On Lovenox Disposition; continue MICU care History Interval history: The patient continued to desaturate when eating, wheezing and shortness of breath reported by patient She denies chest pain She admits to cough productive of thick yellow sputum Denies fevers, denies vomiting Hospitalist Physical - Physical exam Narrative exam: General.: Mild to moderate distress due to shortness of breath HEENT: Moist mucous membranes, extraocular muscles intact, no lymphadenopathy Neck: supple Cardiac: S1-S2 heard Lungs: Bilateral wheezing, decreased air entry Abdomen: soft , nontender, nondistended, bowel sounds positive Extremities: no edema clubbing or cyanosis Skin: no rash or lesions Neurologic: no gross focal deficits, lacks insight, poor cognition; apparently patient had brain surgery in the past and has not been the same since Psych: calm, and cooperative - Constitutional Vitals: Temp Pulse Resp BP Pulse Ox 98 F 99 H 16 124/80 95 09/26/18 08:00 09/26/18 10:30 09/26/18 04:00 09/26/18 10:30 09/26/18 04:00 General appearance: Present: mild distress Results - Labs CBC & Chem 7: 09/26/18 05:23 09/26/18 05:23 Labs: Laboratory Last Values WBC 17.3 K/mm3 (4.5-11.0) H 09/26/18 05:23 RBC 3.98 M/mm3 (3.65-5.03) 09/26/18 05:23 Hgb 12.1 gm/dl (10.1-14.3) 09/26/18 05:23 Hct 38.1 % (30.3-42.9) 09/26/18 05:23 MCV 96 fl (79-97) 09/26/18 05:23 MCH 30 pg (28-32) 09/26/18 05:23 MCHC 32 % (30-34) 09/26/18 05:23 RDW 16.5 % (13.2-15.2) H 09/26/18 05:23 Plt Count 129 K/mm3 (140-440) L 09/26/18 05:23 Lymph % (Auto) Process Controls Technician 09/26/18 05:23 [place] % (Auto) Process Controls Technician 09/26/18 05:23 Eos % (Auto) Process Controls Technician 09/26/18 05:23 Baso % (Auto) Process Controls Technician 09/26/18 05:23 Lymph # Process Controls Technician 09/26/18 05:23 [place] # Process Controls Technician 09/26/18 05:23 Eos # Process Controls Technician 09/26/18 05:23 Baso # Process Controls Technician 09/26/18 05:23 Add Manual Diff Complete 09/26/18 05:23 Total Counted 100 09/26/18 05:23 Seg Neutrophils % Process Controls Technician 09/26/18 05:23 Seg Neuts % (Manual) 87.0 % (40.0-70.0) H 09/26/18 05:23 1.0 % 09/26/18 05:23 8.0 % (13.4-35.0) L 09/26/18 05:23 Reactive Lymphs % (Man) 0 % 09/26/18 05:23 4.0 % (0.0-7.3) 09/26/18 05:23 0 % (0.0-4.3) 09/26/18 05:23 0 % (0.0-1.8) 09/26/18 05:23 0 % 09/26/18 05:23 0 % 09/26/18 05:23 0 % 09/26/18 05:23 0 % 09/26/18 05:23 Nucleated RBC % Not Reportable 09/26/18 05:23 Seg Neutrophils # Process Controls Technician 09/26/18 05:23 Seg Neutrophils # Man 15.1 K/mm3 (1.8-7.7) H 09/26/18 05:23 Band Neutrophils # 0.2 K/mm3 09/26/18 05:23 1.4 K/mm3 (1.2-5.4) 09/26/18 05:23 Abs React Lymphs (Man) 0.0 K/mm3 09/26/18 05:23 0.7 K/mm3 (0.0-0.8) 09/26/18 05:23 0.0 K/mm3 (0.0-0.4) 09/26/18 05:23 0.0 K/mm3 (0.0-0.1) 09/26/18 05:23 0.0 K/mm3 09/26/18 05:23 0.0 K/mm3 09/26/18 05:23 0.0 K/mm3 09/26/18 05:23 Blast Cells # 0.0 K/mm3 09/26/18 05:23 WBC Morphology Not Reportable 09/26/18 05:23 Hypersegmented Neuts Not Reportable 09/26/18 05:23 Hyposegmented Neuts Not Reportable 09/26/18 05:23 Hypogranular Neuts Not Reportable 09/26/18 05:23 Not Reportable 09/26/18 05:23 Not Reportable 09/26/18 05:23 Not Reportable 09/26/18 05:23 Not Reportable 09/26/18 05:23 Not Reportable 09/26/18 05:23 Not Reportable 09/26/18 05:23 Consistent w auto 09/26/18 05:23 Not Reportable 09/26/18 05:23 Plt Clumps, EDTA Not Reportable 09/26/18 05:23 Not Reportable 09/26/18 05:23 Not Reportable 09/26/18 05:23 Not Reportable 09/26/18 05:23 Plt Morphology Comment Not Reportable 09/26/18 05:23 RBC Morphology Not Reportable 09/26/18 05:23 Dimorphic RBCs Not Reportable 09/26/18 05:23 Not Reportable 09/26/18 05:23 Not Reportable 09/26/18 05:23 1+ 09/26/18 05:23 1+ 09/26/18 05:23 Not Reportable 09/26/18 05:23 Not Reportable 09/26/18 05:23 Not Reportable 09/26/18 05:23 Not Reportable 09/26/18 05:23 Not Reportable 09/26/18 05:23 Not Reportable 09/26/18 05:23 Not Reportable 09/26/18 05:23 Not Reportable 09/26/18 05:23 Not Reportable 09/26/18 05:23 Not Reportable 09/26/18 05:23 Not Reportable 09/26/18 05:23 Not Reportable 09/26/18 05:23 Not Reportable 09/26/18 05:23 Not Reportable 09/26/18 05:23 Not Reportable 09/26/18 05:23 Acanthocytes (Spur) Not Reportable 09/26/18 05:23 Rouleaux Not Reportable 09/26/18 05:23 Not Reportable 09/26/18 05:23 Not Reportable 09/26/18 05:23 Not Reportable 09/26/18 05:23 Not Reportable 09/26/18 05:23 Hem Pathologist Commnt No 09/26/18 05:23 PT 13.5 Sec. (12.2-14.9) 09/24/18 11:28 INR 0.97 (0.87-1.13) 09/24/18 11:28 APTT 25.8 Sec. (24.2-36.6) 09/24/18 11:28 POC ABG pH 7.375 (7.35-7.45) 09/24/18 17:11 POC ABG pO2 61 (80-105) L 09/24/18 17:11 POC ABG HCO3 44.4 (22-26 mml/L) 09/24/18 17:11 POC ABG Total CO2 47 (23-27mmol/L) 09/24/18 17:11 POC ABG O2 Sat 89 09/24/18 17:11 POC ABG Base Excess 19 ((-2) - (+3)mmol/L) 09/24/18 17:11 50 % 09/24/18 17:11 Sodium 140 mmol/L (137-145) 09/26/18 05:23 Potassium 5.1 mmol/L (3.6-5.0) H 09/26/18 05:23 Chloride 90.2 mmol/L (98-107) L 09/26/18 05:23 Carbon Dioxide 40 mmol/L (22-30) H 09/26/18 05:23 15 mmol/L 09/26/18 05:23 BUN 24 mg/dL (7-17) H 09/26/18 05:23 0.9 mg/dL (0.7-1.2) 09/26/18 05:23 Estimated GFR > 60 ml/min 09/26/18 05:23 27 % 09/26/18 05:23 Glucose 288 mg/dL (65-100) H 09/26/18 05:23 POC Glucose 326 (70-105) H 09/26/18 08:47 Calcium 8.0 mg/dL (8.4-10.2) L 09/26/18 05:23 0.20 mg/dL (0.1-1.2) 09/24/18 11:28 AST 28 units/L (5-40) 09/24/18 11:28 ALT 21 units/L (7-56) 09/24/18 11:28 64 units/L (35-129) 09/24/18 11:28 0.110 ng/mL (0.00-0.029) H* D 09/24/18 16:55 NT-Pro-B Natriuret Pep 2191 pg/mL (0-450) H 09/24/18 11:28 6.6 g/dL (6.3-8.2) 09/24/18 11:28 3.5 g/dL (3.9-5) L 09/24/18 11:28 1.1 % 09/24/18 11:28 Triglycerides 87 mg/dL (2-149) 09/24/18 11:28 Cholesterol 186 mg/dL (50-199) 09/24/18 11:28 73 mg/dL (50-130) 09/24/18 11:28 93 mg/dL (40-59) H 09/24/18 11:28 2.00 % 09/24/18 11:28 Active Medications - Current Medications Current Medications: Generic Name Dose Route Start Last Admin Trade Name Freq PRN Reason Stop Dose Admin Acetaminophen 650 mg 09/24/18 22:38 09/25/18 22:25 Tylenol PO 650 mg Q12H PRN Administration Non Cardiac Pain or Temp>100.5 Albuterol 2.5 mg 09/24/18 22:29 Proventil IH Q4HRT PRN Shortness Of Breath Albuterol/Ipratropium 1 ampul 09/25/18 08:00 09/25/18 20:25 Duoneb *Not For Prn Use* IH 1 ampul QIDRT JOE Administration Aspirin 325 mg 09/25/18 10:00 09/26/18 10:24 Ecotrin PO 325 mg DAILY JOE Administration Atorvastatin Calcium 40 mg 09/25/18 22:00 09/25/18 22:16 Lipitor PO 40 mg QHS JOE Administration Budesonide 0.5 mg 09/24/18 22:45 09/26/18 11:06 Pulmicort IH 0.5 mg Q12HRT JOE Administration Bupropion HCl 100 mg 09/25/18 10:00 09/26/18 10:27 Wellbutrin Sr PO 100 mg DAILY JOE Administration Carbamazepine 200 mg 09/25/18 10:00 09/26/18 10:28 Tegretol PO 200 mg DAILY JOE Administration Carvedilol 6.25 mg 09/24/18 23:00 09/26/18 10:30 Coreg PO 6.25 mg BID JOE Administration Enoxaparin Sodium 40 mg 09/25/18 22:00 09/25/18 22:18 Lovenox SUB-Q 40 mg QDAY@2200 JOE Administration Famotidine 20 mg 09/25/18 10:00 09/26/18 10:00 Pepcid PO 20 mg DAILY JOE Administration Fluticasone Propionate 50 mcg 09/25/18 10:00 09/26/18 10:24 Flonase NS 50 mcg BID JOE Administration Hydralazine HCl 37.5 mg 09/24/18 23:00 09/26/18 05:20 Apresoline PO Not Given Q8HR JOE Ceftriaxone Sodium 2 gm in 100 mls @ 200 mls/hr 09/25/18 10:00 09/26/18 10:25 Rocephin/Ns 2 Gm/100 Ml IV 200 mls/hr Q24HR JOE Administration Protocol Azithromycin 500 mg/ Sodium 250 mls @ 250 mls/hr 09/25/18 10:00 09/25/18 10:08 Chloride IV 250 mls/hr Q24HR JOE Administration Insulin Glargine 10 units 09/25/18 22:00 09/25/18 23:12 Lantus SUB-Q 10 units QHS JOE Administration Insulin Human Lispro 0 unit 09/25/18 07:30 09/26/18 10:30 [facility]alog SUB-Q [facility] Protocol Isosorbide Dinitrate 20 mg 09/24/18 23:00 09/26/18 06:31 Isordil Titradose PO 20 mg Q8HR JOE Administration Loratadine 10 mg 09/25/18 10:00 09/26/18 10:24 Claritin PO 10 mg DAILY JOE Administration Lorazepam 0.5 mg 09/25/18 10:00 09/26/18 10:24 Ativan PO 0.5 mg DAILY JOE Administration Lorazepam 1 mg 09/25/18 22:00 09/25/18 23:13 Ativan PO 1 mg QHS JOE Administration Losartan Potassium 50 mg 09/25/18 10:00 09/26/18 10:22 Cozaar PO 50 mg QDAY JOE Administration Metformin HCl 1,000 mg 09/25/18 08:00 09/26/18 08:00 Glucophage PO 1,000 mg BIDDIAB JOE Administration Methadone HCl 5 mg 09/25/18 10:00 09/26/18 10:51 Dolophine PO 5 mg BID JOE Administration Methylprednisolone Sodium Succinate 60 mg 09/25/18 16:13 09/26/18 06:30 Solu-Medrol IV 60 mg Q8HR JOE Administration Montelukast Sodium 10 mg 09/25/18 22:00 09/25/18 23:12 Singulair PO 10 mg QHS JOE Administration Polyethylene Glycol 17 gm 09/24/18 22:38 09/26/18 10:38 Miralax 3350 PO 17 gm QDAY PRN Administration Constipation Quetiapine Fumarate 300 mg 09/24/18 23:00 09/26/18 11:53 Seroquel PO Not Given Q12HR [facility] Spironolactone 25 mg 09/25/18 10:00 09/26/18 10:23 Aldactone PO 25 mg QDAY JOE Administration Trazodone HCl 50 mg 09/25/18 22:00 09/25/18 22:17 Desyrel PO 50 mg QHS JOE Administration Zolpidem Tartrate 5 mg 09/24/18 22:38 06/08/19 22:25 Ambien PO 5 mg QHS PRN Administration Insomnia
--- NOTE | 2018-09-26 13:48 | Progress Note ---
Assessment and Plan - Patient Problems (1) Shortness of breath Current Visit: Yes Status: Acute Plan to address problem: Patient presents with shortness of breath due to COPD exacerbation, and mild fluid overload. The isolated mild elevation of troponin is likely a nonspecific finding in this clinical setting. We will continue optimal medical management of nonischemic cardiomyopathy and chronic systolic heart failure. Subjective Date of service: 09/26/18 Interval history: Patient is comfortable not in acute distress. Stable sinus rhythm and stable hemodynamics. Objective Vital Signs Temp Pulse Pulse Pulse Resp Resp BP 09/26/18 12:00 98 F 09/26/18 10:30 99 H 124/80 09/26/18 10:23 104 H 142/80 09/26/18 10:22 99 H 142/80 09/26/18 08:00 97.8 F 100 H 26 H 09/26/18 06:31 94 H 115/68 09/26/18 05:20 92 H 101/58 09/26/18 04:07 98.9 F 09/26/18 04:00 92 H 91 H 16 09/26/18 03:00 104 H 09/26/18 00:00 104 H 98 H 22 09/25/18 23:28 98 H 09/25/18 23:11 98 H 26 H 09/25/18 22:02 99.5 F 09/25/18 22:00 09/25/18 20:43 108 H 27 H 09/25/18 20:30 97.5 F L 09/25/18 20:26 109 H 28 H 09/25/18 20:00 107 H 109 H 24 09/25/18 19:28 97 H 09/25/18 18:27 09/25/18 16:10 109 H 27 H 09/25/18 16:00 109 H 111 H 30 H 34 H 09/25/18 15:00 98.2 F 09/25/18 14:44 91/65 09/25/18 14:43 91/65 BP Pulse Ox 09/26/18 12:00 09/26/18 10:30 09/26/18 10:23 09/26/18 10:22 09/26/18 08:00 10 L 09/26/18 06:31 09/26/18 05:20 09/26/18 04:07 09/26/18 04:00 101/58 95 09/26/18 03:00 09/26/18 00:00 103/55 95 09/25/18 23:28 09/25/18 23:11 93 09/25/18 22:02 09/25/18 22:00 93 09/25/18 20:43 09/25/18 20:30 09/25/18 20:26 09/25/18 20:00 94/61 93 09/25/18 19:28 09/25/18 18:27 94 09/25/18 16:10 09/25/18 16:00 94 09/25/18 15:00 09/25/18 14:44 09/25/18 14:43 - Physical Examination General: No Apparent Distress HEENT: Positive: PERRL Neck: Positive: neck supple Cardiac: Positive: Reg Rate and Rhythm Lungs: Positive: Decreased Breath Sounds Neuro: Positive: Grossly Intact Abdomen: Positive: Soft Skin: Positive: Clear Extremities: Present: +1 Edema - Labs and Meds CBC 09/26/18 Range/Units 05:23 WBC 17.3 H (4.5-11.0) K/mm3 RBC 3.98 (3.65-5.03) M/mm3 Hgb 12.1 (10.1-14.3) gm/dl Hct 38.1 (30.3-42.9) % Plt Count 129 L (140-440) K/mm3 Lymph # Quality Assurance Supervisor Body [place] # Quality Assurance Supervisor Body Eos # Quality Assurance Supervisor Body Baso # Quality Assurance Supervisor Body Comprehensive Metabolic Panel 09/25/18 09/26/18 Range/Units 15:47 05:23 Sodium 142 140 (137-145) mmol/L Potassium 4.6 D 5.1 H (3.6-5.0) mmol/L Chloride 92.2 L 90.2 L (98-107) mmol/L Carbon Dioxide 40 H D 40 H (22-30) mmol/L BUN 19 H 24 H (7-17) mg/dL Creatinine 0.9 0.9 (0.7-1.2) mg/dL Glucose 183 H 288 H (65-100) mg/dL Calcium 8.3 L 8.0 L (8.4-10.2) mg/dL
[2018-09-26] MEDS: ZITHROMAX 500 MG in NACL 0.9% 250ML 250 ML IV SCH (17:46)
[2018-09-26] MEDS: DESYREL PO SCH (22:01)
[2018-09-26] MEDS: SINGULAIR PO SCH (22:01)
[2018-09-26] MEDS: LANTUS SUB-Q SCH (22:01)
[2018-09-26] MEDS: LOVENOX SUB-Q SCH (22:02)
[2018-09-27] MEDS: APRESOLINE PO SCH ×3 (06:55→22:00)
[2018-09-27] MEDS: SOLU-Medrol IV SCH ×3 (06:55→22:09)
[2018-09-27] MEDS: ISORDIL TITRADOSE PO SCH ×3 (06:56→22:02)
[2018-09-27] MEDS: GLUCOPHAGE PO SCH ×2 (08:47→16:58)
[2018-09-27] MEDS: HumaLOG SUB-Q SCH ×4 (08:48→22:03)
[2018-09-27] MEDS: DUONEB *Not for PRN Use IH SCH ×4 (09:14→20:03)
[2018-09-27] MEDS: PULMICORT IH SCH ×2 (09:14→20:04)
--- NOTE | 2018-09-27 10:38 | Progress Note ---
Assessment and Plan ARF-MV episode r/o A/C hypercapnic respiratory failure. ABG suggestive but no PaCO2 reported on 3 ABG's sets s/p systolic heart failure exacerbation COPD, with exacerbation. Emphysema by CTA,mild atelectasis vs infiltrates. No fever r/o OHS vs COPD Bipolar disorder Former smoker Recommendations NIV at night Update ABG prior to DH Needs OPD PSG update evaluation Need OPD PFT for COPD vs OHS triage DVT prophylaxis Avoid sedatives,narcotics No clear indication to use Ativa with Ambien qhs ? Can re-start in Symbicort Discussed with the patient Subjective Date of service: 09/27/18 Principal diagnosis: systolic heart failure,COPD exac, acute respiratory failure Interval history: founfd asleep, no complains. No events overnight.NIV at the bedside Objective Vital Signs - 12hr 09/26/18 09/27/18 09/27/18 23:00 00:00 02:35 Temperature 98.9 F Pulse Rate 97 H 105 H Pulse Rate [ Anterior Bilateral Throughout] Pulse Rate [ 87 From Monitor] Pulse Rate [ 90 None] Respiratory 17 18 Rate Respiratory Rate [Anterior Bilateral Throughout] Blood Pressure 107/57 Blood Pressure 137/82 [Right] O2 Sat by Pulse 98 96 Oximetry 09/27/18 09/27/18 09/27/18 03:00 04:00 04:54 Temperature 99.1 F Pulse Rate 84 84 Pulse Rate [ Anterior Bilateral Throughout] Pulse Rate [ From Monitor] Pulse Rate [ None] Respiratory 13 Rate Respiratory Rate [Anterior Bilateral Throughout] Blood Pressure Blood Pressure 122/67 [Right] O2 Sat by Pulse 95 Oximetry 09/27/18 09/27/18 09/27/18 04:55 07:00 08:00 Temperature 98.5 F Pulse Rate 102 H Pulse Rate [ Anterior Bilateral Throughout] Pulse Rate [ 84 From Monitor] Pulse Rate [ None] Respiratory 12 Rate Respiratory Rate [Anterior Bilateral Throughout] Blood Pressure Blood Pressure [Right] O2 Sat by Pulse 95 Oximetry 09/27/18 09/27/18 09/27/18 09:14 09:17 09:22 Temperature Pulse Rate Pulse Rate [ 103 H 106 H Anterior Bilateral Throughout] Pulse Rate [ From Monitor] Pulse Rate [ None] Respiratory Rate Respiratory 20 20 Rate [Anterior Bilateral Throughout] Blood Pressure Blood Pressure [Right] O2 Sat by Pulse 94 Oximetry Constitutional: no acute distress, alert, other (morbidly obese) Eyes: non-icteric ENT: oropharynx moist Neck: supple, other (large in circumference) Effort: normal Ascultation: Bilateral: diminished breath sounds Percussion: Bilateral: not dull Tactile fremitus: Bilateral: normal Cardiovascular: regular rate and rhythm Gastrointestinal: normoactive bowel sounds, absent bowel sounds, soft Extremities: no cyanosis, edema Neurologic: normal mental status, non-focal exam, pupils equal and round, CN II- XII normal CBC and BMP: 09/26/18 05:23 09/26/18 05:23 ABG, PT/INR, D-dimer: ABG POC ABG pH 7.375 (7.35-7.45) 09/24/18 17:11 POC ABG pO2 61 (80-105) L 09/24/18 17:11 POC ABG HCO3 44.4 (22-26 mml/L) 09/24/18 17:11 POC ABG Total CO2 47 (23-27mmol/L) 09/24/18 17:11 POC ABG O2 Sat 89 09/24/18 17:11 PT/INR, D-dimer PT 13.5 Sec. (12.2-14.9) 09/24/18 11:28 INR 0.97 (0.87-1.13) 09/24/18 11:28 Abnormal lab findings: Abnormal Labs 09/24/18 09/24/18 09/24/18 11:28 11:28 12:46 WBC RDW 17.0 H Plt Count Seg Neuts % (Manual) 77.0 H Lymphocytes % (Manual) Seg Neutrophils # Man POC ABG pH 7.256 L POC ABG pO2 161 H Potassium 5.9 H Chloride 92.3 L Carbon Dioxide 31 H BUN Glucose 280 H POC Glucose Calcium Troponin T 0.069 H NT-Pro-B Natriuret Pep 2191 H Albumin 3.5 L HDL Cholesterol 93 H 09/24/18 09/24/18 09/24/18 14:15 14:46 16:55 WBC RDW Plt Count Seg Neuts % (Manual) Lymphocytes % (Manual) Seg Neutrophils # Man POC ABG pH 7.336 L POC ABG pO2 68 L Potassium Chloride Carbon Dioxide BUN Glucose POC Glucose Calcium Troponin T 0.067 H 0.110 H* D NT-Pro-B Natriuret Pep Albumin HDL Cholesterol 09/24/18 09/24/18 09/25/18 17:11 23:51 07:27 WBC RDW Plt Count Seg Neuts % (Manual) Lymphocytes % (Manual) Seg Neutrophils # Man POC ABG pH POC ABG pO2 61 L Potassium Chloride Carbon Dioxide BUN Glucose POC Glucose 160 H 231 H Calcium Troponin T NT-Pro-B Natriuret Pep Albumin HDL Cholesterol 09/25/18 09/25/18 09/25/18 11:48 15:47 16:24 WBC RDW Plt Count Seg Neuts % (Manual) Lymphocytes % (Manual) Seg Neutrophils # Man POC ABG pH POC ABG pO2 Potassium Chloride 92.2 L Carbon Dioxide 40 H D BUN 19 H Glucose 183 H POC Glucose 307 H 272 H Calcium 8.3 L Troponin T NT-Pro-B Natriuret Pep Albumin HDL Cholesterol 09/25/18 09/26/18 09/26/18 20:13 05:23 05:23 WBC 17.3 H RDW 16.5 H Plt Count 129 L Seg Neuts % (Manual) 87.0 H Lymphocytes % (Manual) 8.0 L Seg Neutrophils # Man 15.1 H POC ABG pH POC ABG pO2 Potassium 5.1 H Chloride 90.2 L Carbon Dioxide 40 H BUN 24 H Glucose 288 H POC Glucose 144 H Calcium 8.0 L Troponin T NT-Pro-B Natriuret Pep Albumin HDL Cholesterol 09/26/18 09/26/18 09/26/18 08:47 12:21 16:35 WBC RDW Plt Count Seg Neuts % (Manual) Lymphocytes % (Manual) Seg Neutrophils # Man POC ABG pH POC ABG pO2 Potassium Chloride Carbon Dioxide BUN Glucose POC Glucose 326 H 304 H 266 H Calcium Troponin T NT-Pro-B Natriuret Pep Albumin HDL Cholesterol 09/26/18 09/27/18 21:29 08:25 WBC RDW Plt Count Seg Neuts % (Manual) Lymphocytes % (Manual) Seg Neutrophils # Man POC ABG pH POC ABG pO2 Potassium Chloride Carbon Dioxide BUN Glucose POC Glucose 350 H 284 H Calcium Troponin T NT-Pro-B Natriuret Pep Albumin HDL Cholesterol Chest x-ray: report reviewed, image reviewed
[2018-09-27] MEDS: CLARITIN PO SCH (11:17)
[2018-09-27] MEDS: ATIVAN PO SCH (11:17)
[2018-09-27] MEDS: ALDACTONE PO SCH (11:17)
[2018-09-27] MEDS: COREG PO SCH ×2 (11:18→22:02)
[2018-09-27] MEDS: COZAAR PO SCH (11:18)
[2018-09-27] MEDS: DOLOPHINE PO SCH ×2 (11:18→22:06)
[2018-09-27] MEDS: ECOTRIN PO SCH (11:18)
[2018-09-27] MEDS: ROCEPHIN/NS 2 GM/100 ML 2 GM/100 ML BAG IV SCH (11:19)
[2018-09-27] MEDS: FLONASE NS SCH ×2 (11:19→21:58)
[2018-09-27] MEDS: PEPCID PO SCH (11:19)
[2018-09-27] MEDS: ZITHROMAX 500 MG in NACL 0.9% 250ML 250 ML IV SCH (11:20)
[2018-09-27] MEDS: WELLBUTRIN SR PO SCH (11:20)
[2018-09-27] MEDS: MIRALAX 3350 PO PRN (12:42)
--- NOTE | 2018-09-27 13:23 | Progress Note ---
Assessment and Plan Chronic systolic heart failure COPD exacerbation oxygen as an outpatient Dilated Nonischemic Cardiomyopathy LHC at [facility] in 2013: no significant CAD, EF 45% EF 40-45% by echo 04/2018 Chronic elevated troponin, nonspecific Diabetes Hypertension Recommend: Fluid/sodium restriction. Medical management for heart failure to include diuretics, after-load agents and beta blockers. Conservative cardiac management. Subjective Date of service: 09/27/18 Principal diagnosis: systolic heart failure,COPD exac, acute respiratory failure Interval history: Patient is resting in bed comfortably. Still with active wheezing. Objective Vital Signs Temp Pulse Pulse Pulse Pulse Resp Resp 09/27/18 12:27 111 H 20 09/27/18 12:17 104 H 20 09/27/18 11:18 104 H 09/27/18 11:17 104 H 09/27/18 09:22 106 H 20 09/27/18 09:17 09/27/18 09:14 103 H 20 09/27/18 08:00 98.5 F 09/27/18 07:00 102 H 09/27/18 04:55 84 12 09/27/18 04:54 84 13 09/27/18 04:00 99.1 F 09/27/18 03:00 84 09/27/18 02:35 105 H 18 09/27/18 00:00 98.9 F 87 90 17 09/26/18 23:00 97 H 09/26/18 22:02 97 H 09/26/18 22:00 97 H 09/26/18 20:40 105 H 24 09/26/18 20:29 09/26/18 20:25 102 H 24 09/26/18 20:00 98.9 F 97 H 89 17 09/26/18 19:35 97.8 F 09/26/18 19:00 92 H 09/26/18 17:13 98 H 20 09/26/18 17:02 93 H 22 09/26/18 16:20 98.6 F 09/26/18 16:00 98.6 F 92 H 101 H 26 H 09/26/18 14:57 92 H 09/26/18 14:00 96 H BP BP Pulse Ox 09/27/18 12:27 09/27/18 12:17 09/27/18 11:18 151/73 09/27/18 11:17 151/73 09/27/18 09:22 09/27/18 09:17 94 09/27/18 09:14 09/27/18 08:00 09/27/18 07:00 09/27/18 04:55 95 09/27/18 04:54 122/67 95 09/27/18 04:00 09/27/18 03:00 09/27/18 02:35 137/82 96 09/27/18 00:00 107/57 98 09/26/18 23:00 09/26/18 22:02 112/80 09/26/18 22:00 112/80 09/26/18 20:40 09/26/18 20:29 95 09/26/18 20:25 09/26/18 20:00 115/64 98 09/26/18 19:35 09/26/18 19:00 09/26/18 17:13 09/26/18 17:02 09/26/18 16:20 09/26/18 16:00 97 09/26/18 14:57 144/85 09/26/18 14:00 140/82 - Physical Examination General: No Apparent Distress HEENT: Positive: PERRL Neck: Positive: trachea midline Cardiac: Positive: Tachycardia Lungs: Positive: Decreased Breath Sounds, Wheezes Neuro: Positive: Grossly Intact Abdomen: Positive: Soft Extremities: Present: +1 Edema
--- NOTE | 2018-09-27 14:35 | Progress Note ---
Assessment and Plan Assessment and plan: 48-year-old -[place] female with medical history significant for morbid obesity, chronic systolic CHF, COPD, diabetes, sleep apnea presented to the emergency department from [facility] with complaints of shortness of breath. Patient was placed on BiPAP and admitted to MICU. Patient was intubated previously. Patient's also complaining of cough which is productive with white sputum but denied fever, chills. Acute respiratory failure with Hypercarbia and hypoxia still on ventimask during day and NIV at night COPD exacerbation - Patient is on IV Solu-Medrol, antibiotic, DuoNeb's and nebulizer treatment Acute exacerbation of Chronic systolic heart failure, elevated troponin - Cardiology consulted - Recommend medical management, cont lasix Diabetes mellitus - Sliding-scale insulin, ADA diet, Accu-Chek and adjust insulin as needed HLD - Continue statin DVT prophylaxis - On Lovenox Disposition; continue IMCU care History Interval history: The patient continued to desaturate when eating, wheezing and shortness of breath reported by patient She denies chest pain She admits to cough productive of thick yellow sputum Denies fevers, denies vomiting Hospitalist Physical - Physical exam Narrative exam: General.: Mild to moderate distress due to shortness of breath HEENT: Moist mucous membranes, extraocular muscles intact, no lymphadenopathy Neck: supple Cardiac: S1-S2 heard Lungs: Bilateral wheezing, decreased air entry Abdomen: soft , nontender, nondistended, bowel sounds positive Extremities: no edema clubbing or cyanosis Skin: no rash or lesions Neurologic: no gross focal deficits, lacks insight, poor cognition; apparently patient had brain surgery in the past and has not been the same since Psych: calm, and cooperative - Constitutional Vitals: Temp Pulse Resp BP Pulse Ox 98.2 F 111 H 20 151/73 96 09/27/18 12:00 09/27/18 12:27 09/27/18 12:27 09/27/18 11:18 09/27/18 12:00 General appearance: Present: mild distress Results - Labs CBC & Chem 7: 09/26/18 05:23 09/26/18 05:23 Labs: Laboratory Last Values WBC 17.3 K/mm3 (4.5-11.0) H 09/26/18 05:23 RBC 3.98 M/mm3 (3.65-5.03) 09/26/18 05:23 Hgb 12.1 gm/dl (10.1-14.3) 09/26/18 05:23 Hct 38.1 % (30.3-42.9) 09/26/18 05:23 MCV 96 fl (79-97) 09/26/18 05:23 MCH 30 pg (28-32) 09/26/18 05:23 MCHC 32 % (30-34) 09/26/18 05:23 RDW 16.5 % (13.2-15.2) H 09/26/18 05:23 Plt Count 129 K/mm3 (140-440) L 09/26/18 05:23 Lymph % (Auto) Surgical Instrument Maker 09/26/18 05:23 [place] % (Auto) Surgical Instrument Maker 09/26/18 05:23 Eos % (Auto) Surgical Instrument Maker 09/26/18 05:23 Baso % (Auto) Surgical Instrument Maker 09/26/18 05:23 Lymph # Surgical Instrument Maker 09/26/18 05:23 [place] # Surgical Instrument Maker 09/26/18 05:23 Eos # Surgical Instrument Maker 09/26/18 05:23 Baso # Surgical Instrument Maker 09/26/18 05:23 Add Manual Diff Complete 09/26/18 05:23 Total Counted 100 09/26/18 05:23 Seg Neutrophils % Surgical Instrument Maker 09/26/18 05:23 Seg Neuts % (Manual) 87.0 % (40.0-70.0) H 09/26/18 05:23 1.0 % 09/26/18 05:23 8.0 % (13.4-35.0) L 09/26/18 05:23 Reactive Lymphs % (Man) 0 % 09/26/18 05:23 4.0 % (0.0-7.3) 09/26/18 05:23 0 % (0.0-4.3) 09/26/18 05:23 0 % (0.0-1.8) 09/26/18 05:23 0 % 09/26/18 05:23 0 % 09/26/18 05:23 0 % 09/26/18 05:23 0 % 09/26/18 05:23 Nucleated RBC % Not Reportable 09/26/18 05:23 Seg Neutrophils # Surgical Instrument Maker 09/26/18 05:23 Seg Neutrophils # Man 15.1 K/mm3 (1.8-7.7) H 09/26/18 05:23 Band Neutrophils # 0.2 K/mm3 09/26/18 05:23 1.4 K/mm3 (1.2-5.4) 09/26/18 05:23 Abs React Lymphs (Man) 0.0 K/mm3 09/26/18 05:23 0.7 K/mm3 (0.0-0.8) 09/26/18 05:23 0.0 K/mm3 (0.0-0.4) 09/26/18 05:23 0.0 K/mm3 (0.0-0.1) 09/26/18 05:23 0.0 K/mm3 09/26/18 05:23 0.0 K/mm3 09/26/18 05:23 0.0 K/mm3 09/26/18 05:23 Blast Cells # 0.0 K/mm3 09/26/18 05:23 WBC Morphology Not Reportable 09/26/18 05:23 Hypersegmented Neuts Not Reportable 09/26/18 05:23 Hyposegmented Neuts Not Reportable 09/26/18 05:23 Hypogranular Neuts Not Reportable 09/26/18 05:23 Not Reportable 09/26/18 05:23 Not Reportable 09/26/18 05:23 Not Reportable 09/26/18 05:23 Not Reportable 09/26/18 05:23 Not Reportable 09/26/18 05:23 Not Reportable 09/26/18 05:23 Consistent w auto 09/26/18 05:23 Not Reportable 09/26/18 05:23 Plt Clumps, EDTA Not Reportable 09/26/18 05:23 Not Reportable 09/26/18 05:23 Not Reportable 09/26/18 05:23 Not Reportable 09/26/18 05:23 Plt Morphology Comment Not Reportable 09/26/18 05:23 RBC Morphology Not Reportable 09/26/18 05:23 Dimorphic RBCs Not Reportable 09/26/18 05:23 Not Reportable 09/26/18 05:23 Not Reportable 09/26/18 05:23 1+ 09/26/18 05:23 1+ 09/26/18 05:23 Not Reportable 09/26/18 05:23 Not Reportable 09/26/18 05:23 Not Reportable 09/26/18 05:23 Not Reportable 09/26/18 05:23 Not Reportable 09/26/18 05:23 Not Reportable 09/26/18 05:23 Not Reportable 09/26/18 05:23 Not Reportable 09/26/18 05:23 Not Reportable 09/26/18 05:23 Not Reportable 09/26/18 05:23 Not Reportable 09/26/18 05:23 Not Reportable 09/26/18 05:23 Not Reportable 09/26/18 05:23 Not Reportable 09/26/18 05:23 Not Reportable 09/26/18 05:23 Acanthocytes (Spur) Not Reportable 09/26/18 05:23 Rouleaux Not Reportable 09/26/18 05:23 Not Reportable 09/26/18 05:23 Not Reportable 09/26/18 05:23 Not Reportable 09/26/18 05:23 Not Reportable 09/26/18 05:23 Hem Pathologist Commnt No 09/26/18 05:23 PT 13.5 Sec. (12.2-14.9) 09/24/18 11:28 INR 0.97 (0.87-1.13) 09/24/18 11:28 APTT 25.8 Sec. (24.2-36.6) 09/24/18 11:28 POC ABG pH 7.375 (7.35-7.45) 09/24/18 17:11 POC ABG pO2 61 (80-105) L 09/24/18 17:11 POC ABG HCO3 44.4 (22-26 mml/L) 09/24/18 17:11 POC ABG Total CO2 47 (23-27mmol/L) 09/24/18 17:11 POC ABG O2 Sat 89 09/24/18 17:11 POC ABG Base Excess 19 ((-2) - (+3)mmol/L) 09/24/18 17:11 50 % 09/24/18 17:11 Sodium 140 mmol/L (137-145) 09/26/18 05:23 Potassium 5.1 mmol/L (3.6-5.0) H 09/26/18 05:23 Chloride 90.2 mmol/L (98-107) L 09/26/18 05:23 Carbon Dioxide 40 mmol/L (22-30) H 09/26/18 05:23 15 mmol/L 09/26/18 05:23 BUN 24 mg/dL (7-17) H 09/26/18 05:23 0.9 mg/dL (0.7-1.2) 09/26/18 05:23 Estimated GFR > 60 ml/min 09/26/18 05:23 27 % 09/26/18 05:23 Glucose 288 mg/dL (65-100) H 09/26/18 05:23 POC Glucose 317 (70-105) H 09/27/18 11:42 Calcium 8.0 mg/dL (8.4-10.2) L 09/26/18 05:23 0.20 mg/dL (0.1-1.2) 09/24/18 11:28 AST 28 units/L (5-40) 09/24/18 11:28 ALT 21 units/L (7-56) 09/24/18 11:28 64 units/L (35-129) 09/24/18 11:28 0.110 ng/mL (0.00-0.029) H* D 09/24/18 16:55 NT-Pro-B Natriuret Pep 2191 pg/mL (0-450) H 09/24/18 11:28 6.6 g/dL (6.3-8.2) 09/24/18 11:28 3.5 g/dL (3.9-5) L 09/24/18 11:28 1.1 % 09/24/18 11:28 Triglycerides 87 mg/dL (2-149) 09/24/18 11:28 Cholesterol 186 mg/dL (50-199) 09/24/18 11:28 73 mg/dL (50-130) 09/24/18 11:28 93 mg/dL (40-59) H 09/24/18 11:28 2.00 % 09/24/18 11:28 Active Medications - Current Medications Current Medications: Generic Name Dose Route Start Last Admin Trade Name Freq PRN Reason Stop Dose Admin Acetaminophen 650 mg 09/24/18 22:38 09/25/18 22:25 Tylenol PO 650 mg Q12H PRN Administration Non Cardiac Pain or Temp>100.5 Albuterol 2.5 mg 09/24/18 22:29 Proventil IH Q4HRT PRN Shortness Of Breath Albuterol/Ipratropium 1 ampul 09/25/18 08:00 09/27/18 12:17 Duoneb *Not For Prn Use* IH 1 ampul QIDRT JOE Administration Aspirin 325 mg 09/25/18 10:00 09/27/18 11:18 Ecotrin PO 325 mg DAILY JOE Administration Atorvastatin Calcium 40 mg 09/25/18 22:00 09/26/18 22:02 Lipitor PO 40 mg QHS JOE Administration Budesonide 0.5 mg 09/24/18 22:45 09/27/18 09:14 Pulmicort IH 0.5 mg Q12HRT JOE Administration Bupropion HCl 100 mg 09/25/18 10:00 09/27/18 11:20 Wellbutrin Sr PO 100 mg DAILY JOE Administration Carbamazepine 200 mg 09/25/18 10:00 09/27/18 11:20 Tegretol PO 200 mg DAILY JOE Administration Carvedilol 6.25 mg 09/24/18 23:00 09/27/18 11:18 Coreg PO 6.25 mg BID JOE Administration Enoxaparin Sodium 40 mg 09/25/18 22:00 09/26/18 22:02 Lovenox SUB-Q 40 mg QDAY@2200 JOE Administration Famotidine 20 mg 09/25/18 10:00 09/27/18 11:19 Pepcid PO 20 mg DAILY JOE Administration Fluticasone Propionate 50 mcg 09/25/18 10:00 09/27/18 11:19 Flonase NS 50 mcg BID JOE Administration Hydralazine HCl 37.5 mg 09/24/18 23:00 09/27/18 06:55 Apresoline PO 37.5 mg Q8HR JOE Administration Ceftriaxone Sodium 2 gm in 100 mls @ 200 mls/hr 09/25/18 10:00 09/27/18 11:19 Rocephin/Ns 2 Gm/100 Ml IV 200 mls/hr Q24HR JOE Administration Protocol Azithromycin 500 mg/ Sodium 250 mls @ 250 mls/hr 09/25/18 10:00 09/27/18 11:20 Chloride IV 250 mls/hr Q24HR JOE Administration Insulin Glargine 15 units 09/27/18 22:00 Lantus SUB-Q QHS JOE Insulin Human Lispro 0 unit 09/25/18 07:30 09/27/18 12:41 Humalog SUB-Q 8 unit ACHS JOE Administration Protocol Isosorbide Dinitrate 20 mg 09/24/18 23:00 09/27/18 06:56 Isordil Titradose PO 20 mg Q8HR JOE Administration Loratadine 10 mg 09/25/18 10:00 09/27/18 11:17 Claritin PO 10 mg DAILY JOE Administration Lorazepam 0.5 mg 09/25/18 10:00 09/27/18 11:17 Ativan PO 0.5 mg DAILY JOE Administration Losartan Potassium 50 mg 09/25/18 10:00 09/27/18 11:18 Cozaar PO 50 mg QDAY JOE Administration Metformin HCl 1,000 mg 09/25/18 08:00 09/27/18 08:47 Glucophage PO 1,000 mg BIDDIAB JOE Administration Methadone HCl 5 mg 09/25/18 10:00 09/27/18 11:18 Dolophine PO 5 mg BID JOE Administration Methylprednisolone Sodium Succinate 60 mg 09/25/18 16:13 09/27/18 06:55 Solu-Medrol IV 60 mg Q8HR JOE Administration Montelukast Sodium 10 mg 09/25/18 22:00 09/26/18 22:01 Singulair PO 10 mg QHS JOE Administration Polyethylene Glycol 17 gm 09/24/18 22:38 09/27/18 12:42 Miralax 3350 PO 17 gm QDAY PRN Administration Constipation Quetiapine Fumarate 300 mg 09/24/18 23:00 09/27/18 11:19 Seroquel PO 300 mg Q12HR JOE Administration Spironolactone 25 mg 09/25/18 10:00 09/27/18 11:17 Aldactone PO 25 mg QDAY JOE Administration Trazodone HCl 50 mg 09/25/18 22:00 09/26/18 22:01 Desyrel PO 50 mg QHS JOE Administration Zolpidem Tartrate 5 mg 09/24/18 22:38 09/25/18 22:25 Ambien PO 5 mg QHS PRN Administration Insomnia
[2018-09-27] MEDS: LANTUS SUB-Q SCH (21:58)
[2018-09-27] MEDS: LOVENOX SUB-Q SCH (21:59)
[2018-09-27] MEDS: SINGULAIR PO SCH (22:00)
[2018-09-27] MEDS: DESYREL PO SCH (22:06)
[2018-09-28] MEDS: AMBIEN PO PRN (03:30)
[2018-09-28] MEDS: APRESOLINE PO SCH ×3 (05:19→22:00)
[2018-09-28] MEDS: ISORDIL TITRADOSE PO SCH ×3 (05:19→22:00)
[2018-09-28] MEDS: SOLU-Medrol IV SCH ×3 (05:20→22:00)
[2018-09-28] MEDS: PULMICORT IH SCH ×2 (07:22→20:17)
[2018-09-28] MEDS: DUONEB *Not for PRN Use IH SCH ×4 (07:22→20:17)
--- NOTE | 2018-09-28 09:47 | Progress Note ---
Assessment and Plan ARF-MV episode r/o A/C hypercapnic respiratory failure. ABG suggestive but no PaCO2 reported on 3 ABG's sets s/p systolic heart failure exacerbation COPD, with exacerbation. Emphysema by CTA,mild atelectasis vs infiltrates. No fever r/o OHS vs COPD Bipolar disorder Former smoker Recommendations NIV at night Continue nebulizer therapy Update ABG prior to DH Add Mucinex per patient request Need OPD PFT for COPD vs OHS triage DVT prophylaxis Avoid sedatives,narcotics Can re-start in Symbicort Discussed with the patient Subjective Date of service: 09/28/18 Principal diagnosis: systolic heart failure,COPD exac, acute respiratory failure Interval history: States her breathing is better today. No events overnight. Complains that she is missing her Mucinex Objective Vital Signs - 12hr 09/27/18 09/27/18 09/27/18 21:53 22:00 22:02 Temperature 98.7 F Pulse Rate 95 H 96 H Pulse Rate [ Anterior Bilateral Throughout] Pulse Rate [ From Monitor] Respiratory Rate Respiratory Rate [Anterior Bilateral Throughout] Blood Pressure 129/71 129/71 O2 Sat by Pulse Oximetry 09/27/18 09/28/18 09/28/18 22:23 00:00 01:00 Temperature 97.0 F L Pulse Rate 93 H Pulse Rate [ Anterior Bilateral Throughout] Pulse Rate [ 94 H From Monitor] Respiratory 26 H 18 Rate Respiratory Rate [Anterior Bilateral Throughout] Blood Pressure 129/76 O2 Sat by Pulse 95 91 Oximetry 09/28/18 09/28/18 09/28/18 04:00 05:19 07:00 Temperature Pulse Rate 88 86 106 H Pulse Rate [ Anterior Bilateral Throughout] Pulse Rate [ 94 H From Monitor] Respiratory 26 H Rate Respiratory Rate [Anterior Bilateral Throughout] Blood Pressure 153/89 O2 Sat by Pulse 96 Oximetry 09/28/18 09/28/18 09/28/18 07:24 07:30 07:38 Temperature 97.6 F Pulse Rate Pulse Rate [ 89 83 Anterior Bilateral Throughout] Pulse Rate [ From Monitor] Respiratory Rate Respiratory 14 18 Rate [Anterior Bilateral Throughout] Blood Pressure O2 Sat by Pulse 92 Oximetry 09/28/18 08:00 Temperature Pulse Rate Pulse Rate [ Anterior Bilateral Throughout] Pulse Rate [ 94 H From Monitor] Respiratory 13 Rate Respiratory Rate [Anterior Bilateral Throughout] Blood Pressure O2 Sat by Pulse 95 Oximetry Constitutional: no acute distress, alert, other (morbidly obese) Eyes: non-icteric ENT: oropharynx moist Neck: supple, other (large in circumference) Effort: normal Ascultation: Bilateral: diminished breath sounds, wheezes (mild) Percussion: Bilateral: not dull Tactile fremitus: Bilateral: normal Cardiovascular: regular rate and rhythm Gastrointestinal: normoactive bowel sounds, absent bowel sounds, soft Extremities: no cyanosis, edema Neurologic: normal mental status, non-focal exam, pupils equal and round, CN II- XII normal CBC and BMP: 09/26/18 05:23 09/26/18 05:23 ABG, PT/INR, D-dimer: ABG POC ABG pH 7.375 (7.35-7.45) 09/24/18 17:11 POC ABG pO2 61 (80-105) L 09/24/18 17:11 POC ABG HCO3 44.4 (22-26 mml/L) 09/24/18 17:11 POC ABG Total CO2 47 (23-27mmol/L) 09/24/18 17:11 POC ABG O2 Sat 89 09/24/18 17:11 PT/INR, D-dimer PT 13.5 Sec. (12.2-14.9) 09/24/18 11:28 INR 0.97 (0.87-1.13) 09/24/18 11:28 Abnormal lab findings: Abnormal Labs 09/24/18 09/24/18 09/24/18 11:28 11:28 12:46 WBC RDW 17.0 H Plt Count Seg Neuts % (Manual) 77.0 H Lymphocytes % (Manual) Seg Neutrophils # Man POC ABG pH 7.256 L POC ABG pO2 161 H Potassium 5.9 H Chloride 92.3 L Carbon Dioxide 31 H BUN Glucose 280 H POC Glucose Calcium Troponin T 0.069 H NT-Pro-B Natriuret Pep 2191 H Albumin 3.5 L HDL Cholesterol 93 H 09/24/18 09/24/18 09/24/18 14:15 14:46 16:55 WBC RDW Plt Count Seg Neuts % (Manual) Lymphocytes % (Manual) Seg Neutrophils # Man POC ABG pH 7.336 L POC ABG pO2 68 L Potassium Chloride Carbon Dioxide BUN Glucose POC Glucose Calcium Troponin T 0.067 H 0.110 H* D NT-Pro-B Natriuret Pep Albumin HDL Cholesterol 09/24/18 09/24/18 09/25/18 17:11 23:51 07:27 WBC RDW Plt Count Seg Neuts % (Manual) Lymphocytes % (Manual) Seg Neutrophils # Man POC ABG pH POC ABG pO2 61 L Potassium Chloride Carbon Dioxide BUN Glucose POC Glucose 160 H 231 H Calcium Troponin T NT-Pro-B Natriuret Pep Albumin HDL Cholesterol 09/25/18 09/25/18 09/25/18 11:48 15:47 16:24 WBC RDW Plt Count Seg Neuts % (Manual) Lymphocytes % (Manual) Seg Neutrophils # Man POC ABG pH POC ABG pO2 Potassium Chloride 92.2 L Carbon Dioxide 40 H D BUN 19 H Glucose 183 H POC Glucose 307 H 272 H Calcium 8.3 L Troponin T NT-Pro-B Natriuret Pep Albumin HDL Cholesterol 09/25/18 09/26/18 09/26/18 20:13 05:23 05:23 WBC 17.3 H RDW 16.5 H Plt Count 129 L Seg Neuts % (Manual) 87.0 H Lymphocytes % (Manual) 8.0 L Seg Neutrophils # Man 15.1 H POC ABG pH POC ABG pO2 Potassium 5.1 H Chloride 90.2 L Carbon Dioxide 40 H BUN 24 H Glucose 288 H POC Glucose 144 H Calcium 8.0 L Troponin T NT-Pro-B Natriuret Pep Albumin HDL Cholesterol 09/26/18 09/26/18 09/26/18 08:47 12:21 16:35 WBC RDW Plt Count Seg Neuts % (Manual) Lymphocytes % (Manual) Seg Neutrophils # Man POC ABG pH POC ABG pO2 Potassium Chloride Carbon Dioxide BUN Glucose POC Glucose 326 H 304 H 266 H Calcium Troponin T NT-Pro-B Natriuret Pep Albumin HDL Cholesterol 09/26/18 09/27/18 09/27/18 21:29 08:25 11:42 WBC RDW Plt Count Seg Neuts % (Manual) Lymphocytes % (Manual) Seg Neutrophils # Man POC ABG pH POC ABG pO2 Potassium Chloride Carbon Dioxide BUN Glucose POC Glucose 350 H 284 H 317 H Calcium Troponin T NT-Pro-B Natriuret Pep Albumin HDL Cholesterol 09/27/18 09/27/18 09/28/18 16:05 21:21 07:18 WBC RDW Plt Count Seg Neuts % (Manual) Lymphocytes % (Manual) Seg Neutrophils # Man POC ABG pH POC ABG pO2 Potassium Chloride Carbon Dioxide BUN Glucose POC Glucose 338 H 390 H 313 H Calcium Troponin T NT-Pro-B Natriuret Pep Albumin HDL Cholesterol
[2018-09-28] MEDS: COZAAR PO SCH (10:06)
[2018-09-28] MEDS: ALDACTONE PO SCH (10:06)
[2018-09-28] MEDS: PEPCID PO SCH (10:06)
[2018-09-28] MEDS: GLUCOPHAGE PO SCH ×2 (10:07→18:05)
[2018-09-28] MEDS: WELLBUTRIN SR PO SCH (10:07)
[2018-09-28] MEDS: DOLOPHINE PO SCH ×2 (10:07→21:10)
[2018-09-28] MEDS: COREG PO SCH ×2 (10:07→21:00)
[2018-09-28] MEDS: CLARITIN PO SCH (10:07)
[2018-09-28] MEDS: ZITHROMAX 500 MG in NACL 0.9% 250ML 250 ML IV SCH (10:08)
[2018-09-28] MEDS: HumaLOG SUB-Q SCH ×4 (10:08→22:00)
[2018-09-28] MEDS: ROCEPHIN/NS 2 GM/100 ML 2 GM/100 ML BAG IV SCH (10:08)
[2018-09-28] MEDS: ATIVAN PO SCH (10:08)
[2018-09-28] MEDS: ECOTRIN PO SCH (10:09)
[2018-09-28] MEDS: MIRALAX 3350 PO PRN (10:37)
[2018-09-28] MEDS: FLONASE NS SCH ×2 (10:46→22:45)
[2018-09-28] MEDS: TYLENOL PO PRN (12:08)
--- NOTE | 2018-09-28 12:12 | Progress Note ---
Assessment and Plan Assessment and plan: 48-year-old -[place] female with medical history significant for morbid obesity, chronic systolic CHF, COPD, diabetes, sleep apnea presented to the emergency department from [facility] with complaints of shortness of breath. Patient was placed on BiPAP and admitted to MICU. Patient was intubated previously. Patient's also complaining of cough which is productive with white sputum but denied fever, chills. Acute respiratory failure with Hypercarbia and hypoxia still on ventimask during day and NIV at night COPD exacerbation - Patient is on IV Solu-Medrol, antibiotic, DuoNeb's and nebulizer treatment Acute exacerbation of Chronic systolic heart failure, elevated troponin - Cardiology consulted - Recommend medical management, cont lasix Diabetes mellitus - Sliding-scale insulin, ADA diet, Accu-Chek and adjust insulin as needed HLD - Continue statin DVT prophylaxis - On Lovenox Disposition; continue IMCU care History Interval history: The patient continued to desaturate when eating, wheezing and shortness of breath reported by patient She denies chest pain She admits to cough productive of thick yellow sputum Denies fevers, denies vomiting Hospitalist Physical - Physical exam Narrative exam: General.: Mild to moderate distress due to shortness of breath HEENT: Moist mucous membranes, extraocular muscles intact, no lymphadenopathy Neck: supple Cardiac: S1-S2 heard Lungs: Bilateral wheezing, decreased air entry Abdomen: soft , nontender, nondistended, bowel sounds positive Extremities: no edema clubbing or cyanosis Skin: no rash or lesions Neurologic: no gross focal deficits, lacks insight, poor cognition; apparently patient had brain surgery in the past and has not been the same since Psych: calm, and cooperative - Constitutional Vitals: Temp Pulse Resp BP Pulse Ox 98.2 F 94 H 13 153/89 95 09/28/18 11:00 09/28/18 08:00 09/28/18 08:00 09/28/18 05:19 09/28/18 08:00 General appearance: Present: mild distress Results - Labs CBC & Chem 7: 09/26/18 05:23 09/26/18 05:23 Labs: Laboratory Last Values WBC 17.3 K/mm3 (4.5-11.0) H 09/26/18 05:23 RBC 3.98 M/mm3 (3.65-5.03) 09/26/18 05:23 Hgb 12.1 gm/dl (10.1-14.3) 09/26/18 05:23 Hct 38.1 % (30.3-42.9) 09/26/18 05:23 MCV 96 fl (79-97) 09/26/18 05:23 MCH 30 pg (28-32) 09/26/18 05:23 MCHC 32 % (30-34) 09/26/18 05:23 RDW 16.5 % (13.2-15.2) H 09/26/18 05:23 Plt Count 129 K/mm3 (140-440) L 09/26/18 05:23 Lymph % (Auto) Veneer Grader 09/26/18 05:23 [place] % (Auto) Veneer Grader 09/26/18 05:23 Eos % (Auto) Veneer Grader 09/26/18 05:23 Baso % (Auto) Veneer Grader 09/26/18 05:23 Lymph # Veneer Grader 09/26/18 05:23 [place] # Veneer Grader 09/26/18 05:23 Eos # Veneer Grader 09/26/18 05:23 Baso # Veneer Grader 09/26/18 05:23 Add Manual Diff Complete 09/26/18 05:23 Total Counted 100 09/26/18 05:23 Seg Neutrophils % Veneer Grader 09/26/18 05:23 Seg Neuts % (Manual) 87.0 % (40.0-70.0) H 09/26/18 05:23 1.0 % 09/26/18 05:23 8.0 % (13.4-35.0) L 09/26/18 05:23 Reactive Lymphs % (Man) 0 % 09/26/18 05:23 4.0 % (0.0-7.3) 09/26/18 05:23 0 % (0.0-4.3) 09/26/18 05:23 0 % (0.0-1.8) 09/26/18 05:23 0 % 09/26/18 05:23 0 % 09/26/18 05:23 0 % 09/26/18 05:23 0 % 09/26/18 05:23 Nucleated RBC % Not Reportable 09/26/18 05:23 Seg Neutrophils # Veneer Grader 09/26/18 05:23 Seg Neutrophils # Man 15.1 K/mm3 (1.8-7.7) H 09/26/18 05:23 Band Neutrophils # 0.2 K/mm3 09/26/18 05:23 1.4 K/mm3 (1.2-5.4) 09/26/18 05:23 Abs React Lymphs (Man) 0.0 K/mm3 09/26/18 05:23 0.7 K/mm3 (0.0-0.8) 09/26/18 05:23 0.0 K/mm3 (0.0-0.4) 09/26/18 05:23 0.0 K/mm3 (0.0-0.1) 09/26/18 05:23 0.0 K/mm3 09/26/18 05:23 0.0 K/mm3 09/26/18 05:23 0.0 K/mm3 09/26/18 05:23 Blast Cells # 0.0 K/mm3 09/26/18 05:23 WBC Morphology Not Reportable 09/26/18 05:23 Hypersegmented Neuts Not Reportable 09/26/18 05:23 Hyposegmented Neuts Not Reportable 09/26/18 05:23 Hypogranular Neuts Not Reportable 09/26/18 05:23 Not Reportable 09/26/18 05:23 Not Reportable 09/26/18 05:23 Not Reportable 09/26/18 05:23 Not Reportable 09/26/18 05:23 Not Reportable 09/26/18 05:23 Not Reportable 09/26/18 05:23 Consistent w auto 09/26/18 05:23 Not Reportable 09/26/18 05:23 Plt Clumps, EDTA Not Reportable 09/26/18 05:23 Not Reportable 09/26/18 05:23 Not Reportable 09/26/18 05:23 Not Reportable 09/26/18 05:23 Plt Morphology Comment Not Reportable 09/26/18 05:23 RBC Morphology Not Reportable 09/26/18 05:23 Dimorphic RBCs Not Reportable 09/26/18 05:23 Not Reportable 09/26/18 05:23 Not Reportable 09/26/18 05:23 1+ 09/26/18 05:23 1+ 09/26/18 05:23 Not Reportable 09/26/18 05:23 Not Reportable 09/26/18 05:23 Not Reportable 09/26/18 05:23 Not Reportable 09/26/18 05:23 Not Reportable 09/26/18 05:23 Not Reportable 09/26/18 05:23 Not Reportable 09/26/18 05:23 Not Reportable 09/26/18 05:23 Not Reportable 09/26/18 05:23 Not Reportable 09/26/18 05:23 Not Reportable 09/26/18 05:23 Not Reportable 09/26/18 05:23 Not Reportable 09/26/18 05:23 Not Reportable 09/26/18 05:23 Not Reportable 09/26/18 05:23 Acanthocytes (Spur) Not Reportable 09/26/18 05:23 Rouleaux Not Reportable 09/26/18 05:23 Not Reportable 09/26/18 05:23 Not Reportable 09/26/18 05:23 Not Reportable 09/26/18 05:23 Not Reportable 09/26/18 05:23 Hem Pathologist Commnt No 09/26/18 05:23 PT 13.5 Sec. (12.2-14.9) 09/24/18 11:28 INR 0.97 (0.87-1.13) 09/24/18 11:28 APTT 25.8 Sec. (24.2-36.6) 09/24/18 11:28 POC ABG pH 7.375 (7.35-7.45) 09/24/18 17:11 POC ABG pO2 61 (80-105) L 09/24/18 17:11 POC ABG HCO3 44.4 (22-26 mml/L) 09/24/18 17:11 POC ABG Total CO2 47 (23-27mmol/L) 09/24/18 17:11 POC ABG O2 Sat 89 09/24/18 17:11 POC ABG Base Excess 19 ((-2) - (+3)mmol/L) 09/24/18 17:11 50 % 09/24/18 17:11 Sodium 140 mmol/L (137-145) 09/26/18 05:23 Potassium 5.1 mmol/L (3.6-5.0) H 09/26/18 05:23 Chloride 90.2 mmol/L (98-107) L 09/26/18 05:23 Carbon Dioxide 40 mmol/L (22-30) H 09/26/18 05:23 15 mmol/L 09/26/18 05:23 BUN 24 mg/dL (7-17) H 09/26/18 05:23 0.9 mg/dL (0.7-1.2) 09/26/18 05:23 Estimated GFR > 60 ml/min 09/26/18 05:23 27 % 09/26/18 05:23 Glucose 288 mg/dL (65-100) H 09/26/18 05:23 POC Glucose 322 (70-105) H 09/28/18 11:24 Calcium 8.0 mg/dL (8.4-10.2) L 09/26/18 05:23 0.20 mg/dL (0.1-1.2) 09/24/18 11:28 AST 28 units/L (5-40) 09/24/18 11:28 ALT 21 units/L (7-56) 09/24/18 11:28 64 units/L (35-129) 09/24/18 11:28 0.110 ng/mL (0.00-0.029) H* D 09/24/18 16:55 NT-Pro-B Natriuret Pep 2191 pg/mL (0-450) H 09/24/18 11:28 6.6 g/dL (6.3-8.2) 09/24/18 11:28 3.5 g/dL (3.9-5) L 09/24/18 11:28 1.1 % 09/24/18 11:28 Triglycerides 87 mg/dL (2-149) 09/24/18 11:28 Cholesterol 186 mg/dL (50-199) 09/24/18 11:28 73 mg/dL (50-130) 09/24/18 11:28 93 mg/dL (40-59) H 09/24/18 11:28 2.00 % 09/24/18 11:28 Active Medications - Current Medications Current Medications: Generic Name Dose Route Start Last Admin Trade Name Freq PRN Reason Stop Dose Admin Acetaminophen 650 mg 09/24/18 22:38 09/28/18 12:08 Tylenol PO 650 mg Q12H PRN Administration Non Cardiac Pain or Temp>100.5 Albuterol 2.5 mg 09/24/18 22:29 Proventil IH Q4HRT PRN Shortness Of Breath Albuterol 2.5 mg 09/28/18 12:00 Proventil IH QIDRT JOE Albuterol/Ipratropium 1 ampul 09/25/18 08:00 09/28/18 07:22 Duoneb *Not For Prn Use* IH 1 ampul QIDRT JOE Administration Aspirin 325 mg 09/25/18 10:00 09/28/18 10:09 Ecotrin PO 325 mg DAILY JOE Administration Atorvastatin Calcium 40 mg 09/25/18 22:00 09/27/18 22:00 Lipitor PO 40 mg QHS JOE Administration Budesonide 0.5 mg 09/24/18 22:45 09/28/18 07:22 Pulmicort IH 0.5 mg Q12HRT JOE Administration Bupropion HCl 100 mg 09/25/18 10:00 09/28/18 10:07 Wellbutrin Sr PO 100 mg DAILY JOE Administration Carbamazepine 200 mg 09/25/18 10:00 09/28/18 10:07 Tegretol PO 200 mg DAILY JOE Administration Carvedilol 6.25 mg 09/24/18 23:00 09/28/18 10:07 Coreg PO 6.25 mg BID JOE Administration Enoxaparin Sodium 40 mg 09/25/18 22:00 09/27/18 21:59 Lovenox SUB-Q 40 mg QDAY@2200 JOE Administration Famotidine 20 mg 09/25/18 10:00 09/28/18 10:06 Pepcid PO 20 mg DAILY JOE Administration Fluticasone Propionate 50 mcg 09/25/18 10:00 09/28/18 10:46 Flonase NS 50 mcg BID JOE Administration Hydralazine HCl 37.5 mg 09/24/18 23:00 09/28/18 05:19 Apresoline PO 37.5 mg Q8HR JOE Administration Ceftriaxone Sodium 2 gm in 100 mls @ 200 mls/hr 09/25/18 10:00 09/28/18 10:08 Rocephin/Ns 2 Gm/100 Ml IV 200 mls/hr Q24HR JOE Administration Protocol Azithromycin 500 mg/ Sodium 250 mls @ 250 mls/hr 09/25/18 10:00 09/28/18 10:08 Chloride IV 250 mls/hr Q24HR JOE Administration Insulin Glargine 15 units 09/27/18 22:00 09/27/18 21:58 Lantus SUB-Q 15 units QHS JOE Administration Insulin Human Lispro 0 unit 09/25/18 07:30 09/28/18 12:07 Humalog SUB-Q 8 unit ACHS JOE Administration Protocol Isosorbide Dinitrate 20 mg 09/24/18 23:00 09/28/18 05:19 Isordil Titradose PO 20 mg Q8HR JOE Administration Loratadine 10 mg 09/25/18 10:00 09/28/18 10:07 Claritin PO 10 mg DAILY JOE Administration Lorazepam 0.5 mg 09/25/18 10:00 09/28/18 10:08 Ativan PO 0.5 mg DAILY JOE Administration Losartan Potassium 50 mg 09/25/18 10:00 09/28/18 10:06 Cozaar PO 50 mg QDAY JOE Administration Metformin HCl 1,000 mg 09/25/18 08:00 09/28/18 10:07 Glucophage PO 1,000 mg BIDDIAB JOE Administration Methadone HCl 5 mg 09/25/18 10:00 09/28/18 10:07 Dolophine PO 5 mg BID JOE Administration Methylprednisolone Sodium Succinate 60 mg 09/25/18 16:13 09/28/18 05:20 Solu-Medrol IV 60 mg Q8HR JOE Administration Montelukast Sodium 10 mg 09/25/18 22:00 09/27/18 22:00 Singulair PO 10 mg QHS JOE Administration Polyethylene Glycol 17 gm 09/24/18 22:38 09/28/18 10:37 Miralax 3350 PO 17 gm QDAY PRN Administration Constipation Quetiapine Fumarate 300 mg 09/24/18 23:00 09/28/18 10:06 Seroquel PO 300 mg Q12HR JOE Administration Spironolactone 25 mg 09/25/18 10:00 09/28/18 10:06 Aldactone PO 25 mg QDAY JOE Administration Trazodone HCl 50 mg 09/25/18 22:00 09/27/18 22:06 Desyrel PO 50 mg QHS JOE Administration Zolpidem Tartrate 5 mg 09/24/18 22:38 09/28/18 03:30 Ambien PO 5 mg QHS PRN Administration Insomnia
--- NOTE | 2018-09-28 12:27 | Progress Note ---
Assessment and Plan Chronic systolic heart failure COPD exacerbation oxygen as an outpatient Dilated Nonischemic Cardiomyopathy LHC at [facility] in 2013: no significant CAD, EF 45% EF 40-45% by echo 04/2018 Chronic elevated troponin, nonspecific Diabetes Hypertension Recommendations: Fluid/sodium restriction. Medical management for heart failure to include diuretics, after-load agents and beta blockers. Otherwise, conservative cardiac management. Subjective Date of service: 09/28/18 Principal diagnosis: systolic heart failure,COPD exac, acute respiratory failure Interval history: Complains of generalized pain. No distress noted. Objective Vital Signs Temp Pulse Pulse Pulse Resp Resp BP 09/28/18 11:00 98.2 F 09/28/18 08:00 94 H 13 09/28/18 07:38 83 18 09/28/18 07:30 97.6 F 09/28/18 07:24 89 14 09/28/18 07:00 106 H 09/28/18 05:19 86 153/89 09/28/18 04:00 88 94 H 26 H 09/28/18 01:00 97.0 F L 09/28/18 00:00 94 H 18 09/27/18 22:23 93 H 26 H 129/76 09/27/18 22:02 96 H 129/71 09/27/18 22:00 95 H 129/71 09/27/18 21:53 98.7 F 09/27/18 20:11 100 H 18 09/27/18 20:00 96 H 14 09/27/18 19:57 95 H 18 09/27/18 17:21 103 H 20 09/27/18 17:13 102 H 20 09/27/18 16:48 102 H 137/54 09/27/18 16:47 104 H 137/54 09/27/18 16:00 98.4 F 108 H 20 09/27/18 15:00 108 H 09/27/18 12:27 111 H 20 Pulse Ox 09/28/18 11:00 09/28/18 08:00 95 09/28/18 07:38 09/28/18 07:30 09/28/18 07:24 92 09/28/18 07:00 09/28/18 05:19 09/28/18 04:00 96 09/28/18 01:00 09/28/18 00:00 91 09/27/18 22:23 95 09/27/18 22:02 09/27/18 22:00 09/27/18 21:53 09/27/18 20:11 09/27/18 20:00 92 09/27/18 19:57 95 09/27/18 17:21 09/27/18 17:13 09/27/18 16:48 09/27/18 16:47 09/27/18 16:00 94 09/27/18 15:00 09/27/18 12:27 - Physical Examination General: No Apparent Distress HEENT: Positive: PERRL Neck: Positive: trachea midline Cardiac: Positive: Reg Rate and Rhythm Lungs: Positive: Decreased Breath Sounds, Rhonchi Neuro: Positive: Grossly Intact Extremities: Present: +1 Edema
[2018-09-28] MEDS: PROVENTIL IH SCH ×3 (13:00→20:17)
[2018-09-28] MEDS: LOVENOX SUB-Q SCH (22:00)
[2018-09-28] MEDS: LANTUS SUB-Q SCH (22:00)
[2018-09-28] MEDS: DESYREL PO SCH (22:05)
[2018-09-28] MEDS: SINGULAIR PO SCH (22:10)
[2018-09-29] MEDS: APRESOLINE PO SCH ×3 (06:01→23:02)
[2018-09-29] MEDS: SOLU-Medrol IV SCH ×3 (06:01→22:10)
[2018-09-29] MEDS: ISORDIL TITRADOSE PO SCH ×3 (06:04→22:00)
[2018-09-29] MEDS: PROVENTIL IH SCH ×4 (07:48→20:01)
[2018-09-29] MEDS: PULMICORT IH SCH ×2 (07:48→20:00)
[2018-09-29] MEDS: HumaLOG SUB-Q SCH ×4 (09:00→22:08)
[2018-09-29] MEDS: FLONASE NS SCH ×2 (09:08→22:04)
[2018-09-29] MEDS: ROCEPHIN/NS 2 GM/100 ML 2 GM/100 ML BAG IV SCH (09:09)
[2018-09-29] MEDS: ZITHROMAX 500 MG in NACL 0.9% 250ML 250 ML IV SCH (09:10)
[2018-09-29] MEDS: PEPCID PO SCH (09:11)
[2018-09-29] MEDS: GLUCOPHAGE PO SCH ×2 (09:11→18:05)
[2018-09-29] MEDS: COZAAR PO SCH (09:12)
[2018-09-29] MEDS: CLARITIN PO SCH (09:12)
[2018-09-29] MEDS: ALDACTONE PO SCH (09:12)
[2018-09-29] MEDS: DOLOPHINE PO SCH ×2 (09:13→23:03)
[2018-09-29] MEDS: WELLBUTRIN SR PO SCH (09:13)
[2018-09-29] MEDS: ATIVAN PO SCH (09:13)
[2018-09-29] MEDS: ECOTRIN PO SCH (09:14)
[2018-09-29] MEDS: COREG PO SCH ×2 (09:15→23:02)
--- NOTE | 2018-09-29 09:33 | Progress Note ---
Assessment and Plan ARF-MV episode r/o A/C hypercapnic respiratory failure. ABG suggestive but no PaCO2 reported on prior 3 ABG's sets s/p systolic heart failure exacerbation COPD, with exacerbation. Emphysema by CTA,mild atelectasis vs infiltrates. No fever r/o OHS vs COPD Bipolar disorder Former smoker Recommendations NIV at night as needed CHF management per cardiology recommendations Consider switch to oral prednisone Continue nebulizer therapy Update ABG prior to DH Add Mucinex Need OPD PFT for COPD vs OHS triage DVT prophylaxis Avoid sedatives,narcotics Can re-start in Symbicort Discussed with the patient in detail. All questions answered. Subjective Date of service: 09/29/18 Principal diagnosis: systolic heart failure,COPD exac, acute respiratory failure Interval history: No events overnight. Complains that she is missing her Mucinex, some cough Objective Vital Signs - 12hr 09/28/18 09/28/18 09/29/18 22:00 23:00 00:00 Temperature 98.1 F 99.8 F H Pulse Rate 96 H 102 H Pulse Rate [ Anterior Bilateral Throughout] Pulse Rate [ 91 H From Monitor] Respiratory 15 Rate Respiratory Rate [Anterior Bilateral Throughout] Blood Pressure 139/80 O2 Sat by Pulse 94 93 Oximetry 09/29/18 09/29/18 09/29/18 01:15 03:00 04:00 Temperature 98.3 F 98.9 F Pulse Rate 90 98 H Pulse Rate [ Anterior Bilateral Throughout] Pulse Rate [ 99 H From Monitor] Respiratory 26 H 20 Rate Respiratory Rate [Anterior Bilateral Throughout] Blood Pressure O2 Sat by Pulse 94 93 Oximetry 09/29/18 09/29/18 09/29/18 06:01 06:04 07:00 Temperature Pulse Rate 104 H 100 H 96 H Pulse Rate [ Anterior Bilateral Throughout] Pulse Rate [ From Monitor] Respiratory Rate Respiratory Rate [Anterior Bilateral Throughout] Blood Pressure 145/92 145/92 O2 Sat by Pulse Oximetry 09/29/18 09/29/18 09/29/18 07:51 08:00 08:24 Temperature 98.9 F Pulse Rate Pulse Rate [ 94 H 91 H Anterior Bilateral Throughout] Pulse Rate [ From Monitor] Respiratory Rate Respiratory 20 17 Rate [Anterior Bilateral Throughout] Blood Pressure O2 Sat by Pulse 96 Oximetry Constitutional: no acute distress, alert, other (morbidly obese) Eyes: non-icteric ENT: oropharynx moist Neck: supple, other (large in circumference) Effort: normal Ascultation: Bilateral: diminished breath sounds, wheezes (mild) Percussion: Bilateral: not dull Tactile fremitus: Bilateral: normal Cardiovascular: regular rate and rhythm Gastrointestinal: normoactive bowel sounds, absent bowel sounds, soft Extremities: no cyanosis, edema Neurologic: normal mental status, non-focal exam, pupils equal and round, CN II- XII normal CBC and BMP: 09/26/18 05:23 09/26/18 05:23 ABG, PT/INR, D-dimer: ABG POC ABG pH 7.375 (7.35-7.45) 09/24/18 17:11 POC ABG pO2 61 (80-105) L 09/24/18 17:11 POC ABG HCO3 44.4 (22-26 mml/L) 09/24/18 17:11 POC ABG Total CO2 47 (23-27mmol/L) 09/24/18 17:11 POC ABG O2 Sat 89 09/24/18 17:11 PT/INR, D-dimer PT 13.5 Sec. (12.2-14.9) 09/24/18 11:28 INR 0.97 (0.87-1.13) 09/24/18 11:28 Abnormal lab findings: Abnormal Labs 09/24/18 09/24/18 09/24/18 11:28 11:28 12:46 WBC RDW 17.0 H Plt Count Seg Neuts % (Manual) 77.0 H Lymphocytes % (Manual) Seg Neutrophils # Man POC ABG pH 7.256 L POC ABG pO2 161 H Potassium 5.9 H Chloride 92.3 L Carbon Dioxide 31 H BUN Glucose 280 H POC Glucose Calcium Troponin T 0.069 H NT-Pro-B Natriuret Pep 2191 H Albumin 3.5 L HDL Cholesterol 93 H 09/24/18 09/24/18 09/24/18 14:15 14:46 16:55 WBC RDW Plt Count Seg Neuts % (Manual) Lymphocytes % (Manual) Seg Neutrophils # Man POC ABG pH 7.336 L POC ABG pO2 68 L Potassium Chloride Carbon Dioxide BUN Glucose POC Glucose Calcium Troponin T 0.067 H 0.110 H* D NT-Pro-B Natriuret Pep Albumin HDL Cholesterol 0609/24/18 09/25/18 17:11 23:51 07:27 WBC RDW Plt Count Seg Neuts % (Manual) Lymphocytes % (Manual) Seg Neutrophils # Man POC ABG pH POC ABG pO2 61 L Potassium Chloride Carbon Dioxide BUN Glucose POC Glucose 160 H 231 H Calcium Troponin T NT-Pro-B Natriuret Pep Albumin HDL Cholesterol 09/25/18 09/25/18 09/25/18 11:48 15:47 16:24 WBC RDW Plt Count Seg Neuts % (Manual) Lymphocytes % (Manual) Seg Neutrophils # Man POC ABG pH POC ABG pO2 Potassium Chloride 92.2 L Carbon Dioxide 40 H D BUN 19 H Glucose 183 H POC Glucose 307 H 272 H Calcium 8.3 L Troponin T NT-Pro-B Natriuret Pep Albumin HDL Cholesterol 09/25/18 09/26/18 09/26/18 20:13 05:23 05:23 WBC 17.3 H RDW 16.5 H Plt Count 129 L Seg Neuts % (Manual) 87.0 H Lymphocytes % (Manual) 8.0 L Seg Neutrophils # Man 15.1 H POC ABG pH POC ABG pO2 Potassium 5.1 H Chloride 90.2 L Carbon Dioxide 40 H BUN 24 H Glucose 288 H POC Glucose 144 H Calcium 8.0 L Troponin T NT-Pro-B Natriuret Pep Albumin HDL Cholesterol 09/26/18 09/26/18 09/26/18 08:47 12:21 16:35 WBC RDW Plt Count Seg Neuts % (Manual) Lymphocytes % (Manual) Seg Neutrophils # Man POC ABG pH POC ABG pO2 Potassium Chloride Carbon Dioxide BUN Glucose POC Glucose 326 H 304 H 266 H Calcium Troponin T NT-Pro-B Natriuret Pep Albumin HDL Cholesterol 09/26/18 09/27/18 09/27/18 21:29 08:25 11:42 WBC RDW Plt Count Seg Neuts % (Manual) Lymphocytes % (Manual) Seg Neutrophils # Man POC ABG pH POC ABG pO2 Potassium Chloride Carbon Dioxide BUN Glucose POC Glucose 350 H 284 H 317 H Calcium Troponin T NT-Pro-B Natriuret Pep Albumin HDL Cholesterol 09/27/18 09/27/18 09/28/18 16:05 21:21 07:18 WBC RDW Plt Count Seg Neuts % (Manual) Lymphocytes % (Manual) Seg Neutrophils # Man POC ABG pH POC ABG pO2 Potassium Chloride Carbon Dioxide BUN Glucose POC Glucose 338 H 390 H 313 H Calcium Troponin T NT-Pro-B Natriuret Pep Albumin HDL Cholesterol 09/28/18 09/28/18 09/28/18 11:24 16:02 22:05 WBC RDW Plt Count Seg Neuts % (Manual) Lymphocytes % (Manual) Seg Neutrophils # Man POC ABG pH POC ABG pO2 Potassium Chloride Carbon Dioxide BUN Glucose POC Glucose 322 H 251 H 237 H Calcium Troponin T NT-Pro-B Natriuret Pep Albumin HDL Cholesterol 09/29/18 08:42 WBC RDW Plt Count Seg Neuts % (Manual) Lymphocytes % (Manual) Seg Neutrophils # Man POC ABG pH POC ABG pO2 Potassium Chloride Carbon Dioxide BUN Glucose POC Glucose 406 H Calcium Troponin T NT-Pro-B Natriuret Pep Albumin HDL Cholesterol
--- NOTE | 2018-09-29 13:23 | Progress Note ---
Assessment and Plan Assessment and plan: 48-year-old -[place] female with medical history significant for morbid obesity, chronic systolic CHF, COPD, diabetes, sleep apnea presented to the emergency department from [facility] with complaints of shortness of breath. Patient was placed on BiPAP and admitted to MICU. Patient was intubated previously. Patient's also complaining of cough which is productive with white sputum but denied fever, chills. Acute respiratory failure with Hypercarbia and hypoxia on high flow during day and NIV at night COPD exacerbation - Patient is on IV Solu-Medrol, antibiotic, DuoNeb's and nebulizer treatment Acute exacerbation of Chronic systolic heart failure, elevated troponin - Cardiology consulted - Recommend medical management, cont lasix Diabetes mellitus - Sliding-scale insulin, ADA diet, Accu-Chek and adjust insulin as needed HLD - Continue statin DVT prophylaxis - On Lovenox Disposition; continue IMCU care History Interval history: The patient continued to desaturate when eating, wheezing and shortness of breath reported by patient She denies chest pain She admits to cough productive of thick yellow sputum Denies fevers, denies vomiting Hospitalist Physical - Physical exam Narrative exam: General.: Mild to moderate distress due to shortness of breath HEENT: Moist mucous membranes, extraocular muscles intact, no lymphadenopathy Neck: supple Cardiac: S1-S2 heard Lungs: Bilateral wheezing, decreased air entry Abdomen: soft , nontender, nondistended, bowel sounds positive Extremities: no edema clubbing or cyanosis Skin: no rash or lesions Neurologic: no gross focal deficits, lacks insight, poor cognition; apparently patient had brain surgery in the past and has not been the same since Psych: calm, and cooperative - Constitutional Vitals: Temp Pulse Resp BP Pulse Ox 98.9 F 112 H 15 145/92 96 09/29/18 08:00 09/29/18 12:00 09/29/18 12:00 09/29/18 06:04 09/29/18 07:51 General appearance: Present: mild distress Results - Labs CBC & Chem 7: 09/26/18 05:23 09/26/18 05:23 Labs: Laboratory Last Values WBC 17.3 K/mm3 (4.5-11.0) H 09/26/18 05:23 RBC 3.98 M/mm3 (3.65-5.03) 09/26/18 05:23 Hgb 12.1 gm/dl (10.1-14.3) 09/26/18 05:23 Hct 38.1 % (30.3-42.9) 09/26/18 05:23 MCV 96 fl (79-97) 09/26/18 05:23 MCH 30 pg (28-32) 09/26/18 05:23 MCHC 32 % (30-34) 09/26/18 05:23 RDW 16.5 % (13.2-15.2) H 09/26/18 05:23 Plt Count 129 K/mm3 (140-440) L 09/26/18 05:23 Lymph % (Auto) Records Officer 09/26/18 05:23 [place] % (Auto) Records Officer 09/26/18 05:23 Eos % (Auto) Records Officer 09/26/18 05:23 Baso % (Auto) Records Officer 09/26/18 05:23 Lymph # Records Officer 09/26/18 05:23 [place] # Records Officer 09/26/18 05:23 Eos # Records Officer 09/26/18 05:23 Baso # Records Officer 09/26/18 05:23 Add Manual Diff Complete 09/26/18 05:23 Total Counted 100 09/26/18 05:23 Seg Neutrophils % Records Officer 09/26/18 05:23 Seg Neuts % (Manual) 87.0 % (40.0-70.0) H 09/26/18 05:23 1.0 % 09/26/18 05:23 8.0 % (13.4-35.0) L 09/26/18 05:23 Reactive Lymphs % (Man) 0 % 09/26/18 05:23 4.0 % (0.0-7.3) 09/26/18 05:23 0 % (0.0-4.3) 09/26/18 05:23 0 % (0.0-1.8) 09/26/18 05:23 0 % 09/26/18 05:23 0 % 09/26/18 05:23 0 % 09/26/18 05:23 0 % 09/26/18 05:23 Nucleated RBC % Not Reportable 09/26/18 05:23 Seg Neutrophils # Records Officer 09/26/18 05:23 Seg Neutrophils # Man 15.1 K/mm3 (1.8-7.7) H 09/26/18 05:23 Band Neutrophils # 0.2 K/mm3 09/26/18 05:23 1.4 K/mm3 (1.2-5.4) 09/26/18 05:23 Abs React Lymphs (Man) 0.0 K/mm3 09/26/18 05:23 0.7 K/mm3 (0.0-0.8) 09/26/18 05:23 0.0 K/mm3 (0.0-0.4) 09/26/18 05:23 0.0 K/mm3 (0.0-0.1) 09/26/18 05:23 0.0 K/mm3 09/26/18 05:23 0.0 K/mm3 09/26/18 05:23 0.0 K/mm3 09/26/18 05:23 Blast Cells # 0.0 K/mm3 09/26/18 05:23 WBC Morphology Not Reportable 09/26/18 05:23 Hypersegmented Neuts Not Reportable 09/26/18 05:23 Hyposegmented Neuts Not Reportable 09/26/18 05:23 Hypogranular Neuts Not Reportable 09/26/18 05:23 Not Reportable 09/26/18 05:23 Not Reportable 09/26/18 05:23 Not Reportable 09/26/18 05:23 Not Reportable 09/26/18 05:23 Not Reportable 09/26/18 05:23 Not Reportable 09/26/18 05:23 Consistent w auto 09/26/18 05:23 Not Reportable 09/26/18 05:23 Plt Clumps, EDTA Not Reportable 09/26/18 05:23 Not Reportable 09/26/18 05:23 Not Reportable 09/26/18 05:23 Not Reportable 09/26/18 05:23 Plt Morphology Comment Not Reportable 09/26/18 05:23 RBC Morphology Not Reportable 09/26/18 05:23 Dimorphic RBCs Not Reportable 09/26/18 05:23 Not Reportable 09/26/18 05:23 Not Reportable 09/26/18 05:23 1+ 09/26/18 05:23 1+ 09/26/18 05:23 Not Reportable 09/26/18 05:23 Not Reportable 09/26/18 05:23 Not Reportable 09/26/18 05:23 Not Reportable 09/26/18 05:23 Not Reportable 09/26/18 05:23 Not Reportable 09/26/18 05:23 Not Reportable 09/26/18 05:23 Not Reportable 09/26/18 05:23 Not Reportable 09/26/18 05:23 Not Reportable 09/26/18 05:23 Not Reportable 09/26/18 05:23 Not Reportable 09/26/18 05:23 Not Reportable 09/26/18 05:23 Not Reportable 09/26/18 05:23 Not Reportable 09/26/18 05:23 Acanthocytes (Spur) Not Reportable 09/26/18 05:23 Rouleaux Not Reportable 09/26/18 05:23 Not Reportable 09/26/18 05:23 Not Reportable 09/26/18 05:23 Not Reportable 09/26/18 05:23 Not Reportable 09/26/18 05:23 Hem Pathologist Commnt No 09/26/18 05:23 PT 13.5 Sec. (12.2-14.9) 09/24/18 11:28 INR 0.97 (0.87-1.13) 09/24/18 11:28 APTT 25.8 Sec. (24.2-36.6) 09/24/18 11:28 POC ABG pH 7.375 (7.35-7.45) 09/24/18 17:11 POC ABG pO2 61 (80-105) L 09/24/18 17:11 POC ABG HCO3 44.4 (22-26 mml/L) 09/24/18 17:11 POC ABG Total CO2 47 (23-27mmol/L) 09/24/18 17:11 POC ABG O2 Sat 89 09/24/18 17:11 POC ABG Base Excess 19 ((-2) - (+3)mmol/L) 09/24/18 17:11 50 % 09/24/18 17:11 Sodium 140 mmol/L (137-145) 09/26/18 05:23 Potassium 5.1 mmol/L (3.6-5.0) H 09/26/18 05:23 Chloride 90.2 mmol/L (98-107) L 09/26/18 05:23 Carbon Dioxide 40 mmol/L (22-30) H 09/26/18 05:23 15 mmol/L 09/26/18 05:23 BUN 24 mg/dL (7-17) H 09/26/18 05:23 0.9 mg/dL (0.7-1.2) 09/26/18 05:23 Estimated GFR > 60 ml/min 09/26/18 05:23 27 % 09/26/18 05:23 Glucose 288 mg/dL (65-100) H 09/26/18 05:23 POC Glucose 393 (70-105) H 09/29/18 11:47 Calcium 8.0 mg/dL (8.4-10.2) L 09/26/18 05:23 0.20 mg/dL (0.1-1.2) 09/24/18 11:28 AST 28 units/L (5-40) 09/24/18 11:28 ALT 21 units/L (7-56) 09/24/18 11:28 64 units/L (35-129) 09/24/18 11:28 0.110 ng/mL (0.00-0.029) H* D 09/24/18 16:55 NT-Pro-B Natriuret Pep 2191 pg/mL (0-450) H 09/24/18 11:28 6.6 g/dL (6.3-8.2) 09/24/18 11:28 3.5 g/dL (3.9-5) L 09/24/18 11:28 1.1 % 09/24/18 11:28 Triglycerides 87 mg/dL (2-149) 09/24/18 11:28 Cholesterol 186 mg/dL (50-199) 09/24/18 11:28 73 mg/dL (50-130) 09/24/18 11:28 93 mg/dL (40-59) H 09/24/18 11:28 2.00 % 09/24/18 11:28 Active Medications - Current Medications Current Medications: Generic Name Dose Route Start Last Admin Trade Name Freq PRN Reason Stop Dose Admin Acetaminophen 650 mg 09/24/18 22:38 09/28/18 12:08 Tylenol PO 650 mg Q12H PRN Administration Non Cardiac Pain or Temp>100.5 Albuterol 2.5 mg 09/24/18 22:29 Proventil IH Q4HRT PRN Shortness Of Breath Albuterol 2.5 mg 09/28/18 12:00 09/29/18 13:15 Proventil IH 2.5 mg QIDRT JOE Administration Aspirin 325 mg 09/25/18 10:00 09/29/18 09:14 Ecotrin PO 325 mg DAILY JOE Administration Atorvastatin Calcium 40 mg 09/25/18 22:00 09/28/18 22:00 Lipitor PO 40 mg QHS JOE Administration Budesonide 0.5 mg 09/24/18 22:45 09/29/18 07:48 Pulmicort IH 0.5 mg Q12HRT JOE Administration Bupropion HCl 100 mg 09/25/18 10:00 09/29/18 09:13 Wellbutrin Sr PO 100 mg DAILY JOE Administration Carbamazepine 200 mg 09/25/18 10:00 09/29/18 09:13 Tegretol PO 200 mg DAILY JOE Administration Carvedilol 6.25 mg 09/24/18 23:00 09/29/18 09:15 Coreg PO 6.25 mg BID JOE Administration Enoxaparin Sodium 40 mg 09/25/18 22:00 09/28/18 22:00 Lovenox SUB-Q 40 mg QDAY@2200 JOE Administration Famotidine 20 mg 09/25/18 10:00 09/29/18 09:11 Pepcid PO 20 mg DAILY JOE Administration Fluticasone Propionate 50 mcg 09/25/18 10:00 09/29/18 09:08 Flonase NS 50 mcg BID JOE Administration Guaifenesin 600 mg 09/29/18 10:30 Mucinex Er PO BID JOE Hydralazine HCl 37.5 mg 09/24/18 23:00 09/29/18 13:19 Apresoline PO 37.5 mg Q8HR JOE Administration Ceftriaxone Sodium 2 gm in 100 mls @ 200 mls/hr 09/25/18 10:00 09/29/18 09:09 Rocephin/Ns 2 Gm/100 Ml IV 200 mls/hr Q24HR JOE Administration Protocol Azithromycin 500 mg/ Sodium 250 mls @ 250 mls/hr 09/25/18 10:00 09/29/18 09:10 Chloride IV 250 mls/hr Q24HR JOE Administration Insulin Glargine 15 units 09/27/18 22:00 09/28/18 22:00 Lantus SUB-Q 15 units QHS JOE Administration Insulin Human Lispro 0 unit 09/25/18 07:30 09/29/18 13:21 Humalog SUB-Q 10 unit ACHS JOE Administration Protocol Isosorbide Dinitrate 20 mg 09/24/18 23:00 09/29/18 13:19 Isordil Titradose PO 20 mg Q8HR JOE Administration Loratadine 10 mg 09/25/18 10:00 09/29/18 09:12 Claritin PO 10 mg DAILY JOE Administration Lorazepam 0.5 mg 09/25/18 10:00 09/29/18 09:13 Ativan PO 0.5 mg DAILY JOE Administration Losartan Potassium 50 mg 09/25/18 10:00 09/29/18 09:12 Cozaar PO 50 mg QDAY JOE Administration Metformin HCl 1,000 mg 09/25/18 08:00 09/29/18 09:11 Glucophage PO 1,000 mg BIDDIAB JOE Administration Methadone HCl 5 mg 09/25/18 10:00 09/29/18 09:13 Dolophine PO 5 mg BID JOE Administration Methylprednisolone Sodium Succinate 60 mg 09/25/18 16:13 09/29/18 13:18 Solu-Medrol IV 60 mg Q8HR JOE Administration Montelukast Sodium 10 mg 09/25/18 22:00 09/28/18 22:10 Singulair PO 10 mg QHS JOE Administration Polyethylene Glycol 17 gm 09/24/18 22:38 09/28/18 10:37 Miralax 3350 PO 17 gm QDAY PRN Administration Constipation Quetiapine Fumarate 300 mg 09/24/18 23:00 09/29/18 09:12 Seroquel PO 300 mg Q12HR JOE Administration Spironolactone 25 mg 09/25/18 10:00 09/29/18 09:12 Aldactone PO 25 mg QDAY JOE Administration Trazodone HCl 50 mg 09/25/18 22:00 09/28/18 22:05 Desyrel PO 50 mg QHS JOE Administration Zolpidem Tartrate 5 mg 09/24/18 22:38 09/28/18 03:30 Ambien PO 5 mg QHS PRN Administration Insomnia
[2018-09-29] MEDS: MUCINEX ER PO SCH ×2 (13:27→22:59)
[2018-09-29] MEDS: LOVENOX SUB-Q SCH (22:05)
[2018-09-29] MEDS: SINGULAIR PO SCH (22:23)
[2018-09-29] MEDS: DESYREL PO SCH (22:58)
[2018-09-29] MEDS: LANTUS SUB-Q SCH (23:07)
[2018-09-30] MEDS: SOLU-Medrol IV SCH ×3 (05:38→22:15)
[2018-09-30] MEDS: APRESOLINE PO SCH ×3 (05:39→22:19)
[2018-09-30] MEDS: ISORDIL TITRADOSE PO SCH ×3 (05:41→22:19)
[2018-09-30] MEDS: TYLENOL PO PRN ×2 (05:49→16:35)
[2018-09-30] MEDS: GLUCOPHAGE PO SCH ×2 (07:59→16:32)
[2018-09-30] MEDS: HumaLOG SUB-Q SCH ×4 (07:59→22:19)
[2018-09-30] MEDS: PROVENTIL IH SCH ×4 (08:50→20:35)
[2018-09-30] MEDS: PULMICORT IH SCH ×2 (08:50→20:35)
[2018-09-30] MEDS: ROCEPHIN/NS 2 GM/100 ML 2 GM/100 ML BAG IV SCH (09:15)
[2018-09-30] MEDS: ZITHROMAX 500 MG in NACL 0.9% 250ML 250 ML IV SCH (09:15)
[2018-09-30] MEDS: DOLOPHINE PO SCH ×2 (09:16→22:18)
[2018-09-30] MEDS: ATIVAN PO SCH (09:16)
[2018-09-30] MEDS: ALDACTONE PO SCH (09:17)
[2018-09-30] MEDS: COZAAR PO SCH (09:17)
[2018-09-30] MEDS: MUCINEX ER PO SCH ×2 (09:17→22:24)
[2018-09-30] MEDS: PEPCID PO SCH (09:17)
[2018-09-30] MEDS: COREG PO SCH ×2 (09:18→22:18)
[2018-09-30] MEDS: ECOTRIN PO SCH (09:18)
[2018-09-30] MEDS: CLARITIN PO SCH (09:18)
[2018-09-30] MEDS: FLONASE NS SCH ×2 (09:19→22:14)
--- NOTE | 2018-09-30 09:21 | Progress Note ---
Assessment and Plan ARF-MV episode r/o A/C hypercapnic respiratory failure. ABG suggestive but no PaCO2 reported on prior 3 ABG's sets s/p Systolic heart failure exacerbation COPD, with exacerbation. Emphysema by CTA,mild atelectasis vs infiltrates. No fever r/o OHS vs COPD Bipolar disorder Former smoker Recommendations Chest x-rays Wean high flow oxygen as tolerated CHF management Monitor, correct blood sugar Consider discontinuing IV steroids, switch to oral Ltroqbvjst-70-80 mg per day and monitor blood sugar Continue nebulizer therapy Update ABG prior to OPD PFT for COPD vs OHS triage Avoid sedatives,narcotics Can re-start in Symbicort at discharge time Discussed with the patient in detail. All questions answered. Subjective Date of service: 09/30/18 Principal diagnosis: systolic heart failure,COPD exac, acute respiratory failure Interval history: Reportedly used NIV last night. Found today on high flow oxygen 55% better saturation 95%. Feels better, minimal cough and no shortness of breath Objective Vital Signs - 12hr 09/29/18 09/29/18 09/29/18 22:00 23:00 23:02 Temperature Pulse Rate 93 H 91 H 94 H Pulse Rate [ Anterior Bilateral Throughout] Pulse Rate [ From Monitor] Respiratory Rate Respiratory Rate [Anterior Bilateral Throughout] Blood Pressure 128/80 128/80 O2 Sat by Pulse Oximetry 09/30/18 09/30/18 09/30/18 00:00 03:00 04:00 Temperature 98.7 F 98.9 F Pulse Rate 88 Pulse Rate [ Anterior Bilateral Throughout] Pulse Rate [ 100 H 88 From Monitor] Respiratory 18 16 Rate Respiratory Rate [Anterior Bilateral Throughout] Blood Pressure O2 Sat by Pulse 95 95 Oximetry 09/30/18 09/30/18 09/30/18 05:39 05:41 08:00 Temperature 99 F Pulse Rate 93 H 96 H Pulse Rate [ Anterior Bilateral Throughout] Pulse Rate [ 96 H From Monitor] Respiratory 16 Rate Respiratory Rate [Anterior Bilateral Throughout] Blood Pressure 138/83 138/83 O2 Sat by Pulse 95 Oximetry 09/30/18 09/30/18 09/30/18 08:50 08:52 09:06 Temperature Pulse Rate Pulse Rate [ 91 H 96 H Anterior Bilateral Throughout] Pulse Rate [ From Monitor] Respiratory Rate Respiratory 14 14 Rate [Anterior Bilateral Throughout] Blood Pressure O2 Sat by Pulse 93 Oximetry Constitutional: no acute distress, alert, other (morbidly obese) Eyes: non-icteric ENT: oropharynx moist Neck: supple, other (large in circumference) Effort: normal Ascultation: Bilateral: clear, diminished breath sounds Percussion: Bilateral: not dull Tactile fremitus: Bilateral: normal Cardiovascular: regular rate and rhythm Gastrointestinal: normoactive bowel sounds, absent bowel sounds, soft Extremities: no cyanosis, edema Neurologic: normal mental status, non-focal exam, pupils equal and round, CN II- XII normal CBC and BMP: 09/26/18 05:23 09/26/18 05:23 ABG, PT/INR, D-dimer: ABG POC ABG pH 7.375 (7.35-7.45) 09/24/18 17:11 POC ABG pO2 61 (80-105) L 09/24/18 17:11 POC ABG HCO3 44.4 (22-26 mml/L) 09/24/18 17:11 POC ABG Total CO2 47 (23-27mmol/L) 09/24/18 17:11 POC ABG O2 Sat 89 09/24/18 17:11 PT/INR, D-dimer PT 13.5 Sec. (12.2-14.9) 09/24/18 11:28 INR 0.97 (0.87-1.13) 09/24/18 11:28 Abnormal lab findings: Abnormal Labs 09/24/18 09/24/18 09/24/18 11:28 11:28 12:46 WBC RDW 17.0 H Plt Count Seg Neuts % (Manual) 77.0 H Lymphocytes % (Manual) Seg Neutrophils # Man POC ABG pH 7.256 L POC ABG pO2 161 H Potassium 5.9 H Chloride 92.3 L Carbon Dioxide 31 H BUN Glucose 280 H POC Glucose Calcium Troponin T 0.069 H NT-Pro-B Natriuret Pep 2191 H Albumin 3.5 L HDL Cholesterol 93 H 09/24/18 09/24/18 09/24/18 14:15 14:46 16:55 WBC RDW Plt Count Seg Neuts % (Manual) Lymphocytes % (Manual) Seg Neutrophils # Man POC ABG pH 7.336 L POC ABG pO2 68 L Potassium Chloride Carbon Dioxide BUN Glucose POC Glucose Calcium Troponin T 0.067 H 0.110 H* D NT-Pro-B Natriuret Pep Albumin HDL Cholesterol 09/24/18 09/24/18 09/25/18 17:11 23:51 07:27 WBC RDW Plt Count Seg Neuts % (Manual) Lymphocytes % (Manual) Seg Neutrophils # Man POC ABG pH POC ABG pO2 61 L Potassium Chloride Carbon Dioxide BUN Glucose POC Glucose 160 H 231 H Calcium Troponin T NT-Pro-B Natriuret Pep Albumin HDL Cholesterol 09/25/18 09/25/18 09/25/18 11:48 15:47 16:24 WBC RDW Plt Count Seg Neuts % (Manual) Lymphocytes % (Manual) Seg Neutrophils # Man POC ABG pH POC ABG pO2 Potassium Chloride 92.2 L Carbon Dioxide 40 H D BUN 19 H Glucose 183 H POC Glucose 307 H 272 H Calcium 8.3 L Troponin T NT-Pro-B Natriuret Pep Albumin HDL Cholesterol 09/25/18 09/26/18 09/26/18 20:13 05:23 05:23 WBC 17.3 H RDW 16.5 H Plt Count 129 L Seg Neuts % (Manual) 87.0 H Lymphocytes % (Manual) 8.0 L Seg Neutrophils # Man 15.1 H POC ABG pH POC ABG pO2 Potassium 5.1 H Chloride 90.2 L Carbon Dioxide 40 H BUN 24 H Glucose 288 H POC Glucose 144 H Calcium 8.0 L Troponin T NT-Pro-B Natriuret Pep Albumin HDL Cholesterol 09/26/18 09/26/18 09/26/18 08:47 12:21 16:35 WBC RDW Plt Count Seg Neuts % (Manual) Lymphocytes % (Manual) Seg Neutrophils # Man POC ABG pH POC ABG pO2 Potassium Chloride Carbon Dioxide BUN Glucose POC Glucose 326 H 304 H 266 H Calcium Troponin T NT-Pro-B Natriuret Pep Albumin HDL Cholesterol 09/26/18 09/27/18 09/27/18 21:29 08:25 11:42 WBC RDW Plt Count Seg Neuts % (Manual) Lymphocytes % (Manual) Seg Neutrophils # Man POC ABG pH POC ABG pO2 Potassium Chloride Carbon Dioxide BUN Glucose POC Glucose 350 H 284 H 317 H Calcium Troponin T NT-Pro-B Natriuret Pep Albumin HDL Cholesterol 09/27/18 09/27/18 09/28/18 16:05 21:21 07:18 WBC RDW Plt Count Seg Neuts % (Manual) Lymphocytes % (Manual) Seg Neutrophils # Man POC ABG pH POC ABG pO2 Potassium Chloride Carbon Dioxide BUN Glucose POC Glucose 338 H 390 H 313 H Calcium Troponin T NT-Pro-B Natriuret Pep Albumin HDL Cholesterol 09/28/18 09/28/18 09/28/18 11:24 16:02 22:05 WBC RDW Plt Count Seg Neuts % (Manual) Lymphocytes % (Manual) Seg Neutrophils # Man POC ABG pH POC ABG pO2 Potassium Chloride Carbon Dioxide BUN Glucose POC Glucose 322 H 251 H 237 H Calcium Troponin T NT-Pro-B Natriuret Pep Albumin HDL Cholesterol 09/29/18 09/29/18 09/29/18 08:42 11:47 16:32 WBC RDW Plt Count Seg Neuts % (Manual) Lymphocytes % (Manual) Seg Neutrophils # Man POC ABG pH POC ABG pO2 Potassium Chloride Carbon Dioxide BUN Glucose POC Glucose 406 H 393 H 213 H Calcium Troponin T NT-Pro-B Natriuret Pep Albumin HDL Cholesterol 09/29/18 21:55 WBC RDW Plt Count Seg Neuts % (Manual) Lymphocytes % (Manual) Seg Neutrophils # Man POC ABG pH POC ABG pO2 Potassium Chloride Carbon Dioxide BUN Glucose POC Glucose 318 H Calcium Troponin T NT-Pro-B Natriuret Pep Albumin HDL Cholesterol
[2018-09-30] MEDS: WELLBUTRIN SR PO SCH (09:25)
[2018-09-30] MEDS ORDERED: LANTUS SUB-Q SCH (10:38)
--- NOTE | 2018-09-30 11:12 | XRay Report ---
AP CHEST: HISTORY: Hypoxia, COPD Mild improvement in pulmonary venous congestion is demonstrated sent 09/24/18. Borderline to mild cardiomegaly is stable. Small left pleural effusion has nearly resolved. Minor scarring or discoid atelectasis in both perihilar regions is unchanged. No evidence for pneumonia. IMPRESSION: Mild improvement in volume overload since .
[2018-09-30] MEDS ORDERED: LANTUS SUB-Q ONE (11:38)
[2018-09-30] MEDS ORDERED: HALDOL IM ONE (21:14)
[2018-09-30] MEDS: ATIVAN IV PRN (22:12)
[2018-09-30] MEDS: LOVENOX SUB-Q SCH (22:15)
[2018-09-30] MEDS: SINGULAIR PO SCH (22:17)
[2018-09-30] MEDS: DESYREL PO SCH (22:17)
[2018-09-30] MEDS: AMBIEN PO PRN (22:18)
[2018-10-01] MEDS: ISORDIL TITRADOSE PO SCH ×3 (06:18→22:38)
[2018-10-01] MEDS: APRESOLINE PO SCH ×3 (06:19→22:38)
[2018-10-01] MEDS: SOLU-Medrol IV SCH ×3 (06:19→22:37)
[2018-10-01] MEDS: GLUCOPHAGE PO SCH ×2 (08:30→17:00)
[2018-10-01] MEDS: HumaLOG SUB-Q SCH ×5 (08:30→22:40)
[2018-10-01] MEDS: ALDACTONE PO SCH (09:54)
[2018-10-01] MEDS: ATIVAN PO SCH (09:55)
[2018-10-01] MEDS: COZAAR PO SCH (09:55)
[2018-10-01] MEDS: COREG PO SCH ×2 (09:55→22:39)
[2018-10-01] MEDS: CLARITIN PO SCH (09:55)
[2018-10-01] MEDS: DOLOPHINE PO SCH ×2 (09:56→22:46)
[2018-10-01] MEDS: ECOTRIN PO SCH (09:56)
[2018-10-01] MEDS: FLONASE NS SCH ×2 (09:57→22:40)
[2018-10-01] MEDS: MUCINEX ER PO SCH ×2 (09:57→22:39)
[2018-10-01] MEDS: PEPCID PO SCH (09:58)
[2018-10-01] MEDS: WELLBUTRIN SR PO SCH (09:58)
[2018-10-01] MEDS: ROCEPHIN/NS 2 GM/100 ML 2 GM/100 ML BAG IV SCH (10:08)
--- NOTE | 2018-10-01 10:47 | Progress Note ---
Assessment and Plan ARF-MV episode A/C hypercapnic respiratory failure. s/p Systolic heart failure exacerbation. CXR with improvement on CHF findings COPD, with exacerbation.Appears controlled. Emphysema by CTA r/o OHS vs COPD Bipolar disorder Former smoker Recommendations Wean off HFO. Uses O2 4 LPM at home OPD PFT for COPD vs OHS triage Avoid sedatives,narcotics Can re-start in Symbicort at discharge time Discussed with the patient in detail. All questions answered. Subjective Date of service: 10/01/18 Principal diagnosis: systolic heart failure,COPD exac, acute respiratory failure Interval history: No events overnight,but pt reports to be upset with last night nurse. Wants to leave.Denies SOB Objective Vital Signs - 12hr 09/30/18 09/30/18 10/01/18 23:00 23:48 00:00 Temperature 98.7 F Pulse Rate 102 H Pulse Rate [ 88 From Monitor] Respiratory 15 Rate Blood Pressure O2 Sat by Pulse 94 Oximetry 10/01/18 10/01/18 10/01/18 00:45 03:00 03:20 Temperature 98.2 F Pulse Rate 94 H 94 H Pulse Rate [ From Monitor] Respiratory 14 Rate Blood Pressure 185/101 O2 Sat by Pulse 93 Oximetry 10/01/18 10/01/18 10/01/18 04:00 06:18 08:00 Temperature 98.6 F Pulse Rate 88 Pulse Rate [ 87 From Monitor] Respiratory 20 Rate Blood Pressure 158/85 O2 Sat by Pulse 95 Oximetry 10/01/18 10/01/18 09:54 09:55 Temperature Pulse Rate 105 H 105 H Pulse Rate [ From Monitor] Respiratory Rate Blood Pressure 161/86 161/86 O2 Sat by Pulse Oximetry Constitutional: no acute distress, alert, other (morbidly obese) Eyes: non-icteric ENT: oropharynx moist Neck: supple Effort: normal Ascultation: Bilateral: clear, diminished breath sounds Percussion: Bilateral: not dull Tactile fremitus: Bilateral: normal Cardiovascular: regular rate and rhythm Gastrointestinal: normoactive bowel sounds, absent bowel sounds, soft Extremities: no cyanosis, edema Neurologic: normal mental status, non-focal exam, pupils equal and round, CN II- XII normal Psychiatric: other (upset) CBC and BMP: 09/26/18 05:23 09/26/18 05:23 ABG, PT/INR, D-dimer: ABG POC ABG pH 7.375 (7.35-7.45) 09/24/18 17:11 POC ABG pO2 61 (80-105) L 09/24/18 17:11 POC ABG HCO3 44.4 (22-26 mml/L) 09/24/18 17:11 POC ABG Total CO2 47 (23-27mmol/L) 09/24/18 17:11 POC ABG O2 Sat 89 09/24/18 17:11 PT/INR, D-dimer PT 13.5 Sec. (12.2-14.9) 09/24/18 11:28 INR 0.97 (0.87-1.13) 09/24/18 11:28 Abnormal lab findings: Abnormal Labs 09/24/18 09/24/18 09/24/18 11:28 11:28 12:46 WBC RDW 17.0 H Plt Count Seg Neuts % (Manual) 77.0 H Lymphocytes % (Manual) Seg Neutrophils # Man POC ABG pH 7.256 L POC ABG pO2 161 H Potassium 5.9 H Chloride 92.3 L Carbon Dioxide 31 H BUN Glucose 280 H POC Glucose Calcium Troponin T 0.069 H NT-Pro-B Natriuret Pep 2191 H Albumin 3.5 L HDL Cholesterol 93 H 09/24/18 09/24/18 09/24/18 14:15 14:46 16:55 WBC RDW Plt Count Seg Neuts % (Manual) Lymphocytes % (Manual) Seg Neutrophils # Man POC ABG pH 7.336 L POC ABG pO2 68 L Potassium Chloride Carbon Dioxide BUN Glucose POC Glucose Calcium Troponin T 0.067 H 0.110 H* D NT-Pro-B Natriuret Pep Albumin HDL Cholesterol 09/24/18 09/24/18 09/25/18 17:11 23:51 07:27 WBC RDW Plt Count Seg Neuts % (Manual) Lymphocytes % (Manual) Seg Neutrophils # Man POC ABG pH POC ABG pO2 61 L Potassium Chloride Carbon Dioxide BUN Glucose POC Glucose 160 H 231 H Calcium Troponin T NT-Pro-B Natriuret Pep Albumin HDL Cholesterol 09/25/18 09/25/18 09/25/18 11:48 15:47 16:24 WBC RDW Plt Count Seg Neuts % (Manual) Lymphocytes % (Manual) Seg Neutrophils # Man POC ABG pH POC ABG pO2 Potassium Chloride 92.2 L Carbon Dioxide 40 H D BUN 19 H Glucose 183 H POC Glucose 307 H 272 H Calcium 8.3 L Troponin T NT-Pro-B Natriuret Pep Albumin HDL Cholesterol 09/25/18 09/26/18 09/26/18 20:13 05:23 05:23 WBC 17.3 H RDW 16.5 H Plt Count 129 L Seg Neuts % (Manual) 87.0 H Lymphocytes % (Manual) 8.0 L Seg Neutrophils # Man 15.1 H POC ABG pH POC ABG pO2 Potassium 5.1 H Chloride 90.2 L Carbon Dioxide 40 H BUN 24 H Glucose 288 H POC Glucose 144 H Calcium 8.0 L Troponin T NT-Pro-B Natriuret Pep Albumin HDL Cholesterol 09/26/18 09/26/18 09/26/18 08:47 12:21 16:35 WBC RDW Plt Count Seg Neuts % (Manual) Lymphocytes % (Manual) Seg Neutrophils # Man POC ABG pH POC ABG pO2 Potassium Chloride Carbon Dioxide BUN Glucose POC Glucose 326 H 304 H 266 H Calcium Troponin T NT-Pro-B Natriuret Pep Albumin HDL Cholesterol 09/26/18 09/27/18 09/27/18 21:29 08:25 11:42 WBC RDW Plt Count Seg Neuts % (Manual) Lymphocytes % (Manual) Seg Neutrophils # Man POC ABG pH POC ABG pO2 Potassium Chloride Carbon Dioxide BUN Glucose POC Glucose 350 H 284 H 317 H Calcium Troponin T NT-Pro-B Natriuret Pep Albumin HDL Cholesterol 09/27/18 09/27/18 09/28/18 16:05 21:21 07:18 WBC RDW Plt Count Seg Neuts % (Manual) Lymphocytes % (Manual) Seg Neutrophils # Man POC ABG pH POC ABG pO2 Potassium Chloride Carbon Dioxide BUN Glucose POC Glucose 338 H 390 H 313 H Calcium Troponin T NT-Pro-B Natriuret Pep Albumin HDL Cholesterol 09/28/18 09/28/18 09/28/18 11:24 16:02 22:05 WBC RDW Plt Count Seg Neuts % (Manual) Lymphocytes % (Manual) Seg Neutrophils # Man POC ABG pH POC ABG pO2 Potassium Chloride Carbon Dioxide BUN Glucose POC Glucose 322 H 251 H 237 H Calcium Troponin T NT-Pro-B Natriuret Pep Albumin HDL Cholesterol 09/29/18 09/29/18 09/29/18 08:42 11:47 16:32 WBC RDW Plt Count Seg Neuts % (Manual) Lymphocytes % (Manual) Seg Neutrophils # Man POC ABG pH POC ABG pO2 Potassium Chloride Carbon Dioxide BUN Glucose POC Glucose 406 H 393 H 213 H Calcium Troponin T NT-Pro-B Natriuret Pep Albumin HDL Cholesterol 09/29/18 09/30/18 09/30/18 21:55 07:46 07:49 WBC RDW Plt Count Seg Neuts % (Manual) Lymphocytes % (Manual) Seg Neutrophils # Man POC ABG pH POC ABG pO2 Potassium Chloride Carbon Dioxide BUN Glucose POC Glucose 318 H > 500 H 313 H Calcium Troponin T NT-Pro-B Natriuret Pep Albumin HDL Cholesterol 09/30/18 09/30/18 09/30/18 11:33 16:25 21:16 WBC RDW Plt Count Seg Neuts % (Manual) Lymphocytes % (Manual) Seg Neutrophils # Man POC ABG pH POC ABG pO2 Potassium Chloride Carbon Dioxide BUN Glucose POC Glucose 239 H 246 H 336 H Calcium Troponin T NT-Pro-B Natriuret Pep Albumin HDL Cholesterol 10/01/18 08:00 WBC RDW Plt Count Seg Neuts % (Manual) Lymphocytes % (Manual) Seg Neutrophils # Man POC ABG pH POC ABG pO2 Potassium Chloride Carbon Dioxide BUN Glucose POC Glucose 281 H Calcium Troponin T NT-Pro-B Natriuret Pep Albumin HDL Cholesterol Chest x-ray: report reviewed, image reviewed
--- NOTE | 2018-10-01 11:14 | Progress Note ---
Assessment and Plan Assessment and plan: 48-year-old -[place] female with medical history significant for morbid obesity, chronic systolic CHF, COPD, diabetes, sleep apnea presented to the emergency department from [facility] with complaints of shortness of breath. Patient was placed on BiPAP and admitted to MICU. Patient was intubated previously. Patient's also complaining of cough which is productive with white sputum but denied fever, chills. Acute respiratory failure with Hypercarbia and hypoxia on high flow during day and NIV at night COPD exacerbation - Patient is on IV Solu-Medrol, antibiotic, DuoNeb's and nebulizer treatment Acute exacerbation of Chronic systolic heart failure, elevated troponin - Cardiology consulted - Recommend medical management, cont lasix Diabetes mellitus - Sliding-scale insulin, ADA diet, Accu-Chek and adjust insulin as needed HLD - Continue statin DVT prophylaxis - On Lovenox Disposition; continue IMCU care History Interval history: The patient continued to desaturate when eating, wheezing and shortness of breath reported by patient She denies chest pain She admits to cough productive of thick yellow sputum Denies fevers, denies vomiting Hospitalist Physical - Physical exam Narrative exam: General.: Mild to moderate distress due to shortness of breath HEENT: Moist mucous membranes, extraocular muscles intact, no lymphadenopathy Neck: supple Cardiac: S1-S2 heard Lungs: Bilateral wheezing, decreased air entry Abdomen: soft , nontender, nondistended, bowel sounds positive Extremities: no edema clubbing or cyanosis Skin: no rash or lesions Neurologic: no gross focal deficits, lacks insight, poor cognition; apparently patient had brain surgery in the past and has not been the same since Psych: calm, and cooperative - Constitutional Vitals: Temp Pulse Resp BP Pulse Ox 98.6 F 105 H 20 161/86 95 10/01/18 08:00 10/01/18 09:55 10/01/18 04:00 10/01/18 09:55 10/01/18 04:00 General appearance: Present: mild distress Results - Labs CBC & Chem 7: 09/26/18 05:23 09/26/18 05:23 Labs: Laboratory Last Values WBC 17.3 K/mm3 (4.5-11.0) H 09/26/18 05:23 RBC 3.98 M/mm3 (3.65-5.03) 09/26/18 05:23 Hgb 12.1 gm/dl (10.1-14.3) 09/26/18 05:23 Hct 38.1 % (30.3-42.9) 09/26/18 05:23 MCV 96 fl (79-97) 09/26/18 05:23 MCH 30 pg (28-32) 09/26/18 05:23 MCHC 32 % (30-34) 09/26/18 05:23 RDW 16.5 % (13.2-15.2) H 09/26/18 05:23 Plt Count 129 K/mm3 (140-440) L 09/26/18 05:23 Lymph % (Auto) Proration Clerk 09/26/18 05:23 [place] % (Auto) Proration Clerk 09/26/18 05:23 Eos % (Auto) Proration Clerk 09/26/18 05:23 Baso % (Auto) Proration Clerk 09/26/18 05:23 Lymph # Proration Clerk 09/26/18 05:23 [place] # Proration Clerk 09/26/18 05:23 Eos # Proration Clerk 09/26/18 05:23 Baso # Proration Clerk 09/26/18 05:23 Add Manual Diff Complete 09/26/18 05:23 Total Counted 100 09/26/18 05:23 Seg Neutrophils % Proration Clerk 09/26/18 05:23 Seg Neuts % (Manual) 87.0 % (40.0-70.0) H 09/26/18 05:23 1.0 % 09/26/18 05:23 8.0 % (13.4-35.0) L 09/26/18 05:23 Reactive Lymphs % (Man) 0 % 09/26/18 05:23 4.0 % (0.0-7.3) 09/26/18 05:23 0 % (0.0-4.3) 09/26/18 05:23 0 % (0.0-1.8) 09/26/18 05:23 0 % 09/26/18 05:23 0 % 09/26/18 05:23 0 % 09/26/18 05:23 0 % 09/26/18 05:23 Nucleated RBC % Not Reportable 09/26/18 05:23 Seg Neutrophils # Proration Clerk 09/26/18 05:23 Seg Neutrophils # Man 15.1 K/mm3 (1.8-7.7) H 09/26/18 05:23 Band Neutrophils # 0.2 K/mm3 09/26/18 05:23 1.4 K/mm3 (1.2-5.4) 09/26/18 05:23 Abs React Lymphs (Man) 0.0 K/mm3 09/26/18 05:23 0.7 K/mm3 (0.0-0.8) 09/26/18 05:23 0.0 K/mm3 (0.0-0.4) 09/26/18 05:23 0.0 K/mm3 (0.0-0.1) 09/26/18 05:23 0.0 K/mm3 09/26/18 05:23 0.0 K/mm3 09/26/18 05:23 0.0 K/mm3 09/26/18 05:23 Blast Cells # 0.0 K/mm3 09/26/18 05:23 WBC Morphology Not Reportable 09/26/18 05:23 Hypersegmented Neuts Not Reportable 09/26/18 05:23 Hyposegmented Neuts Not Reportable 09/26/18 05:23 Hypogranular Neuts Not Reportable 09/26/18 05:23 Not Reportable 09/26/18 05:23 Not Reportable 09/26/18 05:23 Not Reportable 09/26/18 05:23 Not Reportable 09/26/18 05:23 Not Reportable 09/26/18 05:23 Not Reportable 09/26/18 05:23 Consistent w auto 09/26/18 05:23 Not Reportable 09/26/18 05:23 Plt Clumps, EDTA Not Reportable 09/26/18 05:23 Not Reportable 09/26/18 05:23 Not Reportable 09/26/18 05:23 Not Reportable 09/26/18 05:23 Plt Morphology Comment Not Reportable 09/26/18 05:23 RBC Morphology Not Reportable 09/26/18 05:23 Dimorphic RBCs Not Reportable 09/26/18 05:23 Not Reportable 09/26/18 05:23 Not Reportable 09/26/18 05:23 1+ 09/26/18 05:23 1+ 09/26/18 05:23 Not Reportable 09/26/18 05:23 Not Reportable 09/26/18 05:23 Not Reportable 09/26/18 05:23 Not Reportable 09/26/18 05:23 Not Reportable 09/26/18 05:23 Not Reportable 09/26/18 05:23 Not Reportable 09/26/18 05:23 Not Reportable 09/26/18 05:23 Not Reportable 09/26/18 05:23 Not Reportable 09/26/18 05:23 Not Reportable 09/26/18 05:23 Not Reportable 09/26/18 05:23 Not Reportable 09/26/18 05:23 Not Reportable 09/26/18 05:23 Not Reportable 09/26/18 05:23 Acanthocytes (Spur) Not Reportable 09/26/18 05:23 Rouleaux Not Reportable 09/26/18 05:23 Not Reportable 09/26/18 05:23 Not Reportable 09/26/18 05:23 Not Reportable 09/26/18 05:23 Not Reportable 09/26/18 05:23 Hem Pathologist Commnt No 09/26/18 05:23 PT 13.5 Sec. (12.2-14.9) 09/24/18 11:28 INR 0.97 (0.87-1.13) 09/24/18 11:28 APTT 25.8 Sec. (24.2-36.6) 09/24/18 11:28 POC ABG pH 7.375 (7.35-7.45) 09/24/18 17:11 POC ABG pO2 61 (80-105) L 09/24/18 17:11 POC ABG HCO3 44.4 (22-26 mml/L) 09/24/18 17:11 POC ABG Total CO2 47 (23-27mmol/L) 09/24/18 17:11 POC ABG O2 Sat 89 09/24/18 17:11 POC ABG Base Excess 19 ((-2) - (+3)mmol/L) 09/24/18 17:11 50 % 09/24/18 17:11 Sodium 140 mmol/L (137-145) 09/26/18 05:23 Potassium 5.1 mmol/L (3.6-5.0) H 09/26/18 05:23 Chloride 90.2 mmol/L (98-107) L 09/26/18 05:23 Carbon Dioxide 40 mmol/L (22-30) H 09/26/18 05:23 15 mmol/L 09/26/18 05:23 BUN 24 mg/dL (7-17) H 09/26/18 05:23 0.9 mg/dL (0.7-1.2) 09/26/18 05:23 Estimated GFR > 60 ml/min 09/26/18 05:23 27 % 09/26/18 05:23 Glucose 288 mg/dL (65-100) H 09/26/18 05:23 POC Glucose 281 (70-105) H 10/01/18 08:00 Calcium 8.0 mg/dL (8.4-10.2) L 09/26/18 05:23 0.20 mg/dL (0.1-1.2) 09/24/18 11:28 AST 28 units/L (5-40) 09/24/18 11:28 ALT 21 units/L (7-56) 09/24/18 11:28 64 units/L (35-129) 09/24/18 11:28 0.110 ng/mL (0.00-0.029) H* D 09/24/18 16:55 NT-Pro-B Natriuret Pep 2191 pg/mL (0-450) H 09/24/18 11:28 6.6 g/dL (6.3-8.2) 09/24/18 11:28 3.5 g/dL (3.9-5) L 09/24/18 11:28 1.1 % 09/24/18 11:28 Triglycerides 87 mg/dL (2-149) 09/24/18 11:28 Cholesterol 186 mg/dL (50-199) 09/24/18 11:28 73 mg/dL (50-130) 09/24/18 11:28 93 mg/dL (40-59) H 09/24/18 11:28 2.00 % 09/24/18 11:28 Active Medications - Current Medications Current Medications: Generic Name Dose Route Start Last Admin Trade Name Freq PRN Reason Stop Dose Admin Acetaminophen 650 mg 09/24/18 22:38 09/30/18 16:35 Tylenol PO 650 mg Q12H PRN Administration Non Cardiac Pain or Temp>100.5 Albuterol 2.5 mg 09/24/18 22:29 Proventil IH Q4HRT PRN Shortness Of Breath Albuterol 2.5 mg 09/28/18 12:00 09/30/18 20:35 Proventil IH 2.5 mg QIDRT JOE Administration Aspirin 325 mg 09/25/18 10:00 10/01/18 09:56 Ecotrin PO 325 mg DAILY JOE Administration Atorvastatin Calcium 40 mg 09/25/18 22:00 09/30/18 22:19 Lipitor PO 40 mg QHS JOE Administration Budesonide 0.5 mg 09/24/18 22:45 09/30/18 20:35 Pulmicort IH 0.5 mg Q12HRT JOE Administration Bupropion HCl 100 mg 09/25/18 10:00 10/01/18 09:58 Wellbutrin Sr PO 100 mg DAILY JOE Administration Carbamazepine 200 mg 09/25/18 10:00 10/01/18 09:58 Tegretol PO 200 mg DAILY JOE Administration Carvedilol 6.25 mg 09/24/18 23:00 10/01/18 09:55 Coreg PO 6.25 mg BID JOE Administration Enoxaparin Sodium 40 mg 09/25/18 22:00 09/30/18 22:15 Lovenox SUB-Q 40 mg QDAY@2200 JOE Administration Famotidine 20 mg 09/25/18 10:00 10/01/18 09:58 Pepcid PO 20 mg DAILY JOE Administration Fluticasone Propionate 50 mcg 09/25/18 10:00 10/01/18 09:57 Flonase NS 50 mcg BID JOE Administration Guaifenesin 600 mg 09/29/18 10:30 10/01/18 09:57 Mucinex Er PO 600 mg BID JOE Administration Hydralazine HCl 37.5 mg 09/24/18 23:00 10/01/18 06:19 Apresoline PO 37.5 mg Q8HR JOE Administration Ceftriaxone Sodium 2 gm in 100 mls @ 200 mls/hr 09/25/18 10:00 10/01/18 10:08 Rocephin/Ns 2 Gm/100 Ml IV 10/01/18 23:59 200 mls/hr Q24HR JOE Administration Protocol Insulin Glargine 30 units 09/30/18 10:38 09/30/18 22:15 Lantus SUB-Q 30 units QHS JOE Administration Insulin Human Lispro 0 unit 09/25/18 07:30 10/01/18 08:30 Humalog SUB-Q 6 unit ACHS JOE Administration Protocol Isosorbide Dinitrate 20 mg 09/24/18 23:00 10/01/18 06:18 Isordil Titradose PO 20 mg Q8HR JOE Administration Loratadine 10 mg 09/25/18 10:00 10/01/18 09:55 Claritin PO 10 mg DAILY JOE Administration Lorazepam 0.5 mg 09/25/18 10:00 10/01/18 09:55 Ativan PO 0.5 mg DAILY JOE Administration Lorazepam 1 mg 09/30/18 20:39 09/30/18 22:12 Ativan IV 1 mg Q2H PRN Administration Agitation Losartan Potassium 50 mg 09/25/18 10:00 10/01/18 09:55 Cozaar PO 50 mg QDAY JOE Administration Metformin HCl 1,000 mg 09/25/18 08:00 10/01/18 08:30 Glucophage PO 1,000 mg BIDDIAB JOE Administration Methadone HCl 5 mg 09/25/18 10:00 10/01/18 09:56 Dolophine PO 5 mg BID JOE Administration Methylprednisolone Sodium Succinate 60 mg 09/25/18 16:13 10/01/18 06:19 Solu-Medrol IV 60 mg Q8HR JOE Administration Montelukast Sodium 10 mg 09/25/18 22:00 09/30/18 22:17 Singulair PO 10 mg QHS JOE Administration Polyethylene Glycol 17 gm 09/24/18 22:38 09/28/18 10:37 Miralax 3350 PO 17 gm QDAY PRN Administration Constipation Quetiapine Fumarate 300 mg 09/24/18 23:00 10/01/18 09:58 Seroquel PO 300 mg Q12HR JOE Administration Spironolactone 25 mg 09/25/18 10:00 10/01/18 09:54 Aldactone PO 25 mg QDAY JOE Administration Trazodone HCl 50 mg 09/25/18 22:00 09/30/18 22:17 Desyrel PO 50 mg QHS JOE Administration Zolpidem Tartrate 5 mg 09/24/18 22:38 09/30/18 22:18 Ambien PO 5 mg QHS PRN Administration Insomnia
[2018-10-01] MEDS: PULMICORT IH SCH ×2 (11:29→20:17)
[2018-10-01] MEDS: PROVENTIL IH SCH ×4 (11:29→20:17)
[2018-10-01] MEDS: LANTUS SUB-Q SCH (22:37)
[2018-10-01] MEDS: LOVENOX SUB-Q SCH (22:37)
[2018-10-01] MEDS: DESYREL PO SCH (22:37)
[2018-10-01] MEDS: SINGULAIR PO SCH (22:47)
[2018-10-02] MEDS: AMBIEN PO PRN ×2 (01:49→23:52)
[2018-10-02] MEDS: SOLU-Medrol IV SCH ×3 (05:35→21:28)
[2018-10-02] MEDS: APRESOLINE PO SCH ×3 (05:35→21:25)
[2018-10-02] MEDS: ISORDIL TITRADOSE PO SCH ×3 (05:37→21:29)
[2018-10-02] MEDS: PULMICORT IH SCH ×2 (08:11→22:05)
[2018-10-02] MEDS: PROVENTIL IH SCH ×4 (08:11→22:05)
[2018-10-02] MEDS: MUCINEX ER PO SCH ×2 (09:48→21:30)
[2018-10-02] MEDS: WELLBUTRIN SR PO SCH (09:48)
[2018-10-02] MEDS: ECOTRIN PO SCH (09:49)
[2018-10-02] MEDS: COZAAR PO SCH (09:49)
[2018-10-02] MEDS: COREG PO SCH ×2 (09:51→21:27)
[2018-10-02] MEDS: GLUCOPHAGE PO SCH ×2 (09:51→18:01)
[2018-10-02] MEDS: PEPCID PO SCH (09:52)
[2018-10-02] MEDS: ALDACTONE PO SCH (09:52)
[2018-10-02] MEDS: ATIVAN PO SCH (09:52)
[2018-10-02] MEDS: DOLOPHINE PO SCH ×2 (09:53→21:30)
[2018-10-02] MEDS: FLONASE NS SCH ×2 (09:54→21:24)
[2018-10-02] MEDS: LANTUS SUB-Q SCH ×2 (09:57→22:04)
[2018-10-02] MEDS: HumaLOG SUB-Q SCH ×7 (09:58→22:05)
--- NOTE | 2018-10-02 10:54 | Progress Note ---
Assessment and Plan ARF-MV episode A/C hypercapnic respiratory failure. Refusing BPAP at night. Still on HFO not weaned s/p Systolic heart failure exacerbation. CXR with improvement on CHF findings COPD, with exacerbation.No wheezing r/o OHS vs COPD Bipolar disorder Former smoker Recommendations Wean off HFO. Uses O2 4 LPM at home BPAP at night, pending weaning and eventual DH Avoid sedatives,narcotics Albuterol nebs, Symbicort at discharge time Discussed with the patient in detail. All questions answered. Subjective Date of service: 10/02/18 Principal diagnosis: systolic heart failure,COPD exac, acute respiratory failure Interval history: No events overnight,but pt reports to be upset with last night nurse. Wants to leave.Denies SOB Objective Vital Signs - 12hr 10/02/18 10/02/18 10/02/18 00:00 01:00 04:00 Temperature 98.7 F 98.3 F Pulse Rate 99 H Pulse Rate [ Anterior Bilateral Throughout] Pulse Rate [ 95 H 91 H From Monitor] Respiratory 18 27 H 11 L Rate Respiratory Rate [Anterior Bilateral Throughout] Blood Pressure 158/93 O2 Sat by Pulse 95 97 97 Oximetry 10/02/18 10/02/18 10/02/18 05:35 05:37 08:00 Temperature Pulse Rate 91 H 90 Pulse Rate [ 102 H Anterior Bilateral Throughout] Pulse Rate [ From Monitor] Respiratory Rate Respiratory 18 Rate [Anterior Bilateral Throughout] Blood Pressure 161/95 161/95 O2 Sat by Pulse Oximetry 10/02/18 10/02/18 10/02/18 08:14 09:49 09:51 Temperature Pulse Rate 109 H 109 H Pulse Rate [ Anterior Bilateral Throughout] Pulse Rate [ From Monitor] Respiratory Rate Respiratory Rate [Anterior Bilateral Throughout] Blood Pressure 147/102 147/102 O2 Sat by Pulse 96 Oximetry 10/02/18 09:52 Temperature Pulse Rate 109 H Pulse Rate [ Anterior Bilateral Throughout] Pulse Rate [ From Monitor] Respiratory Rate Respiratory Rate [Anterior Bilateral Throughout] Blood Pressure 147/102 O2 Sat by Pulse Oximetry Constitutional: no acute distress, alert, other (morbidly obese) Eyes: non-icteric ENT: oropharynx moist Neck: supple Effort: normal Ascultation: Bilateral: clear, diminished breath sounds, wheezes (mild), rales (bibasilar) Percussion: Bilateral: not dull Tactile fremitus: Bilateral: normal Cardiovascular: regular rate and rhythm Gastrointestinal: normoactive bowel sounds, absent bowel sounds, soft Extremities: no cyanosis, edema Neurologic: normal mental status, non-focal exam, pupils equal and round, CN II- XII normal Psychiatric: other (upset) CBC and BMP: 09/26/18 05:23 09/26/18 05:23 ABG, PT/INR, D-dimer: ABG POC ABG pH 7.375 (7.35-7.45) 09/24/18 17:11 POC ABG pO2 61 (80-105) L 09/24/18 17:11 POC ABG HCO3 44.4 (22-26 mml/L) 09/24/18 17:11 POC ABG Total CO2 47 (23-27mmol/L) 09/24/18 17:11 POC ABG O2 Sat 89 09/24/18 17:11 PT/INR, D-dimer PT 13.5 Sec. (12.2-14.9) 09/24/18 11:28 INR 0.97 (0.87-1.13) 09/24/18 11:28 Abnormal lab findings: Abnormal Labs 09/24/18 09/24/18 09/24/18 11:28 11:28 12:46 WBC RDW 17.0 H Plt Count Seg Neuts % (Manual) 77.0 H Lymphocytes % (Manual) Seg Neutrophils # Man POC ABG pH 7.256 L POC ABG pO2 161 H Potassium 5.9 H Chloride 92.3 L Carbon Dioxide 31 H BUN Glucose 280 H POC Glucose Calcium Troponin T 0.069 H NT-Pro-B Natriuret Pep 2191 H Albumin 3.5 L HDL Cholesterol 93 H 09/24/18 09/24/18 09/24/18 14:15 14:46 16:55 WBC RDW Plt Count Seg Neuts % (Manual) Lymphocytes % (Manual) Seg Neutrophils # Man POC ABG pH 7.336 L POC ABG pO2 68 L Potassium Chloride Carbon Dioxide BUN Glucose POC Glucose Calcium Troponin T 0.067 H 0.110 H* D NT-Pro-B Natriuret Pep Albumin HDL Cholesterol 09/24/18 09/24/18 09/25/18 17:11 23:51 07:27 WBC RDW Plt Count Seg Neuts % (Manual) Lymphocytes % (Manual) Seg Neutrophils # Man POC ABG pH POC ABG pO2 61 L Potassium Chloride Carbon Dioxide BUN Glucose POC Glucose 160 H 231 H Calcium Troponin T NT-Pro-B Natriuret Pep Albumin HDL Cholesterol 09/25/18 09/25/18 09/25/18 11:48 15:47 16:24 WBC RDW Plt Count Seg Neuts % (Manual) Lymphocytes % (Manual) Seg Neutrophils # Man POC ABG pH POC ABG pO2 Potassium Chloride 92.2 L Carbon Dioxide 40 H D BUN 19 H Glucose 183 H POC Glucose 307 H 272 H Calcium 8.3 L Troponin T NT-Pro-B Natriuret Pep Albumin HDL Cholesterol 09/25/18 09/26/18 09/26/18 20:13 05:23 05:23 WBC 17.3 H RDW 16.5 H Plt Count 129 L Seg Neuts % (Manual) 87.0 H Lymphocytes % (Manual) 8.0 L Seg Neutrophils # Man 15.1 H POC ABG pH POC ABG pO2 Potassium 5.1 H Chloride 90.2 L Carbon Dioxide 40 H BUN 24 H Glucose 288 H POC Glucose 144 H Calcium 8.0 L Troponin T NT-Pro-B Natriuret Pep Albumin HDL Cholesterol 09/26/18 09/26/18 09/26/18 08:47 12:21 16:35 WBC RDW Plt Count Seg Neuts % (Manual) Lymphocytes % (Manual) Seg Neutrophils # Man POC ABG pH POC ABG pO2 Potassium Chloride Carbon Dioxide BUN Glucose POC Glucose 326 H 304 H 266 H Calcium Troponin T NT-Pro-B Natriuret Pep Albumin HDL Cholesterol 09/26/18 09/27/18 09/27/18 21:29 08:25 11:42 WBC RDW Plt Count Seg Neuts % (Manual) Lymphocytes % (Manual) Seg Neutrophils # Man POC ABG pH POC ABG pO2 Potassium Chloride Carbon Dioxide BUN Glucose POC Glucose 350 H 284 H 317 H Calcium Troponin T NT-Pro-B Natriuret Pep Albumin HDL Cholesterol 09/27/18 09/27/18 09/28/18 16:05 21:21 07:18 WBC RDW Plt Count Seg Neuts % (Manual) Lymphocytes % (Manual) Seg Neutrophils # Man POC ABG pH POC ABG pO2 Potassium Chloride Carbon Dioxide BUN Glucose POC Glucose 338 H 390 H 313 H Calcium Troponin T NT-Pro-B Natriuret Pep Albumin HDL Cholesterol 09/28/18 09/28/18 09/28/18 11:24 16:02 22:05 WBC RDW Plt Count Seg Neuts % (Manual) Lymphocytes % (Manual) Seg Neutrophils # Man POC ABG pH POC ABG pO2 Potassium Chloride Carbon Dioxide BUN Glucose POC Glucose 322 H 251 H 237 H Calcium Troponin T NT-Pro-B Natriuret Pep Albumin HDL Cholesterol 09/29/18 09/29/18 09/29/18 08:42 11:47 16:32 WBC RDW Plt Count Seg Neuts % (Manual) Lymphocytes % (Manual) Seg Neutrophils # Man POC ABG pH POC ABG pO2 Potassium Chloride Carbon Dioxide BUN Glucose POC Glucose 406 H 393 H 213 H Calcium Troponin T NT-Pro-B Natriuret Pep Albumin HDL Cholesterol 09/29/18 09/30/18 09/30/18 21:55 07:46 07:49 WBC RDW Plt Count Seg Neuts % (Manual) Lymphocytes % (Manual) Seg Neutrophils # Man POC ABG pH POC ABG pO2 Potassium Chloride Carbon Dioxide BUN Glucose POC Glucose 318 H > 500 H 313 H Calcium Troponin T NT-Pro-B Natriuret Pep Albumin HDL Cholesterol 09/30/18 09/30/18 09/30/18 11:33 16:25 21:16 WBC RDW Plt Count Seg Neuts % (Manual) Lymphocytes % (Manual) Seg Neutrophils # Man POC ABG pH POC ABG pO2 Potassium Chloride Carbon Dioxide BUN Glucose POC Glucose 239 H 246 H 336 H Calcium Troponin T NT-Pro-B Natriuret Pep Albumin HDL Cholesterol 10/01/18 10/01/18 10/01/18 08:00 11:33 16:16 WBC RDW Plt Count Seg Neuts % (Manual) Lymphocytes % (Manual) Seg Neutrophils # Man POC ABG pH POC ABG pO2 Potassium Chloride Carbon Dioxide BUN Glucose POC Glucose 281 H 307 H 146 H Calcium Troponin T NT-Pro-B Natriuret Pep Albumin HDL Cholesterol 10/01/18 10/02/18 21:05 07:16 WBC RDW Plt Count Seg Neuts % (Manual) Lymphocytes % (Manual) Seg Neutrophils # Man POC ABG pH POC ABG pO2 Potassium Chloride Carbon Dioxide BUN Glucose POC Glucose 251 H 247 H Calcium Troponin T NT-Pro-B Natriuret Pep Albumin HDL Cholesterol
--- NOTE | 2018-10-02 12:13 | Progress Note ---
Assessment and Plan Assessment and plan: 48-year-old -[place] female with medical history significant for morbid obesity, chronic systolic CHF, COPD, diabetes, sleep apnea presented to the emergency department from [facility] with complaints of shortness of breath. Patient was placed on BiPAP and admitted to MICU. Patient was intubated previously. Patient's also complaining of cough which is productive with white sputum but denied fever, chills. Acute respiratory failure with Hypercarbia and hypoxia on high flow during day and NIV at night COPD exacerbation - Patient is on IV Solu-Medrol, antibiotic, DuoNeb's and nebulizer treatment Acute exacerbation of Chronic systolic heart failure, elevated troponin - Cardiology consulted - Recommend medical management, Diabetes mellitus - Sliding-scale insulin, ADA diet, Accu-Chek and adjust insulin as needed HLD - Continue statin DVT prophylaxis - On Lovenox Disposition; continue IMCU care Discussed the case management, does not have any LTAC days left with Medicare. Goal is to wean her to 10 L of oxygen or less and discharge back to SNF History Interval history: The patient continued to desaturate when eating, wheezing and shortness of breath reported by patient She denies chest pain She admits to cough productive of thick yellow sputum Denies fevers, denies vomiting Hospitalist Physical - Physical exam Narrative exam: General.: Mild to moderate distress due to shortness of breath HEENT: Moist mucous membranes, extraocular muscles intact, no lymphadenopathy Neck: supple Cardiac: S1-S2 heard Lungs: Bilateral wheezing, decreased air entry Abdomen: soft , nontender, nondistended, bowel sounds positive Extremities: no edema clubbing or cyanosis Skin: no rash or lesions Neurologic: no gross focal deficits, lacks insight, poor cognition; apparently patient had brain surgery in the past and has not been the same since Psych: calm, and cooperative - Constitutional Vitals: Temp Pulse Resp BP Pulse Ox 98.3 F 109 H 18 147/102 96 10/02/18 04:00 10/02/18 09:52 10/02/18 08:00 10/02/18 09:52 10/02/18 08:14 General appearance: Present: mild distress Results - Labs CBC & Chem 7: 09/26/18 05:23 09/26/18 05:23 Labs: Laboratory Last Values WBC 17.3 K/mm3 (4.5-11.0) H 09/26/18 05:23 RBC 3.98 M/mm3 (3.65-5.03) 09/26/18 05:23 Hgb 12.1 gm/dl (10.1-14.3) 09/26/18 05:23 Hct 38.1 % (30.3-42.9) 09/26/18 05:23 MCV 96 fl (79-97) 09/26/18 05:23 MCH 30 pg (28-32) 09/26/18 05:23 MCHC 32 % (30-34) 09/26/18 05:23 RDW 16.5 % (13.2-15.2) H 09/26/18 05:23 Plt Count 129 K/mm3 (140-440) L 09/26/18 05:23 Lymph % (Auto) Manual Lathe Operator 09/26/18 05:23 [place] % (Auto) Manual Lathe Operator 09/26/18 05:23 Eos % (Auto) Manual Lathe Operator 09/26/18 05:23 Baso % (Auto) Manual Lathe Operator 09/26/18 05:23 Lymph # Manual Lathe Operator 09/26/18 05:23 [place] # Manual Lathe Operator 09/26/18 05:23 Eos # Manual Lathe Operator 09/26/18 05:23 Baso # Manual Lathe Operator 09/26/18 05:23 Add Manual Diff Complete 09/26/18 05:23 Total Counted 100 09/26/18 05:23 Seg Neutrophils % Manual Lathe Operator 09/26/18 05:23 Seg Neuts % (Manual) 87.0 % (40.0-70.0) H 09/26/18 05:23 1.0 % 09/26/18 05:23 8.0 % (13.4-35.0) L 09/26/18 05:23 Reactive Lymphs % (Man) 0 % 09/26/18 05:23 4.0 % (0.0-7.3) 09/26/18 05:23 0 % (0.0-4.3) 09/26/18 05:23 0 % (0.0-1.8) 09/26/18 05:23 0 % 09/26/18 05:23 0 % 09/26/18 05:23 0 % 09/26/18 05:23 0 % 09/26/18 05:23 Nucleated RBC % Not Reportable 09/26/18 05:23 Seg Neutrophils # Manual Lathe Operator 09/26/18 05:23 Seg Neutrophils # Man 15.1 K/mm3 (1.8-7.7) H 09/26/18 05:23 Band Neutrophils # 0.2 K/mm3 09/26/18 05:23 1.4 K/mm3 (1.2-5.4) 09/26/18 05:23 Abs React Lymphs (Man) 0.0 K/mm3 09/26/18 05:23 0.7 K/mm3 (0.0-0.8) 09/26/18 05:23 0.0 K/mm3 (0.0-0.4) 09/26/18 05:23 0.0 K/mm3 (0.0-0.1) 09/26/18 05:23 0.0 K/mm3 09/26/18 05:23 0.0 K/mm3 09/26/18 05:23 0.0 K/mm3 09/26/18 05:23 Blast Cells # 0.0 K/mm3 09/26/18 05:23 WBC Morphology Not Reportable 09/26/18 05:23 Hypersegmented Neuts Not Reportable 09/26/18 05:23 Hyposegmented Neuts Not Reportable 09/26/18 05:23 Hypogranular Neuts Not Reportable 09/26/18 05:23 Not Reportable 09/26/18 05:23 Not Reportable 09/26/18 05:23 Not Reportable 09/26/18 05:23 Not Reportable 09/26/18 05:23 Not Reportable 09/26/18 05:23 Not Reportable 09/26/18 05:23 Consistent w auto 09/26/18 05:23 Not Reportable 09/26/18 05:23 Plt Clumps, EDTA Not Reportable 09/26/18 05:23 Not Reportable 09/26/18 05:23 Not Reportable 09/26/18 05:23 Not Reportable 09/26/18 05:23 Plt Morphology Comment Not Reportable 09/26/18 05:23 RBC Morphology Not Reportable 09/26/18 05:23 Dimorphic RBCs Not Reportable 09/26/18 05:23 Not Reportable 09/26/18 05:23 Not Reportable 09/26/18 05:23 1+ 09/26/18 05:23 1+ 09/26/18 05:23 Not Reportable 09/26/18 05:23 Not Reportable 09/26/18 05:23 Not Reportable 09/26/18 05:23 Not Reportable 09/26/18 05:23 Not Reportable 09/26/18 05:23 Not Reportable 09/26/18 05:23 Not Reportable 09/26/18 05:23 Not Reportable 09/26/18 05:23 Not Reportable 09/26/18 05:23 Not Reportable 09/26/18 05:23 Not Reportable 09/26/18 05:23 Not Reportable 09/26/18 05:23 Not Reportable 09/26/18 05:23 Not Reportable 09/26/18 05:23 Not Reportable 09/26/18 05:23 Acanthocytes (Spur) Not Reportable 09/26/18 05:23 Rouleaux Not Reportable 09/26/18 05:23 Not Reportable 09/26/18 05:23 Not Reportable 09/26/18 05:23 Not Reportable 09/26/18 05:23 Not Reportable 09/26/18 05:23 Hem Pathologist Commnt No 09/26/18 05:23 PT 13.5 Sec. (12.2-14.9) 09/24/18 11:28 INR 0.97 (0.87-1.13) 09/24/18 11:28 APTT 25.8 Sec. (24.2-36.6) 09/24/18 11:28 POC ABG pH 7.375 (7.35-7.45) 09/24/18 17:11 POC ABG pO2 61 (80-105) L 09/24/18 17:11 POC ABG HCO3 44.4 (22-26 mml/L) 09/24/18 17:11 POC ABG Total CO2 47 (23-27mmol/L) 09/24/18 17:11 POC ABG O2 Sat 89 09/24/18 17:11 POC ABG Base Excess 19 ((-2) - (+3)mmol/L) 09/24/18 17:11 50 % 09/24/18 17:11 Sodium 140 mmol/L (137-145) 09/26/18 05:23 Potassium 5.1 mmol/L (3.6-5.0) H 09/26/18 05:23 Chloride 90.2 mmol/L (98-107) L 09/26/18 05:23 Carbon Dioxide 40 mmol/L (22-30) H 09/26/18 05:23 15 mmol/L 09/26/18 05:23 BUN 24 mg/dL (7-17) H 09/26/18 05:23 0.9 mg/dL (0.7-1.2) 09/26/18 05:23 Estimated GFR > 60 ml/min 09/26/18 05:23 27 % 09/26/18 05:23 Glucose 288 mg/dL (65-100) H 09/26/18 05:23 POC Glucose 261 (70-105) H 10/02/18 12:14 Calcium 8.0 mg/dL (8.4-10.2) L 09/26/18 05:23 0.20 mg/dL (0.1-1.2) 09/24/18 11:28 AST 28 units/L (5-40) 09/24/18 11:28 ALT 21 units/L (7-56) 09/24/18 11:28 64 units/L (35-129) 09/24/18 11:28 0.110 ng/mL (0.00-0.029) H* D 09/24/18 16:55 NT-Pro-B Natriuret Pep 2191 pg/mL (0-450) H 09/24/18 11:28 6.6 g/dL (6.3-8.2) 09/24/18 11:28 3.5 g/dL (3.9-5) L 09/24/18 11:28 1.1 % 09/24/18 11:28 Triglycerides 87 mg/dL (2-149) 09/24/18 11:28 Cholesterol 186 mg/dL (50-199) 09/24/18 11:28 73 mg/dL (50-130) 09/24/18 11:28 93 mg/dL (40-59) H 09/24/18 11:28 2.00 % 09/24/18 11:28 Active Medications - Current Medications Current Medications: Generic Name Dose Route Start Last Admin Trade Name Joslyn PRN Reason Stop Dose Admin Acetaminophen 650 mg 09/24/18 22:38 09/30/18 16:35 Tylenol PO 650 mg Q12H PRN Administration Non Cardiac Pain or Temp>100.5 Albuterol 2.5 mg 09/24/18 22:29 Proventil IH Q4HRT PRN Shortness Of Breath Albuterol 2.5 mg 09/28/18 12:00 10/02/18 08:11 Proventil IH 2.5 mg QIDRT JOE Administration Aspirin 325 mg 09/25/18 10:00 10/02/18 09:49 Ecotrin PO 325 mg DAILY JOE Administration Atorvastatin Calcium 40 mg 09/25/18 22:00 10/01/18 22:40 Lipitor PO 40 mg QHS JOE Administration Budesonide 0.5 mg 09/24/18 22:45 10/02/18 08:11 Pulmicort IH 0.5 mg Q12HRT JOE Administration Bupropion HCl 100 mg 09/25/18 10:00 10/02/18 09:48 Wellbutrin Sr PO 100 mg DAILY JOE Administration Carbamazepine 200 mg 09/25/18 10:00 10/02/18 09:49 Tegretol PO 200 mg DAILY JOE Administration Carvedilol 6.25 mg 09/24/18 23:00 10/02/18 09:51 Coreg PO 6.25 mg BID JOE Administration Enoxaparin Sodium 40 mg 09/25/18 22:00 10/01/18 22:37 Lovenox SUB-Q 40 mg QDAY@2200 JOE Administration Famotidine 20 mg 09/25/18 10:00 10/02/18 09:52 Pepcid PO 20 mg DAILY JOE Administration Fluticasone Propionate 50 mcg 09/25/18 10:00 10/02/18 09:54 Flonase NS 50 mcg BID JOE Administration Guaifenesin 600 mg 09/29/18 10:30 10/02/18 09:48 Mucinex Er PO 600 mg BID JOE Administration Hydralazine HCl 37.5 mg 09/24/18 23:00 10/02/18 05:35 Apresoline PO 37.5 mg Q8HR JOE Administration Insulin Glargine 25 units 10/01/18 22:00 10/02/18 09:57 Lantus SUB-Q 25 units BID JOE Administration Insulin Human Lispro 0 unit 09/25/18 07:30 10/02/18 09:58 Humalog SUB-Q 4 unit ACHS JOE Administration Protocol Insulin Human Lispro 6 unit 10/01/18 16:30 10/02/18 09:58 Humalog SUB-Q 6 unit AC JOE Administration Isosorbide Dinitrate 20 mg 09/24/18 23:00 10/02/18 05:37 Isordil Titradose PO 20 mg Q8HR JOE Administration Loratadine 10 mg 09/25/18 10:00 10/01/18 09:55 Claritin PO 10 mg DAILY JOE Administration Lorazepam 0.5 mg 09/25/18 10:00 10/02/18 09:52 Ativan PO 0.5 mg DAILY JOE Administration Lorazepam 1 mg 09/30/18 20:39 09/30/18 22:12 Ativan IV 1 mg Q2H PRN Administration Agitation Losartan Potassium 50 mg 09/25/18 10:00 10/02/18 09:49 Cozaar PO 50 mg QDAY JOE Administration Metformin HCl 1,000 mg 09/25/18 08:00 10/02/18 09:51 Glucophage PO 1,000 mg BIDDIAB JOE Administration Methadone HCl 5 mg 09/25/18 10:00 10/02/18 09:53 Dolophine PO 5 mg BID JOE Administration Methylprednisolone Sodium Succinate 60 mg 09/25/18 16:13 10/02/18 05:35 Solu-Medrol IV 60 mg Q8HR JOE Administration Montelukast Sodium 10 mg 09/25/18 22:00 10/01/18 22:47 Singulair PO 10 mg QHS JOE Administration Polyethylene Glycol 17 gm 09/24/18 22:38 09/28/18 10:37 Miralax 3350 PO 17 gm QDAY PRN Administration Constipation Quetiapine Fumarate 300 mg 09/24/18 23:00 10/02/18 09:50 Seroquel PO 300 mg Q12HR JOE Administration Spironolactone 25 mg 09/25/18 10:00 10/02/18 09:52 Aldactone PO 25 mg QDAY JOE Administration Trazodone HCl 50 mg 09/25/18 22:00 10/01/18 22:37 Desyrel PO 50 mg QHS JOE Administration Zolpidem Tartrate 5 mg 09/24/18 22:38 10/02/18 01:49 Ambien PO 5 mg QHS PRN Administration Insomnia Nutrition/Malnutrition Assess - Dietary Evaluation Nutrition/Malnutrition Findings: Nutrition Notes Start: 10/01/18 17:31 Freq: Status: Active Protocol: Document 10/01/18 17:31 RM (Rec: 10/01/18 17:31 RM [id number]) Nutrition Notes Need for Assessment generated from: LOS Initial or Follow up Brief Note Height 5 ft 7 in Weight 126.099 kg [place] Body Weight (kg) 61.36 BMI 43.5 Subjective/Other Information Screened for LOS. Recorded PO intake 94% X 4 meals. Nutrition Intervention Revisit per MD consult or patient Sign Off request:
[2018-10-02] MEDS: CLARITIN PO SCH (18:01)
[2018-10-02] MEDS: SINGULAIR PO SCH (21:26)
[2018-10-02] MEDS: LOVENOX SUB-Q SCH (21:27)
[2018-10-02] MEDS: DESYREL PO SCH (21:30)
[2018-10-02] MEDS: MIRALAX 3350 PO PRN (21:32)
[2018-10-03] MEDS: ISORDIL TITRADOSE PO SCH ×3 (06:31→22:21)
[2018-10-03] MEDS: APRESOLINE PO SCH ×3 (06:32→22:22)
[2018-10-03] MEDS: SOLU-Medrol IV SCH ×3 (06:52→22:24)
[2018-10-03] MEDS: PULMICORT IH SCH ×2 (07:27→19:33)
[2018-10-03] MEDS: PROVENTIL IH SCH ×4 (07:27→19:33)
[2018-10-03] MEDS: HumaLOG SUB-Q SCH ×7 (08:35→22:29)
[2018-10-03] MEDS: GLUCOPHAGE PO SCH ×2 (08:37→18:30)
[2018-10-03] MEDS: FLONASE NS SCH ×2 (10:07→22:26)
[2018-10-03] MEDS: ECOTRIN PO SCH (10:08)
[2018-10-03] MEDS: COZAAR PO SCH (10:08)
[2018-10-03] MEDS: ATIVAN PO SCH (10:08)
[2018-10-03] MEDS: DOLOPHINE PO SCH ×2 (10:09→22:23)
[2018-10-03] MEDS: ALDACTONE PO SCH (10:09)
[2018-10-03] MEDS: COREG PO SCH ×2 (10:09→22:23)
[2018-10-03] MEDS: CLARITIN PO SCH (10:09)
[2018-10-03] MEDS: PEPCID PO SCH (10:10)
[2018-10-03] MEDS: WELLBUTRIN SR PO SCH (10:13)
[2018-10-03] MEDS: MUCINEX ER PO SCH ×2 (10:13→22:22)
[2018-10-03] MEDS: LANTUS SUB-Q SCH ×3 (10:30→22:27)
--- NOTE | 2018-10-03 10:40 | Progress Note ---
Assessment and Plan ARF-MV episode,resolved A/C hypercapnic respiratory failure. Refusing BPAP at night prn. s/p Systolic heart failure exacerbation. CXR with improvement on CHF findings COPD, with exacerbation.No wheezing r/o OHS vs COPD Bipolar disorder Former smoker Recommendations Continue NC oxygen BPAP at night, pending weaning and eventual DH Baseline ABG check in am Albuterol nebs, Symbicort at discharge time Discussed with the patient in detail. All questions answered. Subjective Date of service: 10/03/18 Principal diagnosis: systolic heart failure,COPD exac, acute respiratory failure Interval history: No events overnight after transfer from [facility]. No SOB Objective Vital Signs - 12hr 10/03/18 10/03/18 10/03/18 00:01 00:05 05:29 Temperature 98.0 F 99.0 F Pulse Rate 97 H 96 H 82 Pulse Rate [ Anterior Bilateral Throughout] Respiratory 26 H 18 18 Rate Respiratory Rate [Anterior Bilateral Throughout] Blood Pressure 123/81 136/91 O2 Sat by Pulse 98 95 94 Oximetry 10/03/18 10/03/18 10/03/18 06:31 06:32 07:27 Temperature Pulse Rate 90 90 Pulse Rate [ 88 Anterior Bilateral Throughout] Respiratory Rate Respiratory 20 Rate [Anterior Bilateral Throughout] Blood Pressure 147/100 147/100 O2 Sat by Pulse Oximetry 10/03/18 10/03/18 07:36 07:43 Temperature Pulse Rate Pulse Rate [ 85 Anterior Bilateral Throughout] Respiratory Rate Respiratory 20 Rate [Anterior Bilateral Throughout] Blood Pressure O2 Sat by Pulse 95 Oximetry Constitutional: no acute distress, alert, other (morbidly obese) Eyes: non-icteric ENT: oropharynx moist Neck: supple Effort: normal Ascultation: Bilateral: clear, diminished breath sounds, rhonchi (occasional) Percussion: Bilateral: not dull Tactile fremitus: Bilateral: normal Cardiovascular: regular rate and rhythm Gastrointestinal: normoactive bowel sounds, absent bowel sounds, soft Extremities: no cyanosis, no edema, edema Neurologic: normal mental status, non-focal exam, pupils equal and round, CN II- XII normal Psychiatric: other (upset) CBC and BMP: 09/26/18 05:23 09/26/18 05:23 ABG, PT/INR, D-dimer: ABG POC ABG pH 7.375 (7.35-7.45) 09/24/18 17:11 POC ABG pO2 61 (80-105) L 09/24/18 17:11 POC ABG HCO3 44.4 (22-26 mml/L) 09/24/18 17:11 POC ABG Total CO2 47 (23-27mmol/L) 09/24/18 17:11 POC ABG O2 Sat 89 09/24/18 17:11 PT/INR, D-dimer PT 13.5 Sec. (12.2-14.9) 09/24/18 11:28 INR 0.97 (0.87-1.13) 09/24/18 11:28 Abnormal lab findings: Abnormal Labs 09/24/18 09/24/18 09/24/18 11:28 11:28 12:46 WBC RDW 17.0 H Plt Count Seg Neuts % (Manual) 77.0 H Lymphocytes % (Manual) Seg Neutrophils # Man POC ABG pH 7.256 L POC ABG pO2 161 H Potassium 5.9 H Chloride 92.3 L Carbon Dioxide 31 H BUN Glucose 280 H POC Glucose Calcium Troponin T 0.069 H NT-Pro-B Natriuret Pep 2191 H Albumin 3.5 L HDL Cholesterol 93 H 09/24/18 09/24/18 09/24/18 14:15 14:46 16:55 WBC RDW Plt Count Seg Neuts % (Manual) Lymphocytes % (Manual) Seg Neutrophils # Man POC ABG pH 7.336 L POC ABG pO2 68 L Potassium Chloride Carbon Dioxide BUN Glucose POC Glucose Calcium Troponin T 0.067 H 0.110 H* D NT-Pro-B Natriuret Pep Albumin HDL Cholesterol 09/24/18 09/24/18 09/25/18 17:11 23:51 07:27 WBC RDW Plt Count Seg Neuts % (Manual) Lymphocytes % (Manual) Seg Neutrophils # Man POC ABG pH POC ABG pO2 61 L Potassium Chloride Carbon Dioxide BUN Glucose POC Glucose 160 H 231 H Calcium Troponin T NT-Pro-B Natriuret Pep Albumin HDL Cholesterol 09/25/18 09/25/18 09/25/18 11:48 15:47 16:24 WBC RDW Plt Count Seg Neuts % (Manual) Lymphocytes % (Manual) Seg Neutrophils # Man POC ABG pH POC ABG pO2 Potassium Chloride 92.2 L Carbon Dioxide 40 H D BUN 19 H Glucose 183 H POC Glucose 307 H 272 H Calcium 8.3 L Troponin T NT-Pro-B Natriuret Pep Albumin HDL Cholesterol 09/25/18 09/26/18 09/26/18 20:13 05:23 05:23 WBC 17.3 H RDW 16.5 H Plt Count 129 L Seg Neuts % (Manual) 87.0 H Lymphocytes % (Manual) 8.0 L Seg Neutrophils # Man 15.1 H POC ABG pH POC ABG pO2 Potassium 5.1 H Chloride 90.2 L Carbon Dioxide 40 H BUN 24 H Glucose 288 H POC Glucose 144 H Calcium 8.0 L Troponin T NT-Pro-B Natriuret Pep Albumin HDL Cholesterol 09/26/18 09/26/18 09/26/18 08:47 12:21 16:35 WBC RDW Plt Count Seg Neuts % (Manual) Lymphocytes % (Manual) Seg Neutrophils # Man POC ABG pH POC ABG pO2 Potassium Chloride Carbon Dioxide BUN Glucose POC Glucose 326 H 304 H 266 H Calcium Troponin T NT-Pro-B Natriuret Pep Albumin HDL Cholesterol 09/26/18 09/27/18 09/27/18 21:29 08:25 11:42 WBC RDW Plt Count Seg Neuts % (Manual) Lymphocytes % (Manual) Seg Neutrophils # Man POC ABG pH POC ABG pO2 Potassium Chloride Carbon Dioxide BUN Glucose POC Glucose 350 H 284 H 317 H Calcium Troponin T NT-Pro-B Natriuret Pep Albumin HDL Cholesterol 09/27/18 09/27/18 09/28/18 16:05 21:21 07:18 WBC RDW Plt Count Seg Neuts % (Manual) Lymphocytes % (Manual) Seg Neutrophils # Man POC ABG pH POC ABG pO2 Potassium Chloride Carbon Dioxide BUN Glucose POC Glucose 338 H 390 H 313 H Calcium Troponin T NT-Pro-B Natriuret Pep Albumin HDL Cholesterol 09/28/18 09/28/18 09/28/18 11:24 16:02 22:05 WBC RDW Plt Count Seg Neuts % (Manual) Lymphocytes % (Manual) Seg Neutrophils # Man POC ABG pH POC ABG pO2 Potassium Chloride Carbon Dioxide BUN Glucose POC Glucose 322 H 251 H 237 H Calcium Troponin T NT-Pro-B Natriuret Pep Albumin HDL Cholesterol 09/29/18 09/29/18 09/29/18 08:42 11:47 16:32 WBC RDW Plt Count Seg Neuts % (Manual) Lymphocytes % (Manual) Seg Neutrophils # Man POC ABG pH POC ABG pO2 Potassium Chloride Carbon Dioxide BUN Glucose POC Glucose 406 H 393 H 213 H Calcium Troponin T NT-Pro-B Natriuret Pep Albumin HDL Cholesterol 09/29/18 09/30/18 09/30/18 21:55 07:46 07:49 WBC RDW Plt Count Seg Neuts % (Manual) Lymphocytes % (Manual) Seg Neutrophils # Man POC ABG pH POC ABG pO2 Potassium Chloride Carbon Dioxide BUN Glucose POC Glucose 318 H > 500 H 313 H Calcium Troponin T NT-Pro-B Natriuret Pep Albumin HDL Cholesterol 09/30/18 09/30/18 09/30/18 11:33 16:25 21:16 WBC RDW Plt Count Seg Neuts % (Manual) Lymphocytes % (Manual) Seg Neutrophils # Man POC ABG pH POC ABG pO2 Potassium Chloride Carbon Dioxide BUN Glucose POC Glucose 239 H 246 H 336 H Calcium Troponin T NT-Pro-B Natriuret Pep Albumin HDL Cholesterol 10/01/18 10/01/18 10/01/18 08:00 11:33 16:16 WBC RDW Plt Count Seg Neuts % (Manual) Lymphocytes % (Manual) Seg Neutrophils # Man POC ABG pH POC ABG pO2 Potassium Chloride Carbon Dioxide BUN Glucose POC Glucose 281 H 307 H 146 H Calcium Troponin T NT-Pro-B Natriuret Pep Albumin HDL Cholesterol 10/01/18 10/02/18 10/02/18 21:05 07:16 12:14 WBC RDW Plt Count Seg Neuts % (Manual) Lymphocytes % (Manual) Seg Neutrophils # Man POC ABG pH POC ABG pO2 Potassium Chloride Carbon Dioxide BUN Glucose POC Glucose 251 H 247 H 261 H Calcium Troponin T NT-Pro-B Natriuret Pep Albumin HDL Cholesterol 10/02/18 10/02/18 10/03/18 16:13 21:39 07:32 WBC RDW Plt Count Seg Neuts % (Manual) Lymphocytes % (Manual) Seg Neutrophils # Man POC ABG pH POC ABG pO2 Potassium Chloride Carbon Dioxide BUN Glucose POC Glucose 135 H 169 H 173 H Calcium Troponin T NT-Pro-B Natriuret Pep Albumin HDL Cholesterol
--- NOTE | 2018-10-03 11:02 | Progress Note ---
Assessment and Plan Assessment and plan: 48-year-old -[place] female with medical history significant for morbid obesity, chronic systolic CHF, COPD, diabetes, sleep apnea presented to the emergency department from [facility] with complaints of shortness of breath. Patient was placed on BiPAP and admitted to MICU. Patient was intubated previously. Patient's also complaining of cough which is productive with white sputum but denied fever, chills. Acute respiratory failure with Hypercarbia and hypoxia was previously on high flow during day, now on 6L NC during day and NIV at night COPD exacerbation - Patient is on IV Solu-Medrol, antibiotic, DuoNeb's and nebulizer treatment Acute exacerbation of Chronic systolic heart failure, elevated troponin - Cardiology consulted - Recommend medical management, Diabetes mellitus - Sliding-scale insulin, ADA diet, Accu-Chek and adjust insulin as needed HLD - Continue statin DVT prophylaxis - On Lovenox Disposition; continue IMCU care Discussed the case management, does not have any LTAC days left with Medicare. Goal is to wean her to 10 L of oxygen or less and discharge back to SNF History Interval history: The patient continued to desaturate when eating, wheezing and shortness of breath reported by patient She denies chest pain She admits to cough productive of thick yellow sputum Denies fevers, denies vomiting Hospitalist Physical - Physical exam Narrative exam: General.: Mild to moderate distress due to shortness of breath HEENT: Moist mucous membranes, extraocular muscles intact, no lymphadenopathy Neck: supple Cardiac: S1-S2 heard Lungs: Bilateral wheezing, decreased air entry Abdomen: soft , nontender, nondistended, bowel sounds positive Extremities: no edema clubbing or cyanosis Skin: no rash or lesions Neurologic: no gross focal deficits, lacks insight, poor cognition; apparently patient had brain surgery in the past and has not been the same since Psych: calm, and cooperative - Constitutional Vitals: Temp Pulse Resp BP Pulse Ox 99.0 F 85 20 147/100 95 10/03/18 05:29 10/03/18 07:43 10/03/18 07:43 10/03/18 06:32 10/03/18 07:36 General appearance: Present: mild distress Results - Labs CBC & Chem 7: 09/26/18 05:23 09/26/18 05:23 Labs: Laboratory Last Values WBC 17.3 K/mm3 (4.5-11.0) H 09/26/18 05:23 RBC 3.98 M/mm3 (3.65-5.03) 09/26/18 05:23 Hgb 12.1 gm/dl (10.1-14.3) 09/26/18 05:23 Hct 38.1 % (30.3-42.9) 09/26/18 05:23 MCV 96 fl (79-97) 09/26/18 05:23 MCH 30 pg (28-32) 09/26/18 05:23 MCHC 32 % (30-34) 09/26/18 05:23 RDW 16.5 % (13.2-15.2) H 09/26/18 05:23 Plt Count 129 K/mm3 (140-440) L 09/26/18 05:23 Lymph % (Auto) [employer] 09/26/18 05:23 [place] % (Auto) [employer] Specialist 09/26/18 05:23 Eos % (Auto) [employer] Specialist 09/26/18 05:23 Baso % (Auto) [employer] Specialist 09/26/18 05:23 Lymph # [employer]ist 09/26/18 05:23 [place] # [employer]ist 09/26/18 05:23 Eos # [employer] Specialist 09/26/18 05:23 Baso # [employer] Specialist 09/26/18 05:23 Add Manual Diff Complete 09/26/18 05:23 Total Counted 100 09/26/18 05:23 Seg Neutrophils % [employer]ist 09/26/18 05:23 Seg Neuts % (Manual) 87.0 % (40.0-70.0) H 09/26/18 05:23 1.0 % 09/26/18 05:23 8.0 % (13.4-35.0) L 09/26/18 05:23 Reactive Lymphs % (Man) 0 % 09/26/18 05:23 4.0 % (0.0-7.3) 09/26/18 05:23 0 % (0.0-4.3) 09/26/18 05:23 0 % (0.0-1.8) 09/26/18 05:23 0 % 09/26/18 05:23 0 % 09/26/18 05:23 0 % 09/26/18 05:23 0 % 09/26/18 05:23 Nucleated RBC % Not Reportable 09/26/18 05:23 Seg Neutrophils # [employer] Specialist 09/26/18 05:23 Seg Neutrophils # Man 15.1 K/mm3 (1.8-7.7) H 09/26/18 05:23 Band Neutrophils # 0.2 K/mm3 09/26/18 05:23 1.4 K/mm3 (1.2-5.4) 09/26/18 05:23 Abs React Lymphs (Man) 0.0 K/mm3 09/26/18 05:23 0.7 K/mm3 (0.0-0.8) 09/26/18 05:23 0.0 K/mm3 (0.0-0.4) 09/26/18 05:23 0.0 K/mm3 (0.0-0.1) 09/26/18 05:23 0.0 K/mm3 09/26/18 05:23 0.0 K/mm3 09/26/18 05:23 0.0 K/mm3 09/26/18 05:23 Blast Cells # 0.0 K/mm3 09/26/18 05:23 WBC Morphology Not Reportable 09/26/18 05:23 Hypersegmented Neuts Not Reportable 09/26/18 05:23 Hyposegmented Neuts Not Reportable 09/26/18 05:23 Hypogranular Neuts Not Reportable 09/26/18 05:23 Not Reportable 09/26/18 05:23 Not Reportable 09/26/18 05:23 Not Reportable 09/26/18 05:23 Not Reportable 09/26/18 05:23 Not Reportable 09/26/18 05:23 Not Reportable 09/26/18 05:23 Consistent w auto 09/26/18 05:23 Not Reportable 09/26/18 05:23 Plt Clumps, EDTA Not Reportable 09/26/18 05:23 Not Reportable 09/26/18 05:23 Not Reportable 09/26/18 05:23 Not Reportable 09/26/18 05:23 Plt Morphology Comment Not Reportable 09/26/18 05:23 RBC Morphology Not Reportable 09/26/18 05:23 Dimorphic RBCs Not Reportable 09/26/18 05:23 Not Reportable 09/26/18 05:23 Not Reportable 09/26/18 05:23 1+ 09/26/18 05:23 1+ 09/26/18 05:23 Not Reportable 09/26/18 05:23 Not Reportable 09/26/18 05:23 Not Reportable 09/26/18 05:23 Not Reportable 09/26/18 05:23 Not Reportable 09/26/18 05:23 Not Reportable 09/26/18 05:23 Not Reportable 09/26/18 05:23 Not Reportable 09/26/18 05:23 Not Reportable 09/26/18 05:23 Not Reportable 09/26/18 05:23 Not Reportable 09/26/18 05:23 Not Reportable 09/26/18 05:23 Not Reportable 09/26/18 05:23 Not Reportable 09/26/18 05:23 Not Reportable 09/26/18 05:23 Acanthocytes (Spur) Not Reportable 09/26/18 05:23 Rouleaux Not Reportable 09/26/18 05:23 Not Reportable 09/26/18 05:23 Not Reportable 09/26/18 05:23 Not Reportable 09/26/18 05:23 Not Reportable 09/26/18 05:23 Hem Pathologist Commnt No 09/26/18 05:23 PT 13.5 Sec. (12.2-14.9) 09/24/18 11:28 INR 0.97 (0.87-1.13) 09/24/18 11:28 APTT 25.8 Sec. (24.2-36.6) 09/24/18 11:28 POC ABG pH 7.375 (7.35-7.45) 09/24/18 17:11 POC ABG pO2 61 (80-105) L 09/24/18 17:11 POC ABG HCO3 44.4 (22-26 mml/L) 09/24/18 17:11 POC ABG Total CO2 47 (23-27mmol/L) 09/24/18 17:11 POC ABG O2 Sat 89 09/24/18 17:11 POC ABG Base Excess 19 ((-2) - (+3)mmol/L) 09/24/18 17:11 50 % 09/24/18 17:11 Sodium 140 mmol/L (137-145) 09/26/18 05:23 Potassium 5.1 mmol/L (3.6-5.0) H 09/26/18 05:23 Chloride 90.2 mmol/L (98-107) L 09/26/18 05:23 Carbon Dioxide 40 mmol/L (22-30) H 09/26/18 05:23 15 mmol/L 09/26/18 05:23 BUN 24 mg/dL (7-17) H 09/26/18 05:23 0.9 mg/dL (0.7-1.2) 09/26/18 05:23 Estimated GFR > 60 ml/min 09/26/18 05:23 27 % 09/26/18 05:23 Glucose 288 mg/dL (65-100) H 09/26/18 05:23 POC Glucose 173 (70-105) H 10/03/18 07:32 Calcium 8.0 mg/dL (8.4-10.2) L 09/26/18 05:23 0.20 mg/dL (0.1-1.2) 09/24/18 11:28 AST 28 units/L (5-40) 09/24/18 11:28 ALT 21 units/L (7-56) 09/24/18 11:28 64 units/L (35-129) 09/24/18 11:28 0.110 ng/mL (0.00-0.029) H* D 09/24/18 16:55 NT-Pro-B Natriuret Pep 2191 pg/mL (0-450) H 09/24/18 11:28 6.6 g/dL (6.3-8.2) 09/24/18 11:28 3.5 g/dL (3.9-5) L 09/24/18 11:28 1.1 % 09/24/18 11:28 Triglycerides 87 mg/dL (2-149) 09/24/18 11:28 Cholesterol 186 mg/dL (50-199) 09/24/18 11:28 73 mg/dL (50-130) 09/24/18 11:28 93 mg/dL (40-59) H 09/24/18 11:28 2.00 % 09/24/18 11:28 Active Medications - Current Medications Current Medications: Generic Name Dose Route Start Last Admin Trade Name Freq PRN Reason Stop Dose Admin Acetaminophen 650 mg 09/24/18 22:38 09/30/18 16:35 Tylenol PO 650 mg Q12H PRN Administration Non Cardiac Pain or Temp>100.5 Albuterol 2.5 mg 09/24/18 22:29 Proventil IH Q4HRT PRN Shortness Of Breath Albuterol 2.5 mg 09/28/18 12:00 10/03/18 07:27 Proventil IH 2.5 mg QIDRT JOE Administration Aspirin 325 mg 09/25/18 10:00 10/03/18 10:08 Ecotrin PO 325 mg DAILY JOE Administration Atorvastatin Calcium 40 mg 09/25/18 22:00 10/02/18 21:26 Lipitor PO 40 mg QHS OJE Administration Budesonide 0.5 mg 09/24/18 22:45 10/03/18 07:27 Pulmicort IH 0.5 mg Q12HRT JOE Administration Bupropion HCl 100 mg 09/25/18 10:00 10/03/18 10:13 Wellbutrin Sr PO 100 mg DAILY JOE Administration Carbamazepine 200 mg 09/25/18 10:00 10/03/18 10:10 Tegretol PO 200 mg DAILY JOE Administration Carvedilol 6.25 mg 09/24/18 23:00 10/03/18 10:09 Coreg PO 6.25 mg BID JOE Administration Enoxaparin Sodium 40 mg 09/25/18 22:00 10/02/18 21:27 Lovenox SUB-Q 40 mg QDAY@2200 JOE Administration Famotidine 20 mg 09/25/18 10:00 10/03/18 10:10 Pepcid PO 20 mg DAILY JOE Administration Fluticasone Propionate 50 mcg 09/25/18 10:00 10/03/18 10:07 Flonase NS 50 mcg BID JOE Administration Guaifenesin 600 mg 09/29/18 10:30 10/03/18 10:13 Mucinex Er PO 600 mg BID JOE Administration Hydralazine HCl 37.5 mg 09/24/18 23:00 10/03/18 06:32 Apresoline PO 37.5 mg Q8HR JOE Administration Insulin Glargine 25 units 10/01/18 22:00 10/02/18 22:04 Lantus SUB-Q 25 units BID JOE Administration Insulin Human Lispro 0 unit 09/25/18 07:30 10/03/18 08:35 Humalog SUB-Q 3 unit ACHS JOE Administration Protocol Insulin Human Lispro 6 unit 10/01/18 16:30 10/03/18 08:36 Humalog SUB-Q 6 unit AC JOE Administration Isosorbide Dinitrate 20 mg 09/24/18 23:00 10/03/18 06:31 Isordil Titradose PO 20 mg Q8HR JOE Administration Loratadine 10 mg 09/25/18 10:00 10/03/18 10:09 Claritin PO 10 mg DAILY JOE Administration Lorazepam 0.5 mg 09/25/18 10:00 10/03/18 10:08 Ativan PO 0.5 mg DAILY JEO Administration Lorazepam 1 mg 09/30/18 20:39 09/30/18 22:12 Ativan IV 1 mg Q2H PRN Administration Agitation Losartan Potassium 50 mg 09/25/18 10:00 10/03/18 10:08 Cozaar PO 50 mg QDAY JOE Administration Metformin HCl 1,000 mg 09/25/18 08:00 10/03/18 08:37 Glucophage PO 1,000 mg BIDDIAB JOE Administration Methadone HCl 5 mg 09/25/18 10:00 10/03/18 10:09 Dolophine PO 5 mg BID JOE Administration Methylprednisolone Sodium Succinate 60 mg 09/25/18 16:13 10/03/18 06:52 Solu-Medrol IV 60 mg Q8HR JOE Administration Montelukast Sodium 10 mg 09/25/18 22:00 10/02/18 21:26 Singulair PO 10 mg QHS JOE Administration Polyethylene Glycol 17 gm 09/24/18 22:38 10/02/18 21:32 Miralax 3350 PO 17 gm QDAY PRN Administration Constipation Quetiapine Fumarate 300 mg 09/24/18 23:00 10/03/18 10:09 Seroquel PO 300 mg Q12HR JOE Administration Spironolactone 25 mg 09/25/18 10:00 10/03/18 10:09 Aldactone PO 25 mg QDAY JOE Administration Trazodone HCl 50 mg 09/25/18 22:00 10/02/18 21:30 Desyrel PO 50 mg QHS JOE Administration Zolpidem Tartrate 5 mg 09/24/18 22:38 10/02/18 23:52 Ambien PO 5 mg QHS PRN Administration Insomnia Nutrition/Malnutrition Assess - Dietary Evaluation Nutrition/Malnutrition Findings: Nutrition Notes Start: 10/01/18 17:31 Freq: Status: Active Protocol: Document 10/01/18 17:31 RM (Rec: 10/01/18 17:31 RM [id number]) Nutrition Notes Need for Assessment generated from: LOS Initial or Follow up Brief Note Height 5 ft 7 in Weight 126.099 kg [place] Body Weight (kg) 61.36 BMI 43.5 Subjective/Other Information Screened for LOS. Recorded PO intake 94% X 4 meals. Nutrition Intervention Revisit per MD consult or patient Sign Off request:
[2018-10-03] MEDS: SINGULAIR PO SCH (22:22)
[2018-10-03] MEDS: DESYREL PO SCH (22:24)
[2018-10-03] MEDS: LOVENOX SUB-Q SCH (22:28)
[2018-10-04] MEDS: AMBIEN PO PRN (00:02)
[2018-10-04] MEDS: ATIVAN IV PRN (00:02)
[2018-10-04] MEDS: APRESOLINE PO SCH ×3 (05:56→22:02)
[2018-10-04] MEDS: SOLU-Medrol IV SCH ×3 (05:57→22:05)
[2018-10-04] MEDS: ISORDIL TITRADOSE PO SCH ×3 (05:57→22:04)
[2018-10-04] MEDS: HumaLOG SUB-Q SCH ×7 (07:30→22:04)
[2018-10-04] MEDS: GLUCOPHAGE PO SCH ×2 (08:00→17:04)
[2018-10-04] MEDS: PROVENTIL IH SCH ×4 (08:29→20:49)
[2018-10-04] MEDS: PULMICORT IH SCH ×2 (08:30→20:48)
[2018-10-04] MEDS: LANTUS SUB-Q SCH ×2 (09:44→22:15)
[2018-10-04] MEDS: WELLBUTRIN SR PO SCH (09:47)
[2018-10-04] MEDS: MUCINEX ER PO SCH ×2 (09:47→22:05)
[2018-10-04] MEDS: ALDACTONE PO SCH (09:48)
[2018-10-04] MEDS: COZAAR PO SCH (09:48)
[2018-10-04] MEDS: ECOTRIN PO SCH (09:48)
[2018-10-04] MEDS: DOLOPHINE PO SCH ×2 (09:51→22:03)
[2018-10-04] MEDS: CLARITIN PO SCH (09:52)
[2018-10-04] MEDS: PEPCID PO SCH (09:52)
[2018-10-04] MEDS: COREG PO SCH ×2 (09:52→22:03)
[2018-10-04] MEDS: ATIVAN PO SCH (09:52)
[2018-10-04] MEDS: FLONASE NS SCH ×2 (09:54→22:47)
--- NOTE | 2018-10-04 11:05 | Progress Note ---
Assessment and Plan 48 y/o male with known systolic heart failure, and COPD, admitted with acute respiratory failure secondary to volume overload with COPD exacerbation. 1. Suggest changing steroids to 40q8 2. Continue supplemental O2 and wean for sats >88% 3. PPV at night 4. Hopeful discharge back to the facility soon Subjective Date of service: 10/04/18 Principal diagnosis: systolic heart failure,COPD exac, acute respiratory failure Interval history: No acute events. Wore bipap last night. States that breathing is much better. Objective Vital Signs - 12hr 10/04/18 10/04/18 10/04/18 00:18 05:05 05:56 Temperature 98.5 F Pulse Rate 91 H 91 H Pulse Rate [ Anterior Bilateral Throughout] Respiratory 19 20 Rate Respiratory Rate [Anterior Bilateral Throughout] Blood Pressure 142/93 143/92 O2 Sat by Pulse 94 93 Oximetry 10/04/18 10/04/18 10/04/18 05:57 08:20 08:31 Temperature Pulse Rate 91 H Pulse Rate [ 90 95 H Anterior Bilateral Throughout] Respiratory Rate Respiratory 18 19 Rate [Anterior Bilateral Throughout] Blood Pressure 142/93 O2 Sat by Pulse Oximetry 10/04/18 08:57 Temperature Pulse Rate Pulse Rate [ Anterior Bilateral Throughout] Respiratory Rate Respiratory Rate [Anterior Bilateral Throughout] Blood Pressure O2 Sat by Pulse 98 Oximetry Constitutional: no acute distress, alert, other (morbidly obese) Eyes: non-icteric ENT: oropharynx moist Neck: supple Effort: normal Ascultation: Bilateral: diminished breath sounds, wheezes (mild), rales (bibasilar) Percussion: Bilateral: not dull Tactile fremitus: Bilateral: normal Cardiovascular: regular rate and rhythm Gastrointestinal: normoactive bowel sounds, absent bowel sounds, soft Extremities: no cyanosis, no edema, edema Neurologic: normal mental status, non-focal exam, pupils equal and round, CN II- XII normal Psychiatric: other (upset) CBC and BMP: 09/26/18 05:23 09/26/18 05:23 ABG, PT/INR, D-dimer: ABG POC ABG pH 7.375 (7.35-7.45) 09/24/18 17:11 POC ABG pO2 61 (80-105) L 09/24/18 17:11 POC ABG HCO3 44.4 (22-26 mml/L) 09/24/18 17:11 POC ABG Total CO2 47 (23-27mmol/L) 09/24/18 17:11 POC ABG O2 Sat 89 09/24/18 17:11 PT/INR, D-dimer PT 13.5 Sec. (12.2-14.9) 09/24/18 11:28 INR 0.97 (0.87-1.13) 09/24/18 11:28 Abnormal lab findings: Abnormal Labs 09/24/18 09/24/18 09/24/18 11:28 11:28 12:46 WBC RDW 17.0 H Plt Count Seg Neuts % (Manual) 77.0 H Lymphocytes % (Manual) Seg Neutrophils # Man POC ABG pH 7.256 L POC ABG pO2 161 H Potassium 5.9 H Chloride 92.3 L Carbon Dioxide 31 H BUN Glucose 280 H POC Glucose Calcium Troponin T 0.069 H NT-Pro-B Natriuret Pep 2191 H Albumin 3.5 L HDL Cholesterol 93 H 09/24/18 09/24/18 09/24/18 14:15 14:46 16:55 WBC RDW Plt Count Seg Neuts % (Manual) Lymphocytes % (Manual) Seg Neutrophils # Man POC ABG pH 7.336 L POC ABG pO2 68 L Potassium Chloride Carbon Dioxide BUN Glucose POC Glucose Calcium Troponin T 0.067 H 0.110 H* D NT-Pro-B Natriuret Pep Albumin HDL Cholesterol 09/24/18 09/24/18 09/25/18 17:11 23:51 07:27 WBC RDW Plt Count Seg Neuts % (Manual) Lymphocytes % (Manual) Seg Neutrophils # Man POC ABG pH POC ABG pO2 61 L Potassium Chloride Carbon Dioxide BUN Glucose POC Glucose 160 H 231 H Calcium Troponin T NT-Pro-B Natriuret Pep Albumin HDL Cholesterol 09/25/18 09/25/18 09/25/18 11:48 15:47 16:24 WBC RDW Plt Count Seg Neuts % (Manual) Lymphocytes % (Manual) Seg Neutrophils # Man POC ABG pH POC ABG pO2 Potassium Chloride 92.2 L Carbon Dioxide 40 H D BUN 19 H Glucose 183 H POC Glucose 307 H 272 H Calcium 8.3 L Troponin T NT-Pro-B Natriuret Pep Albumin HDL Cholesterol 09/25/18 09/26/18 09/26/18 20:13 05:23 05:23 WBC 17.3 H RDW 16.5 H Plt Count 129 L Seg Neuts % (Manual) 87.0 H Lymphocytes % (Manual) 8.0 L Seg Neutrophils # Man 15.1 H POC ABG pH POC ABG pO2 Potassium 5.1 H Chloride 90.2 L Carbon Dioxide 40 H BUN 24 H Glucose 288 H POC Glucose 144 H Calcium 8.0 L Troponin T NT-Pro-B Natriuret Pep Albumin HDL Cholesterol 09/26/18 09/26/18 09/26/18 08:47 12:21 16:35 WBC RDW Plt Count Seg Neuts % (Manual) Lymphocytes % (Manual) Seg Neutrophils # Man POC ABG pH POC ABG pO2 Potassium Chloride Carbon Dioxide BUN Glucose POC Glucose 326 H 304 H 266 H Calcium Troponin T NT-Pro-B Natriuret Pep Albumin HDL Cholesterol 09/26/18 09/27/18 09/27/18 21:29 08:25 11:42 WBC RDW Plt Count Seg Neuts % (Manual) Lymphocytes % (Manual) Seg Neutrophils # Man POC ABG pH POC ABG pO2 Potassium Chloride Carbon Dioxide BUN Glucose POC Glucose 350 H 284 H 317 H Calcium Troponin T NT-Pro-B Natriuret Pep Albumin HDL Cholesterol 09/27/18 09/27/18 09/28/18 16:05 21:21 07:18 WBC RDW Plt Count Seg Neuts % (Manual) Lymphocytes % (Manual) Seg Neutrophils # Man POC ABG pH POC ABG pO2 Potassium Chloride Carbon Dioxide BUN Glucose POC Glucose 338 H 390 H 313 H Calcium Troponin T NT-Pro-B Natriuret Pep Albumin HDL Cholesterol 09/28/18 09/28/18 09/28/18 11:24 16:02 22:05 WBC RDW Plt Count Seg Neuts % (Manual) Lymphocytes % (Manual) Seg Neutrophils # Man POC ABG pH POC ABG pO2 Potassium Chloride Carbon Dioxide BUN Glucose POC Glucose 322 H 251 H 237 H Calcium Troponin T NT-Pro-B Natriuret Pep Albumin HDL Cholesterol 09/29/18 09/29/18 09/29/18 08:42 11:47 16:32 WBC RDW Plt Count Seg Neuts % (Manual) Lymphocytes % (Manual) Seg Neutrophils # Man POC ABG pH POC ABG pO2 Potassium Chloride Carbon Dioxide BUN Glucose POC Glucose 406 H 393 H 213 H Calcium Troponin T NT-Pro-B Natriuret Pep Albumin HDL Cholesterol 09/29/18 09/30/18 09/30/18 21:55 07:46 07:49 WBC RDW Plt Count Seg Neuts % (Manual) Lymphocytes % (Manual) Seg Neutrophils # Man POC ABG pH POC ABG pO2 Potassium Chloride Carbon Dioxide BUN Glucose POC Glucose 318 H > 500 H 313 H Calcium Troponin T NT-Pro-B Natriuret Pep Albumin HDL Cholesterol 09/30/18 09/30/18 09/30/18 11:33 16:25 21:16 WBC RDW Plt Count Seg Neuts % (Manual) Lymphocytes % (Manual) Seg Neutrophils # Man POC ABG pH POC ABG pO2 Potassium Chloride Carbon Dioxide BUN Glucose POC Glucose 239 H 246 H 336 H Calcium Troponin T NT-Pro-B Natriuret Pep Albumin HDL Cholesterol 10/01/18 10/01/18 10/01/18 08:00 11:33 16:16 WBC RDW Plt Count Seg Neuts % (Manual) Lymphocytes % (Manual) Seg Neutrophils # Man POC ABG pH POC ABG pO2 Potassium Chloride Carbon Dioxide BUN Glucose POC Glucose 281 H 307 H 146 H Calcium Troponin T NT-Pro-B Natriuret Pep Albumin HDL Cholesterol 10/01/18 10/02/18 10/02/18 21:05 07:16 12:14 WBC RDW Plt Count Seg Neuts % (Manual) Lymphocytes % (Manual) Seg Neutrophils # Man POC ABG pH POC ABG pO2 Potassium Chloride Carbon Dioxide BUN Glucose POC Glucose 251 H 247 H 261 H Calcium Troponin T NT-Pro-B Natriuret Pep Albumin HDL Cholesterol 10/02/18 10/02/18 10/03/18 16:13 21:39 07:32 WBC RDW Plt Count Seg Neuts % (Manual) Lymphocytes % (Manual) Seg Neutrophils # Man POC ABG pH POC ABG pO2 Potassium Chloride Carbon Dioxide BUN Glucose POC Glucose 135 H 169 H 173 H Calcium Troponin T NT-Pro-B Natriuret Pep Albumin HDL Cholesterol 10/03/18 10/03/18 10/03/18 11:32 17:23 21:03 WBC RDW Plt Count Seg Neuts % (Manual) Lymphocytes % (Manual) Seg Neutrophils # Man POC ABG pH POC ABG pO2 Potassium Chloride Carbon Dioxide BUN Glucose POC Glucose 197 H 175 H 213 H Calcium Troponin T NT-Pro-B Natriuret Pep Albumin HDL Cholesterol 10/04/18 07:45 WBC RDW Plt Count Seg Neuts % (Manual) Lymphocytes % (Manual) Seg Neutrophils # Man POC ABG pH POC ABG pO2 Potassium Chloride Carbon Dioxide BUN Glucose POC Glucose 264 H Calcium Troponin T NT-Pro-B Natriuret Pep Albumin HDL Cholesterol
--- NOTE | 2018-10-04 12:39 | Discharge Summary ---
Providers - Providers Date of Admission: 09/24/18 17:10 Attending physician: PRINCESS RAMOS MD 09/25/18 07:14 Consult to Physician [CONS] Routine Comment: Consulting Provider: TJ BOND Physician Instructions: Reason For Exam: Resp failure [facility] Condition: Serious Disposition: DC-30 STILL A PATIENT Exam - Constitutional Vitals: Temp Pulse Resp BP Pulse Ox 98.5 F 95 H 19 142/93 98 10/04/18 05:05 10/04/18 08:31 10/04/18 08:31 10/04/18 05:57 10/04/18 08:57 Plan Follow up with: NOMAN JESUS MD [Primary Care Provider] - 3-5 Days
--- NOTE | 2018-10-04 16:09 | Progress Note ---
Assessment and Plan Assessment and plan: 48-year-old -[place] female with medical history significant for morbid obesity, chronic systolic CHF, COPD, diabetes, sleep apnea presented to the emergency department from [facility] with complaints of shortness of breath. Patient was placed on BiPAP and admitted to MICU. Patient was intubated previously. Patient's also complaining of cough which is productive with white sputum but denied fever, chills. Acute respiratory failure with Hypercarbia and hypoxia NIV at night, NC during day improved COPD exacerbation - cont steroids and nebs, improving Acute exacerbation of Chronic systolic heart failure, elevated troponin - Cardiology consult appreciated, - Recommend medical management, she was diuresed, now off lasix Diabetes mellitus - cont to adjust insulins HLD - Continue statin DVT prophylaxis - On Lovenox Disposition; back to [place] tomorrow if pulmonology agrees History Interval history: The patient continued to desaturate when eating, wheezing and shortness of breath reported by patient She denies chest pain She admits to cough productive of thick yellow sputum Denies fevers, denies vomiting Hospitalist Physical - Physical exam Narrative exam: General.: Mild to moderate distress due to shortness of breath HEENT: Moist mucous membranes, extraocular muscles intact, no lymphadenopathy Neck: supple Cardiac: S1-S2 heard Lungs: Bilateral wheezing, decreased air entry Abdomen: soft , nontender, nondistended, bowel sounds positive Extremities: no edema clubbing or cyanosis Skin: no rash or lesions Neurologic: no gross focal deficits, lacks insight, poor cognition; apparently patient had brain surgery in the past and has not been the same since Psych: calm, and cooperative - Constitutional Vitals: Temp Pulse Resp BP Pulse Ox 97.8 F 95 H 18 151/98 91 10/04/18 11:52 10/04/18 15:16 10/04/18 15:16 10/04/18 11:52 10/04/18 11:52 General appearance: Present: mild distress Results - Labs CBC & Chem 7: 09/26/18 05:23 09/26/18 05:23 Labs: Laboratory Last Values WBC 17.3 K/mm3 (4.5-11.0) H 09/26/18 05:23 RBC 3.98 M/mm3 (3.65-5.03) 09/26/18 05:23 Hgb 12.1 gm/dl (10.1-14.3) 09/26/18 05:23 Hct 38.1 % (30.3-42.9) 09/26/18 05:23 MCV 96 fl (79-97) 09/26/18 05:23 MCH 30 pg (28-32) 09/26/18 05:23 MCHC 32 % (30-34) 09/26/18 05:23 RDW 16.5 % (13.2-15.2) H 09/26/18 05:23 Plt Count 129 K/mm3 (140-440) L 09/26/18 05:23 Lymph % (Auto) [place] 09/26/18 05:23 [place] % (Auto) [place] 09/26/18 05:23 Eos % (Auto) [place] 09/26/18 05:23 Baso % (Auto) [place] 09/26/18 05:23 Lymph # [place] 09/26/18 05:23 [place] # [place] 09/26/18 05:23 Eos # [place] 09/26/18 05:23 Baso # [place] 09/26/18 05:23 Add Manual Diff Complete 09/26/18 05:23 Total Counted 100 09/26/18 05:23 Seg Neutrophils % [place] 09/26/18 05:23 Seg Neuts % (Manual) 87.0 % (40.0-70.0) H 09/26/18 05:23 1.0 % 09/26/18 05:23 8.0 % (13.4-35.0) L 09/26/18 05:23 Reactive Lymphs % (Man) 0 % 09/26/18 05:23 4.0 % (0.0-7.3) 09/26/18 05:23 0 % (0.0-4.3) 09/26/18 05:23 0 % (0.0-1.8) 09/26/18 05:23 0 % 09/26/18 05:23 0 % 09/26/18 05:23 0 % 09/26/18 05:23 0 % 09/26/18 05:23 Nucleated RBC % Not Reportable 09/26/18 05:23 Seg Neutrophils # [place] 09/26/18 05:23 Seg Neutrophils # Man 15.1 K/mm3 (1.8-7.7) H 09/26/18 05:23 Band Neutrophils # 0.2 K/mm3 09/26/18 05:23 1.4 K/mm3 (1.2-5.4) 09/26/18 05:23 Abs React Lymphs (Man) 0.0 K/mm3 09/26/18 05:23 0.7 K/mm3 (0.0-0.8) 09/26/18 05:23 0.0 K/mm3 (0.0-0.4) 09/26/18 05:23 0.0 K/mm3 (0.0-0.1) 09/26/18 05:23 0.0 K/mm3 09/26/18 05:23 0.0 K/mm3 09/26/18 05:23 0.0 K/mm3 09/26/18 05:23 Blast Cells # 0.0 K/mm3 09/26/18 05:23 WBC Morphology Not Reportable 09/26/18 05:23 Hypersegmented Neuts Not Reportable 09/26/18 05:23 Hyposegmented Neuts Not Reportable 09/26/18 05:23 Hypogranular Neuts Not Reportable 09/26/18 05:23 Not Reportable 09/26/18 05:23 Not Reportable 09/26/18 05:23 Not Reportable 09/26/18 05:23 Not Reportable 09/26/18 05:23 Not Reportable 09/26/18 05:23 Not Reportable 09/26/18 05:23 Consistent w auto 09/26/18 05:23 Not Reportable 09/26/18 05:23 Plt Clumps, EDTA Not Reportable 09/26/18 05:23 Not Reportable 09/26/18 05:23 Not Reportable 09/26/18 05:23 Not Reportable 09/26/18 05:23 Plt Morphology Comment Not Reportable 09/26/18 05:23 RBC Morphology Not Reportable 09/26/18 05:23 Dimorphic RBCs Not Reportable 09/26/18 05:23 Not Reportable 09/26/18 05:23 Not Reportable 09/26/18 05:23 1+ 09/26/18 05:23 1+ 09/26/18 05:23 Not Reportable 09/26/18 05:23 Not Reportable 09/26/18 05:23 Not Reportable 09/26/18 05:23 Not Reportable 09/26/18 05:23 Not Reportable 09/26/18 05:23 Not Reportable 09/26/18 05:23 Not Reportable 09/26/18 05:23 Not Reportable 09/26/18 05:23 Not Reportable 09/26/18 05:23 Not Reportable 09/26/18 05:23 Not Reportable 09/26/18 05:23 Not Reportable 09/26/18 05:23 Not Reportable 09/26/18 05:23 Not Reportable 09/26/18 05:23 Not Reportable 09/26/18 05:23 Acanthocytes (Spur) Not Reportable 09/26/18 05:23 Rouleaux Not Reportable 09/26/18 05:23 Not Reportable 09/26/18 05:23 Not Reportable 09/26/18 05:23 Not Reportable 09/26/18 05:23 Not Reportable 09/26/18 05:23 Hem Pathologist Commnt No 09/26/18 05:23 PT 13.5 Sec. (12.2-14.9) 09/24/18 11:28 INR 0.97 (0.87-1.13) 09/24/18 11:28 APTT 25.8 Sec. (24.2-36.6) 09/24/18 11:28 POC ABG pH 7.375 (7.35-7.45) 09/24/18 17:11 POC ABG pO2 61 (80-105) L 09/24/18 17:11 POC ABG HCO3 44.4 (22-26 mml/L) 09/24/18 17:11 POC ABG Total CO2 47 (23-27mmol/L) 09/24/18 17:11 POC ABG O2 Sat 89 09/24/18 17:11 POC ABG Base Excess 19 ((-2) - (+3)mmol/L) 09/24/18 17:11 50 % 09/24/18 17:11 Sodium 140 mmol/L (137-145) 09/26/18 05:23 Potassium 5.1 mmol/L (3.6-5.0) H 09/26/18 05:23 Chloride 90.2 mmol/L (98-107) L 09/26/18 05:23 Carbon Dioxide 40 mmol/L (22-30) H 09/26/18 05:23 15 mmol/L 09/26/18 05:23 BUN 24 mg/dL (7-17) H 09/26/18 05:23 0.9 mg/dL (0.7-1.2) 09/26/18 05:23 Estimated GFR > 60 ml/min 09/26/18 05:23 27 % 09/26/18 05:23 Glucose 288 mg/dL (65-100) H 09/26/18 05:23 POC Glucose 374 (70-105) H 10/04/18 11:37 Calcium 8.0 mg/dL (8.4-10.2) L 09/26/18 05:23 0.20 mg/dL (0.1-1.2) 09/24/18 11:28 AST 28 units/L (5-40) 09/24/18 11:28 ALT 21 units/L (7-56) 09/24/18 11:28 64 units/L (35-129) 09/24/18 11:28 0.110 ng/mL (0.00-0.029) H* D 09/24/18 16:55 NT-Pro-B Natriuret Pep 2191 pg/mL (0-450) H 09/24/18 11:28 6.6 g/dL (6.3-8.2) 09/24/18 11:28 3.5 g/dL (3.9-5) L 09/24/18 11:28 1.1 % 09/24/18 11:28 Triglycerides 87 mg/dL (2-149) 09/24/18 11:28 Cholesterol 186 mg/dL (50-199) 09/24/18 11:28 73 mg/dL (50-130) 09/24/18 11:28 93 mg/dL (40-59) H 09/24/18 11:28 2.00 % 09/24/18 11:28 Active Medications - Current Medications Current Medications: Generic Name Dose Route Start Last Admin Trade Name Freq PRN Reason Stop Dose Admin Acetaminophen 650 mg 09/24/18 22:38 09/30/18 16:35 Tylenol PO 650 mg Q12H PRN Administration Non Cardiac Pain or Temp>100.5 Albuterol 2.5 mg 09/24/18 22:29 Proventil IH Q4HRT PRN Shortness Of Breath Albuterol 2.5 mg 09/28/18 12:00 10/04/18 15:12 Proventil IH 2.5 mg QIDRT JOE Administration Aspirin 325 mg 09/25/18 10:00 10/04/18 09:48 Ecotrin PO 325 mg DAILY JOE Administration Atorvastatin Calcium 40 mg 09/25/18 22:00 10/03/18 22:23 Lipitor PO 40 mg QHS JOE Administration Budesonide 0.5 mg 09/24/18 22:45 10/04/18 08:30 Pulmicort IH 0.5 mg Q12HRT JOE Administration Bupropion HCl 100 mg 09/25/18 10:00 10/04/18 09:47 Wellbutrin Sr PO 100 mg DAILY JOE Administration Carbamazepine 200 mg 09/25/18 10:00 10/04/18 09:51 Tegretol PO 200 mg DAILY JOE Administration Carvedilol 6.25 mg 09/24/18 23:00 10/04/18 09:52 Coreg PO 6.25 mg BID [facility] Administration Enoxaparin Sodium 40 mg 09/25/18 22:00 10/03/18 22:28 Lovenox SUB-Q 40 mg QDAY@2200 [facility] Administration Famotidine 20 mg 09/25/18 10:00 10/04/18 09:52 Pepcid PO 20 mg DAILY [facility] Administration Fluticasone Propionate 50 mcg 09/25/18 10:00 10/04/18 09:54 Flonase NS 50 mcg BID [facility] Administration Guaifenesin 600 mg 09/29/18 10:30 10/04/18 09:47 Mucinex Er PO 600 mg BID [facility] Administration Hydralazine HCl 37.5 mg 09/24/18 23:00 10/04/18 14:58 Apresoline PO 37.5 mg Q8HR JOE Administration Insulin Glargine 30 units 10/04/18 22:00 Lantus SUB-Q BID [facility] Insulin Human Lispro 0 unit 09/25/18 07:30 10/04/18 12:21 Humalog SUB-Q 10 unit ACHS [facility] Administration Protocol Insulin Human Lispro 10 unit 10/04/18 12:37 Humalog SUB-Q AC [facility] Isosorbide Dinitrate 20 mg 09/24/18 23:00 10/04/18 14:59 Isordil Titradose PO 20 mg Q8HR JOE Administration Loratadine 10 mg 09/25/18 10:00 10/04/18 09:52 Claritin PO 10 mg DAILY JOE Administration Lorazepam 0.5 mg 09/25/18 10:00 10/04/18 09:52 Ativan PO 0.5 mg DAILY JOE Administration Lorazepam 1 mg 09/30/18 20:39 10/04/18 00:02 Ativan IV 1 mg Q2H PRN Administration Agitation Losartan Potassium 50 mg 09/25/18 10:00 10/04/18 09:48 Cozaar PO 50 mg QDAY JOE Administration Metformin HCl 1,000 mg 09/25/18 08:00 10/04/18 08:00 Glucophage PO 1,000 mg BIDDIAB JOE Administration Methadone HCl 5 mg 09/25/18 10:00 10/04/18 09:51 Dolophine PO 5 mg BID JOE Administration Methylprednisolone Sodium Succinate 60 mg 09/25/18 16:13 10/04/18 14:58 Solu-Medrol IV 60 mg Q8HR JOE Administration Montelukast Sodium 10 mg 09/25/18 22:00 10/03/18 22:22 Singulair PO 10 mg QHS JOE Administration Polyethylene Glycol 17 gm 09/24/18 22:38 10/02/18 21:32 Miralax 3350 PO 17 gm QDAY PRN Administration Constipation Quetiapine Fumarate 300 mg 09/24/18 23:00 10/04/18 09:50 Seroquel PO 300 mg Q12HR JOE Administration Spironolactone 25 mg 09/25/18 10:00 10/04/18 09:48 Aldactone PO 25 mg QDAY JOE Administration Trazodone HCl 50 mg 09/25/18 22:00 10/03/18 22:24 Desyrel PO 50 mg QHS JOE Administration Zolpidem Tartrate 5 mg 09/24/18 22:38 10/04/18 00:02 Ambien PO 5 mg QHS PRN Administration Insomnia Nutrition/Malnutrition Assess - Dietary Evaluation Nutrition/Malnutrition Findings: Nutrition Notes Start: 10/01/18 17:31 Freq: Status: Active Protocol: Document 10/01/18 17:31 RM (Rec: 10/01/18 17:31 RM [id number]) Nutrition Notes Need for Assessment generated from: LOS Initial or Follow up Brief Note Height 5 ft 7 in Weight 126.099 kg Otto Body Weight (kg) 61.36 BMI 43.5 Subjective/Other Information Screened for LOS. Recorded PO intake 94% X 4 meals. Nutrition Intervention Revisit per MD consult or patient Sign Off request:
[2018-10-04] MEDS: TYLENOL PO PRN (18:10)
[2018-10-04] MEDS: DESYREL PO SCH (22:03)
[2018-10-04] MEDS: SINGULAIR PO SCH (22:05)
[2018-10-04] MEDS: LOVENOX SUB-Q SCH (22:05)
[2018-10-05] MEDS: ATIVAN IV PRN (00:02)
[2018-10-05] MEDS: ISORDIL TITRADOSE PO SCH ×2 (06:20→13:11)
[2018-10-05] MEDS: APRESOLINE PO SCH ×2 (06:20→13:11)
[2018-10-05] MEDS: SOLU-Medrol IV SCH (06:20)
[2018-10-05] MEDS: HumaLOG SUB-Q SCH ×6 (07:30→16:24)
[2018-10-05] MEDS: GLUCOPHAGE PO SCH (08:00)
[2018-10-05] MEDS: PULMICORT IH SCH (08:54)
[2018-10-05] MEDS: PROVENTIL IH SCH ×3 (08:54→16:01)
[2018-10-05] MEDS: MUCINEX ER PO SCH (09:42)
[2018-10-05] MEDS: COREG PO SCH (09:42)
[2018-10-05] MEDS: ATIVAN PO SCH (09:42)
[2018-10-05] MEDS: DOLOPHINE PO SCH (09:42)
[2018-10-05] MEDS: ECOTRIN PO SCH (09:43)
[2018-10-05] MEDS: ALDACTONE PO SCH (09:43)
[2018-10-05] MEDS: WELLBUTRIN SR PO SCH (09:43)
[2018-10-05] MEDS: COZAAR PO SCH (09:43)
[2018-10-05] MEDS: PEPCID PO SCH (09:44)
[2018-10-05] MEDS: CLARITIN PO SCH (09:44)
[2018-10-05] MEDS: FLONASE NS SCH (09:44)
[2018-10-05] MEDS: LANTUS SUB-Q SCH (09:46)
[2018-10-05] MEDS ORDERED: SOLU-Medrol IV SCH ×2 (12:03→14:00)
--- NOTE | 2018-10-05 12:50 | Progress Note ---
Assessment and Plan 48 y/o male with known systolic heart failure, and COPD, admitted with acute respiratory failure secondary to volume overload with COPD exacerbation. 1. Suggest changing steroids to 40q8, did this today. 2. Continue supplemental O2 and wean for sats >88% 3. PPV at night 4. Hopeful discharge back to the facility soon Subjective Date of service: 10/05/18 Principal diagnosis: systolic heart failure,COPD exac, acute respiratory failure Interval history: Steroids not changed so changed today. Objective Vital Signs - 12hr 10/05/18 10/05/18 10/05/18 05:42 08:32 08:40 Temperature 98.0 F Pulse Rate 97 H Pulse Rate [ 92 H Anterior Bilateral Throughout] Respiratory 20 Rate Respiratory 20 Rate [Anterior Bilateral Throughout] Blood Pressure 147/89 O2 Sat by Pulse 95 88 Oximetry 10/05/18 10/05/18 10/05/18 08:45 12:00 12:08 Temperature Pulse Rate Pulse Rate [ 94 H 96 H 94 H Anterior Bilateral Throughout] Respiratory Rate Respiratory 20 18 18 Rate [Anterior Bilateral Throughout] Blood Pressure O2 Sat by Pulse Oximetry Constitutional: no acute distress, alert, other (morbidly obese) Eyes: non-icteric ENT: oropharynx moist Neck: supple Effort: normal Ascultation: Bilateral: clear, diminished breath sounds, wheezes (mild), rales (bibasilar), rhonchi (occasional) Percussion: Bilateral: not dull Tactile fremitus: Bilateral: normal Cardiovascular: regular rate and rhythm Gastrointestinal: normoactive bowel sounds, absent bowel sounds, soft Extremities: no cyanosis, no edema, edema Neurologic: normal mental status, non-focal exam, pupils equal and round, CN II- XII normal Psychiatric: other (upset) CBC and BMP: 09/26/18 05:23 09/26/18 05:23 ABG, PT/INR, D-dimer: ABG POC ABG pH 7.375 (7.35-7.45) 09/24/18 17:11 POC ABG pO2 61 (80-105) L 09/24/18 17:11 POC ABG HCO3 44.4 (22-26 mml/L) 09/24/18 17:11 POC ABG Total CO2 47 (23-27mmol/L) 09/24/18 17:11 POC ABG O2 Sat 89 09/24/18 17:11 PT/INR, D-dimer PT 13.5 Sec. (12.2-14.9) 09/24/18 11:28 INR 0.97 (0.87-1.13) 09/24/18 11:28 Abnormal lab findings: Abnormal Labs 09/24/18 09/24/18 09/24/18 11:28 11:28 12:46 WBC RDW 17.0 H Plt Count Seg Neuts % (Manual) 77.0 H Lymphocytes % (Manual) Seg Neutrophils # Man POC ABG pH 7.256 L POC ABG pO2 161 H Potassium 5.9 H Chloride 92.3 L Carbon Dioxide 31 H BUN Glucose 280 H POC Glucose Calcium Troponin T 0.069 H NT-Pro-B Natriuret Pep 2191 H Albumin 3.5 L HDL Cholesterol 93 H 09/24/18 09/24/18 09/24/18 14:15 14:46 16:55 WBC RDW Plt Count Seg Neuts % (Manual) Lymphocytes % (Manual) Seg Neutrophils # Man POC ABG pH 7.336 L POC ABG pO2 68 L Potassium Chloride Carbon Dioxide BUN Glucose POC Glucose Calcium Troponin T 0.067 H 0.110 H* D NT-Pro-B Natriuret Pep Albumin HDL Cholesterol 09/24/18 09/24/18 09/25/18 17:11 23:51 07:27 WBC RDW Plt Count Seg Neuts % (Manual) Lymphocytes % (Manual) Seg Neutrophils # Man POC ABG pH POC ABG pO2 61 L Potassium Chloride Carbon Dioxide BUN Glucose POC Glucose 160 H 231 H Calcium Troponin T NT-Pro-B Natriuret Pep Albumin HDL Cholesterol 09/25/18 09/25/18 09/25/18 11:48 15:47 16:24 WBC RDW Plt Count Seg Neuts % (Manual) Lymphocytes % (Manual) Seg Neutrophils # Man POC ABG pH POC ABG pO2 Potassium Chloride 92.2 L Carbon Dioxide 40 H D BUN 19 H Glucose 183 H POC Glucose 307 H 272 H Calcium 8.3 L Troponin T NT-Pro-B Natriuret Pep Albumin HDL Cholesterol 09/25/18 09/26/18 09/26/18 20:13 05:23 05:23 WBC 17.3 H RDW 16.5 H Plt Count 129 L Seg Neuts % (Manual) 87.0 H Lymphocytes % (Manual) 8.0 L Seg Neutrophils # Man 15.1 H POC ABG pH POC ABG pO2 Potassium 5.1 H Chloride 90.2 L Carbon Dioxide 40 H BUN 24 H Glucose 288 H POC Glucose 144 H Calcium 8.0 L Troponin T NT-Pro-B Natriuret Pep Albumin HDL Cholesterol 09/26/18 09/26/18 09/26/18 08:47 12:21 16:35 WBC RDW Plt Count Seg Neuts % (Manual) Lymphocytes % (Manual) Seg Neutrophils # Man POC ABG pH POC ABG pO2 Potassium Chloride Carbon Dioxide BUN Glucose POC Glucose 326 H 304 H 266 H Calcium Troponin T NT-Pro-B Natriuret Pep Albumin HDL Cholesterol 09/26/18 09/27/18 09/27/18 21:29 08:25 11:42 WBC RDW Plt Count Seg Neuts % (Manual) Lymphocytes % (Manual) Seg Neutrophils # Miguel POC ABG pH POC ABG pO2 Potassium Chloride Carbon Dioxide BUN Glucose POC Glucose 350 H 284 H 317 H Calcium Troponin T NT-Pro-B Natriuret Pep Albumin HDL Cholesterol 09/27/18 09/27/18 09/28/18 16:05 21:21 07:18 WBC RDW Plt Count Seg Neuts % (Manual) Lymphocytes % (Manual) Seg Neutrophils # Miguel POC ABG pH POC ABG pO2 Potassium Chloride Carbon Dioxide BUN Glucose POC Glucose 338 H 390 H 313 H Calcium Troponin T NT-Pro-B Natriuret Pep Albumin HDL Cholesterol 09/28/18 09/28/18 09/28/18 11:24 16:02 22:05 WBC RDW Plt Count Seg Neuts % (Manual) Lymphocytes % (Manual) Seg Neutrophils # Man POC ABG pH POC ABG pO2 Potassium Chloride Carbon Dioxide BUN Glucose POC Glucose 322 H 251 H 237 H Calcium Troponin T NT-Pro-B Natriuret Pep Albumin HDL Cholesterol 09/29/18 09/29/18 09/29/18 08:42 11:47 16:32 WBC RDW Plt Count Seg Neuts % (Manual) Lymphocytes % (Manual) Seg Neutrophils # Man POC ABG pH POC ABG pO2 Potassium Chloride Carbon Dioxide BUN Glucose POC Glucose 406 H 393 H 213 H Calcium Troponin T NT-Pro-B Natriuret Pep Albumin HDL Cholesterol 09/29/18 09/30/18 09/30/18 21:55 07:46 07:49 WBC RDW Plt Count Seg Neuts % (Manual) Lymphocytes % (Manual) Seg Neutrophils # Man POC ABG pH POC ABG pO2 Potassium Chloride Carbon Dioxide BUN Glucose POC Glucose 318 H > 500 H 313 H Calcium Troponin T NT-Pro-B Natriuret Pep Albumin HDL Cholesterol 09/30/18 09/30/18 09/30/18 11:33 16:25 21:16 WBC RDW Plt Count Seg Neuts % (Manual) Lymphocytes % (Manual) Seg Neutrophils # Man POC ABG pH POC ABG pO2 Potassium Chloride Carbon Dioxide BUN Glucose POC Glucose 239 H 246 H 336 H Calcium Troponin T NT-Pro-B Natriuret Pep Albumin HDL Cholesterol 10/01/18 10/01/18 10/01/18 08:00 11:33 16:16 WBC RDW Plt Count Seg Neuts % (Manual) Lymphocytes % (Manual) Seg Neutrophils # Man POC ABG pH POC ABG pO2 Potassium Chloride Carbon Dioxide BUN Glucose POC Glucose 281 H 307 H 146 H Calcium Troponin T NT-Pro-B Natriuret Pep Albumin HDL Cholesterol 10/01/18 10/02/18 10/02/18 21:05 07:16 12:14 WBC RDW Plt Count Seg Neuts % (Manual) Lymphocytes % (Manual) Seg Neutrophils # Man POC ABG pH POC ABG pO2 Potassium Chloride Carbon Dioxide BUN Glucose POC Glucose 251 H 247 H 261 H Calcium Troponin T NT-Pro-B Natriuret Pep Albumin HDL Cholesterol 10/02/18 10/02/18 10/03/18 16:13 21:39 07:32 WBC RDW Plt Count Seg Neuts % (Manual) Lymphocytes % (Manual) Seg Neutrophils # Man POC ABG pH POC ABG pO2 Potassium Chloride Carbon Dioxide BUN Glucose POC Glucose 135 H 169 H 173 H Calcium Troponin T NT-Pro-B Natriuret Pep Albumin HDL Cholesterol 10/03/18 10/03/18 10/03/18 11:32 17:23 21:03 WBC RDW Plt Count Seg Neuts % (Manual) Lymphocytes % (Manual) Seg Neutrophils # Man POC ABG pH POC ABG pO2 Potassium Chloride Carbon Dioxide BUN Glucose POC Glucose 197 H 175 H 213 H Calcium Troponin T NT-Pro-B Natriuret Pep Albumin HDL Cholesterol 10/04/18 10/04/18 10/04/18 07:45 11:37 16:21 WBC RDW Plt Count Seg Neuts % (Manual) Lymphocytes % (Manual) Seg Neutrophils # Man POC ABG pH POC ABG pO2 Potassium Chloride Carbon Dioxide BUN Glucose POC Glucose 264 H 374 H 133 H Calcium Troponin T NT-Pro-B Natriuret Pep Albumin HDL Cholesterol 10/04/18 10/05/18 10/05/18 21:59 08:40 11:25 WBC RDW Plt Count Seg Neuts % (Manual) Lymphocytes % (Manual) Seg Neutrophils # Man POC ABG pH POC ABG pO2 Potassium Chloride Carbon Dioxide BUN Glucose POC Glucose 127 H 155 H 214 H Calcium Troponin T NT-Pro-B Natriuret Pep Albumin HDL Cholesterol
--- NOTE | 2018-10-05 14:29 | Discharge Summary ---
Providers - Providers Date of Admission: 09/24/18 17:10 Date of discharge: 10/05/18 Attending physician: STEPHANIE TALLEY 09/25/18 07:14 Consult to Physician [CONS] Routine Comment: Consulting Provider: TJ BOND Physician Instructions: Reason For Exam: Resp failure 10/05/18 10:46 Consult to Mental Health [CONS] Routine Reason For Exam: Schizophrenia Place consult to:: Psych Notified:: IRVING Phone number called:: [phone] Was contact made?: Yes If yes, spoke with:: IRVING Time called:: 10:52 Comment:: NURSE IS AWARE [facility] Condition: Fair Hospital course: 48-year-old -[place] female with medical history significant for morbid obesity, chronic systolic CHF, COPD, diabetes, sleep apnea presented to the emergency department from [facility] with complaints of shortness of breath. She was seen and evaluated in the emergency department. Patient was evidenced with acute on chronic respiratory failure secondary to COPD exacerbation and CHF exacerbation. Patient was placed on BiPAP and admitted to MICU. She improved, was transferred to medical floor. Shortness of breath subsided and she was discharged back to SNF on 10/05/2018. Acute on chronic respiratory failure with Hypercarbia and hypoxia due to COPD excaerbation and CHF exacerbation NIV at night, NC during day improved COPD exacerbation - Treated with steroids and nebs, Acute exacerbation of Chronic systolic heart failure, elevated troponin - Cardiology consult appreciated, - Recommend medical management, she was diuresed, now off lasix Diabetes mellitus type 2 - cont to adjust insulins HLD - Continue statin Morbid obesity Total time spent on discharge, 32 mins Disposition: [id number] SNF [facility] - Discharge Diagnoses (1) Morbid obesity with BMI of 40.0-44.9, adult Status: Acute (2) Acute and chronic respiratory failure with hypercapnia Status: Acute (3) Acute on chronic systolic heart failure Status: Acute (4) COPD exacerbation Status: Acute (5) Dilated cardiomyopathy Status: Acute (6) GERD (gastroesophageal reflux disease) Status: Acute Qualifiers: Esophagitis presence: without esophagitis Qualified Code(s): K21.9 - Gastro-esophageal reflux disease without esophagitis Core Measure Documentation - Palliative Care Palliative Care/ Comfort Measures: Not Applicable - Core Measures Any of the following diagnoses?: heart failure - Heart Failure Discharge Requirements IVONE/ARB for LVSD if EF <40%: Yes Beta pedro at discharge: Yes Exam - Constitutional Vitals: Temp Pulse Resp BP Pulse Ox 98.2 F 94 H 18 124/105 83 L 10/05/18 11:34 10/05/18 12:08 10/05/18 12:08 10/05/18 11:34 10/05/18 11:34 Plan Activity: advance as tolerated Diet: low fat, low cholesterol, low salt, diabetic Additional Instructions: 1.Follow up with Physician at [facility] in 2-3 days. 2.Follow up with Pulmonology in 1 week. 3.Follow up with Cardiology in 1 week. 4.Continuous Oxygen by nasal cannula Follow up with: NOMAN JESUS MD [Primary Care Provider] - 3-5 Days Prescriptions: predniSONE [Deltasone] 10 mg PO .TAPER #48 tab
[2018-10-05 17:32] VITALS: BP 154/98
== END 2018-10-05 18:27 | DRG 291 ==
LOC: ED 11:16 → IMCU 17:10 → 3A 10-02 16:48
PROVIDERS: ADMIT Internal Medicine; ATTEND Internal Medicine
PROC: 4A033R1 Measurement of Arterial Saturation, Peripheral, Percutaneous Approach (ICD-10-PCS; principal; 2018-09-24)
PROC: 5A09357 Assistance with Respiratory Ventilation, Less than 24 Consecutive Hours, Continuous Positive Airway Pressure (ICD-10-PCS; 2018-09-24)
PROC: 5A09357 Assistance with Respiratory Ventilation, Less than 24 Consecutive Hours, Continuous Positive Airway Pressure (ICD-10-PCS; 2018-09-25)
PROC: 5A09357 Assistance with Respiratory Ventilation, Less than 24 Consecutive Hours, Continuous Positive Airway Pressure (ICD-10-PCS; 2018-09-26)
PROC: 5A09357 Assistance with Respiratory Ventilation, Less than 24 Consecutive Hours, Continuous Positive Airway Pressure (ICD-10-PCS; 2018-09-27)
PROC: 5A09357 Assistance with Respiratory Ventilation, Less than 24 Consecutive Hours, Continuous Positive Airway Pressure (ICD-10-PCS; 2018-09-28)
PROC: 5A09357 Assistance with Respiratory Ventilation, Less than 24 Consecutive Hours, Continuous Positive Airway Pressure (ICD-10-PCS; 2018-09-29)
PROC: 5A09357 Assistance with Respiratory Ventilation, Less than 24 Consecutive Hours, Continuous Positive Airway Pressure (ICD-10-PCS; 2018-10-02)
PROC: 5A09357 Assistance with Respiratory Ventilation, Less than 24 Consecutive Hours, Continuous Positive Airway Pressure (ICD-10-PCS; 2018-10-03)
PROC: 5A09357 Assistance with Respiratory Ventilation, Less than 24 Consecutive Hours, Continuous Positive Airway Pressure (ICD-10-PCS; 2018-10-04)
DX: I11.0 Hypertensive heart disease with heart failure (principal); J96.02 Acute respiratory failure with hypercapnia; J96.01 Acute respiratory failure with hypoxia; Z68.41 Body mass index [BMI] 40.0-44.9, adult; E66.2 Morbid (severe) obesity with alveolar hypoventilation; I50.23 Acute on chronic systolic (congestive) heart failure; I42.0 Dilated cardiomyopathy; E11.9 Type 2 diabetes mellitus without complications; J43.9 Emphysema, unspecified; I25.2 Old myocardial infarction; M19.90 Unspecified osteoarthritis, unspecified site; F03.90 Unspecified dementia, unspecified severity, without behavioral disturbance, psychotic disturbance, mood disturbance, and anxiety; R13.10 Dysphagia, unspecified; F31.9 Bipolar disorder, unspecified; E78.5 Hyperlipidemia, unspecified; Z86.711 Personal history of pulmonary embolism; Z93.0 Tracheostomy status; Z87.891 Personal history of nicotine dependence; Z79.4 Long term (current) use of insulin; Z90.710 Acquired absence of both cervix and uterus; Z79.01 Long term (current) use of anticoagulants
CPT/HCPCS: 36415; 71045; 74019; 76705; 80048; 80053; 80061; 82803; 82962; 83880; 84484; 85007; 85025; 85610; 85730; 93005; 93010; 94640; 94660; 94668; 94760; 96365; 96375; G0378; A9270-GY; J0456; J0696; J1630; J1650; J1815; J1940; J2060; J2270; J2920; J2930; J3475; J7050

== ENCOUNTER 2018-10-16 05:40 | Inpatient (IN) | payer MEDICARE ==
[2018-10-16] MEDS ORDERED: SOLU-Medrol ONE (05:47)
[2018-10-16] MEDS ORDERED: MAGNESIUM SULFATE 2GM/50ML 2 GM/50 ML BAG IV ONE ×2 (05:47→05:52)
[2018-10-16] MEDS ORDERED: SOLU-Medrol IV ONE (05:53)
[2018-10-16] MEDS ORDERED: PROVENTIL IH ONE (06:12)
[2018-10-16] MEDS ORDERED: ATROVENT IH ONE (06:12)
[2018-10-16] MEDS ORDERED: NACL 0.9% 250ML 250 ML IV ONE (06:15)
--- NOTE | 2018-10-16 06:23 | Emergency Department Report ---
ED Shortness of Breath HPI - General Chief Complaint: Dyspnea/Respdistress Stated Complaint: COPD Time Seen by Provider: 10/16/18 06:02 Source: EMS, old records reviewed Mode of arrival: Stretcher Limitations: No Limitations - History of Present Illness Initial Comments: 48-year-old female with a past medical history of Morbid obesity, type 2 diabetes, obstructive sleep apnea, chronic respiratory failure with hypoxia, CHF, hyperlipidemia, schizophrenia and bipolar disorder presents to the hospital from [facility] for altered in mental status. EMS reports a initial O2 sat of 57% on 4 L nasal cannula. On CPAP O2 sat increased to 92% in route. EMS gave albuterol 5 mg in route. The patient is lethargic and unable to provide any history of present illness follow commands. Upon previous medical record review patient was admitted here September 24 until October 05 for respiratory failure secondary to COPD and CHF requiring BiPAP support dur ing hospitalization. - Related Data Home Medications Medication Instructions Recorded Confirmed Last Taken Metformin HCl [Glucophage] 1,000 mg PO BID 03/28/18 09/24/18 Unknown Budesonide [Pulmicort Respules] 0.5 mg IH Q12HR 08/25/18 09/24/18 Unknown Insulin Detemir [Levemir VIAL] 10 units SUB-Q QHS 08/25/18 09/24/18 Unknown Insulin Regular, Human [HumuLIN R] See Protocol SUB-Q ACHS 08/25/18 09/24/18 Unknown Sorbitol 70% 30 ml PO Q12H 08/25/18 09/24/18 Unknown carBAMazepine [Carbamazepine] 200 mg PO DAILY 08/25/18 09/24/18 Unknown traZODone [Desyrel] 50 mg PO QHS 08/25/18 09/24/18 Unknown Acetaminophen [Acetaminophen TAB] 650 mg PO Q12H PRN 09/24/18 09/24/18 Unknown Aspirin EC 325 mg PO DAILY 09/24/18 09/24/18 Unknown Fluticasone [Flonase] 1 spray NS BID 09/24/18 09/24/18 Unknown Ipratropium/Albuterol Sulfate 1 ampul IH Q8HR 09/24/18 09/24/18 Unknown [DUONEB *Not for PRN Use*] LORazepam [Ativan] 0.5 mg PO DAILY 09/24/18 09/24/18 Unknown LORazepam [Ativan] 1 mg PO QHS 09/24/18 09/24/18 Unknown Loratadine [Claritin] 10 mg PO DAILY 09/24/18 09/24/18 Unknown Quetiapine Fumarate [SEROquel] 300 mg PO Q12H 09/24/18 09/24/18 Unknown Sennosides Tab [Senokot] 17.2 mg PO HS 09/24/18 09/24/18 Unknown Zolpidem [Ambien] 5 mg PO QHS PRN 09/24/18 09/24/18 Unknown buPROPion SR [Wellbutrin SR] 100 mg PO DAILY 09/24/18 09/24/18 Unknown guaiFENesin 400 mg PO BID 09/24/18 09/24/18 Unknown Previous Rx's Medication Instructions Recorded Last Taken Type AtorvaSTATin [Lipitor] 40 mg PO QHS tablet 05/25/18 Unknown Rx Carvedilol [Coreg] 6.25 mg PO BID tablet 05/25/18 Unknown Rx Famotidine [Pepcid] 20 mg PO DAILY tablet 05/25/18 Unknown Rx Isosorbide Dinitrate [Isordil 20 mg PO Q8H tablet 05/25/18 Unknown Rx Titradose] Losartan [Cozaar] 50 mg PO QDAY tablet 05/25/18 Unknown Rx Methadone [Dolophine] 5 mg PO BID tablet 05/25/18 Unknown Rx Montelukast [Singulair] 10 mg PO QHS tablet 05/25/18 Unknown Rx Polyethylene Glycol 3350 [Miralax 17 gm PO QDAY PRN powd.pack 05/25/18 Unknown Rx 3350] Spironolactone [Aldactone] 25 mg PO QDAY tablet 05/25/18 Unknown Rx hydrALAZINE [Apresoline TAB] 37.5 mg PO Q8H tablet 05/25/18 Unknown Rx predniSONE [Deltasone] 10 mg PO .TAPER #48 tab 10/04/18 Unknown Rx Allergies Allergy/AdvReac Type Severity Reaction Status Date / Time Penicillins Allergy Unknown Verified 08/24/18 22:32 Sulfa (Sulfonamide Allergy Unknown Verified 08/24/18 22:32 Antibiotics) sulfabenzamide Allergy Unknown Verified 08/24/18 22:32 ED Review of Systems ROS: Stated complaint: COPD Other details as noted in HPI Comment: Unobtainable due to pts medical conditions ED Past Medical Hx - Past Medical History Previous Medical History?: Yes Hx Hypertension: Yes Hx Heart Attack/AMI: Yes Hx Congestive Heart Failure: Yes Hx Diabetes: Yes Hx Deep Vein Thrombosis: No Hx Pulmonary Embolism: Yes Hx Liver Disease: No Hx Arthritis: Yes Hx Psychiatric Treatment: Yes (hx of schizophrenia, major depressive disorder) Hx Asthma: Yes Hx COPD: Yes Hx Dementia: Yes Hx HIV: No Additional medical history: Dysphasia. obstructive sleep apnea - Surgical History Past Surgical History?: Yes Hx Pacemaker: No Hx Internal Defibrillator: No Additional Surgical History: Partial hysterectomy. Tracheostomy - Social History Smoking Status: Unknown if ever smoked - Medications Home Medications: Home Medications Medication Instructions Recorded Confirmed Last Taken Type Metformin HCl [Glucophage] 1,000 mg PO BID 03/28/18 09/24/18 Unknown History AtorvaSTATin [Lipitor] 40 mg PO QHS tablet 05/25/18 09/24/18 Unknown Rx Carvedilol [Coreg] 6.25 mg PO BID tablet 05/25/18 09/24/18 Unknown Rx Famotidine [Pepcid] 20 mg PO DAILY tablet 05/25/18 09/24/18 Unknown Rx Isosorbide Dinitrate [Isordil 20 mg PO Q8H tablet 05/25/18 09/24/18 Unknown Rx Titradose] Losartan [Cozaar] 50 mg PO QDAY tablet 05/25/18 09/24/18 Unknown Rx Methadone [Dolophine] 5 mg PO BID tablet 05/25/18 09/24/18 Unknown Rx Montelukast [Singulair] 10 mg PO QHS tablet 05/25/18 09/24/18 Unknown Rx Polyethylene Glycol 3350 [Miralax 17 gm PO QDAY PRN powd.pack 05/25/18 09/24/18 Unknown Rx 3350] Spironolactone [Aldactone] 25 mg PO QDAY tablet 05/25/18 09/24/18 Unknown Rx hydrALAZINE [Apresoline TAB] 37.5 mg PO Q8H tablet 05/25/18 09/24/18 Unknown Rx Budesonide [Pulmicort Respules] 0.5 mg IH Q12HR 08/25/18 09/24/18 Unknown History Insulin Detemir [Levemir VIAL] 10 units SUB-Q QHS 08/25/18 09/24/18 Unknown History Insulin Regular, Human [HumuLIN R] See Protocol SUB-Q ACHS 08/25/18 09/24/18 Unknown History Sorbitol 70% 30 ml PO Q12H 08/25/18 09/24/18 Unknown History carBAMazepine [Carbamazepine] 200 mg PO DAILY 08/25/18 09/24/18 Unknown History traZODone [Desyrel] 50 mg PO QHS 08/25/18 09/24/18 Unknown History Acetaminophen [Acetaminophen TAB] 650 mg PO Q12H PRN 09/24/18 09/24/18 Unknown History Aspirin EC 325 mg PO DAILY 09/24/18 09/24/18 Unknown History Fluticasone [Flonase] 1 spray NS BID 09/24/18 09/24/18 Unknown History Ipratropium/Albuterol Sulfate 1 ampul IH Q8HR 09/24/18 09/24/18 Unknown History [DUONEB *Not for PRN Use*] LORazepam [Ativan] 0.5 mg PO DAILY 09/24/18 09/24/18 Unknown History LORazepam [Ativan] 1 mg PO QHS 09/24/18 09/24/18 Unknown History Loratadine [Claritin] 10 mg PO DAILY 09/24/18 09/24/18 Unknown History Quetiapine Fumarate [SEROquel] 300 mg PO Q12H 09/24/18 09/24/18 Unknown History Sennosides Tab [Senokot] 17.2 mg PO HS 09/24/18 09/24/18 Unknown History Zolpidem [Ambien] 5 mg PO QHS PRN 09/24/18 09/24/18 Unknown History buPROPion SR [Wellbutrin SR] 100 mg PO DAILY 09/24/18 09/24/18 Unknown History guaiFENesin 400 mg PO BID 09/24/18 09/24/18 Unknown History predniSONE [Deltasone] 10 mg PO .TAPER #48 tab 10/04/18 Unknown Rx ED Physical Exam - General Limitations: No Limitations - Other Other exam information: General: Lethargic Head exam: Atraumatic, normocephalic Eyes exam: Normal appearance, pupils equal reactive to light ENT: Moist mucous membrane Neck exam: Normal inspection Respiratory exam: Diminished breath sounds bilaterally, BiPAP in place Cardiovascular: Normal rate and rhythm Abdomen: Soft, nondistended, and nontender Extremity: Full range of motion normal inspection no deformity Back: Normal Inspection, full range of motion, no tenderness Neurologic: Lethargic, localizes pain, open her eyes to tactile stimuli Skin: Warm, dry ED Course Vital Signs 10/16/18 10/16/18 10/16/18 05:53 05:55 06:28 Pulse Rate 109 H 112 H Pulse Rate [ 107 H Bilateral Throughout] Respiratory 21 20 Rate Respiratory 20 Rate [Bilateral Throughout] Blood Pressure 107/63 Blood Pressure 107/63 [Left] O2 Sat by Pulse 95 96 Oximetry 10/16/18 10/16/18 10/16/18 06:46 07:30 08:00 Pulse Rate 105 H 93 H Pulse Rate [ Bilateral Throughout] Respiratory 22 18 17 Rate Respiratory Rate [Bilateral Throughout] Blood Pressure Blood Pressure 120/75 128/81 [Left] O2 Sat by Pulse 93 94 Oximetry 10/16/18 10/16/18 08:07 08:22 Pulse Rate 112 H 90 Pulse Rate [ Bilateral Throughout] Respiratory 24 17 Rate Respiratory Rate [Bilateral Throughout] Blood Pressure 126/78 Blood Pressure 118/87 [Left] O2 Sat by Pulse 96 94 Oximetry - Reevaluation(s) Reevaluation #1: 10/16/18 07:11 pt opens eyes and makes eye contact when her name is called. BIPAP continued. ABG repeat scheduled - ABG Interpretation Ph: [phone] PCO2: 96 PO2: 84 Bicarbonate: 35 Interpretation: respiratory acidosis Additional Comments: sat 92% on bipap FIO2 50%, 20/10 bipap changed to 26/10 (rate 24) with 50% FIO2 repeat abg 1.5 hour on bipap 7.22/81/57/33/81% Mild respiratory acidosis improved from previous ABG with worsening hypoxia Recommended respiratory therapist to Increase FiO2 and continue other bipap settings ED Medical Decision Making - Lab Data Result diagrams: 10/16/18 06:20 10/16/18 06:20 Lab Results 10/16/18 10/16/18 10/16/18 Range/Units 06:20 06:20 06:20 WBC 10.1 (4.5-11.0) K/mm3 RBC 4.19 (3.65-5.03) M/mm3 Hgb 12.4 (10.1-14.3) gm/dl Hct 40.5 (30.3-42.9) % MCV 97 (79-97) fl MCH 30 (28-32) pg MCHC 31 (30-34) % RDW 17.6 H (13.2-15.2) % Plt Count 123 L (140-440) K/mm3 Lymph % (Auto) 17.1 (13.4-35.0) % [place] % (Auto) 7.0 (0.0-7.3) % Eos % (Auto) 0.8 (0.0-4.3) % Baso % (Auto) 0.6 (0.0-1.8) % Lymph # 1.7 (1.2-5.4) K/mm3 [place] # 0.7 (0.0-0.8) K/mm3 Eos # 0.1 (0.0-0.4) K/mm3 Baso # 0.1 (0.0-0.1) K/mm3 Seg Neutrophils % 74.5 H (40.0-70.0) % Seg Neutrophils # 7.5 (1.8-7.7) K/mm3 PT 16.2 H (12.2-14.9) Sec. INR 1.34 H (0.87-1.13) APTT 25.2 (24.2-36.6) Sec. POC ABG pH (7.35-7.45) POC ABG pO2 (80-105) POC ABG HCO3 (22-26 mml/L) POC ABG Total CO2 (23-27mmol/L) POC ABG O2 Sat POC ABG Base Excess ((-2) - (+3)mmol/L) FiO2 % Sodium 139 (137-145) mmol/L Potassium 5.0 (3.6-5.0) mmol/L Chloride 98.7 (98-107) mmol/L Carbon Dioxide 31 H (22-30) mmol/L Anion Gap 14 mmol/L BUN 15 (7-17) mg/dL Creatinine 0.8 (0.7-1.2) mg/dL Estimated GFR > 60 ml/min BUN/Creatinine Ratio 19 % Glucose 179 H (65-100) mg/dL Calcium 8.8 (8.4-10.2) mg/dL Troponin T 0.071 H (0.00-0.029) ng/mL NT-Pro-B Natriuret Pep (0-450) pg/mL Triglycerides 178 H (2-149) mg/dL Cholesterol 145 (50-199) mg/dL LDL Cholesterol Direct 66 (50-130) mg/dL HDL Cholesterol 63 H (40-59) mg/dL Cholesterol/HDL Ratio 2.30 % 10/16/18 10/16/18 Range/Units 06:20 06:23 WBC (4.5-11.0) K/mm3 RBC (3.65-5.03) M/mm3 Hgb (10.1-14.3) gm/dl Hct (30.3-42.9) % MCV (79-97) fl MCH (28-32) pg MCHC (30-34) % RDW (13.2-15.2) % Plt Count (140-440) K/mm3 Lymph % (Auto) (13.4-35.0) % [place] % (Auto) (0.0-7.3) % Eos % (Auto) (0.0-4.3) % Baso % (Auto) (0.0-1.8) % Lymph # (1.2-5.4) K/mm3 [place] # (0.0-0.8) K/mm3 Eos # (0.0-0.4) K/mm3 Baso # (0.0-0.1) K/mm3 Seg Neutrophils % (40.0-70.0) % Seg Neutrophils # (1.8-7.7) K/mm3 PT (12.2-14.9) Sec. INR (0.87-1.13) APTT (24.2-36.6) Sec. POC ABG pH 7.172 L (7.35-7.45) POC ABG pO2 84 (80-105) POC ABG HCO3 35.2 (22-26 mml/L) POC ABG Total CO2 38 (23-27mmol/L) POC ABG O2 Sat 92 POC ABG Base Excess 7 ((-2) - (+3)mmol/L) FiO2 50 % Sodium (137-145) mmol/L Potassium (3.6-5.0) mmol/L Chloride (98-107) mmol/L Carbon Dioxide (22-30) mmol/L Anion Gap mmol/L BUN (7-17) mg/dL Creatinine (0.7-1.2) mg/dL Estimated GFR ml/min BUN/Creatinine Ratio % Glucose (65-100) mg/dL Calcium (8.4-10.2) mg/dL Troponin T (0.00-0.029) ng/mL NT-Pro-B Natriuret Pep 711.7 H (0-450) pg/mL Triglycerides (2-149) mg/dL Cholesterol (50-199) mg/dL LDL Cholesterol Direct (50-130) mg/dL HDL Cholesterol (40-59) mg/dL Cholesterol/HDL Ratio % - EKG Data -: EKG Interpreted by Me EKG shows normal: sinus rhythm, axis (qrs -81), QRS complexes (qrsd 86), ST-T waves (no stemi) - EKG Data When compared to previous EKG there are: no significant change - Radiology Data Radiology results: report reviewed PROCEDURE: XR CHEST 1V AP TECHNIQUE: Chest radiograph single view. HISTORY: Chest Pain COMPARISONS: 09/30/2018 . FINDINGS: The patient is rotated. No mediastinal shift. Cardiac silhouette is not enlarged. Ill-defined bibasilar opacities. No pneumothorax or definite effusion. No acute skeletal findings. IMPRESSION: Bibasilar opacities may be due to atelectasis, scarring or infection. - Medical Decision Making co2 retention and hypoxia requiring bibap (baseline co2 is in the low 70's as per previous abg results) chronic elevated trop no acute ekg changes cxr read with broad differential to include atelectasis versus scarring versus infiltrate. Patient does not have leukocytosis or fever treated with albuterol, atrovent, mag, and solumedrol pt to be admitted to ICU, sales and service associate consult ordered Hospitalist informed permission repeat abg shows improving resp acidosis mental status also improving and pt becoming more alert will continue bipap, pt does not need intibation at this time - Differential Diagnosis CO2 retention, respiratory failure, CHF Critical Care Time: Yes Critical care time in (mins) excluding proc time.: 35 Critical care attestation.: If time is entered above; I have spent that time in minutes in the direct care o f this critically ill patient, excluding procedure time. ED Disposition Clinical Impression: Hypercapnic respiratory failure, Sleep apnea syndrome, Morbid obesity with BMI of 45.0-49.9, adult, Hypoxia Disposition: -09 OP ADMIT IP TO THIS HOSP Is pt being admited?: Yes Condition: Stable Time of Disposition: 07:15 (Hosptialist to admit)
--- NOTE | 2018-10-16 06:37 | XRay Report ---
PROCEDURE: XR CHEST 1V AP TECHNIQUE: Chest radiograph single view. HISTORY: Chest Pain COMPARISONS: 09/30/2018 . FINDINGS: The patient is rotated. No mediastinal shift. Cardiac silhouette is not enlarged. Ill-defined bibasil ar opacities. No pneumothorax or definite effusion. No acute skeletal findings. IMPRESSION: Bibasilar opacities may be due to atelectasis, scarring or infection. This document is electronically signed by Mango Hernandez MD., October 16 2018 06:35:31 AM ET
[2018-10-16 06:51] LABS: Basophils # (Auto) 0.1 K/mm3 (0.0-0.1); Basophils % (Auto) 0.6 % (0.0-1.8); Eosinophils # (Auto) 0.1 K/mm3 (0.0-0.4); Eosinophils % (Auto) 0.8 % (0.0-4.3); Lymphocytes # (Auto) 1.7 K/mm3 (1.2-5.4); Lymphocytes % (Auto) 17.1 % (13.4-35.0); Mean Corpuscular HGB Conc 31 % (30-34); Mean Corpuscular Volume 97 fl (79-97); Monocytes # (Auto) 0.7 K/mm3 (0.0-0.8); Platelet Count 123 K/mm3 (140-440); Red Blood Count 4.19 M/mm3 (3.65-5.03); Red Cell Distribution Width 17.6 % (13.2-15.2)
[2018-10-16 06:54] LABS: Hematocrit 40.5 % (30.3-42.9); Hemoglobin 12.4 gm/dl (10.1-14.3)
[2018-10-16 07:01] LABS: INR 1.34 (0.87-1.13)
[2018-10-16 07:06] LABS: BUN/Creatinine Ratio 19; Blood Urea Nitrogen 15 mg/dL (7-17); Calcium 8.8 mg/dL (8.4-10.2); Hemolysis Index 92
[2018-10-16 07:10] LABS: Partial Thromboplastin Time 25.2 Sec. (24.2-36.6)
[2018-10-16 07:48] LABS: HDL Cholesterol 63 mg/dL (40-59); LDL Cholesterol,Direct 66 mg/dL (50-130)
[2018-10-16] MEDS ORDERED: PROVENTIL IH PRN (08:21)
[2018-10-16] MEDS ORDERED: D50W (25GM) Syringe IV PRN ×2 (08:21→08:29)
[2018-10-16] MEDS ORDERED: SODIUM CHLORIDE FLUSH SYRINGE 10 ML IV PRN (08:21)
[2018-10-16] MEDS ORDERED: MIRALAX 3350 PO PRN (08:23)
--- NOTE | 2018-10-16 08:27 | History and Physical Report ---
History of Present Illness Date of examination: 10/16/18 Date of admission: 10/16/18 Chief complaint: Shortness of breath with altered mental status History of present illness: Patient is a 48-year-old -[place] female with medical history significant for morbid obesity, chronic systolic CHF, COPD, diabetes, sleep apnea presented to the emergency department from [facility] with complaints of shortness of breath and AMS. Per documentation from facility patient was noted to have change in mental status and oxygen saturation was noted in the 50s. She was transported to the ED via EMS on CPAP. Patient is unable to provide adequate information and much information is obtained from the chart. Present review of chart shows similar presentation recently and at the time it was not sure the patient was complaint with the CPAP. On arrival here patient was noted to have a co2 of over 90 and improving to 81 with BIPAP, with some noted improvement in mental status slightly. It also appears from general review that her baseline CO2 is in the 70s. ROS: Unable to obtain due medical condition. Past History Past Medical History: CAD, COPD, diabetes, hypertension, hyperlipidemia Past Surgical History: No surgical history Social history: full code, other (UNABLE TO OBTAIN) Family history: no significant family history Medications and Allergies Allergies Allergy/AdvReac Type Severity Reaction Status Date / Time Penicillins Allergy Unknown Verified 08/24/18 22:32 Sulfa (Sulfonamide Allergy Unknown Verified 08/24/18 22:32 Antibiotics) sulfabenzamide Allergy Unknown Verified 08/24/18 22:32 Home Medications Medication Instructions Recorded Confirmed Last Taken Type Metformin HCl [Glucophage] 1,000 mg PO BID 03/28/18 09/24/18 Unknown History AtorvaSTATin [Lipitor] 40 mg PO QHS tablet 05/25/18 09/24/18 Unknown Rx Carvedilol [Coreg] 6.25 mg PO BID tablet 05/25/18 09/24/18 Unknown Rx Famotidine [Pepcid] 20 mg PO DAILY tablet 05/25/18 09/24/18 Unknown Rx Isosorbide Dinitrate [Isordil 20 mg PO Q8H tablet 05/25/18 09/24/18 Unknown Rx Titradose] Losartan [Cozaar] 50 mg PO QDAY tablet 05/25/18 09/24/18 Unknown Rx Methadone [Dolophine] 5 mg PO BID tablet 05/25/18 09/24/18 Unknown Rx Montelukast [Singulair] 10 mg PO QHS tablet 05/25/18 09/24/18 Unknown Rx Polyethylene Glycol 3350 [Miralax 17 gm PO QDAY PRN powd.pack 05/25/18 09/24/18 Unknown Rx 3350] Spironolactone [Aldactone] 25 mg PO QDAY tablet 05/25/18 09/24/18 Unknown Rx hydrALAZINE [Apresoline TAB] 37.5 mg PO Q8H tablet 05/25/18 09/24/18 Unknown Rx Budesonide [Pulmicort Respules] 0.5 mg IH Q12HR 08/25/18 09/24/18 Unknown History Insulin Detemir [Levemir VIAL] 10 units SUB-Q QHS 08/25/18 09/24/18 Unknown History Insulin Regular, Human [HumuLIN R] See Protocol SUB-Q ACHS 08/25/18 09/24/18 Unknown History Sorbitol 70% 30 ml PO Q12H 08/25/18 09/24/18 Unknown History carBAMazepine [Carbamazepine] 200 mg PO DAILY 08/25/18 09/24/18 Unknown History traZODone [Desyrel] 50 mg PO QHS 08/25/18 09/24/18 Unknown History Acetaminophen [Acetaminophen TAB] 650 mg PO Q12H PRN 09/24/18 09/24/18 Unknown History Aspirin EC 325 mg PO DAILY 09/24/18 09/24/18 Unknown History Fluticasone [Flonase] 1 spray NS BID 09/24/18 09/24/18 Unknown History Ipratropium/Albuterol Sulfate 1 ampul IH Q8HR 09/24/18 09/24/18 Unknown History [DUONEB *Not for PRN Use*] LORazepam [Ativan] 0.5 mg PO DAILY 09/24/18 09/24/18 Unknown History LORazepam [Ativan] 1 mg PO QHS 09/24/18 09/24/18 Unknown History Loratadine [Claritin] 10 mg PO DAILY 09/24/18 09/24/18 Unknown History Quetiapine Fumarate [SEROquel] 300 mg PO Q12H 09/24/18 09/24/18 Unknown History Sennosides Tab [Senokot] 17.2 mg PO HS 09/24/18 09/24/18 Unknown History Zolpidem [Ambien] 5 mg PO QHS PRN 09/24/18 09/24/18 Unknown History buPROPion SR [Wellbutrin SR] 100 mg PO DAILY 09/24/18 09/24/18 Unknown History guaiFENesin 400 mg PO BID 09/24/18 09/24/18 Unknown History predniSONE [Deltasone] 10 mg PO .TAPER #48 tab 10/04/18 Unknown Rx Active Meds: Active Medications Albuterol (Proventil) 2.5 mg IH Q3HRT PRN PRN Reason: Shortness Of Breath Albuterol/Ipratropium (Duoneb *Not For Prn Use*) 1 ampul IH Q6HRT JOE Albuterol/Ipratropium (Duoneb *Not For Prn Use*) 1 ampul IH Q8HR JOE Aspirin (Ecotrin) 325 mg PO DAILY [facility] Atorvastatin Calcium (Lipitor) 40 mg PO QHS JOE Budesonide (Pulmicort) 0.5 mg IH Q12HRT JOE Bupropion HCl (Wellbutrin Sr) 100 mg PO DAILY [facility] Carbamazepine (Tegretol) 200 mg PO DAILY [facility] [place] Dextrose (D50w (25gm) Syringe) 50 ml IV PRN PRN PRN Reason: Hypoglycemia Famotidine (Pepcid) 20 mg PO DAILY [facility] [place] Fluticasone Propionate (Flonase) 50 mcg NS BID [facility] Hydralazine HCl (Apresoline) 37.5 mg PO Q8H [facility] Isosorbide Dinitrate (Isordil Titradose) 20 mg PO Q8H [facility] Loratadine (Claritin) 10 mg PO DAILY [facility] [place] Lorazepam (Ativan) 0.5 mg PO DAILY [facility] Losartan Potassium (Cozaar) 50 mg PO QDAY JOE Methadone HCl (Dolophine) 5 mg PO BID [facility] [place] Miscellaneous Medication (Insulin Detemir [Levemir Vial]) 10 units SUB-Q QHS [facility] Miscellaneous Medication (Quetiapine Fumarate [Seroquel]) 300 mg PO Q12H JOE Montelukast Sodium (Singulair) 10 mg PO QHS [facility] [place] Polyethylene Glycol (Miralax 3350) 17 gm PO QDAY PRN PRN Reason: Constipation Prednisone (Deltasone) 10 mg PO .TAPER JOE Senna (Senokot) 17.2 mg PO HS JOE Sodium Chloride (Sodium Chloride Flush Syringe 10 Ml) 10 ml IV BID JOE Sodium Chloride (Sodium Chloride Flush Syringe 10 Ml) 10 ml IV PRN PRN PRN Reason: LINE FLUSH Exam - Constitutional Vitals: Temp Pulse Resp BP Pulse Ox 112 H 24 126/78 96 10/16/18 08:07 10/16/18 08:07 10/16/18 08:07 10/16/18 08:07 General appearance: Present: severe distress, obese - EENT Eyes: Present: PERRL, EOM intact ENT: hearing intact, clear oral mucosa - Neck Neck: Present: supple, normal ROM - Respiratory Respiratory effort: normal Respiratory: bilateral: diminished - Cardiovascular Rhythm: regular Heart Sounds: Present: S1 & S2 - Extremities Extremities: no ischemia, pulses intact, pulses symmetrical, No edema, normal temperature, normal color, Full ROM Peripheral Pulses: within normal limits - Abdominal General gastrointestinal: Present: soft, non-tender, distended, normal bowel sounds - Integumentary Integumentary: Present: clear, warm - Musculoskeletal Musculoskeletal: strength equal bilaterally - Psychiatric Psychiatric: other (UNABLE TO ASSESS) - Neurologic Neurologic: CNII-XII intact, moves all extremities - Allied Health Allied health notes reviewed: nursing Results - Labs CBC & Chem 7: 10/16/18 06:20 10/16/18 06:20 Labs: Laboratory Last Values WBC 10.1 K/mm3 (4.5-11.0) 10/16/18 06:20 RBC 4.19 M/mm3 (3.65-5.03) 10/16/18 06:20 Hgb 12.4 gm/dl (10.1-14.3) 10/16/18 06:20 Hct 40.5 % (30.3-42.9) 10/16/18 06:20 MCV 97 fl (79-97) 10/16/18 06:20 MCH 30 pg (28-32) 10/16/18 06:20 MCHC 31 % (30-34) 10/16/18 06:20 RDW 17.6 % (13.2-15.2) H 10/16/18 06:20 Plt Count 123 K/mm3 (140-440) L 10/16/18 06:20 Lymph % (Auto) 17.1 % (13.4-35.0) 10/16/18 06:20 Slope % (Auto) 7.0 % (0.0-7.3) 10/16/18 06:20 Eos % (Auto) 0.8 % (0.0-4.3) 10/16/18 06:20 Baso % (Auto) 0.6 % (0.0-1.8) 10/16/18 06:20 Lymph # 1.7 K/mm3 (1.2-5.4) 10/16/18 06:20 Slope # 0.7 K/mm3 (0.0-0.8) 10/16/18 06:20 Eos # 0.1 K/mm3 (0.0-0.4) 10/16/18 06:20 Baso # 0.1 K/mm3 (0.0-0.1) 10/16/18 06:20 Seg Neutrophils % 74.5 % (40.0-70.0) H 10/16/18 06:20 Seg Neutrophils # 7.5 K/mm3 (1.8-7.7) 10/16/18 06:20 PT 16.2 Sec. (12.2-14.9) H 10/16/18 06:20 INR 1.34 (0.87-1.13) H 10/16/18 06:20 APTT 25.2 Sec. (24.2-36.6) 10/16/18 06:20 POC ABG pH 7.172 (7.35-7.45) L 10/16/18 06:23 POC ABG pO2 84 (80-105) 10/16/18 06:23 POC ABG HCO3 35.2 (22-26 mml/L) 10/16/18 06:23 POC ABG Total CO2 38 (23-27mmol/L) 10/16/18 06:23 POC ABG O2 Sat 92 10/16/18 06:23 POC ABG Base Excess 7 ((-2) - (+3)mmol/L) 10/16/18 06:23 50 % 10/16/18 06:23 Sodium 139 mmol/L (137-145) 10/16/18 06:20 Potassium 5.0 mmol/L (3.6-5.0) 10/16/18 06:20 Chloride 98.7 mmol/L (98-107) 10/16/18 06:20 Carbon Dioxide 31 mmol/L (22-30) H 10/16/18 06:20 14 mmol/L 10/16/18 06:20 BUN 15 mg/dL (7-17) 10/16/18 06:20 0.8 mg/dL (0.7-1.2) 10/16/18 06:20 Estimated GFR > 60 ml/min 10/16/18 06:20 19 % 10/16/18 06:20 Glucose 179 mg/dL (65-100) H 10/16/18 06:20 Calcium 8.8 mg/dL (8.4-10.2) 10/16/18 06:20 0.071 ng/mL (0.00-0.029) H 10/16/18 06:20 NT-Pro-B Natriuret Pep 711.7 pg/mL (0-450) H 10/16/18 06:20 Triglycerides 178 mg/dL (2-149) H 10/16/18 06:20 Cholesterol 145 mg/dL (50-199) 10/16/18 06:20 66 mg/dL (50-130) 10/16/18 06:20 63 mg/dL (40-59) H 10/16/18 06:20 2.30 % 10/16/18 06:20 Assessment and Plan Assessment and plan: Patient is a 48-year-old -[place] female with medical history significant for morbid obesity, chronic systolic CHF, COPD, diabetes, sleep apnea presented to the emergency department from [facility] with complaints of shortness of breath and AMS. Per documentation from facility patient was noted to have change in mental status and oxygen saturation was noted in the 50s. She was transported to the ED via EMS on CPAP. Patient is unable to provide adequate information and much information is obtained from the chart. Present review of chart shows similar presentation recently and at the time it was not sure the patient was complaint with the CPAP. On arrival here patient was noted to have a co2 of over 90 and improving to 81 with BIPAP, with some noted improvement in mental status slightly. It also appears from general review that her baseline CO2 is in the 70s. PRIOR IMAGING ABDOMINAL US- MEDICAL RENAL DISEASE CXR: Bibasilar opacities may be due to atelectasis, scarring or infection Acute on chronic respiratory failure with Hypercarbia and hypoxia due to COPD excaerbation and CHF exacerbation Admitted to ICU, will change to IMCU as patient is improving Pulmonary consulted Nebs and steroids as ordered Try to obtain accurate information [place] facility COPD exacerbation - Treated with steroids and nebs, Acute exacerbation of Chronic systolic heart failure, elevated troponin - Cardiology consult appreciated, - Recommend medical management, she was diuresed, now off lasix Diabetes mellitus type 2 with hyperglycemia - cont to adjust insulins HLD - Continue statin NSTEMI type 2 Morbid obesity Depression Dilated cardiomyopathy GERD (gastroesophageal reflux disease) Secondary Hypercoagbale state The high probability of a clinically significant, sudden or life threatening deterioration of the [PULOMARY] system(s) required my full and direct attention, intervention and personal management. The aggregate critical care time was [75] minutes. This time is in addition to time spent performing reported procedures but includes the following: [X] Data Review and interpretation [X] Patient assessment and monitoring of vital signs [X] Documentation [X] Medication orders and management Advance Directives: Yes Plan of care discussed with patient/family: Yes
[2018-10-16] MEDS ORDERED: NON-FORMULARY (Quetiapine Fumarate [Seroquel] 300 MG) PO SCH (08:30)
[2018-10-16] MEDS ORDERED: DELTASONE PO SCH (09:00)
[2018-10-16] MEDS: APRESOLINE PO SCH ×2 (09:37→16:26)
[2018-10-16] MEDS: ISORDIL TITRADOSE PO SCH ×2 (09:38→16:25)
[2018-10-16] MEDS: SORBITOL 70% PO SCH (09:39)
[2018-10-16] MEDS: COZAAR PO SCH (10:55)
[2018-10-16] MEDS: DOLOPHINE PO SCH (10:56)
[2018-10-16] MEDS: PEPCID PO SCH (10:56)
[2018-10-16] MEDS: ALDACTONE PO SCH (10:56)
[2018-10-16] MEDS: ECOTRIN PO SCH (10:56)
[2018-10-16] MEDS: ATIVAN PO SCH (10:56)
[2018-10-16] MEDS: SODIUM CHLORIDE FLUSH SYRINGE 10 ML IV SCH ×2 (10:57→21:28)
[2018-10-16] MEDS: CLARITIN PO SCH (10:57)
[2018-10-16] MEDS: COREG PO SCH ×2 (10:58→21:33)
[2018-10-16] MEDS: WELLBUTRIN SR PO SCH (11:07)
[2018-10-16] MEDS: HumaLOG SUB-Q SCH ×2 (12:42→17:06)
[2018-10-16] MEDS: FLONASE NS SCH (12:42)
[2018-10-16] MEDS: SOLU-Medrol IV SCH ×2 (13:45→21:27)
[2018-10-16] MEDS ORDERED: DUONEB *Not for PRN Use IH SCH (14:00)
[2018-10-16] MEDS: DUONEB *Not for PRN Use IH SCH ×2 (17:28→20:02)
[2018-10-16] MEDS: TYLENOL PO PRN (18:20)
[2018-10-16] MEDS: PULMICORT IH SCH (20:02)
[2018-10-16] MEDS: SINGULAIR PO SCH (21:33)
[2018-10-16] MEDS ORDERED: INSULIN DETEMIR 10 UNIT SUB-Q SCH (22:00)
[2018-10-17] MEDS: HumaLOG SUB-Q SCH ×4 (00:22→18:12)
[2018-10-17] MEDS: LANTUS SUB-Q SCH (00:23)
[2018-10-17] MEDS: DESYREL PO SCH ×2 (00:39→22:23)
[2018-10-17] MEDS: SENOKOT PO SCH ×2 (00:40→22:25)
[2018-10-17] MEDS: DOLOPHINE PO SCH ×3 (00:40→22:23)
[2018-10-17] MEDS: SORBITOL 70% PO SCH ×3 (00:43→21:13)
[2018-10-17] MEDS: APRESOLINE PO SCH ×3 (00:57→18:09)
[2018-10-17] MEDS: ISORDIL TITRADOSE PO SCH ×3 (00:57→18:10)
[2018-10-17] MEDS: DUONEB *Not for PRN Use IH SCH ×4 (01:08→19:32)
[2018-10-17] MEDS: TYLENOL PO PRN ×2 (03:20→18:14)
[2018-10-17] MEDS: SOLU-Medrol IV SCH ×3 (05:09→22:26)
[2018-10-17 06:22] LABS: BUN/Creatinine Ratio 27; Blood Urea Nitrogen 19 mg/dL (7-17); Calcium 8.6 mg/dL (8.4-10.2); Hemolysis Index 25
[2018-10-17 06:37] LABS: Hematocrit 39.4 % (30.3-42.9); Hemoglobin 12.3 gm/dl (10.1-14.3); Mean Corpuscular HGB Conc 31 % (30-34); Mean Corpuscular Volume 97 fl (79-97); Platelet Count 125 K/mm3 (140-440); Red Blood Count 4.07 M/mm3 (3.65-5.03); Red Cell Distribution Width 17.4 % (13.2-15.2)
[2018-10-17] MEDS: PULMICORT IH SCH ×2 (07:53→19:32)
--- NOTE | 2018-10-17 09:36 | Consultation ---
History of Present Illness Consult date: 10/17/18 Requesting physician: MARY BLANKENSHIP History of present illness: Patient is a 48-year-old -Marshallese female with medical history significant for morbid obesity, chronic systolic CHF, COPD, diabetes, sleep apnea presented to the emergency department from [facility] with complaints of shortness of breath and AMS. Per documentation from facility patient was noted to have change in mental status and oxygen saturation was noted in the 50s. She was transported to the ED via EMS on CPAP. Patient is unable to provide adequate information and much information is obtained from the chart. Present review of chart shows similar presentation recently and at the time it was not sure the patient was complaint with the CPAP. On arrival here patient was noted to have a co2 of over 90 and improving to 81 with BIPAP, with some noted improvement in mental status slightly. It also appears from general review that her baseline CO2 is in the 70s. I have been consulted for acute on chronic respiratory failure Patient was seen and examined. remains on NIPPV with a plan to transition to HFNC, vapotherm, this morning. Vitals, labs, medications, chart and imaging reviewed. Past History Past Medical History: CAD, COPD, diabetes, hypertension, hyperlipidemia Past Surgical History: No surgical history Social history: full code, other (UNABLE TO OBTAIN) Family history: no significant family history Medications and Allergies Allergies Allergy/AdvReac Type Severity Reaction Status Date / Time Penicillins Allergy Unknown Verified 08/24/18 22:32 Sulfa (Sulfonamide Allergy Unknown Verified 08/24/18 22:32 Antibiotics) sulfabenzamide Allergy Unknown Verified 08/24/18 22:32 Home Medications Medication Instructions Recorded Confirmed Last Taken Type Metformin HCl [Glucophage] 1,000 mg PO BID 03/28/18 10/16/18 Unknown History AtorvaSTATin [Lipitor] 40 mg PO QHS tablet 05/25/18 10/16/18 Unknown Rx Carvedilol [Coreg] 6.25 mg PO BID tablet 05/25/18 10/16/18 Unknown Rx Famotidine [Pepcid] 20 mg PO DAILY tablet 05/25/18 10/16/18 Unknown Rx Isosorbide Dinitrate [Isordil 20 mg PO Q8H tablet 05/25/18 10/16/18 Unknown Rx Titradose] Losartan [Cozaar] 50 mg PO QDAY tablet 05/25/18 10/16/18 Unknown Rx Methadone [Dolophine] 5 mg PO BID tablet 05/25/18 10/16/18 Unknown Rx Montelukast [Singulair] 10 mg PO QHS tablet 05/25/18 10/16/18 Unknown Rx Polyethylene Glycol 3350 [Miralax 17 gm PO QDAY PRN powd.pack 05/25/18 10/16/18 Unknown Rx 3350] Spironolactone [Aldactone] 25 mg PO QDAY tablet 05/25/18 10/16/18 Unknown Rx hydrALAZINE [Apresoline TAB] 37.5 mg PO Q8H tablet 05/25/18 10/16/18 Unknown Rx Budesonide [Pulmicort Respules] 0.5 mg IH Q12HR 08/25/18 10/16/18 Unknown History Insulin Detemir [Levemir VIAL] 10 units SUB-Q QHS 08/25/18 10/16/18 Unknown History Insulin Regular, Human [HumuLIN R] See Protocol SUB-Q ACHS 08/25/18 10/16/18 Unknown History Sorbitol 70% 30 ml PO Q12H 08/25/18 10/16/18 Unknown History carBAMazepine [Carbamazepine] 200 mg PO DAILY 08/25/18 10/16/18 Unknown History traZODone [Desyrel] 50 mg PO QHS 08/25/18 10/16/18 Unknown History Acetaminophen [Acetaminophen TAB] 650 mg PO Q12H PRN 09/24/18 10/16/18 Unknown History Aspirin EC 325 mg PO DAILY 09/24/18 10/16/18 Unknown History Fluticasone [Flonase] 1 spray NS BID 09/24/18 10/16/18 Unknown History Ipratropium/Albuterol Sulfate 1 ampul IH Q8HR 09/24/18 10/16/18 Unknown History [DUONEB *Not for PRN Use*] LORazepam [Ativan] 0.5 mg PO DAILY 09/24/18 10/16/18 Unknown History LORazepam [Ativan] 1 mg PO QHS 09/24/18 10/16/18 Unknown History Loratadine [Claritin] 10 mg PO DAILY 09/24/18 10/16/18 Unknown History Quetiapine Fumarate [SEROquel] 300 mg PO Q12H 09/24/18 10/16/18 Unknown History Sennosides Tab [Senokot] 17.2 mg PO HS 09/24/18 10/16/18 Unknown History Zolpidem [Ambien] 5 mg PO QHS PRN 09/24/18 10/16/18 Unknown History buPROPion SR [Wellbutrin SR] 100 mg PO DAILY 09/24/18 10/16/18 Unknown History guaiFENesin 400 mg PO BID 09/24/18 10/16/18 Unknown History predniSONE [Deltasone] 10 mg PO .TAPER #48 tab 10/04/18 10/16/18 Unknown Rx Active Meds: Active Medications Acetaminophen (Tylenol) 650 mg PO Q6H PRN PRN Reason: Pain, Mild (1-3) Last Admin: 10/17/18 03:20 Dose: 650 mg Documented by: Albuterol (Proventil) 2.5 mg IH Q3HRT PRN PRN Reason: Shortness Of Breath Albuterol/Ipratropium (Duoneb *Not For Prn Use*) 1 ampul IH Q6HRT [facility] Last Admin: 10/17/18 07:53 Dose: 1 ampul Documented by: Aspirin (Ecotrin) 325 mg PO DAILY [facility] Last Admin: 10/16/18 10:56 Dose: 325 mg Documented by: Atorvastatin Calcium (Lipitor) 40 mg PO QHS [facility] Last Admin: 10/17/18 00:39 Dose: 40 mg Documented by: Budesonide (Pulmicort) 0.5 mg IH Q12HRT [facility] Last Admin: 10/17/18 07:53 Dose: 0.5 mg Documented by: Bupropion HCl (Wellbutrin Sr) 100 mg PO DAILY [facility] Last Admin: 10/16/18 11:07 Dose: 100 mg Documented by: Carbamazepine (Tegretol) 200 mg PO DAILY [facility] Last Admin: 10/16/18 11:07 Dose: 200 mg Documented by: Carvedilol (Coreg) 6.25 mg PO BID [facility] Last Admin: 10/16/18 21:33 Dose: 6.25 mg Documented by: Dextrose (D50w (25gm) Syringe) 50 ml IV PRN PRN PRN Reason: Hypoglycemia Famotidine (Pepcid) 20 mg PO DAILY [facility] Last Admin: 10/16/18 10:56 Dose: 20 mg Documented by: Fluticasone Propionate (Flonase) 50 mcg NS DAILY [facility] Last Admin: 10/16/18 12:42 Dose: Not Given Documented by: Hydralazine HCl (Apresoline) 37.5 mg PO Q8H [facility] Last Admin: 10/17/18 00:57 Dose: 37.5 mg Documented by: Insulin Glargine (Lantus) 10 units SUB-Q QHS [facility] Last Admin: 10/17/18 00:23 Dose: 10 units Documented by: Insulin Human Lispro (Humalog) 0 unit SUB-Q Q6HR [facility]; Protocol Last Admin: 10/17/18 06:07 Dose: 4 unit Documented by: Isosorbide Dinitrate (Isordil Titradose) 20 mg PO Q8H [facility] Last Admin: 10/17/18 00:57 Dose: 20 mg Documented by: Loratadine (Claritin) 10 mg PO DAILY [facility] Last Admin: 10/16/18 10:57 Dose: 10 mg Documented by: Lorazepam (Ativan) 0.5 mg PO DAILY [facility] Last Admin: 10/16/18 10:56 Dose: 0.5 mg Documented by: Losartan Potassium (Cozaar) 50 mg PO QDAY [facility] Last Admin: 10/16/18 10:55 Dose: 50 mg Documented by: Methadone HCl (Dolophine) 5 mg PO BID [facility] Last Admin: 10/17/18 00:40 Dose: 5 mg Documented by: Methylprednisolone Sodium Succinate (Solu-Medrol) 80 mg IV Q8HR [facility] Last Admin: 10/17/18 05:09 Dose: 80 mg Documented by: Montelukast Sodium (Singulair) 10 mg PO QHS [facility] Last Admin: 10/16/18 21:33 Dose: 10 mg Documented by: Polyethylene Glycol (Miralax 3350) 17 gm PO QDAY PRN PRN Reason: Constipation Quetiapine Fumarate (Seroquel) 300 mg PO BID [facility] Last Admin: 10/17/18 00:41 Dose: 300 mg Documented by: Senna (Senokot) 17.2 mg PO [facility] Last Admin: 10/17/18 00:40 Dose: 17.2 mg Documented by: Sodium Chloride (Sodium Chloride Flush Syringe 10 Ml) 10 ml IV BID [facility] Last Admin: 10/16/18 21:28 Dose: 10 ml Documented by: Sodium Chloride (Sodium Chloride Flush Syringe 10 Ml) 10 ml IV PRN PRN PRN Reason: LINE FLUSH Sorbitol (Sorbitol 70%) 30 ml PO Q12H [facility] Last Admin: 10/17/18 00:43 Dose: 30 ml Documented by: Spironolactone (Aldactone) 25 mg PO QDAY [facility] Last Admin: 10/16/18 10:56 Dose: 25 mg Documented by: Trazodone HCl (Desyrel) 50 mg PO QHS [facility] Last Admin: 10/17/18 00:39 Dose: 50 mg Documented by: Review of Systems ROS unobtainable: due to mental status Physical Examination Vital signs: Vital Signs Pulse Resp BP Pulse Ox 109 H 21 107/63 95 10/16/18 05:53 10/16/18 05:53 10/16/18 05:53 10/16/18 05:53 General appearance: Present: severe distress, obese - EENT Eyes: Present: PERRL, EOM intact ENT: hearing intact, clear oral mucosa - Neck Neck: Present: supple, normal ROM - Respiratory Respiratory effort: normal Respiratory: bilateral: diminished - Cardiovascular Rhythm: regular Heart Sounds: Present: S1 & S2 - Extremities Extremities: no ischemia, pulses intact, pulses symmetrical, No edema, normal temperature, normal color, Full ROM Peripheral Pulses: within normal limits - Abdominal General gastrointestinal: Present: soft, non-tender, distended, normal bowel sounds - Integumentary Integumentary: Present: clear, warm - Musculoskeletal Musculoskeletal: strength equal bilaterally - Psychiatric Psychiatric: other (UNABLE TO ASSESS) - Neurologic Neurologic: CNII-XII intact, moves all extremities - Allied Health Allied health notes reviewed: nursing Results - Laboratory Findings CBC and BMP: 10/20/18 05:15 10/20/18 05:15 ABG POC ABG pH 7.223 (7.35-7.45) L 10/16/18 08:02 POC ABG pO2 57 (80-105) L 10/16/18 08:02 POC ABG HCO3 33.4 (22-26 mml/L) 10/16/18 08:02 POC ABG Total CO2 36 (23-27mmol/L) 10/16/18 08:02 POC ABG O2 Sat 81 10/16/18 08:02 PT/INR, D-dimer PT 16.2 Sec. (12.2-14.9) H 10/16/18 06:20 INR 1.34 (0.87-1.13) H 10/16/18 06:20 Abnormal lab findings: Abnormal Labs 10/16/18 10/16/18 10/16/18 06:20 06:20 06:20 RDW 17.6 H Plt Count 123 L Seg Neutrophils % 74.5 H PT 16.2 H INR 1.34 H POC ABG pH POC ABG pO2 Potassium Carbon Dioxide 31 H BUN Glucose 179 H POC Glucose Troponin T 0.071 H NT-Pro-B Natriuret Pep Triglycerides 178 H HDL Cholesterol 63 H 10/16/18 10/16/18 10/16/18 06:20 06:23 08:02 RDW Plt Count Seg Neutrophils % PT INR POC ABG pH 7.172 L 7.223 L POC ABG pO2 57 L Potassium Carbon Dioxide BUN Glucose POC Glucose Troponin T NT-Pro-B Natriuret Pep 711.7 H Triglycerides HDL Cholesterol 10/16/18 10/16/18 10/16/18 09:18 12:09 14:45 RDW Plt Count Seg Neutrophils % PT INR POC ABG pH POC ABG pO2 Potassium Carbon Dioxide BUN Glucose POC Glucose 235 H Troponin T 0.059 H 0.045 H D NT-Pro-B Natriuret Pep Triglycerides HDL Cholesterol 10/16/18 10/17/18 10/17/18 17:05 00:18 04:58 RDW 17.4 H Plt Count 125 L Seg Neutrophils % PT INR POC ABG pH POC ABG pO2 Potassium Carbon Dioxide BUN Glucose POC Glucose 184 H 191 H Troponin T NT-Pro-B Natriuret Pep Triglycerides HDL Cholesterol 10/17/18 10/17/18 04:58 06:04 RDW Plt Count Seg Neutrophils % PT INR POC ABG pH POC ABG pO2 Potassium 5.3 H Carbon Dioxide BUN 19 H Glucose 255 H POC Glucose 255 H Troponin T NT-Pro-B Natriuret Pep Triglycerides HDL Cholesterol - Diagnostic Findings Chest x-ray: image reviewed (No acute pulmonary infiltrates) Assessment and Plan Acute on chronic hypoxemic hypercapnic respiratory failure. Acute COPD exacerbation Acute on chronic systolic CHF exacerbation, non-ischemic NSTEMI Psychizoaffective disorder Elevated D-dimer. Obstructive sleep apnea. History of hypertension. History of bipolar disorder. Tobacco use disorder. - NIPPV QHS and q4h -ABG now -Oxygen restrictive strategies -Keep oxygen saturations at 88-90% -Bronchodilators -Aspiration precautions, hold off on oral feeding until she is fully awake -Steroids -Monitor off antibiotics for now- not clinically indicated -Accucheck with glycemic control while on steroids -Resume chronic home medications - VTE and stress ulcer prophylaxis - Gentle diuresis while monitoring renal function, hemodynamics and electrolyte profile - Continue empiric antibiotics to complete course -SSI for glycemic control with target blood glucose <180mg/dL -Cardio-protective measures -Maintenance of sleep-wake cycle, avoid further delirium - Mobility program for pressure ulcer prophylaxis -PT/OT to evaluate and treat - Smoking cessation counselling -Discontinue all narcotic analgesia CODE STATUS: FULL CONDITION: CRITICAL PROGNOSIS: GUARDED Discussed care plan with RT/RN Discussed with Dr. Blankenship. Thank you for the consult, will follow. Please do not hestate to call with any questions The high probability of a clinically significant, sudden or life threatening deterioration of the [PULMONARY, NEUROLOGY] system(s) required my full and direct attention, intervention and personal management. The aggregate critical care time was [75] minutes. This time is in addition to time spent performing reported procedures but includes the following: [X] Data Review and interpretation [X] Patient assessment and monitoring of vital signs [X] Documentation [X] Medication orders and management
[2018-10-17] MEDS: PEPCID PO SCH (09:55)
[2018-10-17] MEDS: CLARITIN PO SCH (09:56)
[2018-10-17] MEDS: ALDACTONE PO SCH (09:57)
[2018-10-17] MEDS: ATIVAN PO SCH (09:58)
[2018-10-17] MEDS: COZAAR PO SCH (09:58)
[2018-10-17] MEDS: ECOTRIN PO SCH (09:59)
[2018-10-17] MEDS: COREG PO SCH ×2 (10:01→22:22)
[2018-10-17] MEDS: WELLBUTRIN SR PO SCH (10:03)
[2018-10-17] MEDS: FLONASE NS SCH (10:04)
[2018-10-17] MEDS: SODIUM CHLORIDE FLUSH SYRINGE 10 ML IV SCH ×2 (10:04→22:26)
[2018-10-17] MEDS ORDERED: KIONEX PO ONE (10:28)
--- NOTE | 2018-10-17 10:29 | Progress Note ---
Assessment and Plan Assessment and plan: Patient is a 48-year-old -Malag[place] female with medical history significant for morbid obesity, chronic systolic CHF, COPD, diabetes, sleep apnea presented to the emergency department from [facility] with complaints of shortness of breath and AMS. Per documentation from facility patient was noted to have change in mental status and oxygen saturation was noted in the 50s. She was transported to the ED via EMS on CPAP. Patient is unable to provide adequate information and much information is ob tained from the chart. Present review of chart shows similar presentation recently and at the time it was not sure the patient was complaint with the CPAP. On arrival here patient was noted to have a co2 of over 90 and improving to 81 with BIPAP, with some noted improvement in mental status slightly. It also appears from general review that her baseline CO2 is in the 70s. PRIOR IMAGING ABDOMINAL US- MEDICAL RENAL DISEASE CXR: Bibasilar opacities may be due to atelectasis, scarring or infection Acute on chronic respiratory failure with Hypercarbia and hypoxia due to COPD excaerbation and CHF exacerbation Continue current care Rosa steriods Pulmonary consulted Nebs Try to obtain accurate information [place] facility COPD exacerbation - Treated with steroids and nebs, Acute exacerbation of Chronic systolic heart failure, elevated troponin - Cardiology consult appreciated, - Recommend medical management, she was diuresed, now off lasix Diabetes mellitus type 2 with hyperglycemia - cont to adjust insulins and expect improvement as steroids is tappered HLD - Continue statin Hyperkalemia: Kayxalate given NSTEMI type 2; SECONDARY TO OXYGEN DEMAND, OUTPATIENT CARDIOLOGY EVAL Morbid obesity: EXTENSIVE COUNSELLING PROVIDED, 15 MINS Depression Dilated cardiomyopathy GERD (gastroesophageal reflux disease) Secondary Hypercoagbale state Non compliance. Extensive couselling provided History Interval history: Patient seen and examined, has made remarkable improvement, admits to not being complaint with CPAP for one day. Which was the day before admission Hospitalist Physical - Physical exam Narrative exam: General appearance: Present: mild distress, obese - EENT Eyes: Present: PERRL, EOM intact ENT: hearing intact, clear oral mucosa - Neck Neck: Present: supple, normal ROM - Respiratory Respiratory effort: normal Respiratory: bilateral: diminished - Cardiovascular Rhythm: regular Heart Sounds: Present: S1 & S2 - Extremities Extremities: no ischemia, pulses intact, pulses symmetrical, No edema, normal temperature, normal color, Full ROM Peripheral Pulses: within normal limits - Abdominal General gastrointestinal: Present: soft, non-tender, distended, normal bowel sounds - Integumentary Integumentary: Present: clear, warm - Musculoskeletal Musculoskeletal: strength equal bilaterally - Psychiatric Psychiatric: other normal mood and affect - Neurologic Neurologic: CNII-XII intact, moves all extremities - Allied Health Allied health notes reviewed: nursing - Constitutional Vitals: Temp Pulse Resp BP Pulse Ox 98.2 F 99 H 20 142/80 96 10/17/18 04:00 10/17/18 10:01 10/17/18 09:56 10/17/18 10:01 10/17/18 07:55 General appearance: Present: severe distress, obese Results - Labs CBC & Chem 7: 10/17/18 04:58 10/17/18 04:58 Labs: Laboratory Last Values WBC 8.1 K/mm3 (4.5-11.0) 10/17/18 04:58 RBC 4.07 M/mm3 (3.65-5.03) 10/17/18 04:58 Hgb 12.3 gm/dl (10.1-14.3) 10/17/18 04:58 Hct 39.4 % (30.3-42.9) 10/17/18 04:58 MCV 97 fl (79-97) 10/17/18 04:58 MCH 30 pg (28-32) 10/17/18 04:58 MCHC 31 % (30-34) 10/17/18 04:58 RDW 17.4 % (13.2-15.2) H 10/17/18 04:58 Plt Count 125 K/mm3 (140-440) L 10/17/18 04:58 Lymph % (Auto) Can Handler 10/17/18 04:58 Hemphill % (Auto) Can Handler 10/17/18 04:58 Eos % (Auto) Can Handler 10/17/18 04:58 Baso % (Auto) Can Handler 10/17/18 04:58 Lymph # Can Handler 10/17/18 04:58 Hemphill # Can Handler 10/17/18 04:58 Eos # Can Handler 10/17/18 04:58 Baso # Can Handler 10/17/18 04:58 Seg Neutrophils % Can Handler 10/17/18 04:58 Seg Neutrophils # Can Handler 10/17/18 04:58 PT 16.2 Sec. (12.2-14.9) H 10/16/18 06:20 INR 1.34 (0.87-1.13) H 10/16/18 06:20 APTT 25.2 Sec. (24.2-36.6) 10/16/18 06:20 POC ABG pH 7.223 (7.35-7.45) L 10/16/18 08:02 POC ABG pO2 57 (80-105) L 10/16/18 08:02 POC ABG HCO3 33.4 (22-26 mml/L) 10/16/18 08:02 POC ABG Total CO2 36 (23-27mmol/L) 10/16/18 08:02 POC ABG O2 Sat 81 10/16/18 08:02 POC ABG Base Excess 6 ((-2) - (+3)mmol/L) 10/16/18 08:02 50 % 10/16/18 08:02 Sodium 138 mmol/L (137-145) 10/17/18 04:58 Potassium 5.3 mmol/L (3.6-5.0) H 10/17/18 04:58 Chloride 98.9 mmol/L (98-107) 10/17/18 04:58 Carbon Dioxide 30 mmol/L (22-30) 10/17/18 04:58 14 mmol/L 10/17/18 04:58 BUN 19 mg/dL (7-17) H 10/17/18 04:58 0.7 mg/dL (0.7-1.2) 10/17/18 04:58 Estimated GFR > 60 ml/min 10/17/18 04:58 27 % 10/17/18 04:58 Glucose 255 mg/dL (65-100) H 10/17/18 04:58 POC Glucose 255 (70-105) H 10/17/18 06:04 Calcium 8.6 mg/dL (8.4-10.2) 10/17/18 04:58 0.045 ng/mL (0.00-0.029) H D 10/16/18 14:45 NT-Pro-B Natriuret Pep 711.7 pg/mL (0-450) H 10/16/18 06:20 Triglycerides 178 mg/dL (2-149) H 10/16/18 06:20 Cholesterol 145 mg/dL (50-199) 10/16/18 06:20 66 mg/dL (50-130) 10/16/18 06:20 63 mg/dL (40-59) H 10/16/18 06:20 2.30 % 10/16/18 06:20 Active Medications - Current Medications Current Medications: Generic Name Dose Route Start Last Admin Trade Name Freq PRN Reason Stop Dose Admin Acetaminophen 650 mg 10/16/18 18:07 10/17/18 03:20 Tylenol PO 650 mg Q6H PRN Administration Pain, Mild (1-3) Albuterol 2.5 mg 10/16/18 08:21 Proventil IH Q3HRT PRN Shortness Of Breath Albuterol/Ipratropium 1 ampul 10/16/18 14:00 10/17/18 07:53 Duoneb *Not For Prn Use* IH 1 ampul Q6HRT JOE Administration Aspirin 325 mg 10/16/18 10:00 10/17/18 09:59 Ecotrin PO 325 mg DAILY JOE Administration Atorvastatin Calcium 40 mg 10/16/18 22:00 10/17/18 00:39 Lipitor PO 40 mg QHS JOE Administration Budesonide 0.5 mg 10/16/18 20:00 10/17/18 07:53 Pulmicort IH 0.5 mg Q12HRT JOE Administration Bupropion HCl 100 mg 10/16/18 10:00 10/17/18 10:03 Wellbutrin Sr PO 100 mg DAILY JOE Administration Carbamazepine 200 mg 10/16/18 10:00 10/17/18 09:55 Tegretol PO 200 mg DAILY JOE Administration Carvedilol 6.25 mg 10/16/18 10:00 10/17/18 10:01 Coreg PO 6.25 mg BID JOE Administration Dextrose 50 ml 10/16/18 08:29 D50w (25gm) Syringe IV PRN PRN Hypoglycemia Famotidine 20 mg 10/16/18 10:00 10/17/18 09:55 Pepcid PO 20 mg DAILY JOE Administration Fluticasone Propionate 50 mcg 10/16/18 10:00 10/17/18 10:04 Flonase NS 50 mcg DAILY JOE Administration Hydralazine HCl 37.5 mg 10/16/18 09:00 10/17/18 09:53 Apresoline PO 37.5 mg Q8H JOE Administration Insulin Glargine 10 units 10/16/18 22:00 10/17/18 00:23 Lantus SUB-Q 10 units QHS JOE Administration Insulin Human Lispro 0 unit 10/16/18 12:00 10/17/18 06:07 Humalog SUB-Q 4 unit Q6HR JOE Administration Protocol Isosorbide Dinitrate 20 mg 10/16/18 09:00 10/17/18 09:54 Isordil Titradose PO 20 mg Q8H JOE Administration Loratadine 10 mg 10/16/18 10:00 10/17/18 09:56 Claritin PO 10 mg DAILY JOE Administration Lorazepam 0.5 mg 10/16/18 10:00 10/17/18 09:58 Ativan PO 0.5 mg DAILY JOE Administration Losartan Potassium 50 mg 10/16/18 10:00 10/17/18 09:58 Cozaar PO 50 mg QDAY JOE Administration Methadone HCl 5 mg 10/16/18 10:00 10/17/18 09:56 Dolophine PO 5 mg BID JOE Administration Montelukast Sodium 10 mg 10/16/18 22:00 10/16/18 21:33 Singulair PO 10 mg QHS JOE Administration Polyethylene Glycol 17 gm 10/16/18 08:23 Miralax 3350 PO QDAY PRN Constipation Quetiapine Fumarate 300 mg 10/16/18 10:00 10/17/18 09:58 Seroquel PO 300 mg BID JOE Administration Senna 17.2 mg 10/16/18 22:00 10/17/18 00:40 Senokot PO 17.2 mg HS JOE Administration Sodium Chloride 10 ml 10/16/18 10:00 10/17/18 10:04 Sodium Chloride Flush Syringe 10 Ml IV 10 ml BID JOE Administration Sodium Chloride 10 ml 10/16/18 08:21 Sodium Chloride Flush Syringe 10 Ml IV PRN PRN LINE FLUSH Sorbitol 30 ml 10/16/18 09:00 10/17/18 09:55 Sorbitol 70% PO 30 ml Q12H JOE Administration Spironolactone 25 mg 10/16/18 10:00 10/17/18 09:57 Aldactone PO 25 mg QDAY JOE Administration Trazodone HCl 50 mg 10/16/18 22:00 10/17/18 00:39 Desyrel PO 50 mg QHS JOE Administration Nutrition/Malnutrition Assess - Dietary Evaluation Nutrition/Malnutrition Findings: Nutrition Notes Start: 10/16/18 11:01 Freq: Status: Active Protocol: Document 10/16/18 11:01 TAVO (Rec: 10/16/18 11:06 TAVO [id number] [email or web address]) Nutrition Notes Need for Assessment generated from: MD Order Initial or Follow up Assessment Current Diagnosis COPD,Diabetes,Heart Failure Other Pertinent Diagnosis COPD exacerbation Current Diet Cardiac/Consistent CHO Labs/Tests BG 179 TG 178 BNP 711.7 Pertinent Medications Solumedrol, Sorbitol, Senna, Methadone Height 5 ft 6 in Weight 145.15 kg Renick Body Weight (kg) 59.09 BMI 51.6 Weight Status Morbidly Obese Subjective/Other Information RD consulted for poor oral intake. [place] from [place]; currently on BiPap support. Burn Absent Trauma Absent #1 Nutrition Diagnosis Predicted suboptimal energy intake Etiology COPD exacerbation As Evidenced by Signs and Symptoms pt on BiPap support Is patient on ventilator? No Is Patient Ambulatory and/or Out of Bed No REE-([place]-St. Jeor-confined to bed) 2520.768 Kcal/Kg value to use for calculation 12 Approximate Energy Requirements Using 1742 kcal/Kg Calculation Used for Recommendations Kcal/kg Additional Notes Pro needs 0.8-1g/kg adjBW: 82- 102g/day Fluid needs per MD Nutrition Intervention Change Diet Order: Continue current diet Goal #1 PO tolerance Goal #2 PO intake to meet at least 75% energy and pro needs Anticipated Discharge Needs: None identified at this time Follow-Up By: 10/19/18 Additional Comments F/U: intakes, need for ONS
[2018-10-17] MEDS: SINGULAIR PO SCH (22:26)
[2018-10-18] MEDS: ISORDIL TITRADOSE PO SCH ×3 (00:33→18:13)
[2018-10-18] MEDS: APRESOLINE PO SCH ×3 (00:34→18:22)
[2018-10-18] MEDS: HumaLOG SUB-Q SCH ×4 (00:35→18:20)
[2018-10-18] MEDS: LANTUS SUB-Q SCH ×2 (00:37→21:57)
[2018-10-18] MEDS: DUONEB *Not for PRN Use IH SCH ×4 (03:26→21:03)
[2018-10-18] MEDS: SOLU-Medrol IV SCH ×2 (05:50→13:21)
[2018-10-18] MEDS: PULMICORT IH SCH ×2 (07:32→21:03)
[2018-10-18] MEDS: COZAAR PO SCH (09:42)
[2018-10-18] MEDS: ALDACTONE PO SCH (09:42)
[2018-10-18] MEDS: DOLOPHINE PO SCH ×2 (09:43→21:58)
[2018-10-18] MEDS: COREG PO SCH ×2 (09:43→21:59)
[2018-10-18] MEDS: CLARITIN PO SCH (09:43)
[2018-10-18] MEDS: PEPCID PO SCH (09:44)
[2018-10-18] MEDS: ECOTRIN PO SCH (09:44)
[2018-10-18] MEDS: ATIVAN PO SCH (09:46)
[2018-10-18] MEDS: FLONASE NS SCH (09:53)
[2018-10-18] MEDS: WELLBUTRIN SR PO SCH (09:53)
[2018-10-18] MEDS: SODIUM CHLORIDE FLUSH SYRINGE 10 ML IV SCH ×2 (09:55→22:08)
[2018-10-18] MEDS: SORBITOL 70% PO SCH ×2 (09:56→21:05)
--- NOTE | 2018-10-18 13:05 | Progress Note ---
Assessment and Plan Acute on chronic hypoxemic hypercapnic respiratory failure. Acute COPD exacerbation Acute on chronic systolic CHF exacerbation, non-ischemic NSTEMI Psychizoaffective disorder Elevated D-dimer. Obstructive sleep apnea. History of hypertension. History of bipolar disorder. Tobacco use disorder. - repeat BMP in am re: hyperkalemia - stopped Solumedrol - prednisone 40 mg p.o. daily (1st dose today) - continue supplemental oxygen to keep O2 sats > 90% (transitioned off HFNC) - continue BIPAP scheduled qhs - continue inhaled corticosteroids - add LABA (Brovana) - add VTE and stress ulcer prophylaxis - resume maintenance diuresis for CHF (Lasix 20 mg p.o. daily) - Continue empiric antibiotics to complete course - continue SSI for glycemic control with target blood glucose <180mg/dL - continue cardio-protective measures - Mobility program for pressure ulcer prophylaxis - continue PT/OT as tolerated - tobacco abstinence strongly counseled - continue other care per attending / other consultants ... explained reason she cannot get candy & chewing gum for better diabetic control issues ..... d/c planning for next 24 hours as we observe response to steroid taper ... re-evaluate in am & prn Subjective Date of service: 10/18/18 Principal diagnosis: Ac on ch hypoxemic hypercapnic resp failure; Acute COPD exacerbation; CHF Interval history: Patient is seen today for: Acute on chronic hypoxemic hypercapnic respiratory failure; Acute COPD exacerbation; Acute on chronic systolic CHF exacerbation Seen and examined at bedside; 24hour events reviewed; nursing and respiratory care staff consulted; no adverse overnight events reported to me; resting peacefully is bed; feels better; weaned off HFNC; denies acute chest pains or palpitations; No N/V/F/C Objective Vital Signs - 12hr 10/18/18 10/18/18 10/18/18 02:55 03:27 03:38 Temperature Pulse Rate 98 H Pulse Rate [ 91 H 97 H Bilateral Throughout] Pulse Rate [ Bilateral] Pulse Rate [ From Monitor] Respiratory 24 Rate Respiratory 24 24 Rate [Bilateral Throughout] Respiratory Rate [Bilateral ] Blood Pressure 147/95 O2 Sat by Pulse 96 Oximetry 10/18/18 10/18/18 10/18/18 04:00 07:34 07:35 Temperature Pulse Rate Pulse Rate [ 92 H Bilateral Throughout] Pulse Rate [ 90 Bilateral] Pulse Rate [ 91 H From Monitor] Respiratory 20 Rate Respiratory 16 Rate [Bilateral Throughout] Respiratory 16 Rate [Bilateral ] Blood Pressure O2 Sat by Pulse 96 96 Oximetry 10/18/18 10/18/18 10/18/18 07:38 08:00 08:57 Temperature 98.4 F Pulse Rate 92 H Pulse Rate [ Bilateral Throughout] Pulse Rate [ Bilateral] Pulse Rate [ 92 H From Monitor] Respiratory 17 Rate Respiratory Rate [Bilateral Throughout] Respiratory Rate [Bilateral ] Blood Pressure O2 Sat by Pulse 94 Oximetry 10/18/18 10/18/18 10/18/18 09:42 09:43 10:05 Temperature Pulse Rate 102 H 101 H 112 H Pulse Rate [ Bilateral Throughout] Pulse Rate [ Bilateral] Pulse Rate [ From Monitor] Respiratory Rate Respiratory Rate [Bilateral Throughout] Respiratory Rate [Bilateral ] Blood Pressure 155/101 155/101 O2 Sat by Pulse Oximetry 10/18/18 10/18/18 10/18/18 10:49 12:00 12:21 Temperature 98.4 F Pulse Rate Pulse Rate [ Bilateral Throughout] Pulse Rate [ Bilateral] Pulse Rate [ From Monitor] Respiratory 19 Rate Respiratory Rate [Bilateral Throughout] Respiratory Rate [Bilateral ] Blood Pressure O2 Sat by Pulse 92 92 Oximetry CBC and BMP: 10/17/18 04:58 10/17/18 04:58 ABG, PT/INR, D-dimer: ABG POC ABG pH 7.364 (7.35-7.45) 10/17/18 12:47 POC ABG pCO2 67.2 (35-45) H 10/17/18 12:47 POC ABG pO2 66 (80-105) L 10/17/18 12:47 POC ABG HCO3 38.3 (22-26 mml/L) 10/17/18 12:47 POC ABG Total CO2 40 (23-27mmol/L) 10/17/18 12:47 POC ABG O2 Sat 91 10/17/18 12:47 PT/INR, D-dimer PT 16.2 Sec. (12.2-14.9) H 10/16/18 06:20 INR 1.34 (0.87-1.13) H 10/16/18 06:20 Abnormal lab findings: Abnormal Labs 10/16/18 10/16/18 10/16/18 06:20 06:20 06:20 RDW 17.6 H Plt Count 123 L Seg Neutrophils % 74.5 H PT 16.2 H INR 1.34 H POC ABG pH POC ABG pCO2 POC ABG pO2 Potassium Carbon Dioxide 31 H BUN Glucose 179 H POC Glucose Troponin T 0.071 H NT-Pro-B Natriuret Pep Triglycerides 178 H HDL Cholesterol 63 H 10/16/18 10/16/18 10/16/18 06:20 06:23 08:02 RDW Plt Count Seg Neutrophils % PT INR POC ABG pH 7.172 L 7.223 L POC ABG pCO2 POC ABG pO2 57 L Potassium Carbon Dioxide BUN Glucose POC Glucose Troponin T NT-Pro-B Natriuret Pep 711.7 H Triglycerides HDL Cholesterol 10/16/18 10/16/18 10/16/18 09:18 12:09 14:45 RDW Plt Count Seg Neutrophils % PT INR POC ABG pH POC ABG pCO2 POC ABG pO2 Potassium Carbon Dioxide BUN Glucose POC Glucose 235 H Troponin T 0.059 H 0.045 H D NT-Pro-B Natriuret Pep Triglycerides HDL Cholesterol 10/16/18 10/17/18 10/17/18 17:05 00:18 04:58 RDW 17.4 H Plt Count 125 L Seg Neutrophils % PT INR POC ABG pH POC ABG pCO2 POC ABG pO2 Potassium Carbon Dioxide BUN Glucose POC Glucose 184 H 191 H Troponin T NT-Pro-B Natriuret Pep Triglycerides HDL Cholesterol 10/17/18 10/17/18 10/17/18 04:58 06:04 12:17 RDW Plt Count Seg Neutrophils % PT INR POC ABG pH POC ABG pCO2 POC ABG pO2 Potassium 5.3 H Carbon Dioxide BUN 19 H Glucose 255 H POC Glucose 255 H 435 H Troponin T NT-Pro-B Natriuret Pep Triglycerides HDL Cholesterol 10/17/18 10/17/18 10/18/18 12:47 17:46 00:14 RDW Plt Count Seg Neutrophils % PT INR POC ABG pH POC ABG pCO2 67.2 H POC ABG pO2 66 L Potassium Carbon Dioxide BUN Glucose POC Glucose 233 H 247 H Troponin T NT-Pro-B Natriuret Pep Triglycerides HDL Cholesterol 10/18/18 10/18/18 06:34 12:16 RDW Plt Count Seg Neutrophils % PT INR POC ABG pH POC ABG pCO2 POC ABG pO2 Potassium Carbon Dioxide BUN Glucose POC Glucose 264 H 324 H Troponin T NT-Pro-B Natriuret Pep Triglycerides HDL Cholesterol
[2018-10-18] MEDS: TYLENOL PO PRN (14:53)
[2018-10-18] MEDS: DELTASONE PO SCH (14:56)
[2018-10-18] MEDS: LASIX IV SCH (15:04)
--- NOTE | 2018-10-18 17:04 | Progress Note ---
Assessment and Plan Assessment and plan: Patient is a 48-year-old -[place] African female with medical history significant for morbid obesity, chronic systolic CHF, COPD, diabetes, sleep apnea presented to the emergency department from [facility] with complaints of shortness of breath and AMS. Per documentation from facility patient was noted to have change in mental status and oxygen saturation was noted in the 50s. She was transported to the ED via EMS on CPAP. Patient is unable to provide adequate information and much information is ob tained from the chart. Present review of chart shows similar presentation recently and at the time it was not sure the patient was complaint with the CPAP. On arrival here patient was noted to have a co2 of over 90 and improving to 81 with BIPAP, with some noted improvement in mental status slightly. It also appears from general review that her baseline CO2 is in the 70s. PRIOR IMAGING ABDOMINAL US- MEDICAL RENAL DISEASE CXR: Bibasilar opacities may be due to atelectasis, scarring or infection Acute on chronic respiratory failure with Hypercarbia and hypoxia due to COPD excaerbation and CHF exacerbation Continue current care Rosa steriods Pulmonary consulted and input noted Patient apparently was not using CPAP, counselling provided and will also be relayed to the facility Wean oxygen Nebs Try to obtain accurate information [facility] facility COPD exacerbation - Treated with steroids and nebs, Acute exacerbation of Chronic systolic heart failure, elevated troponin - Cardiology consult appreciated, - Recommend medical management, she was diuresed, now off lasix Diabetes mellitus type 2 with hyperglycemia - cont to adjust insulins and expect improvement as steroids is tappered HLD - Continue statin Hyperkalemia: Kayxalate given NSTEMI type 2; SECONDARY TO OXYGEN DEMAND, OUTPATIENT CARDIOLOGY EVAL Morbid obesity: EXTENSIVE COUNSELLING PROVIDED, 15 MINS Depression Dilated cardiomyopathy GERD (gastroesophageal reflux disease) Secondary Hypercoagbale state Non compliance. Extensive counselling provided History Interval history: Patient seen and examined, has made remarkable improvement, still on high flow oxygent, no adverse event noted overnight Hospitalist Physical - Physical exam Narrative exam: General appearance: Present: mild distress, obese - EENT Eyes: Present: PERRL, EOM intact ENT: hearing intact, clear oral mucosa - Neck Neck: Present: supple, normal ROM - Respiratory Respiratory effort: normal Respiratory: bilateral: diminished - Cardiovascular Rhythm: regular Heart Sounds: Present: S1 & S2 - Extremities Extremities: no ischemia, pulses intact, pulses symmetrical, No edema, normal temperature, normal color, Full ROM Peripheral Pulses: within normal limits - Abdominal General gastrointestinal: Present: soft, non-tender, distended, normal bowel sounds - Integumentary Integumentary: Present: clear, warm - Musculoskeletal Musculoskeletal: strength equal bilaterally - Psychiatric Psychiatric: other normal mood and affect - Neurologic Neurologic: CNII-XII intact, moves all extremities - Allied Health Allied health notes reviewed: nursing - Constitutional Vitals: Temp Pulse Resp BP Pulse Ox 98.4 F 89 24 155/101 93 10/18/18 12:21 10/18/18 16:00 10/18/18 16:00 10/18/18 09:43 10/18/18 16:00 General appearance: Present: severe distress, obese Results - Labs CBC & Chem 7: 10/17/18 04:58 10/17/18 04:58 Labs: Laboratory Last Values WBC 8.1 K/mm3 (4.5-11.0) 10/17/18 04:58 RBC 4.07 M/mm3 (3.65-5.03) 10/17/18 04:58 Hgb 12.3 gm/dl (10.1-14.3) 10/17/18 04:58 Hct 39.4 % (30.3-42.9) 10/17/18 04:58 MCV 97 fl (79-97) 10/17/18 04:58 MCH 30 pg (28-32) 10/17/18 04:58 MCHC 31 % (30-34) 10/17/18 04:58 RDW 17.4 % (13.2-15.2) H 10/17/18 04:58 Plt Count 125 K/mm3 (140-440) L 10/17/18 04:58 Lymph % (Auto) Manager Asset 10/17/18 04:58 Alfalfa % (Auto) Manager Asset 10/17/18 04:58 Eos % (Auto) Manager Asset 10/17/18 04:58 Baso % (Auto) Manager Asset 10/17/18 04:58 Lymph # Manager Asset 10/17/18 04:58 Alfalfa # Manager Asset 10/17/18 04:58 Eos # Manager Asset 10/17/18 04:58 Baso # Manager Asset 10/17/18 04:58 Seg Neutrophils % Manager Asset 10/17/18 04:58 Seg Neutrophils # Manager Asset 10/17/18 04:58 PT 16.2 Sec. (12.2-14.9) H 10/16/18 06:20 INR 1.34 (0.87-1.13) H 10/16/18 06:20 APTT 25.2 Sec. (24.2-36.6) 10/16/18 06:20 POC ABG pH 7.364 (7.35-7.45) 10/17/18 12:47 POC ABG pCO2 67.2 (35-45) H 10/17/18 12:47 POC ABG pO2 66 (80-105) L 10/17/18 12:47 POC ABG HCO3 38.3 (22-26 mml/L) 10/17/18 12:47 POC ABG Total CO2 40 (23-27mmol/L) 10/17/18 12:47 POC ABG O2 Sat 91 10/17/18 12:47 POC ABG Base Excess 13 ((-2) - (+3)mmol/L) 10/17/18 12:47 45 % 10/17/18 12:47 Sodium 138 mmol/L (137-145) 10/17/18 04:58 Potassium 5.3 mmol/L (3.6-5.0) H 10/17/18 04:58 Chloride 98.9 mmol/L (98-107) 10/17/18 04:58 Carbon Dioxide 30 mmol/L (22-30) 10/17/18 04:58 14 mmol/L 10/17/18 04:58 BUN 19 mg/dL (7-17) H 10/17/18 04:58 0.7 mg/dL (0.7-1.2) 10/17/18 04:58 Estimated GFR > 60 ml/min 10/17/18 04:58 27 % 10/17/18 04:58 Glucose 255 mg/dL (65-100) H 10/17/18 04:58 POC Glucose 324 (70-105) H 10/18/18 12:16 Calcium 8.6 mg/dL (8.4-10.2) 10/17/18 04:58 0.045 ng/mL (0.00-0.029) H D 10/16/18 14:45 NT-Pro-B Natriuret Pep 711.7 pg/mL (0-450) H 10/16/18 06:20 Triglycerides 178 mg/dL (2-149) H 10/16/18 06:20 Cholesterol 145 mg/dL (50-199) 10/16/18 06:20 66 mg/dL (50-130) 10/16/18 06:20 63 mg/dL (40-59) H 10/16/18 06:20 2.30 % 10/16/18 06:20 Active Medications - Current Medications Current Medications: Generic Name Dose Route Start Last Admin Trade Name Freq PRN Reason Stop Dose Admin Acetaminophen 650 mg 10/16/18 18:07 10/18/18 14:53 Tylenol PO 650 mg Q6H PRN Administration Pain, Mild (1-3) Albuterol 2.5 mg 10/16/18 08:21 Proventil IH Q3HRT PRN Shortness Of Breath Albuterol/Ipratropium 1 ampul 10/16/18 14:00 10/18/18 15:13 Duoneb *Not For Prn Use* IH 1 ampul Q6HRT JOE Administration Aspirin 325 mg 10/16/18 10:00 10/18/18 09:44 Ecotrin PO 325 mg DAILY JOE Administration Atorvastatin Calcium 40 mg 10/16/18 22:00 10/17/18 22:24 Lipitor PO 40 mg QHS JOE Administration Budesonide 0.5 mg 10/16/18 20:00 10/18/18 07:32 Pulmicort IH 0.5 mg Q12HRT JOE Administration Bupropion HCl 100 mg 10/16/18 10:00 10/18/18 09:53 Wellbutrin Sr PO 100 mg DAILY JOE Administration Carbamazepine 200 mg 10/16/18 10:00 10/18/18 09:53 Tegretol PO 200 mg DAILY JOE Administration Carvedilol 6.25 mg 10/16/18 10:00 10/18/18 09:43 Coreg PO 6.25 mg BID JOE Administration Dextrose 50 ml 10/16/18 08:29 D50w (25gm) Syringe IV PRN PRN Hypoglycemia Famotidine 20 mg 10/16/18 10:00 10/18/18 09:44 Pepcid PO 20 mg DAILY JOE Administration Fluticasone Propionate 50 mcg 10/16/18 10:00 10/18/18 09:53 Flonase NS 50 mcg DAILY JOE Administration Furosemide 20 mg 10/18/18 15:00 10/18/18 15:04 Lasix IV 20 mg ONCE JOE Administration Furosemide 20 mg 10/19/18 10:00 Lasix PO QDAY JOE Hydralazine HCl 37.5 mg 10/16/18 09:00 10/18/18 10:05 Apresoline PO 37.5 mg Q8H JOE Administration Insulin Human Lispro 0 unit 10/16/18 12:00 10/18/18 12:39 Humalog SUB-Q 6 unit Q6HR JOE Administration Protocol Isosorbide Dinitrate 20 mg 10/16/18 09:00 10/18/18 10:05 Isordil Titradose PO 20 mg Q8H JOE Administration Loratadine 10 mg 10/16/18 10:00 10/18/18 09:43 Claritin PO 10 mg DAILY JOE Administration Lorazepam 0.5 mg 10/16/18 10:00 10/18/18 09:46 Ativan PO 0.5 mg DAILY JOE Administration Losartan Potassium 50 mg 10/16/18 10:00 10/18/18 09:42 Cozaar PO 50 mg QDAY JOE Administration Methadone HCl 5 mg 10/16/18 10:00 10/18/18 09:43 Dolophine PO 5 mg BID JOE Administration Montelukast Sodium 10 mg 10/16/18 22:00 10/17/18 22:26 Singulair PO 10 mg QHS JOE Administration Polyethylene Glycol 17 gm 10/16/18 08:23 Miralax 3350 PO QDAY PRN Constipation Prednisone 40 mg 10/18/18 15:00 10/18/18 14:56 Deltasone PO 40 mg QDAY JOE Administration Quetiapine Fumarate 300 mg 10/16/18 10:00 10/18/18 09:44 Seroquel PO 300 mg BID JOE Administration Senna 17.2 mg 10/16/18 22:00 10/17/18 22:25 Senokot PO 17.2 mg HS JOE Administration Sodium Chloride 10 ml 10/16/18 10:00 10/18/18 09:55 Sodium Chloride Flush Syringe 10 Ml IV 10 ml BID JOE Administration Sodium Chloride 10 ml 10/16/18 08:21 Sodium Chloride Flush Syringe 10 Ml IV PRN PRN LINE FLUSH Sorbitol 30 ml 10/16/18 09:00 10/18/18 09:56 Sorbitol 70% PO 30 ml Q12H JOE Administration Spironolactone 25 mg 10/16/18 10:00 10/18/18 09:42 Aldactone PO 25 mg QDAY JOE Administration Trazodone HCl 50 mg 10/16/18 22:00 10/17/18 22:23 Desyrel PO 50 mg QHS JOE Administration Nutrition/Malnutrition Assess - Dietary Evaluation Nutrition/Malnutrition Findings: Nutrition Notes Start: 10/16/18 11:01 Freq: Status: Active Protocol: Document 10/16/18 11:01 TAVO (Rec: 10/16/18 11:06 [facility] SRW- [email or web address]) Nutrition Notes Need for Assessment generated from: MD Order Initial or Follow up Assessment Current Diagnosis COPD,Diabetes,Heart Failure Other Pertinent Diagnosis COPD exacerbation Current Diet Cardiac/Consistent CHO Labs/Tests BG 179 TG 178 BNP 711.7 Pertinent Medications Solumedrol, Sorbitol, Senna, Methadone Height 5 ft 6 in Weight 145.15 kg [place] Body Weight (kg) 59.09 BMI 51.6 Weight Status Morbidly Obese Subjective/Other Information RD consulted for poor oral intake. Pt from [place]; currently on BiPap support. Burn Absent Trauma Absent #1 Nutrition Diagnosis Predicted suboptimal energy intake Etiology COPD exacerbation As Evidenced by Signs and Symptoms pt on BiPap support Is patient on ventilator? No Is Patient Ambulatory and/or Out of Bed No REE-([place]-confined to bed) 2520.768 Kcal/Kg value to use for calculation 12 Approximate Energy Requirements Using 1742 kcal/Kg Calculation Used for Recommendations Kcal/kg Additional Notes Pro needs 0.8-1g/kg adjBW: 82- 102g/day Fluid needs per MD Nutrition Intervention Change Diet Order: Continue current diet Goal #1 PO tolerance Goal #2 PO intake to meet at least 75% energy and pro needs Anticipated Discharge Needs: None identified at this time Follow-Up By: 10/19/18 Additional Comments F/U: intakes, need for ONS
[2018-10-18] MEDS: SINGULAIR PO SCH (21:58)
[2018-10-18] MEDS: DESYREL PO SCH (21:58)
[2018-10-18] MEDS: SENOKOT PO SCH (21:59)
[2018-10-19] MEDS: HumaLOG SUB-Q SCH ×4 (00:34→17:46)
[2018-10-19] MEDS: DUONEB *Not for PRN Use IH SCH ×4 (01:07→19:28)
[2018-10-19] MEDS: ISORDIL TITRADOSE PO SCH ×3 (01:10→16:52)
[2018-10-19 05:43] LABS: BUN/Creatinine Ratio 26; Blood Urea Nitrogen 21 mg/dL (7-17); Calcium 8.7 mg/dL (8.4-10.2); Hemolysis Index 6
[2018-10-19] MEDS: APRESOLINE PO SCH ×3 (06:39→16:54)
[2018-10-19] MEDS: PULMICORT IH SCH ×2 (07:43→19:27)
[2018-10-19] MEDS: WELLBUTRIN SR PO SCH (09:54)
[2018-10-19] MEDS: COZAAR PO SCH (09:54)
[2018-10-19] MEDS: CLARITIN PO SCH (09:55)
[2018-10-19] MEDS: PEPCID PO SCH (09:56)
[2018-10-19] MEDS: SORBITOL 70% PO SCH ×2 (09:56→22:18)
[2018-10-19] MEDS: SODIUM CHLORIDE FLUSH SYRINGE 10 ML IV SCH ×2 (09:56→22:23)
[2018-10-19] MEDS: LASIX PO SCH (09:57)
[2018-10-19] MEDS: DELTASONE PO SCH (09:57)
[2018-10-19] MEDS: COREG PO SCH ×2 (09:58→22:19)
[2018-10-19] MEDS: ECOTRIN PO SCH (10:00)
[2018-10-19] MEDS: DOLOPHINE PO SCH ×2 (10:01→10:10)
[2018-10-19] MEDS: ATIVAN PO SCH (10:01)
[2018-10-19] MEDS: ALDACTONE PO SCH (10:05)
[2018-10-19] MEDS: FLONASE NS SCH (10:11)
--- NOTE | 2018-10-19 11:47 | Progress Note ---
Assessment and Plan Acute on chronic hypoxemic hypercapnic respiratory failure. Acute COPD exacerbation Acute on chronic systolic CHF exacerbation, non-ischemic NSTEMI Psychizoaffective disorder Elevated D-dimer. Obstructive sleep apnea. History of hypertension. History of bipolar disorder. Tobacco use disorder. - repeat BMP WNL - continue prednisone 40 mg p.o. daily (1st dose today) - continue supplemental oxygen to keep O2 sats > 90% (transitioned off HFNC) - continue BIPAP scheduled qhs - continue inhaled corticosteroids - continue LABA (Brovana) - continue VTE and stress ulcer prophylaxis - resume maintenance diuresis for CHF (Lasix 20 mg p.o. daily) - Continue empiric antibiotics to complete course - continue SSI for glycemic control with target blood glucose <180mg/dL - continue cardio-protective measures - Mobility program for pressure ulcer prophylaxis - continue PT/OT as tolerated - tobacco abstinence strongly counseled - continue other care per attending / other consultants ... explained reason she cannot get candy & chewing gum for better diabetic control issues ..... d/c planning ongoing ... re-evaluate in am & prn Subjective Date of service: 10/19/18 Principal diagnosis: Ac on ch hypoxemic hypercapnic resp failure; Acute COPD ex acerbation; CHF Interval history: Patient is seen today for: Acute on chronic hypoxemic hypercapnic respiratory failure; Acute COPD exacerbation; Acute on chronic systolic CHF exacerbation Seen and examined at bedside; 24hour events reviewed; nursing and respiratory care staff consulted; no adverse overnight events reported to me; resting peacefully in bed; tolerating steroid taper; NO N/V/F/C; denies acute chest pains or palpitations Objective Vital Signs - 12hr 10/18/18 10/19/18 10/19/18 23:53 00:00 01:07 Temperature 97.7 F Pulse Rate Pulse Rate [ 84 Bilateral Throughout] Pulse Rate [ Bilateral] Pulse Rate [ 89 From Monitor] Respiratory 24 Rate Respiratory 24 Rate [Bilateral Throughout] Respiratory Rate [Bilateral ] Blood Pressure O2 Sat by Pulse 92 Oximetry 10/19/18 10/19/18 10/19/18 01:10 01:17 04:00 Temperature Pulse Rate 98 H Pulse Rate [ 89 Bilateral Throughout] Pulse Rate [ Bilateral] Pulse Rate [ 98 H From Monitor] Respiratory 24 Rate Respiratory 24 Rate [Bilateral Throughout] Respiratory Rate [Bilateral ] Blood Pressure 148/88 O2 Sat by Pulse 92 Oximetry 10/19/18 10/19/18 10/19/18 04:44 06:39 07:46 Temperature 97.6 F Pulse Rate 93 H Pulse Rate [ Bilateral Throughout] Pulse Rate [ 88 Bilateral] Pulse Rate [ From Monitor] Respiratory Rate Respiratory Rate [Bilateral Throughout] Respiratory 14 Rate [Bilateral ] Blood Pressure 148/98 O2 Sat by Pulse 91 Oximetry 10/19/18 10/19/18 10/19/18 07:56 08:00 09:54 Temperature 97.9 F Pulse Rate 111 H Pulse Rate [ Bilateral Throughout] Pulse Rate [ 95 H Bilateral] Pulse Rate [ 96 H From Monitor] Respiratory 22 Rate Respiratory Rate [Bilateral Throughout] Respiratory 22 Rate [Bilateral ] Blood Pressure 143/104 O2 Sat by Pulse 92 Oximetry 10/19/18 10/19/18 10/19/18 09:58 10:00 10:04 Temperature Pulse Rate 110 H 103 H 103 H Pulse Rate [ Bilateral Throughout] Pulse Rate [ Bilateral] Pulse Rate [ From Monitor] Respiratory Rate Respiratory Rate [Bilateral Throughout] Respiratory Rate [Bilateral ] Blood Pressure 143/104 147/104 O2 Sat by Pulse Oximetry 10/19/18 10/19/18 10/19/18 10:05 10:07 10:19 Temperature Pulse Rate 103 H 103 H Pulse Rate [ Bilateral Throughout] Pulse Rate [ Bilateral] Pulse Rate [ From Monitor] Respiratory Rate Respiratory Rate [Bilateral Throughout] Respiratory Rate [Bilateral ] Blood Pressure 147/104 147/104 O2 Sat by Pulse 92 Oximetry Constitutional: no acute distress, other Eyes: non-icteric ENT: oropharynx moist, other (mallampati 4) Neck: supple, no lymphadenopathy, no JVD, other (large neck circumference) Effort: mildly labored Ascultation: Bilateral: diminished breath sounds, rhonchi Percussion: Bilateral: not dull Cardiovascular: regular rate and rhythm Gastrointestinal: normoactive bowel sounds, soft, non-tender, non-distended Integumentary: rash (stasis dermatitis rash) Extremities: no cyanosis, pulses normal, no ischemia or petechiae, edema Neurologic: normal mental status, non-focal exam, pupils equal and round, CN II- XII normal, motor strength normal and Psychiatric: mood appropriate, affect normal CBC and BMP: 10/20/18 05:15 10/20/18 05:15 ABG, PT/INR, D-dimer: ABG POC ABG pH 7.364 (7.35-7.45) 10/17/18 12:47 POC ABG pCO2 67.2 (35-45) H 10/17/18 12:47 POC ABG pO2 66 (80-105) L 10/17/18 12:47 POC ABG HCO3 38.3 (22-26 mml/L) 10/17/18 12:47 POC ABG Total CO2 40 (23-27mmol/L) 10/17/18 12:47 POC ABG O2 Sat 91 10/17/18 12:47 PT/INR, D-dimer PT 16.2 Sec. (12.2-14.9) H 10/16/18 06:20 INR 1.34 (0.87-1.13) H 10/16/18 06:20 Abnormal lab findings: Abnormal Labs 10/16/18 10/16/18 10/16/18 06:20 06:20 06:20 RDW 17.6 H Plt Count 123 L Seg Neutrophils % 74.5 H PT 16.2 H INR 1.34 H POC ABG pH POC ABG pCO2 POC ABG pO2 Potassium Carbon Dioxide 31 H BUN Glucose 179 H POC Glucose Troponin T 0.071 H NT-Pro-B Natriuret Pep Triglycerides 178 H HDL Cholesterol 63 H 10/16/18 10/16/18 10/16/18 06:20 06:23 08:02 RDW Plt Count Seg Neutrophils % PT INR POC ABG pH 7.172 L 7.223 L POC ABG pCO2 POC ABG pO2 57 L Potassium Carbon Dioxide BUN Glucose POC Glucose Troponin T NT-Pro-B Natriuret Pep 711.7 H Triglycerides HDL Cholesterol 10/16/18 10/16/18 10/16/18 09:18 12:09 14:45 RDW Plt Count Seg Neutrophils % PT INR POC ABG pH POC ABG pCO2 POC ABG pO2 Potassium Carbon Dioxide BUN Glucose POC Glucose 235 H Troponin T 0.059 H 0.045 H D NT-Pro-B Natriuret Pep Triglycerides HDL Cholesterol 10/16/18 10/17/18 10/17/18 17:05 00:18 04:58 RDW 17.4 H Plt Count 125 L Seg Neutrophils % PT INR POC ABG pH POC ABG pCO2 POC ABG pO2 Potassium Carbon Dioxide BUN Glucose POC Glucose 184 H 191 H Troponin T NT-Pro-B Natriuret Pep Triglycerides HDL Cholesterol 10/17/18 10/17/18 10/17/18 04:58 06:04 12:17 RDW Plt Count Seg Neutrophils % PT INR POC ABG pH POC ABG pCO2 POC ABG pO2 Potassium 5.3 H Carbon Dioxide BUN 19 H Glucose 255 H POC Glucose 255 H 435 H Troponin T NT-Pro-B Natriuret Pep Triglycerides HDL Cholesterol 10/17/18 10/17/18 10/18/18 12:47 17:46 00:14 RDW Plt Count Seg Neutrophils % PT INR POC ABG pH POC ABG pCO2 67.2 H POC ABG pO2 66 L Potassium Carbon Dioxide BUN Glucose POC Glucose 233 H 247 H Troponin T NT-Pro-B Natriuret Pep Triglycerides HDL Cholesterol 10/18/18 10/18/18 10/18/18 06:34 12:16 18:14 RDW Plt Count Seg Neutrophils % PT INR POC ABG pH POC ABG pCO2 POC ABG pO2 Potassium Carbon Dioxide BUN Glucose POC Glucose 264 H 324 H 358 H Troponin T NT-Pro-B Natriuret Pep Triglycerides HDL Cholesterol 10/19/18 10/19/18 10/19/18 00:20 05:02 06:22 RDW Plt Count Seg Neutrophils % PT INR POC ABG pH POC ABG pCO2 POC ABG pO2 Potassium Carbon Dioxide 36 H BUN 21 H Glucose 177 H POC Glucose 278 H 222 H Troponin T NT-Pro-B Natriuret Pep Triglycerides HDL Cholesterol Allied health notes reviewed: nursing
--- NOTE | 2018-10-19 14:35 | Progress Note ---
Assessment and Plan Assessment and plan: Patient is a 48-year-old -[place] woman with a history of morbid obesity, chronic systolic CHF, COPD, diabetes, sleep apnea presented to the emergency department from [facility] with complaints of shortness of breath and AMS. Pulse Ox was noted in the 50s. * PRIOR IMAGING ABDOMINAL US- MEDICAL RENAL DISEASE * CXR: Bibasilar opacities may be due to atelectasis, scarring or infection Acute on chronic respiratory failure with Hypercarbia and hypoxia due to COPD excaerbation and CHF exacerbation, Continue current care, Pulmonology Acute COPD exacerbation-Treated with steroids and nebs Acute exacerbation of Chronic systolic heart failure, elevated troponin- Cardiology consult appreciated - Recommend medical management, she was diuresis, now off lasix Diabetes mellitus type 2 with hyperglycemia- cont to adjust insulins and expect improvement as steroids is tapered Acute metabolic encephalopathy, poa HLD- Continue statin Hyperkalemia: Kayexlate given NSTEMI type 2; SECONDARY TO OXYGEN DEMAND, OUTPATIENT CARDIOLOGY EVAL Morbid obesity, bmi 51.6: EXTENSIVE COUNSELLING PROVIDED, Depression by h/o Dilated cardiomyopathy GERD (gastroesophageal reflux disease) Secondary Hypercoagable state Non compliance. Extensive counselling provided History Interval history: Patient was seen and examined. Follow-up on current diagnosis of Respiratory failure. No overnight events reported to me. Patient denies any chest pain, sh ortness breath, nausea/vomiting or severe headaches. Imaging, nursing note, chart, labs and old chart reviewed. Discussed with patient. Patient using curse words for pain medications and I kindly asked her to stop. She doesn't want Methadone, she wants morphine for chronic LBP and whole body pains. She is getting upset by the lack of pain control and her O2 sat started dropping to 85%, I initially increased her FiO2 to 10 liters and sats went back up to 92%, then I turned the 10 liters down and respiratory Therapist came. Hospitalist Physical - Physical exam Narrative exam: Gen: ill appearing, morbid obese bmi 51.6, NAD, Awake, Alert, Orientated HEENT: NCAT, EOMI, PERRL, OP Clear Neck: supple, no adenopathy, no thyromegaly, no JVD CVS/Heart: RRR, normal S1S2, pulses present bilaterally Chest/Lungs: CTA B, Symmetrical chest expansion, good air entry bilaterally GI/Abdomen: soft, NTND, good bowel sounds, no guarding or rebound /Bladder: no suprapubic tenderness, no CVA or paraspinal tenderness Extermity/Skin: dependent edema MSK: FROM x 4 Neuro: CN 2-12 grossly intact, no new focal deficits Psych: calm - Constitutional Vitals: Temp Pulse Resp BP Pulse Ox 97.9 F 112 H 20 89/64 93 10/19/18 08:00 10/19/18 14:20 10/19/18 14:20 10/19/18 14:20 10/19/18 14:20 General appearance: Present: obese. Absent: severe distress Results - Labs CBC & Chem 7: 10/17/18 04:58 10/19/18 05:02 Labs: Laboratory Last Values WBC 8.1 K/mm3 (4.5-11.0) 10/17/18 04:58 RBC 4.07 M/mm3 (3.65-5.03) 10/17/18 04:58 Hgb 12.3 gm/dl (10.1-14.3) 10/17/18 04:58 Hct 39.4 % (30.3-42.9) 10/17/18 04:58 MCV 97 fl (79-97) 10/17/18 04:58 MCH 30 pg (28-32) 10/17/18 04:58 MCHC 31 % (30-34) 10/17/18 04:58 RDW 17.4 % (13.2-15.2) H 10/17/18 04:58 Plt Count 125 K/mm3 (140-440) L 10/17/18 04:58 Lymph % (Auto) Tea Bag Machine Tender 10/17/18 04:58 [place] % (Auto) Tea Bag Machine Tender 10/17/18 04:58 Eos % (Auto) Tea Bag Machine Tender 10/17/18 04:58 Baso % (Auto) Tea Bag Machine Tender 10/17/18 04:58 Lymph # Tea Bag Machine Tender 10/17/18 04:58 [place] # Tea Bag Machine Tender 10/17/18 04:58 Eos # Tea Bag Machine Tender 10/17/18 04:58 Baso # Tea Bag Machine Tender 10/17/18 04:58 Seg Neutrophils % Tea Bag Machine Tender 10/17/18 04:58 Seg Neutrophils # Tea Bag Machine Tender 10/17/18 04:58 PT 16.2 Sec. (12.2-14.9) H 10/16/18 06:20 INR 1.34 (0.87-1.13) H 10/16/18 06:20 APTT 25.2 Sec. (24.2-36.6) 10/16/18 06:20 POC ABG pH 7.364 (7.35-7.45) 10/17/18 12:47 POC ABG pCO2 67.2 (35-45) H 10/17/18 12:47 POC ABG pO2 66 (80-105) L 10/17/18 12:47 POC ABG HCO3 38.3 (22-26 mml/L) 10/17/18 12:47 POC ABG Total CO2 40 (23-27mmol/L) 10/17/18 12:47 POC ABG O2 Sat 91 10/17/18 12:47 POC ABG Base Excess 13 ((-2) - (+3)mmol/L) 10/17/18 12:47 45 % 10/17/18 12:47 Sodium 143 mmol/L (137-145) 10/19/18 05:02 Potassium 4.2 mmol/L (3.6-5.0) D 10/19/18 05:02 Chloride 98.7 mmol/L (98-107) 10/19/18 05:02 Carbon Dioxide 36 mmol/L (22-30) H 10/19/18 05:02 13 mmol/L 10/19/18 05:02 BUN 21 mg/dL (7-17) H 10/19/18 05:02 0.8 mg/dL (0.7-1.2) 10/19/18 05:02 Estimated GFR > 60 ml/min 10/19/18 05:02 26 % 10/19/18 05:02 Glucose 177 mg/dL (65-100) H 10/19/18 05:02 POC Glucose 198 (70-105) H 10/19/18 12:08 Calcium 8.7 mg/dL (8.4-10.2) 10/19/18 05:02 0.045 ng/mL (0.00-0.029) H D 10/16/18 14:45 NT-Pro-B Natriuret Pep 711.7 pg/mL (0-450) H 10/16/18 06:20 Triglycerides 178 mg/dL (2-149) H 10/16/18 06:20 Cholesterol 145 mg/dL (50-199) 10/16/18 06:20 66 mg/dL (50-130) 10/16/18 06:20 63 mg/dL (40-59) H 10/16/18 06:20 2.30 % 10/16/18 06:20 Active Medications - Current Medications Current Medications: Generic Name Dose Route Start Last Admin Trade Name Freq PRN Reason Stop Dose Admin Acetaminophen 650 mg 10/16/18 18:07 10/18/18 14:53 Tylenol PO 650 mg Q6H PRN Administration Pain, Mild (1-3) Acetaminophen/Hydrocodone Bitart 1 each 10/19/18 14:30 Edelstein 10/325 PO Q4H PRN Pain , Severe (7-10) Albuterol 2.5 mg 10/16/18 08:21 Proventil IH Q3HRT PRN Shortness Of Breath Albuterol/Ipratropium 1 ampul 10/16/18 14:00 10/19/18 07:43 Duoneb *Not For Prn Use* IH 1 ampul Q6HRT JOE Administration Aspirin 325 mg 10/16/18 10:00 10/19/18 10:00 Ecotrin PO 325 mg DAILY JOE Administration Atorvastatin Calcium 40 mg 10/16/18 22:00 10/18/18 21:58 Lipitor PO 40 mg QHS JOE Administration Budesonide 0.5 mg 10/16/18 20:00 10/19/18 07:43 Pulmicort IH 0.5 mg Q12HRT JOE Administration Bupropion HCl 100 mg 10/16/18 10:00 10/19/18 09:54 Wellbutrin Sr PO 100 mg DAILY JOE Administration Carbamazepine 200 mg 10/16/18 10:00 10/19/18 09:56 Tegretol PO 200 mg DAILY JOE Administration Carvedilol 6.25 mg 10/16/18 10:00 10/19/18 09:58 Coreg PO 6.25 mg BID JOE Administration Dextrose 50 ml 10/16/18 08:29 D50w (25gm) Syringe IV PRN PRN Hypoglycemia Famotidine 20 mg 10/16/18 10:00 10/19/18 09:56 Pepcid PO 20 mg DAILY JOE Administration Fluticasone Propionate 50 mcg 10/16/18 10:00 10/19/18 10:11 Flonase NS 50 mcg DAILY JOE Administration Furosemide 20 mg 10/18/18 15:00 10/18/18 15:04 Lasix IV 20 mg ONCE JOE Administration Furosemide 20 mg 10/19/18 10:00 10/19/18 09:57 Lasix PO 20 mg QDAY JOE Administration Hydralazine HCl 37.5 mg 10/16/18 09:00 10/19/18 10:07 Apresoline PO 37.5 mg Q8H JOE Administration Insulin Glargine 16 units 10/18/18 17:03 10/18/18 21:57 Lantus SUB-Q 16 units QHS JOE Administration Insulin Human Lispro 0 unit 10/16/18 12:00 10/19/18 12:07 Humalog SUB-Q 2 unit Q6HR JOE Administration Protocol Isosorbide Dinitrate 20 mg 10/16/18 09:00 10/19/18 10:04 Isordil Titradose PO 20 mg Q8H JOE Administration Loratadine 10 mg 10/16/18 10:00 10/19/18 09:55 Claritin PO 10 mg DAILY JOE Administration Lorazepam 0.5 mg 10/16/18 10:00 10/19/18 10:01 Ativan PO 0.5 mg DAILY JOE Administration Losartan Potassium 50 mg 10/16/18 10:00 10/19/18 09:54 Cozaar PO 50 mg QDAY JOE Administration Montelukast Sodium 10 mg 10/16/18 22:00 10/18/18 21:58 Singulair PO 10 mg QHS JOE Administration Morphine Sulfate 2 mg 10/19/18 14:30 Morphine IV Q4H PRN Pain , Severe (7-10) Polyethylene Glycol 17 gm 10/16/18 08:23 Miralax 3350 PO QDAY PRN Constipation Prednisone 40 mg 10/18/18 15:00 10/19/18 09:57 Deltasone PO 40 mg QDAY JOE Administration Quetiapine Fumarate 300 mg 10/16/18 10:00 10/19/18 09:57 Seroquel PO 300 mg BID JOE Administration Senna 17.2 mg 10/16/18 22:00 10/18/18 21:59 Senokot PO 17.2 mg HS JOE Administration Sodium Chloride 10 ml 10/16/18 10:00 10/19/18 09:56 Sodium Chloride Flush Syringe 10 Ml IV 10 ml BID JOE Administration Sodium Chloride 10 ml 10/16/18 08:21 Sodium Chloride Flush Syringe 10 Ml IV PRN PRN LINE FLUSH Sorbitol 30 ml 10/16/18 09:00 10/19/18 09:56 Sorbitol 70% PO 30 ml Q12H JOE Administration Spironolactone 25 mg 10/16/18 10:00 10/19/18 10:05 Aldactone PO 25 mg QDAY JOE Administration Trazodone HCl 50 mg 10/16/18 22:00 10/18/18 21:58 Desyrel PO 50 mg QHS JOE Administration Nutrition/Malnutrition Assess - Dietary Evaluation Nutrition/Malnutrition Findings: Nutrition Notes Start: 10/16/18 11:01 Freq: Status: Active Protocol: Document 10/19/18 08:57 LP (Rec: 10/19/18 09:03 LP [id number]) Nutrition Notes Initial or Follow up Reassessment Current Diagnosis COPD,Diabetes,Heart Failure Current Diet Cardiac/Consistent CHO Labs/Tests Reviewed Pertinent Medications Reviewed Height 5 ft 6 in Weight 145.15 kg [place] Body Weight (kg) 59.09 BMI 51.6 Subjective/Other Information Pt eating 100% of meals and requesting foods that she is unable to have. Burn Absent Trauma Absent #1 Nutrition Diagnosis Predicted suboptimal energy intake As Evidenced by Signs and Symptoms Pt consuming 100% Diagnosis Progress(for reassessment Resolved documentation) Is patient on ventilator? No Is Patient Ambulatory and/or Out of Bed No REE-([facility]-confined to bed) 2520.768 Kcal/Kg value to use for calculation 12 Approximate Energy Requirements Using 1742 kcal/Kg Calculation Used for Recommendations Kcal/kg Additional Notes Pro needs 0.8-1g/kg adjBW: 82- 102g/day Fluid needs per MD Nutrition Intervention Change Diet Order: Cardiac/consistent CHO Goal #1 PO tolerance Goal #2 PO intake to meet at least 75% energy and pro needs Anticipated Discharge Needs: Cardiac/consistent CHO Revisit per MD consult or patient Sign Off request:
[2018-10-19] MEDS: MORPHINE IV PRN ×2 (14:50→23:10)
[2018-10-19] MEDS: DESYREL PO SCH (22:20)
[2018-10-19] MEDS: SENOKOT PO SCH (22:21)
[2018-10-19] MEDS: SINGULAIR PO SCH (22:23)
[2018-10-20] MEDS: HumaLOG SUB-Q SCH ×4 (01:46→18:39)
[2018-10-20] MEDS: LANTUS SUB-Q SCH ×2 (01:47→23:22)
[2018-10-20] MEDS: APRESOLINE PO SCH ×3 (01:48→17:33)
[2018-10-20] MEDS: ISORDIL TITRADOSE PO SCH ×3 (01:48→17:32)
[2018-10-20] MEDS: DUONEB *Not for PRN Use IH SCH ×4 (03:39→19:48)
[2018-10-20] MEDS: MORPHINE IV PRN ×3 (03:59→22:33)
[2018-10-20 05:39] LABS: Hematocrit 38.1 % (30.3-42.9); Mean Corpuscular HGB Conc 32 % (30-34); Mean Corpuscular Volume 94 fl (79-97); Red Blood Count 4.06 M/mm3 (3.65-5.03); Red Cell Distribution Width 17.4 % (13.2-15.2)
[2018-10-20 05:40] LABS: Platelet Count 94 K/mm3 (140-440)
[2018-10-20 05:59] LABS: BUN/Creatinine Ratio 33; Blood Urea Nitrogen 20 mg/dL (7-17); Calcium 8.8 mg/dL (8.4-10.2); Hemolysis Index 8
--- NOTE | 2018-10-20 06:47 | Progress Note ---
Assessment and Plan Acute on chronic hypoxemic hypercapnic respiratory failure. Acute COPD exacerbation Acute on chronic systolic CHF exacerbation, non-ischemic NSTEMI Psychizoaffective disorder Elevated D-dimer. Obstructive sleep apnea. History of hypertension. History of bipolar disorder. Tobacco use disorder. - continue prednisone 40 mg p.o. daily (1st dose today) - continue supplemental oxygen to keep O2 sats > 90% (transitioned off HFNC) - continue BIPAP scheduled qhs - continue inhaled corticosteroids - continue LABA (Brovana) - continue VTE and stress ulcer prophylaxis - resume maintenance diuresis for CHF (Lasix 20 mg p.o. daily) - Continue empiric antibiotics to complete course - continue SSI for glycemic control with target blood glucose <180mg/dL - continue cardio-protective measures - Mobility program for pressure ulcer prophylaxis - continue PT/OT as tolerated - tobacco abstinence strongly counseled - continue other care per attending / other consultants ..... d/c planning ongoing and ok respiratory-chiu ... re-evaluate in am & prn Subjective Date of service: 10/20/18 Principal diagnosis: Ac on ch hypoxemic hypercapnic resp failure; Acute COPD exacerbation; CHF Interval history: Patient is seen today for: Acute on chronic hypoxemic hypercapnic respiratory failure; Acute COPD exacerbation; Acute on chronic systolic CHF exacerbation Seen and examined at bedside; 24hour events reviewed; nursing and respiratory care staff consulted; no adverse overnight events reported to me; resting peacefully is bed; No N/V/F/C; no chest pains or palpitations Objective Vital Signs - 12hr 10/19/18 10/19/18 10/19/18 18:50 19:00 19:10 Temperature Pulse Rate 111 H 110 H 110 H Pulse Rate [ Bilateral] Pulse Rate [ From Monitor] Respiratory 22 22 26 H Rate Respiratory Rate [Bilateral ] Respiratory Rate [Throat] Blood Pressure 95/75 95/75 86/54 O2 Sat by Pulse 95 96 96 Oximetry 10/19/18 10/19/18 10/19/18 19:20 19:29 19:30 Temperature Pulse Rate 109 H 108 H Pulse Rate [ 99 H Bilateral] Pulse Rate [ From Monitor] Respiratory 17 11 L Rate Respiratory 15 Rate [Bilateral ] Respiratory Rate [Throat] Blood Pressure 123/60 123/60 O2 Sat by Pulse 96 99 Oximetry 10/19/18 10/19/18 10/19/18 19:40 19:41 19:50 Temperature Pulse Rate 108 H 109 H Pulse Rate [ 91 H Bilateral] Pulse Rate [ From Monitor] Respiratory 25 H 25 H Rate Respiratory 18 Rate [Bilateral ] Respiratory Rate [Throat] Blood Pressure 123/60 86/54 O2 Sat by Pulse 96 96 Oximetry 10/19/18 10/19/18 10/19/18 20:00 20:09 20:10 Temperature 98.5 F Pulse Rate 110 H 108 H Pulse Rate [ Bilateral] Pulse Rate [ 107 H From Monitor] Respiratory 21 26 H Rate Respiratory Rate [Bilateral ] Respiratory Rate [Throat] Blood Pressure 86/54 121/77 O2 Sat by Pulse 96 96 Oximetry 10/19/18 10/19/18 10/19/18 20:20 20:30 20:40 Temperature Pulse Rate 108 H 107 H 102 H Pulse Rate [ Bilateral] Pulse Rate [ From Monitor] Respiratory 28 H 22 21 Rate Respiratory Rate [Bilateral ] Respiratory Rate [Throat] Blood Pressure 121/77 121/77 121/77 O2 Sat by Pulse 96 95 96 Oximetry 10/19/18 10/19/18 10/19/18 20:50 21:00 21:10 Temperature Pulse Rate 102 H 103 H 105 H Pulse Rate [ Bilateral] Pulse Rate [ From Monitor] Respiratory 22 21 29 H Rate Respiratory Rate [Bilateral ] Respiratory Rate [Throat] Blood Pressure 121/77 121/77 155/105 O2 Sat by Pulse 98 96 96 Oximetry 10/19/18 10/19/18 10/19/18 21:20 21:30 21:40 Temperature Pulse Rate 100 H 104 H 102 H Pulse Rate [ Bilateral] Pulse Rate [ From Monitor] Respiratory 23 21 14 Rate Respiratory Rate [Bilateral ] Respiratory Rate [Throat] Blood Pressure 155/105 155/105 155/105 O2 Sat by Pulse 97 96 96 Oximetry 10/19/18 10/19/18 10/19/18 21:50 22:00 22:10 Temperature Pulse Rate 102 H 100 H 96 H Pulse Rate [ Bilateral] Pulse Rate [ From Monitor] Respiratory 20 24 21 Rate Respiratory Rate [Bilateral ] Respiratory 21 Rate [Throat] Blood Pressure 155/105 155/105 128/107 O2 Sat by Pulse 96 97 97 Oximetry 10/19/18 10/19/18 10/19/18 22:19 22:20 22:30 Temperature Pulse Rate 98 H 100 H 98 H Pulse Rate [ Bilateral] Pulse Rate [ From Monitor] Respiratory 17 19 Rate Respiratory Rate [Bilateral ] Respiratory Rate [Throat] Blood Pressure 128/107 128/107 128/107 O2 Sat by Pulse 94 98 Oximetry 10/19/18 10/19/18 10/19/18 22:40 22:50 23:00 Temperature Pulse Rate 101 H 97 H 96 H Pulse Rate [ Bilateral] Pulse Rate [ From Monitor] Respiratory 21 24 21 Rate Respiratory Rate [Bilateral ] Respiratory Rate [Throat] Blood Pressure 128/107 128/107 128/107 O2 Sat by Pulse 97 97 93 Oximetry 10/19/18 10/19/18 10/19/18 23:10 23:14 23:20 Temperature Pulse Rate 96 H 98 H 93 H Pulse Rate [ Bilateral] Pulse Rate [ From Monitor] Respiratory 16 17 17 Rate Respiratory Rate [Bilateral ] Respiratory Rate [Throat] Blood Pressure 138/97 155/105 138/97 O2 Sat by Pulse 93 93 94 Oximetry 10/19/18 10/19/18 10/19/18 23:30 23:40 23:50 Temperature Pulse Rate 94 H 97 H 92 H Pulse Rate [ Bilateral] Pulse Rate [ From Monitor] Respiratory 18 18 15 Rate Respiratory Rate [Bilateral ] Respiratory Rate [Throat] Blood Pressure 138/97 138/97 138/97 O2 Sat by Pulse 94 94 93 Oximetry 10/19/18 10/20/18 10/20/18 23:51 00:00 00:10 Temperature 98.1 F Pulse Rate 95 H 102 H Pulse Rate [ Bilateral] Pulse Rate [ 99 H From Monitor] Respiratory 16 20 Rate Respiratory Rate [Bilateral ] Respiratory Rate [Throat] Blood Pressure 138/97 141/81 O2 Sat by Pulse 93 93 Oximetry 10/20/18 10/20/18 10/20/18 00:20 00:30 00:40 Temperature Pulse Rate 103 H 105 H 107 H Pulse Rate [ Bilateral] Pulse Rate [ From Monitor] Respiratory 19 21 22 Rate Respiratory Rate [Bilateral ] Respiratory Rate [Throat] Blood Pressure 141/81 141/81 141/81 O2 Sat by Pulse 93 92 93 Oximetry 10/20/18 10/20/18 10/20/18 00:50 01:00 01:10 Temperature Pulse Rate 103 H 99 H 98 H Pulse Rate [ Bilateral] Pulse Rate [ From Monitor] Respiratory 17 15 14 Rate Respiratory Rate [Bilateral ] Respiratory Rate [Throat] Blood Pressure 141/81 146/72 146/72 O2 Sat by Pulse 94 93 94 Oximetry 10/20/18 10/20/18 10/20/18 01:20 01:30 01:40 Temperature Pulse Rate 97 H 102 H 95 H Pulse Rate [ Bilateral] Pulse Rate [ From Monitor] Respiratory 13 15 17 Rate Respiratory Rate [Bilateral ] Respiratory Rate [Throat] Blood Pressure 146/72 146/72 146/72 O2 Sat by Pulse 94 91 93 Oximetry 10/20/18 10/20/18 10/20/18 01:48 01:50 02:00 Temperature Pulse Rate 98 H 96 H 98 H Pulse Rate [ Bilateral] Pulse Rate [ From Monitor] Respiratory 15 17 Rate Respiratory Rate [Bilateral ] Respiratory Rate [Throat] Blood Pressure 146/72 146/72 137/73 O2 Sat by Pulse 96 94 Oximetry 10/20/18 10/20/18 10/20/18 02:10 02:20 02:30 Temperature Pulse Rate 96 H 97 H 97 H Pulse Rate [ Bilateral] Pulse Rate [ From Monitor] Respiratory 18 17 19 Rate Respiratory Rate [Bilateral ] Respiratory Rate [Throat] Blood Pressure 137/73 137/73 137/73 O2 Sat by Pulse 95 98 96 Oximetry 10/20/18 10/20/18 10/20/18 02:40 02:50 03:00 Temperature Pulse Rate 101 H 94 H 93 H Pulse Rate [ Bilateral] Pulse Rate [ From Monitor] Respiratory 18 15 14 Rate Respiratory Rate [Bilateral ] Respiratory Rate [Throat] Blood Pressure 137/73 137/73 140/81 O2 Sat by Pulse 96 96 97 Oximetry 10/20/18 10/20/18 10/20/18 03:10 03:20 03:30 Temperature Pulse Rate 93 H 91 H 88 Pulse Rate [ Bilateral] Pulse Rate [ From Monitor] Respiratory 14 14 16 Rate Respiratory Rate [Bilateral ] Respiratory Rate [Throat] Blood Pressure 140/81 140/81 140/81 O2 Sat by Pulse 97 98 99 Oximetry 10/20/18 10/20/18 10/20/18 03:40 03:50 03:56 Temperature Pulse Rate 89 92 H Pulse Rate [ 93 H 97 H Bilateral] Pulse Rate [ From Monitor] Respiratory 12 15 Rate Respiratory 17 19 Rate [Bilateral ] Respiratory Rate [Throat] Blood Pressure 140/81 140/81 O2 Sat by Pulse 97 98 Oximetry 10/20/18 10/20/18 10/20/18 03:59 04:00 04:01 Temperature 97.7 F Pulse Rate 90 Pulse Rate [ Bilateral] Pulse Rate [ 89 From Monitor] Respiratory 18 15 Rate Respiratory Rate [Bilateral ] Respiratory Rate [Throat] Blood Pressure 140/81 O2 Sat by Pulse 99 Oximetry Constitutional: no acute distress, other Eyes: non-icteric ENT: oropharynx moist, other (mallampati 4) Neck: supple, no lymphadenopathy, no JVD, other (large neck circumference) Effort: mildly labored Ascultation: Bilateral: diminished breath sounds, rhonchi Percussion: Bilateral: not dull Cardiovascular: regular rate and rhythm Gastrointestinal: normoactive bowel sounds, soft, non-tender, non-distended Integumentary: rash (stasis dermatitis rash) Extremities: no cyanosis, pulses normal, no ischemia or petechiae, edema Neurologic: normal mental status, non-focal exam, pupils equal and round, CN II- XII normal, motor strength normal and Psychiatric: mood appropriate, affect normal CBC and BMP: 10/20/18 05:15 10/20/18 05:15 ABG, PT/INR, D-dimer: ABG POC ABG pH 7.364 (7.35-7.45) 10/17/18 12:47 POC ABG pCO2 67.2 (35-45) H 10/17/18 12:47 POC ABG pO2 66 (80-105) L 10/17/18 12:47 POC ABG HCO3 38.3 (22-26 mml/L) 10/17/18 12:47 POC ABG Total CO2 40 (23-27mmol/L) 10/17/18 12:47 POC ABG O2 Sat 91 10/17/18 12:47 PT/INR, D-dimer PT 16.2 Sec. (12.2-14.9) H 10/16/18 06:20 INR 1.34 (0.87-1.13) H 10/16/18 06:20 Abnormal lab findings: Abnormal Labs 10/16/18 10/16/18 10/16/18 06:20 06:20 06:20 RDW 17.6 H Plt Count 123 L Seg Neutrophils % 74.5 H PT 16.2 H INR 1.34 H POC ABG pH POC ABG pCO2 POC ABG pO2 Potassium Carbon Dioxide 31 H BUN Creatinine Glucose 179 H POC Glucose Troponin T 0.071 H NT-Pro-B Natriuret Pep Triglycerides 178 H HDL Cholesterol 63 H 10/16/18 10/16/18 10/16/18 06:20 06:23 08:02 RDW Plt Count Seg Neutrophils % PT INR POC ABG pH 7.172 L 7.223 L POC ABG pCO2 POC ABG pO2 57 L Potassium Carbon Dioxide BUN Creatinine Glucose POC Glucose Troponin T NT-Pro-B Natriuret Pep 711.7 H Triglycerides HDL Cholesterol 10/16/18 10/16/18 10/16/18 09:18 12:09 14:45 RDW Plt Count Seg Neutrophils % PT INR POC ABG pH POC ABG pCO2 POC ABG pO2 Potassium Carbon Dioxide BUN Creatinine Glucose POC Glucose 235 H Troponin T 0.059 H 0.045 H D NT-Pro-B Natriuret Pep Triglycerides HDL Cholesterol 10/16/18 10/17/18 10/17/18 17:05 00:18 04:58 RDW 17.4 H Plt Count 125 L Seg Neutrophils % PT INR POC ABG pH POC ABG pCO2 POC ABG pO2 Potassium Carbon Dioxide BUN Creatinine Glucose POC Glucose 184 H 191 H Troponin T NT-Pro-B Natriuret Pep Triglycerides HDL Cholesterol 10/17/18 10/17/18 10/17/18 04:58 06:04 12:17 RDW Plt Count Seg Neutrophils % PT INR POC ABG pH POC ABG pCO2 POC ABG pO2 Potassium 5.3 H Carbon Dioxide BUN 19 H Creatinine Glucose 255 H POC Glucose 255 H 435 H Troponin T NT-Pro-B Natriuret Pep Triglycerides HDL Cholesterol 10/17/18 10/17/18 10/18/18 12:47 17:46 00:14 RDW Plt Count Seg Neutrophils % PT INR POC ABG pH POC ABG pCO2 67.2 H POC ABG pO2 66 L Potassium Carbon Dioxide BUN Creatinine Glucose POC Glucose 233 H 247 H Troponin T NT-Pro-B Natriuret Pep Triglycerides HDL Cholesterol 10/18/18 10/18/18 10/18/18 06:34 12:16 18:14 RDW Plt Count Seg Neutrophils % PT INR POC ABG pH POC ABG pCO2 POC ABG pO2 Potassium Carbon Dioxide BUN Creatinine Glucose POC Glucose 264 H 324 H 358 H Troponin T NT-Pro-B Natriuret Pep Triglycerides HDL Cholesterol 10/19/18 10/19/18 10/19/18 00:20 05:02 06:22 RDW Plt Count Seg Neutrophils % PT INR POC ABG pH POC ABG pCO2 POC ABG pO2 Potassium Carbon Dioxide 36 H BUN 21 H Creatinine Glucose 177 H POC Glucose 278 H 222 H Troponin T NT-Pro-B Natriuret Pep Triglycerides HDL Cholesterol 10/19/18 10/19/18 10/19/18 12:08 17:49 18:10 RDW Plt Count Seg Neutrophils % PT INR POC ABG pH POC ABG pCO2 POC ABG pO2 Potassium Carbon Dioxide BUN Creatinine Glucose POC Glucose 198 H 330 H 112 H Troponin T NT-Pro-B Natriuret Pep Triglycerides HDL Cholesterol 10/19/18 10/20/18 10/20/18 23:53 05:15 05:15 RDW 17.4 H Plt Count 94 L Seg Neutrophils % PT INR POC ABG pH POC ABG pCO2 POC ABG pO2 Potassium Carbon Dioxide 36 H BUN 20 H Creatinine 0.6 L Glucose 153 H POC Glucose 344 H Troponin T NT-Pro-B Natriuret Pep Triglycerides HDL Cholesterol 10/20/18 06:02 RDW Plt Count Seg Neutrophils % PT INR POC ABG pH POC ABG pCO2 POC ABG pO2 Potassium Carbon Dioxide BUN Creatinine Glucose POC Glucose 145 H Troponin T NT-Pro-B Natriuret Pep Triglycerides HDL Cholesterol Allied health notes reviewed: nursing
[2018-10-20] MEDS: PULMICORT IH SCH ×2 (08:49→19:58)
[2018-10-20] MEDS: COZAAR PO SCH (09:47)
[2018-10-20] MEDS: PEPCID PO SCH (09:48)
[2018-10-20] MEDS: COREG PO SCH ×2 (09:48→22:34)
[2018-10-20] MEDS: ECOTRIN PO SCH (09:48)
[2018-10-20] MEDS: CLARITIN PO SCH (09:48)
[2018-10-20] MEDS: ALDACTONE PO SCH (09:49)
[2018-10-20] MEDS: LASIX PO SCH (09:49)
[2018-10-20] MEDS: WELLBUTRIN SR PO SCH (09:49)
[2018-10-20] MEDS: SORBITOL 70% PO SCH (09:49)
[2018-10-20] MEDS: DELTASONE PO SCH (09:49)
[2018-10-20] MEDS: ATIVAN PO SCH (09:49)
[2018-10-20] MEDS: FLONASE NS SCH (09:54)
[2018-10-20] MEDS: SODIUM CHLORIDE FLUSH SYRINGE 10 ML IV SCH ×2 (10:03→22:37)
--- NOTE | 2018-10-20 14:01 | Progress Note ---
Assessment and Plan Assessment and plan: Patient is a 48-year-old -[place]ian woman from [facility] with a history of morbid obesity, remote brain surgery, chronic systolic CHF, COPD, diabetes, sleep apnea presented to [facility] with shortness of breath and AMS. Pulse Ox was noted in the 50s. * PRIOR IMAGING ABDOMINAL US- MEDICAL RENAL DISEASE * CXR: Bibasilar opacities may be due to atelectasis, scarring or infection Acute on chronic respiratory failure with Hypercarbia and hypoxia due to COPD excaerbation and CHF exacerbation, Continue current care, Pulmonology Acute COPD exacerbation-Treated with steroids and nebs Acute exacerbation of Chronic systolic heart failure, elevated troponin- Cardiology consult appreciated - Recommend medical management, she was diuresis, now off lasix Diabetes mellitus type 2 with hyperglycemia- cont to adjust insulins and expect improvement as steroids is tapered Acute metabolic encephalopathy, poa HLD- Continue statin Hyperkalemia: Kayexlate given NSTEMI type 2; SECONDARY TO OXYGEN DEMAND, OUTPATIENT CARDIOLOGY EVAL Morbid obesity, bmi 51.6: EXTENSIVE COUNSELLING PROVIDED, Depression by h/o Dilated cardiomyopathy GERD (gastroesophageal reflux disease) Secondary Hypercoagable state Non compliance. Extensive counselling provided downgrade out of the ICU, anticipate discharge back to [facility] if O2 sat stable History Interval history: Patient was seen and examined. Follow-up on current diagnosis of Respiratory f ailure. No overnight events reported to me. Patient denies any chest pain, shortness breath, nausea/vomiting or severe headaches. Imaging, nursing note, chart, labs and old chart reviewed. Discussed with patient. Patient using curse words for pain medications and I kindly asked her to stop. She doesn't want Methadone, she wants morphine for chronic LBP and whole body pains. She is getting upset by the lack of pain control and her O2 sat started dropping to 85%, I initially increased her FiO2 to 10 liters and sats went back up to 92%, then I turned the 10 liters down and respiratory Therapist came. Hospitalist Physical - Physical exam Narrative exam: Gen: ill appearing, morbid obese bmi 51.6, NAD, Awake, Alert, Orientated HEENT: NCAT, EOMI, PERRL, OP Clear Neck: supple, no adenopathy, no thyromegaly, no JVD CVS/Heart: RRR, normal S1S2, pulses present bilaterally Chest/Lungs: CTA B, Symmetrical chest expansion, good air entry bilaterally GI/Abdomen: soft, NTND, good bowel sounds, no guarding or rebound /Bladder: no suprapubic tenderness, no CVA or paraspinal tenderness Extermity/Skin: dependent edema MSK: FROM x 4 Neuro: CN 2-12 grossly intact, no new focal deficits Psych: calm - Constitutional Vitals: Temp Pulse Resp BP Pulse Ox 97.7 F 111 H 24 145/115 90 10/20/18 04:01 10/20/18 12:20 10/20/18 12:20 10/20/18 12:20 10/20/18 12:20 General appearance: Present: obese. Absent: severe distress Results - Labs CBC & Chem 7: 10/20/18 05:15 10/20/18 05:15 Labs: Laboratory Last Values WBC 6.0 K/mm3 (4.5-11.0) 10/20/18 05:15 RBC 4.06 M/mm3 (3.65-5.03) 10/20/18 05:15 Hgb 12.0 gm/dl (10.1-14.3) 10/20/18 05:15 Hct 38.1 % (30.3-42.9) 10/20/18 05:15 MCV 94 fl (79-97) 10/20/18 05:15 MCH 30 pg (28-32) 10/20/18 05:15 MCHC 32 % (30-34) 10/20/18 05:15 RDW 17.4 % (13.2-15.2) H 10/20/18 05:15 Plt Count 94 K/mm3 (140-440) L 10/20/18 05:15 Lymph % (Auto) Featherer 10/17/18 04:58 [place] % (Auto) Featherer 10/17/18 04:58 Eos % (Auto) Featherer 10/17/18 04:58 Baso % (Auto) Featherer 10/17/18 04:58 Lymph # Featherer 10/17/18 04:58 [place] # Featherer 10/17/18 04:58 Eos # Featherer 10/17/18 04:58 Baso # Featherer 10/17/18 04:58 Seg Neutrophils % Featherer 10/17/18 04:58 Seg Neutrophils # Featherer 10/17/18 04:58 PT 16.2 Sec. (12.2-14.9) H 10/16/18 06:20 INR 1.34 (0.87-1.13) H 10/16/18 06:20 APTT 25.2 Sec. (24.2-36.6) 10/16/18 06:20 POC ABG pH 7.364 (7.35-7.45) 10/17/18 12:47 POC ABG pCO2 67.2 (35-45) H 10/17/18 12:47 POC ABG pO2 66 (80-105) L 10/17/18 12:47 POC ABG HCO3 38.3 (22-26 mml/L) 10/17/18 12:47 POC ABG Total CO2 40 (23-27mmol/L) 10/17/18 12:47 POC ABG O2 Sat 91 10/17/18 12:47 POC ABG Base Excess 13 ((-2) - (+3)mmol/L) 10/17/18 12:47 45 % 10/17/18 12:47 Sodium 144 mmol/L (137-145) 10/20/18 05:15 Potassium 4.0 mmol/L (3.6-5.0) 10/20/18 05:15 Chloride 101.0 mmol/L (98-107) 10/20/18 05:15 Carbon Dioxide 36 mmol/L (22-30) H 10/20/18 05:15 11 mmol/L 10/20/18 05:15 BUN 20 mg/dL (7-17) H 10/20/18 05:15 0.6 mg/dL (0.7-1.2) L 10/20/18 05:15 Estimated GFR > 60 ml/min 10/20/18 05:15 33 % 10/20/18 05:15 Glucose 153 mg/dL (65-100) H 10/20/18 05:15 POC Glucose 192 (70-105) H 10/20/18 12:25 Calcium 8.8 mg/dL (8.4-10.2) 10/20/18 05:15 0.045 ng/mL (0.00-0.029) H D 10/16/18 14:45 NT-Pro-B Natriuret Pep 711.7 pg/mL (0-450) H 10/16/18 06:20 Triglycerides 178 mg/dL (2-149) H 10/16/18 06:20 Cholesterol 145 mg/dL (50-199) 10/16/18 06:20 66 mg/dL (50-130) 10/16/18 06:20 63 mg/dL (40-59) H 10/16/18 06:20 2.30 % 10/16/18 06:20 Active Medications - Current Medications Current Medications: Generic Name Dose Route Start Last Admin Trade Name Freq PRN Reason Stop Dose Admin Acetaminophen 650 mg 10/16/18 18:07 10/18/18 14:53 Tylenol PO 650 mg Q6H PRN Administration Pain, Mild (1-3) Acetaminophen/Hydrocodone Bitart 1 each 10/19/18 14:30 [place] 10/325 PO Q4H PRN Pain , Severe (7-10) Albuterol 2.5 mg 10/16/18 08:21 Proventil IH Q3HRT PRN Shortness Of Breath Albuterol/Ipratropium 1 ampul 10/16/18 14:00 10/20/18 08:49 Duoneb *Not For Prn Use* IH 1 ampul Q6HRT JOE Administration Aspirin 325 mg 10/16/18 10:00 10/20/18 09:48 Ecotrin PO 325 mg DAILY JOE Administration Atorvastatin Calcium 40 mg 10/16/18 22:00 10/19/18 22:20 Lipitor PO 40 mg QHS JOE Administration Budesonide 0.5 mg 10/16/18 20:00 10/20/18 08:49 Pulmicort IH 0.5 mg Q12HRT JOE Administration Bupropion HCl 100 mg 10/16/18 10:00 10/20/18 09:49 Wellbutrin Sr PO 100 mg DAILY JOE Administration Carbamazepine 200 mg 10/16/18 10:00 10/20/18 09:48 Tegretol PO 200 mg DAILY JOE Administration Carvedilol 6.25 mg 10/16/18 10:00 10/20/18 09:48 Coreg PO 6.25 mg BID JOE Administration Dextrose 50 ml 10/16/18 08:29 D50w (25gm) Syringe IV PRN PRN Hypoglycemia Famotidine 20 mg 10/16/18 10:00 10/20/18 09:48 Pepcid PO 20 mg DAILY JOE Administration Fluticasone Propionate 50 mcg 10/16/18 10:00 10/20/18 09:54 Flonase NS 50 mcg DAILY JOE Administration Furosemide 20 mg 10/18/18 15:00 10/18/18 15:04 Lasix IV 20 mg ONCE JOE Administration Furosemide 20 mg 10/19/18 10:00 10/20/18 09:49 Lasix PO 20 mg QDAY JOE Administration Hydralazine HCl 37.5 mg 10/16/18 09:00 10/20/18 09:50 Apresoline PO 37.5 mg Q8H JOE Administration Insulin Glargine 16 units 10/18/18 17:03 10/20/18 01:47 Lantus SUB-Q 16 units QHS JOE Administration Insulin Human Lispro 0 unit 10/16/18 12:00 10/20/18 12:28 Humalog SUB-Q 2 unit Q6HR JOE Administration Protocol Isosorbide Dinitrate 20 mg 10/16/18 09:00 10/20/18 09:48 Isordil Titradose PO 20 mg Q8H JOE Administration Loratadine 10 mg 10/16/18 10:00 10/20/18 09:48 Claritin PO 10 mg DAILY JOE Administration Lorazepam 0.5 mg 10/16/18 10:00 10/20/18 09:49 Ativan PO 0.5 mg DAILY JOE Administration Losartan Potassium 50 mg 10/16/18 10:00 10/20/18 09:47 Cozaar PO 50 mg QDAY JOE Administration Montelukast Sodium 10 mg 10/16/18 22:00 10/19/18 22:23 Singulair PO 10 mg QHS JOE Administration Morphine Sulfate 2 mg 10/19/18 14:30 10/20/18 10:02 Morphine IV 2 mg Q4H PRN Administration Pain , Severe (7-10) Polyethylene Glycol 17 gm 10/16/18 08:23 Miralax 3350 PO QDAY PRN Constipation Prednisone 40 mg 10/18/18 15:00 10/20/18 09:49 Deltasone PO 40 mg QDAY JOE Administration Quetiapine Fumarate 300 mg 10/16/18 10:00 10/20/18 09:49 Seroquel PO 300 mg BID JOE Administration Senna 17.2 mg 10/16/18 22:00 10/19/18 22:21 Senokot PO 17.2 mg HS JOE Administration Sodium Chloride 10 ml 10/16/18 10:00 10/20/18 10:03 Sodium Chloride Flush Syringe 10 Ml IV 10 ml BID JOE Administration Sodium Chloride 10 ml 10/16/18 08:21 Sodium Chloride Flush Syringe 10 Ml IV PRN PRN LINE FLUSH Sorbitol 30 ml 10/16/18 09:00 10/20/18 09:49 Sorbitol 70% PO 30 ml Q12H JOE Administration Spironolactone 25 mg 10/16/18 10:00 10/20/18 09:49 Aldactone PO 25 mg QDAY JOE Administration Trazodone HCl 50 mg 10/16/18 22:00 10/19/18 22:20 Desyrel PO 50 mg QHS JOE Administration Nutrition/Malnutrition Assess - Dietary Evaluation Nutrition/Malnutrition Findings: Nutrition Notes Start: 10/16/18 11:01 Freq: Status: Active Protocol: Document 10/19/18 08:57 LP (Rec: 10/19/18 09:03 LP [id number]) Nutrition Notes Initial or Follow up Reassessment Current Diagnosis COPD,Diabetes,Heart Failure Current Diet Cardiac/Consistent CHO Labs/Tests Reviewed Pertinent Medications Reviewed Height 5 ft 6 in Weight 145.15 kg Center Body Weight (kg) 59.09 BMI 51.6 Subjective/Other Information Pt eating 100% of meals and requesting foods that she is unable to have. Burn Absent Trauma Absent #1 Nutrition Diagnosis Predicted suboptimal energy intake As Evidenced by Signs and Symptoms Pt consuming 100% Diagnosis Progress(for reassessment Resolved documentation) Is patient on ventilator? No Is Patient Ambulatory and/or Out of Bed No REE-([facility]-confined to bed) 2520.768 Kcal/Kg value to use for calculation 12 Approximate Energy Requirements Using 1742 kcal/Kg Calculation Used for Recommendations Kcal/kg Additional Notes Pro needs 0.8-1g/kg adjBW: 82- 102g/day Fluid needs per MD Nutrition Intervention Change Diet Order: Cardiac/consistent CHO Goal #1 PO tolerance Goal #2 PO intake to meet at least 75% energy and pro needs Anticipated Discharge Needs: Cardiac/consistent CHO Revisit per MD consult or patient Sign Off request:
[2018-10-20] MEDS: LASIX IV SCH (17:32)
[2018-10-20] MEDS: NORCO 10/325 PO PRN (17:34)
[2018-10-20] MEDS: SINGULAIR PO SCH (22:33)
[2018-10-20] MEDS: DESYREL PO SCH (22:33)
[2018-10-20] MEDS: SENOKOT PO SCH (22:34)
[2018-10-21] MEDS: APRESOLINE PO SCH ×3 (02:11→18:04)
[2018-10-21] MEDS: ISORDIL TITRADOSE PO SCH ×3 (02:12→18:16)
[2018-10-21] MEDS: NORCO 10/325 PO PRN ×2 (02:15→09:07)
[2018-10-21] MEDS: DUONEB *Not for PRN Use IH SCH ×4 (02:24→20:29)
[2018-10-21] MEDS: SORBITOL 70% PO SCH ×3 (02:29→22:11)
[2018-10-21] MEDS: PULMICORT IH SCH ×2 (07:31→20:29)
--- NOTE | 2018-10-21 08:14 | Progress Note ---
Assessment and Plan Acute on chronic hypoxemic hypercapnic respiratory failure. Acute COPD exacerbation Acute on chronic systolic CHF exacerbation, non-ischemic NSTEMI Psychizoaffective disorder Elevated D-dimer. Obstructive sleep apnea. History of hypertension. History of bipolar disorder. Tobacco use disorder Thrombocytopenia - NIPPV QHS and q4h [rn -Oxygen restrictive strategies -Keep oxygen saturations at 88-90% -Bronchodilators -Aspiration precautions -Steroid, start taper -Accucheck with glycemic control while on steroids -Continue chronic home medications - VTE and stress ulcer prophylaxis - Gentle diuresis while monitoring renal function, hemodynamics and electrolyte profile -SSI for glycemic control with target blood glucose <180mg/dL -Cardio-protective measures -Maintenance of sleep-wake cycle, avoid further delirium - Mobility program for pressure ulcer prophylaxis -PT/OT - Smoking cessation counselling -Avoid narcotic analgesia CODE STATUS: FULL CONDITION: FAIR PROGNOSIS: FAIR Discussed care plan with RT/RN Subjective Date of service: 10/21/18 Principal diagnosis: Ac on ch hypoxemic hypercapnic resp failure; Acute COPD exacerbation; CHF Interval history: Patient is seen today for: Acute on chronic hypoxemic hypercapnic respiratory failure; Acute COPD exacerbation; Acute on chronic systolic CHF exacerbation Seen and examined at bedside; 24hour events reviewed; nursing and respiratory c are staff consulted; no adverse overnight events reported to me; resting peacefully is bed; feels better; weaned off HFNC; denies acute chest pains or palpitations; No N/V/F/C, has constipation Objective Vital Signs - 12hr 10/20/18 10/20/18 10/20/18 22:00 22:34 23:36 Temperature 98.1 F Pulse Rate 100 H 94 H Pulse Rate [ Bilateral] Respiratory 20 Rate Respiratory Rate [Bilateral ] Blood Pressure 123/81 143/95 O2 Sat by Pulse 89 Oximetry 10/21/18 10/21/18 10/21/18 02:11 02:12 02:25 Temperature Pulse Rate Pulse Rate [ 89 Bilateral] Respiratory Rate Respiratory 94 H Rate [Bilateral ] Blood Pressure 143/95 143/95 O2 Sat by Pulse Oximetry 10/21/18 10/21/18 10/21/18 02:27 02:37 03:51 Temperature 98.4 F Pulse Rate 88 84 Pulse Rate [ 91 H Bilateral] Respiratory 22 24 Rate Respiratory 94 H Rate [Bilateral ] Blood Pressure 135/90 O2 Sat by Pulse 97 96 Oximetry 10/21/18 10/21/18 07:31 07:38 Temperature Pulse Rate Pulse Rate [ 90 Bilateral] Respiratory Rate Respiratory 19 Rate [Bilateral ] Blood Pressure O2 Sat by Pulse 96 Oximetry Constitutional: no acute distress, other Eyes: non-icteric ENT: oropharynx moist, other (mallampati 4) Neck: supple, no lymphadenopathy, no JVD, other (large neck circumference) Effort: mildly labored Ascultation: Bilateral: diminished breath sounds, rhonchi Percussion: Bilateral: not dull Cardiovascular: regular rate and rhythm Gastrointestinal: normoactive bowel sounds, soft, non-tender, non-distended Integumentary: rash (stasis dermatitis rash) Extremities: no cyanosis, pulses normal, no ischemia or petechiae, edema Neurologic: normal mental status, non-focal exam, pupils equal and round, CN II- XII normal, motor strength normal and Psychiatric: mood appropriate, affect normal CBC and BMP: 10/20/18 05:15 10/20/18 05:15 ABG, PT/INR, D-dimer: ABG POC ABG pH 7.364 (7.35-7.45) 10/17/18 12:47 POC ABG pCO2 67.2 (35-45) H 10/17/18 12:47 POC ABG pO2 66 (80-105) L 10/17/18 12:47 POC ABG HCO3 38.3 (22-26 mml/L) 10/17/18 12:47 POC ABG Total CO2 40 (23-27mmol/L) 10/17/18 12:47 POC ABG O2 Sat 91 10/17/18 12:47 PT/INR, D-dimer PT 16.2 Sec. (12.2-14.9) H 10/16/18 06:20 INR 1.34 (0.87-1.13) H 10/16/18 06:20 Abnormal lab findings: Abnormal Labs 10/16/18 10/16/18 10/16/18 06:20 06:20 06:20 RDW 17.6 H Plt Count 123 L Seg Neutrophils % 74.5 H PT 16.2 H INR 1.34 H POC ABG pH POC ABG pCO2 POC ABG pO2 Potassium Carbon Dioxide 31 H BUN Creatinine Glucose 179 H POC Glucose Troponin T 0.071 H NT-Pro-B Natriuret Pep Triglycerides 178 H HDL Cholesterol 63 H 10/16/18 10/16/18 10/16/18 06:20 06:23 08:02 RDW Plt Count Seg Neutrophils % PT INR POC ABG pH 7.172 L 7.223 L POC ABG pCO2 POC ABG pO2 57 L Potassium Carbon Dioxide BUN Creatinine Glucose POC Glucose Troponin T NT-Pro-B Natriuret Pep 711.7 H Triglycerides HDL Cholesterol 10/16/18 10/16/18 10/16/18 09:18 12:09 14:45 RDW Plt Count Seg Neutrophils % PT INR POC ABG pH POC ABG pCO2 POC ABG pO2 Potassium Carbon Dioxide BUN Creatinine Glucose POC Glucose 235 H Troponin T 0.059 H 0.045 H D NT-Pro-B Natriuret Pep Triglycerides HDL Cholesterol 10/16/18 10/17/18 10/17/18 17:05 00:18 04:58 RDW 17.4 H Plt Count 125 L Seg Neutrophils % PT INR POC ABG pH POC ABG pCO2 POC ABG pO2 Potassium Carbon Dioxide BUN Creatinine Glucose POC Glucose 184 H 191 H Troponin T NT-Pro-B Natriuret Pep Triglycerides HDL Cholesterol 10/17/18 10/17/18 10/17/18 04:58 06:04 12:17 RDW Plt Count Seg Neutrophils % PT INR POC ABG pH POC ABG pCO2 POC ABG pO2 Potassium 5.3 H Carbon Dioxide BUN 19 H Creatinine Glucose 255 H POC Glucose 255 H 435 H Troponin T NT-Pro-B Natriuret Pep Triglycerides HDL Cholesterol 10/17/18 10/17/18 10/18/18 12:47 17:46 00:14 RDW Plt Count Seg Neutrophils % PT INR POC ABG pH POC ABG pCO2 67.2 H POC ABG pO2 66 L Potassium Carbon Dioxide BUN Creatinine Glucose POC Glucose 233 H 247 H Troponin T NT-Pro-B Natriuret Pep Triglycerides HDL Cholesterol 10/18/18 10/18/18 10/18/18 06:34 12:16 18:14 RDW Plt Count Seg Neutrophils % PT INR POC ABG pH POC ABG pCO2 POC ABG pO2 Potassium Carbon Dioxide BUN Creatinine Glucose POC Glucose 264 H 324 H 358 H Troponin T NT-Pro-B Natriuret Pep Triglycerides HDL Cholesterol 07/02/19 07/02/19 07/02/19 00:20 05:02 06:22 RDW Plt Count Seg Neutrophils % PT INR POC ABG pH POC ABG pCO2 POC ABG pO2 Potassium Carbon Dioxide 36 H BUN 21 H Creatinine Glucose 177 H POC Glucose 278 H 222 H Troponin T NT-Pro-B Natriuret Pep Triglycerides HDL Cholesterol 10/19/18 10/19/18 10/19/18 12:08 17:49 18:10 RDW Plt Count Seg Neutrophils % PT INR POC ABG pH POC ABG pCO2 POC ABG pO2 Potassium Carbon Dioxide BUN Creatinine Glucose POC Glucose 198 H 330 H 112 H Troponin T NT-Pro-B Natriuret Pep Triglycerides HDL Cholesterol 10/19/18 10/20/18 10/20/18 23:53 05:15 05:15 RDW 17.4 H Plt Count 94 L Seg Neutrophils % PT INR POC ABG pH POC ABG pCO2 POC ABG pO2 Potassium Carbon Dioxide 36 H BUN 20 H Creatinine 0.6 L Glucose 153 H POC Glucose 344 H Troponin T NT-Pro-B Natriuret Pep Triglycerides HDL Cholesterol 10/20/18 10/20/18 10/20/18 06:02 12:25 17:59 RDW Plt Count Seg Neutrophils % PT INR POC ABG pH POC ABG pCO2 POC ABG pO2 Potassium Carbon Dioxide BUN Creatinine Glucose POC Glucose 145 H 192 H 251 H Troponin T NT-Pro-B Natriuret Pep Triglycerides HDL Cholesterol 10/20/18 10/21/18 23:42 06:17 RDW Plt Count Seg Neutrophils % PT INR POC ABG pH POC ABG pCO2 POC ABG pO2 Potassium Carbon Dioxide BUN Creatinine Glucose POC Glucose 308 H 181 H Troponin T NT-Pro-B Natriuret Pep Triglycerides HDL Cholesterol Chest x-ray: image reviewed Allied health notes reviewed: nursing
[2018-10-21] MEDS: HumaLOG SUB-Q SCH ×4 (09:00→18:24)
[2018-10-21] MEDS: ECOTRIN PO SCH (09:04)
[2018-10-21] MEDS: COREG PO SCH ×2 (09:05→22:11)
[2018-10-21] MEDS: PEPCID PO SCH (09:05)
[2018-10-21] MEDS: COZAAR PO SCH (09:05)
[2018-10-21] MEDS: ALDACTONE PO SCH (09:06)
[2018-10-21] MEDS: LASIX PO SCH (09:06)
[2018-10-21] MEDS: CLARITIN PO SCH (09:06)
[2018-10-21] MEDS: ATIVAN PO SCH (09:08)
[2018-10-21] MEDS: DELTASONE PO SCH (09:08)
[2018-10-21] MEDS: FLONASE NS SCH (09:09)
[2018-10-21] MEDS: WELLBUTRIN SR PO SCH (09:10)
[2018-10-21] MEDS: SODIUM CHLORIDE FLUSH SYRINGE 10 ML IV SCH ×2 (10:00→22:12)
--- NOTE | 2018-10-21 13:14 | Progress Note ---
Assessment and Plan Assessment and plan: Patient is a 48-year-old -[place] woman from [facility] with a history of morbid obesity, remote brain surgery, chronic systolic CHF, COPD, diabetes, sleep apnea presented to [facility] ED with shortness of breath and AMS. Pulse Ox was noted in the 50s. * PRIOR IMAGING ABDOMINAL US- MEDICAL RENAL DISEASE * CXR: Bibasilar opacities may be due to atelectasis, scarring or infection Acute on chronic respiratory failure with Hypercarbia and hypoxia due to COPD excaerbation and CHF exacerbation, Continue current care, Pulmonology Acute COPD exacerbation-Treated with steroids and nebs Acute exacerbation of Chronic systolic heart failure, elevated troponin- Cardiology consult appreciated - Recommend medical management, she was diuresis, now off lasix Diabetes mellitus type 2 with hyperglycemia- cont to adjust insulins and expect improvement as steroids is tapered Acute metabolic encephalopathy, poa HLD- Continue statin Hyperkalemia: Kayexlate given NSTEMI type 2; SECONDARY TO OXYGEN DEMAND, OUTPATIENT CARDIOLOGY EVAL Morbid obesity, bmi 51.6: EXTENSIVE COUNSELLING PROVIDED, Depression by h/o Dilated cardiomyopathy GERD (gastroesophageal reflux disease) Secondary Hypercoagable state Non compliance. Extensive counselling provided downgrade out of the ICU, anticipate discharge back to [facility] if O2 sat stable==>down to 3 liters, unable to go back to [place] today because no respiratory therapist to receive her. patient using bipap at night History Interval history: Patient was seen and examined. Follow-up on current diagnosis of Respiratory failure. No overnight events reported to me. Patient denies any chest pain, shortness breath, nausea/vomiting or severe headaches. Imaging, nursing note, chart, labs and old chart reviewed. Discussed with patient. Patient using curse words for pain medications and I kindly asked her to stop. She doesn't want Methadone, she wants morphine for chronic LBP and whole body pains. She is getting upset by the lack of pain control and her O2 sat started dropping to 85% , I initially increased her FiO2 to 10 liters and sats went back up to 92%, then I turned the 10 liters down and respiratory Therapist came. Hospitalist Physical - Physical exam Narrative exam: Gen: ill appearing, morbid obese bmi 51.6, NAD, Awake, Alert, Orientated HEENT: NCAT, EOMI, PERRL, OP Clear Neck: supple, no adenopathy, no thyromegaly, no JVD CVS/Heart: RRR, normal S1S2, pulses present bilaterally Chest/Lungs: CTA B, Symmetrical chest expansion, good air entry bilaterally GI/Abdomen: soft, NTND, good bowel sounds, no guarding or rebound /Bladder: no suprapubic tenderness, no CVA or paraspinal tenderness Extermity/Skin: dependent edema MSK: FROM x 4 Neuro: CN 2-12 grossly intact, no new focal deficits Psych: calm - Constitutional Vitals: Temp Pulse Resp BP Pulse Ox 99.0 F 111 H 16 153/92 90 10/21/18 08:19 10/21/18 09:06 10/21/18 08:19 10/21/18 08:19 10/21/18 08:19 General appearance: Present: obese. Absent: severe distress Results - Labs CBC & Chem 7: 10/20/18 05:15 10/20/18 05:15 Labs: Laboratory Last Values WBC 6.0 K/mm3 (4.5-11.0) 10/20/18 05:15 RBC 4.06 M/mm3 (3.65-5.03) 10/20/18 05:15 Hgb 12.0 gm/dl (10.1-14.3) 10/20/18 05:15 Hct 38.1 % (30.3-42.9) 10/20/18 05:15 MCV 94 fl (79-97) 10/20/18 05:15 MCH 30 pg (28-32) 10/20/18 05:15 MCHC 32 % (30-34) 10/20/18 05:15 RDW 17.4 % (13.2-15.2) H 10/20/18 05:15 Plt Count 94 K/mm3 (140-440) L 10/20/18 05:15 Lymph % (Auto) Revenue Enforcement Collection Agent 10/17/18 04:58 [place] % (Auto) Revenue Enforcement Collection Agent 10/17/18 04:58 Eos % (Auto) Revenue Enforcement Collection Agent 10/17/18 04:58 Baso % (Auto) Revenue Enforcement Collection Agent 10/17/18 04:58 Lymph # Revenue Enforcement Collection Agent 10/17/18 04:58 [place] # Revenue Enforcement Collection Agent 10/17/18 04:58 Eos # Revenue Enforcement Collection Agent 10/17/18 04:58 Baso # Revenue Enforcement Collection Agent 10/17/18 04:58 Seg Neutrophils % Revenue Enforcement Collection Agent 10/17/18 04:58 Seg Neutrophils # Revenue Enforcement Collection Agent 10/17/18 04:58 PT 16.2 Sec. (12.2-14.9) H 10/16/18 06:20 INR 1.34 (0.87-1.13) H 10/16/18 06:20 APTT 25.2 Sec. (24.2-36.6) 10/16/18 06:20 POC ABG pH 7.364 (7.35-7.45) 10/17/18 12:47 POC ABG pCO2 67.2 (35-45) H 10/17/18 12:47 POC ABG pO2 66 (80-105) L 10/17/18 12:47 POC ABG HCO3 38.3 (22-26 mml/L) 10/17/18 12:47 POC ABG Total CO2 40 (23-27mmol/L) 10/17/18 12:47 POC ABG O2 Sat 91 10/17/18 12:47 POC ABG Base Excess 13 ((-2) - (+3)mmol/L) 10/17/18 12:47 45 % 10/17/18 12:47 Sodium 144 mmol/L (137-145) 10/20/18 05:15 Potassium 4.0 mmol/L (3.6-5.0) 10/20/18 05:15 Chloride 101.0 mmol/L (98-107) 10/20/18 05:15 Carbon Dioxide 36 mmol/L (22-30) H 10/20/18 05:15 11 mmol/L 10/20/18 05:15 BUN 20 mg/dL (7-17) H 10/20/18 05:15 0.6 mg/dL (0.7-1.2) L 10/20/18 05:15 Estimated GFR > 60 ml/min 10/20/18 05:15 33 % 10/20/18 05:15 Glucose 153 mg/dL (65-100) H 10/20/18 05:15 POC Glucose 136 (70-105) H 10/21/18 12:06 Calcium 8.8 mg/dL (8.4-10.2) 10/20/18 05:15 0.045 ng/mL (0.00-0.029) H D 10/16/18 14:45 NT-Pro-B Natriuret Pep 711.7 pg/mL (0-450) H 10/16/18 06:20 Triglycerides 178 mg/dL (2-149) H 10/16/18 06:20 Cholesterol 145 mg/dL (50-199) 10/16/18 06:20 66 mg/dL (50-130) 10/16/18 06:20 63 mg/dL (40-59) H 10/16/18 06:20 2.30 % 10/16/18 06:20 Active Medications - Current Medications Current Medications: Generic Name Dose Route Start Last Admin Trade Name Freq PRN Reason Stop Dose Admin Acetaminophen 650 mg 10/16/18 18:07 10/18/18 14:53 Tylenol PO 650 mg Q6H PRN Administration Pain, Mild (1-3) Acetaminophen/Hydrocodone Bitart 1 each 10/19/18 14:30 10/21/18 09:07 [place] 10/325 PO 1 each Q4H PRN Administration Pain , Severe (7-10) Albuterol 2.5 mg 10/16/18 08:21 Proventil IH Q3HRT PRN Shortness Of Breath Albuterol/Ipratropium 1 ampul 10/16/18 14:00 10/21/18 07:31 Duoneb *Not For Prn Use* IH 1 ampul Q6HRT JOE Administration Aspirin 325 mg 10/16/18 10:00 10/21/18 09:04 Ecotrin PO 325 mg DAILY JOE Administration Atorvastatin Calcium 40 mg 10/16/18 22:00 10/20/18 22:34 Lipitor PO 40 mg QHS JOE Administration Budesonide 0.5 mg 10/16/18 20:00 10/21/18 07:31 Pulmicort IH 0.5 mg Q12HRT JOE Administration Bupropion HCl 100 mg 10/16/18 10:00 10/21/18 09:10 Wellbutrin Sr PO 100 mg DAILY JOE Administration Carbamazepine 200 mg 10/16/18 10:00 10/21/18 09:04 Tegretol PO 200 mg DAILY JOE Administration Carvedilol 6.25 mg 10/16/18 10:00 10/21/18 09:05 Coreg PO 6.25 mg BID JOE Administration Dextrose 50 ml 10/16/18 08:29 D50w (25gm) Syringe IV PRN PRN Hypoglycemia Famotidine 20 mg 10/16/18 10:00 10/21/18 09:05 Pepcid PO 20 mg DAILY JOE Administration Fluticasone Propionate 50 mcg 10/16/18 10:00 10/21/18 09:09 Flonase NS 50 mcg DAILY JOE Administration Furosemide 20 mg 10/18/18 15:00 10/20/18 17:32 Lasix IV 20 mg ONCE OJE Administration Furosemide 20 mg 10/19/18 10:00 10/21/18 09:06 Lasix PO 20 mg QDAY JOE Administration Hydralazine HCl 37.5 mg 10/16/18 09:00 10/21/18 02:11 Apresoline PO 37.5 mg Q8H JOE Administration Insulin Glargine 16 units 10/18/18 17:03 10/20/18 23:22 Lantus SUB-Q 16 units QHS JOE Administration Insulin Human Lispro 0 unit 10/16/18 12:00 10/21/18 09:00 Humalog SUB-Q 2 unit Q6HR JOE Administration Protocol Isosorbide Dinitrate 20 mg 10/16/18 09:00 10/21/18 02:12 Isordil Titradose PO 20 mg Q8H JOE Administration Loratadine 10 mg 10/16/18 10:00 10/21/18 09:06 Claritin PO 10 mg DAILY JOE Administration Lorazepam 0.5 mg 10/16/18 10:00 10/21/18 09:08 Ativan PO 0.5 mg DAILY JOE Administration Losartan Potassium 50 mg 10/16/18 10:00 10/21/18 09:05 Cozaar PO 50 mg QDAY JOE Administration Montelukast Sodium 10 mg 10/16/18 22:00 10/20/18 22:33 Singulair PO 10 mg QHS JOE Administration Morphine Sulfate 2 mg 10/19/18 14:30 10/20/18 22:33 Morphine IV 2 mg Q4H PRN Administration Pain , Severe (7-10) Polyethylene Glycol 17 gm 10/16/18 08:23 10/21/18 09:02 Miralax 3350 PO 17 gm QDAY PRN Administration Constipation Prednisone 40 mg 10/18/18 15:00 10/21/18 09:08 Deltasone PO 40 mg QDAY JOE Administration Quetiapine Fumarate 300 mg 10/16/18 10:00 10/20/18 22:33 Seroquel PO 300 mg BID JEO Administration Senna 17.2 mg 10/16/18 22:00 10/20/18 22:34 Senokot PO 17.2 mg HS JOE Administration Sodium Chloride 10 ml 10/16/18 10:00 10/20/18 22:37 Sodium Chloride Flush Syringe 10 Ml IV 10 ml BID JOE Administration Sodium Chloride 10 ml 10/16/18 08:21 Sodium Chloride Flush Syringe 10 Ml IV PRN PRN LINE FLUSH Sorbitol 30 ml 10/16/18 09:00 10/21/18 09:09 Sorbitol 70% PO 30 ml Q12H JOE Administration Spironolactone 25 mg 10/16/18 10:00 10/21/18 09:06 Aldactone PO 25 mg QDAY JOE Administration Trazodone HCl 50 mg 10/16/18 22:00 10/20/18 22:33 Desyrel PO 50 mg QHS JOE Administration Nutrition/Malnutrition Assess - Dietary Evaluation Nutrition/Malnutrition Findings: Nutrition Notes Start: 10/16/18 11:01 Freq: Status: Active Protocol: Document 10/19/18 08:57 LP (Rec: 10/19/18 09:03 LP [id number]) Nutrition Notes Initial or Follow up Reassessment Current Diagnosis COPD,Diabetes,Heart Failure Current Diet Cardiac/Consistent CHO Labs/Tests Reviewed Pertinent Medications Reviewed Height 5 ft 6 in Weight 145.15 kg [place] Body Weight (kg) 59.09 BMI 51.6 Subjective/Other Information Pt eating 100% of meals and requesting foods that she is unable to have. Burn Absent Trauma Absent #1 Nutrition Diagnosis Predicted suboptimal energy intake As Evidenced by Signs and Symptoms Pt consuming 100% Diagnosis Progress(for reassessment Resolved documentation) Is patient on ventilator? No Is Patient Ambulatory and/or Out of Bed No REE-([facility]-confined to bed) 2520.768 Kcal/Kg value to use for calculation 12 Approximate Energy Requirements Using 1742 kcal/Kg Calculation Used for Recommendations Kcal/kg Additional Notes Pro needs 0.8-1g/kg adjBW: 82- 102g/day Fluid needs per MD Nutrition Intervention Change Diet Order: Cardiac/consistent CHO Goal #1 PO tolerance Goal #2 PO intake to meet at least 75% energy and pro needs Anticipated Discharge Needs: Cardiac/consistent CHO Revisit per MD consult or patient Sign Off request:
[2018-10-21] MEDS: MORPHINE IV PRN (14:40)
[2018-10-21] MEDS: CEPACOL X STRENGTH MM PRN ×2 (19:05→22:13)
[2018-10-21] MEDS: DESYREL PO SCH (22:11)
[2018-10-21] MEDS: SENOKOT PO SCH (22:12)
[2018-10-21] MEDS: SINGULAIR PO SCH (22:12)
[2018-10-21] MEDS: LANTUS SUB-Q SCH (22:14)
[2018-10-22] MEDS: MORPHINE IV PRN ×2 (00:40→11:28)
[2018-10-22] MEDS: CEPACOL X STRENGTH MM PRN ×4 (00:41→13:34)
[2018-10-22] MEDS: HumaLOG SUB-Q SCH ×3 (01:00→12:38)
[2018-10-22] MEDS: DUONEB *Not for PRN Use IH SCH ×3 (03:27→14:12)
[2018-10-22] MEDS: APRESOLINE PO SCH ×3 (06:18→16:51)
[2018-10-22] MEDS: NORCO 10/325 PO PRN (06:19)
[2018-10-22] MEDS: ISORDIL TITRADOSE PO SCH ×3 (06:19→16:50)
[2018-10-22] MEDS: PULMICORT IH SCH (07:50)
[2018-10-22] MEDS: SORBITOL 70% PO SCH (08:46)
[2018-10-22] MEDS: ECOTRIN PO SCH (10:05)
[2018-10-22] MEDS: COZAAR PO SCH (10:05)
[2018-10-22] MEDS: CLARITIN PO SCH (10:05)
[2018-10-22] MEDS: LASIX PO SCH (10:06)
[2018-10-22] MEDS: PEPCID PO SCH (10:06)
[2018-10-22] MEDS: ATIVAN PO SCH (10:06)
[2018-10-22] MEDS: DELTASONE PO SCH (10:06)
[2018-10-22] MEDS: FLONASE NS SCH (10:07)
[2018-10-22] MEDS: COREG PO SCH (10:07)
[2018-10-22] MEDS: WELLBUTRIN SR PO SCH (10:08)
[2018-10-22] MEDS: SODIUM CHLORIDE FLUSH SYRINGE 10 ML IV SCH (10:08)
[2018-10-22] MEDS: ALDACTONE PO SCH (10:10)
--- NOTE | 2018-10-22 12:29 | Progress Note ---
Assessment and Plan Acute on chronic hypoxemic hypercapnic respiratory failure. Acute COPD exacerbation Acute on chronic systolic CHF exacerbation, non-ischemic NSTEMI Psychizoaffective disorder Elevated D-dimer. Obstructive sleep apnea. History of hypertension. History of bipolar disorder. Tobacco use disorder Thrombocytopenia - NIPPV QHS -Oxygen restrictive strategies -Keep oxygen saturations at 88-90% -Bronchodilators -Aspiration precautions -Steroid, start taper -Accucheck with glycemic control while on steroids -Continue chronic home medications - VTE and stress ulcer prophylaxis - Gentle diuresis while monitoring renal function, hemodynamics and electrolyte profile -SSI for glycemic control with target blood glucose <180mg/dL -Cardio-protective measures -Maintenance of sleep-wake cycle, avoid further delirium - Mobility program for pressure ulcer prophylaxis -PT/OT - Smoking cessation counselling -Avoid narcotic analgesia -Discharge planning CODE STATUS: FULL CONDITION: FAIR PROGNOSIS: FAIR Discussed care plan with RT/RN Subjective Date of service: 10/22/18 Principal diagnosis: Ac on ch hypoxemic hypercapnic resp failure; Acute COPD exacerbation; CHF Interval history: Patient is seen today for: Acute on chronic hypoxemic hypercapnic respiratory failure; Acute COPD exacerbation; Acute on chronic systolic CHF exacerbation Seen and examined at bedside; 24hour events reviewed; nursing and respiratory care staff consulted; no adverse overnight events reported to me; resting peacef ully is bed; feels better; weaned off HFNC; denies acute chest pains or palpitations; No N/V/F/C, feels much better, wants to go home Objective Vital Signs - 12hr 10/22/18 10/22/18 10/22/18 00:32 00:34 00:40 Temperature 97.7 F Pulse Rate 92 H Pulse Rate [ Anterior Bilateral Throughout] Pulse Rate [ Apical] Pulse Rate [ Bilateral] Pulse Rate [ Left Radial] Pulse Rate [ Right Radial] Respiratory 20 22 Rate Respiratory Rate [Anterior Bilateral Throughout] Respiratory Rate [Bilateral ] Blood Pressure 107/89 O2 Sat by Pulse 89 Oximetry 10/22/18 10/22/18 10/22/18 03:30 03:32 03:41 Temperature Pulse Rate 95 H Pulse Rate [ Anterior Bilateral Throughout] Pulse Rate [ Apical] Pulse Rate [ 94 H 97 H Bilateral] Pulse Rate [ Left Radial] Pulse Rate [ Right Radial] Respiratory 22 Rate Respiratory Rate [Anterior Bilateral Throughout] Respiratory 18 20 Rate [Bilateral ] Blood Pressure O2 Sat by Pulse 97 Oximetry 10/22/18 10/22/18 10/22/18 04:48 04:49 06:18 Temperature 97.8 F Pulse Rate 84 84 Pulse Rate [ Anterior Bilateral Throughout] Pulse Rate [ Apical] Pulse Rate [ Bilateral] Pulse Rate [ Left Radial] Pulse Rate [ Right Radial] Respiratory 20 Rate Respiratory Rate [Anterior Bilateral Throughout] Respiratory Rate [Bilateral ] Blood Pressure 144/86 144/86 O2 Sat by Pulse 98 Oximetry 10/22/18 10/22/18 10/22/18 06:19 07:50 08:00 Temperature Pulse Rate 84 Pulse Rate [ 91 H 92 H Anterior Bilateral Throughout] Pulse Rate [ Apical] Pulse Rate [ Bilateral] Pulse Rate [ Left Radial] Pulse Rate [ Right Radial] Respiratory 22 Rate Respiratory 20 20 Rate [Anterior Bilateral Throughout] Respiratory Rate [Bilateral ] Blood Pressure 144/86 O2 Sat by Pulse 95 Oximetry 10/22/18 10/22/18 10/22/18 08:11 08:44 08:45 Temperature 98.6 F Pulse Rate 87 77 77 Pulse Rate [ Anterior Bilateral Throughout] Pulse Rate [ Apical] Pulse Rate [ Bilateral] Pulse Rate [ Left Radial] Pulse Rate [ Right Radial] Respiratory 20 Rate Respiratory Rate [Anterior Bilateral Throughout] Respiratory Rate [Bilateral ] Blood Pressure 113/62 150/90 150/90 O2 Sat by Pulse 91 Oximetry 10/22/18 10/22/18 10/22/18 10:00 10:04 10:05 Temperature Pulse Rate 87 114 H 104 H Pulse Rate [ Anterior Bilateral Throughout] Pulse Rate [ 77 Apical] Pulse Rate [ Bilateral] Pulse Rate [ 77 Left Radial] Pulse Rate [ 77 Right Radial] Respiratory 21 Rate Respiratory Rate [Anterior Bilateral Throughout] Respiratory Rate [Bilateral ] Blood Pressure 131/79 131/79 O2 Sat by Pulse 92 79 L Oximetry 10/22/18 10/22/18 10/22/18 10:07 10:10 12:01 Temperature 98.5 F Pulse Rate 104 H 104 H 106 H Pulse Rate [ Anterior Bilateral Throughout] Pulse Rate [ Apical] Pulse Rate [ Bilateral] Pulse Rate [ Left Radial] Pulse Rate [ Right Radial] Respiratory 20 Rate Respiratory Rate [Anterior Bilateral Throughout] Respiratory Rate [Bilateral ] Blood Pressure 131/79 131/79 122/80 O2 Sat by Pulse 85 Oximetry Constitutional: no acute distress, other Eyes: non-icteric ENT: oropharynx moist, other (mallampati 4) Neck: supple, no lymphadenopathy, no JVD, other (large neck circumference) Effort: normal Ascultation: Bilateral: diminished breath sounds, rhonchi Percussion: Bilateral: not dull Cardiovascular: regular rate and rhythm Gastrointestinal: normoactive bowel sounds, soft, non-tender, non-distended Integumentary: rash (stasis dermatitis rash) Extremities: no cyanosis, pulses normal, no ischemia or petechiae, edema Neurologic: normal mental status, non-focal exam, pupils equal and round, CN II- XII normal, motor strength normal and Psychiatric: mood appropriate, affect normal CBC and BMP: 10/20/18 05:15 10/20/18 05:15 ABG, PT/INR, D-dimer: ABG POC ABG pH 7.364 (7.35-7.45) 10/17/18 12:47 POC ABG pCO2 67.2 (35-45) H 10/17/18 12:47 POC ABG pO2 66 (80-105) L 10/17/18 12:47 POC ABG HCO3 38.3 (22-26 mml/L) 10/17/18 12:47 POC ABG Total CO2 40 (23-27mmol/L) 10/17/18 12:47 POC ABG O2 Sat 91 10/17/18 12:47 PT/INR, D-dimer PT 16.2 Sec. (12.2-14.9) H 10/16/18 06:20 INR 1.34 (0.87-1.13) H 10/16/18 06:20 Abnormal lab findings: Abnormal Labs 10/16/18 10/16/18 10/16/18 06:20 06:20 06:20 RDW 17.6 H Plt Count 123 L Seg Neutrophils % 74.5 H PT 16.2 H INR 1.34 H POC ABG pH POC ABG pCO2 POC ABG pO2 Potassium Carbon Dioxide 31 H BUN Creatinine Glucose 179 H POC Glucose Troponin T 0.071 H NT-Pro-B Natriuret Pep Triglycerides 178 H HDL Cholesterol 63 H 10/16/18 10/16/18 10/16/18 06:20 06:23 08:02 RDW Plt Count Seg Neutrophils % PT INR POC ABG pH 7.172 L 7.223 L POC ABG pCO2 POC ABG pO2 57 L Potassium Carbon Dioxide BUN Creatinine Glucose POC Glucose Troponin T NT-Pro-B Natriuret Pep 711.7 H Triglycerides HDL Cholesterol 10/16/18 10/16/18 10/16/18 09:18 12:09 14:45 RDW Plt Count Seg Neutrophils % PT INR POC ABG pH POC ABG pCO2 POC ABG pO2 Potassium Carbon Dioxide BUN Creatinine Glucose POC Glucose 235 H Troponin T 0.059 H 0.045 H D NT-Pro-B Natriuret Pep Triglycerides HDL Cholesterol 10/16/18 10/17/18 10/17/18 17:05 00:18 04:58 RDW 17.4 H Plt Count 125 L Seg Neutrophils % PT INR POC ABG pH POC ABG pCO2 POC ABG pO2 Potassium Carbon Dioxide BUN Creatinine Glucose POC Glucose 184 H 191 H Troponin T NT-Pro-B Natriuret Pep Triglycerides HDL Cholesterol 10/17/18 10/17/18 10/17/18 04:58 06:04 12:17 RDW Plt Count Seg Neutrophils % PT INR POC ABG pH POC ABG pCO2 POC ABG pO2 Potassium 5.3 H Carbon Dioxide BUN 19 H Creatinine Glucose 255 H POC Glucose 255 H 435 H Troponin T NT-Pro-B Natriuret Pep Triglycerides HDL Cholesterol 10/17/18 10/17/18 10/18/18 12:47 17:46 00:14 RDW Plt Count Seg Neutrophils % PT INR POC ABG pH POC ABG pCO2 67.2 H POC ABG pO2 66 L Potassium Carbon Dioxide BUN Creatinine Glucose POC Glucose 233 H 247 H Troponin T NT-Pro-B Natriuret Pep Triglycerides HDL Cholesterol 10/18/18 10/18/18 10/18/18 06:34 12:16 18:14 RDW Plt Count Seg Neutrophils % PT INR POC ABG pH POC ABG pCO2 POC ABG pO2 Potassium Carbon Dioxide BUN Creatinine Glucose POC Glucose 264 H 324 H 358 H Troponin T NT-Pro-B Natriuret Pep Triglycerides HDL Cholesterol 10/19/18 10/19/18 10/19/18 00:20 05:02 06:22 RDW Plt Count Seg Neutrophils % PT INR POC ABG pH POC ABG pCO2 POC ABG pO2 Potassium Carbon Dioxide 36 H BUN 21 H Creatinine Glucose 177 H POC Glucose 278 H 222 H Troponin T NT-Pro-B Natriuret Pep Triglycerides HDL Cholesterol 10/19/18 10/19/18 10/19/18 12:08 17:49 18:10 RDW Plt Count Seg Neutrophils % PT INR POC ABG pH POC ABG pCO2 POC ABG pO2 Potassium Carbon Dioxide BUN Creatinine Glucose POC Glucose 198 H 330 H 112 H Troponin T NT-Pro-B Natriuret Pep Triglycerides HDL Cholesterol 10/19/18 10/20/18 10/20/18 23:53 05:15 05:15 RDW 17.4 H Plt Count 94 L Seg Neutrophils % PT INR POC ABG pH POC ABG pCO2 POC ABG pO2 Potassium Carbon Dioxide 36 H BUN 20 H Creatinine 0.6 L Glucose 153 H POC Glucose 344 H Troponin T NT-Pro-B Natriuret Pep Triglycerides HDL Cholesterol 10/20/18 10/20/18 10/20/18 06:02 12:25 17:59 RDW Plt Count Seg Neutrophils % PT INR POC ABG pH POC ABG pCO2 POC ABG pO2 Potassium Carbon Dioxide BUN Creatinine Glucose POC Glucose 145 H 192 H 251 H Troponin T NT-Pro-B Natriuret Pep Triglycerides HDL Cholesterol 10/20/18 10/21/18 10/21/18 23:42 06:17 12:06 RDW Plt Count Seg Neutrophils % PT INR POC ABG pH POC ABG pCO2 POC ABG pO2 Potassium Carbon Dioxide BUN Creatinine Glucose POC Glucose 308 H 181 H 136 H Troponin T NT-Pro-B Natriuret Pep Triglycerides HDL Cholesterol 10/21/18 10/21/18 10/22/18 18:02 21:44 06:34 RDW Plt Count Seg Neutrophils % PT INR POC ABG pH POC ABG pCO2 POC ABG pO2 Potassium Carbon Dioxide BUN Creatinine Glucose POC Glucose 256 H 241 H 163 H Troponin T NT-Pro-B Natriuret Pep Triglycerides HDL Cholesterol 10/22/18 12:04 RDW Plt Count Seg Neutrophils % PT INR POC ABG pH POC ABG pCO2 POC ABG pO2 Potassium Carbon Dioxide BUN Creatinine Glucose POC Glucose 161 H Troponin T NT-Pro-B Natriuret Pep Triglycerides HDL Cholesterol Allied health notes reviewed: nursing
--- NOTE | 2018-10-22 13:02 | Discharge Summary ---
Providers - Providers Date of Admission: 10/16/18 07:39 Date of discharge: 10/22/18 Attending physician: DAYA MCBRIDE 10/16/18 07:40 Consult to Physician [CONS] Urgent Comment: Consulting Provider: MILEY GALLEGOS Physician Instructions: Reason For Exam: hypercapnic respiratory failure 10/16/18 08:22 Consult to Dietitian/Nutrition [CONS] Routine Physician Instructions: Reason For Exam: Reason for Consult: Poor oral intake [facility] Hospital course: Patient is a 48-year-old -[place] woman from [facility] with a history of morbid obesity, remote brain surgery, chronic systolic CHF, (est. EF 40-45% on 2D ECHO at [facility] 04/2018), chronic hypoxic respiratory failure due to end-stage COPD, diabetes, SHANIQUE with bipap at night who presented to [facility] ED with shortness of breath and AMS. Pulse Ox was noted in the 50s. * PRIOR IMAGING ABDOMINAL US- MEDICAL RENAL DISEASE * CXR: Bibasilar opacities may be due to atelectasis, scarring or infection Discharge Diagnoses: Acute on chronic respiratory failure with Hypercarbia and hypoxia due to COPD excaerbation and CHF exacerbation, Continue current care, Pulmonology Acute COPD exacerbation-Treated with steroids and nebs Acute exacerbation of Chronic systolic heart failure, elevated troponin- Cardiology consult appreciated - Recommend medical management, she was diuresis, now off lasix Diabetes mellitus type 2 with hyperglycemia- cont to adjust insulins and expect improvement as steroids is tapered Acute metabolic encephalopathy, poa HLD- Continue statin Hyperkalemia: Kayexlate given NSTEMI type 2; SECONDARY TO OXYGEN DEMAND, OUTPATIENT CARDIOLOGY EVAL Morbid obesity, bmi 51.6: EXTENSIVE COUNSELLING PROVIDED, Depression by h/o Dilated cardiomyopathy GERD (gastroesophageal reflux disease) Secondary Hypercoagable state Non compliance. Extensive counselling provided Discharge back to [facility] if O2 sat stable==>down to 3-3.5 Liters Patient has been coming to hospital every month since July 2018. I did discuss Hospice with patient but she is not receptive at this time. Disposition: [id number]/[place]-[id number] SNF [facility] Time spent for discharge: 36 minutes Core Measure Documentation - Palliative Care Palliative Care/ Comfort Measures: Not Applicable - Core Measures Any of the following diagnoses?: heart failure - VTE Discharge Requirements Deep Vein Thrombosis/Pulmonary Embolism Present on Admission: No Has pt received <5 days of overlap therapy or INR<2.0: No Anticoagulant overlap therapy prescribed at discharge: No Contraindication No Overlap Therapy order at DC: Not Indicated - Heart Failure Discharge Requirements IVONE/ARB for LVSD if EF <40%: Yes Beta pedro at discharge: Yes Exam - Physical Exam Narrative exam: Gen: ill appearing, morbid obese bmi 51.6, NAD, Awake, Alert, Orientated HEENT: NCAT, EOMI, PERRL, OP Clear Neck: supple, no adenopathy, no thyromegaly, no JVD CVS/Heart: RRR, normal S1S2, pulses present bilaterally Chest/Lungs: CTA B, Symmetrical chest expansion, good air entry bilaterally GI/Abdomen: soft, NTND, good bowel sounds, no guarding or rebound /Bladder: no suprapubic tenderness, no CVA or paraspinal tenderness Extermity/Skin: dependent edema MSK: FROM x 4 Neuro: CN 2-12 grossly intact, no new focal deficits Psych: calm - Constitutional Vitals: Temp Pulse Resp BP Pulse Ox 98.5 F 106 H 20 122/80 85 10/22/18 12:01 10/22/18 12:01 10/22/18 12:01 10/22/18 12:01 10/22/18 12:01 Plan Activity: up only with assistance, fall precautions, other (no strenous activity) Diet: low salt, diabetic Special Instructions: record daily BP diary, record blood sugar diary (three times a day with meals) Follow up with: NOMAN JESUS MD [Primary Care Provider] - 3-5 Days ELSA HAIRSTON MD [Staff Physician] - 7 Days Prescriptions: HYDROcodone/APAP 10-325 [Azalea 10-325 mg TAB] 1 each PO Q4H PRN #15 tablet PRN Reason: Pain , Severe (7-10) Budesonide [Pulmicort Respules] 0.5 mg IH Q12HRT #30 nebu
[2018-10-22 16:50] VITALS: BP 138/89
== END 2018-10-22 17:12 | DRG 280 ==
LOC: ED 05:40 → IMCU 07:39 → 4A 10-20 16:30
PROVIDERS: ADMIT Internal Medicine; ATTEND Internal Medicine
PROC: 4A033R1 Measurement of Arterial Saturation, Peripheral, Percutaneous Approach (ICD-10-PCS; principal; 2018-10-16)
PROC: 5A09457 Assistance with Respiratory Ventilation, 24-96 Consecutive Hours, Continuous Positive Airway Pressure (ICD-10-PCS; 2018-10-16)
PROC: 5A09457 Assistance with Respiratory Ventilation, 24-96 Consecutive Hours, Continuous Positive Airway Pressure (ICD-10-PCS; 2018-10-20)
DX: I21.A1 Myocardial infarction type 2 (principal); J96.22 Acute and chronic respiratory failure with hypercapnia; I50.23 Acute on chronic systolic (congestive) heart failure; G93.41 Metabolic encephalopathy; J96.21 Acute and chronic respiratory failure with hypoxia; J44.1 Chronic obstructive pulmonary disease with (acute) exacerbation; Z68.42 Body mass index [BMI] 45.0-49.9, adult; I42.0 Dilated cardiomyopathy; D68.69 Other thrombophilia; E66.01 Morbid (severe) obesity due to excess calories; I11.0 Hypertensive heart disease with heart failure; E11.65 Type 2 diabetes mellitus with hyperglycemia; G47.33 Obstructive sleep apnea (adult) (pediatric); E78.5 Hyperlipidemia, unspecified; E87.5 Hyperkalemia; F32.9 Major depressive disorder, single episode, unspecified; K21.9 Gastro-esophageal reflux disease without esophagitis; M19.90 Unspecified osteoarthritis, unspecified site; F03.90 Unspecified dementia, unspecified severity, without behavioral disturbance, psychotic disturbance, mood disturbance, and anxiety; I25.10 Atherosclerotic heart disease of native coronary artery without angina pectoris; D69.6 Thrombocytopenia, unspecified; F17.200 Nicotine dependence, unspecified, uncomplicated; Z71.3 Dietary counseling and surveillance; Z88.0 Allergy status to penicillin; Z88.2 Allergy status to sulfonamides; Z86.711 Personal history of pulmonary embolism; Z90.711 Acquired absence of uterus with remaining cervical stump; Z71.6 Tobacco abuse counseling
CPT/HCPCS: 36415; 36600; 71045; 80048; 80061; 82803; 82962; 83880; 84484; 85025; 85027; 85610; 85730; 93005; 93010; 94640; 94660; 94760; G0378; A9270-GY; J1815; J1940; J2270; J2930; J3475; J7050; J7512

== ENCOUNTER 2018-12-14 05:37 | Inpatient (IN) | payer MEDICARE ==
[2018-12-14] MEDS ORDERED: NARCAN 2 MG/2 ML IV ONE (05:50)
[2018-12-14] MEDS ORDERED: NACL 0.9% 1000 ML 1,000 ML IV ONE (06:00)
[2018-12-14] MEDS ORDERED: NACL 0.9% 1000 ML 1,000 ML ONE (06:04)
[2018-12-14 06:19] LABS: Hematocrit 45.4 % (30.3-42.9); Hemoglobin 14.1 gm/dl (10.1-14.3); Mean Corpuscular HGB Conc 31 % (30-34); Mean Corpuscular Volume 101 fl (79-97); Platelet Count 173 K/mm3 (140-440); Red Cell Distribution Width 17.5 % (13.2-15.2)
[2018-12-14 06:37] LABS: Albumin 3.5 g/dL (3.9-5); Calcium 8.7 mg/dL (8.4-10.2)
[2018-12-14] MEDS ORDERED: HumuLIN R IV ONE (06:40)
--- NOTE | 2018-12-14 06:49 | XRay Report ---
CHEST 1 VIEW INDICATION: Altered mental status. COMPARISON: 10/16/2018. FINDINGS: Support devices: None. Heart: Stable cardiomegaly. Lungs/Pleura: Left basilar effusion and mild bibasilar parenchymal change. Additional findings: None. IMPRESSION: 1. Left basilar effusion. 2. Mild bibasilar parenchymal change. A combination of atelectasis and pneumonia is suspected. Signer Name: Tony Ortega MD Signed: 12/14/2018 6:44 AM Workstation Name: [id number]
[2018-12-14] MEDS ORDERED: LEVAQUIN 750MG/150ML 750 MG/150 ML BAG IV ONE (06:55)
[2018-12-14 06:56] LABS: Chol/HDL Ratio 2.06 %
[2018-12-14 07:13] LABS: INR 1.06 (0.87-1.13)
--- NOTE | 2018-12-14 07:13 | Emergency Department Report ---
HPI - General Chief Complaint: Overdose Time Seen by Provider: 12/14/18 06:08 - HPI HPI: 48-year-old -Ivor[place] female presents to the emergency department by EMS from her [facility] after she was found unresponsive at about 5:30 AM this morning. Per EMS, the staff at [facility] had said that the patient had been complaining of shortness of breath and body pains throughout most of yesterday. They were treating this with Tylenol. Apparently a staff member saw the patient taking some Tylenol or some other medication at around 4:30 AM. She has a past medical history of ueq-qfgienm-tradgdamg diabetes, morbid obesity, obstructive sleep apnea, chronic respiratory failure with hypoxia, hyperlipidemia, CHF, schizophrenia and bipolar disorder. The patient was found to have a pulse ox in the 80s with EMS arrival and improved with a nonrebreather. The patient is currently a poor historian secondary to her current medical condition. ED Past Medical Hx - Past Medical History Hx Hypertension: Yes Hx Heart Attack/AMI: Yes Hx Congestive Heart Failure: Yes Hx Diabetes: Yes Hx Deep Vein Thrombosis: No Hx Pulmonary Embolism: Yes Hx Liver Disease: No Hx Arthritis: Yes Hx Psychiatric Treatment: Yes (hx of schizophrenia, major depressive disorder) Hx Asthma: Yes Hx COPD: Yes Hx Dementia: Yes Hx HIV: No Additional medical history: Dysphasia. obstructive sleep apnea - Surgical History Hx Pacemaker: No Hx Internal Defibrillator: No Additional Surgical History: Partial hysterectomy. Tracheostomy - Social History Smoking Status: Unknown if ever smoked - Medications Home Medications: Home Medications Medication Instructions Recorded Confirmed Last Taken Type ALBUTEROL NEB's [Proventil 0.083% 2.5 mg IH Q3HRT PRN #15 nebu 10/22/18 12/14/18 12/13/18 Rx NEBS] Acetaminophen [Acetaminophen TAB] 325 mg PO Q6H PRN #15 tablet 10/22/18 12/14/18 12/13/18 Rx Aspirin EC 325 mg PO DAILY #30 10/22/18 12/14/18 12/13/18 Rx AtorvaSTATin [Lipitor] 40 mg PO QHS #30 tablet 10/22/18 12/14/18 12/13/18 Rx Benzocaine/Mentho [Cepacol X 1 each MM Q2HR PRN #15 packet 10/22/18 12/14/18 11/22/18 Rx Strength] Budesonide [Pulmicort Respules] 0.5 mg IH Q12HRT #30 nebu 10/22/18 12/14/18 12/13/18 Rx Carvedilol [Coreg] 6.25 mg PO BID #60 tablet 10/22/18 12/14/18 12/13/18 Rx Famotidine [Pepcid] 20 mg PO DAILY #15 tablet 10/22/18 12/14/18 12/05/18 Rx Fluticasone [Flonase] 1 spray NS BID #1 10/22/18 12/14/18 12/05/18 Rx Furosemide [Lasix TAB] 20 mg PO QDAY #30 tablet 10/22/18 12/14/18 12/13/18 Rx HYDROcodone/APAP 10-325 [[place] 1 each PO Q4H PRN #15 tablet 10/22/18 12/14/18 12/13/18 Rx 10-325 mg TAB] Insulin Glargine [Lantus VIAL] 16 units SUB-Q QHS #30 units 10/22/18 12/14/18 12/13/18 Rx Ipratropium/Albuterol Sulfate 1 ampul IH Q6HRT #30 ampul.neb 10/22/18 12/14/18 12/13/18 Rx [DUONEB *Not for PRN Use*] Isosorbide Dinitrate [Isordil 20 mg PO Q8H #30 tablet 10/22/18 12/14/18 12/13/18 Rx Titradose] LORazepam [Ativan] 0.5 mg PO DAILY #15 10/22/18 12/14/18 12/13/18 Rx Lispro Insulin [HumaLOG] 1 dose SUB-Q Q6HR #100 units 10/22/18 12/14/18 12/13/18 Rx Loratadine [Claritin] 10 mg PO DAILY #30 tab 10/22/18 12/14/18 11/29/18 Rx Losartan [Cozaar] 50 mg PO QDAY #30 tablet 10/22/18 12/14/18 12/13/18 Rx Montelukast [Singulair] 10 mg PO QHS #30 tablet 10/22/18 12/14/18 12/13/18 Rx Polyethylene Glycol 3350 [Miralax 17 gm PO QDAY PRN #15 powd.pack 10/22/18 12/14/18 12/13/18 Rx 3350] QUEtiapine [SEROquel] 300 mg PO BID #60 tablet 10/22/18 12/14/18 12/13/18 Rx Sennosides Tab [Senokot] 17.2 mg PO HS #30 10/22/18 12/14/18 12/13/18 Rx Sorbitol 70% 30 ml PO Q12H #30 10/22/18 12/14/18 12/13/18 Rx Spironolactone [Aldactone] 25 mg PO QDAY #30 tablet 10/22/18 12/14/18 12/13/18 Rx buPROPion SR [Wellbutrin SR] 100 mg PO DAILY #30 10/22/18 12/14/18 12/13/18 Rx carBAMazepine [Carbamazepine] 200 mg PO DAILY #30 10/22/18 12/14/18 12/13/18 Rx hydrALAZINE [Apresoline TAB] 37.5 mg PO Q8H #30 tablet 10/22/18 12/14/18 12/13/18 Rx predniSONE [Deltasone] 40 mg PO QDAY tablet 10/22/18 12/14/18 12/13/18 Rx traZODone [Desyrel] 50 mg PO QHS #30 10/22/18 12/14/18 12/13/18 Rx ED Review of Systems ROS: Stated complaint: ROBERTO Other details as noted in HPI Comment: Unobtainable due to pts medical conditions Physical Exam - Physical Exam Vital Signs: Vital Signs 12/14/18 12/14/18 12/14/18 05:42 06:05 06:10 Temperature 97.9 F Pulse Rate 105 H 104 H 102 H Respiratory 16 20 29 H Rate Blood Pressure 75/42 97/58 Blood Pressure 112/84 [Left] O2 Sat by Pulse 97 88 90 Oximetry 12/14/18 12/14/18 12/14/18 06:15 06:25 06:31 Temperature Pulse Rate 104 H 104 H Respiratory 15 20 29 H Rate Blood Pressure 97/58 97/58 Blood Pressure [Left] O2 Sat by Pulse 98 90 91 Oximetry 12/14/18 12/14/18 12/14/18 06:35 06:40 06:45 Temperature Pulse Rate 104 H 103 H 100 H Respiratory 15 23 29 H Rate Blood Pressure 97/58 121/70 121/70 Blood Pressure [Left] O2 Sat by Pulse 96 95 94 Oximetry Physical Exam: GENERAL: Patient is a well-appearing. HENT: Normocephalic. Atraumatic. Patient has moist mucous membranes. EYES: Pupils equal reactive to light bilaterally. NECK: Supple. Trachea is midline. Tracheostomy scar noted. CHEST/LUNGS: Clear to auscultation. Patient taking short shallow breaths. HEART/CARDIOVASCULAR: Regular. There is mild tachycardia. There is no murmur. ABDOMEN: Abdomen is soft, nontender. Patient has normal bowel sounds. Morbidly obese habitus. SKIN: Skin is warm and dry. NEURO: She responds to painful stimuli. Otherwise not following commands. MUSCULOSKELETAL: There is no obvious deformity. There is no evidence of acute injury. ED Course Vital Signs 12/14/18 12/14/18 12/14/18 05:42 06:05 06:10 Temperature 97.9 F Pulse Rate 105 H 104 H 102 H Respiratory 16 20 29 H Rate Blood Pressure 75/42 97/58 Blood Pressure 112/84 [Left] O2 Sat by Pulse 97 88 90 Oximetry 12/14/18 12/14/18 12/14/18 06:15 06:25 06:31 Temperature Pulse Rate 104 H 104 H Respiratory 15 20 29 H Rate Blood Pressure 97/58 97/58 Blood Pressure [Left] O2 Sat by Pulse 98 90 91 Oximetry 12/14/18 12/14/18 12/14/18 06:35 06:40 06:45 Temperature Pulse Rate 104 H 103 H 100 H Respiratory 15 23 29 H Rate Blood Pressure 97/58 121/70 121/70 Blood Pressure [Left] O2 Sat by Pulse 96 95 94 Oximetry - ABG Interpretation Ph: 7.153 PCO2: 120 PO2: 122 Bicarbonate: 48 Interpretation: respiratory acidosis, metabolic alkalosis ED Medical Decision Making - Lab Data Result diagrams: 12/14/18 06:00 12/14/18 06:00 - EKG Data -: EKG Interpreted by [facility] EKG shows normal: sinus rhythm, axis (right axis deviation), intervals, QRS complexes (low voltage), ST-T waves Rate: normal - EKG Data When compared to previous EKG there are: no significant change Interpretation: unchanged when compared t (10/16/18) - Radiology Data Radiology results: report reviewed, image reviewed interpreted by me: Chest x-ray shows some cardiomegaly. Concern for basilar pneumonia. CT head/brain wo con INDICATION: AMS. TECHNIQUE: Routine CT head without contrast. Sagittal and coronal reformatted images were obtained. All CT scans at this location are performed using CT dose reduction for ALARA by means of automated exposure control. COMPARISON: CT scan of the brain from 05/19/2018 FINDINGS: This is a limited CT scan. Imaging sequences were repeated multiple times due to motion related artifacts. In the best series available, motion-related artifacts obscuring the details. BRAIN / INTRACRANIAL CONTENTS: No acute hemorrhage, mass effect, midline shift, hydrocephalus. As seen in the last CT scan, low density lesions are seen in both cerebral hemispheres involving the frontal gyri. This was seen in the last CT scan also. I am considering this to be focal areas of encephalomalacia. In addition, there is suggestion of wedge-shaped low density lesion in the left posterior parietal external border zone. This was not seen in the last CT scan. I am unable to determine the age of this external border zone ischemia. CRANIOCERVICAL JUNCTION: No significant abnormality. ORBITS: Bilateral symmetric exophthalmus seen. I do not see retrobulbar mass. This remains unchanged. SINUSES / MASTOIDS: No significant abnormality of the visualized paranasal sinuses or mastoid air cells. ADDITIONAL FINDINGS: None. IMPRESSION: Metallic CT scan due to motion related artifacts Chronic ischemic changes in the inferior frontal gyri bilaterally Since the last CT scan from 05/19/2018, left external parietal border zone is chemic areas seen; I am unable to determine the age - Medical Decision Making Patient presents unresponsive from her [facility] facility after complaining about some shortness of breath and body pains. There was questionable medication ingestion but she did not have any response to Narcan. Tylenol and aspirin levels negative. Patient is known to this facility for her issues with hypercapnia and hypoxemic respiratory failure. She was in the 80s on pulse ox when EMS found her but she has gone up to the mid 90s with a nonrebreather. Initial ABG was done that showed CO2 retention with a PCO2 of about 120. The patient was maintaining her airway and had a reasonable pulse ox with oxygen supplementation, and since the patient has started to make some more spontaneous movements and become more responsive, we have decided to attempt to blow off the CO2 with BiPAP. She has responded well to this in the past. The repeat ABG after about 1 hour shows the PCO2 has gone down to about 90 and is trending down. Chest x-ray showed some concern for basilar pneumonia. Blood culture sent and the patient was started on antibiotics. A CT scan of the head was done that does not show any obvious acute bleed, shift, mass or ischemia. Patient's labs also show some renal insufficiency/SHELLY, hyperammonemia and the patient has an elevated troponin. She also has hyperglycemia without signs of diabetic ketoacidosis. Patient was given some IV insulin. She will be given some lactulose. The patient be admitted to the hospital for further evaluation and treatment and was accepted for admission by the hospitalist, Dr. Martinez. - Differential Diagnosis COPD, VT, CVA, Pneumonia, CHF Critical Care Time: Yes Critical care time in (mins) excluding proc time.: 35 Critical care attestation.: If time is entered above; I have spent that time in minutes in the direct care of this critically ill patient, excluding procedure time. Critical care time was spent on this patient during her initial evaluation, multiple re- evaluations, ordering and interpretation of labs and imaging, multiple evaluations of the ABG and titration of BiPAP Critical Care Time: 35 minutes ED Disposition Clinical Impression: COPD exacerbation, Obesity hypoventilation syndrome, Hyperammonemia, Hyperglycemia, Acute kidney injury Hypercapnic respiratory failure Qualifiers: Chronicity: unspecified Qualified Code(s): J96.92 - Respiratory failure, unspecified with hypercapnia Disposition: OP ADMIT IP TO THIS HOSP Is pt being admited?: Yes Condition: Serious Time of Disposition: 16:50
[2018-12-14 07:14] LABS: Partial Thromboplastin Time 22.8 Sec. (24.2-36.6)
[2018-12-14 07:56] LABS: Basophils # (Auto) 0.1 K/mm3 (0.0-0.1); Monocytes # (Auto) 1.5 K/mm3 (0.0-0.8); Monocytes % (Auto) 9.6 % (0.0-7.3)
[2018-12-14 07:59] LABS: Band Neutrophils # (Manual) 0.2 K/mm3; Total Cells Counted 100
[2018-12-14 08:01] LABS: Basophils % (Manual) 0 % (0.0-1.8); Eosinophils % (Manual) 0 % (0.0-4.3)
[2018-12-14 08:05] LABS: Anisocytosis 1+; Macrocytosis 1+
[2018-12-14 08:06] LABS: Platelet Estimate Consistent w Auto; Tear Drop Cells Few
--- NOTE | 2018-12-14 13:07 | Cat Scan Report ---
CT head/brain wo con INDICATION: AMS. TECHNIQUE: Routine CT head without contrast. Sagittal and coronal reformatted images were obtained. A ll CT scans at this location are performed using CT dose reduction for ALARA by means of automated ex posure control. COMPARISON: CT scan of the brain from 05/19/2018 FINDINGS: This is a limited CT scan. Imaging sequences were repeated multiple times due to motion rel ated artifacts. In the best series available, motion-related artifacts obscuring the details. BRAIN / INTRACRANIAL CONTENTS: No acute hemorrhage, mass effect, midline shift, hydrocephalus. As see n in the last CT scan, low density lesions are seen in both cerebral hemispheres involving the fronta l gyri. This was seen in the last CT scan also. I am considering this to be focal areas of encephalom alacia. In addition, there is suggestion of wedge-shaped low density lesion in the left posterior par ietal external border zone. This was not seen in the last CT scan. I am unable to determine the age o f this external border zone ischemia. CRANIOCERVICAL JUNCTION: No significant abnormality. ORBITS: Bilateral symmetric exophthalmus seen. I do not see retrobulbar mass. This remains unchanged. SINUSES / MASTOIDS: No significant abnormality of the visualized paranasal sinuses or mastoid air leslie ls. ADDITIONAL FINDINGS: None. IMPRESSION: Metallic CT scan due to motion related artifacts Chronic ischemic changes in the inferior frontal gyri bilaterally Since the last CT scan from 05/19/2018, left external parietal border zone ischemic areas seen; I am u nable to determine the age Signer Name: Melony Canseco MD Signed: 12/14/2018 1:03 PM Workstation Name: [id number]
[2018-12-14 13:41] LABS: Bilirubin,Urine NEG (Negative); Blood,Urine NEG (Negative); Color,Urine Yellow (Yellow); Mucus,Urine FEW /HPF; Urobilinogen,Urine < 2.0 mg/dL (<2.0)
[2018-12-14 13:42] LABS: Protein,Urine >2000 mg dL mg/dL (Negative)
[2018-12-14 14:12] LABS: Amphetamine Screen,Urine PRESUMPTIVE NEGATIVE; Benzodiazepines Screen,Urine PRESUMPTIVE NEGATIVE; Cannabinoid Screen,Urine PRESUMPTIVE NEGATIVE; Cocaine Screen,Urine PRESUMPTIVE NEGATIVE; Methadone Screen,Urine PRESUMPTIVE NEGATIVE; Opiate Screen,Urine PRESUMPTIVE NEGATIVE
[2018-12-14] MEDS ORDERED: PROVENTIL IH PRN (16:54)
[2018-12-14] MEDS ORDERED: MIRALAX 3350 PO PRN (17:00)
[2018-12-14] MEDS: NORCO 10/325 PO PRN (17:31)
[2018-12-14] MEDS ORDERED: PEPCID ONE (18:46)
[2018-12-14] MEDS ORDERED: SOLU-Medrol ONE ×2 (18:46→23:39)
[2018-12-14] MEDS ORDERED: APRESOLINE ONE (18:47)
[2018-12-14] MEDS ORDERED: LASIX ONE (18:47)
[2018-12-14] MEDS ORDERED: COZAAR ONE (18:47)
[2018-12-14] MEDS ORDERED: ATIVAN ONE (18:51)
[2018-12-14] MEDS: SOLU-Medrol IV SCH ×2 (18:55→23:39)
[2018-12-14] MEDS: LASIX PO SCH (18:56)
[2018-12-14] MEDS: ATIVAN PO SCH (18:56)
[2018-12-14] MEDS: PEPCID PO SCH (18:57)
[2018-12-14] MEDS: SINGULAIR PO SCH (18:58)
[2018-12-14] MEDS: SORBITOL 70% PO SCH (18:59)
[2018-12-14] MEDS: WELLBUTRIN SR PO SCH (18:59)
[2018-12-14] MEDS: ROCEPHIN/NS 2 GM/100 ML 2 GM/100 ML BAG IV SCH (19:15)
[2018-12-14] MEDS: ZITHROMAX 500 MG in NACL 0.9% 250ML 250 ML IV SCH (19:48)
[2018-12-14] MEDS: PULMICORT IH SCH (21:56)
[2018-12-14] MEDS: DUONEB *Not for PRN Use IH SCH (21:56)
[2018-12-14] MEDS: APRESOLINE PO SCH (23:19)
[2018-12-14] MEDS: ISORDIL TITRADOSE PO SCH (23:20)
[2018-12-14] MEDS: COZAAR PO SCH (23:21)
[2018-12-14] MEDS: COREG PO SCH (23:21)
[2018-12-14] MEDS: DESYREL PO SCH (23:22)
[2018-12-14] MEDS: LANTUS SUB-Q SCH (23:23)
[2018-12-14] MEDS: CLARITIN PO SCH (23:23)
[2018-12-15] MEDS: FLONASE NS SCH ×3 (00:12→23:07)
[2018-12-15] MEDS: SENOKOT PO SCH ×2 (00:12→23:19)
[2018-12-15] MEDS: ISORDIL TITRADOSE PO SCH ×3 (01:02→17:00)
[2018-12-15] MEDS: APRESOLINE PO SCH ×3 (01:02→16:59)
[2018-12-15] MEDS: DUONEB *Not for PRN Use IH SCH ×4 (04:09→19:24)
[2018-12-15] MEDS ORDERED: SOLU-Medrol ONE (05:35)
[2018-12-15] MEDS ORDERED: LASIX ONE (05:35)
--- NOTE | 2018-12-15 05:59 | Event Note ---
Date: 12/14/18 See H/p in reports Acute resp faiure with Hypercarbia COPD Exacerbation
[2018-12-15] MEDS: LASIX PO SCH (06:28)
[2018-12-15] MEDS: SOLU-Medrol IV SCH ×3 (06:28→23:13)
--- NOTE | 2018-12-15 06:28 | History and Physical Report ---
CHIEF COMPLAINT: 1. Increasing shortness of breath and wheezing. 2. Unresponsiveness. HISTORY OF PRESENT ILLNESS: A 48-year-old -[place] female from [facility] with severe COPD and end-stage lung disease, sent in for increasing shortness of breath and wheezing. Also, decreased responsiveness and being lethargic. The patient was recently discharged on 10/22/2018 after being treated for acute on chronic respiratory failure, COPD exacerbation, chronic systolic heart failure, type 2 diabetes, acute metabolic encephalopathy, NSTEMI type 2, morbid obesity, depression by history and dilated cardiomyopathy. The last visit was reviewed. The patient basically has severe COPD and end-stage lung disease. The patient comes in for being lethargic. No fever or chills. Compliant with medications. The patient was a heavy smoker in the past. PAST MEDICAL HISTORY: Significant for hypertension, congestive heart failure, diabetes, pulmonary embolism, history of schizophrenia and depressive disorder, asthma and dementia and obstructive sleep apnea. PAST SURGICAL HISTORY: Significant for partial hysterectomy and tracheostomy in the past. SOCIAL HISTORY: Smoked in the past. FAMILY HISTORY: Hypertension. CURRENT MEDICATIONS: On the chart. REVIEW OF SYSTEMS: Significant for being increasingly lethargic and wheezing and severely short of breath. The patient is on BiPAP during my examination. A 14-point review of systems is done. PHYSICAL EXAMINATION: GENERAL: A middle-aged female, obese, severe respiratory distress. Sats are low at the time of admission. Oxygen saturation was in the low 80s. VITAL SIGNS: Blood pressure is 146/85, pulse is 91, respiratory rate is 21, sats are 97%. HEENT: Unremarkable. BiPAP machine on the face. NECK: Supple. Accessory muscles of respiration are prominent. CHEST AND LUNGS: Inspiratory and expiratory rhonchi present. Diminished air entry present. CARDIOVASCULAR: S1, S2 heard. No gallop, no murmur, no rub. Apical impulse in left fifth intercostal space and midclavicular line. ABDOMEN: Soft and benign. No hepatosplenomegaly. No guarding, no rigidity. Hernial orifices are normal. EXTREMITIES: Good pedal pulses. Some pedal edema present. 2+ pedal edema present. Pulses could not be felt because of the obesity. CENTRAL NERVOUS SYSTEM: Lethargic. Moves all 4 extremities. LABORATORY DATA: Significant for white count of 15,200, H and H of 14.1 and 45.4, platelet count of 173,000. Sodium is 135, potassium is 5.4, BUN and creatinine is 21 and 1.6. Lactic acid is 2.4, AST is 58. Troponin is 0.178. TSH is 6.22. Urine negative. Drug screen negative. Chest x-ray shows left basilar effusion, mild bilateral parenchymal change, a combination of atelectasis and pneumonia is expected. Head CT, no acute findings. No acute infarcts. Head CT also shows chronic ischemic changes in the inferior frontal gyri bilaterally. ABG was significant for pCO2 of 120 reported by lab, but not on the [facility]. A pH is 7.153, pO2 is 122, HCO3 is 44.2, O2 sats 97%, FiO2 is 98%. ASSESSMENT AND PLAN: 1. Acute respiratory failure with hypercarbia. The patient has end-stage lung disease. We expect frequent decompensations. The patient is not DNR. BiPAP and intubation if necessary. IV Solu-Medrol, IV Levaquin and frequent around the clock nebulizer treatments initiated. 2. Chronic obstructive pulmonary disease exacerbation. Pulmonary consult was requested. IV Solu-Medrol, IV antibiotics and nebulizer treatments initiated. 3. Hypertension. Continue antihypertensives. 4. Congestive heart failure. Continue Lasix. 5. Hyperlipidemia. Continue atorvastatin. 6. Insulin-dependent diabetes. Continue insulin and coverage. 7. Congestive heart failure. Continue Lasix. 8. Asthma. Continue Singulair. 9. Depression. Continue trazodone. 10. Deep venous thrombosis prophylaxis. The patient on Lovenox 40 mg subcutaneous daily. 11. Acute kidney injury. Gentle patient on Lasix. Acute kidney injury, mild. We will monitor the creatinine. 12. Non-ST elevation myocardial infarction type 2. Troponin is elevated because of non-ST elevation myocardial infarction type 2. Previous admission also the troponin was elevated. 13. Gastrointestinal prophylaxis, famotidine 20 mg once a day. In summary, the patient has acute respiratory failure with hypercarbia, COPD exacerbation, hypertension, CHF, asthma, depression, hyperlipidemia. Antibiotics were ceftriaxone and azithromycin. [facility]# [id number] VSM/NTS
[2018-12-15] MEDS: SORBITOL 70% PO SCH ×2 (06:29→17:00)
[2018-12-15] MEDS ORDERED: DUONEB *Not for PRN Use IH ONE (09:33)
[2018-12-15] MEDS ORDERED: PULMICORT IH ONE (09:33)
[2018-12-15] MEDS: PULMICORT IH SCH ×2 (09:36→19:24)
[2018-12-15] MEDS ORDERED: PEPCID ONE (10:05)
[2018-12-15] MEDS ORDERED: ECOTRIN PO ONE (10:05)
[2018-12-15] MEDS ORDERED: APRESOLINE ONE (10:06)
[2018-12-15] MEDS ORDERED: COZAAR ONE (10:06)
[2018-12-15] MEDS ORDERED: ATIVAN ONE (10:10)
[2018-12-15] MEDS: ATIVAN PO SCH (10:16)
[2018-12-15] MEDS: PEPCID PO SCH (10:17)
[2018-12-15] MEDS: COZAAR PO SCH (10:17)
[2018-12-15] MEDS: ECOTRIN PO SCH (10:17)
[2018-12-15] MEDS: WELLBUTRIN SR PO SCH (10:17)
--- NOTE | 2018-12-15 10:53 | Progress Note ---
Assessment and Plan Assessment and plan: --Acute on chronic hypoxic, hypercapnic respiratory failure; Secondary to acute exacerbation of COPD ,Oxygen titrate O2 sats to more than 90%, BiPAP as needed, If no improvement intubate as needed. --Acute exacerbation of COPD; Oxygen, nebulizers, IV steroids, IV antibiotics Inhalation steroids, pulmonary consult if needed --Hypertension; moderate control Continue current antihypertensives and when necessary medications --Acute kidney injury; vasomotor nephropathy, closely monitor renal function Avoid nephrotoxins, nephrology consult if no improvement --History of congestive heart failure; EF 40-45% in April 2018 Continue diuretics, beta blockers, alo inhibitors Input-output monitoring, low sodium diet, cardiology evaluation if needed --Type 2 diabetes mellitus; on insulin, A1c 10.4[6 months ago] Accu-Chek sliding scale coverage and ADA diet insulin as needed Diabetic education, nutrition consult if needed --Dyslipidemia; continue statin, low-cholesterol diet --Morbid obesity; BMI 54.9 Patient would benefit by bariatric surgical weight reduction program When medically stable, outpatient evaluation at discharge --Nonspecific elevation of troponins; probably NSTEMI type2 She denies chest pain, closely monitor --Lactic acidosis; supportive care --DVT prophylaxis; Lovenox --Full CODE STATUS --DC planning with case management Disposition; discharged back to [facility] when medically stable Plan of care reviewed with the patient, at the bedside and patient's nurse and case management Care time 32 minutes History Interval history: Morbidly obese 48-year-old female patient was admitted through emergency room with worsening shortness of breath acute on chronic respiratory failure as well as acute exacerbation of COPD; Patient required BiPAP and at the time of my evaluation is on Ventimask The patient is in mild distress, requesting pain medications Shortness of breath slightly improved still complains of intermittent shortness of breath Denies chest pain,Vital signs noted Alert awake oriented 3 Hospitalist Physical - Constitutional Vitals: Temp Pulse Resp BP Pulse Ox 98.9 F 98 H 20 113/96 96 12/14/18 22:28 12/15/18 09:37 12/15/18 09:37 12/15/18 07:00 12/15/18 09:38 General appearance: Present: mild distress, well-nourished, obese (morbidly obese) - EENT Eyes: Present: PERRL, EOM intact - Neck Neck: Present: supple, normal ROM - Respiratory Respiratory effort: labored Respiratory: bilateral: diminished, rhonchi, wheezing, negative: rales - Cardiovascular Rhythm: regular Heart Sounds: Present: S1 & S2 - Extremities Extremities: no ischemia Extremity abnormal: edema - Abdominal General gastrointestinal: soft, non-tender, non-distended, normal bowel sounds - Integumentary Integumentary: Present: clear, warm - Psychiatric Psychiatric: appropriate mood/affect, cooperative - Neurologic Neurologic: moves all extremities Results - Labs CBC & Chem 7: 12/14/18 06:00 12/14/18 06:00 Labs: Laboratory Last Values WBC 15.2 K/mm3 (4.5-11.0) H 12/14/18 06:00 RBC 4.50 M/mm3 (3.65-5.03) 12/14/18 06:00 Hgb 14.1 gm/dl (10.1-14.3) 12/14/18 06:00 Hct 45.4 % (30.3-42.9) H 12/14/18 06:00 MCV 101 fl (79-97) H 12/14/18 06:00 MCH 31 pg (28-32) 12/14/18 06:00 MCHC 31 % (30-34) 12/14/18 06:00 RDW 17.5 % (13.2-15.2) H 12/14/18 06:00 Plt Count 173 K/mm3 (140-440) 12/14/18 06:00 [place] % (Auto) 9.6 % (0.0-7.3) H 12/14/18 06:00 Eos % (Auto) 0.0 % (0.0-4.3) 12/14/18 06:00 [place] # 1.5 K/mm3 (0.0-0.8) H 12/14/18 06:00 Eos # 0.0 K/mm3 (0.0-0.4) 12/14/18 06:00 Baso # 0.1 K/mm3 (0.0-0.1) 12/14/18 06:00 Add Manual Diff Complete 12/14/18 06:00 Total Counted 100 12/14/18 06:00 Seg Neutrophils % 77.0 % (40.0-70.0) H 12/14/18 06:00 Seg Neuts % (Manual) 87.0 % (40.0-70.0) H 12/14/18 06:00 1.0 % 12/14/18 06:00 2.0 % (13.4-35.0) L 12/14/18 06:00 Reactive Lymphs % (Man) 0 % 12/14/18 06:00 10.0 % (0.0-7.3) H 12/14/18 06:00 0 % (0.0-4.3) 12/14/18 06:00 0 % (0.0-1.8) 12/14/18 06:00 0 % 12/14/18 06:00 0 % 12/14/18 06:00 0 % 12/14/18 06:00 0 % 12/14/18 06:00 Nucleated RBC % 3.0 % (0.0-0.9) H 12/14/18 06:00 Seg Neutrophils # 11.7 K/mm3 (1.8-7.7) H 12/14/18 06:00 Seg Neutrophils # Man 13.2 K/mm3 (1.8-7.7) H 12/14/18 06:00 Band Neutrophils # 0.2 K/mm3 12/14/18 06:00 0.3 K/mm3 (1.2-5.4) L 12/14/18 06:00 Abs React Lymphs (Man) 0.0 K/mm3 12/14/18 06:00 1.5 K/mm3 (0.0-0.8) H 12/14/18 06:00 0.0 K/mm3 (0.0-0.4) 12/14/18 06:00 0.0 K/mm3 (0.0-0.1) 12/14/18 06:00 0.0 K/mm3 12/14/18 06:00 0.0 K/mm3 12/14/18 06:00 0.0 K/mm3 12/14/18 06:00 Blast Cells # 0.0 K/mm3 12/14/18 06:00 WBC Morphology Not Reportable 12/14/18 06:00 Hypersegmented Neuts Not Reportable 12/14/18 06:00 Hyposegmented Neuts Not Reportable 12/14/18 06:00 Hypogranular Neuts Not Reportable 12/14/18 06:00 Not Reportable 12/14/18 06:00 Not Reportable 12/14/18 06:00 Not Reportable 12/14/18 06:00 Not Reportable 12/14/18 06:00 Not Reportable 12/14/18 06:00 Not Reportable 12/14/18 06:00 Consistent w auto 12/14/18 06:00 Not Reportable 12/14/18 06:00 Plt Clumps, EDTA Not Reportable 12/14/18 06:00 Not Reportable 12/14/18 06:00 Not Reportable 12/14/18 06:00 Not Reportable 12/14/18 06:00 Plt Morphology Comment Not Reportable 12/14/18 06:00 RBC Morphology Not Reportable 12/14/18 06:00 Dimorphic RBCs Not Reportable 12/14/18 06:00 Few 12/14/18 06:00 Not Reportable 12/14/18 06:00 Not Reportable 12/14/18 06:00 1+ 12/14/18 06:00 Not Reportable 12/14/18 06:00 1+ 12/14/18 06:00 Not Reportable 12/14/18 06:00 Not Reportable 12/14/18 06:00 Not Reportable 12/14/18 06:00 Not Reportable 12/14/18 06:00 Few 12/14/18 06:00 Not Reportable 12/14/18 06:00 Not Reportable 12/14/18 06:00 Not Reportable 12/14/18 06:00 Not Reportable 12/14/18 06:00 Not Reportable 12/14/18 06:00 Not Reportable 12/14/18 06:00 Not Reportable 12/14/18 06:00 Not Reportable 12/14/18 06:00 Acanthocytes (Spur) Not Reportable 12/14/18 06:00 Rouleaux Not Reportable 12/14/18 06:00 Not Reportable 12/14/18 06:00 Not Reportable 12/14/18 06:00 Not Reportable 12/14/18 06:00 Not Reportable 12/14/18 06:00 Hem Pathologist Commnt No 12/14/18 06:00 PT 13.5 Sec. (12.2-14.9) 12/14/18 06:45 INR 1.06 (0.87-1.13) 12/14/18 06:45 APTT 22.8 Sec. (24.2-36.6) L 12/14/18 06:45 POC ABG pH 7.293 (7.35-7.45) L 12/14/18 17:51 POC ABG pO2 73 (80-105) L 12/14/18 17:51 POC ABG HCO3 44.0 (22-26 mml/L) 12/14/18 17:51 POC ABG Total CO2 47 (23-27mmol/L) 12/14/18 17:51 POC ABG O2 Sat 91 12/14/18 17:51 POC ABG Base Excess 17 ((-2) - (+3)mmol/L) 12/14/18 17:51 50 % 12/14/18 17:51 Sodium 135 mmol/L (137-145) L 12/14/18 06:00 Potassium 5.4 mmol/L (3.6-5.0) H 12/14/18 06:00 Chloride 90.4 mmol/L (98-107) L 12/14/18 06:00 Carbon Dioxide 32 mmol/L (22-30) H 12/14/18 06:00 18 mmol/L 12/14/18 06:00 BUN 21 mg/dL (7-17) H 12/14/18 06:00 1.6 mg/dL (0.7-1.2) H 12/14/18 06:00 Estimated GFR 42 ml/min 12/14/18 06:00 13 % 12/14/18 06:00 Glucose 380 mg/dL (65-100) H 12/14/18 06:00 POC Glucose 100 (70-105) 12/15/18 06:25 Lactic Acid 2.20 mmol/L (0.7-2.0) H* 12/14/18 09:52 Calcium 8.7 mg/dL (8.4-10.2) 12/14/18 06:00 0.20 mg/dL (0.1-1.2) 12/14/18 06:00 AST 58 units/L (5-40) H 12/14/18 06:00 ALT 53 units/L (7-56) 12/14/18 06:00 69 units/L (35-129) 12/14/18 06:00 86.0 umol/L (25-60) H 12/14/18 06:45 0.178 ng/mL (0.00-0.029) H* 12/14/18 06:00 5.8 g/dL (6.3-8.2) L 12/14/18 06:00 3.5 g/dL (3.9-5) L 12/14/18 06:00 1.5 % 12/14/18 06:00 Triglycerides 100 mg/dL (2-149) 12/14/18 06:00 Cholesterol 169 mg/dL (50-199) 12/14/18 06:00 84 mg/dL (50-130) 12/14/18 06:00 82 mg/dL (40-59) H 12/14/18 06:00 2.06 % 12/14/18 06:00 TSH 6.220 mlU/mL (0.270-4.200) H 12/14/18 06:00 Free T4 0.77 ng/dL (0.76-1.46) 12/14/18 07:46 Yellow (Yellow) 12/14/18 12:58 Slightly-cloudy (Clear) 12/14/18 12:58 5.0 (5.0-7.0) 12/14/18 12:58 Ur Specific [place] 1.018 (1.003-1.030) 12/14/18 12:58 >2000 mg dl mg/dL (Negative) 12/14/18 12:58 >=500 mg/dL (Negative) 12/14/18 12:58 Neg mg/dL (Negative) 12/14/18 12:58 Neg (Negative) 12/14/18 12:58 Neg (Negative) 12/14/18 12:58 Neg (Negative) 12/14/18 12:58 < 2.0 mg/dL (<2.0) 12/14/18 12:58 Ur Leukocyte Esterase Neg (Negative) 12/14/18 12:58 4.0 /HPF (0.0-6.0) 12/14/18 12:58 2.0 /HPF (0.0-6.0) 12/14/18 12:58 U Epithel Cells (Auto) 1.0 /HPF (0-13.0) 12/14/18 12:58 Few /HPF 12/14/18 12:58 Salicylates < 0.3 mg/dL (2.8-20.0) L 12/14/18 06:00 Presumptive negative 12/14/18 12:58 Presumptive negative 12/14/18 12:58 Acetaminophen < 5.0 ug/mL (10.0-30.0) L 12/14/18 06:00 Ur Barbiturates Screen Presumptive negative 12/14/18 12:58 Ur Phencyclidine Scrn Presumptive negative 12/14/18 12:58 Ur Amphetamines Screen Presumptive negative 12/14/18 12:58 U Benzodiazepines Scrn Presumptive negative 12/14/18 12:58 Presumptive negative 12/14/18 12:58 U Marijuana (THC) Screen Presumptive negative 12/14/18 12:58 Disclamer 12/14/18 12:58 Plasma/Serum Alcohol < 0.01 % (0-0.07) 12/14/18 06:00 Active Medications - Current Medications Current Medications: Generic Name Dose Route Start Last Admin Trade Name Freq PRN Reason Stop Dose Admin Acetaminophen 325 mg 12/14/18 16:54 Tylenol PO Q6H PRN Pain, Mild (1-3) Acetaminophen/Hydrocodone Bitart 1 each 12/14/18 17:00 12/14/18 17:31 [place] 10/325 PO 1 each Q4H PRN Administration Pain , Severe (7-10) Albuterol 2.5 mg 12/14/18 16:54 Proventil IH Q3HRT PRN Shortness Of Breath Albuterol/Ipratropium 1 ampul 12/14/18 20:00 12/15/18 09:37 Duoneb *Not For Prn Use* IH 1 ampul Q6HRT JOE Administration Aspirin 325 mg 12/15/18 10:00 12/15/18 10:17 Ecotrin PO 325 mg DAILY JOE Administration Atorvastatin Calcium 40 mg 12/14/18 22:00 12/15/18 00:12 Lipitor PO Not Given QHS JOE Budesonide 0.5 mg 12/14/18 20:00 12/15/18 09:36 Pulmicort IH 0.5 mg Q12HRT JOE Administration Bupropion HCl 100 mg 12/14/18 18:00 12/15/18 10:17 Wellbutrin Sr PO 100 mg DAILY JOE Administration Carbamazepine 200 mg 12/14/18 18:00 12/15/18 10:17 Tegretol PO 200 mg DAILY JOE Administration Carvedilol 6.25 mg 12/14/18 22:00 12/14/18 23:21 Coreg PO Not Given BID JOE Famotidine 20 mg 12/14/18 18:00 12/15/18 10:17 Pepcid PO 20 mg DAILY JOE Administration Fluticasone Propionate 50 mcg 12/14/18 22:00 12/15/18 00:12 Flonase NS Not Given BID JOE Furosemide 20 mg 12/14/18 18:00 12/15/18 06:28 Lasix PO 20 mg DAILY@0600 JOE Administration Hydralazine HCl 37.5 mg 12/14/18 17:00 12/15/18 10:16 Apresoline PO 37.5 mg Q8H JOE Administration Ceftriaxone Sodium 2 gm in 100 mls @ 200 mls/hr 12/14/18 19:30 12/14/18 19:15 Rocephin/Ns 2 Gm/100 Ml IV 200 mls/hr Q24H JOE Administration Protocol Azithromycin 500 mg/ Sodium 250 mls @ 250 mls/hr 12/14/18 20:00 12/14/18 19:48 Chloride IV 250 mls/hr Q24HR JOE Administration Protocol Insulin Glargine 16 units 12/14/18 22:00 12/14/18 23:23 Lantus SUB-Q Not Given QHS JOE Isosorbide Dinitrate 20 mg 12/14/18 17:00 12/15/18 01:02 Isordil Titradose PO Not Given Q8H JOE Loratadine 10 mg 12/14/18 18:00 12/14/18 23:23 Claritin PO Not Given DAILY JOE Lorazepam 0.5 mg 12/14/18 18:00 12/15/18 10:16 Ativan PO 0.5 mg DAILY JOE Administration Losartan Potassium 50 mg 12/14/18 18:00 12/15/18 10:17 Cozaar PO 50 mg QDAY JOE Administration Methylprednisolone Sodium Succinate 125 mg 12/14/18 18:00 12/15/18 06:28 Solu-Medrol IV 125 mg Q8HR JOE Administration Montelukast Sodium 10 mg 12/14/18 18:00 12/14/18 18:58 Singulair PO 10 mg QPM JOE Administration Polyethylene Glycol 17 gm 12/14/18 17:00 Miralax 3350 PO QDAY PRN Constipation Quetiapine Fumarate 300 mg 12/14/18 22:00 12/15/18 10:17 Seroquel PO 300 mg BID JOE Administration Senna 17.2 mg 12/14/18 22:00 12/15/18 00:12 Senokot PO Not Given HS JOE Sorbitol 30 ml 12/14/18 18:00 12/15/18 06:29 Sorbitol 70% PO Not Given Q12H JOE Spironolactone 25 mg 12/15/18 10:00 Aldactone PO QDAY JOE Trazodone HCl 50 mg 12/14/18 22:00 12/14/18 23:22 Desyrel PO Not Given QHS JOE
[2018-12-15] MEDS: ALDACTONE PO SCH (11:40)
[2018-12-15] MEDS: CLARITIN PO SCH (11:40)
[2018-12-15] MEDS: COREG PO SCH ×2 (11:40→23:03)
[2018-12-15] MEDS: ZITHROMAX 500 MG in NACL 0.9% 250ML 250 ML IV SCH (15:45)
[2018-12-15] MEDS: SINGULAIR PO SCH (17:00)
[2018-12-15] MEDS: NORCO 10/325 PO PRN (17:01)
[2018-12-15] MEDS: ROCEPHIN/NS 2 GM/100 ML 2 GM/100 ML BAG IV SCH (22:58)
[2018-12-15] MEDS: DESYREL PO SCH (23:03)
[2018-12-15] MEDS ORDERED: D50W (25GM) Syringe IV PRN (23:06)
[2018-12-15] MEDS: LANTUS SUB-Q SCH (23:10)
[2018-12-16] MEDS: HumaLOG SUB-Q SCH ×5 (00:04→23:08)
[2018-12-16] MEDS: NORCO 10/325 PO PRN ×2 (02:09→06:45)
[2018-12-16] MEDS: APRESOLINE PO SCH ×3 (02:11→17:00)
[2018-12-16] MEDS: ISORDIL TITRADOSE PO SCH ×3 (02:13→17:00)
[2018-12-16] MEDS: DUONEB *Not for PRN Use IH SCH ×4 (04:50→19:57)
[2018-12-16] MEDS: LASIX PO SCH (06:24)
[2018-12-16] MEDS: SOLU-Medrol IV SCH ×3 (06:24→23:17)
[2018-12-16] MEDS: SORBITOL 70% PO SCH ×2 (06:25→18:00)
[2018-12-16 06:26] LABS: Alanine Aminotransferase 87 units/L (7-56); Albumin 3.2 g/dL (3.9-5); BUN/Creatinine Ratio 25; Basophils % (Auto) 0.5 % (0.0-1.8); Blood Urea Nitrogen 27 mg/dL (7-17); Calcium 8.4 mg/dL (8.4-10.2); Hematocrit 41.3 % (30.3-42.9); Hemoglobin 12.9 gm/dl (10.1-14.3); Hemolysis Index 81; Lymphocytes # (Auto) 0.7 K/mm3 (1.2-5.4); Lymphocytes % (Auto) 8.1 % (13.4-35.0); Mean Corpuscular HGB Conc 31 % (30-34); Mean Corpuscular Volume 99 fl (79-97); Monocytes # (Auto) 0.6 K/mm3 (0.0-0.8); Monocytes % (Auto) 7.2 % (0.0-7.3); Red Blood Count 4.19 M/mm3 (3.65-5.03); Red Cell Distribution Width 16.6 % (13.2-15.2)
[2018-12-16] MEDS ORDERED: HumaLOG SUB-Q SCH (07:30)
[2018-12-16] MEDS: PULMICORT IH SCH ×2 (08:21→19:57)
[2018-12-16 08:22] LABS: Platelet Count 114 K/mm3 (140-440)
--- NOTE | 2018-12-16 08:57 | Progress Note ---
Assessment and Plan Assessment and plan: --Hyperkalemia: Kayexalate,monitor K levels --Acute on chronic hypoxic, hypercapnic respiratory failure; Secondary to acute exacerbation of COPD ,Oxygen titrate O2 sats to more than 90%, BiPAP as needed, If no improvement intubate as needed. --Acute exacerbation of COPD; Oxygen, nebulizers, tapering doses of IV steroids, IV antibiotics Inhalation steroids, pulmonary consult if needed --Hypertension; moderate control Continue current antihypertensives and when necessary medications --Acute kidney injury; vasomotor nephropathy, closely monitor renal function Avoid nephrotoxins, nephrology consult if no improvement --History of congestive heart failure; EF 40-45% in April 2018 Continue diuretics, beta blockers, alo inhibitors Input-output monitoring, low sodium diet, cardiology evaluation if needed --Type 2 diabetes mellitus; on insulin, A1c 10.4[6 months ago] Accu-Chek sliding scale coverage and ADA diet insulin as needed Diabetic education, nutrition consult if needed --Dyslipidemia; continue statin, low-cholesterol diet --Morbid obesity; BMI 54.9 Patient would benefit by bariatric surgical weight reduction program When medically stable, outpatient evaluation at discharge --Nonspecific elevation of troponins; probably NSTEMI type2 She denies chest pain, closely monitor --Lactic acidosis; supportive care --DVT prophylaxis; Lovenox --Full CODE STATUS --DC planning with case management Disposition; discharged back to [facility] when medically stable Plan of care reviewed with the patient, at the bedside and patient's nurse and case management Care time 32 minutes History Interval history: Patient seen and examined medical records reviewed Patient feels slightly better today Status complaints of mild shortness of breath Alert awake oriented 3 Vital signs noted Hospitalist Physical - Constitutional Vitals: Temp Pulse Resp BP Pulse Ox 98.9 F 92 H 18 122/78 98 12/16/18 08:00 12/16/18 08:22 12/16/18 08:22 12/16/18 02:13 12/16/18 08:26 General appearance: Present: mild distress, well-nourished, obese (morbidly obese) - EENT Eyes: Present: PERRL, EOM intact - Neck Neck: Present: supple, normal ROM - Respiratory Respiratory effort: normal Respiratory: bilateral: diminished, rhonchi, negative: rales, wheezing - Cardiovascular Rhythm: regular Heart Sounds: Present: S1 & S2 - Extremities Extremities: no ischemia, No edema - Abdominal General gastrointestinal: soft, non-tender, non-distended, normal bowel sounds - Integumentary Integumentary: Present: clear, warm - Psychiatric Psychiatric: appropriate mood/affect, cooperative - Neurologic Neurologic: CNII-XII intact, moves all extremities Results - Labs CBC & Chem 7: 12/16/18 05:59 12/16/18 05:59 Labs: Laboratory Last Values WBC 8.2 K/mm3 (4.5-11.0) 12/16/18 05:59 RBC 4.19 M/mm3 (3.65-5.03) 12/16/18 05:59 Hgb 12.9 gm/dl (10.1-14.3) 12/16/18 05:59 Hct 41.3 % (30.3-42.9) 12/16/18 05:59 MCV 99 fl (79-97) H 12/16/18 05:59 MCH 31 pg (28-32) 12/16/18 05:59 MCHC 31 % (30-34) 12/16/18 05:59 RDW 16.6 % (13.2-15.2) H 12/16/18 05:59 Plt Count 114 K/mm3 (140-440) L 12/16/18 05:59 Lymph % (Auto) 8.1 % (13.4-35.0) L 12/16/18 05:59 [place] % (Auto) 7.2 % (0.0-7.3) 12/16/18 05:59 Eos % (Auto) 0.0 % (0.0-4.3) 12/16/18 05:59 Baso % (Auto) 0.5 % (0.0-1.8) 12/16/18 05:59 Lymph # 0.7 K/mm3 (1.2-5.4) L 12/16/18 05:59 [place] # 0.6 K/mm3 (0.0-0.8) 12/16/18 05:59 Eos # 0.0 K/mm3 (0.0-0.4) 12/16/18 05:59 Baso # 0.0 K/mm3 (0.0-0.1) 12/16/18 05:59 Add Manual Diff Complete 12/14/18 06:00 Total Counted 100 12/14/18 06:00 Seg Neutrophils % 84.2 % (40.0-70.0) H 12/16/18 05:59 Seg Neuts % (Manual) 87.0 % (40.0-70.0) H 12/14/18 06:00 1.0 % 12/14/18 06:00 2.0 % (13.4-35.0) L 12/14/18 06:00 Reactive Lymphs % (Man) 0 % 12/14/18 06:00 10.0 % (0.0-7.3) H 12/14/18 06:00 0 % (0.0-4.3) 12/14/18 06:00 0 % (0.0-1.8) 12/14/18 06:00 0 % 12/14/18 06:00 0 % 12/14/18 06:00 0 % 12/14/18 06:00 0 % 12/14/18 06:00 Nucleated RBC % 3.0 % (0.0-0.9) H 12/14/18 06:00 Seg Neutrophils # 6.9 K/mm3 (1.8-7.7) 12/16/18 05:59 Seg Neutrophils # Man 13.2 K/mm3 (1.8-7.7) H 12/14/18 06:00 Band Neutrophils # 0.2 K/mm3 12/14/18 06:00 0.3 K/mm3 (1.2-5.4) L 12/14/18 06:00 Abs React Lymphs (Man) 0.0 K/mm3 12/14/18 06:00 1.5 K/mm3 (0.0-0.8) H 12/14/18 06:00 0.0 K/mm3 (0.0-0.4) 12/14/18 06:00 0.0 K/mm3 (0.0-0.1) 12/14/18 06:00 0.0 K/mm3 12/14/18 06:00 0.0 K/mm3 12/14/18 06:00 0.0 K/mm3 12/14/18 06:00 Blast Cells # 0.0 K/mm3 08/27/19 06:00 WBC Morphology Not Reportable 12/14/18 06:00 Hypersegmented Neuts Not Reportable 12/14/18 06:00 Hyposegmented Neuts Not Reportable 12/14/18 06:00 Hypogranular Neuts Not Reportable 12/14/18 06:00 Not Reportable 12/14/18 06:00 Not Reportable 12/14/18 06:00 Not Reportable 12/14/18 06:00 Not Reportable 12/14/18 06:00 Not Reportable 12/14/18 06:00 Not Reportable 12/14/18 06:00 Consistent w auto 12/14/18 06:00 Not Reportable 12/14/18 06:00 Plt Clumps, EDTA Not Reportable 12/14/18 06:00 Not Reportable 12/14/18 06:00 Not Reportable 12/14/18 06:00 Not Reportable 12/14/18 06:00 Plt Morphology Comment Not Reportable 12/14/18 06:00 RBC Morphology Not Reportable 12/14/18 06:00 Dimorphic RBCs Not Reportable 12/14/18 06:00 Few 12/14/18 06:00 Not Reportable 12/14/18 06:00 Not Reportable 12/14/18 06:00 1+ 12/14/18 06:00 Not Reportable 12/14/18 06:00 1+ 12/14/18 06:00 Not Reportable 12/14/18 06:00 Not Reportable 12/14/18 06:00 Not Reportable 12/14/18 06:00 Not Reportable 12/14/18 06:00 Few 12/14/18 06:00 Not Reportable 12/14/18 06:00 Not Reportable 12/14/18 06:00 Not Reportable 12/14/18 06:00 Not Reportable 12/14/18 06:00 Not Reportable 12/14/18 06:00 Not Reportable 12/14/18 06:00 Not Reportable 12/14/18 06:00 Not Reportable 12/14/18 06:00 Acanthocytes (Spur) Not Reportable 12/14/18 06:00 Rouleaux Not Reportable 12/14/18 06:00 Not Reportable 12/14/18 06:00 Not Reportable 12/14/18 06:00 Not Reportable 12/14/18 06:00 Not Reportable 12/14/18 06:00 Hem Pathologist Commnt No 12/14/18 06:00 PT 13.5 Sec. (12.2-14.9) 12/14/18 06:45 INR 1.06 (0.87-1.13) 12/14/18 06:45 APTT 22.8 Sec. (24.2-36.6) L 12/14/18 06:45 POC ABG pH 7.293 (7.35-7.45) L 12/14/18 17:51 POC ABG pO2 73 (80-105) L 12/14/18 17:51 POC ABG HCO3 44.0 (22-26 mml/L) 12/14/18 17:51 POC ABG Total CO2 47 (23-27mmol/L) 12/14/18 17:51 POC ABG O2 Sat 91 12/14/18 17:51 POC ABG Base Excess 17 ((-2) - (+3)mmol/L) 12/14/18 17:51 50 % 12/14/18 17:51 Sodium 142 mmol/L (137-145) D 12/16/18 05:59 Potassium 5.4 mmol/L (3.6-5.0) H 12/16/18 05:59 Chloride 96.0 mmol/L (98-107) L 12/16/18 05:59 Carbon Dioxide 40 mmol/L (22-30) H D 12/16/18 05:59 11 mmol/L 12/16/18 05:59 BUN 27 mg/dL (7-17) H 12/16/18 05:59 1.1 mg/dL (0.7-1.2) 12/16/18 05:59 Estimated GFR > 60 ml/min 12/16/18 05:59 25 % 12/16/18 05:59 Glucose 355 mg/dL (65-100) H 12/16/18 05:59 POC Glucose 305 (70-105) H 12/16/18 08:16 Lactic Acid 2.20 mmol/L (0.7-2.0) H* 12/14/18 09:52 Calcium 8.4 mg/dL (8.4-10.2) 12/16/18 05:59 0.20 mg/dL (0.1-1.2) 12/16/18 05:59 AST 33 units/L (5-40) 12/16/18 05:59 ALT 87 units/L (7-56) H 12/16/18 05:59 58 units/L (35-129) 12/16/18 05:59 86.0 umol/L (25-60) H 12/14/18 06:45 0.178 ng/mL (0.00-0.029) H* 12/14/18 06:00 6.0 g/dL (6.3-8.2) L 12/16/18 05:59 3.2 g/dL (3.9-5) L 12/16/18 05:59 1.1 % 12/16/18 05:59 Triglycerides 100 mg/dL (2-149) 12/14/18 06:00 Cholesterol 169 mg/dL (50-199) 12/14/18 06:00 84 mg/dL (50-130) 12/14/18 06:00 82 mg/dL (40-59) H 12/14/18 06:00 2.06 % 12/14/18 06:00 TSH 6.220 mlU/mL (0.270-4.200) H 12/14/18 06:00 Free T4 0.77 ng/dL (0.76-1.46) 12/14/18 07:46 Yellow (Yellow) 12/14/18 12:58 Slightly-cloudy (Clear) 12/14/18 12:58 5.0 (5.0-7.0) 12/14/18 12:58 Ur Specific [place] 1.018 (1.003-1.030) 12/14/18 12:58 >2000 mg dl mg/dL (Negative) 12/14/18 12:58 >=500 mg/dL (Negative) 12/14/18 12:58 Neg mg/dL (Negative) 12/14/18 12:58 Neg (Negative) 12/14/18 12:58 Neg (Negative) 12/14/18 12:58 Neg (Negative) 12/14/18 12:58 < 2.0 mg/dL (<2.0) 12/14/18 12:58 Ur Leukocyte Esterase Neg (Negative) 12/14/18 12:58 4.0 /HPF (0.0-6.0) 12/14/18 12:58 2.0 /HPF (0.0-6.0) 12/14/18 12:58 U Epithel Cells (Auto) 1.0 /HPF (0-13.0) 12/14/18 12:58 Few /HPF 12/14/18 12:58 Salicylates < 0.3 mg/dL (2.8-20.0) L 12/14/18 06:00 Presumptive negative 12/14/18 12:58 Presumptive negative 12/14/18 12:58 Acetaminophen < 5.0 ug/mL (10.0-30.0) L 12/14/18 06:00 Ur Barbiturates Screen Presumptive negative 12/14/18 12:58 Ur Phencyclidine Scrn Presumptive negative 12/14/18 12:58 Ur Amphetamines Screen Presumptive negative 12/14/18 12:58 U Benzodiazepines Scrn Presumptive negative 12/14/18 12:58 Presumptive negative 12/14/18 12:58 U Marijuana (THC) Screen Presumptive negative 12/14/18 12:58 Disclamer 12/14/18 12:58 Plasma/Serum Alcohol < 0.01 % (0-0.07) 12/14/18 06:00 Active Medications - Current Medications Current Medications: Generic Name Dose Route Start Last Admin Trade Name Freq PRN Reason Stop Dose Admin Acetaminophen 325 mg 12/14/18 16:54 Tylenol PO Q6H PRN Pain, Mild (1-3) Acetaminophen/Hydrocodone Bitart 1 each 12/14/18 17:00 12/16/18 06:45 [place] 10/325 PO 1 each Q4H PRN Administration Pain , Severe (7-10) Albuterol 2.5 mg 12/14/18 16:54 Proventil IH Q3HRT PRN Shortness Of Breath Albuterol/Ipratropium 1 ampul 12/14/18 20:00 12/16/18 08:21 Duoneb *Not For Prn Use* IH 1 ampul Q6HRT JOE Administration Aspirin 325 mg 12/15/18 10:00 12/15/18 10:17 Ecotrin PO 325 mg DAILY JOE Administration Atorvastatin Calcium 40 mg 12/14/18 22:00 12/15/18 23:12 Lipitor PO 40 mg QHS JOE Administration Budesonide 0.5 mg 12/14/18 20:00 12/16/18 08:21 Pulmicort IH 0.5 mg Q12HRT JOE Administration Bupropion HCl 100 mg 12/14/18 18:00 12/15/18 10:17 Wellbutrin Sr PO 100 mg DAILY JOE Administration Carbamazepine 200 mg 12/14/18 18:00 12/15/18 10:17 Tegretol PO 200 mg DAILY JOE Administration Carvedilol 6.25 mg 12/14/18 22:00 12/15/18 23:03 Coreg PO 6.25 mg BID JOE Administration Dextrose 50 ml 12/15/18 23:06 D50w (25gm) Syringe IV PRN PRN Hypoglycemia Famotidine 20 mg 12/14/18 18:00 12/15/18 10:17 Pepcid PO 20 mg DAILY JOE Administration Fluticasone Propionate 50 mcg 12/14/18 22:00 12/15/18 23:07 Flonase NS 50 mcg BID JOE Administration Furosemide 20 mg 12/14/18 18:00 12/16/18 06:24 Lasix PO 20 mg DAILY@0600 JOE Administration Hydralazine HCl 37.5 mg 12/14/18 17:00 12/16/18 02:11 Apresoline PO 37.5 mg Q8H JOE Administration Ceftriaxone Sodium 2 gm in 100 mls @ 200 mls/hr 12/14/18 19:30 12/15/18 22:58 Rocephin/Ns 2 Gm/100 Ml IV 200 mls/hr Q24H JOE Administration Protocol Azithromycin 500 mg/ Sodium 250 mls @ 250 mls/hr 12/14/18 20:00 12/15/18 15:45 Chloride IV 250 mls/hr Q24HR JOE Administration Protocol Insulin Glargine 16 units 12/14/18 22:00 12/15/18 23:10 Lantus SUB-Q 16 units QHS OJE Administration Insulin Human Lispro 0 unit 12/16/18 00:00 12/16/18 00:04 Humalog SUB-Q 8 unit ACHS JOE Administration Protocol Isosorbide Dinitrate 20 mg 12/14/18 17:00 12/16/18 02:13 Isordil Titradose PO 20 mg Q8H JOE Administration Loratadine 10 mg 12/14/18 18:00 12/15/18 11:40 Claritin PO 10 mg DAILY JOE Administration Lorazepam 0.5 mg 12/14/18 18:00 12/15/18 10:16 Ativan PO 0.5 mg DAILY JOE Administration Losartan Potassium 50 mg 12/14/18 18:00 12/15/18 10:17 Cozaar PO 50 mg QDAY JOE Administration Methylprednisolone Sodium Succinate 125 mg 12/14/18 18:00 12/16/18 06:24 Solu-Medrol IV 125 mg Q8HR JOE Administration Montelukast Sodium 10 mg 12/14/18 18:00 12/15/18 17:00 Singulair PO 10 mg QPM JOE Administration Polyethylene Glycol 17 gm 12/14/18 17:00 Miralax 3350 PO QDAY PRN Constipation Quetiapine Fumarate 300 mg 12/14/18 22:00 12/15/18 23:14 Seroquel PO 300 mg BID JOE Administration Senna 17.2 mg 12/14/18 22:00 12/15/18 23:19 Senokot PO Not Given HS [facility] Sodium Polystyrene Sulfonate 30 gm 12/16/18 08:55 Kionex PO 12/16/18 08:56 ONCE ONE Sorbitol 30 ml 12/14/18 18:00 12/16/18 06:25 Sorbitol 70% PO 30 ml Q12H JOE Administration Spironolactone 25 mg 12/15/18 10:00 12/15/18 11:40 Aldactone PO 25 mg QDAY JOE Administration Trazodone HCl 50 mg 12/14/18 22:00 12/15/18 23:03 Desyrel PO 50 mg QHS JOE Administration
[2018-12-16] MEDS ORDERED: KIONEX PO NR (09:30)
[2018-12-16] MEDS: COZAAR PO SCH (09:56)
[2018-12-16] MEDS: ECOTRIN PO SCH (09:56)
[2018-12-16] MEDS: WELLBUTRIN SR PO SCH (09:56)
[2018-12-16] MEDS: COREG PO SCH ×2 (09:57→23:07)
[2018-12-16] MEDS: CLARITIN PO SCH (09:58)
[2018-12-16] MEDS: ATIVAN PO SCH (10:03)
[2018-12-16] MEDS: ALDACTONE PO SCH (10:04)
--- NOTE | 2018-12-16 10:04 | Consultation ---
History of Present Illness Consult date: 12/16/18 Requesting physician: SKIP CASTILLO Reason for consult: other (acute-chronic hypercapnic respiratory failure; AE- COPD; morbid obesity) History of present illness: HISTORY PER ED MEDICAL RECORDS 48-year-old -Stateless female presents to the emergency department by EMS from her [facility] after she was found unresponsive at about 5:30 AM this morning. Per EMS, the staff at [facility] had said that the patient had been complaining of shortness of breath and body pains throughout most of yesterday. They were treating this with Tylenol. Apparently a staff member saw the patient taking some Tylenol or some other medication at around 4:30 AM. She has a past medical history of [id number] diabetes, morbid obesity, obstructive sleep apnea, chronic respiratory failure with hypoxia, hyperl ipidemia, CHF, schizophrenia and bipolar disorder. The patient was found to have a pulse ox in the 80s with EMS arrival and improved with a non-rebreather. The patient is currently a poor historian secondary to her current medical condition. Patient seen and examined. Vitals, labs, medications, chart and imaging reviewed. Does not want to give me a history unless she is given double portion meals She is well known to our service with multiple admissions for acute on chronic hypercapnic respiratory failure with encephaloapthy. ABG in ED on presentation Ph: 7.153 PCO2: 120 PO2: 122 Bicarbonate: 48 Interpretation: uncompensated respiratory acidosis, metabolic alkalosis - Past Medical History Hx Hypertension: Yes Hx Heart Attack/AMI: Yes Hx Congestive Heart Failure: Yes Hx Diabetes: Yes Hx Deep Vein Thrombosis: No Hx Pulmonary Embolism: Yes Hx Liver Disease: No Hx Arthritis: Yes Hx Psychiatric Treatment: Yes (hx of schizophrenia, major depressive disorder) Hx Asthma: Yes Hx COPD: Yes Hx Dementia: Yes Hx HIV: No Additional medical history: Dysphasia. obstructive sleep apnea - Surgical History Hx Pacemaker: No Hx Internal Defibrillator: No Additional Surgical History: Partial hysterectomy. s/p Tracheostomy - Social History Smoking Status: Quit smoking, jail resident Medications and Allergies Allergies Allergy/AdvReac Type Severity Reaction Status Date / Time Penicillins Allergy Unknown Verified 08/24/18 22:32 Sulfa (Sulfonamide Allergy Unknown Verified 08/24/18 22:32 Antibiotics) sulfabenzamide Allergy Unknown Verified 08/24/18 22:32 Home Medications Medication Instructions Recorded Confirmed Last Taken Type ALBUTEROL NEB's [Proventil 0.083% 2.5 mg IH Q3HRT PRN #15 nebu 10/22/18 12/14/18 12/13/18 Rx NEBS] Acetaminophen [Acetaminophen TAB] 325 mg PO Q6H PRN #15 tablet 10/22/18 12/14/18 12/13/18 Rx Aspirin EC 325 mg PO DAILY #30 10/22/18 12/14/18 12/13/18 Rx AtorvaSTATin [Lipitor] 40 mg PO QHS #30 tablet 10/22/18 12/14/18 12/13/18 Rx Benzocaine/Mentho [Cepacol X 1 each MM Q2HR PRN #15 packet 10/22/18 12/14/18 11/22/18 Rx Strength] Budesonide [Pulmicort Respules] 0.5 mg IH Q12HRT #30 nebu 10/22/18 12/14/18 12/13/18 Rx Carvedilol [Coreg] 6.25 mg PO BID #60 tablet 10/22/18 12/14/18 12/13/18 Rx Famotidine [Pepcid] 20 mg PO DAILY #15 tablet 10/22/18 12/14/18 12/05/18 Rx Fluticasone [Flonase] 1 spray NS BID #1 10/22/18 12/14/18 12/05/18 Rx Furosemide [Lasix TAB] 20 mg PO QDAY #30 tablet 10/22/18 12/14/18 12/13/18 Rx HYDROcodone/APAP 10-325 [[place] 1 each PO Q4H PRN #15 tablet 10/22/18 12/14/18 12/13/18 Rx 10-325 mg TAB] Insulin Glargine [Lantus VIAL] 16 units SUB-Q QHS #30 units 10/22/18 12/14/18 12/13/18 Rx Ipratropium/Albuterol Sulfate 1 ampul IH Q6HRT #30 ampul.neb 10/22/18 12/14/18 12/13/18 Rx [DUONEB *Not for PRN Use*] Isosorbide Dinitrate [Isordil 20 mg PO Q8H #30 tablet 10/22/18 12/14/1812/13/19 Rx Titradose] LORazepam [Ativan] 0.5 mg PO DAILY #15 10/22/18 12/14/18 12/13/18 Rx Lispro Insulin [HumaLOG] 1 dose SUB-Q Q6HR #100 units 10/22/18 12/14/18 12/13/18 Rx Loratadine [Claritin] 10 mg PO DAILY #30 tab 10/22/18 12/14/18 11/29/18 Rx Losartan [Cozaar] 50 mg PO QDAY #30 tablet 10/22/18 12/14/18 12/13/18 Rx Montelukast [Singulair] 10 mg PO QHS #30 tablet 10/22/18 12/14/18 12/13/18 Rx Polyethylene Glycol 3350 [Miralax 17 gm PO QDAY PRN #15 powd.pack 10/22/18 12/14/18 12/13/18 Rx 3350] QUEtiapine [SEROquel] 300 mg PO BID #60 tablet 10/22/18 12/14/18 12/13/18 Rx Sennosides Tab [Senokot] 17.2 mg PO HS #30 10/22/18 12/14/18 12/13/18 Rx Sorbitol 70% 30 ml PO Q12H #30 10/22/18 12/14/18 12/13/18 Rx Spironolactone [Aldactone] 25 mg PO QDAY #30 tablet 10/22/18 12/14/18 12/13/18 Rx buPROPion SR [Wellbutrin SR] 100 mg PO DAILY #30 10/22/18 12/14/18 12/13/18 Rx carBAMazepine [Carbamazepine] 200 mg PO DAILY #30 10/22/18 12/14/18 12/13/18 Rx hydrALAZINE [Apresoline TAB] 37.5 mg PO Q8H #30 tablet 10/22/18 12/14/18 Rx predniSONE [Deltasone] 40 mg PO QDAY tablet 10/22/18 12/14/18 12/13/18 Rx traZODone [Desyrel] 50 mg PO QHS #30 10/22/18 12/14/18 12/13/18 Rx Active Meds: Active Medications Acetaminophen (Tylenol) 325 mg PO Q6H PRN PRN Reason: Pain, Mild (1-3) Acetaminophen/Hydrocodone Bitart ([place] 10/325) 1 each PO Q4H PRN PRN Reason: Pain , Severe (7-10) Last Admin: 12/16/18 06:45 Dose: 1 each Documented by: Albuterol (Proventil) 2.5 mg IH Q3HRT PRN PRN Reason: Shortness Of Breath Albuterol/Ipratropium (Duoneb *Not For Prn Use*) 1 ampul IH Q6HRT [facility] Last Admin: 12/16/18 08:21 Dose: 1 ampul Documented by: Aspirin (Ecotrin) 325 mg PO DAILY [facility] Last Admin: 12/16/18 09:56 Dose: 325 mg Documented by: Atorvastatin Calcium (Lipitor) 40 mg PO QHS [facility] Last Admin: 12/15/18 23:12 Dose: 40 mg Documented by: Budesonide (Pulmicort) 0.5 mg IH Q12HRT [facility] Last Admin: 12/16/18 08:21 Dose: 0.5 mg Documented by: Bupropion HCl (Wellbutrin Sr) 100 mg PO DAILY [facility] Last Admin: 12/16/18 09:56 Dose: 100 mg Documented by: Carbamazepine (Tegretol) 200 mg PO DAILY [facility] Last Admin: 12/16/18 09:56 Dose: 200 mg Documented by: Carvedilol (Coreg) 6.25 mg PO BID [facility] Last Admin: 12/16/18 09:57 Dose: 6.25 mg Documented by: Dextrose (D50w (25gm) Syringe) 50 ml IV PRN PRN PRN Reason: Hypoglycemia Famotidine (Pepcid) 20 mg PO DAILY [facility] Last Admin: 12/15/18 10:17 Dose: 20 mg Documented by: Fluticasone Propionate (Flonase) 50 mcg NS BID [facility] Last Admin: 12/15/18 23:07 Dose: 50 mcg Documented by: Furosemide (Lasix) 20 mg PO DAILY@0600 [facility] Last Admin: 12/16/18 06:24 Dose: 20 mg Documented by: Hydralazine HCl (Apresoline) 37.5 mg PO Q8H [facility] Last Admin: 12/16/18 02:11 Dose: 37.5 mg Documented by: Ceftriaxone Sodium (Rocephin/Ns 2 Gm/100 Ml) 2 gm in 100 mls @ 200 mls/hr IV Q24H [facility]; Protocol Last Admin: 12/15/18 22:58 Dose: 200 mls/hr Documented by: Azithromycin 500 mg/ Sodium (Chloride) 250 mls @ 250 mls/hr IV Q24HR [facility]; Protocol Last Admin: 12/15/18 15:45 Dose: 250 mls/hr Documented by: Insulin Glargine (Lantus) 16 units SUB-Q QHS [facility] Last Admin: 12/15/18 23:10 Dose: 16 units Documented by: Insulin Human Lispro (Humalog) 0 unit SUB-Q ACHS [facility]; Protocol Last Admin: 12/16/18 08:56 Dose: 8 unit Documented by: Isosorbide Dinitrate (Isordil Titradose) 20 mg PO Q8H [facility] Last Admin: 12/16/18 02:13 Dose: 20 mg Documented by: Loratadine (Claritin) 10 mg PO DAILY [facility] Last Admin: 12/16/18 09:58 Dose: 10 mg Documented by: Lorazepam (Ativan) 0.5 mg PO DAILY [facility] Last Admin: 12/15/18 10:16 Dose: 0.5 mg Documented by: Losartan Potassium (Cozaar) 50 mg PO QDAY [facility] Last Admin: 12/16/18 09:56 Dose: 50 mg Documented by: Methylprednisolone Sodium Succinate (Solu-Medrol) 125 mg IV Q8HR [facility] Last Admin: 12/16/18 06:24 Dose: 125 mg Documented by: Montelukast Sodium (Singulair) 10 mg PO QPM [facility] Last Admin: 12/15/18 17:00 Dose: 10 mg Documented by: Polyethylene Glycol (Miralax 3350) 17 gm PO QDAY PRN PRN Reason: Constipation Quetiapine Fumarate (Seroquel) 300 mg PO BID [facility] Last Admin: 12/15/18 23:14 Dose: 300 mg Documented by: Senna (Senokot) 17.2 mg PO HS [facility] Last Admin: 12/15/18 23:19 Dose: Not Given Documented by: Sodium Polystyrene Sulfonate (Kionex) 30 gm PO ONCE NR Stop: 12/16/18 14:00 Sorbitol (Sorbitol 70%) 30 ml PO Q12H [facility] Last Admin: 12/16/18 06:25 Dose: 30 ml Documented by: Spironolactone (Aldactone) 25 mg PO QDAY [facility] Last Admin: 12/15/18 11:40 Dose: 25 mg Documented by: Trazodone HCl (Desyrel) 50 mg PO QHS [facility] Last Admin: 12/15/18 23:03 Dose: 50 mg Documented by: Physical Examination Vital signs: Vital Signs Temp Pulse Resp BP Pulse Ox 97.9 F 105 H 16 112/84 97 12/14/18 05:42 12/14/18 05:42 12/14/18 05:42 12/14/18 05:42 12/14/18 05:42 General appearance: Present: mild distress, well-nourished, obese (morbidly obese) - EENT Eyes: Present: PERRL, EOM intact - Neck Neck: Present: supple, normal ROM - Respiratory Respiratory effort: normal Respiratory: bilateral: diminished, rhonchi, negative: rales, wheezing - Cardiovascular Rhythm: regular Heart Sounds: Present: S1 & S2 - Extremities Extremities: no ischemia, No edema - Abdominal General gastrointestinal: soft, non-tender, non-distended, normal bowel sounds - Integumentary Integumentary: Present: clear, warm - Psychiatric Psychiatric: uncooperative, shouting and belligerent - Neurologic Neurologic: moves all extremities Results - Laboratory Findings CBC and BMP: 12/16/18 05:59 12/17/18 05:54 ABG POC ABG pH 7.293 (7.35-7.45) L 12/14/18 17:51 POC ABG pO2 73 (80-105) L 12/14/18 17:51 POC ABG HCO3 44.0 (22-26 mml/L) 12/14/18 17:51 POC ABG Total CO2 47 (23-27mmol/L) 12/14/18 17:51 POC ABG O2 Sat 91 12/14/18 17:51 PT/INR, D-dimer PT 13.5 Sec. (12.2-14.9) 12/14/18 06:45 INR 1.06 (0.87-1.13) 12/14/18 06:45 Abnormal lab findings: Abnormal Labs 12/14/18 12/14/18 12/14/18 06:00 06:00 06:00 WBC 15.2 H Hct 45.4 H MCV 101 H RDW 17.5 H Plt Count Lymph % (Auto) [place] % (Auto) 9.6 H Lymph # [place] # 1.5 H Seg Neutrophils % 77.0 H Seg Neuts % (Manual) 87.0 H Lymphocytes % (Manual) 2.0 L Monocytes % (Manual) 10.0 H Nucleated RBC % 3.0 H Seg Neutrophils # 11.7 H Seg Neutrophils # Man 13.2 H Lymphocytes # (Manual) 0.3 L Monocytes # (Manual) 1.5 H APTT POC ABG pH POC ABG pO2 Sodium 135 L Potassium 5.4 H Chloride 90.4 L Carbon Dioxide 32 H BUN 21 H Creatinine 1.6 H Glucose 380 H POC Glucose Lactic Acid AST 58 H ALT Ammonia Troponin T 0.178 H* Total Protein 5.8 L Albumin 3.5 L HDL Cholesterol 82 H TSH 6.220 H Salicylates Acetaminophen 12/14/18 12/14/18 12/14/18 06:00 06:00 06:03 WBC Hct MCV RDW Plt Count Lymph % (Auto) [place] % (Auto) Lymph # [place] # Seg Neutrophils % Seg Neuts % (Manual) Lymphocytes % (Manual) Monocytes % (Manual) Nucleated RBC % Seg Neutrophils # Seg Neutrophils # Man Lymphocytes # (Manual) Monocytes # (Manual) APTT POC ABG pH POC ABG pO2 Sodium Potassium Chloride Carbon Dioxide BUN Creatinine Glucose POC Glucose 266 H Lactic Acid AST ALT Ammonia Troponin T Total Protein Albumin HDL Cholesterol TSH Salicylates < 0.3 L Acetaminophen < 5.0 L 12/14/18 12/14/18 12/14/18 06:45 06:45 07:31 WBC Hct MCV RDW Plt Count Lymph % (Auto) [place] % (Auto) Lymph # [place] # Seg Neutrophils % Seg Neuts % (Manual) Lymphocytes % (Manual) Monocytes % (Manual) Nucleated RBC % Seg Neutrophils # Seg Neutrophils # Man Lymphocytes # (Manual) Monocytes # (Manual) APTT 22.8 L POC ABG pH 7.153 L POC ABG pO2 122 H Sodium Potassium Chloride Carbon Dioxide BUN Creatinine Glucose POC Glucose Lactic Acid AST ALT Ammonia 86.0 H Troponin T Total Protein Albumin HDL Cholesterol TSH Salicylates Acetaminophen 12/14/18 12/14/18 12/14/18 07:46 09:52 09:57 WBC Hct MCV RDW Plt Count Lymph % (Auto) [place] % (Auto) Lymph # [place] # Seg Neutrophils % Seg Neuts % (Manual) Lymphocytes % (Manual) Monocytes % (Manual) Nucleated RBC % Seg Neutrophils # Seg Neutrophils # Man Lymphocytes # (Manual) Monocytes # (Manual) APTT POC ABG pH 7.269 L POC ABG pO2 63 L Sodium Potassium Chloride Carbon Dioxide BUN Creatinine Glucose POC Glucose Lactic Acid 2.40 H* 2.20 H* AST ALT Ammonia Troponin T Total Protein Albumin HDL Cholesterol TSH Salicylates Acetaminophen 12/14/18 12/15/18 12/15/18 17:51 12:14 22:38 WBC Hct MCV RDW Plt Count Lymph % (Auto) [place] % (Auto) Lymph # [place] # Seg Neutrophils % Seg Neuts % (Manual) Lymphocytes % (Manual) Monocytes % (Manual) Nucleated RBC % Seg Neutrophils # Seg Neutrophils # Man Lymphocytes # (Manual) Monocytes # (Manual) APTT POC ABG pH 7.293 L POC ABG pO2 73 L Sodium Potassium Chloride Carbon Dioxide BUN Creatinine Glucose POC Glucose 247 H 376 H Lactic Acid AST ALT Ammonia Troponin T Total Protein Albumin HDL Cholesterol TSH Salicylates Acetaminophen 12/16/18 12/16/18 12/16/18 05:59 05:59 08:16 WBC Hct MCV 99 H RDW 16.6 H Plt Count 114 L Lymph % (Auto) 8.1 L [place] % (Auto) Lymph # 0.7 L [place] # Seg Neutrophils % 84.2 H Seg Neuts % (Manual) Lymphocytes % (Manual) Monocytes % (Manual) Nucleated RBC % Seg Neutrophils # Seg Neutrophils # Man Lymphocytes # (Manual) Monocytes # (Manual) APTT POC ABG pH POC ABG pO2 Sodium Potassium 5.4 H Chloride 96.0 L Carbon Dioxide 40 H D BUN 27 H Creatinine Glucose 355 H POC Glucose 305 H Lactic Acid AST ALT 87 H Ammonia Troponin T Total Protein 6.0 L Albumin 3.2 L HDL Cholesterol TSH Salicylates Acetaminophen - Diagnostic Findings Chest x-ray: image reviewed (No acute pulmonary infiltrate) Assessment and Plan Acute on chronic hypoxic, hypercapnic respiratory failure; Acute exacerbation of COPD; Hypertension; moderate control Acute kidney injury; vasomotor nephropathy History of congestive heart failure; EF 40-45% in April 2018 Type 2 diabetes mellitus; on insulin, A1c 10.4[6 months ago] Dyslipidemia Morbid obesity; BMI 54.9 Nonspecific elevation of troponin; probably type 2 h/o Psychiatric disorder -NIPPV -Oxygen restrictive strategies, O2 sats 88-90% acceptable -Avoid narcotics -VTE prophylaxis -Avoid nephrotoxic agents, adjust all medications for CrCL/GFR -Deescalate antibiotics, no clear indication that this is an infectious exacerbation -Gentle IVF -Accuchecks with glycemic control, target blood glucose 140-180mg/dL -Monitor renal function -Bronchodilators, ICS -Monitor renal function -ABG in the morning -Heart failure measures, monitor closely especially with IVF hydration -Lifestyle modifications, weight loss -Resume home anti-schizophrenia medications. Thank you for consult Will follow, please do not hesitate to call with questions or concerns CONDITION: CRITICAL PROGNOSIS: GUARDED CODE STATUS: FULL CODE
[2018-12-16] MEDS: PEPCID PO SCH (10:05)
[2018-12-16] MEDS: ZITHROMAX 500 MG in NACL 0.9% 250ML 250 ML IV SCH (10:06)
[2018-12-16] MEDS: FLONASE NS SCH ×2 (10:07→22:00)
[2018-12-16] MEDS: SINGULAIR PO SCH (18:00)
[2018-12-16] MEDS: ROCEPHIN/NS 2 GM/100 ML 2 GM/100 ML BAG IV SCH (19:36)
[2018-12-16] MEDS: DESYREL PO SCH (23:07)
[2018-12-16] MEDS: LANTUS SUB-Q SCH (23:09)
[2018-12-16] MEDS: SENOKOT PO SCH (23:10)
[2018-12-17] MEDS: ISORDIL TITRADOSE PO SCH ×3 (00:33→17:04)
[2018-12-17] MEDS: APRESOLINE PO SCH ×3 (00:34→17:04)
[2018-12-17] MEDS: DUONEB *Not for PRN Use IH SCH ×5 (01:48→19:22)
[2018-12-17] MEDS: LASIX PO SCH (05:49)
[2018-12-17] MEDS: SOLU-Medrol IV SCH ×3 (05:50→22:37)
[2018-12-17] MEDS: SORBITOL 70% PO SCH ×2 (05:50→17:05)
[2018-12-17 06:32] LABS: BUN/Creatinine Ratio TNR; Blood Urea Nitrogen TNR mg/dL (7-17)
[2018-12-17 06:33] LABS: Calcium TNR mg/dL (8.4-10.2); Hemolysis Index TNR
[2018-12-17] MEDS: NORCO 10/325 PO PRN (06:40)
[2018-12-17] MEDS: PULMICORT IH SCH ×2 (07:59→19:22)
[2018-12-17] MEDS: HumaLOG SUB-Q SCH ×5 (08:51→21:45)
[2018-12-17] MEDS: ALDACTONE PO SCH (10:10)
[2018-12-17] MEDS: CLARITIN PO SCH (10:11)
[2018-12-17] MEDS: COREG PO SCH ×2 (10:11→22:00)
[2018-12-17] MEDS: ATIVAN PO SCH (10:11)
[2018-12-17] MEDS: PEPCID PO SCH (10:12)
[2018-12-17] MEDS: COZAAR PO SCH (10:12)
[2018-12-17] MEDS: FLONASE NS SCH ×2 (10:12→21:41)
[2018-12-17] MEDS: ECOTRIN PO SCH (10:12)
[2018-12-17] MEDS: WELLBUTRIN SR PO SCH (10:14)
--- NOTE | 2018-12-17 10:44 | Progress Note ---
Assessment and Plan Assessment and plan: 48-year-old morbidly obese female patient with multiple medical problems including COPD obesity hypoventilation obstructive sleep apnea bipolar disorder congestive heart failure was admitted through emergency room with acute on chronic hypoxic hypercapnic respiratory failure Requiring BiPAP and CPAP, --Acute on chronic hypoxic, hypercapnic respiratory failure; Secondary to acute exacerbation of COPD ,Oxygen titrate O2 sats to more than 90%, BiPAP as needed, If no improvement intubate as needed. --Acute exacerbation of COPD; Oxygen, nebulizers, tapering doses of IV steroids, IV antibiotics Inhalation steroids, pulmonary consult if needed --Hypertension; moderate control Continue current antihypertensives and when necessary medications --Acute kidney injury; vasomotor nephropathy, closely monitor renal function Avoid nephrotoxins, nephrology consult if no improvement --Hyperkalemia: Kayexalate,monitor K levels --History of congestive heart failure; EF 40-45% in April 2018 Continue diuretics, beta blockers, alo inhibitors Input-output monitoring, low sodium diet, cardiology evaluation if needed --Type 2 diabetes mellitus; uncontrolled on insulin, A1c 10.4[6 months ago] Accu-Chek sliding scale coverage and ADA diet insulin as needed Diabetic education, nutrition consult if needed --Dyslipidemia; continue statin, low-cholesterol diet --Morbid obesity; BMI 54.9 Patient would benefit by bariatric surgical weight reduction program When medically stable, outpatient evaluation at discharge --Nonspecific elevation of troponins; probably NSTEMI type2 She denies chest pain, closely monitor --Lactic acidosis; supportive care --DVT prophylaxis; Lovenox --Full CODE STATUS --DC planning with case management Disposition; discharged back to [facility] when medically stable Plan of care reviewed with the patient, at the bedside and patient's nurse and case management Care time 31 minutes History Interval history: Patient seen and examined medical records reviewed Patient feels slightly better on Ventimask Mild shortness of breath Alert awake oriented 3 Vital signs noted Hospitalist Physical - Constitutional Vitals: Temp Pulse Resp BP Pulse Ox 97.2 F L 95 H 17 137/65 100 12/17/18 03:55 12/17/18 10:12 12/17/18 08:11 12/17/18 10:12 12/17/18 08:11 General appearance: Present: mild distress, well-nourished, obese (morbidly obese) - EENT Eyes: Present: PERRL, EOM intact - Neck Neck: Present: supple, normal ROM - Respiratory Respiratory effort: normal Respiratory: bilateral: diminished, rhonchi, negative: rales, wheezing - Cardiovascular Rhythm: regular Heart Sounds: Present: S1 & S2 - Extremities Extremities: no ischemia, No edema Extremity abnormal: edema - Abdominal General gastrointestinal: soft, non-tender, non-distended, normal bowel sounds - Integumentary Integumentary: Present: clear, warm - Psychiatric Psychiatric: appropriate mood/affect, cooperative - Neurologic Neurologic: CNII-XII intact, moves all extremities Results - Labs CBC & Chem 7: 12/16/18 05:59 12/17/18 05:54 Labs: Laboratory Last Values WBC 8.2 K/mm3 (4.5-11.0) 12/16/18 05:59 RBC 4.19 M/mm3 (3.65-5.03) 12/16/18 05:59 Hgb 12.9 gm/dl (10.1-14.3) 12/16/18 05:59 Hct 41.3 % (30.3-42.9) 12/16/18 05:59 MCV 99 fl (79-97) H 12/16/18 05:59 MCH 31 pg (28-32) 12/16/18 05:59 MCHC 31 % (30-34) 12/16/18 05:59 RDW 16.6 % (13.2-15.2) H 12/16/18 05:59 Plt Count 114 K/mm3 (140-440) L 12/16/18 05:59 Lymph % (Auto) 8.1 % (13.4-35.0) L 12/16/18 05:59 [place] % (Auto) 7.2 % (0.0-7.3) 12/16/18 05:59 Eos % (Auto) 0.0 % (0.0-4.3) 12/16/18 05:59 Baso % (Auto) 0.5 % (0.0-1.8) 12/16/18 05:59 Lymph # 0.7 K/mm3 (1.2-5.4) L 12/16/18 05:59 [place] # 0.6 K/mm3 (0.0-0.8) 12/16/18 05:59 Eos # 0.0 K/mm3 (0.0-0.4) 12/16/18 05:59 Baso # 0.0 K/mm3 (0.0-0.1) 12/16/18 05:59 Add Manual Diff Complete 12/14/18 06:00 Total Counted 100 12/14/18 06:00 Seg Neutrophils % 84.2 % (40.0-70.0) H 12/16/18 05:59 Seg Neuts % (Manual) 87.0 % (40.0-70.0) H 12/14/18 06:00 1.0 % 12/14/18 06:00 2.0 % (13.4-35.0) L 12/14/18 06:00 Reactive Lymphs % (Man) 0 % 12/14/18 06:00 10.0 % (0.0-7.3) H 12/14/18 06:00 0 % (0.0-4.3) 12/14/18 06:00 0 % (0.0-1.8) 12/14/18 06:00 0 % 12/14/18 06:00 0 % 12/14/18 06:00 0 % 12/14/18 06:00 0 % 12/14/18 06:00 Nucleated RBC % 3.0 % (0.0-0.9) H 12/14/18 06:00 Seg Neutrophils # 6.9 K/mm3 (1.8-7.7) 12/16/18 05:59 Seg Neutrophils # Man 13.2 K/mm3 (1.8-7.7) H 12/14/18 06:00 Band Neutrophils # 0.2 K/mm3 12/14/18 06:00 0.3 K/mm3 (1.2-5.4) L 12/14/18 06:00 Abs React Lymphs (Man) 0.0 K/mm3 12/14/18 06:00 1.5 K/mm3 (0.0-0.8) H 12/14/18 06:00 0.0 K/mm3 (0.0-0.4) 12/14/18 06:00 0.0 K/mm3 (0.0-0.1) 12/14/18 06:00 0.0 K/mm3 12/14/18 06:00 0.0 K/mm3 12/14/18 06:00 0.0 K/mm3 12/14/18 06:00 Blast Cells # 0.0 K/mm3 12/14/18 06:00 WBC Morphology Not Reportable 12/14/18 06:00 Hypersegmented Neuts Not Reportable 12/14/18 06:00 Hyposegmented Neuts Not Reportable 12/14/18 06:00 Hypogranular Neuts Not Reportable 12/14/18 06:00 Not Reportable 12/14/18 06:00 Not Reportable 12/14/18 06:00 Not Reportable 12/14/18 06:00 Not Reportable 12/14/18 06:00 Not Reportable 12/14/18 06:00 Not Reportable 12/14/18 06:00 Consistent w auto 12/14/18 06:00 Not Reportable 12/14/18 06:00 Plt Clumps, EDTA Not Reportable 12/14/18 06:00 Not Reportable 12/14/18 06:00 Not Reportable 12/14/18 06:00 Not Reportable 12/14/18 06:00 Plt Morphology Comment Not Reportable 12/14/18 06:00 RBC Morphology Not Reportable 12/14/18 06:00 Dimorphic RBCs Not Reportable 12/14/18 06:00 Few 12/14/18 06:00 Not Reportable 12/14/18 06:00 Not Reportable 12/14/18 06:00 1+ 12/14/18 06:00 Not Reportable 12/14/18 06:00 1+ 12/14/18 06:00 Not Reportable 12/14/18 06:00 Not Reportable 12/14/18 06:00 Not Reportable 12/14/18 06:00 Not Reportable 12/14/18 06:00 Few 12/14/18 06:00 Not Reportable 12/14/18 06:00 Not Reportable 12/14/18 06:00 Not Reportable 12/14/18 06:00 Not Reportable 12/14/18 06:00 Not Reportable 12/14/18 06:00 Not Reportable 12/14/18 06:00 Not Reportable 12/14/18 06:00 Not Reportable 12/14/18 06:00 Acanthocytes (Spur) Not Reportable 12/14/18 06:00 Rouleaux Not Reportable 12/14/18 06:00 Not Reportable 12/14/18 06:00 Not Reportable 12/14/18 06:00 Not Reportable 12/14/18 06:00 Not Reportable 12/14/18 06:00 Hem Pathologist Commnt No 12/14/18 06:00 PT 13.5 Sec. (12.2-14.9) 12/14/18 06:45 INR 1.06 (0.87-1.13) 12/14/18 06:45 APTT 22.8 Sec. (24.2-36.6) L 12/14/18 06:45 POC ABG pH 7.293 (7.35-7.45) L 12/14/18 17:51 POC ABG pO2 73 (80-105) L 12/14/18 17:51 POC ABG HCO3 44.0 (22-26 mml/L) 12/14/18 17:51 POC ABG Total CO2 47 (23-27mmol/L) 12/14/18 17:51 POC ABG O2 Sat 91 12/14/18 17:51 POC ABG Base Excess 17 ((-2) - (+3)mmol/L) 12/14/18 17:51 50 % 12/14/18 17:51 Sodium TNR 12/17/18 05:54 Potassium mmol/L (3.6-5.0) 12/17/18 05:54 Chloride TNR 12/17/18 05:54 Carbon Dioxide TNR 12/17/18 05:54 TNR 12/17/18 05:54 BUN TNR 12/17/18 05:54 TNR 12/17/18 05:54 Estimated GFR TNR 12/17/18 05:54 TNR 12/17/18 05:54 Glucose TNR 12/17/18 05:54 POC Glucose 265 (70-105) H 12/17/18 08:43 Lactic Acid 2.20 mmol/L (0.7-2.0) H* 12/14/18 09:52 Calcium TNR 12/17/18 05:54 0.20 mg/dL (0.1-1.2) 12/16/18 05:59 AST 33 units/L (5-40) 12/16/18 05:59 ALT 87 units/L (7-56) H 12/16/18 05:59 58 units/L (35-129) 12/16/18 05:59 86.0 umol/L (25-60) H 12/14/18 06:45 0.178 ng/mL (0.00-0.029) H* 12/14/18 06:00 6.0 g/dL (6.3-8.2) L 12/16/18 05:59 3.2 g/dL (3.9-5) L 12/16/18 05:59 1.1 % 12/16/18 05:59 Triglycerides 100 mg/dL (2-149) 12/14/18 06:00 Cholesterol 169 mg/dL (50-199) 12/14/18 06:00 84 mg/dL (50-130) 12/14/18 06:00 82 mg/dL (40-59) H 12/14/18 06:00 2.06 % 12/14/18 06:00 TSH 6.220 mlU/mL (0.270-4.200) H 12/14/18 06:00 Free T4 0.77 ng/dL (0.76-1.46) 12/14/18 07:46 Yellow (Yellow) 12/14/18 12:58 Slightly-cloudy (Clear) 12/14/18 12:58 5.0 (5.0-7.0) 12/14/18 12:58 Ur Specific [place] 1.018 (1.003-1.030) 12/14/18 12:58 >2000 mg dl mg/dL (Negative) 12/14/18 12:58 >=500 mg/dL (Negative) 12/14/18 12:58 Neg mg/dL (Negative) 12/14/18 12:58 Neg (Negative) 12/14/18 12:58 Neg (Negative) 12/14/18 12:58 Neg (Negative) 12/14/18 12:58 < 2.0 mg/dL (<2.0) 12/14/18 12:58 Ur Leukocyte Esterase Neg (Negative) 12/14/18 12:58 4.0 /HPF (0.0-6.0) 12/14/18 12:58 2.0 /HPF (0.0-6.0) 12/14/18 12:58 U Epithel Cells (Auto) 1.0 /HPF (0-13.0) 12/14/18 12:58 Few /HPF 12/14/18 12:58 Salicylates < 0.3 mg/dL (2.8-20.0) L 12/14/18 06:00 Presumptive negative 12/14/18 12:58 Presumptive negative 12/14/18 12:58 Acetaminophen < 5.0 ug/mL (10.0-30.0) L 12/14/18 06:00 Ur Barbiturates Screen Presumptive negative 12/14/18 12:58 Ur Phencyclidine Scrn Presumptive negative 12/14/18 12:58 Ur Amphetamines Screen Presumptive negative 12/14/18 12:58 U Benzodiazepines Scrn Presumptive negative 12/14/18 12:58 Presumptive negative 12/14/18 12:58 U Marijuana (THC) Screen Presumptive negative 12/14/18 12:58 Disclamer 12/14/18 12:58 Plasma/Serum Alcohol < 0.01 % (0-0.07) 12/14/18 06:00 Active Medications - Current Medications Current Medications: Generic Name Dose Route Start Last Admin Trade Name Freq PRN Reason Stop Dose Admin Acetaminophen 325 mg 12/14/18 16:54 Tylenol PO Q6H PRN Pain, Mild (1-3) Acetaminophen/Hydrocodone Bitart 1 each 12/14/18 17:00 12/17/18 06:40 Satin 10/325 PO 1 each Q4H PRN Administration Pain , Severe (7-10) Albuterol 2.5 mg 12/14/18 16:54 Proventil IH Q3HRT PRN Shortness Of Breath Albuterol/Ipratropium 1 ampul 12/14/18 20:00 12/17/18 07:59 Duoneb *Not For Prn Use* IH 1 ampul Q6HRT JOE Administration Aspirin 325 mg 12/15/18 10:00 12/17/18 10:12 Ecotrin PO 325 mg DAILY JOE Administration Atorvastatin Calcium 40 mg 12/14/18 22:00 12/16/18 23:09 Lipitor PO 40 mg QHS JOE Administration Budesonide 0.5 mg 12/14/18 20:00 12/17/18 07:59 Pulmicort IH 0.5 mg Q12HRT JOE Administration Bupropion HCl 100 mg 12/14/18 18:00 12/17/18 10:14 Wellbutrin Sr PO 100 mg DAILY JOE Administration Carbamazepine 200 mg 12/14/18 18:00 12/17/18 10:13 Tegretol PO 200 mg DAILY JOE Administration Carvedilol 6.25 mg 12/14/18 22:00 12/17/18 10:11 Coreg PO 6.25 mg BID JOE Administration Dextrose 50 ml 12/15/18 23:06 D50w (25gm) Syringe IV PRN PRN Hypoglycemia Famotidine 20 mg 12/14/18 18:00 12/17/18 10:12 Pepcid PO 20 mg DAILY JOE Administration Fluticasone Propionate 50 mcg 12/14/18 22:00 12/17/18 10:12 Flonase NS 50 mcg BID JOE Administration Furosemide 20 mg 12/14/18 18:00 12/17/18 05:49 Lasix PO 20 mg DAILY@0600 JOE Administration Hydralazine HCl 37.5 mg 12/14/18 17:00 12/17/18 08:52 Apresoline PO 37.5 mg Q8H JOE Administration Ceftriaxone Sodium 2 gm in 100 mls @ 200 mls/hr 12/14/18 19:30 12/16/18 19:36 Rocephin/Ns 2 Gm/100 Ml IV 200 mls/hr Q24H JOE Administration Protocol Azithromycin 500 mg/ Sodium 250 mls @ 250 mls/hr 12/14/18 20:00 12/16/18 10:06 Chloride IV 250 mls/hr Q24HR JOE Administration Protocol Insulin Glargine 16 units 12/14/18 22:00 12/16/18 23:09 Lantus SUB-Q 16 units QHS JOE Administration Insulin Human Lispro 0 unit 12/16/18 00:00 12/17/18 08:51 Humalog SUB-Q 4 unit ACHS JOE Administration Protocol Isosorbide Dinitrate 20 mg 12/14/18 17:00 12/17/18 08:56 Isordil Titradose PO 20 mg Q8H JOE Administration Loratadine 10 mg 12/14/18 18:00 12/17/18 10:11 Claritin PO 10 mg DAILY JOE Administration Lorazepam 0.5 mg 12/14/18 18:00 12/17/18 10:11 Ativan PO 0.5 mg DAILY JOE Administration Losartan Potassium 50 mg 12/14/18 18:00 12/17/18 10:12 Cozaar PO 50 mg QDAY JOE Administration Methylprednisolone Sodium Succinate 80 mg 12/16/18 17:24 12/17/18 05:50 Solu-Medrol IV 80 mg Q8HR JOE Administration Montelukast Sodium 10 mg 12/14/18 18:00 12/16/18 18:00 Singulair PO 10 mg QPM JOE Administration Polyethylene Glycol 17 gm 12/14/18 17:00 Miralax 3350 PO QDAY PRN Constipation Quetiapine Fumarate 300 mg 12/14/18 22:00 12/17/18 10:13 Seroquel PO 300 mg BID JOE Administration Senna 17.2 mg 12/14/18 22:00 12/16/18 23:10 Senokot PO 17.2 mg HS JOE Administration Sorbitol 30 ml 12/14/18 18:00 12/17/18 05:50 Sorbitol 70% PO 30 ml Q12H JOE Administration Spironolactone 25 mg 12/15/18 10:00 12/17/18 10:10 Aldactone PO 25 mg QDAY JOE Administration Trazodone HCl 50 mg 12/14/18 22:00 12/16/18 23:07 Desyrel PO 50 mg QHS JOE Administration
[2018-12-17] MEDS: ZITHROMAX 500 MG in NACL 0.9% 250ML 250 ML IV SCH (12:13)
--- NOTE | 2018-12-17 12:27 | Progress Note ---
Assessment and Plan Acute on chronic hypoxic, hypercapnic respiratory failure; Acute exacerbation of COPD; Hypertension; moderate control Acute kidney injury; vasomotor nephropathy History of congestive heart failure; EF 40-45% in April 2018 Type 2 diabetes mellitus; on insulin, A1c 10.4[6 months ago] Dyslipidemia Morbid obesity; BMI 54.9 Nonspecific elevation of troponin; probably type 2 h/o Psychiatric disorder Thrombocytopenia -NIPPV -Oxygen restrictive strategies, O2 sats 88-90% acceptable -Avoid narcotics -VTE prophylaxis while monitoring platelet counts -Avoid nephrotoxic agents, adjust all medications for CrCL/GFR -Accuchecks with glycemic control, target blood glucose 140-180mg/dL -Monitor renal function -Bronchodilators, ICS -Monitor renal function -ABG in the morning -Heart failure measures, monitor closely especially with IVF hydration -Lifestyle modifications, weight loss -Chronic home anti-schizophrenia medications. -PT/OT, increase activity -Follow up ABG in the morning, get CXR in the morning CONDITION: FAIR PROGNOSIS: GUARDED CODE STATUS: FULL CODE Subjective Date of service: 12/17/18 Interval history: Patient is seen today for: acute and chronic hypercapnic-hypoxic respiratory failure; AE-COPD; Morbid obesity; sleep apnea; Seen and examined at bedside; 24hour events reviewed; nursing and respiratory care staff consulted; no adverse overnight events reported to me; Awake and alert. Vitals, albs,medications, chart reviewed. Wants to have double portions of her meals and 2 cups of coffee with every meal. She denies any chest pain, no fevers or chills. Objective - Exam Narrative Exam: General appearance: Present: mild distress, well-nourished, obese (morbidly obese) - EENT Eyes: Present: PERRL, EOM intact - Neck Neck: Present: supple, normal ROM - Respiratory Respiratory effort: normal Respiratory: bilateral: diminished, rhonchi, negative: rales, wheezing - Cardiovascular Rhythm: regular Heart Sounds: Present: S1 & S2 - Extremities Extremities: no ischemia, No edema - Abdominal General gastrointestinal: soft, non-tender, non-distended, normal bowel sounds - Integumentary Integumentary: Present: clear, warm - Psychiatric Psychiatric: cooperative, very insistent on getting her way - Neurologic Neurologic: moves all extremities, non-focal, cranial nerves intact Vital Signs - 12hr 12/17/18 12/17/1819 00:31 00:33 00:34 Temperature Pulse Rate 86 86 86 Pulse Rate [ Anterior] Respiratory 22 Rate Respiratory Rate [Anterior] Blood Pressure 137/70 137/70 137/70 O2 Sat by Pulse 97 Oximetry 12/17/18 12/17/18 12/17/18 00:41 00:51 01:00 Temperature Pulse Rate 86 85 83 Pulse Rate [ Anterior] Respiratory 21 18 20 Rate Respiratory Rate [Anterior] Blood Pressure 137/70 137/70 139/69 O2 Sat by Pulse 91 95 98 Oximetry 12/17/18 12/17/18 12/17/18 01:11 01:21 01:31 Temperature Pulse Rate 82 81 81 Pulse Rate [ Anterior] Respiratory 20 18 17 Rate Respiratory Rate [Anterior] Blood Pressure 139/69 139/69 139/69 O2 Sat by Pulse 98 98 99 Oximetry 12/17/18 12/17/18 12/17/18 01:41 01:51 02:01 Temperature Pulse Rate 88 95 H 99 H Pulse Rate [ Anterior] Respiratory 26 H 18 14 Rate Respiratory Rate [Anterior] Blood Pressure 139/69 139/69 133/106 O2 Sat by Pulse 98 98 92 Oximetry 12/17/18 12/17/18 12/17/18 02:10 02:21 02:31 Temperature Pulse Rate 89 86 84 Pulse Rate [ Anterior] Respiratory 17 23 21 Rate Respiratory Rate [Anterior] Blood Pressure 152/93 133/106 133/106 O2 Sat by Pulse 96 96 95 Oximetry 12/17/18 12/17/18 12/17/18 02:41 02:51 03:00 Temperature Pulse Rate 82 86 82 Pulse Rate [ Anterior] Respiratory 15 20 17 Rate Respiratory Rate [Anterior] Blood Pressure 133/106 133/106 145/80 O2 Sat by Pulse 96 94 95 Oximetry 12/17/18 12/17/18 12/17/18 03:11 03:21 03:31 Temperature Pulse Rate 79 80 79 Pulse Rate [ Anterior] Respiratory 38 H 22 17 Rate Respiratory Rate [Anterior] Blood Pressure 145/80 145/80 145/80 O2 Sat by Pulse 97 94 97 Oximetry 12/17/18 12/17/18 12/17/18 03:41 03:51 03:55 Temperature 97.2 F L Pulse Rate 81 81 Pulse Rate [ Anterior] Respiratory 20 14 Rate Respiratory Rate [Anterior] Blood Pressure 145/80 145/80 O2 Sat by Pulse 100 98 Oximetry 12/17/18 12/17/18 12/17/18 04:01 04:11 04:21 Temperature Pulse Rate 83 86 84 Pulse Rate [ Anterior] Respiratory 18 18 20 Rate Respiratory Rate [Anterior] Blood Pressure 181/92 181/92 181/92 O2 Sat by Pulse 100 100 90 Oximetry 12/17/18 12/17/18 12/17/18 04:31 04:41 04:51 Temperature Pulse Rate 82 81 81 Pulse Rate [ Anterior] Respiratory 23 19 16 Rate Respiratory Rate [Anterior] Blood Pressure 181/92 181/92 181/92 O2 Sat by Pulse 100 Oximetry 12/17/18 12/17/18 12/17/18 05:00 05:11 05:21 Temperature Pulse Rate 80 87 83 Pulse Rate [ Anterior] Respiratory 19 25 H 22 Rate Respiratory Rate [Anterior] Blood Pressure 131/77 131/77 131/77 O2 Sat by Pulse 84 99 99 Oximetry 12/17/18 12/17/18 12/17/18 05:31 05:41 05:51 Temperature Pulse Rate 82 80 82 Pulse Rate [ Anterior] Respiratory 19 19 15 Rate Respiratory Rate [Anterior] Blood Pressure 131/77 131/77 131/77 O2 Sat by Pulse 99 99 97 Oximetry 12/17/18 12/17/18 12/17/18 06:01 06:11 06:21 Temperature Pulse Rate 83 88 87 Pulse Rate [ Anterior] Respiratory 17 22 25 H Rate Respiratory Rate [Anterior] Blood Pressure 147/89 147/89 147/89 O2 Sat by Pulse 91 93 Oximetry 12/17/18 12/17/18 12/17/18 06:31 06:40 06:41 Temperature Pulse Rate 85 83 Pulse Rate [ Anterior] Respiratory 22 17 18 Rate Respiratory Rate [Anterior] Blood Pressure 147/89 147/89 O2 Sat by Pulse 94 97 Oximetry 12/17/18 12/17/18 12/17/18 06:51 07:01 07:11 Temperature Pulse Rate 82 80 79 Pulse Rate [ Anterior] Respiratory 23 22 19 Rate Respiratory Rate [Anterior] Blood Pressure 147/89 138/90 138/90 O2 Sat by Pulse 96 95 100 Oximetry 12/17/18 12/17/18 12/17/18 07:21 07:31 07:41 Temperature Pulse Rate 79 81 81 Pulse Rate [ Anterior] Respiratory 13 15 16 Rate Respiratory Rate [Anterior] Blood Pressure 138/90 138/90 138/90 O2 Sat by Pulse 100 100 100 Oximetry 12/17/18 12/17/18 12/17/18 07:51 08:00 08:01 Temperature Pulse Rate 83 81 Pulse Rate [ 82 Anterior] Respiratory 15 18 Rate Respiratory 15 Rate [Anterior] Blood Pressure 138/90 147/93 O2 Sat by Pulse 100 100 Oximetry 12/17/18 12/17/18 12/17/18 08:11 08:52 08:56 Temperature Pulse Rate 83 102 H 104 H Pulse Rate [ Anterior] Respiratory 17 Rate Respiratory Rate [Anterior] Blood Pressure 147/93 147/93 147/93 O2 Sat by Pulse 100 Oximetry 12/17/18 12/17/18 12/17/18 10:10 10:11 10:12 Temperature Pulse Rate 95 H 95 H 95 H Pulse Rate [ Anterior] Respiratory Rate Respiratory Rate [Anterior] Blood Pressure 137/65 137/65 137/65 O2 Sat by Pulse Oximetry CBC and BMP: 12/16/18 05:59 12/18/18 05:37 ABG, PT/INR, D-dimer: ABG POC ABG pH 7.293 (7.35-7.45) L 12/14/18 17:51 POC ABG pO2 73 (80-105) L 12/14/18 17:51 POC ABG HCO3 44.0 (22-26 mml/L) 12/14/18 17:51 POC ABG Total CO2 47 (23-27mmol/L) 12/14/18 17:51 POC ABG O2 Sat 91 12/14/18 17:51 PT/INR, D-dimer PT 13.5 Sec. (12.2-14.9) 12/14/18 06:45 INR 1.06 (0.87-1.13) 12/14/18 06:45 Abnormal lab findings: Abnormal Labs 12/14/18 12/14/18 12/14/18 06:00 06:00 06:00 WBC 15.2 H Hct 45.4 H MCV 101 H RDW 17.5 H Plt Count Lymph % (Auto) [place] % (Auto) 9.6 H Lymph # [place] # 1.5 H Seg Neutrophils % 77.0 H Seg Neuts % (Manual) 87.0 H Lymphocytes % (Manual) 2.0 L Monocytes % (Manual) 10.0 H Nucleated RBC % 3.0 H Seg Neutrophils # 11.7 H Seg Neutrophils # Man 13.2 H Lymphocytes # (Manual) 0.3 L Monocytes # (Manual) 1.5 H APTT POC ABG pH POC ABG pO2 Sodium 135 L Potassium 5.4 H Chloride 90.4 L Carbon Dioxide 32 H BUN 21 H Creatinine 1.6 H Glucose 380 H POC Glucose Lactic Acid AST 58 H ALT Ammonia Troponin T 0.178 H* Total Protein 5.8 L Albumin 3.5 L HDL Cholesterol 82 H TSH 6.220 H Salicylates Acetaminophen 12/14/18 12/14/18 12/14/18 06:00 06:00 06:03 WBC Hct MCV RDW Plt Count Lymph % (Auto) [place] % (Auto) Lymph # [place] # Seg Neutrophils % Seg Neuts % (Manual) Lymphocytes % (Manual) Monocytes % (Manual) Nucleated RBC % Seg Neutrophils # Seg Neutrophils # Man Lymphocytes # (Manual) Monocytes # (Manual) APTT POC ABG pH POC ABG pO2 Sodium Potassium Chloride Carbon Dioxide BUN Creatinine Glucose POC Glucose 266 H Lactic Acid AST ALT Ammonia Troponin T Total Protein Albumin HDL Cholesterol TSH Salicylates < 0.3 L Acetaminophen < 5.0 L 12/14/18 12/14/18 12/14/18 06:45 06:45 07:31 WBC Hct MCV RDW Plt Count Lymph % (Auto) [place] % (Auto) Lymph # [place] # Seg Neutrophils % Seg Neuts % (Manual) Lymphocytes % (Manual) Monocytes % (Manual) Nucleated RBC % Seg Neutrophils # Seg Neutrophils # Man Lymphocytes # (Manual) Monocytes # (Manual) APTT 22.8 L POC ABG pH 7.153 L POC ABG pO2 122 H Sodium Potassium Chloride Carbon Dioxide BUN Creatinine Glucose POC Glucose Lactic Acid AST ALT Ammonia 86.0 H Troponin T Total Protein Albumin HDL Cholesterol TSH Salicylates Acetaminophen 12/14/18 12/14/18 12/14/18 07:46 09:52 09:57 WBC Hct MCV RDW Plt Count Lymph % (Auto) [place] % (Auto) Lymph # [place] # Seg Neutrophils % Seg Neuts % (Manual) Lymphocytes % (Manual) Monocytes % (Manual) Nucleated RBC % Seg Neutrophils # Seg Neutrophils # Man Lymphocytes # (Manual) Monocytes # (Manual) APTT POC ABG pH 7.269 L POC ABG pO2 63 L Sodium Potassium Chloride Carbon Dioxide BUN Creatinine Glucose POC Glucose Lactic Acid 2.40 H* 2.20 H* AST ALT Ammonia Troponin T Total Protein Albumin HDL Cholesterol TSH Salicylates Acetaminophen 12/14/18 12/15/18 12/15/18 17:51 12:14 22:38 WBC Hct MCV RDW Plt Count Lymph % (Auto) [place] % (Auto) Lymph # [place] # Seg Neutrophils % Seg Neuts % (Manual) Lymphocytes % (Manual) Monocytes % (Manual) Nucleated RBC % Seg Neutrophils # Seg Neutrophils # Man Lymphocytes # (Manual) Monocytes # (Manual) APTT POC ABG pH 7.293 L POC ABG pO2 73 L Sodium Potassium Chloride Carbon Dioxide BUN Creatinine Glucose POC Glucose 247 H 376 H Lactic Acid AST ALT Ammonia Troponin T Total Protein Albumin HDL Cholesterol TSH Salicylates Acetaminophen 12/16/18 12/16/18 12/16/18 05:59 05:59 08:16 WBC Hct MCV 99 H RDW 16.6 H Plt Count 114 L Lymph % (Auto) 8.1 L [place] % (Auto) Lymph # 0.7 L [place] # Seg Neutrophils % 84.2 H Seg Neuts % (Manual) Lymphocytes % (Manual) Monocytes % (Manual) Nucleated RBC % Seg Neutrophils # Seg Neutrophils # Man Lymphocytes # (Manual) Monocytes # (Manual) APTT POC ABG pH POC ABG pO2 Sodium Potassium 5.4 H Chloride 96.0 L Carbon Dioxide 40 H D BUN 27 H Creatinine Glucose 355 H POC Glucose 305 H Lactic Acid AST ALT 87 H Ammonia Troponin T Total Protein 6.0 L Albumin 3.2 L HDL Cholesterol TSH Salicylates Acetaminophen 12/16/18 12/16/18 12/16/18 11:45 16:22 21:15 WBC Hct MCV RDW Plt Count Lymph % (Auto) [place] % (Auto) Lymph # [place] # Seg Neutrophils % Seg Neuts % (Manual) Lymphocytes % (Manual) Monocytes % (Manual) Nucleated RBC % Seg Neutrophils # Seg Neutrophils # Man Lymphocytes # (Manual) Monocytes # (Manual) APTT POC ABG pH POC ABG pO2 Sodium Potassium Chloride Carbon Dioxide BUN Creatinine Glucose POC Glucose 361 H 265 H 254 H Lactic Acid AST ALT Ammonia Troponin T Total Protein Albumin HDL Cholesterol TSH Salicylates Acetaminophen 12/17/18 08:43 WBC Hct MCV RDW Plt Count Lymph % (Auto) [place] % (Auto) Lymph # [place] # Seg Neutrophils % Seg Neuts % (Manual) Lymphocytes % (Manual) Monocytes % (Manual) Nucleated RBC % Seg Neutrophils # Seg Neutrophils # Man Lymphocytes # (Manual) Monocytes # (Manual) APTT POC ABG pH POC ABG pO2 Sodium Potassium Chloride Carbon Dioxide BUN Creatinine Glucose POC Glucose 265 H Lactic Acid AST ALT Ammonia Troponin T Total Protein Albumin HDL Cholesterol TSH Salicylates Acetaminophen Chest x-ray: image reviewed (right basilar atelectais, left base not captured in the film)
[2018-12-17] MEDS: SINGULAIR PO SCH (17:05)
[2018-12-17 17:57] LABS: BUN/Creatinine Ratio 25; Blood Urea Nitrogen 25 mg/dL (7-17); Calcium 8.6 mg/dL (8.4-10.2); Hemolysis Index 53
[2018-12-17] MEDS: ROCEPHIN/NS 2 GM/100 ML 2 GM/100 ML BAG IV SCH (19:33)
[2018-12-17] MEDS: DESYREL PO SCH (21:40)
[2018-12-17] MEDS: LANTUS SUB-Q SCH (21:43)
[2018-12-17] MEDS: SENOKOT PO SCH (21:44)
[2018-12-18] MEDS: ISORDIL TITRADOSE PO SCH ×3 (00:53→19:33)
[2018-12-18] MEDS: APRESOLINE PO SCH ×3 (00:54→19:32)
[2018-12-18] MEDS: DUONEB *Not for PRN Use IH SCH ×4 (02:57→20:04)
[2018-12-18] MEDS: SOLU-Medrol IV SCH ×3 (05:49→22:39)
[2018-12-18] MEDS: LASIX PO SCH (05:51)
[2018-12-18] MEDS: SORBITOL 70% PO SCH ×2 (05:51→19:33)
[2018-12-18 06:06] LABS: BUN/Creatinine Ratio 30; Blood Urea Nitrogen 24 mg/dL (7-17); Calcium 8.7 mg/dL (8.4-10.2); Hemolysis Index 126
[2018-12-18] MEDS: PULMICORT IH SCH ×2 (08:10→20:04)
[2018-12-18] MEDS: HumaLOG SUB-Q SCH ×7 (08:14→22:41)
[2018-12-18] MEDS: WELLBUTRIN SR PO SCH (10:33)
[2018-12-18] MEDS: ZITHROMAX 500 MG in NACL 0.9% 250ML 250 ML IV SCH (10:33)
[2018-12-18] MEDS: FLONASE NS SCH ×2 (10:34→22:38)
[2018-12-18] MEDS: ALDACTONE PO SCH (10:35)
[2018-12-18] MEDS: COZAAR PO SCH (10:35)
[2018-12-18] MEDS: ECOTRIN PO SCH (10:35)
[2018-12-18] MEDS: PEPCID PO SCH (10:35)
[2018-12-18] MEDS: CLARITIN PO SCH (10:36)
[2018-12-18] MEDS: COREG PO SCH ×2 (10:36→22:39)
[2018-12-18] MEDS: ATIVAN PO SCH (10:36)
--- NOTE | 2018-12-18 13:39 | Progress Note ---
History Interval history: pr states she feels better talks about therapy Hospitalist Physical - Constitutional Vitals: Temp Pulse Resp BP Pulse Ox 96.5 F L 98 H 21 154/83 94 12/18/18 08:00 12/18/18 12:00 12/18/18 12:00 12/18/18 10:36 12/18/18 12:00 General appearance: Present: mild distress, well-nourished, obese (morbidly obe se) Results - Labs CBC & Chem 7: 12/16/18 05:59 12/18/18 05:37 Labs: Laboratory Last Values WBC 8.2 K/mm3 (4.5-11.0) 12/16/18 05:59 RBC 4.19 M/mm3 (3.65-5.03) 12/16/18 05:59 Hgb 12.9 gm/dl (10.1-14.3) 12/16/18 05:59 Hct 41.3 % (30.3-42.9) 12/16/18 05:59 MCV 99 fl (79-97) H 12/16/18 05:59 MCH 31 pg (28-32) 12/16/18 05:59 MCHC 31 % (30-34) 12/16/18 05:59 RDW 16.6 % (13.2-15.2) H 12/16/18 05:59 Plt Count 114 K/mm3 (140-440) L 12/16/18 05:59 Lymph % (Auto) 8.1 % (13.4-35.0) L 12/16/18 05:59 [place] % (Auto) 7.2 % (0.0-7.3) 12/16/18 05:59 Eos % (Auto) 0.0 % (0.0-4.3) 12/16/18 05:59 Baso % (Auto) 0.5 % (0.0-1.8) 12/16/18 05:59 Lymph # 0.7 K/mm3 (1.2-5.4) L 12/16/18 05:59 [place] # 0.6 K/mm3 (0.0-0.8) 12/16/18 05:59 Eos # 0.0 K/mm3 (0.0-0.4) 12/16/18 05:59 Baso # 0.0 K/mm3 (0.0-0.1) 12/16/18 05:59 Add Manual Diff Complete 12/14/18 06:00 Total Counted 100 12/14/18 06:00 Seg Neutrophils % 84.2 % (40.0-70.0) H 12/16/18 05:59 Seg Neuts % (Manual) 87.0 % (40.0-70.0) H 12/14/18 06:00 1.0 % 12/14/18 06:00 2.0 % (13.4-35.0) L 12/14/18 06:00 Reactive Lymphs % (Man) 0 % 12/14/18 06:00 10.0 % (0.0-7.3) H 12/14/18 06:00 0 % (0.0-4.3) 12/14/18 06:00 0 % (0.0-1.8) 12/14/18 06:00 0 % 12/14/18 06:00 0 % 12/14/18 06:00 0 % 12/14/18 06:00 0 % 12/14/18 06:00 Nucleated RBC % 3.0 % (0.0-0.9) H 12/14/18 06:00 Seg Neutrophils # 6.9 K/mm3 (1.8-7.7) 12/16/18 05:59 Seg Neutrophils # Man 13.2 K/mm3 (1.8-7.7) H 12/14/18 06:00 Band Neutrophils # 0.2 K/mm3 12/14/18 06:00 0.3 K/mm3 (1.2-5.4) L 12/14/18 06:00 Abs React Lymphs (Man) 0.0 K/mm3 12/14/18 06:00 1.5 K/mm3 (0.0-0.8) H 12/14/18 06:00 0.0 K/mm3 (0.0-0.4) 12/14/18 06:00 0.0 K/mm3 (0.0-0.1) 12/14/18 06:00 0.0 K/mm3 12/14/18 06:00 0.0 K/mm3 12/14/18 06:00 0.0 K/mm3 12/14/18 06:00 Blast Cells # 0.0 K/mm3 12/14/18 06:00 WBC Morphology Not Reportable 12/14/18 06:00 Hypersegmented Neuts Not Reportable 12/14/18 06:00 Hyposegmented Neuts Not Reportable 12/14/18 06:00 Hypogranular Neuts Not Reportable 12/14/18 06:00 Not Reportable 12/14/18 06:00 Not Reportable 12/14/18 06:00 Not Reportable 12/14/18 06:00 Not Reportable 12/14/18 06:00 Not Reportable 12/14/18 06:00 Not Reportable 12/14/18 06:00 Consistent w auto 12/14/18 06:00 Not Reportable 12/14/18 06:00 Plt Clumps, EDTA Not Reportable 12/14/18 06:00 Not Reportable 12/14/18 06:00 Not Reportable 12/14/18 06:00 Not Reportable 12/14/18 06:00 Plt Morphology Comment Not Reportable 12/14/18 06:00 RBC Morphology Not Reportable 12/14/18 06:00 Dimorphic RBCs Not Reportable 12/14/18 06:00 Few 12/14/18 06:00 Not Reportable 12/14/18 06:00 Not Reportable 12/14/18 06:00 1+ 12/14/18 06:00 Not Reportable 12/14/18 06:00 1+ 12/14/18 06:00 Not Reportable 12/14/18 06:00 Not Reportable 12/14/18 06:00 Not Reportable 12/14/18 06:00 Not Reportable 12/14/18 06:00 Few 12/14/18 06:00 Not Reportable 12/14/18 06:00 Not Reportable 12/14/18 06:00 Not Reportable 12/14/18 06:00 Not Reportable 12/14/18 06:00 Not Reportable 12/14/18 06:00 Not Reportable 12/14/18 06:00 Not Reportable 12/14/18 06:00 Not Reportable 12/14/18 06:00 Acanthocytes (Spur) Not Reportable 12/14/18 06:00 Rouleaux Not Reportable 12/14/18 06:00 Not Reportable 12/14/18 06:00 Not Reportable 12/14/18 06:00 Not Reportable 12/14/18 06:00 Not Reportable 12/14/18 06:00 Hem Pathologist Commnt No 12/14/18 06:00 PT 13.5 Sec. (12.2-14.9) 12/14/18 06:45 INR 1.06 (0.87-1.13) 12/14/18 06:45 APTT 22.8 Sec. (24.2-36.6) L 12/14/18 06:45 POC ABG pH 7.293 (7.35-7.45) L 12/14/18 17:51 POC ABG pO2 73 (80-105) L 12/14/18 17:51 POC ABG HCO3 44.0 (22-26 mml/L) 12/14/18 17:51 POC ABG Total CO2 47 (23-27mmol/L) 12/14/18 17:51 POC ABG O2 Sat 91 12/14/18 17:51 POC ABG Base Excess 17 ((-2) - (+3)mmol/L) 12/14/18 17:51 50 % 12/14/18 17:51 Sodium 138 mmol/L (137-145) 12/18/18 05:37 Potassium 5.9 mmol/L (3.6-5.0) H 12/18/18 05:37 Chloride 97.3 mmol/L (98-107) L 12/18/18 05:37 Carbon Dioxide 33 mmol/L (22-30) H 12/18/18 05:37 14 mmol/L 12/18/18 05:37 BUN 24 mg/dL (7-17) H 12/18/18 05:37 0.8 mg/dL (0.7-1.2) 12/18/18 05:37 Estimated GFR > 60 ml/min 12/18/18 05:37 30 % 12/18/18 05:37 Glucose 259 mg/dL (65-100) H 12/18/18 05:37 POC Glucose 326 (70-105) H 12/18/18 11:36 Lactic Acid 2.20 mmol/L (0.7-2.0) H* 12/14/18 09:52 Calcium 8.7 mg/dL (8.4-10.2) 12/18/18 05:37 Magnesium 2.80 mg/dL (1.7-2.3) H 12/18/18 05:37 0.20 mg/dL (0.1-1.2) 12/16/18 05:59 AST 33 units/L (5-40) 12/16/18 05:59 ALT 87 units/L (7-56) H 12/16/18 05:59 58 units/L (35-129) 12/16/18 05:59 86.0 umol/L (25-60) H 12/14/18 06:45 0.178 ng/mL (0.00-0.029) H* 12/14/18 06:00 6.0 g/dL (6.3-8.2) L 12/16/18 05:59 3.2 g/dL (3.9-5) L 12/16/18 05:59 1.1 % 12/16/18 05:59 Triglycerides 100 mg/dL (2-149) 12/14/18 06:00 Cholesterol 169 mg/dL (50-199) 12/14/18 06:00 84 mg/dL (50-130) 12/14/18 06:00 82 mg/dL (40-59) H 12/14/18 06:00 2.06 % 12/14/18 06:00 TSH 6.220 mlU/mL (0.270-4.200) H 12/14/18 06:00 Free T4 0.77 ng/dL (0.76-1.46) 12/14/18 07:46 Yellow (Yellow) 12/14/18 12:58 Slightly-cloudy (Clear) 12/14/18 12:58 5.0 (5.0-7.0) 12/14/18 12:58 Ur Specific [place] 1.018 (1.003-1.030) 12/14/18 12:58 >2000 mg dl mg/dL (Negative) 12/14/18 12:58 >=500 mg/dL (Negative) 12/14/18 12:58 Neg mg/dL (Negative) 12/14/18 12:58 Neg (Negative) 12/14/18 12:58 Neg (Negative) 12/14/18 12:58 Neg (Negative) 12/14/18 12:58 < 2.0 mg/dL (<2.0) 12/14/18 12:58 Ur Leukocyte Esterase Neg (Negative) 12/14/18 12:58 4.0 /HPF (0.0-6.0) 12/14/18 12:58 2.0 /HPF (0.0-6.0) 12/14/18 12:58 U Epithel Cells (Auto) 1.0 /HPF (0-13.0) 12/14/18 12:58 Few /HPF 12/14/18 12:58 Salicylates < 0.3 mg/dL (2.8-20.0) L 12/14/18 06:00 Presumptive negative 12/14/18 12:58 Presumptive negative 12/14/18 12:58 Acetaminophen < 5.0 ug/mL (10.0-30.0) L 12/14/18 06:00 Ur Barbiturates Screen Presumptive negative 12/14/18 12:58 Ur Phencyclidine Scrn Presumptive negative 12/14/18 12:58 Ur Amphetamines Screen Presumptive negative 12/14/18 12:58 U Benzodiazepines Scrn Presumptive negative 12/14/18 12:58 Presumptive negative 12/14/18 12:58 U Marijuana (THC) Screen Presumptive negative 12/14/18 12:58 Disclamer 12/14/18 12:58 Plasma/Serum Alcohol < 0.01 % (0-0.07) 12/14/18 06:00 Active Medications - Current Medications Current Medications: Generic Name Dose Route Start Last Admin Trade Name Freq PRN Reason Stop Dose Admin Acetaminophen 325 mg 12/14/18 16:54 Tylenol PO Q6H PRN Pain, Mild (1-3) Acetaminophen/Hydrocodone Bitart 1 each 12/14/18 17:00 12/17/18 06:40 [place] 10/325 PO 1 each Q4H PRN Administration Pain , Severe (7-10) Albuterol 2.5 mg 12/14/18 16:54 Proventil IH Q3HRT PRN Shortness Of Breath Albuterol/Ipratropium 1 ampul 12/14/18 20:00 12/18/18 08:10 Duoneb *Not For Prn Use* IH 1 ampul Q6HRT JOE Administration Aspirin 325 mg 12/15/18 10:00 12/18/18 10:35 Ecotrin PO 325 mg DAILY JOE Administration Atorvastatin Calcium 40 mg 12/14/18 22:00 12/17/18 21:43 Lipitor PO 40 mg QHS JOE Administration Budesonide 0.5 mg 12/14/18 20:00 12/18/18 08:10 Pulmicort IH 0.5 mg Q12HRT JOE Administration Bupropion HCl 100 mg 12/14/18 18:00 12/18/18 10:33 Wellbutrin Sr PO 100 mg DAILY JOE Administration Carbamazepine 200 mg 12/14/18 18:00 12/18/18 10:34 Tegretol PO 200 mg DAILY JOE Administration Carvedilol 6.25 mg 12/14/18 22:00 12/18/18 10:36 Coreg PO 6.25 mg BID JOE Administration Dextrose 50 ml 12/15/18 23:06 D50w (25gm) Syringe IV PRN PRN Hypoglycemia Famotidine 20 mg 12/14/18 18:00 12/18/18 10:35 Pepcid PO 20 mg DAILY JOE Administration Fluticasone Propionate 50 mcg 12/14/18 22:00 12/18/18 10:34 Flonase NS 50 mcg BID JOE Administration Furosemide 20 mg 12/14/18 18:00 12/18/18 05:51 Lasix PO 20 mg DAILY@0600 JOE Administration Hydralazine HCl 37.5 mg 12/14/18 17:00 12/18/18 08:14 Apresoline PO 37.5 mg Q8H JOE Administration Ceftriaxone Sodium 2 gm in 100 mls @ 200 mls/hr 12/14/18 19:30 12/17/18 19:33 Rocephin/Ns 2 Gm/100 Ml IV 200 mls/hr Q24H JOE Administration Protocol Azithromycin 500 mg/ Sodium 250 mls @ 250 mls/hr 12/14/18 20:00 12/18/18 10:33 Chloride IV 250 mls/hr Q24HR JOE Administration Protocol Insulin Glargine 20 units 12/17/18 22:00 12/17/18 21:43 Lantus SUB-Q 20 units QHS JOE Administration Insulin Human Lispro 0 unit 12/16/18 00:00 12/18/18 11:52 Humalog SUB-Q 6 unit ACHS JOE Administration Protocol Insulin Human Lispro 5 unit 12/17/18 16:30 12/18/18 11:52 Humalog SUB-Q 5 unit AC JOE Administration Isosorbide Dinitrate 20 mg 12/14/18 17:00 12/18/18 08:13 Isordil Titradose PO 20 mg Q8H JOE Administration Loratadine 10 mg 12/14/18 18:00 12/18/18 10:36 Claritin PO 10 mg DAILY JOE Administration Lorazepam 0.5 mg 12/14/18 18:00 12/18/18 10:36 Ativan PO 0.5 mg DAILY JOE Administration Losartan Potassium 50 mg 12/14/18 18:00 12/18/18 10:35 Cozaar PO 50 mg QDAY JOE Administration Methylprednisolone Sodium Succinate 80 mg 12/16/18 17:24 12/18/18 05:49 Solu-Medrol IV 80 mg Q8HR JOE Administration Montelukast Sodium 10 mg 12/14/18 18:00 12/17/18 17:05 Singulair PO 10 mg QPM JOE Administration Polyethylene Glycol 17 gm 12/14/18 17:00 Miralax 3350 PO QDAY PRN Constipation Quetiapine Fumarate 300 mg 12/14/18 22:00 12/18/18 10:35 Seroquel PO 300 mg BID JOE Administration Senna 17.2 mg 12/14/18 22:00 12/17/18 21:44 Senokot PO 17.2 mg HS JOE Administration Sorbitol 30 ml 12/14/18 18:00 12/18/18 05:51 Sorbitol 70% PO 30 ml Q12H JOE Administration Spironolactone 25 mg 12/15/18 10:00 12/18/18 10:35 Aldactone PO 25 mg QDAY JOE Administration Trazodone HCl 50 mg 12/14/18 22:00 12/17/18 21:40 Desyrel PO 50 mg QHS JOE Administration
--- NOTE | 2018-12-18 14:06 | Progress Note ---
Assessment and Plan Acute on chronic hypoxic, hypercapnic respiratory failure; Acute exacerbation of COPD; Hypertension; moderate control Acute kidney injury; vasomotor nephropathy History of congestive heart failure; EF 40-45% in April 2018 Type 2 diabetes mellitus; on insulin, A1c 10.4[6 months ago] Dyslipidemia Morbid obesity; BMI 54.9 Nonspecific elevation of troponin; probably type 2 h/o Psychiatric disorder Thrombocytopenia -NIPPV -Oxygen restrictive strategies, O2 sats 88-90% acceptable -Get ABG, follow up CXR -Avoid narcotics -VTE prophylaxis while monitoring platelet counts -Avoid nephrotoxic agents, adjust all medications for CrCL/GFR -Accuchecks with glycemic control, target blood glucose 140-180mg/dL -Monitor renal function -Bronchodilators, ICS -Monitor renal function -Heart failure measures, monitor closely especially with IVF hydration -Lifestyle modifications, weight loss -Chronic home anti-schizophrenia medications. -PT/OT, increase activity OK to transfer telemetry floor CONDITION: FAIR PROGNOSIS: GUARDED CODE STATUS: FULL CODE Subjective Date of service: 12/18/18 Interval history: Patient is seen today for: acute and chronic hypercapnic-hypoxic respiratory failure; AE-COPD; Morbid obesity; sleep apnea; Seen and examined at bedside; 24hour events reviewed; nursing and respiratory care staff consulted; no adverse overnight events reported to me; Awake and alert. Vitals, albs,medications, chart reviewed. Wants to have double portions of her meals and 2 cups of coffee with every meal. She denies any chest pain, no fevers or chills. Objective - Exam Narrative Exam: General appearance: Present: mild distress, well-nourished, obese (morbidly obese) - EENT Eyes: Present: PERRL, EOM intact - Neck Neck: Present: supple, normal ROM - Respiratory Respiratory effort: normal Respiratory: bilateral: diminished, rhonchi, negative: rales, wheezing - Cardiovascular Rhythm: regular Heart Sounds: Present: S1 & S2 - Extremities Extremities: no ischemia, No edema - Abdominal General gastrointestinal: soft, non-tender, non-distended, normal bowel sounds - Integumentary Integumentary: Present: clear, warm - Psychiatric Psychiatric: cooperative, very insistent on getting her way - Neurologic Neurologic: moves all extremities, non-focal, cranial nerves intact Vital Signs - 12hr 12/18/18 12/18/18 12/18/18 03:00 03:17 03:50 Temperature Pulse Rate 80 Pulse Rate [ 88 Anterior] Pulse Rate [ From Monitor] Respiratory 16 Rate Respiratory 23 Rate [Anterior] Blood Pressure 115/72 115/72 O2 Sat by Pulse 94 Oximetry 12/18/18 12/18/18 12/18/18 04:00 04:01 05:00 Temperature 97.5 F L Pulse Rate 82 Pulse Rate [ Anterior] Pulse Rate [ 72 From Monitor] Respiratory 18 16 Rate Respiratory Rate [Anterior] Blood Pressure 140/83 140/83 O2 Sat by Pulse 95 95 96 Oximetry 12/18/18 12/18/18 12/18/18 06:00 07:00 08:00 Temperature 96.5 F L Pulse Rate 75 91 H 77 Pulse Rate [ Anterior] Pulse Rate [ 93 H From Monitor] Respiratory 12 19 17 Rate Respiratory Rate [Anterior] Blood Pressure 155/102 165/101 160/97 O2 Sat by Pulse 97 94 95 Oximetry 12/18/18 12/18/18 12/18/18 08:11 08:13 08:14 Temperature Pulse Rate 78 79 Pulse Rate [ Anterior] Pulse Rate [ From Monitor] Respiratory Rate Respiratory Rate [Anterior] Blood Pressure 160/97 160/97 O2 Sat by Pulse 95 Oximetry 12/18/18 12/18/18 12/18/18 08:24 09:00 10:35 Temperature Pulse Rate 101 H 93 H Pulse Rate [ 78 Anterior] Pulse Rate [ From Monitor] Respiratory 15 Rate Respiratory 20 Rate [Anterior] Blood Pressure 155/88 152/83 O2 Sat by Pulse 92 Oximetry 12/18/18 12/18/18 10:36 12:00 Temperature Pulse Rate 94 H Pulse Rate [ Anterior] Pulse Rate [ 98 H From Monitor] Respiratory 21 Rate Respiratory Rate [Anterior] Blood Pressure 154/83 O2 Sat by Pulse 94 Oximetry CBC and BMP: 12/16/18 05:59 12/18/18 05:37 ABG, PT/INR, D-dimer: ABG POC ABG pH 7.293 (7.35-7.45) L 12/14/18 17:51 POC ABG pO2 73 (80-105) L 12/14/18 17:51 POC ABG HCO3 44.0 (22-26 mml/L) 12/14/18 17:51 POC ABG Total CO2 47 (23-27mmol/L) 12/14/18 17:51 POC ABG O2 Sat 91 12/14/18 17:51 PT/INR, D-dimer PT 13.5 Sec. (12.2-14.9) 12/14/18 06:45 INR 1.06 (0.87-1.13) 12/14/18 06:45 Abnormal lab findings: Abnormal Labs 12/14/18 12/14/18 12/14/18 06:00 06:00 06:00 WBC 15.2 H Hct 45.4 H MCV 101 H RDW 17.5 H Plt Count Lymph % (Auto) [place] % (Auto) 9.6 H Lymph # [place] # 1.5 H Seg Neutrophils % 77.0 H Seg Neuts % (Manual) 87.0 H Lymphocytes % (Manual) 2.0 L Monocytes % (Manual) 10.0 H Nucleated RBC % 3.0 H Seg Neutrophils # 11.7 H Seg Neutrophils # Man 13.2 H Lymphocytes # (Manual) 0.3 L Monocytes # (Manual) 1.5 H APTT POC ABG pH POC ABG pO2 Sodium 135 L Potassium 5.4 H Chloride 90.4 L Carbon Dioxide 32 H BUN 21 H Creatinine 1.6 H Glucose 380 H POC Glucose Lactic Acid Magnesium AST 58 H ALT Ammonia Troponin T 0.178 H* Total Protein 5.8 L Albumin 3.5 L HDL Cholesterol 82 H TSH 6.220 H Salicylates Acetaminophen 12/14/18 12/14/18 12/14/18 06:00 06:00 06:03 WBC Hct MCV RDW Plt Count Lymph % (Auto) [place] % (Auto) Lymph # [place] # Seg Neutrophils % Seg Neuts % (Manual) Lymphocytes % (Manual) Monocytes % (Manual) Nucleated RBC % Seg Neutrophils # Seg Neutrophils # Man Lymphocytes # (Manual) Monocytes # (Manual) APTT POC ABG pH POC ABG pO2 Sodium Potassium Chloride Carbon Dioxide BUN Creatinine Glucose POC Glucose 266 H Lactic Acid Magnesium AST ALT Ammonia Troponin T Total Protein Albumin HDL Cholesterol TSH Salicylates < 0.3 L Acetaminophen < 5.0 L 12/14/18 12/14/18 12/14/18 06:45 06:45 07:31 WBC Hct MCV RDW Plt Count Lymph % (Auto) [place] % (Auto) Lymph # [place] # Seg Neutrophils % Seg Neuts % (Manual) Lymphocytes % (Manual) Monocytes % (Manual) Nucleated RBC % Seg Neutrophils # Seg Neutrophils # Man Lymphocytes # (Manual) Monocytes # (Manual) APTT 22.8 L POC ABG pH 7.153 L POC ABG pO2 122 H Sodium Potassium Chloride Carbon Dioxide BUN Creatinine Glucose POC Glucose Lactic Acid Magnesium AST ALT Ammonia 86.0 H Troponin T Total Protein Albumin HDL Cholesterol TSH Salicylates Acetaminophen 12/14/18 12/14/18 12/14/18 07:46 09:52 09:57 WBC Hct MCV RDW Plt Count Lymph % (Auto) [place] % (Auto) Lymph # [place] # Seg Neutrophils % Seg Neuts % (Manual) Lymphocytes % (Manual) Monocytes % (Manual) Nucleated RBC % Seg Neutrophils # Seg Neutrophils # Man Lymphocytes # (Manual) Monocytes # (Manual) APTT POC ABG pH 7.269 L POC ABG pO2 63 L Sodium Potassium Chloride Carbon Dioxide BUN Creatinine Glucose POC Glucose Lactic Acid 2.40 H* 2.20 H* Magnesium AST ALT Ammonia Troponin T Total Protein Albumin HDL Cholesterol TSH Salicylates Acetaminophen 12/14/18 12/15/18 12/15/18 17:51 12:14 22:38 WBC Hct MCV RDW Plt Count Lymph % (Auto) [place] % (Auto) Lymph # [place] # Seg Neutrophils % Seg Neuts % (Manual) Lymphocytes % (Manual) Monocytes % (Manual) Nucleated RBC % Seg Neutrophils # Seg Neutrophils # Man Lymphocytes # (Manual) Monocytes # (Manual) APTT POC ABG pH 7.293 L POC ABG pO2 73 L Sodium Potassium Chloride Carbon Dioxide BUN Creatinine Glucose POC Glucose 247 H 376 H Lactic Acid Magnesium AST ALT Ammonia Troponin T Total Protein Albumin HDL Cholesterol TSH Salicylates Acetaminophen 12/16/18 12/16/18 12/16/18 05:59 05:59 08:16 WBC Hct MCV 99 H RDW 16.6 H Plt Count 114 L Lymph % (Auto) 8.1 L [place] % (Auto) Lymph # 0.7 L [place] # Seg Neutrophils % 84.2 H Seg Neuts % (Manual) Lymphocytes % (Manual) Monocytes % (Manual) Nucleated RBC % Seg Neutrophils # Seg Neutrophils # Man Lymphocytes # (Manual) Monocytes # (Manual) APTT POC ABG pH POC ABG pO2 Sodium Potassium 5.4 H Chloride 96.0 L Carbon Dioxide 40 H D BUN 27 H Creatinine Glucose 355 H POC Glucose 305 H Lactic Acid Magnesium AST ALT 87 H Ammonia Troponin T Total Protein 6.0 L Albumin 3.2 L HDL Cholesterol TSH Salicylates Acetaminophen 12/16/18 12/16/18 12/16/18 11:45 16:22 21:15 WBC Hct MCV RDW Plt Count Lymph % (Auto) [place] % (Auto) Lymph # [place] # Seg Neutrophils % Seg Neuts % (Manual) Lymphocytes % (Manual) Monocytes % (Manual) Nucleated RBC % Seg Neutrophils # Seg Neutrophils # Man Lymphocytes # (Manual) Monocytes # (Manual) APTT POC ABG pH POC ABG pO2 Sodium Potassium Chloride Carbon Dioxide BUN Creatinine Glucose POC Glucose 361 H 265 H 254 H Lactic Acid Magnesium AST ALT Ammonia Troponin T Total Protein Albumin HDL Cholesterol TSH Salicylates Acetaminophen 12/17/18 12/17/18 12/17/18 08:43 12:03 16:58 WBC Hct MCV RDW Plt Count Lymph % (Auto) [place] % (Auto) Lymph # [place] # Seg Neutrophils % Seg Neuts % (Manual) Lymphocytes % (Manual) Monocytes % (Manual) Nucleated RBC % Seg Neutrophils # Seg Neutrophils # Man Lymphocytes # (Manual) Monocytes # (Manual) APTT POC ABG pH POC ABG pO2 Sodium Potassium 5.6 H Chloride 96.4 L Carbon Dioxide 38 H BUN 25 H Creatinine Glucose 266 H POC Glucose 265 H 343 H Lactic Acid Magnesium AST ALT Ammonia Troponin T Total Protein Albumin HDL Cholesterol TSH Salicylates Acetaminophen 12/17/18 12/17/18 12/18/18 17:16 21:47 05:37 WBC Hct MCV RDW Plt Count Lymph % (Auto) [place] % (Auto) Lymph # [place] # Seg Neutrophils % Seg Neuts % (Manual) Lymphocytes % (Manual) Monocytes % (Manual) Nucleated RBC % Seg Neutrophils # Seg Neutrophils # Man Lymphocytes # (Manual) Monocytes # (Manual) APTT POC ABG pH POC ABG pO2 Sodium Potassium 5.9 H Chloride 97.3 L Carbon Dioxide 33 H BUN 24 H Creatinine Glucose 259 H POC Glucose 251 H 304 H Lactic Acid Magnesium 2.80 H AST ALT Ammonia Troponin T Total Protein Albumin HDL Cholesterol TSH Salicylates Acetaminophen 12/18/18 12/18/18 07:38 11:36 WBC Hct MCV RDW Plt Count Lymph % (Auto) [place] % (Auto) Lymph # [place] # Seg Neutrophils % Seg Neuts % (Manual) Lymphocytes % (Manual) Monocytes % (Manual) Nucleated RBC % Seg Neutrophils # Seg Neutrophils # Man Lymphocytes # (Manual) Monocytes # (Manual) APTT POC ABG pH POC ABG pO2 Sodium Potassium Chloride Carbon Dioxide BUN Creatinine Glucose POC Glucose 288 H 326 H Lactic Acid Magnesium AST ALT Ammonia Troponin T Total Protein Albumin HDL Cholesterol TSH Salicylates Acetaminophen
[2018-12-18] MEDS: SINGULAIR PO SCH (19:33)
[2018-12-18] MEDS: NORCO 10/325 PO PRN (19:43)
[2018-12-18] MEDS: ROCEPHIN/NS 2 GM/100 ML 2 GM/100 ML BAG IV SCH (22:14)
[2018-12-18] MEDS: DESYREL PO SCH (22:39)
[2018-12-18] MEDS: SENOKOT PO SCH (22:40)
[2018-12-18] MEDS: LANTUS SUB-Q SCH (22:41)
[2018-12-18] MEDS: TYLENOL PO PRN (22:58)
[2018-12-19] MEDS: DUONEB *Not for PRN Use IH SCH ×4 (01:45→21:12)
[2018-12-19] MEDS: APRESOLINE PO SCH ×3 (03:58→18:13)
[2018-12-19] MEDS: ISORDIL TITRADOSE PO SCH ×3 (03:58→18:14)
[2018-12-19] MEDS: LASIX PO SCH (05:01)
[2018-12-19] MEDS: SOLU-Medrol IV SCH ×3 (05:01→22:18)
[2018-12-19] MEDS: SORBITOL 70% PO SCH ×2 (05:01→18:14)
[2018-12-19] MEDS: NORCO 10/325 PO PRN ×2 (05:06→15:53)
[2018-12-19] MEDS: PULMICORT IH SCH ×2 (07:41→21:12)
[2018-12-19] MEDS: COREG PO SCH ×2 (09:08→22:10)
[2018-12-19] MEDS: COZAAR PO SCH (09:09)
[2018-12-19] MEDS: ATIVAN PO SCH (09:10)
[2018-12-19] MEDS: ALDACTONE PO SCH (09:10)
[2018-12-19] MEDS: TYLENOL PO PRN (09:10)
[2018-12-19] MEDS: CLARITIN PO SCH (09:11)
[2018-12-19] MEDS: ECOTRIN PO SCH (09:11)
[2018-12-19] MEDS: WELLBUTRIN SR PO SCH (09:11)
[2018-12-19] MEDS: PEPCID PO SCH (09:11)
[2018-12-19] MEDS: HumaLOG SUB-Q SCH ×7 (09:18→22:19)
[2018-12-19] MEDS: FLONASE NS SCH ×2 (09:21→22:00)
[2018-12-19] MEDS: ZITHROMAX 500 MG in NACL 0.9% 250ML 250 ML IV SCH (09:25)
[2018-12-19 12:50] LABS: ABG Base Excess 13.6 mmol/L (-2.0-3.0); ABG HCO3 41.6 mmol/L (20.0-26.0); ABG Methemoglobin 0.6 % (0.0-1.5); ABG PCO2 68.3 mm Hg; ABG PH 7.403 pH Units (7.350-7.450); ABG PO2 45.5 mm Hg (80.0-90.0)
--- NOTE | 2018-12-19 13:48 | Progress Note ---
Assessment and Plan Acute on chronic hypoxic, hypercapnic respiratory failure; Acute exacerbation of COPD; Hypertension; moderate control Acute kidney injury; vasomotor nephropathy History of congestive heart failure; EF 40-45% in April 2018 Type 2 diabetes mellitus; on insulin, A1c 10.4[6 months ago] Dyslipidemia Morbid obesity; BMI 54.9 Nonspecific elevation of troponin; probably type 2 h/o Psychiatric disorder Thrombocytopenia Continue all care as outlined below. Discussed with RN/RT -NIPPV qhs and prn during the day -Oxygen restrictive strategies, O2 sats 88-90% acceptable -Get ABG, follow up CXR -Avoid narcotics -VTE prophylaxis while monitoring platelet counts -Avoid nephrotoxic agents, adjust all medications for CrCL/GFR -Accuchecks with glycemic control, target blood glucose 140-180mg/dL -Monitor renal function -Bronchodilators, ICS -Monitor renal function -Heart failure measures, monitor closely especially with IVF hydration -Lifestyle modifications, weight loss -Chronic home anti-schizophrenia medications. -PT/OT, increase activity CONDITION: FAIR PROGNOSIS: GUARDED CODE STATUS: FULL CODE Subjective Date of service: 12/19/18 Interval history: Patient is seen today for: acute and chronic hypercapnic-hypoxic respiratory failure; AE-COPD; Morbid obesity; sleep apnea; Seen and examined at bedside; 24hour events reviewed; nursing and respiratory care staff consulted; no adverse overnight events reported to me; Awake and alert. Vitals, labs,medications, chart reviewed. She denies any chest pain, no fevers or chills. Tolerating NIPPV at night, with improvement in gas exchange and her mental status Objective - Exam Narrative Exam: General appearance: Present: mild distress, well-nourished, obese (morbidly obese) - EENT Eyes: Present: PERRL, EOM intact - Neck Neck: Present: supple, normal ROM, trachesotomy scar - Respiratory Respiratory effort: normal Respiratory: bilateral: diminished, rhonchi, negative: rales, wheezing - Cardiovascular Rhythm: regular Heart Sounds: Present: S1 & S2 - Extremities Extremities: no ischemia, No edema - Abdominal General gastrointestinal: soft, non-tender, non-distended, normal bowel sounds - Integumentary Integumentary: Present: clear, warm - Psychiatric Psychiatric: cooperative, very insistent on getting her way - Neurologic Neurologic: moves all extremities, non-focal, cranial nerves intact Vital Signs - 12hr 12/19/18 12/19/18 12/19/18 02:08 04:09 07:43 Temperature 98.2 F Pulse Rate 84 82 82 Pulse Rate [ 84 Anterior] Respiratory 17 16 16 Rate Respiratory 17 Rate [Anterior] Blood Pressure 126/81 126/81 O2 Sat by Pulse 93 93 95 Oximetry 12/19/18 12/19/18 12/19/18 08:52 09:10 10:00 Temperature 98.5 F Pulse Rate 96 H 82 Pulse Rate [ Anterior] Respiratory 22 24 Rate Respiratory Rate [Anterior] Blood Pressure 146/82 O2 Sat by Pulse 91 92 Oximetry CBC and BMP: 12/16/18 05:59 12/18/18 05:37 ABG, PT/INR, D-dimer: ABG POC ABG pH 7.324 (7.35-7.45) L 12/18/18 15:03 ABG pH 7.403 pH Units (7.350-7.450) 12/19/18 12:30 ABG pCO2 68.3 mm Hg 12/19/18 12:30 POC ABG pO2 51 (80-105) L 12/18/18 15:03 ABG pO2 45.5 mm Hg (80.0-90.0) L 12/19/18 12:30 POC ABG HCO3 43.3 (22-26 mml/L) 12/18/18 15:03 POC ABG Total CO2 46 (23-27mmol/L) 12/18/18 15:03 POC ABG O2 Sat 80 12/18/18 15:03 ABG O2 Saturation 81.0 % (95.0-99.0) L 12/19/18 12:30 PT/INR, D-dimer PT 13.5 Sec. (12.2-14.9) 12/14/18 06:45 INR 1.06 (0.87-1.13) 12/14/18 06:45 Abnormal lab findings: Abnormal Labs 12/14/18 12/14/18 12/14/18 06:00 06:00 06:00 WBC 15.2 H Hct 45.4 H MCV 101 H RDW 17.5 H Plt Count Lymph % (Auto) [place] % (Auto) 9.6 H Lymph # [place] # 1.5 H Seg Neutrophils % 77.0 H Seg Neuts % (Manual) 87.0 H Lymphocytes % (Manual) 2.0 L Monocytes % (Manual) 10.0 H Nucleated RBC % 3.0 H Seg Neutrophils # 11.7 H Seg Neutrophils # Man 13.2 H Lymphocytes # (Manual) 0.3 L Monocytes # (Manual) 1.5 H APTT POC ABG pH POC ABG pO2 ABG pO2 ABG HCO3 ABG O2 Saturation ABG Base Excess Oxyhemoglobin Sodium 135 L Potassium 5.4 H Chloride 90.4 L Carbon Dioxide 32 H BUN 21 H Creatinine 1.6 H Glucose 380 H POC Glucose Lactic Acid Magnesium AST 58 H ALT Ammonia Troponin T 0.178 H* Total Protein 5.8 L Albumin 3.5 L HDL Cholesterol 82 H TSH 6.220 H Salicylates Acetaminophen 12/14/18 12/14/18 12/14/18 06:00 06:00 06:03 WBC Hct MCV RDW Plt Count Lymph % (Auto) [place] % (Auto) Lymph # [place] # Seg Neutrophils % Seg Neuts % (Manual) Lymphocytes % (Manual) Monocytes % (Manual) Nucleated RBC % Seg Neutrophils # Seg Neutrophils # Man Lymphocytes # (Manual) Monocytes # (Manual) APTT POC ABG pH POC ABG pO2 ABG pO2 ABG HCO3 ABG O2 Saturation ABG Base Excess Oxyhemoglobin Sodium Potassium Chloride Carbon Dioxide BUN Creatinine Glucose POC Glucose 266 H Lactic Acid Magnesium AST ALT Ammonia Troponin T Total Protein Albumin HDL Cholesterol TSH Salicylates < 0.3 L Acetaminophen < 5.0 L 12/14/18 12/14/18 12/14/18 06:45 06:45 07:31 WBC Hct MCV RDW Plt Count Lymph % (Auto) [place] % (Auto) Lymph # [place] # Seg Neutrophils % Seg Neuts % (Manual) Lymphocytes % (Manual) Monocytes % (Manual) Nucleated RBC % Seg Neutrophils # Seg Neutrophils # Man Lymphocytes # (Manual) Monocytes # (Manual) APTT 22.8 L POC ABG pH 7.153 L POC ABG pO2 122 H ABG pO2 ABG HCO3 ABG O2 Saturation ABG Base Excess Oxyhemoglobin Sodium Potassium Chloride Carbon Dioxide BUN Creatinine Glucose POC Glucose Lactic Acid Magnesium AST ALT Ammonia 86.0 H Troponin T Total Protein Albumin HDL Cholesterol TSH Salicylates Acetaminophen 12/14/18 12/14/18 12/14/18 07:46 09:52 09:57 WBC Hct MCV RDW Plt Count Lymph % (Auto) [place] % (Auto) Lymph # [place] # Seg Neutrophils % Seg Neuts % (Manual) Lymphocytes % (Manual) Monocytes % (Manual) Nucleated RBC % Seg Neutrophils # Seg Neutrophils # Man Lymphocytes # (Manual) Monocytes # (Manual) APTT POC ABG pH 7.269 L POC ABG pO2 63 L ABG pO2 ABG HCO3 ABG O2 Saturation ABG Base Excess Oxyhemoglobin Sodium Potassium Chloride Carbon Dioxide BUN Creatinine Glucose POC Glucose Lactic Acid 2.40 H* 2.20 H* Magnesium AST ALT Ammonia Troponin T Total Protein Albumin HDL Cholesterol TSH Salicylates Acetaminophen 12/14/18 12/15/18 12/15/18 17:51 12:14 22:38 WBC Hct MCV RDW Plt Count Lymph % (Auto) [place] % (Auto) Lymph # [place] # Seg Neutrophils % Seg Neuts % (Manual) Lymphocytes % (Manual) Monocytes % (Manual) Nucleated RBC % Seg Neutrophils # Seg Neutrophils # Man Lymphocytes # (Manual) Monocytes # (Manual) APTT POC ABG pH 7.293 L POC ABG pO2 73 L ABG pO2 ABG HCO3 ABG O2 Saturation ABG Base Excess Oxyhemoglobin Sodium Potassium Chloride Carbon Dioxide BUN Creatinine Glucose POC Glucose 247 H 376 H Lactic Acid Magnesium AST ALT Ammonia Troponin T Total Protein Albumin HDL Cholesterol TSH Salicylates Acetaminophen 12/16/18 12/16/18 12/16/18 05:59 05:59 08:16 WBC Hct MCV 99 H RDW 16.6 H Plt Count 114 L Lymph % (Auto) 8.1 L [place] % (Auto) Lymph # 0.7 L [place] # Seg Neutrophils % 84.2 H Seg Neuts % (Manual) Lymphocytes % (Manual) Monocytes % (Manual) Nucleated RBC % Seg Neutrophils # Seg Neutrophils # Man Lymphocytes # (Manual) Monocytes # (Manual) APTT POC ABG pH POC ABG pO2 ABG pO2 ABG HCO3 ABG O2 Saturation ABG Base Excess Oxyhemoglobin Sodium Potassium 5.4 H Chloride 96.0 L Carbon Dioxide 40 H D BUN 27 H Creatinine Glucose 355 H POC Glucose 305 H Lactic Acid Magnesium AST ALT 87 H Ammonia Troponin T Total Protein 6.0 L Albumin 3.2 L HDL Cholesterol TSH Salicylates Acetaminophen 12/16/18 12/16/18 12/16/18 11:45 16:22 21:15 WBC Hct MCV RDW Plt Count Lymph % (Auto) [place] % (Auto) Lymph # [place] # Seg Neutrophils % Seg Neuts % (Manual) Lymphocytes % (Manual) Monocytes % (Manual) Nucleated RBC % Seg Neutrophils # Seg Neutrophils # Man Lymphocytes # (Manual) Monocytes # (Manual) APTT POC ABG pH POC ABG pO2 ABG pO2 ABG HCO3 ABG O2 Saturation ABG Base Excess Oxyhemoglobin Sodium Potassium Chloride Carbon Dioxide BUN Creatinine Glucose POC Glucose 361 H 265 H 254 H Lactic Acid Magnesium AST ALT Ammonia Troponin T Total Protein Albumin HDL Cholesterol TSH Salicylates Acetaminophen 12/17/18 12/17/18 12/17/18 08:43 12:03 16:58 WBC Hct MCV RDW Plt Count Lymph % (Auto) [place] % (Auto) Lymph # [place] # Seg Neutrophils % Seg Neuts % (Manual) Lymphocytes % (Manual) Monocytes % (Manual) Nucleated RBC % Seg Neutrophils # Seg Neutrophils # Man Lymphocytes # (Manual) Monocytes # (Manual) APTT POC ABG pH POC ABG pO2 ABG pO2 ABG HCO3 ABG O2 Saturation ABG Base Excess Oxyhemoglobin Sodium Potassium 5.6 H Chloride 96.4 L Carbon Dioxide 38 H BUN 25 H Creatinine Glucose 266 H POC Glucose 265 H 343 H Lactic Acid Magnesium AST ALT Ammonia Troponin T Total Protein Albumin HDL Cholesterol TSH Salicylates Acetaminophen 12/17/18 12/17/18 12/18/18 17:16 21:47 05:37 WBC Hct MCV RDW Plt Count Lymph % (Auto) [place] % (Auto) Lymph # [place] # Seg Neutrophils % Seg Neuts % (Manual) Lymphocytes % (Manual) Monocytes % (Manual) Nucleated RBC % Seg Neutrophils # Seg Neutrophils # Man Lymphocytes # (Manual) Monocytes # (Manual) APTT POC ABG pH POC ABG pO2 ABG pO2 ABG HCO3 ABG O2 Saturation ABG Base Excess Oxyhemoglobin Sodium Potassium 5.9 H Chloride 97.3 L Carbon Dioxide 33 H BUN 24 H Creatinine Glucose 259 H POC Glucose 251 H 304 H Lactic Acid Magnesium 2.80 H AST ALT Ammonia Troponin T Total Protein Albumin HDL Cholesterol TSH Salicylates Acetaminophen 12/18/18 12/18/18 12/18/18 07:38 11:36 15:03 WBC Hct MCV RDW Plt Count Lymph % (Auto) [place] % (Auto) Lymph # [place] # Seg Neutrophils % Seg Neuts % (Manual) Lymphocytes % (Manual) Monocytes % (Manual) Nucleated RBC % Seg Neutrophils # Seg Neutrophils # Man Lymphocytes # (Manual) Monocytes # (Manual) APTT POC ABG pH 7.324 L POC ABG pO2 51 L ABG pO2 ABG HCO3 ABG O2 Saturation ABG Base Excess Oxyhemoglobin Sodium Potassium Chloride Carbon Dioxide BUN Creatinine Glucose POC Glucose 288 H 326 H Lactic Acid Magnesium AST ALT Ammonia Troponin T Total Protein Albumin HDL Cholesterol TSH Salicylates Acetaminophen 12/18/18 12/18/18 12/19/18 17:08 21:15 08:17 WBC Hct MCV RDW Plt Count Lymph % (Auto) [place] % (Auto) Lymph # [place] # Seg Neutrophils % Seg Neuts % (Manual) Lymphocytes % (Manual) Monocytes % (Manual) Nucleated RBC % Seg Neutrophils # Seg Neutrophils # Man Lymphocytes # (Manual) Monocytes # (Manual) APTT POC ABG pH POC ABG pO2 ABG pO2 ABG HCO3 ABG O2 Saturation ABG Base Excess Oxyhemoglobin Sodium Potassium Chloride Carbon Dioxide BUN Creatinine Glucose POC Glucose 208 H 268 H 306 H Lactic Acid Magnesium AST ALT Ammonia Troponin T Total Protein Albumin HDL Cholesterol TSH Salicylates Acetaminophen 12/19/18 12/19/18 11:44 12:30 WBC Hct MCV RDW Plt Count Lymph % (Auto) [place] % (Auto) Lymph # [place] # Seg Neutrophils % Seg Neuts % (Manual) Lymphocytes % (Manual) Monocytes % (Manual) Nucleated RBC % Seg Neutrophils # Seg Neutrophils # Man Lymphocytes # (Manual) Monocytes # (Manual) APTT POC ABG pH POC ABG pO2 ABG pO2 45.5 L ABG HCO3 41.6 H ABG O2 Saturation 81.0 L ABG Base Excess 13.6 H Oxyhemoglobin 78.6 L Sodium Potassium Chloride Carbon Dioxide BUN Creatinine Glucose POC Glucose 265 H Lactic Acid Magnesium AST ALT Ammonia Troponin T Total Protein Albumin HDL Cholesterol TSH Salicylates Acetaminophen
[2018-12-19] MEDS: SINGULAIR PO SCH (18:14)
--- NOTE | 2018-12-19 19:29 | Progress Note ---
Assessment and Plan - Patient Problems (1) COPD exacerbation Current Visit: Yes Status: Acute Plan to address problem: Patient with COPD exacerbation. Continue nebulizers. BiPAP antibiotics azithromycin. And Rocephin. Pulmicort. Patient with obstructive sleep apnea hypoventilation syndrome okay to keep saturations at 88. Continue nebulizers steroids oxygen as we're doing. Brovana and Pulmicort has had success with current treatment and appears to be defervescent fairly well. Possibly discharge 1-2 days. (2) Acute and chronic respiratory failure with hypercapnia Current Visit: No Status: Acute Plan to address problem: Continue BiPAP. When necessary's would don't wean oxygen steroids. (3) Bipolar 1 disorder Current Visit: No Status: Acute Plan to address problem: At present stable with Seroquel and albuterol. Patient mood is stable. Not ac ting out. (4) Morbid obesity with BMI of 45.0-49.9, adult Current Visit: No Status: Acute Plan to address problem: Current weight loss dieting. Voodoo low carbohydrate diet. (5) O2 dependent Current Visit: No Status: Acute (6) Obesity hypoventilation syndrome Current Visit: No Status: Acute (7) CHF (congestive heart failure) Current Visit: No Status: Chronic Qualifiers: Plan to address problem: Patient heart failure well compensated this particular time ejection fraction 45% documented. Patient has no JVD minimal lower extremity edema and no evidence of failure on chest x-ray. 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 (8) Hyperlipidemia Current Visit: No Status: Chronic Qualifiers: Hyperlipidemia type: mixed hyperlipidemia Qualified Code(s): E78.2 - Mixed hyperlipidemia Plan to address problem: cotd statin. (9) Hypertension Current Visit: No Status: Chronic Qualifiers: Plan to address problem: Her blood pressure fairly well controlled. Continue current antihypertensives. (10) T2DM (type 2 diabetes mellitus) Current Visit: No Status: Chronic Plan to address problem: Blood sugars remain suboptimally controlled. We'll increase Lantus to 30 units daily at bedtime. attempt to wean towards one possible. History Interval history: 48 years old with a history of obesity, COPD, obesity hypoventilation syndrome sleep apnea and congestive heart failure. Presented with acute respiratory failure hypoxemic and hypercapnic respiratory failure. Discharge from ICU today. Patient breathing much better today able to in full sentences without much difficulty. Still requiring O2 at this time. Hospitalist Physical - Constitutional Vitals: Temp Pulse Resp BP Pulse Ox 99.2 F 96 H 20 142/92 91 12/19/18 16:06 12/19/18 16:06 12/19/18 16:06 12/19/18 16:06 12/19/18 16:06 General appearance: Present: mild distress, well-nourished, obese (morbidly obese) - EENT Eyes: Present: PERRL, EOM intact ENT: hearing intact, clear oral mucosa - Neck Neck: Present: supple, normal ROM - Respiratory Respiratory: bilateral: diminished - Cardiovascular Rhythm: regular - Extremities Extremities: no ischemia, pulses intact, pulses symmetrical, No edema, normal temperature, normal color Peripheral Pulses: within normal limits - Abdominal General gastrointestinal: soft, non-tender, non-distended, normal bowel sounds, hypoactive bowel sounds, other - Integumentary Integumentary: Present: clear, warm, dry - Psychiatric Psychiatric: appropriate mood/affect (obese), intact judgment & insight, memory intact - Neurologic Neurologic: CNII-XII intact, moves all extremities Results - Labs CBC & Chem 7: 12/16/18 05:59 12/18/18 05:37 Labs: Laboratory Last Values WBC 8.2 K/mm3 (4.5-11.0) 12/16/18 05:59 RBC 4.19 M/mm3 (3.65-5.03) 12/16/18 05:59 Hgb 12.9 gm/dl (10.1-14.3) 12/16/18 05:59 Hct 41.3 % (30.3-42.9) 12/16/18 05:59 MCV 99 fl (79-97) H 12/16/18 05:59 MCH 31 pg (28-32) 12/16/18 05:59 MCHC 31 % (30-34) 12/16/18 05:59 RDW 16.6 % (13.2-15.2) H 12/16/18 05:59 Plt Count 114 K/mm3 (140-440) L 12/16/18 05:59 Lymph % (Auto) 8.1 % (13.4-35.0) L 12/16/18 05:59 Nye % (Auto) 7.2 % (0.0-7.3) 12/16/18 05:59 Eos % (Auto) 0.0 % (0.0-4.3) 12/16/18 05:59 Baso % (Auto) 0.5 % (0.0-1.8) 12/16/18 05:59 Lymph # 0.7 K/mm3 (1.2-5.4) L 12/16/18 05:59 Nye # 0.6 K/mm3 (0.0-0.8) 12/16/18 05:59 Eos # 0.0 K/mm3 (0.0-0.4) 12/16/18 05:59 Baso # 0.0 K/mm3 (0.0-0.1) 12/16/18 05:59 Add Manual Diff Complete 12/14/18 06:00 Total Counted 100 12/14/18 06:00 Seg Neutrophils % 84.2 % (40.0-70.0) H 12/16/18 05:59 Seg Neuts % (Manual) 87.0 % (40.0-70.0) H 12/14/18 06:00 1.0 % 12/14/18 06:00 2.0 % (13.4-35.0) L 12/14/18 06:00 Reactive Lymphs % (Man) 0 % 12/14/18 06:00 10.0 % (0.0-7.3) H 12/14/18 06:00 0 % (0.0-4.3) 12/14/18 06:00 0 % (0.0-1.8) 12/14/18 06:00 0 % 12/14/18 06:00 0 % 12/14/18 06:00 0 % 12/14/18 06:00 0 % 12/14/18 06:00 Nucleated RBC % 3.0 % (0.0-0.9) H 12/14/18 06:00 Seg Neutrophils # 6.9 K/mm3 (1.8-7.7) 12/16/18 05:59 Seg Neutrophils # Man 13.2 K/mm3 (1.8-7.7) H 12/14/18 06:00 Band Neutrophils # 0.2 K/mm3 12/14/18 06:00 0.3 K/mm3 (1.2-5.4) L 12/14/18 06:00 Abs React Lymphs (Man) 0.0 K/mm3 12/14/18 06:00 1.5 K/mm3 (0.0-0.8) H 12/14/18 06:00 0.0 K/mm3 (0.0-0.4) 12/14/18 06:00 0.0 K/mm3 (0.0-0.1) 12/14/18 06:00 0.0 K/mm3 12/14/18 06:00 0.0 K/mm3 12/14/18 06:00 0.0 K/mm3 12/14/18 06:00 Blast Cells # 0.0 K/mm3 12/14/18 06:00 WBC Morphology Not Reportable 12/14/18 06:00 Hypersegmented Neuts Not Reportable 12/14/18 06:00 Hyposegmented Neuts Not Reportable 12/14/18 06:00 Hypogranular Neuts Not Reportable 12/14/18 06:00 Not Reportable 12/14/18 06:00 Not Reportable 12/14/18 06:00 Not Reportable 12/14/18 06:00 Not Reportable 12/14/18 06:00 Not Reportable 12/14/18 06:00 Not Reportable 12/14/18 06:00 Consistent w auto 12/14/18 06:00 Not Reportable 12/14/18 06:00 Plt Clumps, EDTA Not Reportable 12/14/18 06:00 Not Reportable 12/14/18 06:00 Not Reportable 12/14/18 06:00 Not Reportable 12/14/18 06:00 Plt Morphology Comment Not Reportable 12/14/18 06:00 RBC Morphology Not Reportable 12/14/18 06:00 Dimorphic RBCs Not Reportable 12/14/18 06:00 Few 12/14/18 06:00 Not Reportable 12/14/18 06:00 Not Reportable 12/14/18 06:00 1+ 12/14/18 06:00 Not Reportable 12/14/18 06:00 1+ 12/14/18 06:00 Not Reportable 12/14/18 06:00 Not Reportable 12/14/18 06:00 Not Reportable 12/14/18 06:00 Not Reportable 12/14/18 06:00 Few 12/14/18 06:00 Not Reportable 12/14/18 06:00 Not Reportable 12/14/18 06:00 Not Reportable 12/14/18 06:00 Not Reportable 12/14/18 06:00 Not Reportable 12/14/18 06:00 Not Reportable 12/14/18 06:00 Not Reportable 12/14/18 06:00 Not Reportable 12/14/18 06:00 Acanthocytes (Spur) Not Reportable 12/14/18 06:00 Rouleaux Not Reportable 12/14/18 06:00 Not Reportable 12/14/18 06:00 Not Reportable 12/14/18 06:00 Not Reportable 12/14/18 06:00 Not Reportable 12/14/18 06:00 Hem Pathologist Commnt No 12/14/18 06:00 PT 13.5 Sec. (12.2-14.9) 12/14/18 06:45 INR 1.06 (0.87-1.13) 12/14/18 06:45 APTT 22.8 Sec. (24.2-36.6) L 12/14/18 06:45 POC ABG pH 7.324 (7.35-7.45) L 12/18/18 15:03 ABG pH 7.403 pH Units (7.350-7.450) 12/19/18 12:30 ABG pCO2 68.3 mm Hg 12/19/18 12:30 POC ABG pO2 51 (80-105) L 12/18/18 15:03 ABG pO2 45.5 mm Hg (80.0-90.0) L 12/19/18 12:30 POC ABG HCO3 43.3 (22-26 mml/L) 12/18/18 15:03 ABG HCO3 41.6 mmol/L (20.0-26.0) H 12/19/18 12:30 POC ABG Total CO2 46 (23-27mmol/L) 12/18/18 15:03 POC ABG O2 Sat 80 12/18/18 15:03 ABG O2 Saturation 81.0 % (95.0-99.0) L 12/19/18 12:30 ABG O2 Content 15.1 (0.0-44) 12/19/18 12:30 POC ABG Base Excess 17 ((-2) - (+3)mmol/L) 12/18/18 15:03 ABG Base Excess 13.6 mmol/L (-2.0-3.0) H 12/19/18 12:30 ABG Hemoglobin 13.7 gm/dl (12.0-16.0) 12/19/18 12:30 ABG Carboxyhemoglobin 2.2 % (0.0-5.0) 12/19/18 12:30 ABG Methemoglobin 0.6 % (0.0-1.5) 12/19/18 12:30 78.6 % (95.0-99.0) L 12/19/18 12:30 32 % 12/19/18 12:30 Sodium 138 mmol/L (137-145) 12/18/18 05:37 Potassium 5.9 mmol/L (3.6-5.0) H 12/18/18 05:37 Chloride 97.3 mmol/L (98-107) L 12/18/18 05:37 Carbon Dioxide 33 mmol/L (22-30) H 12/18/18 05:37 14 mmol/L 12/18/18 05:37 BUN 24 mg/dL (7-17) H 12/18/18 05:37 0.8 mg/dL (0.7-1.2) 12/18/18 05:37 Estimated GFR > 60 ml/min 12/18/18 05:37 30 % 12/18/18 05:37 Glucose 259 mg/dL (65-100) H 12/18/18 05:37 POC Glucose 245 (70-105) H 12/19/18 16:13 Lactic Acid 2.20 mmol/L (0.7-2.0) H* 12/14/18 09:52 Calcium 8.7 mg/dL (8.4-10.2) 12/18/18 05:37 Magnesium 2.80 mg/dL (1.7-2.3) H 12/18/18 05:37 0.20 mg/dL (0.1-1.2) 12/16/18 05:59 AST 33 units/L (5-40) 12/16/18 05:59 ALT 87 units/L (7-56) H 12/16/18 05:59 58 units/L (35-129) 12/16/18 05:59 86.0 umol/L (25-60) H 12/14/18 06:45 0.178 ng/mL (0.00-0.029) H* 12/14/18 06:00 6.0 g/dL (6.3-8.2) L 12/16/18 05:59 3.2 g/dL (3.9-5) L 12/16/18 05:59 1.1 % 12/16/18 05:59 Triglycerides 100 mg/dL (2-149) 12/14/18 06:00 Cholesterol 169 mg/dL (50-199) 12/14/18 06:00 84 mg/dL (50-130) 12/14/18 06:00 82 mg/dL (40-59) H 12/14/18 06:00 2.06 % 12/14/18 06:00 TSH 6.220 mlU/mL (0.270-4.200) H 12/14/18 06:00 Free T4 0.77 ng/dL (0.76-1.46) 12/14/18 07:46 Yellow (Yellow) 12/14/18 12:58 Slightly-cloudy (Clear) 12/14/18 12:58 5.0 (5.0-7.0) 12/14/18 12:58 Ur Specific Doyle 1.018 (1.003-1.030) 12/14/18 12:58 >2000 mg dl mg/dL (Negative) 12/14/18 12:58 >=500 mg/dL (Negative) 12/14/18 12:58 Neg mg/dL (Negative) 12/14/18 12:58 Neg (Negative) 12/14/18 12:58 Neg (Negative) 12/14/18 12:58 Neg (Negative) 12/14/18 12:58 < 2.0 mg/dL (<2.0) 12/14/18 12:58 Ur Leukocyte Esterase Neg (Negative) 12/14/18 12:58 4.0 /HPF (0.0-6.0) 12/14/18 12:58 2.0 /HPF (0.0-6.0) 12/14/18 12:58 U Epithel Cells (Auto) 1.0 /HPF (0-13.0) 12/14/18 12:58 Few /HPF 12/14/18 12:58 Salicylates < 0.3 mg/dL (2.8-20.0) L 12/14/18 06:00 Presumptive negative 12/14/18 12:58 Presumptive negative 12/14/18 12:58 Acetaminophen < 5.0 ug/mL (10.0-30.0) L 12/14/18 06:00 Ur Barbiturates Screen Presumptive negative 12/14/18 12:58 Ur Phencyclidine Scrn Presumptive negative 12/14/18 12:58 Ur Amphetamines Screen Presumptive negative 12/14/18 12:58 U Benzodiazepines Scrn Presumptive negative 12/14/18 12:58 Presumptive negative 12/14/18 12:58 U Marijuana (THC) Screen Presumptive negative 12/14/18 12:58 Disclamer 12/14/18 12:58 Plasma/Serum Alcohol < 0.01 % (0-0.07) 12/14/18 06:00 - Imaging and Cardiology Chest x-ray: image reviewed Active Medications - Current Medications Current Medications: Generic Name Dose Route Start Last Admin Trade Name Freq PRN Reason Stop Dose Admin Acetaminophen 325 mg 12/14/18 16:54 12/19/18 09:10 Tylenol PO 325 mg Q6H PRN Administration Pain, Mild (1-3) Acetaminophen/Hydrocodone Bitart 1 each 12/14/18 17:00 12/19/18 15:53 [place] 10/325 PO 1 each Q4H PRN Administration Pain , Severe (7-10) Albuterol 2.5 mg 12/14/18 16:54 Proventil IH Q3HRT PRN Shortness Of Breath Albuterol/Ipratropium 1 ampul 12/14/18 20:00 12/19/18 13:47 Duoneb *Not For Prn Use* IH 1 ampul Q6HRT JOE Administration Aspirin 325 mg 12/15/18 10:00 12/19/18 09:11 Ecotrin PO 325 mg DAILY JOE Administration Atorvastatin Calcium 40 mg 12/14/18 22:00 12/18/18 22:41 Lipitor PO 40 mg QHS JOE Administration Budesonide 0.5 mg 12/14/18 20:00 12/19/18 07:41 Pulmicort IH 0.5 mg Q12HRT JOE Administration Bupropion HCl 100 mg 12/14/18 18:00 12/19/18 09:11 Wellbutrin Sr PO 100 mg DAILY JOE Administration Carbamazepine 200 mg 12/14/18 18:00 12/19/18 09:11 Tegretol PO 200 mg DAILY JOE Administration Carvedilol 6.25 mg 12/14/18 22:00 12/19/18 09:08 Coreg PO 6.25 mg BID JOE Administration Dextrose 50 ml 12/15/18 23:06 D50w (25gm) Syringe IV PRN PRN Hypoglycemia Famotidine 20 mg 12/14/18 18:00 12/19/18 09:11 Pepcid PO 20 mg DAILY JOE Administration Fluticasone Propionate 50 mcg 12/14/18 22:00 12/19/18 09:21 Flonase NS 50 mcg BID JOE Administration Furosemide 20 mg 12/14/18 18:00 12/19/18 05:01 Lasix PO 20 mg DAILY@0600 JOE Administration Hydralazine HCl 37.5 mg 12/14/18 17:00 12/19/18 18:13 Apresoline PO 37.5 mg Q8H JOE Administration Ceftriaxone Sodium 2 gm in 100 mls @ 200 mls/hr 12/14/18 19:30 12/18/18 22:14 Rocephin/Ns 2 Gm/100 Ml IV 200 mls/hr Q24H JOE Administration Protocol Azithromycin 500 mg/ Sodium 250 mls @ 250 mls/hr 12/14/18 20:00 12/19/18 09:25 Chloride IV 250 mls/hr Q24HR JOE Administration Protocol Insulin Glargine 30 units 12/19/18 22:00 Lantus SUB-Q QHS JOE Insulin Human Lispro 0 unit 12/16/18 00:00 12/19/18 17:08 Humalog SUB-Q 3 unit ACHS JOE Administration Protocol Insulin Human Lispro 5 unit 12/17/18 16:30 12/19/18 17:09 Humalog SUB-Q 5 unit AC JOE Administration Isosorbide Dinitrate 20 mg 12/14/18 17:00 12/19/18 18:14 Isordil Titradose PO 20 mg Q8H JOE Administration Loratadine 10 mg 12/14/18 18:00 12/19/18 09:11 Claritin PO 10 mg DAILY JOE Administration Lorazepam 0.5 mg 12/14/18 18:00 12/19/18 09:10 Ativan PO 0.5 mg DAILY JOE Administration Losartan Potassium 50 mg 12/14/18 18:00 12/19/18 09:09 Cozaar PO 50 mg QDAY JOE Administration Methylprednisolone Sodium Succinate 40 mg 12/18/18 22:00 12/19/18 15:51 Solu-Medrol IV 40 mg Q8H JOE Administration Montelukast Sodium 10 mg 12/14/18 18:00 12/19/18 18:14 Singulair PO 10 mg QPM JOE Administration Polyethylene Glycol 17 gm 12/14/18 17:00 Miralax 3350 PO QDAY PRN Constipation Quetiapine Fumarate 300 mg 12/19/18 22:00 Seroquel PO BID JOE Senna 17.2 mg 12/14/18 22:00 12/18/18 22:40 Senokot PO 17.2 mg HS JOE Administration Sorbitol 30 ml 12/14/18 18:00 12/19/18 18:14 Sorbitol 70% PO 30 ml Q12H JOE Administration Spironolactone 25 mg 12/15/18 10:00 12/19/18 09:10 Aldactone PO 25 mg QDAY JOE Administration Trazodone HCl 50 mg 12/14/18 22:00 12/18/18 22:39 Desyrel PO 50 mg QHS JOE Administration Nutrition/Malnutrition Assess - Dietary Evaluation Nutrition/Malnutrition Findings: Nutrition Notes Start: 12/18/18 14:51 Freq: Status: Active Protocol: Document 12/18/18 14:51 RM (Rec: 12/18/18 14:56 RM [email or web address]) Nutrition Notes Initial or Follow up Brief Note Current Diagnosis Acute Kidney Injury,COPD, Diabetes,Hypertension,Heart Failure,Hyperlipidemia Other Pertinent Diagnosis End stage lung dz, Schizophrenia, Depressive disorder, Dementia Current Diet Cardiac/Consistent CHO Subjective/Other Information Kitchen staff notified short story writer that pt is requesting more food. Pt stated that she eats all of her meals and is hungry afterwards. Operating Room Surgical Technologist explained that amount of food provided is d/t pt's health issuses but agreed to provide double protein portions. Nutrition Intervention Revisit per MD consult or patient Sign Off request:
[2018-12-19] MEDS: ROCEPHIN/NS 2 GM/100 ML 2 GM/100 ML BAG IV SCH (19:54)
[2018-12-19] MEDS: DESYREL PO SCH (22:10)
[2018-12-19] MEDS: SENOKOT PO SCH (22:10)
[2018-12-19] MEDS: LANTUS SUB-Q SCH (22:12)
[2018-12-20] MEDS: ISORDIL TITRADOSE PO SCH ×3 (01:00→14:25)
[2018-12-20] MEDS: APRESOLINE PO SCH ×3 (01:00→14:26)
[2018-12-20] MEDS: DUONEB *Not for PRN Use IH SCH ×4 (02:00→19:57)
[2018-12-20] MEDS: LASIX PO SCH (05:50)
[2018-12-20] MEDS: SOLU-Medrol IV SCH ×2 (05:50→14:25)
[2018-12-20] MEDS: SORBITOL 70% PO SCH ×2 (05:53→18:24)
[2018-12-20] MEDS: PULMICORT IH SCH ×2 (07:46→19:57)
[2018-12-20 07:52] LABS: Basophils % (Auto) 0.5 % (0.0-1.8); Eosinophils % (Auto) 0.4 % (0.0-4.3); Hematocrit 42.9 % (30.3-42.9); Hemoglobin 13.8 gm/dl (10.1-14.3); Lymphocytes # (Auto) 1.5 K/mm3 (1.2-5.4); Mean Corpuscular HGB Conc 32 % (30-34); Mean Corpuscular Volume 98 fl (79-97); Monocytes # (Auto) 0.9 K/mm3 (0.0-0.8); Monocytes % (Auto) 12.2 % (0.0-7.3); Platelet Count 126 K/mm3 (140-440); Red Blood Count 4.38 M/mm3 (3.65-5.03); Red Cell Distribution Width 16.2 % (13.2-15.2)
[2018-12-20 08:09] LABS: BUN/Creatinine Ratio 29; Blood Urea Nitrogen 26 mg/dL (7-17); Hemolysis Index 12
[2018-12-20] MEDS: HumaLOG SUB-Q SCH ×7 (09:22→21:26)
[2018-12-20] MEDS: FLONASE NS SCH ×2 (09:24→21:27)
[2018-12-20] MEDS: ECOTRIN PO SCH (09:25)
[2018-12-20] MEDS: COZAAR PO SCH (09:25)
[2018-12-20] MEDS: WELLBUTRIN SR PO SCH (09:25)
[2018-12-20] MEDS: COREG PO SCH ×2 (09:26→21:29)
[2018-12-20] MEDS: ALDACTONE PO SCH (09:26)
[2018-12-20] MEDS: PEPCID PO SCH (09:27)
[2018-12-20] MEDS: CLARITIN PO SCH (09:27)
[2018-12-20] MEDS: ATIVAN PO SCH (09:44)
[2018-12-20] MEDS: ZITHROMAX 500 MG in NACL 0.9% 250ML 250 ML IV SCH (09:44)
--- NOTE | 2018-12-20 13:12 | Progress Note ---
Assessment and Plan Assessment and plan: Patient is 48-year-old morbidly obese woman with a myraid of medical problems including COPD, obesity, hypoventilation, obstructive sleep apnea, bipolar disorder, congestive heart failure was admitted through emergency room with acute on chronic hypoxic hypercapnic respiratory failure Requiring BiPAP and CPAP, --Acute on chronic hypoxic, hypercapnic respiratory failure; Secondary to acute exacerbation of COPD ,Oxygen titrate O2 sats to more than 90%, BiPAP as needed, If no improvement intubate as needed. --Acute exacerbation of COPD; Oxygen, nebulizers, tapering doses of IV steroids, IV antibiotics Inhalation steroids, pulmonary consult if needed --Hypertension; moderate control Continue current antihypertensives and when necessary medications --Acute kidney injury; vasomotor nephropathy, closely monitor renal function Avoid nephrotoxins, nephrology consult if no improvement --Hyperkalemia: Kayexalate,monitor K levels --History of congestive heart failure; EF 40-45% in April 2018 Continue diuretics, beta blockers, alo inhibitors Input-output monitoring, low sodium diet, cardiology evaluation if needed --Type 2 diabetes mellitus; uncontrolled on insulin, A1c 10.4[6 months ago] Accu-Chek sliding scale coverage and ADA diet insulin as needed Diabetic education, nutrition consult if needed --Dyslipidemia; continue statin, low-cholesterol diet --Morbid obesity; BMI 53 Patient would benefit by bariatric surgical weight reduction program When medically stable, outpatient evaluation at discharge --Nonspecific elevation of troponins; probably NSTEMI type2 She denies chest pain, closely monitor --Lactic acidosis; supportive care -Functional quadriplegia, poa consult PT --DVT prophylaxis; Lovenox --Full CODE STATUS --DC planning with case management Disposition; discharged back to [facility] when medically stable, today she was hypoxic CCT 32 minutes History Interval history: Patient was seen and examined. Follow-up on current diagnosis of SOB. No overnight events reported to me. Patient denies any chest pain, nausea/vomiting or severe headaches. Imaging, nursing note, chart, labs and old chart reviewed. Discussed with patient. She was transition to Nasal canula, pulse ox dropped briefly to 79%, she started yelling out, my O2 is off. Respiratory therapist at bedside immediately to re-establish VM with good results. Hospitalist Physical - Physical exam Narrative exam: Gen: chronic ill appearing, bmi 53, moderate increase accessory muscles, Awake, Alert, Orientated HEENT: NCAT, EOMI, PERRL, OP Clear Neck: supple, no adenopathy, no thyromegaly, no JVD CVS/Heart: RRR, normal S1S2, pulses present bilaterally Chest/Lungs: diminished bd bilateral, Symmetrical chest expansion, good air entry bilaterally GI/Abdomen: soft, NTND, good bowel sounds, no guarding or rebound /Bladder: no suprapubic tenderness, no CVA or paraspinal tenderness Extermity/Skin: no c/c/e, no obvious rash MSK: FROM x 4 Neuro: CN 2-12 grossly intact, no new focal deficits Psych: calm - Constitutional Vitals: Temp Pulse Resp BP Pulse Ox 99.0 F 94 H 24 145/89 94 12/20/18 12:12 12/20/18 12:12 12/20/18 12:12 12/20/18 12:12 12/20/18 12:12 General appearance: Present: mild distress, well-nourished, obese (morbidly obese) Results - Labs CBC & Chem 7: 12/20/18 07:09 12/20/18 07:09 Labs: Laboratory Last Values WBC 7.4 K/mm3 (4.5-11.0) 12/20/18 07:09 RBC 4.38 M/mm3 (3.65-5.03) 12/20/18 07:09 Hgb 13.8 gm/dl (10.1-14.3) 12/20/18 07:09 Hct 42.9 % (30.3-42.9) 12/20/18 07:09 MCV 98 fl (79-97) H 12/20/18 07:09 MCH 31 pg (28-32) 12/20/18 07:09 MCHC 32 % (30-34) 12/20/18 07:09 RDW 16.2 % (13.2-15.2) H 12/20/18 07:09 Plt Count 126 K/mm3 (140-440) L 12/20/18 07:09 Lymph % (Auto) 21.0 % (13.4-35.0) 12/20/18 07:09 [place] % (Auto) 12.2 % (0.0-7.3) H 12/20/18 07:09 Eos % (Auto) 0.4 % (0.0-4.3) 12/20/18 07:09 Baso % (Auto) 0.5 % (0.0-1.8) 12/20/18 07:09 Lymph # 1.5 K/mm3 (1.2-5.4) 12/20/18 07:09 [place] # 0.9 K/mm3 (0.0-0.8) H 12/20/18 07:09 Eos # 0.0 K/mm3 (0.0-0.4) 12/20/18 07:09 Baso # 0.0 K/mm3 (0.0-0.1) 12/20/18 07:09 Add Manual Diff Complete 12/14/18 06:00 Total Counted 100 12/14/18 06:00 Seg Neutrophils % 65.9 % (40.0-70.0) 12/20/18 07:09 Seg Neuts % (Manual) 87.0 % (40.0-70.0) H 12/14/18 06:00 1.0 % 12/14/18 06:00 2.0 % (13.4-35.0) L 12/14/18 06:00 Reactive Lymphs % (Man) 0 % 12/14/18 06:00 10.0 % (0.0-7.3) H 12/14/18 06:00 0 % (0.0-4.3) 12/14/18 06:00 0 % (0.0-1.8) 12/14/18 06:00 0 % 12/14/18 06:00 0 % 12/14/18 06:00 0 % 12/14/18 06:00 0 % 12/14/18 06:00 Nucleated RBC % 3.0 % (0.0-0.9) H 12/14/18 06:00 Seg Neutrophils # 4.9 K/mm3 (1.8-7.7) 12/20/18 07:09 Seg Neutrophils # Man 13.2 K/mm3 (1.8-7.7) H 12/14/18 06:00 Band Neutrophils # 0.2 K/mm3 12/14/18 06:00 0.3 K/mm3 (1.2-5.4) L 12/14/18 06:00 Abs React Lymphs (Man) 0.0 K/mm3 12/14/18 06:00 1.5 K/mm3 (0.0-0.8) H 12/14/18 06:00 0.0 K/mm3 (0.0-0.4) 12/14/18 06:00 0.0 K/mm3 (0.0-0.1) 12/14/18 06:00 0.0 K/mm3 12/14/18 06:00 0.0 K/mm3 12/14/18 06:00 0.0 K/mm3 12/14/18 06:00 Blast Cells # 0.0 K/mm3 12/14/18 06:00 WBC Morphology Not Reportable 12/14/18 06:00 Hypersegmented Neuts Not Reportable 12/14/18 06:00 Hyposegmented Neuts Not Reportable 12/14/18 06:00 Hypogranular Neuts Not Reportable 12/14/18 06:00 Not Reportable 12/14/18 06:00 Not Reportable 12/14/18 06:00 Not Reportable 12/14/18 06:00 Not Reportable 12/14/18 06:00 Not Reportable 12/14/18 06:00 Not Reportable 12/14/18 06:00 Consistent w auto 12/14/18 06:00 Not Reportable 12/14/18 06:00 Plt Clumps, EDTA Not Reportable 12/14/18 06:00 Not Reportable 12/14/18 06:00 Not Reportable 12/14/18 06:00 Not Reportable 12/14/18 06:00 Plt Morphology Comment Not Reportable 12/14/18 06:00 RBC Morphology Not Reportable 12/14/18 06:00 Dimorphic RBCs Not Reportable 12/14/18 06:00 Few 12/14/18 06:00 Not Reportable 12/14/18 06:00 Not Reportable 12/14/18 06:00 1+ 12/14/18 06:00 Not Reportable 12/14/18 06:00 1+ 12/14/18 06:00 Not Reportable 12/14/18 06:00 Not Reportable 12/14/18 06:00 Not Reportable 12/14/18 06:00 Not Reportable 12/14/18 06:00 Few 12/14/18 06:00 Not Reportable 12/14/18 06:00 Not Reportable 12/14/18 06:00 Not Reportable 12/14/18 06:00 Not Reportable 12/14/18 06:00 Not Reportable 12/14/18 06:00 Not Reportable 12/14/18 06:00 Not Reportable 12/14/18 06:00 Not Reportable 12/14/18 06:00 Acanthocytes (Spur) Not Reportable 12/14/18 06:00 Rouleaux Not Reportable 12/14/18 06:00 Not Reportable 12/14/18 06:00 Not Reportable 12/14/18 06:00 Not Reportable 12/14/18 06:00 Not Reportable 12/14/18 06:00 Hem Pathologist Commnt No 12/14/18 06:00 PT 13.5 Sec. (12.2-14.9) 12/14/18 06:45 INR 1.06 (0.87-1.13) 12/14/18 06:45 APTT 22.8 Sec. (24.2-36.6) L 12/14/18 06:45 POC ABG pH 7.324 (7.35-7.45) L 12/18/18 15:03 ABG pH 7.403 pH Units (7.350-7.450) 12/19/18 12:30 ABG pCO2 68.3 mm Hg 12/19/18 12:30 POC ABG pO2 51 (80-105) L 12/18/18 15:03 ABG pO2 45.5 mm Hg (80.0-90.0) L 12/19/18 12:30 POC ABG HCO3 43.3 (22-26 mml/L) 12/18/18 15:03 ABG HCO3 41.6 mmol/L (20.0-26.0) H 12/19/18 12:30 POC ABG Total CO2 46 (23-27mmol/L) 12/18/18 15:03 POC ABG O2 Sat 80 12/18/18 15:03 ABG O2 Saturation 81.0 % (95.0-99.0) L 12/19/18 12:30 ABG O2 Content 15.1 (0.0-44) 12/19/18 12:30 POC ABG Base Excess 17 ((-2) - (+3)mmol/L) 12/18/18 15:03 ABG Base Excess 13.6 mmol/L (-2.0-3.0) H 12/19/18 12:30 ABG Hemoglobin 13.7 gm/dl (12.0-16.0) 12/19/18 12:30 ABG Carboxyhemoglobin 2.2 % (0.0-5.0) 12/19/18 12:30 ABG Methemoglobin 0.6 % (0.0-1.5) 12/19/18 12:30 78.6 % (95.0-99.0) L 12/19/18 12:30 32 % 12/19/18 12:30 Sodium 144 mmol/L (137-145) 12/20/18 07:09 Potassium 5.1 mmol/L (3.6-5.0) H 12/20/18 07:09 Chloride 96.5 mmol/L (98-107) L 12/20/18 07:09 Carbon Dioxide 38 mmol/L (22-30) H 12/20/18 07:09 15 mmol/L 12/20/18 07:09 BUN 26 mg/dL (7-17) H 12/20/18 07:09 0.9 mg/dL (0.7-1.2) 12/20/18 07:09 Estimated GFR > 60 ml/min 12/20/18 07:09 29 % 12/20/18 07:09 Glucose 248 mg/dL (65-100) H 12/20/18 07:09 POC Glucose 253 (70-105) H 12/20/18 11:43 Lactic Acid 2.20 mmol/L (0.7-2.0) H* 12/14/18 09:52 Calcium 9.0 mg/dL (8.4-10.2) 12/20/18 07:09 Magnesium 2.80 mg/dL (1.7-2.3) H 12/18/18 05:37 0.20 mg/dL (0.1-1.2) 12/16/18 05:59 AST 33 units/L (5-40) 12/16/18 05:59 ALT 87 units/L (7-56) H 12/16/18 05:59 58 units/L (35-129) 12/16/18 05:59 86.0 umol/L (25-60) H 12/14/18 06:45 0.178 ng/mL (0.00-0.029) H* 12/14/18 06:00 6.0 g/dL (6.3-8.2) L 12/16/18 05:59 3.2 g/dL (3.9-5) L 12/16/18 05:59 1.1 % 12/16/18 05:59 Triglycerides 100 mg/dL (2-149) 12/14/18 06:00 Cholesterol 169 mg/dL (50-199) 12/14/18 06:00 84 mg/dL (50-130) 12/14/18 06:00 82 mg/dL (40-59) H 12/14/18 06:00 2.06 % 12/14/18 06:00 TSH 6.220 mlU/mL (0.270-4.200) H 12/14/18 06:00 Free T4 0.77 ng/dL (0.76-1.46) 12/14/18 07:46 Yellow (Yellow) 12/14/18 12:58 Slightly-cloudy (Clear) 12/14/18 12:58 5.0 (5.0-7.0) 12/14/18 12:58 Ur Specific [place] 1.018 (1.003-1.030) 12/14/18 12:58 >2000 mg dl mg/dL (Negative) 12/14/18 12:58 >=500 mg/dL (Negative) 12/14/18 12:58 Neg mg/dL (Negative) 12/14/18 12:58 Neg (Negative) 12/14/18 12:58 Neg (Negative) 12/14/18 12:58 Neg (Negative) 12/14/18 12:58 < 2.0 mg/dL (<2.0) 12/14/18 12:58 Ur Leukocyte Esterase Neg (Negative) 12/14/18 12:58 4.0 /HPF (0.0-6.0) 12/14/18 12:58 2.0 /HPF (0.0-6.0) 12/14/18 12:58 U Epithel Cells (Auto) 1.0 /HPF (0-13.0) 12/14/18 12:58 Few /HPF 12/14/18 12:58 Salicylates < 0.3 mg/dL (2.8-20.0) L 12/14/18 06:00 Presumptive negative 12/14/18 12:58 Presumptive negative 12/14/18 12:58 Acetaminophen < 5.0 ug/mL (10.0-30.0) L 12/14/18 06:00 Ur Barbiturates Screen Presumptive negative 12/14/18 12:58 Ur Phencyclidine Scrn Presumptive negative 12/14/18 12:58 Ur Amphetamines Screen Presumptive negative 12/14/18 12:58 U Benzodiazepines Scrn Presumptive negative 12/14/18 12:58 Presumptive negative 12/14/18 12:58 U Marijuana (THC) Screen Presumptive negative 12/14/18 12:58 Disclamer 12/14/18 12:58 Plasma/Serum Alcohol < 0.01 % (0-0.07) 12/14/18 06:00 Active Medications - Current Medications Current Medications: Generic Name Dose Route Start Last Admin Trade Name Freq PRN Reason Stop Dose Admin Acetaminophen 325 mg 12/14/18 16:54 12/19/18 09:10 Tylenol PO 325 mg Q6H PRN Administration Pain, Mild (1-3) Acetaminophen/Hydrocodone Bitart 1 each 12/14/18 17:00 12/19/18 15:53 [place] 10/325 PO 1 each Q4H PRN Administration Pain , Severe (7-10) Albuterol 2.5 mg 12/14/18 16:54 12/20/18 09:15 Proventil IH 2.5 mg Q3HRT PRN Administration Shortness Of Breath Albuterol/Ipratropium 1 ampul 12/14/18 20:00 12/20/18 07:46 Duoneb *Not For Prn Use* IH 1 ampul Q6HRT JOE Administration Aspirin 325 mg 12/15/18 10:00 12/20/18 09:25 Ecotrin PO 325 mg DAILY JOE Administration Atorvastatin Calcium 40 mg 12/14/18 22:00 12/19/18 22:10 Lipitor PO 40 mg QHS JOE Administration Budesonide 0.5 mg 12/14/18 20:00 12/20/18 07:46 Pulmicort IH 0.5 mg Q12HRT JOE Administration Bupropion HCl 100 mg 12/14/18 18:00 12/20/18 09:25 Wellbutrin Sr PO Not Given DAILY JOE Carbamazepine 200 mg 12/14/18 18:00 12/20/18 09:26 Tegretol PO 200 mg DAILY JOE Administration Carvedilol 6.25 mg 12/14/18 22:00 12/20/18 09:26 Coreg PO 6.25 mg BID JOE Administration Dextrose 50 ml 12/15/18 23:06 D50w (25gm) Syringe IV PRN PRN Hypoglycemia Famotidine 20 mg 12/14/18 18:00 12/20/18 09:27 Pepcid PO 20 mg DAILY JOE Administration Fluticasone Propionate 50 mcg 12/14/18 22:00 12/20/18 09:24 Flonase NS 50 mcg BID JOE Administration Furosemide 20 mg 12/14/18 18:00 12/20/18 05:50 Lasix PO 20 mg DAILY@0600 JOE Administration Hydralazine HCl 37.5 mg 12/14/18 17:00 12/20/18 06:30 Apresoline PO 37.5 mg Q8H JOE Administration Ceftriaxone Sodium 2 gm in 100 mls @ 200 mls/hr 12/14/18 19:30 12/19/18 19:54 Rocephin/Ns 2 Gm/100 Ml IV 200 mls/hr Q24H JOE Administration Protocol Azithromycin 500 mg/ Sodium 250 mls @ 250 mls/hr 12/14/18 20:00 12/20/18 09:44 Chloride IV 250 mls/hr Q24HR JOE Administration Protocol Insulin Glargine 30 units 12/19/18 22:00 12/19/18 22:12 Lantus SUB-Q 30 units QHS JOE Administration Insulin Human Lispro 0 unit 12/16/18 00:00 12/20/18 09:22 Humalog SUB-Q 3 unit ACHS JOE Administration Protocol Insulin Human Lispro 5 unit 12/17/18 16:30 12/20/18 09:23 Humalog SUB-Q 5 unit AC JOE Administration Isosorbide Dinitrate 20 mg 12/14/18 17:00 12/20/18 06:31 Isordil Titradose PO 20 mg Q8H JOE Administration Loratadine 10 mg 12/14/18 18:00 12/20/18 09:27 Claritin PO 10 mg DAILY JOE Administration Lorazepam 0.5 mg 12/14/18 18:00 12/20/18 09:44 Ativan PO 0.5 mg DAILY JOE Administration Losartan Potassium 50 mg 12/14/18 18:00 12/20/18 09:25 Cozaar PO 50 mg QDAY JOE Administration Methylprednisolone Sodium Succinate 40 mg 12/18/18 22:00 12/20/18 05:50 Solu-Medrol IV 40 mg Q8H JOE Administration Montelukast Sodium 10 mg 12/14/18 18:00 12/19/18 18:14 Singulair PO 10 mg QPM JOE Administration Polyethylene Glycol 17 gm 12/14/18 17:00 Miralax 3350 PO QDAY PRN Constipation Quetiapine Fumarate 300 mg 12/19/18 22:00 12/20/18 09:26 Seroquel PO 300 mg BID JOE Administration Senna 17.2 mg 12/14/18 22:00 12/19/18 22:10 Senokot PO 17.2 mg HS JOE Administration Sorbitol 30 ml 12/14/18 18:00 12/20/18 05:53 Sorbitol 70% PO 30 ml Q12H JOE Administration Spironolactone 25 mg 12/15/18 10:00 12/20/18 09:26 Aldactone PO 25 mg QDAY JOE Administration Trazodone HCl 50 mg 12/14/18 22:00 12/19/18 22:10 Desyrel PO 50 mg QHS JOE Administration Nutrition/Malnutrition Assess - Dietary Evaluation Nutrition/Malnutrition Findings: Nutrition Notes Start: 12/18/18 14:51 Freq: Status: Active Protocol: Document 12/18/18 14:51 RM (Rec: 12/18/18 14:56 RM [id number]) Nutrition Notes Initial or Follow up Brief Note Current Diagnosis Acute Kidney Injury,COPD, Diabetes,Hypertension,Heart Failure,Hyperlipidemia Other Pertinent Diagnosis End stage lung dz, Schizophrenia, Depressive disorder, Dementia Current Diet Cardiac/Consistent CHO Subjective/Other Information Kitchen staff notified proposal manager writer that pt is requesting more food. Pt stated that she eats all of her meals and is hungry afterwards. Piping Design Specialist explained that amount of food provided is d/t pt's health issuses but agreed to provide double protein portions. Nutrition Intervention Revisit per MD consult or patient Sign Off request:
[2018-12-20] MEDS ORDERED: APRESOLINE IV PRN (14:26)
[2018-12-20] MEDS: NORCO 10/325 PO PRN ×2 (14:39→19:08)
--- NOTE | 2018-12-20 15:43 | Progress Note ---
Assessment and Plan Acute on chronic hypoxic, hypercapnic respiratory failure; Acute exacerbation of COPD; Hypertension; moderate control Acute kidney injury; vasomotor nephropathy History of congestive heart failure; EF 40-45% in April 2018 Type 2 diabetes mellitus; on insulin, A1c 10.4[6 months ago] Dyslipidemia Morbid obesity; BMI 54.9 Nonspecific elevation of troponin; probably type 2 h/o Psychiatric disorder Thrombocytopenia Continue all care as outlined below. Discussed with RN/RT CXR in the morning Oxygen restrictive strategies, wean down 50% venturi mask to oxygen via NC,O2 sats 88-90% acceptable Increase activity -NIPPV qhs and prn during the day -Avoid narcotics -VTE prophylaxis while monitoring platelet counts -Avoid nephrotoxic agents, adjust all medications for CrCL/GFR -Accuchecks with glycemic control, target blood glucose 140-180mg/dL -Monitor renal function -Bronchodilators, ICS -Heart failure measures -Lifestyle modifications, weight loss -Chronic home anti-schizophrenia medications. CONDITION: FAIR PROGNOSIS: FAIR CODE STATUS: FULL CODE Subjective Date of service: 12/20/18 Interval history: Patient is seen today for: acute and chronic hypercapnic-hypoxic respiratory failure; AE-COPD; Morbid obesity; sleep apnea; Seen and examined at bedside; 24hour events reviewed; nursing and respiratory care staff consulted; no adverse overnight events reported to me; Awake and alert. Vitals, labs,medications, chart reviewed. She denies any chest pain, no fevers or chills. No nausea, vomiting or diarrhea. "I feel much better." Tolerating NIPPV at night, with improvement in gas exchange and her mental status Episode this morning when her oxygen was off and she had acute desaturations. Objective - Exam Narrative Exam: Gen: chronic ill appearing, bmi 53, Awake, Alert, HEENT: NCAT, EOMI, PERRL, Hirsuitism Neck: supple, no adenopathy, no thyromegaly, no JVD , tracheostomy scar, short neck Mallampatti score 4/4 CVS/Heart: RRR, normal S1S2, pulses present bilaterally Chest/Lungs: diminished BS bilateral, Symmetrical chest expansion, no wheezing GI/Abdomen: obese, soft, NTND, good bowel sounds, no guarding or rebound /Bladder: no suprapubic tenderness Extermity/Skin: noclubbing, no cyanosis, no clubbing MSK: FROM x 4 Neuro: CN 2-12 grossly intact, no new focal deficits Psych: calm Vital Signs - 12hr 12/20/18 12/20/18 12/20/18 04:39 04:40 07:46 Temperature 97.9 F Pulse Rate 86 Pulse Rate [ 90 Anterior Bilateral Throughout] Respiratory 20 Rate Respiratory 22 Rate [Anterior Bilateral Throughout] Blood Pressure 151/90 O2 Sat by Pulse 97 92 Oximetry 12/20/18 12/20/18 12/20/18 08:14 09:11 09:15 Temperature 97.5 F L Pulse Rate 95 H Pulse Rate [ 94 H Anterior Bilateral Throughout] Respiratory 20 Rate Respiratory 22 Rate [Anterior Bilateral Throughout] Blood Pressure 172/99 179/102 O2 Sat by Pulse 85 95 Oximetry 12/20/18 12/20/18 12/20/18 09:25 09:26 12:12 Temperature 99.0 F Pulse Rate 95 H 95 H 94 H Pulse Rate [ Anterior Bilateral Throughout] Respiratory 24 Rate Respiratory Rate [Anterior Bilateral Throughout] Blood Pressure 172/99 172/99 145/89 O2 Sat by Pulse 94 Oximetry 12/20/18 12/20/18 12/20/18 13:34 14:25 14:26 Temperature Pulse Rate 94 H 94 H Pulse Rate [ 98 H Anterior Bilateral Throughout] Respiratory Rate Respiratory 24 Rate [Anterior Bilateral Throughout] Blood Pressure 145/89 145/89 O2 Sat by Pulse Oximetry CBC and BMP: 12/20/18 07:09 12/20/18 07:09 ABG, PT/INR, D-dimer: ABG POC ABG pH 7.324 (7.35-7.45) L 12/18/18 15:03 ABG pH 7.403 pH Units (7.350-7.450) 12/19/18 12:30 ABG pCO2 68.3 mm Hg 12/19/18 12:30 POC ABG pO2 51 (80-105) L 12/18/18 15:03 ABG pO2 45.5 mm Hg (80.0-90.0) L 12/19/18 12:30 POC ABG HCO3 43.3 (22-26 mml/L) 12/18/18 15:03 POC ABG Total CO2 46 (23-27mmol/L) 12/18/18 15:03 POC ABG O2 Sat 80 12/18/18 15:03 ABG O2 Saturation 81.0 % (95.0-99.0) L 12/19/18 12:30 PT/INR, D-dimer PT 13.5 Sec. (12.2-14.9) 12/14/18 06:45 INR 1.06 (0.87-1.13) 12/14/18 06:45 Abnormal lab findings: Abnormal Labs 12/14/18 12/14/18 12/14/18 06:00 06:00 06:00 WBC 15.2 H Hct 45.4 H MCV 101 H RDW 17.5 H Plt Count Lymph % (Auto) Moffat % (Auto) 9.6 H Lymph # Moffat # 1.5 H Seg Neutrophils % 77.0 H Seg Neuts % (Manual) 87.0 H Lymphocytes % (Manual) 2.0 L Monocytes % (Manual) 10.0 H Nucleated RBC % 3.0 H Seg Neutrophils # 11.7 H Seg Neutrophils # Man 13.2 H Lymphocytes # (Manual) 0.3 L Monocytes # (Manual) 1.5 H APTT POC ABG pH POC ABG pO2 ABG pO2 ABG HCO3 ABG O2 Saturation ABG Base Excess Oxyhemoglobin Sodium 135 L Potassium 5.4 H Chloride 90.4 L Carbon Dioxide 32 H BUN 21 H Creatinine 1.6 H Glucose 380 H POC Glucose Lactic Acid Magnesium AST 58 H ALT Ammonia Troponin T 0.178 H* Total Protein 5.8 L Albumin 3.5 L HDL Cholesterol 82 H TSH 6.220 H Salicylates Acetaminophen 12/14/18 12/14/18 12/14/18 06:00 06:00 06:03 WBC Hct MCV RDW Plt Count Lymph % (Auto) Moffat % (Auto) Lymph # Moffat # Seg Neutrophils % Seg Neuts % (Manual) Lymphocytes % (Manual) Monocytes % (Manual) Nucleated RBC % Seg Neutrophils # Seg Neutrophils # Man Lymphocytes # (Manual) Monocytes # (Manual) APTT POC ABG pH POC ABG pO2 ABG pO2 ABG HCO3 ABG O2 Saturation ABG Base Excess Oxyhemoglobin Sodium Potassium Chloride Carbon Dioxide BUN Creatinine Glucose POC Glucose 266 H Lactic Acid Magnesium AST ALT Ammonia Troponin T Total Protein Albumin HDL Cholesterol TSH Salicylates < 0.3 L Acetaminophen < 5.0 L 12/14/18 12/14/18 12/14/18 06:45 06:45 07:31 WBC Hct MCV RDW Plt Count Lymph % (Auto) [place] % (Auto) Lymph # Moffat # Seg Neutrophils % Seg Neuts % (Manual) Lymphocytes % (Manual) Monocytes % (Manual) Nucleated RBC % Seg Neutrophils # Seg Neutrophils # Man Lymphocytes # (Manual) Monocytes # (Manual) APTT 22.8 L POC ABG pH 7.153 L POC ABG pO2 122 H ABG pO2 ABG HCO3 ABG O2 Saturation ABG Base Excess Oxyhemoglobin Sodium Potassium Chloride Carbon Dioxide BUN Creatinine Glucose POC Glucose Lactic Acid Magnesium AST ALT Ammonia 86.0 H Troponin T Total Protein Albumin HDL Cholesterol TSH Salicylates Acetaminophen 12/14/18 12/14/18 12/14/18 07:46 09:52 09:57 WBC Hct MCV RDW Plt Count Lymph % (Auto) [place] % (Auto) Lymph # Moffat # Seg Neutrophils % Seg Neuts % (Manual) Lymphocytes % (Manual) Monocytes % (Manual) Nucleated RBC % Seg Neutrophils # Seg Neutrophils # Man Lymphocytes # (Manual) Monocytes # (Manual) APTT POC ABG pH 7.269 L POC ABG pO2 63 L ABG pO2 ABG HCO3 ABG O2 Saturation ABG Base Excess Oxyhemoglobin Sodium Potassium Chloride Carbon Dioxide BUN Creatinine Glucose POC Glucose Lactic Acid 2.40 H* 2.20 H* Magnesium AST ALT Ammonia Troponin T Total Protein Albumin HDL Cholesterol TSH Salicylates Acetaminophen 12/14/18 12/15/18 12/15/18 17:51 12:14 22:38 WBC Hct MCV RDW Plt Count Lymph % (Auto) [place]at % (Auto) Lymph # Moffat # Seg Neutrophils % Seg Neuts % (Manual) Lymphocytes % (Manual) Monocytes % (Manual) Nucleated RBC % Seg Neutrophils # Seg Neutrophils # Man Lymphocytes # (Manual) Monocytes # (Manual) APTT POC ABG pH 7.293 L POC ABG pO2 73 L ABG pO2 ABG HCO3 ABG O2 Saturation ABG Base Excess Oxyhemoglobin Sodium Potassium Chloride Carbon Dioxide BUN Creatinine Glucose POC Glucose 247 H 376 H Lactic Acid Magnesium AST ALT Ammonia Troponin T Total Protein Albumin HDL Cholesterol TSH Salicylates Acetaminophen 12/16/18 12/16/18 12/16/18 05:59 05:59 08:16 WBC Hct MCV 99 H RDW 16.6 H Plt Count 114 L Lymph % (Auto) 8.1 L Moffat % (Auto) Lymph # 0.7 L Moffat # Seg Neutrophils % 84.2 H Seg Neuts % (Manual) Lymphocytes % (Manual) Monocytes % (Manual) Nucleated RBC % Seg Neutrophils # Seg Neutrophils # Man Lymphocytes # (Manual) Monocytes # (Manual) APTT POC ABG pH POC ABG pO2 ABG pO2 ABG HCO3 ABG O2 Saturation ABG Base Excess Oxyhemoglobin Sodium Potassium 5.4 H Chloride 96.0 L Carbon Dioxide 40 H D BUN 27 H Creatinine Glucose 355 H POC Glucose 305 H Lactic Acid Magnesium AST ALT 87 H Ammonia Troponin T Total Protein 6.0 L Albumin 3.2 L HDL Cholesterol TSH Salicylates Acetaminophen 12/16/18 12/16/18 12/16/18 11:45 16:22 21:15 WBC Hct MCV RDW Plt Count Lymph % (Auto) Moffat % (Auto) Lymph # Moffat # Seg Neutrophils % Seg Neuts % (Manual) Lymphocytes % (Manual) Monocytes % (Manual) Nucleated RBC % Seg Neutrophils # Seg Neutrophils # Man Lymphocytes # (Manual) Monocytes # (Manual) APTT POC ABG pH POC ABG pO2 ABG pO2 ABG HCO3 ABG O2 Saturation ABG Base Excess Oxyhemoglobin Sodium Potassium Chloride Carbon Dioxide BUN Creatinine Glucose POC Glucose 361 H 265 H 254 H Lactic Acid Magnesium AST ALT Ammonia Troponin T Total Protein Albumin HDL Cholesterol TSH Salicylates Acetaminophen 12/17/18 12/17/18 12/17/18 08:43 12:03 16:58 WBC Hct MCV RDW Plt Count Lymph % (Auto) [place] % (Auto) Lymph # Moffat # Seg Neutrophils % Seg Neuts % (Manual) Lymphocytes % (Manual) Monocytes % (Manual) Nucleated RBC % Seg Neutrophils # Seg Neutrophils # Man Lymphocytes # (Manual) Monocytes # (Manual) APTT POC ABG pH POC ABG pO2 ABG pO2 ABG HCO3 ABG O2 Saturation ABG Base Excess Oxyhemoglobin Sodium Potassium 5.6 H Chloride 96.4 L Carbon Dioxide 38 H BUN 25 H Creatinine Glucose 266 H POC Glucose 265 H 343 H Lactic Acid Magnesium AST ALT Ammonia Troponin T Total Protein Albumin HDL Cholesterol TSH Salicylates Acetaminophen 12/17/18 12/17/18 12/18/18 17:16 21:47 05:37 WBC Hct MCV RDW Plt Count Lymph % (Auto) Moffat % (Auto) Lymph # Moffat # Seg Neutrophils % Seg Neuts % (Manual) Lymphocytes % (Manual) Monocytes % (Manual) Nucleated RBC % Seg Neutrophils # Seg Neutrophils # Man Lymphocytes # (Manual) Monocytes # (Manual) APTT POC ABG pH POC ABG pO2 ABG pO2 ABG HCO3 ABG O2 Saturation ABG Base Excess Oxyhemoglobin Sodium Potassium 5.9 H Chloride 97.3 L Carbon Dioxide 33 H BUN 24 H Creatinine Glucose 259 H POC Glucose 251 H 304 H Lactic Acid Magnesium 2.80 H AST ALT Ammonia Troponin T Total Protein Albumin HDL Cholesterol TSH Salicylates Acetaminophen 12/18/18 12/18/18 12/18/18 07:38 11:36 15:03 WBC Hct MCV RDW Plt Count Lymph % (Auto) [place] % (Auto) Lymph # Moffat # Seg Neutrophils % Seg Neuts % (Manual) Lymphocytes % (Manual) Monocytes % (Manual) Nucleated RBC % Seg Neutrophils # Seg Neutrophils # Man Lymphocytes # (Manual) Monocytes # (Manual) APTT POC ABG pH 7.324 L POC ABG pO2 51 L ABG pO2 ABG HCO3 ABG O2 Saturation ABG Base Excess Oxyhemoglobin Sodium Potassium Chloride Carbon Dioxide BUN Creatinine Glucose POC Glucose 288 H 326 H Lactic Acid Magnesium AST ALT Ammonia Troponin T Total Protein Albumin HDL Cholesterol TSH Salicylates Acetaminophen 12/18/18 12/18/18 12/19/18 17:08 21:15 08:17 WBC Hct MCV RDW Plt Count Lymph % (Auto) [place] % (Auto) Lymph # Moffat # Seg Neutrophils % Seg Neuts % (Manual) Lymphocytes % (Manual) Monocytes % (Manual) Nucleated RBC % Seg Neutrophils # Seg Neutrophils # Man Lymphocytes # (Manual) Monocytes # (Manual) APTT POC ABG pH POC ABG pO2 ABG pO2 ABG HCO3 ABG O2 Saturation ABG Base Excess Oxyhemoglobin Sodium Potassium Chloride Carbon Dioxide BUN Creatinine Glucose POC Glucose 208 H 268 H 306 H Lactic Acid Magnesium AST ALT Ammonia Troponin T Total Protein Albumin HDL Cholesterol TSH Salicylates Acetaminophen 12/19/18 12/19/18 12/19/18 11:44 12:30 16:13 WBC Hct MCV RDW Plt Count Lymph % (Auto) [place] % (Auto) Lymph # Moffat # Seg Neutrophils % Seg Neuts % (Manual) Lymphocytes % (Manual) Monocytes % (Manual) Nucleated RBC % Seg Neutrophils # Seg Neutrophils # Man Lymphocytes # (Manual) Monocytes # (Manual) APTT POC ABG pH POC ABG pO2 ABG pO2 45.5 L ABG HCO3 41.6 H ABG O2 Saturation 81.0 L ABG Base Excess 13.6 H Oxyhemoglobin 78.6 L Sodium Potassium Chloride Carbon Dioxide BUN Creatinine Glucose POC Glucose 265 H 245 H Lactic Acid Magnesium AST ALT Ammonia Troponin T Total Protein Albumin HDL Cholesterol TSH Salicylates Acetaminophen 12/19/18 12/20/18 12/20/18 21:55 07:09 07:09 WBC Hct MCV 98 H RDW 16.2 H Plt Count 126 L Lymph % (Auto) Moffat % (Auto) 12.2 H Lymph # Moffat # 0.9 H Seg Neutrophils % Seg Neuts % (Manual) Lymphocytes % (Manual) Monocytes % (Manual) Nucleated RBC % Seg Neutrophils # Seg Neutrophils # Man Lymphocytes # (Manual) Monocytes # (Manual) APTT POC ABG pH POC ABG pO2 ABG pO2 ABG HCO3 ABG O2 Saturation ABG Base Excess Oxyhemoglobin Sodium Potassium 5.1 H Chloride 96.5 L Carbon Dioxide 38 H BUN 26 H Creatinine Glucose 248 H POC Glucose 211 H Lactic Acid Magnesium AST ALT Ammonia Troponin T Total Protein Albumin HDL Cholesterol TSH Salicylates Acetaminophen 12/20/18 12/20/18 07:24 11:43 WBC Hct MCV RDW Plt Count Lymph % (Auto) [place] % (Auto) Lymph # Moffat # Seg Neutrophils % Seg Neuts % (Manual) Lymphocytes % (Manual) Monocytes % (Manual) Nucleated RBC % Seg Neutrophils # Seg Neutrophils # Man Lymphocytes # (Manual) Monocytes # (Manual) APTT POC ABG pH POC ABG pO2 ABG pO2 ABG HCO3 ABG O2 Saturation ABG Base Excess Oxyhemoglobin Sodium Potassium Chloride Carbon Dioxide BUN Creatinine Glucose POC Glucose 223 H 253 H Lactic Acid Magnesium AST ALT Ammonia Troponin T Total Protein Albumin HDL Cholesterol TSH Salicylates Acetaminophen
[2018-12-20] MEDS: SINGULAIR PO SCH (18:24)
[2018-12-20] MEDS: ROCEPHIN/NS 2 GM/100 ML 2 GM/100 ML BAG IV SCH (19:39)
[2018-12-20] MEDS: SENOKOT PO SCH (21:25)
[2018-12-20] MEDS: LANTUS SUB-Q SCH (21:26)
[2018-12-20] MEDS: DESYREL PO SCH (21:26)
[2018-12-21] MEDS: APRESOLINE PO SCH ×4 (00:36→23:58)
[2018-12-21] MEDS: ISORDIL TITRADOSE PO SCH ×4 (00:36→23:59)
[2018-12-21] MEDS: DUONEB *Not for PRN Use IH SCH ×4 (03:32→19:18)
[2018-12-21] MEDS: SORBITOL 70% PO SCH ×2 (05:58→17:10)
[2018-12-21] MEDS: LASIX PO SCH (05:59)
--- NOTE | 2018-12-21 09:10 | XRay Report ---
CHEST 1 VIEW INDICATION / CLINICAL INFORMATION: AE-COPD, CHF. COMPARISON: 12/14/2018 FINDINGS: SUPPORT DEVICES: None. HEART / MEDIASTINUM: No significant abnormality. LUNGS / PLEURA: There is slight midlung atelectasis and minimal bibasilar density unchanged. No effus ions are seen. Upper lungs are clear. No pneumothorax. ADDITIONAL FINDINGS: No significant additional findings. IMPRESSION: 1. No significant change Signer Name: Bao Marmolejo MD Signed: 12/21/2018 9:06 AM Workstation Name: [id number]
[2018-12-21] MEDS: FLONASE NS SCH ×2 (09:34→21:58)
[2018-12-21] MEDS: COZAAR PO SCH (09:35)
[2018-12-21] MEDS: DELTASONE PO SCH (09:36)
[2018-12-21] MEDS: ECOTRIN PO SCH (09:36)
[2018-12-21] MEDS: ATIVAN PO SCH (09:36)
[2018-12-21] MEDS: PEPCID PO SCH (09:37)
[2018-12-21] MEDS: COREG PO SCH ×2 (09:37→21:51)
[2018-12-21] MEDS: CLARITIN PO SCH (09:41)
[2018-12-21] MEDS: HumaLOG SUB-Q SCH ×7 (09:42→21:52)
[2018-12-21] MEDS: WELLBUTRIN SR PO SCH (09:43)
[2018-12-21] MEDS: PULMICORT IH SCH ×2 (09:52→19:18)
[2018-12-21] MEDS: NORCO 10/325 PO PRN ×3 (10:04→23:59)
--- NOTE | 2018-12-21 11:03 | Progress Note ---
Assessment and Plan Assessment and plan: Patient is 48-year-old morbidly obese woman with a myraid of medical problems including COPD, obesity, hypoventilation, obstructive sleep apnea, bipolar disorder, congestive heart failure was admitted through emergency room with acute on chronic hypoxic hypercapnic respiratory failure Requiring BiPAP and CPAP, --Acute on chronic hypoxic, hypercapnic respiratory failure; Secondary to acute exacerbation of COPD ,Oxygen titrate O2 sats to more than 90%, BiPAP as needed, If no improvement intubate as needed. --Acute exacerbation of COPD; Oxygen, nebulizers, tapering doses of IV steroids, IV antibiotics Inhalation steroids, pulmonary consult if needed --Hypertension; moderate control Continue current antihypertensives and when necessary medications --Acute kidney injury; vasomotor nephropathy, closely monitor renal function Avoid nephrotoxins, nephrology consult if no improvement --Hyperkalemia: Kayexalate, monitor K levels --History of congestive heart failure; EF 40-45% in April 2018 Continue diuretics, beta blockers, alo inhibitors Input-output monitoring, low sodium diet, cardiology evaluation if needed --Type 2 diabetes mellitus; uncontrolled on insulin, A1c 10.4[6 months ago] Accu-Chek sliding scale coverage and ADA diet insulin as needed Diabetic education, nutrition consult if needed --Dyslipidemia; continue statin, low-cholesterol diet --Morbid obesity; BMI 53 Patient would benefit by bariatric surgical weight reduction program When medically stable, outpatient evaluation at discharge --Nonspecific elevation of troponins; probably NSTEMI type2 She denies chest pain, closely monitor --Lactic acidosis; supportive care -Functional quadriplegia, poa consult PT --DVT prophylaxis; Lovenox --Full CODE STATUS --DC planning with case management Disposition; discharged back to [facility] when medically stable, today she was hypoxic History Interval history: Patient seen and examined, continues on Venturi mask. No new complaints Hospitalist Physical - Physical exam Narrative exam: Gen: chronic ill appearing, bmi 53, Mild increase accessory muscles, Awake, Alert, Orientated HEENT: NCAT, EOMI, PERRL, OP Clear Neck: supple, no adenopathy, no thyromegaly, no JVD CVS/Heart: RRR, normal S1S2, pulses present bilaterally Chest/Lungs: diminished bd bilateral, Symmetrical chest expansion, good air entry bilaterally GI/Abdomen: soft, NTND, good bowel sounds, no guarding or rebound /Bladder: no suprapubic tenderness, no CVA or paraspinal tenderness Extermity/Skin: no c/c/e, no obvious rash MSK: FROM x 4 Neuro: CN 2-12 grossly intact, no new focal deficits Psych: calm - Constitutional Vitals: Temp Pulse Resp BP Pulse Ox 98.6 F 100 H 18 130/80 98 12/21/18 09:34 12/21/18 09:56 12/21/18 09:56 12/21/18 09:37 12/21/18 09:58 General appearance: Present: mild distress, well-nourished, obese (morbidly obese) Results - Labs CBC & Chem 7: 12/20/18 07:09 12/20/18 07:09 Labs: Laboratory Last Values WBC 7.4 K/mm3 (4.5-11.0) 12/20/18 07:09 RBC 4.38 M/mm3 (3.65-5.03) 12/20/18 07:09 Hgb 13.8 gm/dl (10.1-14.3) 12/20/18 07:09 Hct 42.9 % (30.3-42.9) 12/20/18 07:09 MCV 98 fl (79-97) H 12/20/18 07:09 MCH 31 pg (28-32) 12/20/18 07:09 MCHC 32 % (30-34) 12/20/18 07:09 RDW 16.2 % (13.2-15.2) H 12/20/18 07:09 Plt Count 126 K/mm3 (140-440) L 12/20/18 07:09 Lymph % (Auto) 21.0 % (13.4-35.0) 12/20/18 07:09 [place] % (Auto) 12.2 % (0.0-7.3) H 12/20/18 07:09 Eos % (Auto) 0.4 % (0.0-4.3) 12/20/18 07:09 Baso % (Auto) 0.5 % (0.0-1.8) 12/20/18 07:09 Lymph # 1.5 K/mm3 (1.2-5.4) 12/20/18 07:09 [place] # 0.9 K/mm3 (0.0-0.8) H 12/20/18 07:09 Eos # 0.0 K/mm3 (0.0-0.4) 12/20/18 07:09 Baso # 0.0 K/mm3 (0.0-0.1) 12/20/18 07:09 Add Manual Diff Complete 12/14/18 06:00 Total Counted 100 12/14/18 06:00 Seg Neutrophils % 65.9 % (40.0-70.0) 12/20/18 07:09 Seg Neuts % (Manual) 87.0 % (40.0-70.0) H 12/14/18 06:00 1.0 % 12/14/18 06:00 2.0 % (13.4-35.0) L 12/14/18 06:00 Reactive Lymphs % (Man) 0 % 12/14/18 06:00 10.0 % (0.0-7.3) H 12/14/18 06:00 0 % (0.0-4.3) 12/14/18 06:00 0 % (0.0-1.8) 12/14/18 06:00 0 % 12/14/18 06:00 0 % 12/14/18 06:00 0 % 12/14/18 06:00 0 % 12/14/18 06:00 Nucleated RBC % 3.0 % (0.0-0.9) H 12/14/18 06:00 Seg Neutrophils # 4.9 K/mm3 (1.8-7.7) 12/20/18 07:09 Seg Neutrophils # Man 13.2 K/mm3 (1.8-7.7) H 12/14/18 06:00 Band Neutrophils # 0.2 K/mm3 12/14/18 06:00 0.3 K/mm3 (1.2-5.4) L 12/14/18 06:00 Abs React Lymphs (Man) 0.0 K/mm3 12/14/18 06:00 1.5 K/mm3 (0.0-0.8) H 12/14/18 06:00 0.0 K/mm3 (0.0-0.4) 12/14/18 06:00 0.0 K/mm3 (0.0-0.1) 12/14/18 06:00 0.0 K/mm3 12/14/18 06:00 0.0 K/mm3 12/14/18 06:00 0.0 K/mm3 12/14/18 06:00 Blast Cells # 0.0 K/mm3 12/14/18 06:00 WBC Morphology Not Reportable 12/14/18 06:00 Hypersegmented Neuts Not Reportable 12/14/18 06:00 Hyposegmented Neuts Not Reportable 12/14/18 06:00 Hypogranular Neuts Not Reportable 12/14/18 06:00 Not Reportable 12/14/18 06:00 Not Reportable 12/14/18 06:00 Not Reportable 12/14/18 06:00 Not Reportable 12/14/18 06:00 Not Reportable 12/14/18 06:00 Not Reportable 12/14/18 06:00 Consistent w auto 12/14/18 06:00 Not Reportable 12/14/18 06:00 Plt Clumps, EDTA Not Reportable 12/14/18 06:00 Not Reportable 12/14/18 06:00 Not Reportable 12/14/18 06:00 Not Reportable 12/14/18 06:00 Plt Morphology Comment Not Reportable 12/14/18 06:00 RBC Morphology Not Reportable 12/14/18 06:00 Dimorphic RBCs Not Reportable 12/14/18 06:00 Few 12/14/18 06:00 Not Reportable 12/14/18 06:00 Not Reportable 12/14/18 06:00 1+ 12/14/18 06:00 Not Reportable 12/14/18 06:00 1+ 12/14/18 06:00 Not Reportable 12/14/18 06:00 Not Reportable 12/14/18 06:00 Not Reportable 12/14/18 06:00 Not Reportable 12/14/18 06:00 Few 12/14/18 06:00 Not Reportable 12/14/18 06:00 Not Reportable 12/14/18 06:00 Not Reportable 12/14/18 06:00 Not Reportable 12/14/18 06:00 Not Reportable 12/14/18 06:00 Not Reportable 12/14/18 06:00 Not Reportable 12/14/18 06:00 Not Reportable 12/14/18 06:00 Acanthocytes (Spur) Not Reportable 12/14/18 06:00 Rouleaux Not Reportable 12/14/18 06:00 Not Reportable 12/14/18 06:00 Not Reportable 12/14/18 06:00 Not Reportable 12/14/18 06:00 Not Reportable 12/14/18 06:00 Hem Pathologist Commnt No 12/14/18 06:00 PT 13.5 Sec. (12.2-14.9) 12/14/18 06:45 INR 1.06 (0.87-1.13) 12/14/18 06:45 APTT 22.8 Sec. (24.2-36.6) L 12/14/18 06:45 POC ABG pH 7.324 (7.35-7.45) L 12/18/18 15:03 ABG pH 7.403 pH Units (7.350-7.450) 12/19/18 12:30 ABG pCO2 68.3 mm Hg 12/19/18 12:30 POC ABG pO2 51 (80-105) L 12/18/18 15:03 ABG pO2 45.5 mm Hg (80.0-90.0) L 12/19/18 12:30 POC ABG HCO3 43.3 (22-26 mml/L) 12/18/18 15:03 ABG HCO3 41.6 mmol/L (20.0-26.0) H 12/19/18 12:30 POC ABG Total CO2 46 (23-27mmol/L) 12/18/18 15:03 POC ABG O2 Sat 80 12/18/18 15:03 ABG O2 Saturation 81.0 % (95.0-99.0) L 12/19/18 12:30 ABG O2 Content 15.1 (0.0-44) 12/19/18 12:30 POC ABG Base Excess 17 ((-2) - (+3)mmol/L) 12/18/18 15:03 ABG Base Excess 13.6 mmol/L (-2.0-3.0) H 12/19/18 12:30 ABG Hemoglobin 13.7 gm/dl (12.0-16.0) 12/19/18 12:30 ABG Carboxyhemoglobin 2.2 % (0.0-5.0) 12/19/18 12:30 ABG Methemoglobin 0.6 % (0.0-1.5) 12/19/18 12:30 78.6 % (95.0-99.0) L 12/19/18 12:30 32 % 12/19/18 12:30 Sodium 144 mmol/L (137-145) 12/20/18 07:09 Potassium 5.1 mmol/L (3.6-5.0) H 12/20/18 07:09 Chloride 96.5 mmol/L (98-107) L 12/20/18 07:09 Carbon Dioxide 38 mmol/L (22-30) H 12/20/18 07:09 15 mmol/L 12/20/18 07:09 BUN 26 mg/dL (7-17) H 12/20/18 07:09 0.9 mg/dL (0.7-1.2) 12/20/18 07:09 Estimated GFR > 60 ml/min 12/20/18 07:09 29 % 12/20/18 07:09 Glucose 248 mg/dL (65-100) H 12/20/18 07:09 POC Glucose 266 (70-105) H 12/21/18 07:49 Lactic Acid 2.20 mmol/L (0.7-2.0) H* 12/14/18 09:52 Calcium 9.0 mg/dL (8.4-10.2) 12/20/18 07:09 Magnesium 2.80 mg/dL (1.7-2.3) H 12/18/18 05:37 0.20 mg/dL (0.1-1.2) 12/16/18 05:59 AST 33 units/L (5-40) 12/16/18 05:59 ALT 87 units/L (7-56) H 12/16/18 05:59 58 units/L (35-129) 12/16/18 05:59 86.0 umol/L (25-60) H 12/14/18 06:45 0.178 ng/mL (0.00-0.029) H* 12/14/18 06:00 6.0 g/dL (6.3-8.2) L 12/16/18 05:59 3.2 g/dL (3.9-5) L 12/16/18 05:59 1.1 % 12/16/18 05:59 Triglycerides 100 mg/dL (2-149) 12/14/18 06:00 Cholesterol 169 mg/dL (50-199) 12/14/18 06:00 84 mg/dL (50-130) 12/14/18 06:00 82 mg/dL (40-59) H 12/14/18 06:00 2.06 % 12/14/18 06:00 TSH 6.220 mlU/mL (0.270-4.200) H 12/14/18 06:00 Free T4 0.77 ng/dL (0.76-1.46) 12/14/18 07:46 Yellow (Yellow) 12/14/18 12:58 Slightly-cloudy (Clear) 12/14/18 12:58 5.0 (5.0-7.0) 12/14/18 12:58 Ur Specific [place] 1.018 (1.003-1.030) 12/14/18 12:58 >2000 mg dl mg/dL (Negative) 12/14/18 12:58 >=500 mg/dL (Negative) 12/14/18 12:58 Neg mg/dL (Negative) 12/14/18 12:58 Neg (Negative) 12/14/18 12:58 Neg (Negative) 12/14/18 12:58 Neg (Negative) 12/14/18 12:58 < 2.0 mg/dL (<2.0) 12/14/18 12:58 Ur Leukocyte Esterase Neg (Negative) 12/14/18 12:58 4.0 /HPF (0.0-6.0) 12/14/18 12:58 2.0 /HPF (0.0-6.0) 12/14/18 12:58 U Epithel Cells (Auto) 1.0 /HPF (0-13.0) 12/14/18 12:58 Few /HPF 12/14/18 12:58 Salicylates < 0.3 mg/dL (2.8-20.0) L 12/14/18 06:00 Presumptive negative 12/14/18 12:58 Presumptive negative 12/14/18 12:58 Acetaminophen < 5.0 ug/mL (10.0-30.0) L 12/14/18 06:00 Ur Barbiturates Screen Presumptive negative 12/14/18 12:58 Ur Phencyclidine Scrn Presumptive negative 12/14/18 12:58 Ur Amphetamines Screen Presumptive negative 12/14/18 12:58 U Benzodiazepines Scrn Presumptive negative 12/14/18 12:58 Presumptive negative 12/14/18 12:58 U Marijuana (THC) Screen Presumptive negative 12/14/18 12:58 Disclamer 12/14/18 12:58 Plasma/Serum Alcohol < 0.01 % (0-0.07) 12/14/18 06:00 Active Medications - Current Medications Current Medications: Generic Name Dose Route Start Last Admin Trade Name Freq PRN Reason Stop Dose Admin Acetaminophen 325 mg 12/14/18 16:54 12/19/18 09:10 Tylenol PO 325 mg Q6H PRN Administration Pain, Mild (1-3) Acetaminophen/Hydrocodone Bitart 1 each 12/14/18 17:00 12/21/18 10:04 [place] 10/325 PO 1 each Q4H PRN Administration Pain , Severe (7-10) Albuterol 2.5 mg 12/14/18 16:54 12/20/18 09:15 Proventil IH 2.5 mg Q3HRT PRN Administration Shortness Of Breath Albuterol/Ipratropium 1 ampul 12/14/18 20:00 12/21/18 09:51 Duoneb *Not For Prn Use* IH 1 ampul Q6HRT JOE Administration Aspirin 325 mg 12/15/18 10:00 12/21/18 09:36 Ecotrin PO 325 mg DAILY JOE Administration Atorvastatin Calcium 40 mg 12/14/18 22:00 12/20/18 21:27 Lipitor PO 40 mg QHS JOE Administration Budesonide 0.5 mg 12/14/18 20:00 12/21/18 09:52 Pulmicort IH 0.5 mg Q12HRT JOE Administration Bupropion HCl 100 mg 12/14/18 18:00 12/21/18 09:43 Wellbutrin Sr PO Not Given DAILY JOE Carbamazepine 200 mg 12/14/18 18:00 12/21/18 09:37 Tegretol PO 200 mg DAILY JOE Administration Carvedilol 6.25 mg 12/14/18 22:00 12/21/18 09:37 Coreg PO 6.25 mg BID JOE Administration Dextrose 50 ml 12/15/18 23:06 D50w (25gm) Syringe IV PRN PRN Hypoglycemia Famotidine 20 mg 12/14/18 18:00 12/21/18 09:37 Pepcid PO 20 mg DAILY JOE Administration Fluticasone Propionate 50 mcg 12/14/18 22:00 12/21/18 09:34 Flonase NS 50 mcg BID JOE Administration Furosemide 20 mg 12/14/18 18:00 12/21/18 05:59 Lasix PO 20 mg DAILY@0600 JOE Administration Hydralazine HCl 37.5 mg 12/14/18 17:00 12/21/18 06:00 Apresoline PO 37.5 mg Q8H JOE Administration Hydralazine HCl 10 mg 12/20/18 14:26 Apresoline IV Q4HR PRN Blood Pressure Ceftriaxone Sodium 2 gm in 100 mls @ 200 mls/hr 12/14/18 19:30 12/20/18 19:39 Rocephin/Ns 2 Gm/100 Ml IV 200 mls/hr Q24H JOE Administration Protocol Insulin Glargine 30 units 12/19/18 22:00 12/20/18 21:26 Lantus SUB-Q 30 units QHS JOE Administration Insulin Human Lispro 0 unit 12/16/18 00:00 12/21/18 09:42 Humalog SUB-Q 4 unit ACHS JOE Administration Protocol Insulin Human Lispro 5 unit 12/17/18 16:30 12/21/18 09:43 Humalog SUB-Q 5 unit AC JOE Administration Isosorbide Dinitrate 20 mg 12/14/18 17:00 12/21/18 06:00 Isordil Titradose PO 20 mg Q8H JOE Administration Loratadine 10 mg 12/14/18 18:00 12/21/18 09:41 Claritin PO 10 mg DAILY JOE Administration Lorazepam 0.5 mg 12/14/18 18:00 12/21/18 09:36 Ativan PO 0.5 mg DAILY JOE Administration Losartan Potassium 50 mg 12/14/18 18:00 12/21/18 09:35 Cozaar PO 50 mg QDAY JOE Administration Montelukast Sodium 10 mg 12/14/18 18:00 12/20/18 18:24 Singulair PO 10 mg QPM JOE Administration Polyethylene Glycol 17 gm 12/14/18 17:00 Miralax 3350 PO QDAY PRN Constipation Prednisone 30 mg 12/21/18 10:00 12/21/18 09:36 Deltasone PO 30 mg QDAY JOE Administration Quetiapine Fumarate 300 mg 12/19/18 22:00 12/21/18 09:36 Seroquel PO 300 mg BID JOE Administration Senna 17.2 mg 12/14/18 22:00 12/20/18 21:25 Senokot PO 17.2 mg HS JOE Administration Sorbitol 30 ml 12/14/18 18:00 12/21/18 05:58 Sorbitol 70% PO 30 ml Q12H JOE Administration Trazodone HCl 50 mg 12/14/18 22:00 12/20/18 21:26 Desyrel PO 50 mg QHS JOE Administration Nutrition/Malnutrition Assess - Dietary Evaluation Nutrition/Malnutrition Findings: Nutrition Notes Start: 12/18/18 14:51 Freq: Status: Active Protocol: Document 12/18/18 14:51 RM (Rec: 12/18/18 14:56 RM [id number]) Nutrition Notes Initial or Follow up Brief Note Current Diagnosis Acute Kidney Injury,COPD, Diabetes,Hypertension,Heart Failure,Hyperlipidemia Other Pertinent Diagnosis End stage lung dz, Schizophrenia, Depressive disorder, Dementia Current Diet Cardiac/Consistent CHO Subjective/Other Information Kitchen staff notified radio script writer that pt is requesting more food. Pt stated that she eats all of her meals and is hungry afterwards. Go Cart Mechanic explained that amount of food provided is d/t pt's health issuses but agreed to provide double protein portions. Nutrition Intervention Revisit per MD consult or patient Sign Off request: - Attestation Statement I have reviewed and agreed w/ Malnutrition eval & tx plan: Yes
[2018-12-21] MEDS: SINGULAIR PO SCH (17:09)
--- NOTE | 2018-12-21 18:28 | Progress Note ---
Assessment and Plan Patient alert and awake. Resting on Venturri mask, FiO2 50%. O2 saturation 98%. No acute respiratory distress. BIPAP 20/10, rate 16 as standby in the room. - Patient Problems (1) Acute and chronic respiratory failure with hypercapnia Current Visit: No Status: Acute Plan to address problem: 1. Patient is on BIPAP 20/10, rate 16, FiO2 35%. 2. Albuterol and Atrovent q 6 hrs 3. Continue Prednisone 4. Continue Ceftriaxone. 5. SCDs for DVT prophylaxis 6. Continue famotidine. (2) Morbid obesity with BMI of 50.0-59.9, adult Current Visit: Yes Status: Acute Plan to address problem: Recommend weight loss and exercise and diet modification. (3) COPD exacerbation Current Visit: Yes Status: Acute Plan to address problem: 1. Patient is on BIPAP 20/10, rate 16, FiO2 35%. 2. Albuterol and Atrovent q 6 hrs 3. Continue Prednisone 4. Continue Ceftriaxone. 5. SCDs for DVT prophylaxis 6. Continue famotidine. 7. Recommend PFTs as outpatient. (4) Obesity hypoventilation syndrome Current Visit: Yes Status: Acute Plan to address problem: BIPAP 20/10, rate 16, FiO2 35%. (5) Acute on chronic systolic heart failure Current Visit: No Status: Acute Plan to address problem: Management as per primary care and cardiology. (6) Sleep apnea syndrome Current Visit: No Status: Acute Plan to address problem: Patient is on home CPAP. Recommend weight loss and discussed sleep hygiene. (7) Hypertension Current Visit: No Status: Chronic Qualifiers: Plan to address problem: Management as per primary care. (8) T2DM (type 2 diabetes mellitus) Current Visit: No Status: Chronic Plan to address problem: Management as per primary care. Subjective Date of service: 12/21/18 Interval history: Patient alert and awake. Resting on Venturri mask, FiO2 50%. O2 saturation 98%. No acute respiratory distress. BIPAP 20/10, rate 16 as standby in the room. Objective Vital Signs - 12hr 12/21/18 12/21/18 12/21/18 09:34 09:35 09:37 Temperature 98.6 F Pulse Rate 96 H 95 H 95 H Pulse Rate [ Anterior Bilateral Throughout] Pulse Rate [ Anterior] Respiratory 20 Rate Respiratory Rate [Anterior Bilateral Throughout] Respiratory Rate [Anterior] Blood Pressure 130/80 130/80 130/80 Blood Pressure [Left] O2 Sat by Pulse 97 Oximetry 12/21/18 12/21/18 12/21/18 09:56 09:58 10:00 Temperature Pulse Rate 78 Pulse Rate [ 98 H Anterior Bilateral Throughout] Pulse Rate [ 100 H Anterior] Respiratory Rate Respiratory 20 Rate [Anterior Bilateral Throughout] Respiratory 18 Rate [Anterior] Blood Pressure Blood Pressure [Left] O2 Sat by Pulse 98 Oximetry 12/21/18 12/21/18 12/21/18 11:30 14:51 15:07 Temperature 98.7 F Pulse Rate 91 H 92 H Pulse Rate [ 93 H Anterior Bilateral Throughout] Pulse Rate [ 88 Anterior] Respiratory 26 H Rate Respiratory 18 Rate [Anterior Bilateral Throughout] Respiratory 18 Rate [Anterior] Blood Pressure 113/68 Blood Pressure 119/75 [Left] O2 Sat by Pulse Oximetry Constitutional: no acute distress, alert, other (morbidly obese) Eyes: non-icteric ENT: oropharynx moist Neck: supple Ascultation: Bilateral: diminished breath sounds Cardiovascular: regular rate and rhythm Gastrointestinal: normoactive bowel sounds Integumentary: normal Extremities: no cyanosis Neurologic: normal mental status Psychiatric: mood appropriate, affect normal CBC and BMP: 12/20/18 07:09 12/20/18 07:09 ABG, PT/INR, D-dimer: ABG POC ABG pH 7.324 (7.35-7.45) L 12/18/18 15:03 ABG pH 7.403 pH Units (7.350-7.450) 12/19/18 12:30 ABG pCO2 68.3 mm Hg 12/19/18 12:30 POC ABG pO2 51 (80-105) L 12/18/18 15:03 ABG pO2 45.5 mm Hg (80.0-90.0) L 12/19/18 12:30 POC ABG HCO3 43.3 (22-26 mml/L) 12/18/18 15:03 POC ABG Total CO2 46 (23-27mmol/L) 12/18/18 15:03 POC ABG O2 Sat 80 12/18/18 15:03 ABG O2 Saturation 81.0 % (95.0-99.0) L 12/19/18 12:30 PT/INR, D-dimer PT 13.5 Sec. (12.2-14.9) 12/14/18 06:45 INR 1.06 (0.87-1.13) 12/14/18 06:45 Abnormal lab findings: Abnormal Labs 12/14/18 12/14/18 12/14/18 06:00 06:00 06:00 WBC 15.2 H Hct 45.4 H MCV 101 H RDW 17.5 H Plt Count Lymph % (Auto) [place] % (Auto) 9.6 H Lymph # [place] # 1.5 H Seg Neutrophils % 77.0 H Seg Neuts % (Manual) 87.0 H Lymphocytes % (Manual) 2.0 L Monocytes % (Manual) 10.0 H Nucleated RBC % 3.0 H Seg Neutrophils # 11.7 H Seg Neutrophils # Man 13.2 H Lymphocytes # (Manual) 0.3 L Monocytes # (Manual) 1.5 H APTT POC ABG pH POC ABG pO2 ABG pO2 ABG HCO3 ABG O2 Saturation ABG Base Excess Oxyhemoglobin Sodium 135 L Potassium 5.4 H Chloride 90.4 L Carbon Dioxide 32 H BUN 21 H Creatinine 1.6 H Glucose 380 H POC Glucose Lactic Acid Magnesium AST 58 H ALT Ammonia Troponin T 0.178 H* Total Protein 5.8 L Albumin 3.5 L HDL Cholesterol 82 H TSH 6.220 H Salicylates Acetaminophen 12/14/18 12/14/18 12/14/18 06:00 06:00 06:03 WBC Hct MCV RDW Plt Count Lymph % (Auto) [place] % (Auto) Lymph # [place] # Seg Neutrophils % Seg Neuts % (Manual) Lymphocytes % (Manual) Monocytes % (Manual) Nucleated RBC % Seg Neutrophils # Seg Neutrophils # Man Lymphocytes # (Manual) Monocytes # (Manual) APTT POC ABG pH POC ABG pO2 ABG pO2 ABG HCO3 ABG O2 Saturation ABG Base Excess Oxyhemoglobin Sodium Potassium Chloride Carbon Dioxide BUN Creatinine Glucose POC Glucose 266 H Lactic Acid Magnesium AST ALT Ammonia Troponin T Total Protein Albumin HDL Cholesterol TSH Salicylates < 0.3 L Acetaminophen < 5.0 L 12/14/18 12/14/18 12/14/18 06:45 06:45 07:31 WBC Hct MCV RDW Plt Count Lymph % (Auto) [place] % (Auto) Lymph # [place] # Seg Neutrophils % Seg Neuts % (Manual) Lymphocytes % (Manual) Monocytes % (Manual) Nucleated RBC % Seg Neutrophils # Seg Neutrophils # Man Lymphocytes # (Manual) Monocytes # (Manual) APTT 22.8 L POC ABG pH 7.153 L POC ABG pO2 122 H ABG pO2 ABG HCO3 ABG O2 Saturation ABG Base Excess Oxyhemoglobin Sodium Potassium Chloride Carbon Dioxide BUN Creatinine Glucose POC Glucose Lactic Acid Magnesium AST ALT Ammonia 86.0 H Troponin T Total Protein Albumin HDL Cholesterol TSH Salicylates Acetaminophen 12/14/18 12/14/18 12/14/18 07:46 09:52 09:57 WBC Hct MCV RDW Plt Count Lymph % (Auto) [place] % (Auto) Lymph # [place] # Seg Neutrophils % Seg Neuts % (Manual) Lymphocytes % (Manual) Monocytes % (Manual) Nucleated RBC % Seg Neutrophils # Seg Neutrophils # Man Lymphocytes # (Manual) Monocytes # (Manual) APTT POC ABG pH 7.269 L POC ABG pO2 63 L ABG pO2 ABG HCO3 ABG O2 Saturation ABG Base Excess Oxyhemoglobin Sodium Potassium Chloride Carbon Dioxide BUN Creatinine Glucose POC Glucose Lactic Acid 2.40 H* 2.20 H* Magnesium AST ALT Ammonia Troponin T Total Protein Albumin HDL Cholesterol TSH Salicylates Acetaminophen 12/14/18 12/15/18 12/15/18 17:51 12:14 22:38 WBC Hct MCV RDW Plt Count Lymph % (Auto) [place] % (Auto) Lymph # [place] # Seg Neutrophils % Seg Neuts % (Manual) Lymphocytes % (Manual) Monocytes % (Manual) Nucleated RBC % Seg Neutrophils # Seg Neutrophils # Man Lymphocytes # (Manual) Monocytes # (Manual) APTT POC ABG pH 7.293 L POC ABG pO2 73 L ABG pO2 ABG HCO3 ABG O2 Saturation ABG Base Excess Oxyhemoglobin Sodium Potassium Chloride Carbon Dioxide BUN Creatinine Glucose POC Glucose 247 H 376 H Lactic Acid Magnesium AST ALT Ammonia Troponin T Total Protein Albumin HDL Cholesterol TSH Salicylates Acetaminophen 12/16/18 12/16/18 12/16/18 05:59 05:59 08:16 WBC Hct MCV 99 H RDW 16.6 H Plt Count 114 L Lymph % (Auto) 8.1 L [place] % (Auto) Lymph # 0.7 L [place] # Seg Neutrophils % 84.2 H Seg Neuts % (Manual) Lymphocytes % (Manual) Monocytes % (Manual) Nucleated RBC % Seg Neutrophils # Seg Neutrophils # Man Lymphocytes # (Manual) Monocytes # (Manual) APTT POC ABG pH POC ABG pO2 ABG pO2 ABG HCO3 ABG O2 Saturation ABG Base Excess Oxyhemoglobin Sodium Potassium 5.4 H Chloride 96.0 L Carbon Dioxide 40 H D BUN 27 H Creatinine Glucose 355 H POC Glucose 305 H Lactic Acid Magnesium AST ALT 87 H Ammonia Troponin T Total Protein 6.0 L Albumin 3.2 L HDL Cholesterol TSH Salicylates Acetaminophen 12/16/18 12/16/18 12/16/18 11:45 16:22 21:15 WBC Hct MCV RDW Plt Count Lymph % (Auto) [place] % (Auto) Lymph # [place] # Seg Neutrophils % Seg Neuts % (Manual) Lymphocytes % (Manual) Monocytes % (Manual) Nucleated RBC % Seg Neutrophils # Seg Neutrophils # Man Lymphocytes # (Manual) Monocytes # (Manual) APTT POC ABG pH POC ABG pO2 ABG pO2 ABG HCO3 ABG O2 Saturation ABG Base Excess Oxyhemoglobin Sodium Potassium Chloride Carbon Dioxide BUN Creatinine Glucose POC Glucose 361 H 265 H 254 H Lactic Acid Magnesium AST ALT Ammonia Troponin T Total Protein Albumin HDL Cholesterol TSH Salicylates Acetaminophen 12/17/18 12/17/18 12/17/18 08:43 12:03 16:58 WBC Hct MCV RDW Plt Count Lymph % (Auto) [place] % (Auto) Lymph # [place] # Seg Neutrophils % Seg Neuts % (Manual) Lymphocytes % (Manual) Monocytes % (Manual) Nucleated RBC % Seg Neutrophils # Seg Neutrophils # Man Lymphocytes # (Manual) Monocytes # (Manual) APTT POC ABG pH POC ABG pO2 ABG pO2 ABG HCO3 ABG O2 Saturation ABG Base Excess Oxyhemoglobin Sodium Potassium 5.6 H Chloride 96.4 L Carbon Dioxide 38 H BUN 25 H Creatinine Glucose 266 H POC Glucose 265 H 343 H Lactic Acid Magnesium AST ALT Ammonia Troponin T Total Protein Albumin HDL Cholesterol TSH Salicylates Acetaminophen 12/17/18 12/17/18 12/18/18 17:16 21:47 05:37 WBC Hct MCV RDW Plt Count Lymph % (Auto) [place] % (Auto) Lymph # [place] # Seg Neutrophils % Seg Neuts % (Manual) Lymphocytes % (Manual) Monocytes % (Manual) Nucleated RBC % Seg Neutrophils # Seg Neutrophils # Man Lymphocytes # (Manual) Monocytes # (Manual) APTT POC ABG pH POC ABG pO2 ABG pO2 ABG HCO3 ABG O2 Saturation ABG Base Excess Oxyhemoglobin Sodium Potassium 5.9 H Chloride 97.3 L Carbon Dioxide 33 H BUN 24 H Creatinine Glucose 259 H POC Glucose 251 H 304 H Lactic Acid Magnesium 2.80 H AST ALT Ammonia Troponin T Total Protein Albumin HDL Cholesterol TSH Salicylates Acetaminophen 12/18/18 12/18/18 12/18/18 07:38 11:36 15:03 WBC Hct MCV RDW Plt Count Lymph % (Auto) [place] % (Auto) Lymph # [place] # Seg Neutrophils % Seg Neuts % (Manual) Lymphocytes % (Manual) Monocytes % (Manual) Nucleated RBC % Seg Neutrophils # Seg Neutrophils # Man Lymphocytes # (Manual) Monocytes # (Manual) APTT POC ABG pH 7.324 L POC ABG pO2 51 L ABG pO2 ABG HCO3 ABG O2 Saturation ABG Base Excess Oxyhemoglobin Sodium Potassium Chloride Carbon Dioxide BUN Creatinine Glucose POC Glucose 288 H 326 H Lactic Acid Magnesium AST ALT Ammonia Troponin T Total Protein Albumin HDL Cholesterol TSH Salicylates Acetaminophen 12/18/18 12/18/18 12/19/18 17:08 21:15 08:17 WBC Hct MCV RDW Plt Count Lymph % (Auto) [place] % (Auto) Lymph # [place] # Seg Neutrophils % Seg Neuts % (Manual) Lymphocytes % (Manual) Monocytes % (Manual) Nucleated RBC % Seg Neutrophils # Seg Neutrophils # Man Lymphocytes # (Manual) Monocytes # (Manual) APTT POC ABG pH POC ABG pO2 ABG pO2 ABG HCO3 ABG O2 Saturation ABG Base Excess Oxyhemoglobin Sodium Potassium Chloride Carbon Dioxide BUN Creatinine Glucose POC Glucose 208 H 268 H 306 H Lactic Acid Magnesium AST ALT Ammonia Troponin T Total Protein Albumin HDL Cholesterol TSH Salicylates Acetaminophen 12/19/18 12/19/18 12/19/18 11:44 12:30 16:13 WBC Hct MCV RDW Plt Count Lymph % (Auto) [place] % (Auto) Lymph # [place] # Seg Neutrophils % Seg Neuts % (Manual) Lymphocytes % (Manual) Monocytes % (Manual) Nucleated RBC % Seg Neutrophils # Seg Neutrophils # Man Lymphocytes # (Manual) Monocytes # (Manual) APTT POC ABG pH POC ABG pO2 ABG pO2 45.5 L ABG HCO3 41.6 H ABG O2 Saturation 81.0 L ABG Base Excess 13.6 H Oxyhemoglobin 78.6 L Sodium Potassium Chloride Carbon Dioxide BUN Creatinine Glucose POC Glucose 265 H 245 H Lactic Acid Magnesium AST ALT Ammonia Troponin T Total Protein Albumin HDL Cholesterol TSH Salicylates Acetaminophen 12/19/18 12/20/18 12/20/18 21:55 07:09 07:09 WBC Hct MCV 98 H RDW 16.2 H Plt Count 126 L Lymph % (Auto) [place] % (Auto) 12.2 H Lymph # [place] # 0.9 H Seg Neutrophils % Seg Neuts % (Manual) Lymphocytes % (Manual) Monocytes % (Manual) Nucleated RBC % Seg Neutrophils # Seg Neutrophils # Man Lymphocytes # (Manual) Monocytes # (Manual) APTT POC ABG pH POC ABG pO2 ABG pO2 ABG HCO3 ABG O2 Saturation ABG Base Excess Oxyhemoglobin Sodium Potassium 5.1 H Chloride 96.5 L Carbon Dioxide 38 H BUN 26 H Creatinine Glucose 248 H POC Glucose 211 H Lactic Acid Magnesium AST ALT Ammonia Troponin T Total Protein Albumin HDL Cholesterol TSH Salicylates Acetaminophen 12/20/18 12/20/18 12/20/18 07:24 11:43 16:51 WBC Hct MCV RDW Plt Count Lymph % (Auto) [place] % (Auto) Lymph # [place] # Seg Neutrophils % Seg Neuts % (Manual) Lymphocytes % (Manual) Monocytes % (Manual) Nucleated RBC % Seg Neutrophils # Seg Neutrophils # Man Lymphocytes # (Manual) Monocytes # (Manual) APTT POC ABG pH POC ABG pO2 ABG pO2 ABG HCO3 ABG O2 Saturation ABG Base Excess Oxyhemoglobin Sodium Potassium Chloride Carbon Dioxide BUN Creatinine Glucose POC Glucose 223 H 253 H 219 H Lactic Acid Magnesium AST ALT Ammonia Troponin T Total Protein Albumin HDL Cholesterol TSH Salicylates Acetaminophen 12/20/18 12/21/18 12/21/18 21:06 07:49 12:53 WBC Hct MCV RDW Plt Count Lymph % (Auto) [place] % (Auto) Lymph # [place] # Seg Neutrophils % Seg Neuts % (Manual) Lymphocytes % (Manual) Monocytes % (Manual) Nucleated RBC % Seg Neutrophils # Seg Neutrophils # Man Lymphocytes # (Manual) Monocytes # (Manual) APTT POC ABG pH POC ABG pO2 ABG pO2 ABG HCO3 ABG O2 Saturation ABG Base Excess Oxyhemoglobin Sodium Potassium Chloride Carbon Dioxide BUN Creatinine Glucose POC Glucose 197 H 266 H 261 H Lactic Acid Magnesium AST ALT Ammonia Troponin T Total Protein Albumin HDL Cholesterol TSH Salicylates Acetaminophen 12/21/18 16:33 WBC Hct MCV RDW Plt Count Lymph % (Auto) [place] % (Auto) Lymph # [place] # Seg Neutrophils % Seg Neuts % (Manual) Lymphocytes % (Manual) Monocytes % (Manual) Nucleated RBC % Seg Neutrophils # Seg Neutrophils # Man Lymphocytes # (Manual) Monocytes # (Manual) APTT POC ABG pH POC ABG pO2 ABG pO2 ABG HCO3 ABG O2 Saturation ABG Base Excess Oxyhemoglobin Sodium Potassium Chloride Carbon Dioxide BUN Creatinine Glucose POC Glucose 253 H Lactic Acid Magnesium AST ALT Ammonia Troponin T Total Protein Albumin HDL Cholesterol TSH Salicylates Acetaminophen Chest x-ray: report reviewed, image reviewed Additional Studies: CXR 12/21/18 FINDINGS: SUPPORT DEVICES: None. HEART / MEDIASTINUM: No significant abnormality. LUNGS / PLEURA: There is slight midlung atelectasis and minimal bibasilar density unchanged. No effusions are seen. Upper lungs are clear. No pneumothorax. ADDITIONAL FINDINGS: No significant additional findings. IMPRESSION: 1. No significant change
[2018-12-21] MEDS: ROCEPHIN/NS 2 GM/100 ML 2 GM/100 ML BAG IV SCH (18:53)
[2018-12-21] MEDS: DESYREL PO SCH (21:51)
[2018-12-21] MEDS: SENOKOT PO SCH (21:51)
[2018-12-21] MEDS: LANTUS SUB-Q SCH (21:52)
[2018-12-22] MEDS: DUONEB *Not for PRN Use IH SCH ×4 (01:36→21:20)
[2018-12-22] MEDS: ISORDIL TITRADOSE PO SCH ×3 (06:28→23:43)
[2018-12-22] MEDS: LASIX PO SCH (06:29)
[2018-12-22] MEDS: SORBITOL 70% PO SCH ×2 (07:48→19:14)
[2018-12-22] MEDS: PULMICORT IH SCH ×2 (08:16→21:20)
[2018-12-22] MEDS: HumaLOG SUB-Q SCH ×7 (09:06→22:34)
[2018-12-22] MEDS: APRESOLINE PO SCH ×3 (09:07→23:43)
[2018-12-22] MEDS: COREG PO SCH ×2 (09:47→22:35)
[2018-12-22] MEDS: WELLBUTRIN SR PO SCH (09:47)
[2018-12-22] MEDS: ATIVAN PO SCH (09:47)
[2018-12-22] MEDS: PEPCID PO SCH (09:47)
[2018-12-22] MEDS: ECOTRIN PO SCH (09:47)
[2018-12-22] MEDS: DELTASONE PO SCH (09:47)
[2018-12-22] MEDS: NORCO 10/325 PO PRN ×3 (09:48→22:57)
[2018-12-22] MEDS: CLARITIN PO SCH (09:48)
[2018-12-22] MEDS: COZAAR PO SCH (09:48)
[2018-12-22] MEDS: FLONASE NS SCH ×2 (10:42→23:02)
--- NOTE | 2018-12-22 16:05 | Progress Note ---
Assessment and Plan Assessment and plan: Patient is 48-year-old morbidly obese woman with a myraid of medical problems including COPD, obesity, hypoventilation, obstructive sleep apnea, bipolar disorder, congestive heart failure was admitted through emergency room with acute on chronic hypoxic hypercapnic respiratory failure Requiring BiPAP and CPAP, --Acute on chronic hypoxic, hypercapnic respiratory failure; Secondary to acute exacerbation of COPD ,Oxygen titrate O2 sats to more than 90%, BIPAP 20/10, rate 16 as standby in the room. Venturri mask, FiO2 50%. O2 saturation 98%. Discussed with Respiratory therapy about changing to NC --Acute exacerbation of COPD; Oxygen, nebulizers, tapering doses of IV steroids, IV antibiotics Inhalation steroids, pulmonary consult if needed --Hypertension; moderate control Continue current antihypertensives and when necessary medications --Acute kidney injury; vasomotor nephropathy, closely monitor renal function Avoid nephrotoxins, nephrology consult if no improvement --Hyperkalemia: Kayexalate, monitor K levels check labs --History of congestive heart failure; EF 40-45% in April 2018 Continue diuretics, beta blockers, alo inhibitors Input-output monitoring, low sodium diet, cardiology evaluation if needed --Type 2 diabetes mellitus; uncontrolled on insulin, A1c 10.4[6 months ago] Accu-Chek sliding scale coverage and ADA diet insulin as needed Diabetic education, nutrition consult if needed --Dyslipidemia; continue statin, low-cholesterol diet --Morbid obesity; BMI 53 Patient would benefit by Bariatric surgical weight reduction program When medically stable, outpatient evaluation at discharge --Nonspecific elevation of troponins; probably NSTEMI type2 She denies chest pain, closely monitor --Lactic acidosis; supportive care -Functional quadriplegia, poa consult PT --DVT prophylaxis; Lovenox --Full CODE STATUS --DC planning with case management Disposition; discharged back to [facility] when medically stable, today she was hypoxic History Interval history: Patient seen and examined, continues on Venturi mask. No new complaints Hospitalist Physical - Physical exam Narrative exam: Gen: chronic ill appearing, bmi 53, Mild increase accessory muscles, Awake, Alert, Orientated HEENT: NCAT, EOMI, PERRL, OP Clear Neck: supple, no adenopathy, no thyromegaly, no JVD CVS/Heart: RRR, normal S1S2, pulses present bilaterally Chest/Lungs: diminished bd bilateral, Symmetrical chest expansion, good air entry bilaterally GI/Abdomen: soft, NTND, good bowel sounds, no guarding or rebound /Bladder: no suprapubic tenderness, no CVA or paraspinal tenderness Extermity/Skin: no c/c/e, no obvious rash MSK: FROM x 4 Neuro: CN 2-12 grossly intact, no new focal deficits Psych: calm - Constitutional Vitals: Temp Pulse Resp BP Pulse Ox 98.5 F 95 H 28 H 106/65 97 12/21/18 23:57 12/22/18 14:00 12/22/18 15:36 12/22/18 15:38 12/22/18 10:00 General appearance: Present: mild distress, well-nourished, obese (morbidly obese) Results - Labs CBC & Chem 7: 12/20/18 07:09 12/20/18 07:09 Labs: Laboratory Last Values WBC 7.4 K/mm3 (4.5-11.0) 12/20/18 07:09 RBC 4.38 M/mm3 (3.65-5.03) 12/20/18 07:09 Hgb 13.8 gm/dl (10.1-14.3) 12/20/18 07:09 Hct 42.9 % (30.3-42.9) 12/20/18 07:09 MCV 98 fl (79-97) H 12/20/18 07:09 MCH 31 pg (28-32) 12/20/18 07:09 MCHC 32 % (30-34) 12/20/18 07:09 RDW 16.2 % (13.2-15.2) H 12/20/18 07:09 Plt Count 126 K/mm3 (140-440) L 12/20/18 07:09 Lymph % (Auto) 21.0 % (13.4-35.0) 12/20/18 07:09 [place] % (Auto) 12.2 % (0.0-7.3) H 12/20/18 07:09 Eos % (Auto) 0.4 % (0.0-4.3) 12/20/18 07:09 Baso % (Auto) 0.5 % (0.0-1.8) 12/20/18 07:09 Lymph # 1.5 K/mm3 (1.2-5.4) 12/20/18 07:09 [place] # 0.9 K/mm3 (0.0-0.8) H 12/20/18 07:09 Eos # 0.0 K/mm3 (0.0-0.4) 12/20/18 07:09 Baso # 0.0 K/mm3 (0.0-0.1) 12/20/18 07:09 Add Manual Diff Complete 12/14/18 06:00 Total Counted 100 12/14/18 06:00 Seg Neutrophils % 65.9 % (40.0-70.0) 12/20/18 07:09 Seg Neuts % (Manual) 87.0 % (40.0-70.0) H 12/14/18 06:00 1.0 % 12/14/18 06:00 2.0 % (13.4-35.0) L 12/14/18 06:00 Reactive Lymphs % (Man) 0 % 12/14/18 06:00 10.0 % (0.0-7.3) H 12/14/18 06:00 0 % (0.0-4.3) 12/14/18 06:00 0 % (0.0-1.8) 12/14/18 06:00 0 % 12/14/18 06:00 0 % 12/14/18 06:00 0 % 12/14/18 06:00 0 % 12/14/18 06:00 Nucleated RBC % 3.0 % (0.0-0.9) H 12/14/18 06:00 Seg Neutrophils # 4.9 K/mm3 (1.8-7.7) 12/20/18 07:09 Seg Neutrophils # Man 13.2 K/mm3 (1.8-7.7) H 12/14/18 06:00 Band Neutrophils # 0.2 K/mm3 12/14/18 06:00 0.3 K/mm3 (1.2-5.4) L 12/14/18 06:00 Abs React Lymphs (Man) 0.0 K/mm3 12/14/18 06:00 1.5 K/mm3 (0.0-0.8) H 12/14/18 06:00 0.0 K/mm3 (0.0-0.4) 12/14/18 06:00 0.0 K/mm3 (0.0-0.1) 12/14/18 06:00 0.0 K/mm3 12/14/18 06:00 0.0 K/mm3 12/14/18 06:00 0.0 K/mm3 12/14/18 06:00 Blast Cells # 0.0 K/mm3 12/14/18 06:00 WBC Morphology Not Reportable 12/14/18 06:00 Hypersegmented Neuts Not Reportable 12/14/18 06:00 Hyposegmented Neuts Not Reportable 12/14/18 06:00 Hypogranular Neuts Not Reportable 12/14/18 06:00 Not Reportable 12/14/18 06:00 Not Reportable 12/14/18 06:00 Not Reportable 12/14/18 06:00 Not Reportable 12/14/18 06:00 Not Reportable 12/14/18 06:00 Not Reportable 12/14/18 06:00 Consistent w auto 12/14/18 06:00 Not Reportable 12/14/18 06:00 Plt Clumps, EDTA Not Reportable 12/14/18 06:00 Not Reportable 12/14/18 06:00 Not Reportable 12/14/18 06:00 Not Reportable 12/14/18 06:00 Plt Morphology Comment Not Reportable 12/14/18 06:00 RBC Morphology Not Reportable 12/14/18 06:00 Dimorphic RBCs Not Reportable 12/14/18 06:00 Few 12/14/18 06:00 Not Reportable 12/14/18 06:00 Not Reportable 12/14/18 06:00 1+ 12/14/18 06:00 Not Reportable 12/14/18 06:00 1+ 12/14/18 06:00 Not Reportable 12/14/18 06:00 Not Reportable 12/14/18 06:00 Not Reportable 12/14/18 06:00 Not Reportable 12/14/18 06:00 Few 12/14/18 06:00 Not Reportable 12/14/18 06:00 Not Reportable 12/14/18 06:00 Not Reportable 12/14/18 06:00 Not Reportable 12/14/18 06:00 Not Reportable 12/14/18 06:00 Not Reportable 12/14/18 06:00 Not Reportable 12/14/18 06:00 Not Reportable 12/14/18 06:00 Acanthocytes (Spur) Not Reportable 12/14/18 06:00 Rouleaux Not Reportable 12/14/18 06:00 Not Reportable 12/14/18 06:00 Not Reportable 12/14/18 06:00 Not Reportable 12/14/18 06:00 Not Reportable 12/14/18 06:00 Hem Pathologist Commnt No 12/14/18 06:00 PT 13.5 Sec. (12.2-14.9) 12/14/18 06:45 INR 1.06 (0.87-1.13) 12/14/18 06:45 APTT 22.8 Sec. (24.2-36.6) L 12/14/18 06:45 POC ABG pH 7.324 (7.35-7.45) L 12/18/18 15:03 ABG pH 7.403 pH Units (7.350-7.450) 12/19/18 12:30 ABG pCO2 68.3 mm Hg 12/19/18 12:30 POC ABG pO2 51 (80-105) L 12/18/18 15:03 ABG pO2 45.5 mm Hg (80.0-90.0) L 12/19/18 12:30 POC ABG HCO3 43.3 (22-26 mml/L) 12/18/18 15:03 ABG HCO3 41.6 mmol/L (20.0-26.0) H 12/19/18 12:30 POC ABG Total CO2 46 (23-27mmol/L) 12/18/18 15:03 POC ABG O2 Sat 80 12/18/18 15:03 ABG O2 Saturation 81.0 % (95.0-99.0) L 12/19/18 12:30 ABG O2 Content 15.1 (0.0-44) 12/19/18 12:30 POC ABG Base Excess 17 ((-2) - (+3)mmol/L) 12/18/18 15:03 ABG Base Excess 13.6 mmol/L (-2.0-3.0) H 12/19/18 12:30 ABG Hemoglobin 13.7 gm/dl (12.0-16.0) 12/19/18 12:30 ABG Carboxyhemoglobin 2.2 % (0.0-5.0) 12/19/18 12:30 ABG Methemoglobin 0.6 % (0.0-1.5) 12/19/18 12:30 78.6 % (95.0-99.0) L 12/19/18 12:30 32 % 12/19/18 12:30 Sodium 144 mmol/L (137-145) 12/20/18 07:09 Potassium 5.1 mmol/L (3.6-5.0) H 12/20/18 07:09 Chloride 96.5 mmol/L (98-107) L 12/20/18 07:09 Carbon Dioxide 38 mmol/L (22-30) H 12/20/18 07:09 15 mmol/L 12/20/18 07:09 BUN 26 mg/dL (7-17) H 12/20/18 07:09 0.9 mg/dL (0.7-1.2) 12/20/18 07:09 Estimated GFR > 60 ml/min 12/20/18 07:09 29 % 12/20/18 07:09 Glucose 248 mg/dL (65-100) H 12/20/18 07:09 POC Glucose 184 (70-105) H 12/22/18 12:29 Lactic Acid 2.20 mmol/L (0.7-2.0) H* 12/14/18 09:52 Calcium 9.0 mg/dL (8.4-10.2) 12/20/18 07:09 Magnesium 2.80 mg/dL (1.7-2.3) H 12/18/18 05:37 0.20 mg/dL (0.1-1.2) 12/16/18 05:59 AST 33 units/L (5-40) 12/16/18 05:59 ALT 87 units/L (7-56) H 12/16/18 05:59 58 units/L (35-129) 12/16/18 05:59 86.0 umol/L (25-60) H 12/14/18 06:45 0.178 ng/mL (0.00-0.029) H* 12/14/18 06:00 6.0 g/dL (6.3-8.2) L 12/16/18 05:59 3.2 g/dL (3.9-5) L 12/16/18 05:59 1.1 % 12/16/18 05:59 Triglycerides 100 mg/dL (2-149) 12/14/18 06:00 Cholesterol 169 mg/dL (50-199) 12/14/18 06:00 84 mg/dL (50-130) 12/14/18 06:00 82 mg/dL (40-59) H 12/14/18 06:00 2.06 % 12/14/18 06:00 TSH 6.220 mlU/mL (0.270-4.200) H 12/14/18 06:00 Free T4 0.77 ng/dL (0.76-1.46) 12/14/18 07:46 Yellow (Yellow) 12/14/18 12:58 Slightly-cloudy (Clear) 12/14/18 12:58 5.0 (5.0-7.0) 12/14/18 12:58 Ur Specific [place] 1.018 (1.003-1.030) 12/14/18 12:58 >2000 mg dl mg/dL (Negative) 12/14/18 12:58 >=500 mg/dL (Negative) 12/14/18 12:58 Neg mg/dL (Negative) 12/14/18 12:58 Neg (Negative) 12/14/18 12:58 Neg (Negative) 12/14/18 12:58 Neg (Negative) 12/14/18 12:58 < 2.0 mg/dL (<2.0) 12/14/18 12:58 Ur Leukocyte Esterase Neg (Negative) 12/14/18 12:58 4.0 /HPF (0.0-6.0) 12/14/18 12:58 2.0 /HPF (0.0-6.0) 12/14/18 12:58 U Epithel Cells (Auto) 1.0 /HPF (0-13.0) 12/14/18 12:58 Few /HPF 12/14/18 12:58 Salicylates < 0.3 mg/dL (2.8-20.0) L 12/14/18 06:00 Presumptive negative 12/14/18 12:58 Presumptive negative 12/14/18 12:58 Acetaminophen < 5.0 ug/mL (10.0-30.0) L 12/14/18 06:00 Ur Barbiturates Screen Presumptive negative 12/14/18 12:58 Ur Phencyclidine Scrn Presumptive negative 12/14/18 12:58 Ur Amphetamines Screen Presumptive negative 12/14/18 12:58 U Benzodiazepines Scrn Presumptive negative 12/14/18 12:58 Presumptive negative 12/14/18 12:58 U Marijuana (THC) Screen Presumptive negative 12/14/18 12:58 Disclamer 12/14/18 12:58 Plasma/Serum Alcohol < 0.01 % (0-0.07) 12/14/18 06:00 Active Medications - Current Medications Current Medications: Generic Name Dose Route Start Last Admin Trade Name Freq PRN Reason Stop Dose Admin Acetaminophen 325 mg 12/14/18 16:54 12/19/18 09:10 Tylenol PO 325 mg Q6H PRN Administration Pain, Mild (1-3) Acetaminophen/Hydrocodone Bitart 1 each 12/14/18 17:00 12/22/18 15:36 [place] 10/325 PO 1 each Q4H PRN Administration Pain , Severe (7-10) Albuterol 2.5 mg 12/14/18 16:54 12/20/18 09:15 Proventil IH 2.5 mg Q3HRT PRN Administration Shortness Of Breath Albuterol/Ipratropium 1 ampul 12/14/18 20:00 12/22/18 15:22 Duoneb *Not For Prn Use* IH 1 ampul Q6HRT JOE Administration Aspirin 325 mg 12/15/18 10:00 12/22/18 09:47 Ecotrin PO 325 mg DAILY JOE Administration Atorvastatin Calcium 40 mg 12/14/18 22:00 12/21/18 21:51 Lipitor PO 40 mg QHS JOE Administration Budesonide 0.5 mg 12/14/18 20:00 12/22/18 08:16 Pulmicort IH 0.5 mg Q12HRT JOE Administration Bupropion HCl 100 mg 12/14/18 18:00 12/22/18 09:47 Wellbutrin Sr PO 100 mg DAILY JOE Administration Carbamazepine 200 mg 12/14/18 18:00 12/22/18 09:47 Tegretol PO 200 mg DAILY JOE Administration Carvedilol 6.25 mg 12/14/18 22:00 12/22/18 09:47 Coreg PO 6.25 mg BID JOE Administration Dextrose 50 ml 12/15/18 23:06 D50w (25gm) Syringe IV PRN PRN Hypoglycemia Famotidine 20 mg 12/14/18 18:00 12/22/18 09:47 Pepcid PO 20 mg DAILY JOE Administration Fluticasone Propionate 50 mcg 12/14/18 22:00 12/21/18 21:58 Flonase NS 50 mcg BID JOE Administration Furosemide 20 mg 12/14/18 18:00 12/22/18 06:29 Lasix PO 20 mg DAILY@0600 JOE Administration Heparin Sodium (Porcine) 5,000 unit 12/22/18 22:00 Heparin SUB-Q Q8HR JOE Hydralazine HCl 37.5 mg 12/14/18 17:00 12/22/18 15:38 Apresoline PO Not Given Q8H JOE Hydralazine HCl 10 mg 12/20/18 14:26 Apresoline IV Q4HR PRN Blood Pressure Ceftriaxone Sodium 2 gm in 100 mls @ 200 mls/hr 12/14/18 19:30 12/21/18 18:53 Rocephin/Ns 2 Gm/100 Ml IV 200 mls/hr Q24H JOE Administration Protocol Insulin Glargine 30 units 12/19/18 22:00 12/21/18 21:52 Lantus SUB-Q 30 units QHS JOE Administration Insulin Human Lispro 0 unit 12/16/18 00:00 12/22/18 12:41 Humalog SUB-Q 2 unit ACHS JOE Administration Protocol Insulin Human Lispro 5 unit 12/17/18 16:30 12/22/18 12:41 Humalog SUB-Q 5 unit AC [facility] Administration Isosorbide Dinitrate 20 mg 12/14/18 17:00 12/22/18 15:38 Isordil Titradose PO Not Given Q8H JOE Loratadine 10 mg 12/14/18 18:00 12/22/18 09:48 Claritin PO 10 mg DAILY JOE Administration Lorazepam 0.5 mg 12/14/18 18:00 12/22/18 09:47 Ativan PO 0.5 mg DAILY JOE Administration Losartan Potassium 50 mg 12/14/18 18:00 12/22/18 09:48 Cozaar PO 50 mg QDAY JOE Administration Montelukast Sodium 10 mg 12/14/18 18:00 12/21/18 17:09 Singulair PO 10 mg QPM JOE Administration Polyethylene Glycol 17 gm 12/14/18 17:00 Miralax 3350 PO QDAY PRN Constipation Prednisone 30 mg 12/21/18 10:00 12/22/18 09:47 Deltasone PO 30 mg QDAY JOE Administration Quetiapine Fumarate 300 mg 12/19/18 22:00 12/22/18 09:47 Seroquel PO 300 mg BID JOE Administration Senna 17.2 mg 12/14/18 22:00 12/21/18 21:51 Senokot PO 17.2 mg HS JOE Administration Sorbitol 30 ml 12/14/18 18:00 12/22/18 07:48 Sorbitol 70% PO Not Given Q12H JOE Trazodone HCl 50 mg 12/14/18 22:00 12/21/18 21:51 Desyrel PO 50 mg QHS JOE Administration Nutrition/Malnutrition Assess - Dietary Evaluation Nutrition/Malnutrition Findings: Nutrition Notes Start: 12/18/18 14:51 Freq: Status: Active Protocol: Document 12/21/18 12:55 RS (Rec: 12/21/18 13:10 RS [id number]) Co-Sign 12/21/18 12:55 LP Nutrition Notes Need for Assessment generated from: LOS Initial or Follow up Brief Note Subjective/Other Information Screen for LOS Pt consuming 100% of meals Nutrition Intervention Revisit per MD consult or patient Sign Off request: - Attestation Statement I have reviewed and agreed w/ Malnutrition eval & tx plan: Yes
--- NOTE | 2018-12-22 17:49 | Progress Note ---
Assessment and Plan Patient alert and awake. Resting on Venturri mask, FiO2 50%. O2 saturation 97%. No acute respiratory distress. BIPAP 20/10, rate 16 as standby in the room. Recommend physical therapy consultation for OOB in chair as tolerated. - Patient Problems (1) Acute and chronic respiratory failure with hypercapnia Current Visit: No Status: Acute Plan to address problem: 1. Patient is on BIPAP 20/10, rate 16, FiO2 35%. 2. Albuterol and Atrovent q 6 hrs 3. Continue Prednisone 4. Continue Ceftriaxone. 5. SCDs for DVT prophylaxis 6. Continue famotidine. (2) Morbid obesity with BMI of 50.0-59.9, adult Current Visit: Yes Status: Acute Plan to address problem: Recommend weight loss and exercise and diet modification. (3) COPD exacerbation Current Visit: Yes Status: Acute Plan to address problem: 1. Patient is on BIPAP 20/10, rate 16, FiO2 35%. 2. Albuterol and Atrovent q 6 hrs 3. Continue Prednisone 4. Continue Ceftriaxone. 5. SCDs for DVT prophylaxis 6. Continue famotidine. 7. Recommend PFTs as outpatient. (4) Obesity hypoventilation syndrome Current Visit: Yes Status: Acute Plan to address problem: BIPAP 20/10, rate 16, FiO2 35%. (5) Acute on chronic systolic heart failure Current Visit: No Status: Acute Plan to address problem: Management as per primary care and cardiology. (6) Sleep apnea syndrome Current Visit: No Status: Acute Plan to address problem: Patient is on home CPAP. Recommend weight loss and discussed sleep hygiene. (7) Hypertension Current Visit: No Status: Chronic Qualifiers: Plan to address problem: Management as per primary care. (8) T2DM (type 2 diabetes mellitus) Current Visit: No Status: Chronic Plan to address problem: Management as per primary care. Subjective Date of service: 12/22/18 Interval history: Patient alert and awake. Resting on Venturri mask, FiO2 50%. O2 saturation 97%. No acute respiratory distress. BIPAP 20/10, rate 16 as standby in the room. Recommend physical therapy consultation for OOB in chair as tolerated. Objective Vital Signs - 12hr 12/22/18 12/22/18 12/22/18 06:28 08:00 09:47 Pulse Rate 79 93 H Pulse Rate [ 94 H Anterior Bilateral Throughout] Pulse Rate [ 96 H Anterior] Respiratory Rate Respiratory 20 Rate [Anterior Bilateral Throughout] Respiratory 20 Rate [Anterior] Blood Pressure 134/78 O2 Sat by Pulse Oximetry 12/22/18 12/22/18 12/22/18 09:48 10:00 14:00 Pulse Rate 85 Pulse Rate [ 96 H Anterior Bilateral Throughout] Pulse Rate [ 95 H Anterior] Respiratory 26 H 26 H Rate Respiratory 20 Rate [Anterior Bilateral Throughout] Respiratory 20 Rate [Anterior] Blood Pressure 132/79 O2 Sat by Pulse 97 Oximetry 12/22/18 12/22/18 15:36 15:38 Pulse Rate Pulse Rate [ Anterior Bilateral Throughout] Pulse Rate [ Anterior] Respiratory 28 H Rate Respiratory Rate [Anterior Bilateral Throughout] Respiratory Rate [Anterior] Blood Pressure 106/65 O2 Sat by Pulse Oximetry Constitutional: no acute distress, alert, other (morbidly obese) Eyes: non-icteric ENT: oropharynx moist Neck: supple Ascultation: Bilateral: diminished breath sounds Cardiovascular: regular rate and rhythm Gastrointestinal: normoactive bowel sounds Integumentary: normal Extremities: no cyanosis Neurologic: normal mental status Psychiatric: mood appropriate, affect normal CBC and BMP: 12/20/18 07:09 12/20/18 07:09 ABG, PT/INR, D-dimer: ABG POC ABG pH 7.324 (7.35-7.45) L 12/18/18 15:03 ABG pH 7.403 pH Units (7.350-7.450) 12/19/18 12:30 ABG pCO2 68.3 mm Hg 12/19/18 12:30 POC ABG pO2 51 (80-105) L 12/18/18 15:03 ABG pO2 45.5 mm Hg (80.0-90.0) L 12/19/18 12:30 POC ABG HCO3 43.3 (22-26 mml/L) 12/18/18 15:03 POC ABG Total CO2 46 (23-27mmol/L) 12/18/18 15:03 POC ABG O2 Sat 80 12/18/18 15:03 ABG O2 Saturation 81.0 % (95.0-99.0) L 12/19/18 12:30 PT/INR, D-dimer PT 13.5 Sec. (12.2-14.9) 12/14/18 06:45 INR 1.06 (0.87-1.13) 12/14/18 06:45 Abnormal lab findings: Abnormal Labs 12/14/18 12/14/18 12/14/18 06:00 06:00 06:00 WBC 15.2 H Hct 45.4 H MCV 101 H RDW 17.5 H Plt Count Lymph % (Auto) Mcintosh % (Auto) 9.6 H Lymph # Mcintosh # 1.5 H Seg Neutrophils % 77.0 H Seg Neuts % (Manual) 87.0 H Lymphocytes % (Manual) 2.0 L Monocytes % (Manual) 10.0 H Nucleated RBC % 3.0 H Seg Neutrophils # 11.7 H Seg Neutrophils # Man 13.2 H Lymphocytes # (Manual) 0.3 L Monocytes # (Manual) 1.5 H APTT POC ABG pH POC ABG pO2 ABG pO2 ABG HCO3 ABG O2 Saturation ABG Base Excess Oxyhemoglobin Sodium 135 L Potassium 5.4 H Chloride 90.4 L Carbon Dioxide 32 H BUN 21 H Creatinine 1.6 H Glucose 380 H POC Glucose Lactic Acid Magnesium AST 58 H ALT Ammonia Troponin T 0.178 H* Total Protein 5.8 L Albumin 3.5 L HDL Cholesterol 82 H TSH 6.220 H Salicylates Acetaminophen 12/14/18 12/14/18 12/14/18 06:00 06:00 06:03 WBC Hct MCV RDW Plt Count Lymph % (Auto) Mcintosh % (Auto) Lymph # Mcintosh # Seg Neutrophils % Seg Neuts % (Manual) Lymphocytes % (Manual) Monocytes % (Manual) Nucleated RBC % Seg Neutrophils # Seg Neutrophils # Man Lymphocytes # (Manual) Monocytes # (Manual) APTT POC ABG pH POC ABG pO2 ABG pO2 ABG HCO3 ABG O2 Saturation ABG Base Excess Oxyhemoglobin Sodium Potassium Chloride Carbon Dioxide BUN Creatinine Glucose POC Glucose 266 H Lactic Acid Magnesium AST ALT Ammonia Troponin T Total Protein Albumin HDL Cholesterol TSH Salicylates < 0.3 L Acetaminophen < 5.0 L 12/14/18 12/14/18 12/14/18 06:45 06:45 07:31 WBC Hct MCV RDW Plt Count Lymph % (Auto) Mcintosh % (Auto) Lymph # Mcintosh # Seg Neutrophils % Seg Neuts % (Manual) Lymphocytes % (Manual) Monocytes % (Manual) Nucleated RBC % Seg Neutrophils # Seg Neutrophils # Man Lymphocytes # (Manual) Monocytes # (Manual) APTT 22.8 L POC ABG pH 7.153 L POC ABG pO2 122 H ABG pO2 ABG HCO3 ABG O2 Saturation ABG Base Excess Oxyhemoglobin Sodium Potassium Chloride Carbon Dioxide BUN Creatinine Glucose POC Glucose Lactic Acid Magnesium AST ALT Ammonia 86.0 H Troponin T Total Protein Albumin HDL Cholesterol TSH Salicylates Acetaminophen 12/14/18 12/14/18 12/14/18 07:46 09:52 09:57 WBC Hct MCV RDW Plt Count Lymph % (Auto) Mc[place]osh % (Auto) Lymph # Mcintosh # Seg Neutrophils % Seg Neuts % (Manual) Lymphocytes % (Manual) Monocytes % (Manual) Nucleated RBC % Seg Neutrophils # Seg Neutrophils # Man Lymphocytes # (Manual) Monocytes # (Manual) APTT POC ABG pH 7.269 L POC ABG pO2 63 L ABG pO2 ABG HCO3 ABG O2 Saturation ABG Base Excess Oxyhemoglobin Sodium Potassium Chloride Carbon Dioxide BUN Creatinine Glucose POC Glucose Lactic Acid 2.40 H* 2.20 H* Magnesium AST ALT Ammonia Troponin T Total Protein Albumin HDL Cholesterol TSH Salicylates Acetaminophen 12/14/18 12/15/18 12/15/18 17:51 12:14 22:38 WBC Hct MCV RDW Plt Count Lymph % (Auto) Mc[place]osh % (Auto) Lymph # Mcintosh # Seg Neutrophils % Seg Neuts % (Manual) Lymphocytes % (Manual) Monocytes % (Manual) Nucleated RBC % Seg Neutrophils # Seg Neutrophils # Man Lymphocytes # (Manual) Monocytes # (Manual) APTT POC ABG pH 7.293 L POC ABG pO2 73 L ABG pO2 ABG HCO3 ABG O2 Saturation ABG Base Excess Oxyhemoglobin Sodium Potassium Chloride Carbon Dioxide BUN Creatinine Glucose POC Glucose 247 H 376 H Lactic Acid Magnesium AST ALT Ammonia Troponin T Total Protein Albumin HDL Cholesterol TSH Salicylates Acetaminophen 12/16/18 12/16/18 12/16/18 05:59 05:59 08:16 WBC Hct MCV 99 H RDW 16.6 H Plt Count 114 L Lymph % (Auto) 8.1 L Mcintosh % (Auto) Lymph # 0.7 L Mcintosh # Seg Neutrophils % 84.2 H Seg Neuts % (Manual) Lymphocytes % (Manual) Monocytes % (Manual) Nucleated RBC % Seg Neutrophils # Seg Neutrophils # Man Lymphocytes # (Manual) Monocytes # (Manual) APTT POC ABG pH POC ABG pO2 ABG pO2 ABG HCO3 ABG O2 Saturation ABG Base Excess Oxyhemoglobin Sodium Potassium 5.4 H Chloride 96.0 L Carbon Dioxide 40 H D BUN 27 H Creatinine Glucose 355 H POC Glucose 305 H Lactic Acid Magnesium AST ALT 87 H Ammonia Troponin T Total Protein 6.0 L Albumin 3.2 L HDL Cholesterol TSH Salicylates Acetaminophen 12/16/18 12/16/18 12/16/18 11:45 16:22 21:15 WBC Hct MCV RDW Plt Count Lymph % (Auto) Mcintosh % (Auto) Lymph # Mcintosh # Seg Neutrophils % Seg Neuts % (Manual) Lymphocytes % (Manual) Monocytes % (Manual) Nucleated RBC % Seg Neutrophils # Seg Neutrophils # Man Lymphocytes # (Manual) Monocytes # (Manual) APTT POC ABG pH POC ABG pO2 ABG pO2 ABG HCO3 ABG O2 Saturation ABG Base Excess Oxyhemoglobin Sodium Potassium Chloride Carbon Dioxide BUN Creatinine Glucose POC Glucose 361 H 265 H 254 H Lactic Acid Magnesium AST ALT Ammonia Troponin T Total Protein Albumin HDL Cholesterol TSH Salicylates Acetaminophen 12/17/18 12/17/18 12/17/18 08:43 12:03 16:58 WBC Hct MCV RDW Plt Count Lymph % (Auto) [place]osh % (Auto) Lymph # Mcintosh # Seg Neutrophils % Seg Neuts % (Manual) Lymphocytes % (Manual) Monocytes % (Manual) Nucleated RBC % Seg Neutrophils # Seg Neutrophils # Man Lymphocytes # (Manual) Monocytes # (Manual) APTT POC ABG pH POC ABG pO2 ABG pO2 ABG HCO3 ABG O2 Saturation ABG Base Excess Oxyhemoglobin Sodium Potassium 5.6 H Chloride 96.4 L Carbon Dioxide 38 H BUN 25 H Creatinine Glucose 266 H POC Glucose 265 H 343 H Lactic Acid Magnesium AST ALT Ammonia Troponin T Total Protein Albumin HDL Cholesterol TSH Salicylates Acetaminophen 12/17/18 12/17/18 12/18/18 17:16 21:47 05:37 WBC Hct MCV RDW Plt Count Lymph % (Auto) Mcintosh % (Auto) Lymph # Mcintosh # Seg Neutrophils % Seg Neuts % (Manual) Lymphocytes % (Manual) Monocytes % (Manual) Nucleated RBC % Seg Neutrophils # Seg Neutrophils # Man Lymphocytes # (Manual) Monocytes # (Manual) APTT POC ABG pH POC ABG pO2 ABG pO2 ABG HCO3 ABG O2 Saturation ABG Base Excess Oxyhemoglobin Sodium Potassium 5.9 H Chloride 97.3 L Carbon Dioxide 33 H BUN 24 H Creatinine Glucose 259 H POC Glucose 251 H 304 H Lactic Acid Magnesium 2.80 H AST ALT Ammonia Troponin T Total Protein Albumin HDL Cholesterol TSH Salicylates Acetaminophen 12/18/18 12/18/18 12/18/18 07:38 11:36 15:03 WBC Hct MCV RDW Plt Count Lymph % (Auto) [place]osh % (Auto) Lymph # Mcintosh # Seg Neutrophils % Seg Neuts % (Manual) Lymphocytes % (Manual) Monocytes % (Manual) Nucleated RBC % Seg Neutrophils # Seg Neutrophils # Man Lymphocytes # (Manual) Monocytes # (Manual) APTT POC ABG pH 7.324 L POC ABG pO2 51 L ABG pO2 ABG HCO3 ABG O2 Saturation ABG Base Excess Oxyhemoglobin Sodium Potassium Chloride Carbon Dioxide BUN Creatinine Glucose POC Glucose 288 H 326 H Lactic Acid Magnesium AST ALT Ammonia Troponin T Total Protein Albumin HDL Cholesterol TSH Salicylates Acetaminophen 12/18/18 12/18/18 12/19/18 17:08 21:15 08:17 WBC Hct MCV RDW Plt Count Lymph % (Auto) [place]osh % (Auto) Lymph # Mcintosh # Seg Neutrophils % Seg Neuts % (Manual) Lymphocytes % (Manual) Monocytes % (Manual) Nucleated RBC % Seg Neutrophils # Seg Neutrophils # Man Lymphocytes # (Manual) Monocytes # (Manual) APTT POC ABG pH POC ABG pO2 ABG pO2 ABG HCO3 ABG O2 Saturation ABG Base Excess Oxyhemoglobin Sodium Potassium Chloride Carbon Dioxide BUN Creatinine Glucose POC Glucose 208 H 268 H 306 H Lactic Acid Magnesium AST ALT Ammonia Troponin T Total Protein Albumin HDL Cholesterol TSH Salicylates Acetaminophen 12/19/18 12/19/18 12/19/18 11:44 12:30 16:13 WBC Hct MCV RDW Plt Count Lymph % (Auto) [place]osh % (Auto) Lymph # Mcintosh # Seg Neutrophils % Seg Neuts % (Manual) Lymphocytes % (Manual) Monocytes % (Manual) Nucleated RBC % Seg Neutrophils # Seg Neutrophils # Man Lymphocytes # (Manual) Monocytes # (Manual) APTT POC ABG pH POC ABG pO2 ABG pO2 45.5 L ABG HCO3 41.6 H ABG O2 Saturation 81.0 L ABG Base Excess 13.6 H Oxyhemoglobin 78.6 L Sodium Potassium Chloride Carbon Dioxide BUN Creatinine Glucose POC Glucose 265 H 245 H Lactic Acid Magnesium AST ALT Ammonia Troponin T Total Protein Albumin HDL Cholesterol TSH Salicylates Acetaminophen 12/19/18 12/20/18 12/20/18 21:55 07:09 07:09 WBC Hct MCV 98 H RDW 16.2 H Plt Count 126 L Lymph % (Auto) Mcintosh % (Auto) 12.2 H Lymph # Mcintosh # 0.9 H Seg Neutrophils % Seg Neuts % (Manual) Lymphocytes % (Manual) Monocytes % (Manual) Nucleated RBC % Seg Neutrophils # Seg Neutrophils # Man Lymphocytes # (Manual) Monocytes # (Manual) APTT POC ABG pH POC ABG pO2 ABG pO2 ABG HCO3 ABG O2 Saturation ABG Base Excess Oxyhemoglobin Sodium Potassium 5.1 H Chloride 96.5 L Carbon Dioxide 38 H BUN 26 H Creatinine Glucose 248 H POC Glucose 211 H Lactic Acid Magnesium AST ALT Ammonia Troponin T Total Protein Albumin HDL Cholesterol TSH Salicylates Acetaminophen 12/20/18 12/20/18 12/20/18 07:24 11:43 16:51 WBC Hct MCV RDW Plt Count Lymph % (Auto) [place]osh % (Auto) Lymph # Mcintosh # Seg Neutrophils % Seg Neuts % (Manual) Lymphocytes % (Manual) Monocytes % (Manual) Nucleated RBC % Seg Neutrophils # Seg Neutrophils # Man Lymphocytes # (Manual) Monocytes # (Manual) APTT POC ABG pH POC ABG pO2 ABG pO2 ABG HCO3 ABG O2 Saturation ABG Base Excess Oxyhemoglobin Sodium Potassium Chloride Carbon Dioxide BUN Creatinine Glucose POC Glucose 223 H 253 H 219 H Lactic Acid Magnesium AST ALT Ammonia Troponin T Total Protein Albumin HDL Cholesterol TSH Salicylates Acetaminophen 12/20/18 12/21/18 12/21/18 21:06 07:49 12:53 WBC Hct MCV RDW Plt Count Lymph % (Auto) [place]osh % (Auto) Lymph # Mcintosh # Seg Neutrophils % Seg Neuts % (Manual) Lymphocytes % (Manual) Monocytes % (Manual) Nucleated RBC % Seg Neutrophils # Seg Neutrophils # Man Lymphocytes # (Manual) Monocytes # (Manual) APTT POC ABG pH POC ABG pO2 ABG pO2 ABG HCO3 ABG O2 Saturation ABG Base Excess Oxyhemoglobin Sodium Potassium Chloride Carbon Dioxide BUN Creatinine Glucose POC Glucose 197 H 266 H 261 H Lactic Acid Magnesium AST ALT Ammonia Troponin T Total Protein Albumin HDL Cholesterol TSH Salicylates Acetaminophen 12/21/18 12/21/18 12/22/18 16:33 20:57 08:24 WBC Hct MCV RDW Plt Count Lymph % (Auto) [place]osh % (Auto) Lymph # [place]osh # Seg Neutrophils % Seg Neuts % (Manual) Lymphocytes % (Manual) Monocytes % (Manual) Nucleated RBC % Seg Neutrophils # Seg Neutrophils # Man Lymphocytes # (Manual) Monocytes # (Manual) APTT POC ABG pH POC ABG pO2 ABG pO2 ABG HCO3 ABG O2 Saturation ABG Base Excess Oxyhemoglobin Sodium Potassium Chloride Carbon Dioxide BUN Creatinine Glucose POC Glucose 253 H 238 H 229 H Lactic Acid Magnesium AST ALT Ammonia Troponin T Total Protein Albumin HDL Cholesterol TSH Salicylates Acetaminophen 12/22/18 12/22/18 12:29 17:00 WBC Hct MCV RDW Plt Count Lymph % (Auto) [place]osh % (Auto) Lymph # Mcintosh # Seg Neutrophils % Seg Neuts % (Manual) Lymphocytes % (Manual) Monocytes % (Manual) Nucleated RBC % Seg Neutrophils # Seg Neutrophils # Man Lymphocytes # (Manual) Monocytes # (Manual) APTT POC ABG pH POC ABG pO2 ABG pO2 ABG HCO3 ABG O2 Saturation ABG Base Excess Oxyhemoglobin Sodium Potassium Chloride Carbon Dioxide BUN Creatinine Glucose POC Glucose 184 H 303 H Lactic Acid Magnesium AST ALT Ammonia Troponin T Total Protein Albumin HDL Cholesterol TSH Salicylates Acetaminophen
[2018-12-22] MEDS: SINGULAIR PO SCH (19:13)
[2018-12-22] MEDS: ROCEPHIN/NS 2 GM/100 ML 2 GM/100 ML BAG IV SCH (22:32)
[2018-12-22] MEDS: HEPARIN SUB-Q SCH (22:33)
[2018-12-22] MEDS: SENOKOT PO SCH (22:33)
[2018-12-22] MEDS: DESYREL PO SCH (22:34)
[2018-12-22] MEDS: VISINE-A OU PRN (22:56)
[2018-12-22] MEDS: LANTUS SUB-Q SCH (22:57)
[2018-12-23] MEDS: DUONEB *Not for PRN Use IH SCH ×3 (03:15→13:46)
[2018-12-23] MEDS: NORCO 10/325 PO PRN ×2 (04:17→11:18)
[2018-12-23] MEDS: SORBITOL 70% PO SCH (05:13)
[2018-12-23] MEDS: HEPARIN SUB-Q SCH ×2 (05:13→15:02)
[2018-12-23] MEDS: LASIX PO SCH (05:13)
[2018-12-23 05:54] LABS: Hemoglobin 13.6 gm/dl (10.1-14.3)
[2018-12-23 06:01] LABS: Hematocrit 42.9 % (30.3-42.9); Mean Corpuscular HGB Conc 32 % (30-34); Mean Corpuscular Volume 99 fl (79-97); Platelet Count 141 K/mm3 (140-440); Red Blood Count 4.35 M/mm3 (3.65-5.03); Red Cell Distribution Width 15.7 % (13.2-15.2)
[2018-12-23] MEDS: ISORDIL TITRADOSE PO SCH ×2 (06:02→15:03)
[2018-12-23] MEDS: APRESOLINE PO SCH ×2 (06:03→15:03)
[2018-12-23 06:16] LABS: BUN/Creatinine Ratio 33; Blood Urea Nitrogen 23 mg/dL (7-17); Calcium 8.9 mg/dL (8.4-10.2); Hemolysis Index 101
[2018-12-23] MEDS: PULMICORT IH SCH (07:37)
--- NOTE | 2018-12-23 08:03 | Progress Note ---
Assessment and Plan Acute on chronic hypoxic, hypercapnic respiratory failure; Acute exacerbation of COPD; Hypertension; moderate control Acute kidney injury; vasomotor nephropathy History of congestive heart failure; EF 40-45% in April 2018 Type 2 diabetes mellitus; on insulin, A1c 10.4[6 months ago] Dyslipidemia Morbid obesity; BMI 54.9 Nonspecific elevation of troponin; probably type 2 h/o Psychiatric disorder Thrombocytopenia - Continue all care as outlined below. - Discussed with RN/RT - CXR in the morning - Oxygen restrictive strategies, wean down 50% venturi mask to oxygen via NC,O2 sats 88-90% acceptable - Increase activity - NIPPV qhs and prn during the day - Avoid narcotics - VTE prophylaxis while monitoring platelet counts - Avoid nephrotoxic agents, adjust all medications for CrCL/GFR - Accuchecks with glycemic control, target blood glucose 140-180mg/dL - Monitor renal function - Bronchodilators, ICS - Heart failure measures - Lifestyle modifications, weight loss - Chronic home anti-schizophrenia medications. CONDITION: FAIR PROGNOSIS: FAIR CODE STATUS: FULL CODE Subjective Date of service: 12/23/18 Interval history: Patient is seen today for: Acute and Chronic hypercapnic hypoxemic resp failure; AE-COPD; Morbid obesity; sleep apnea Seen and examined at bedside; 24hour events reviewed; nursing and respiratory care staff consulted; no adverse overnight events reported to me; Objective Vital Signs - 12hr 12/22/18 12/22/18 12/22/18 20:14 21:20 22:00 Temperature Pulse Rate 84 Pulse Rate [ 94 H Anterior Bilateral Throughout] Pulse Rate [ Anterior] Respiratory 20 Rate Respiratory 18 Rate [Anterior Bilateral Throughout] Respiratory Rate [Anterior] Respiratory 18 Rate [ Generalized] Blood Pressure O2 Sat by Pulse 95 94 Oximetry 12/22/18 12/22/18 12/22/18 22:35 22:57 23:26 Temperature 98.7 F Pulse Rate 92 H 90 Pulse Rate [ Anterior Bilateral Throughout] Pulse Rate [ Anterior] Respiratory 18 20 Rate Respiratory Rate [Anterior Bilateral Throughout] Respiratory Rate [Anterior] Respiratory Rate [ Generalized] Blood Pressure 107/65 103/63 O2 Sat by Pulse 95 Oximetry 12/22/18 12/23/18 12/23/18 23:43 00:04 03:15 Temperature Pulse Rate 90 84 Pulse Rate [ 94 H Anterior Bilateral Throughout] Pulse Rate [ Anterior] Respiratory 22 Rate Respiratory 20 Rate [Anterior Bilateral Throughout] Respiratory Rate [Anterior] Respiratory Rate [ Generalized] Blood Pressure 103/63 O2 Sat by Pulse 95 Oximetry 12/23/18 12/23/18 12/23/18 03:20 03:45 04:17 Temperature 98.0 F Pulse Rate 88 82 Pulse Rate [ Anterior Bilateral Throughout] Pulse Rate [ Anterior] Respiratory 16 16 18 Rate Respiratory Rate [Anterior Bilateral Throughout] Respiratory Rate [Anterior] Respiratory Rate [ Generalized] Blood Pressure 107/69 O2 Sat by Pulse 93 94 Oximetry 12/23/18 12/23/18 12/23/18 05:17 05:54 06:02 Temperature 98.0 F Pulse Rate 78 Pulse Rate [ Anterior Bilateral Throughout] Pulse Rate [ Anterior] Respiratory 16 16 Rate Respiratory Rate [Anterior Bilateral Throughout] Respiratory Rate [Anterior] Respiratory Rate [ Generalized] Blood Pressure 146/82 146/82 O2 Sat by Pulse Oximetry 12/23/18 12/23/18 06:03 07:40 Temperature Pulse Rate 78 Pulse Rate [ 94 H Anterior Bilateral Throughout] Pulse Rate [ 94 H Anterior] Respiratory Rate Respiratory 20 Rate [Anterior Bilateral Throughout] Respiratory 18 Rate [Anterior] Respiratory Rate [ Generalized] Blood Pressure 146/82 O2 Sat by Pulse 93 Oximetry Constitutional: no acute distress, alert, other (morbidly obese) Eyes: non-icteric ENT: oropharynx moist Neck: supple Ascultation: Bilateral: diminished breath sounds Cardiovascular: regular rate and rhythm Gastrointestinal: normoactive bowel sounds Integumentary: normal Extremities: no cyanosis Neurologic: normal mental status Psychiatric: mood appropriate, affect normal CBC and BMP: 12/23/18 Unknown 12/23/18 05:32 ABG, PT/INR, D-dimer: ABG POC ABG pH 7.324 (7.35-7.45) L 12/18/18 15:03 ABG pH 7.403 pH Units (7.350-7.450) 12/19/18 12:30 ABG pCO2 68.3 mm Hg 12/19/18 12:30 POC ABG pO2 51 (80-105) L 12/18/18 15:03 ABG pO2 45.5 mm Hg (80.0-90.0) L 12/19/18 12:30 POC ABG HCO3 43.3 (22-26 mml/L) 12/18/18 15:03 POC ABG Total CO2 46 (23-27mmol/L) 12/18/18 15:03 POC ABG O2 Sat 80 12/18/18 15:03 ABG O2 Saturation 81.0 % (95.0-99.0) L 12/19/18 12:30 PT/INR, D-dimer PT 13.5 Sec. (12.2-14.9) 12/14/18 06:45 INR 1.06 (0.87-1.13) 12/14/18 06:45 Abnormal lab findings: Abnormal Labs 12/14/18 12/14/18 12/14/18 06:00 06:00 06:00 WBC 15.2 H Hct 45.4 H MCV 101 H RDW 17.5 H Plt Count Lymph % (Auto) [place] % (Auto) 9.6 H Lymph # [place] # 1.5 H Seg Neutrophils % 77.0 H Seg Neuts % (Manual) 87.0 H Lymphocytes % (Manual) 2.0 L Monocytes % (Manual) 10.0 H Nucleated RBC % 3.0 H Seg Neutrophils # 11.7 H Seg Neutrophils # Man 13.2 H Lymphocytes # (Manual) 0.3 L Monocytes # (Manual) 1.5 H APTT POC ABG pH POC ABG pO2 ABG pO2 ABG HCO3 ABG O2 Saturation ABG Base Excess Oxyhemoglobin Sodium 135 L Potassium 5.4 H Chloride 90.4 L Carbon Dioxide 32 H BUN 21 H Creatinine 1.6 H Glucose 380 H POC Glucose Lactic Acid Magnesium AST 58 H ALT Ammonia Troponin T 0.178 H* Total Protein 5.8 L Albumin 3.5 L HDL Cholesterol 82 H TSH 6.220 H Salicylates Acetaminophen 12/14/18 12/14/18 12/14/18 06:00 06:00 06:03 WBC Hct MCV RDW Plt Count Lymph % (Auto) [place] % (Auto) Lymph # [place] # Seg Neutrophils % Seg Neuts % (Manual) Lymphocytes % (Manual) Monocytes % (Manual) Nucleated RBC % Seg Neutrophils # Seg Neutrophils # Man Lymphocytes # (Manual) Monocytes # (Manual) APTT POC ABG pH POC ABG pO2 ABG pO2 ABG HCO3 ABG O2 Saturation ABG Base Excess Oxyhemoglobin Sodium Potassium Chloride Carbon Dioxide BUN Creatinine Glucose POC Glucose 266 H Lactic Acid Magnesium AST ALT Ammonia Troponin T Total Protein Albumin HDL Cholesterol TSH Salicylates < 0.3 L Acetaminophen < 5.0 L 12/14/18 12/14/18 12/14/18 06:45 06:45 07:31 WBC Hct MCV RDW Plt Count Lymph % (Auto) [place] % (Auto) Lymph # [place] # Seg Neutrophils % Seg Neuts % (Manual) Lymphocytes % (Manual) Monocytes % (Manual) Nucleated RBC % Seg Neutrophils # Seg Neutrophils # Man Lymphocytes # (Manual) Monocytes # (Manual) APTT 22.8 L POC ABG pH 7.153 L POC ABG pO2 122 H ABG pO2 ABG HCO3 ABG O2 Saturation ABG Base Excess Oxyhemoglobin Sodium Potassium Chloride Carbon Dioxide BUN Creatinine Glucose POC Glucose Lactic Acid Magnesium AST ALT Ammonia 86.0 H Troponin T Total Protein Albumin HDL Cholesterol TSH Salicylates Acetaminophen 12/14/18 12/14/18 12/14/18 07:46 09:52 09:57 WBC Hct MCV RDW Plt Count Lymph % (Auto) [place] % (Auto) Lymph # [place] # Seg Neutrophils % Seg Neuts % (Manual) Lymphocytes % (Manual) Monocytes % (Manual) Nucleated RBC % Seg Neutrophils # Seg Neutrophils # Man Lymphocytes # (Manual) Monocytes # (Manual) APTT POC ABG pH 7.269 L POC ABG pO2 63 L ABG pO2 ABG HCO3 ABG O2 Saturation ABG Base Excess Oxyhemoglobin Sodium Potassium Chloride Carbon Dioxide BUN Creatinine Glucose POC Glucose Lactic Acid 2.40 H* 2.20 H* Magnesium AST ALT Ammonia Troponin T Total Protein Albumin HDL Cholesterol TSH Salicylates Acetaminophen 12/14/18 12/15/18 12/15/18 17:51 12:14 22:38 WBC Hct MCV RDW Plt Count Lymph % (Auto) [place] % (Auto) Lymph # [place] # Seg Neutrophils % Seg Neuts % (Manual) Lymphocytes % (Manual) Monocytes % (Manual) Nucleated RBC % Seg Neutrophils # Seg Neutrophils # Man Lymphocytes # (Manual) Monocytes # (Manual) APTT POC ABG pH 7.293 L POC ABG pO2 73 L ABG pO2 ABG HCO3 ABG O2 Saturation ABG Base Excess Oxyhemoglobin Sodium Potassium Chloride Carbon Dioxide BUN Creatinine Glucose POC Glucose 247 H 376 H Lactic Acid Magnesium AST ALT Ammonia Troponin T Total Protein Albumin HDL Cholesterol TSH Salicylates Acetaminophen 12/16/18 12/16/18 12/16/18 05:59 05:59 08:16 WBC Hct MCV 99 H RDW 16.6 H Plt Count 114 L Lymph % (Auto) 8.1 L [place] % (Auto) Lymph # 0.7 L [place] # Seg Neutrophils % 84.2 H Seg Neuts % (Manual) Lymphocytes % (Manual) Monocytes % (Manual) Nucleated RBC % Seg Neutrophils # Seg Neutrophils # Man Lymphocytes # (Manual) Monocytes # (Manual) APTT POC ABG pH POC ABG pO2 ABG pO2 ABG HCO3 ABG O2 Saturation ABG Base Excess Oxyhemoglobin Sodium Potassium 5.4 H Chloride 96.0 L Carbon Dioxide 40 H D BUN 27 H Creatinine Glucose 355 H POC Glucose 305 H Lactic Acid Magnesium AST ALT 87 H Ammonia Troponin T Total Protein 6.0 L Albumin 3.2 L HDL Cholesterol TSH Salicylates Acetaminophen 12/16/18 12/16/18 12/16/18 11:45 16:22 21:15 WBC Hct MCV RDW Plt Count Lymph % (Auto) [place] % (Auto) Lymph # [place] # Seg Neutrophils % Seg Neuts % (Manual) Lymphocytes % (Manual) Monocytes % (Manual) Nucleated RBC % Seg Neutrophils # Seg Neutrophils # Man Lymphocytes # (Manual) Monocytes # (Manual) APTT POC ABG pH POC ABG pO2 ABG pO2 ABG HCO3 ABG O2 Saturation ABG Base Excess Oxyhemoglobin Sodium Potassium Chloride Carbon Dioxide BUN Creatinine Glucose POC Glucose 361 H 265 H 254 H Lactic Acid Magnesium AST ALT Ammonia Troponin T Total Protein Albumin HDL Cholesterol TSH Salicylates Acetaminophen 12/17/18 12/17/18 12/17/18 08:43 12:03 16:58 WBC Hct MCV RDW Plt Count Lymph % (Auto) [place] % (Auto) Lymph # [place] # Seg Neutrophils % Seg Neuts % (Manual) Lymphocytes % (Manual) Monocytes % (Manual) Nucleated RBC % Seg Neutrophils # Seg Neutrophils # Man Lymphocytes # (Manual) Monocytes # (Manual) APTT POC ABG pH POC ABG pO2 ABG pO2 ABG HCO3 ABG O2 Saturation ABG Base Excess Oxyhemoglobin Sodium Potassium 5.6 H Chloride 96.4 L Carbon Dioxide 38 H BUN 25 H Creatinine Glucose 266 H POC Glucose 265 H 343 H Lactic Acid Magnesium AST ALT Ammonia Troponin T Total Protein Albumin HDL Cholesterol TSH Salicylates Acetaminophen 12/17/18 12/17/18 12/18/18 17:16 21:47 05:37 WBC Hct MCV RDW Plt Count Lymph % (Auto) [place] % (Auto) Lymph # [place] # Seg Neutrophils % Seg Neuts % (Manual) Lymphocytes % (Manual) Monocytes % (Manual) Nucleated RBC % Seg Neutrophils # Seg Neutrophils # Man Lymphocytes # (Manual) Monocytes # (Manual) APTT POC ABG pH POC ABG pO2 ABG pO2 ABG HCO3 ABG O2 Saturation ABG Base Excess Oxyhemoglobin Sodium Potassium 5.9 H Chloride 97.3 L Carbon Dioxide 33 H BUN 24 H Creatinine Glucose 259 H POC Glucose 251 H 304 H Lactic Acid Magnesium 2.80 H AST ALT Ammonia Troponin T Total Protein Albumin HDL Cholesterol TSH Salicylates Acetaminophen 12/18/18 12/18/18 12/18/18 07:38 11:36 15:03 WBC Hct MCV RDW Plt Count Lymph % (Auto) [place] % (Auto) Lymph # [place] # Seg Neutrophils % Seg Neuts % (Manual) Lymphocytes % (Manual) Monocytes % (Manual) Nucleated RBC % Seg Neutrophils # Seg Neutrophils # Man Lymphocytes # (Manual) Monocytes # (Manual) APTT POC ABG pH 7.324 L POC ABG pO2 51 L ABG pO2 ABG HCO3 ABG O2 Saturation ABG Base Excess Oxyhemoglobin Sodium Potassium Chloride Carbon Dioxide BUN Creatinine Glucose POC Glucose 288 H 326 H Lactic Acid Magnesium AST ALT Ammonia Troponin T Total Protein Albumin HDL Cholesterol TSH Salicylates Acetaminophen 12/18/18 12/18/18 12/19/18 17:08 21:15 08:17 WBC Hct MCV RDW Plt Count Lymph % (Auto) [place] % (Auto) Lymph # [place] # Seg Neutrophils % Seg Neuts % (Manual) Lymphocytes % (Manual) Monocytes % (Manual) Nucleated RBC % Seg Neutrophils # Seg Neutrophils # Man Lymphocytes # (Manual) Monocytes # (Manual) APTT POC ABG pH POC ABG pO2 ABG pO2 ABG HCO3 ABG O2 Saturation ABG Base Excess Oxyhemoglobin Sodium Potassium Chloride Carbon Dioxide BUN Creatinine Glucose POC Glucose 208 H 268 H 306 H Lactic Acid Magnesium AST ALT Ammonia Troponin T Total Protein Albumin HDL Cholesterol TSH Salicylates Acetaminophen 12/19/18 12/19/18 12/19/18 11:44 12:30 16:13 WBC Hct MCV RDW Plt Count Lymph % (Auto) [place] % (Auto) Lymph # [place] # Seg Neutrophils % Seg Neuts % (Manual) Lymphocytes % (Manual) Monocytes % (Manual) Nucleated RBC % Seg Neutrophils # Seg Neutrophils # Man Lymphocytes # (Manual) Monocytes # (Manual) APTT POC ABG pH POC ABG pO2 ABG pO2 45.5 L ABG HCO3 41.6 H ABG O2 Saturation 81.0 L ABG Base Excess 13.6 H Oxyhemoglobin 78.6 L Sodium Potassium Chloride Carbon Dioxide BUN Creatinine Glucose POC Glucose 265 H 245 H Lactic Acid Magnesium AST ALT Ammonia Troponin T Total Protein Albumin HDL Cholesterol TSH Salicylates Acetaminophen 12/19/18 12/20/18 12/20/18 21:55 07:09 07:09 WBC Hct MCV 98 H RDW 16.2 H Plt Count 126 L Lymph % (Auto) [place] % (Auto) 12.2 H Lymph # [place] # 0.9 H Seg Neutrophils % Seg Neuts % (Manual) Lymphocytes % (Manual) Monocytes % (Manual) Nucleated RBC % Seg Neutrophils # Seg Neutrophils # Man Lymphocytes # (Manual) Monocytes # (Manual) APTT POC ABG pH POC ABG pO2 ABG pO2 ABG HCO3 ABG O2 Saturation ABG Base Excess Oxyhemoglobin Sodium Potassium 5.1 H Chloride 96.5 L Carbon Dioxide 38 H BUN 26 H Creatinine Glucose 248 H POC Glucose 211 H Lactic Acid Magnesium AST ALT Ammonia Troponin T Total Protein Albumin HDL Cholesterol TSH Salicylates Acetaminophen 12/20/18 12/20/18 12/20/18 07:24 11:43 16:51 WBC Hct MCV RDW Plt Count Lymph % (Auto) [place] % (Auto) Lymph # [place] # Seg Neutrophils % Seg Neuts % (Manual) Lymphocytes % (Manual) Monocytes % (Manual) Nucleated RBC % Seg Neutrophils # Seg Neutrophils # Man Lymphocytes # (Manual) Monocytes # (Manual) APTT POC ABG pH POC ABG pO2 ABG pO2 ABG HCO3 ABG O2 Saturation ABG Base Excess Oxyhemoglobin Sodium Potassium Chloride Carbon Dioxide BUN Creatinine Glucose POC Glucose 223 H 253 H 219 H Lactic Acid Magnesium AST ALT Ammonia Troponin T Total Protein Albumin HDL Cholesterol TSH Salicylates Acetaminophen 12/20/18 12/21/18 12/21/18 21:06 07:49 12:53 WBC Hct MCV RDW Plt Count Lymph % (Auto) [place] % (Auto) Lymph # [place] # Seg Neutrophils % Seg Neuts % (Manual) Lymphocytes % (Manual) Monocytes % (Manual) Nucleated RBC % Seg Neutrophils # Seg Neutrophils # Man Lymphocytes # (Manual) Monocytes # (Manual) APTT POC ABG pH POC ABG pO2 ABG pO2 ABG HCO3 ABG O2 Saturation ABG Base Excess Oxyhemoglobin Sodium Potassium Chloride Carbon Dioxide BUN Creatinine Glucose POC Glucose 197 H 266 H 261 H Lactic Acid Magnesium AST ALT Ammonia Troponin T Total Protein Albumin HDL Cholesterol TSH Salicylates Acetaminophen 12/21/18 12/21/18 12/22/18 16:33 20:57 08:24 WBC Hct MCV RDW Plt Count Lymph % (Auto) [place] % (Auto) Lymph # [place] # Seg Neutrophils % Seg Neuts % (Manual) Lymphocytes % (Manual) Monocytes % (Manual) Nucleated RBC % Seg Neutrophils # Seg Neutrophils # Man Lymphocytes # (Manual) Monocytes # (Manual) APTT POC ABG pH POC ABG pO2 ABG pO2 ABG HCO3 ABG O2 Saturation ABG Base Excess Oxyhemoglobin Sodium Potassium Chloride Carbon Dioxide BUN Creatinine Glucose POC Glucose 253 H 238 H 229 H Lactic Acid Magnesium AST ALT Ammonia Troponin T Total Protein Albumin HDL Cholesterol TSH Salicylates Acetaminophen 12/22/18 12/22/18 12/22/18 12:29 17:00 21:06 WBC Hct MCV RDW Plt Count Lymph % (Auto) [place] % (Auto) Lymph # [place] # Seg Neutrophils % Seg Neuts % (Manual) Lymphocytes % (Manual) Monocytes % (Manual) Nucleated RBC % Seg Neutrophils # Seg Neutrophils # Man Lymphocytes # (Manual) Monocytes # (Manual) APTT POC ABG pH POC ABG pO2 ABG pO2 ABG HCO3 ABG O2 Saturation ABG Base Excess Oxyhemoglobin Sodium Potassium Chloride Carbon Dioxide BUN Creatinine Glucose POC Glucose 184 H 303 H 242 H Lactic Acid Magnesium AST ALT Ammonia Troponin T Total Protein Albumin HDL Cholesterol TSH Salicylates Acetaminophen 12/23/18 12/23/18 05:32 Unknown WBC Hct MCV 99 H RDW 15.7 H Plt Count Lymph % (Auto) [place] % (Auto) Lymph # [place] # Seg Neutrophils % Seg Neuts % (Manual) Lymphocytes % (Manual) Monocytes % (Manual) Nucleated RBC % Seg Neutrophils # Seg Neutrophils # Man Lymphocytes # (Manual) Monocytes # (Manual) APTT POC ABG pH POC ABG pO2 ABG pO2 ABG HCO3 ABG O2 Saturation ABG Base Excess Oxyhemoglobin Sodium Potassium 5.2 H Chloride 97.8 L Carbon Dioxide 39 H BUN 23 H Creatinine Glucose 137 H POC Glucose Lactic Acid Magnesium AST ALT Ammonia Troponin T Total Protein Albumin HDL Cholesterol TSH Salicylates Acetaminophen
[2018-12-23] MEDS: HumaLOG SUB-Q SCH ×4 (09:19→12:08)
[2018-12-23] MEDS: CLARITIN PO SCH (11:19)
[2018-12-23] MEDS: COREG PO SCH (11:19)
[2018-12-23] MEDS: COZAAR PO SCH (11:19)
[2018-12-23] MEDS: PEPCID PO SCH (11:19)
[2018-12-23] MEDS: DELTASONE PO SCH (11:19)
[2018-12-23] MEDS: ATIVAN PO SCH (11:19)
[2018-12-23] MEDS: KIONEX PO SCH ×2 (11:20→16:17)
--- NOTE | 2018-12-23 11:59 | Discharge Summary ---
Providers - Providers Date of Admission: 12/14/18 13:18 Attending physician: MARY DEE MD 12/15/18 18:40 Consult to Physician [CONS] Routine Comment: Consulting Provider: MILEY GALLEGOS Physician Instructions: Reason For Exam: Acute on chronic resp failure 12/16/18 17:27 Physical Therapy Evaluation and Treat [CONS] Routine Comment: Reason For Exam: gen debility/obesity Primary care physician: [facility], [facility] Hospitalization Condition: Stable Hospital course: BIPAP 20/10, rate 16 as standby in the room. Recommend physical therapy consultation for OOB in chair as tolerated. Disposition: DC/TX-03 [facility] CERT Exam - Constitutional Vitals: Temp Pulse Resp BP Pulse Ox 98.0 F 94 H 22 146/82 93 12/23/18 05:54 12/23/18 07:40 12/23/18 11:18 12/23/18 06:03 12/23/18 07:40 Plan Activity: advance as tolerated, fall precautions Diet: low fat, low salt, diabetic Special Instructions: record daily weights, record daily BP diary, record blood sugar diary, home oxygen via (nc 6-8 liter) Follow up with: PRIMARY CAREMD [Referring] - 3-5 Days MAYTE KOVACS MD [Staff Physician] - 7 Days PILLO NICKERSON MD [Staff Physician] - 7 Days
[2018-12-23] MEDS: FLONASE NS SCH (15:01)
[2018-12-23] MEDS: VISINE-A OU PRN (15:01)
[2018-12-23] MEDS: ECOTRIN PO SCH (15:02)
[2018-12-23] MEDS: WELLBUTRIN SR PO SCH (15:02)
[2018-12-23 15:04] VITALS: BP 108/69
== END 2018-12-23 17:10 | DRG 280 ==
LOC: ED 05:37 → CC1 13:18 → IMCU 16:30 → 4A 12-18 15:21
PROVIDERS: ADMIT Internal Medicine; ATTEND Internal Medicine
PROC: 4A033R1 Measurement of Arterial Saturation, Peripheral, Percutaneous Approach (ICD-10-PCS; principal; 2018-12-14)
PROC: 5A09357 Assistance with Respiratory Ventilation, Less than 24 Consecutive Hours, Continuous Positive Airway Pressure (ICD-10-PCS; 2018-12-14)
PROC: 5A09357 Assistance with Respiratory Ventilation, Less than 24 Consecutive Hours, Continuous Positive Airway Pressure (ICD-10-PCS; 2018-12-15)
PROC: 5A09357 Assistance with Respiratory Ventilation, Less than 24 Consecutive Hours, Continuous Positive Airway Pressure (ICD-10-PCS; 2018-12-16)
PROC: 5A09357 Assistance with Respiratory Ventilation, Less than 24 Consecutive Hours, Continuous Positive Airway Pressure (ICD-10-PCS; 2018-12-18)
PROC: 5A09357 Assistance with Respiratory Ventilation, Less than 24 Consecutive Hours, Continuous Positive Airway Pressure (ICD-10-PCS; 2018-12-19)
PROC: 5A09357 Assistance with Respiratory Ventilation, Less than 24 Consecutive Hours, Continuous Positive Airway Pressure (ICD-10-PCS; 2018-12-20)
PROC: 5A09357 Assistance with Respiratory Ventilation, Less than 24 Consecutive Hours, Continuous Positive Airway Pressure (ICD-10-PCS; 2018-12-21)
PROC: 5A09357 Assistance with Respiratory Ventilation, Less than 24 Consecutive Hours, Continuous Positive Airway Pressure (ICD-10-PCS; 2018-12-22)
PROC: 5A09357 Assistance with Respiratory Ventilation, Less than 24 Consecutive Hours, Continuous Positive Airway Pressure (ICD-10-PCS; 2018-12-23)
DX: I21.A1 Myocardial infarction type 2 (principal); N17.0 Acute kidney failure with tubular necrosis; J96.22 Acute and chronic respiratory failure with hypercapnia; J96.21 Acute and chronic respiratory failure with hypoxia; R53.2 Functional quadriplegia; I50.23 Acute on chronic systolic (congestive) heart failure; E72.20 Disorder of urea cycle metabolism, unspecified; E87.2 Acidosis; J44.1 Chronic obstructive pulmonary disease with (acute) exacerbation; E66.2 Morbid (severe) obesity with alveolar hypoventilation; Z68.43 Body mass index [BMI] 50.0-59.9, adult; E44.0 Moderate protein-calorie malnutrition; E87.5 Hyperkalemia; D69.6 Thrombocytopenia, unspecified; E78.2 Mixed hyperlipidemia; F32.9 Major depressive disorder, single episode, unspecified; I11.0 Hypertensive heart disease with heart failure; E11.65 Type 2 diabetes mellitus with hyperglycemia; Z90.711 Acquired absence of uterus with remaining cervical stump; Z82.49 Family history of ischemic heart disease and other diseases of the circulatory system; Z86.711 Personal history of pulmonary embolism; I25.2 Old myocardial infarction; Z87.891 Personal history of nicotine dependence; Z79.84 Long term (current) use of oral hypoglycemic drugs; Z79.899 Other long term (current) drug therapy; Z79.4 Long term (current) use of insulin
CPT/HCPCS: 36415; 36600; 70450; 71045; 80048; 80053; 80061; 80307; 80320; 81001; 82140; 82803; 82962; 83735; 84439; 84443; 84484; 85007; 85025; 85027; 85610; 85730; 87040; 93005; 93010; 94640; 94660; 94760; 96361; 96365; 96375; G0378; A9270-GY; G0480; J0456; J0696; J1644; J1815; J1956; J2310; J2920; J2930; J7030; J7050; J7512

== ENCOUNTER 2019-01-31 01:19 | Emergency (ER) | payer MEDICARE ==
[2019-01-31] MEDS ORDERED: ADRENALIN ONE (01:20)
--- NOTE | 2019-01-31 01:36 | Emergency Department Report ---
HPI - General Time Seen by Provider: 01/31/19 01:32 - HPI HPI: Room 21 The patient is a 48-year-old female presenting with chief complaint of cardiac arrest. Per EMS and received a call for "person pain." EMS arrived on scene at 00:48 and made patient contact approximately 00:58 to find the patient in asystole. Patient was brought veronika initiated in the right lower extremity IO was established. EMS was unable to intubate the patient and they were subsequently bagged via BVM. Arrival to the ED the patient was intubated by myself with a 7.0 ET tube and ACLS protocols were continued. There was no return of spontaneous circulation ED Past Medical Hx - Past Medical History Hx Hypertension: Yes Hx Heart Attack/AMI: Yes Hx Congestive Heart Failure: Yes Hx Diabetes: Yes Hx Pulmonary Embolism: Yes Hx Arthritis: Yes Hx Psychiatric Treatment: Yes (hx of schizophrenia, major depressive disorder) Hx Asthma: Yes Hx COPD: Yes Hx Dementia: Yes Additional medical history: Dysphasia. obstructive sleep apnea - Surgical History Additional Surgical History: Partial hysterectomy. Tracheostomy - Family History Family history: no significant - Social History Smoking Status: Unknown if ever smoked Substance Use Type: None - Medications Home Medications: Home Medications Medication Instructions Recorded Confirmed Last Taken Type ALBUTEROL NEB's [Proventil 0.083% 2.5 mg IH Q3HRT PRN #15 nebu 10/22/18 12/14/18 12/13/18 Rx NEBS] Acetaminophen [Acetaminophen TAB] 325 mg PO Q6H PRN #15 tablet 10/22/18 12/14/18 12/13/18 Rx Aspirin EC 325 mg PO DAILY #30 10/22/18 12/14/18 12/13/18 Rx AtorvaSTATin [Lipitor] 40 mg PO QHS #30 tablet 10/22/18 12/14/18 12/13/18 Rx Benzocaine/Mentho [Cepacol X 1 each MM Q2HR PRN #15 packet 10/22/18 12/14/18 11/22/18 Rx Strength] Budesonide [Pulmicort Respules] 0.5 mg IH Q12HRT #30 nebu 10/22/18 12/14/18 12/13/18 Rx Carvedilol [Coreg] 6.25 mg PO BID #60 tablet 10/22/18 12/14/18 12/13/18 Rx Famotidine [Pepcid] 20 mg PO DAILY #15 tablet 10/22/18 12/14/18 12/05/18 Rx Fluticasone [Flonase] 1 spray NS BID #1 10/22/18 12/14/18 12/05/18 Rx Furosemide [Lasix TAB] 20 mg PO QDAY #30 tablet 10/22/18 12/14/18 12/13/18 Rx HYDROcodone/APAP 10-325 [[place] 1 each PO Q4H PRN #15 tablet 10/22/18 12/14/18 12/13/18 Rx 10-325 mg TAB] Insulin Glargine [Lantus VIAL] 16 units SUB-Q QHS #30 units 10/22/18 12/14/18 12/13/18 Rx Ipratropium/Albuterol Sulfate 1 ampul IH Q6HRT #30 ampul.neb 10/22/18 12/14/18 12/13/18 Rx [DUONEB *Not for PRN Use*] Isosorbide Dinitrate [Isordil 20 mg PO Q8H #30 tablet 10/22/18 12/14/18 12/13/18 Rx Titradose] LORazepam [Ativan] 0.5 mg PO DAILY #15 10/22/18 12/14/18 12/13/18 Rx Lispro Insulin [HumaLOG] 1 dose SUB-Q Q6HR #100 units 10/22/18 12/14/18 12/13/18 Rx Loratadine [Claritin] 10 mg PO DAILY #30 tab 10/22/18 12/14/18 11/29/18 Rx Losartan [Cozaar] 50 mg PO QDAY #30 tablet 10/22/18 12/14/18 12/13/18 Rx Montelukast [Singulair] 10 mg PO QHS #30 tablet 10/22/18 12/14/18 12/13/18 Rx Polyethylene Glycol 3350 [Miralax 17 gm PO QDAY PRN #15 powd.pack 10/22/18 12/14/18 12/13/18 Rx 3350] QUEtiapine [SEROquel] 300 mg PO BID #60 tablet 10/22/18 12/14/18 12/13/18 Rx Sennosides Tab [Senokot] 17.2 mg PO HS #30 10/22/18 12/14/18 12/13/18 Rx Sorbitol 70% 30 ml PO Q12H #30 10/22/18 12/14/18 12/13/18 Rx Spironolactone [Aldactone] 25 mg PO QDAY #30 tablet 10/22/18 12/14/18 12/13/18 Rx buPROPion SR [Wellbutrin SR] 100 mg PO DAILY #30 10/22/18 12/14/18 12/13/18 Rx carBAMazepine [Carbamazepine] 200 mg PO DAILY #30 10/22/18 12/14/18 12/13/18 Rx hydrALAZINE [Apresoline TAB] 37.5 mg PO Q8H #30 tablet 10/22/18 12/14/18 12/13/18 Rx predniSONE [Deltasone] 40 mg PO QDAY tablet 10/22/18 12/14/18 12/13/18 Rx traZODone [Desyrel] 50 mg PO QHS #30 10/22/18 12/14/18 12/13/18 Rx ED Review of Systems ROS: Stated complaint: CARDIAC ARREST Other details as noted in HPI Comment: Unobtainable due to pts medical conditions Physical Exam - Physical Exam Physical Exam: GENERAL: The patient is well-developed well-nourished female lying on stretcher receiving chest compressions and being bagged via BVM. [] HEENT: Normocephalic. Atraumatic. NECK: Trachea midline CHEST/LUNGS: No spontaneous respirations. Breath sounds equal bilaterally with bagging after intubation by myself HEART/CARDIOVASCULAR: No heart sounds. Asystole on monitor ABDOMEN: Abdomen is soft and obese SKIN: There is no diaphoresis. NEURO: GCS 3 MUSCULOSKELETAL: Right lower extremity IO present. There is no evidence of acute injury. - Intubation Time Out Performed: No Sedative: none Laryngoscope: Lis Size: 4 ET Tube Size: 7 Tube Secured Depth (cm): 21 Tube Secured Location: lips Tube Placement Confirmation: equal breath sounds bilat, no breath sounds over epi Patient Tolerated Procedure: other Intubation Complications: other (first attempted intubation resulted in esophageal intubation. ET tube was removed at second attempt with Mac 4 blade was successful) ED Medical Decision Making - Differential Diagnosis cardiac arrest Critical care attestation.: If time is entered above; I have spent that time in minutes in the direct care of this critically ill patient, excluding procedure time. ED Disposition Clinical Impression: Cardiac arrest Disposition: DC-20 Is pt being admited?: No Does the pt Need Aspirin: No Condition: Poor Time of Disposition: 01:33 (patient )
== END 2019-01-31 04:00 ==
LOC: ED 01:19
DX: I46.9 Cardiac arrest, cause unspecified (principal); I11.0 Hypertensive heart disease with heart failure; I50.9 Heart failure, unspecified; I25.2 Old myocardial infarction; E11.9 Type 2 diabetes mellitus without complications; I26.99 Other pulmonary embolism without acute cor pulmonale; M19.90 Unspecified osteoarthritis, unspecified site; J44.9 Chronic obstructive pulmonary disease, unspecified; F03.90 Unspecified dementia, unspecified severity, without behavioral disturbance, psychotic disturbance, mood disturbance, and anxiety; F20.9 Schizophrenia, unspecified; Z90.710 Acquired absence of both cervix and uterus; Z79.899 Other long term (current) drug therapy; Z88.0 Allergy status to penicillin; Z88.2 Allergy status to sulfonamides
CPT/HCPCS: 31500; 92950; 99285; J0171